=== PATIENT | male | born 1945 | race Caucasian/White ===

== ENCOUNTER 2023-02-02 15:00 | Outpatient (OUT) | payer MEDICARE, SELFPAY | END 2023-02-05 19:02 | disposition home or self-care (01) | PROVIDERS: PCP Internal Medicine; Visit Provider Surgery | DX: Z01.818 Encounter for other preprocedural examination (principal); Z86.010 Personal history of colon polyps; Z79.01 Long term (current) use of anticoagulants ==

== ENCOUNTER 2023-02-10 08:54 | Day surgery (SDC) | payer MEDICARE, SELFPAY ==
--- NOTE | 2023-02-10 | OP_ITS ---
OPERATION DATE: ??02/10/2023 PREOPERATIVE DIAGNOSIS:? Surveillance colonoscopy with personal history of colon polyps. POSTOPERATIVE DIAGNOSIS:? A 2 mm sigmoid polyp. PROCEDURE:? Colonoscopy to cecum with cold snare polypectomy x1 for sigmoid polyp. SURGEON:? Silas Herrera M.D. ANESTHESIA:? Monitored anesthesia care. ESTIMATED BLOOD LOSS:? 1 mL. INDICATIONS AND CONSENT:? Patient is a 77-year-old male with personal history of colon polyps, presents for surveillance colonoscopy.? Indications, risks, benefits, alternatives of proceeding with colonoscopy were explained extensively to the patient, including the risks of bleeding, colon perforation or anesthetic complications.? All of his questions were answered.? Informed consent was obtained. PROCEDURE:? Patient brought to the operating room, placed in the left lateral decubitus position.? Monitored anesthesia care was provided.? Rectal exam was performed which showed no masses or blood.? The scope was inserted into the anal canal.? Under direct visualization was advanced.? It was advanced to the cecum where cecal markings were clearly identified.? There was noted to be a good prep.? Upon withdrawal of the scope, mucosal surfaces were carefully examined.? There were no mass lesions or inflammatory changes.? There was mild sigmoid diverticulosis.? In the distal sigmoid, there was noted to be a 2 mm sigmoid polyp that was removed with cold snare with good hemostasis.? The scope was retroflexed in the anal canal.? There was no significant hemorrhoidal disease.? Scope was then withdrawn.? Patient tolerated procedure well, was sent to recovery room in good condition. Follow up colonoscopy for surveillance should be in five years.? CC:? Patient?s family physician KASSY
[2023-02-10 09:15] VITALS: BP 108/60; PULSE 74; RESP 24; TEMP 36; O2SAT 92; BMI 26.1
[2023-02-10] MEDS: LACTATED RINGER'S SOLUTION 1,000 ML 50 ML IV (09:23)
[2023-02-10 10:53] VITALS: BP 110/56; PULSE 72; RESP 20; TEMP 36.3; O2SAT 95
[2023-02-10 11:04] VITALS: BP 98/73; PULSE 66; RESP 20; O2SAT 93
== END 2023-02-10 11:05 | disposition home or self-care (01) ==
PROVIDERS: PCP Internal Medicine; Visit Provider Surgery
PROC: (CPT 45385; principal; 2023-02-10 11:15)
DX: K57.30 Diverticulosis of large intestine without perforation or abscess without bleeding (principal); K63.5 Polyp of colon; Z86.010 Personal history of colon polyps; I35.0 Nonrheumatic aortic (valve) stenosis; I25.10 Atherosclerotic heart disease of native coronary artery without angina pectoris; I48.91 Unspecified atrial fibrillation; N40.0 Benign prostatic hyperplasia without lower urinary tract symptoms; F32.A Depression, unspecified; I10 Essential (primary) hypertension; Z87.891 Personal history of nicotine dependence; E78.00 Pure hypercholesterolemia, unspecified; E78.5 Hyperlipidemia, unspecified; G47.33 Obstructive sleep apnea (adult) (pediatric); J43.8 Other emphysema; I49.5 Sick sinus syndrome; Z79.01 Long term (current) use of anticoagulants; Z95.0 Presence of cardiac pacemaker; Z79.82 Long term (current) use of aspirin; Z79.899 Other long term (current) drug therapy; Z99.81 Dependence on supplemental oxygen; N52.1 Erectile dysfunction due to diseases classified elsewhere; I77.1 Stricture of artery
CPT/HCPCS: 45385; 88305; J2704

== ENCOUNTER 2023-02-17 10:13 | Outpatient (OUT) | payer MEDICARE, SELFPAY ==
--- NOTE | 2023-02-10 | OP_ITS ---
OPERATION DATE: ??02/10/2023 PREOPERATIVE DIAGNOSIS:? Personal history of colon polyps. POSTOPERATIVE DIAGNOSIS:? 2 mm sigmoid polyp, also sigmoid diverticulosis. PROCEDURE:? Colonoscopy to cecum with cold snare polypectomy x1. SURGEON:? Silas Herrera M.D. ANESTHESIA:? Monitored anesthesia care. ESTIMATED BLOOD LOSS:? Less than 1 mL. INDICATIONS AND CONSENT:? Patient is a 77-year-old male with multiple medical problems, with a personal history of colon polyps.? Indications, risks, benefits, alternatives of proceeding with colonoscopy were explained extensively to the patient, including the risks of bleeding, colon perforation or anesthetic complications.? All of his questions were answered.? Informed consent was obtained.? PROCEDURE:? Patient brought to the operating room, placed in the left lateral decubitus position.? Monitored anesthesia care was provided.? Rectal exam was performed which showed no masses or blood.? The scope was inserted into the anal canal.? Under direct visualization was advanced.? It was advanced to the cecum where cecal markings were clearly identified.? Upon withdrawal of the scope, mucosal surfaces were carefully examined.? There were no mass lesions or inflammatory changes.? There was moderate sigmoid and descending colon diverticulosis without inflammatory changes or scarring.?? In the distal sigmoid, there was noted to be a 2 mm sessile polyp that was removed with cold snare with good hemostasis.? The scope was retroflexed in the anal canal.? There was no significant hemorrhoidal disease.? The scope was then withdrawn.? Patient tolerated procedure well, was sent to recovery room in good condition. f/u colonoscopy should be in 5 years, but may change based on pathology results. CC:? Camille Ahuja
--- NOTE | 2023-02-17 10:33 | CT_ITS ---
[address] [address] Patient Name: BERNARD HERRERA MRN: [id number] date: 1945 Sex: M Assigned Patient Location: CT Current Patient Location: CT Accession/Order Number: [id number] Exam Date: 02/17/2023 10:25 Report Date: 02/17/2023 12:13 At the request of: STALIN ONOFRE Procedure: CT lung screening low-dose EXAMINATION: CT lung screening low-dose HISTORY: History Of Tobacco Abuse Z87.891 COMPARISON: CT chest 08/13/2022, 02/02/2022, 07/18/2019, 09/27/2018 TECHNIQUE: Axial, Coronal, and Sagittal images were created without the administration of IV contrast material. Dose reduction techniques were achieved by using automated exposure control and/or adjustment of mA and/or kV according to patient size and/or use of iterative reconstruction technique. FINDINGS: LUNGS: Chronic 2.1 x 1.0 cm area of soft tissue/scarring within lingula. No suspicious nodules. Marked emphysematous changes. PLEURA: No mass, effusion, or pneumothorax. VASCULATURE: No abnormality. JOEY: No mass or pathologic adenopathy. MEDIASTINUM: No mass or pathologic adenopathy. CARDIAC: Marked atherosclerotic coronary artery disease. AORTA: No aneurysm or dissection. CHEST WALL: No mass or axillary adenopathy BONES: No bone lesion or fracture. LIMITED ABDOMEN: No suspicious findings. Limited images of the upper abdomen. OTHER: Negative. CT/CT lung screening low-dose IMPRESSION: 1. Lung-RADS 2- Benign Appearance or Behavior. Nodules with a very low likelihood of becoming a clinically active cancer due to size or lack of growth. Follow-up CT Chest in 1 year. 2. Marked emphysematous changes. 3. Marked atherosclerotic coronary artery disease. Electronically authenticated by: OSIRIS JIMENEZ Date: 02/17/2023 12:13
== END 2023-02-17 10:14 | disposition home or self-care (01) ==
LOC: CT 10:13
PROVIDERS: PCP Internal Medicine; Visit Provider Internal Medicine
DX: Z87.891 Personal history of nicotine dependence (principal)
CPT/HCPCS: 71271

== ENCOUNTER 2023-08-26 09:59 | Outpatient (OUT) | payer MEDICARE, SELFPAY ==
--- NOTE | 2023-08-26 10:15 | CT_ITS ---
[address] [address] Patient Name: BERNARD HERRERA MRN: [id number] date: 1945 Sex: M Assigned Patient Location: CT Current Patient Location: CT Accession/Order Number: [id number] Exam Date: 08/26/2023 10:08 Report Date: 08/26/2023 11:33 At the request of: STALIN ONOFRE Procedure: CT lung screening low-dose EXAM TYPE: CT lung screening low-dose INDICATION: Personal history of nicotine dependence COMPARISON: L3 CT scan of the chest 02/17/2023, 02/02/2022 TECHNIQUE: Noncontrast, Low dose, helical axial images of the chest were obtained, and thin section, axial MIP, and coronal and sagittal reformats were also submitted from the acquisition scanner under radiologist supervision. Each series was submitted in a lung algorithm. Dose reduction techniques were achieved by using automated exposure control and/or adjustment of mA and/or kV according to patient size and/or use of iterative reconstruction technique. FINDINGS: Please note that this examination was tailored for evaluation of pulmonary nodules, and therefore soft tissue detail is suboptimal. Heart size within normal limits. No pericardial effusion. Left subclavian CIED. Heavy calcification of the mitral annulus, aortic valve and coronary arteries. Calcified atherosclerotic change within the aorta. No aortic aneurysm. No central endobronchial nodule. Debris within the distal trachea. Moderate diffuse emphysematous change with grossly unchanged slightly nodular atelectasis/scar within the lingula. No pleural effusion or pneumothorax. No new suspicious pulmonary nodule. Small sliding hiatal hernia. No acute fracture. CT/CT lung screening low-dose IMPRESSION: 1. Lung RADS category 2: Benign. LD CT scan of the chest when he recommended. Electronically authenticated by: DONALD ALONZO Date: 08/26/2023 11:33
== END 2023-08-26 10:00 | disposition home or self-care (01) ==
LOC: CT 10:00
PROVIDERS: PCP Internal Medicine; Visit Provider Internal Medicine
DX: Z87.891 Personal history of nicotine dependence (principal)
CPT/HCPCS: 71271

== ENCOUNTER 2023-12-06 12:17 | Outpatient (OUT) | payer MEDICARE, SELFPAY ==
[2023-12-06 12:46] LABS: Basophils Percent Auto 0.3 % (0.2-2.0); Eosinophils Absolute Auto 0.2 10^3/uL (0.0-0.7); Eosinophils Percent Auto 2.3 % (0.9-7.0); Hematocrit 38.8 % (42.0-54.0); Hemoglobin 12.8 g/dL (14.0-18.0); Immature Granulocytes Abs Auto 0.06 10^3/uL (0.00-0.03); Immature Granulocytes Pct Auto 0.7 % (0.0-0.5); Lymphocytes Absolute Auto 1.8 10^3/uL (1.2-3.8); Mean Corpuscular Hemoglobin 31.6 pg (25.9-34.0); Mean Corpuscular Volume 95.8 fL (80.0-94.0); Mean Platelet Volume 11.1 fL (9.5-13.5); Monocytes Absolute Auto 0.7 10^3/uL (0.3-0.8); Monocytes Percent Auto 7.2 % (1.7-12.0); Neutrophils Absolute Auto 6.5 10^3/uL (1.4-6.5); Neutrophils Percent Auto 70.5 % (43.0-75.0); Platelet Count 193 10^3/uL (150-450); Red Blood Count 4.05 10^6/uL (4.70-6.10); Red Cell Distribution Width 14.8 % (11.0-15.0); White Blood Count 9.2 10^3/uL (4.0-11.0)
[2023-12-06 13:28] LABS: Prostate Specific Antigen Scrn 2.87 ng/mL (<=4.00)
[2023-12-06 14:03] LABS: Alanine Aminotransferase 21 U/L (16-63); Albumin Globulin Ratio 1.1; Albumin Level 3.8 g/dL (3.4-5.0); Alkaline Phosphatase 65 U/L (46-116); Aspartate Amino Transferase 15 U/L (15-37); BUN Creatinine Ratio 19.1; Bilirubin Total 0.6 mg/dL (0.2-1.0); Calcium 9.3 mg/dL (8.5-10.1); Carbon Dioxide 27.6 mmol/L (21.0-32.0); Chloride 103 mmol/L (98-107); Chol HDL Ratio 2.2; Cholesterol 101 mg/dL (<=200); Estimated GFR (African America >60 (>=60); Estimated GFR (Non-African Ame >60 (>=60); Globulin 3.4 g/dL; Glucose 113 mg/dL (74-106); HDL Cholesterol 45 mg/dL (40-60); Potassium 3.6 mmol/L (3.5-5.1); Sodium 138 mmol/L (136-145); Total Protein 7.2 g/dL (6.4-8.2); Triglycerides 40 mg/dL (<=150)
== END 2023-12-06 12:18 | disposition home or self-care (01) ==
LOC: LAB 12:18
PROVIDERS: PCP Internal Medicine; Visit Provider Internal Medicine
DX: I48.91 Unspecified atrial fibrillation (principal); I10 Essential (primary) hypertension; I25.10 Atherosclerotic heart disease of native coronary artery without angina pectoris; Z12.5 Encounter for screening for malignant neoplasm of prostate
CPT/HCPCS: 36415; 80053; 80061; 85025; G0103

== ENCOUNTER 2024-03-06 09:59 | Outpatient (OUT) | payer MEDICARE, SELFPAY ==
--- OUTSIDE RECORDS SUMMARY | 2024-03-06 10:19 | XMS_ITS | CCD ---
Author Organization [facility] Care Team Providers Care Inventory Analyst Name Role Phone MD Caesar Glover Primary Care Provider MD Angel Betancourt Attending Provider MD Caesar Glover Attending Provider [phone] Caesar Glover Unavailable Unavailable Unavailable MD Caesar Glover Primary Care Provider MD Caesar Glover Attending Provider [phone] MD Angel Betancourt Attending Provider MD Caesar Glover Primary Care Provider MD Caesar Glover Primary Care Provider MD Angel Betancourt Attending Provider CHUCK BOWLES, Dr. LINDER Attending Bernard Glover, Dr. Caesar Jesus Primary Care Abrilv dheeraj BETANCOURT II, Dr. LINDER Attending Bernard BETANCOURT II, Dr. LINDER Referring Bernard Glover, Dr. Caesar Jesus Primary Care Unav MD Caesar Morris Primary Care Provider MD Angel Betancourt Attending Provider DR CAESAR GLOVER Primary Care Unavailable CHUCK, DR LINDER Admitting Unavailable CHUCK, DR LINDER Attending Unavailable CHUCK, DR LINDER Consulting Unavailable MISC, DR PUTNAM Admitting Unavailable DR CAESAR GLOVER Primary Care Unavailable MISC, DR PUTNAM Attending Unavailable PATRICC, DR PUTNAM Consulting Unavailable STALIN ONOFRE Attending Unavailable BELEN, DR CAESAR Perea Consulting Unavailable BELEN, DR CAESAR Perea Primary Care Unavailable SAMSA, STALIN Admitting Unavailable SAMSA STALIN Consulting Unavailable SAMSA, STALIN Admitting Unavailable SAMSA, STALIN Attending Unavailable BELEN, DR CAESAR Perea Primary Care Unavailable SAMSA, STALIN Attending Unavailable ZIEBER, DR OSIRIS Clinton Consulting Unavailable GLOVER, DR CAESAR Perea Primary Care Unavailable SAMSA, STALIN Admitting Unavailable SAMSA, STALIN Consulting Unavailable MCGUINCristian, DR LINDER Admitting Unavailable MCGUINN, DR LINEDR Attending Unavailable MCGUINN, DR LINDER Consulting Unavailable BELEN, DR ACESAR Perea Primary Care Unavailable MD Caesar Glover Primary Care Provider [phone] MD Angel Betancourt Attending Provider Ferny White Unavailable CAESAR GLOVER Primary Care Physician Caesar Glover Unavailable Silas CATALAN Attending Unavailable HOSSEIN, Silas Clinton Attending Unavailable HOSSEIN, Silas Clinton Attending Unavailable MD Caesar Glover Primary Care Provider MD Angel Betancourt Attending Provider Angel Betancourt Attending Unavail able Caesar Glover Primary Care Unavailable Angel Betancourt Admitting Unavail able McGuinnAngel Attending Unavail able Caesar Glover Primary Care Unavailable Chuck, Angel Jade Admitting Unavail able McGuinnAngel Attending Unavail able Caesar Glover Primary Care Unavailable McGuinnAngel Admitting Unavail able McGuinAngel foster Attending Unavail able Angel Betancourt Admitting Unavail able Caesar Glover Primary Care Unavailable Belen, Dr. Caesar Jesus Primary Care Unav ailable Belen, Dr. Caesar Jesus Primary Care Unav ailFerny Mixon Referring Unavailable Ferny Figueroa Attending Unavailable Belen, Dr. Caesar Jesus Primary Care Unav Ferny Randle Attending Unavailable McGuinn II, Dr. Angel Jade Attending Unavailable Belen, Dr. Caesar Jesus Primary Care Unacesar ailable McGuinn II, Dr. Angel Jade Referring Unavailable McGuinn II, Dr. Angel Jade Attending Unavailable Glover, Dr. Caesar Jesus Primary Care Unav ailable McGuinn II, Dr. Angel Jade Referring Unavailable McGuinn II, Dr. Angel Jade Referring Unavailable McGuinn II, Dr. Angel Jade Attending Unavailable Belen, Dr. Caesar Jesus Primary Care Romel Glover, Dr. Caesar Jesus Primary Care Romel Glover, Dr. Caesar Jesus Primary Care Romel Glover, Dr. Caesar Jesus Primary Care Romel Glover MD, Caesar Jesus Primary Care Provider Unavailable ANGEL BETANCOURT Attending Unavailable BELEN, CAESAR JESUS Primary Care Unavaila ble Allergies Allergy Classification Reported Allergen(s) Allergy Type Date of Onset Reaction(s) Facility (20 sources) Cefaclor; Translations: [Ceclor CAPS] Drug Allergy Hives, Itching [facility] 250 DO Work Phone: (14 sources) Cefaclor; Translations: [Cefaclor] Drug Allergy 10-30-19 22 Eruption of skin (disorder), Hives, Itching [facility] (8 sources) Cefaclor; Translations: [Ceclor] Drug Allergy 07-19-19 13 Unknown [facility] (6 sources) Ceclor *CEPHALOSPORINS* Propensity to adverse reactions Unknown [place] Other (6 sources) Allergies Reconciled Propensity to adverse reactions Unknown [place] Other (6 sources) patient allergy list reviewed by nurse or physicia Propensity to adverse reactions 04-08-20 18 Comment:Done [place] Other (1 source) Cephalosporins (Antibiotic) Allergy to substance 12-06-19 24 Unknown Reaction [facility] Medications Current Medications Medication Drug Class(es) Dates Sig (Normalized) Sig (Original) Aclidinium Calvin (20 sources) Start: 10-29-2021 Aclidinium Calvin (Tudorza Pressair) 400 mcg/actuation aerosol powdr breath activated Active 1 INH INHALATION As Directed October 29, 2021 9:32am Start: 10-29-2021 End: 10-29-2021 Aclidinium Calvin (Tudorza Pressair) 400 mcg/actuation aerosol powdr breath activated Discontinued INHALATION October 29, 2021 9:32am October 29, 2021 9:40am Start: 10-29-2021 End: 12-03-2023 Aclidinium Calvin (Tudorza Pressair) 400 mcg/actuation aerosol powdr breath activated Discontinued 1 INH INHALATION As Directed October 29, 2021 12:00am December 03, 2023 8:14am Start: 10-29-2021 Aclidinium Bro mide (Tudorza Pressair) 400 mcg/actuation aerosol powdr breath activated Active 1 INH INHALATION As Directed October 28, 2021 11:00pm Start: 10-29-2021 End: 10-29-2021 Aclidinium Calvin (Tudorza Pressair) 400 mcg/actuation aerosol powdr breath activated Discontinued INHALATION October 28, 2021 11:00pm October 29, 2021 8:40am Start: 10-29-2021 Aclidinium Bro mide (Tudorza Pressair) 400 mcg/actuation aerosol powdr breath activated Active 1 INH INHALATION As Directed October 29, 2021 12:00am Start: 10-29-2021 End: 10-29-2021 Aclidinium Calvin (Tudorza Pressair) 400 mcg/actuation aerosol powdr breath activated Discontinued INHALATION October 29, 2021 12:00am October 29, 2021 9:40am Start: 02-19-2021 Tudorza Pressa ir 400 MCG/ACT Inhalation Aerosol Powder Breath Activated as directed Quantity: 0 Refills: 0 Ordered: 02-Oct-2021 DO Start : 19-Feb-2021 Active Albuterol (20 sources) beta2-Adrenergic Agonist Start: 01-08-2023 take 2 puff(s) by inhalation every four hours Albuterol (Eqv-ProAir HFA) 2 puff(s), Inhalation, q4hr Shortness of breath or wheezing, Refill(s) 0 Start Date: 01/08/23 Status: Ordered Start: 10-29-2021 End: 12-06-2023 take 1 puff(s) by inhalation every six hours Albuterol Sulfate (Proair Hfa) 90 mcg/actuation Hfa Aerosol Inhaler Discontinued 2 PUFF INHALATION Q6H October 29, 2021 12:00am December 06, 2023 11:57am Start: 09-29-2021 Albuterol Sulf ate HFA 108 (90 Base) MCG/ACT Inhalation Aerosol Solution Quantity: 25 Refills: 0 Ordered: 30-Jan-2022 DO Start : 29-Sep-2021 Complete Start: 10-31-2020 take 2 puff(s) by in halation every four hours as needed Albuterol Sulfate HFA 108 (90 Base) MCG/ACT 2 puffs as needed Inhalation every 4 hrs Oct, Active Start: 10-31-2020 take 2 puff(s) by in halation every four hours as needed Albuterol Sulfate HFA 108 (90 Base) MCG/ACT 2 puffs as needed Inhalation every 4 hrs Oct, Active 24 hr alfuzosin hydrochloride 10 mg extended release oral tablet (8 sources) alpha-Adrenergic Niecy Start: 12-24-2022 take 1 tablet by mouth once daily alfuzosin 10 mg ER Tab 10 mg = 1 tab(s), Oral, Daily, Refills(s) 0 Start Date: 01/13/23 Status: Ordered amLODIPine 5 mg oral tablet (20 sources) Dihydropyridine Calcium Channel Niecy Start: 04-09-2021 take 5 mg by mouth once daily Amlodipine Active 5 MG PO Daily October 29, 2021 12:00am Start: 07-07-2016 End: 06-14-2023 take 1 tablet by mouth once daily amLODIPine (Norvasc) 10 mg tablet Take 1 tablet (10 mg) by mouth once daily. 0 04/06/2022 06/14/2023 Discontinued (Side effects) apixaban 5 mg oral tablet (16 sources) Factor Xa Inhibitor Start: 12-03-2023 take 5 mg by mouth twice daily Apixaban Active 5 MG PO Twice daily December 03, 2023 12:00am Start: 09-16-2022 take 1 tablet by kim th twice daily Eliquis 5 mg tablet Take 1 tablet (5 mg) by mouth 2 times a day. 0 09/16/2022 Active aspirin 81 mg delayed release oral tablet (20 sources) Platelet Aggregation Inhibitor, Nonsteroidal Anti-inflammatory Drug Start: 09-18-2022 take 1 tablet by mouth two times weekly Aspirin 81 MG Oral Tablet Delayed Release 1 tab twice weekly Quantity: 24 Refills: 3 Ordered: 18-Sep-2022 Angel Betancourt MD Start : 18-Sep-2022 Active Start: 10-29-2021 End: 05-17-2024 Aspirin (Ching Low Dose Aspi rin) 81 mg Tablet,Delayed Release (Dr/Ec) Discontinued 81 MG PO Daily October 29, 2021 12:00am December 03, 2023 8:14am take 1 tablet by kim th every week aspirin 81 mg EC tablet Take 1 tablet (81 mg) by mouth 1 (one) time per week. 0 Active atorvastatin 20 mg oral tablet (20 sources) HMG-CoA Reductase Inhibitor Start: 03-03-2022 take 1 tablet by mouth once daily at bedtime atorvastatin (Lipitor) 20 mg tablet Take 1 tablet (20 mg) by mouth once daily at bedtime. 0 03/03/2022 Active dexamethasone 6 mg oral tablet (7 sources) Corticosteroid Start: 10-31-2020 take 1 tablet by mouth every twenty-four hours Dexamethasone 6 MG 1 tablet Orally Once a day for 5 days Oct, Active docosahexaenoic acid 120 mg / eicosapentaenoic acid 180 mg oral capsule (20 sources) take 1 capsule by mouth every other day fish oil concentrate (Starlight-3) 120-180 mg capsule Take 1 capsule (1 g) by mouth every other day. 0 Active take 1 capsule by mouth every ot her day Fish Oil 1000 MG Oral Capsule TAKE 1 CAPSULE EVERY OTHER DAY Quantity: 0 Refills: 0 Ordered: 24-Oct-2021 DO Active Fluticasone Propion-Salmeterol (14 sources) Corticosteroid, beta2-Adrenergic Agonist Start: 10-29-2021 take 1 puff(s) by inhalation twice daily Fluticasone Propion-Salmeterol (Advair Hfa) 230-21 mcg/actuation HFA aerosol inhaler Active 2 PUFF INHALATION Twice daily October 29, 2021 9:32am Start: 10-29-2021 End: 12-06-2023 take 1 puff(s) by inhalation twice daily Fluticasone Propion-Salmeterol (Advair Hfa) 230-21 mcg/actuation HFA aerosol inhaler Discontinued 2 PUFF INHALATION Twice daily October 29, 2021 12:00am December 06, 2023 11:56am Start: 10-29-2021 take 1 puff(s) by in halation twice daily Fluticasone Propion-Salmeterol (Advair Hfa) 230-21 mcg/actuation HFA aerosol inhaler Active 2 PUFF INHALATION Twice daily October 28, 2021 11:00pm Start: 10-29-2021 take 1 puff(s) by in halation twice daily Fluticasone Propion-Salmeterol (Advair Hfa) 230-21 mcg/actuation HFA aerosol inhaler Active 2 PUFF INHALATION Twice daily October 29, 2021 12:00am Start: 11-28-2020 take 2 puff(s) by in halation every twelve hours Advair HFA 230-21 MCG/ACT Inhalation Aerosol INHALE 2 PUFFS AT 12 HOUR INTERVALS (MORNING AND EVENING). Quantity: 0 Refills: 0 Ordered: 14-Aug-2021 DO Start : 28-Nov-2020 Active 30 actuat fluticasone furoate 0.1 mg/actuat / umeclidinium 0.0625 mg/actuat / vilanterol 0.025 mg/actuat dry powder inhaler (9 sources) Anticholinergic, Corticosteroid, beta2-Adrenergic Agonist Start: 12-01-2022 take 1 puff(s) by inhalation once daily Trelegy Ellipta 100-62.5-25 MCG/ACT 1 puff Inhalation Once a day November, Active Start: 06-21-2022 take 1 puff(s) by in halation once daily Trelegy Ellipta 100-62.5-25 mcg blister with device Inhale 1 puff once daily. 0 06/21/2022 Active Naqwzppaqyz-Xsnycepab-Taasvc er (1 source) Start: 12-06-2023 Fjxvhsdumou-Rzaeedlts-Ewdtqw er (Trelegy Ellipta) 200-62.5-25 mcg blister with device Active 1 INH INHALATION Daily December 06, 2023 12:00am hydroCHLOROthiazide 25 mg or al tablet (20 sources) Thiazi de Dicourtt ic Start: 06-14-2023 take 1 tablet by mouth once daily hydroCHLOROthiazide (HYDRODiuril) 25 mg tablet Indications: Essential hypertension Take 1 tablet (25 mg) by mouth once daily. 90 tablet 3 06/14/2023 Active Start: 07-07-2016 End: 06-14-2023 take 25 mg by mouth once daily Hydrochlorothiazide Active 25 MG PO Daily October 29, 2021 12:00am lisinopril 30 mg oral tablet (20 sources) Angiotensin Converting Enzyme Inhibitor Start: 07-07-2016 take 30 mg by mouth once daily Lisinopril Active 30 MG PO Daily October 29, 2021 12:00am metoprolol tartrate 50 mg oral tablet (17 sources) beta-Adrenergic Niecy Start: 12-03-2023 take 50 mg by mouth once daily Metoprolol Tartrate Active 50 MG PO Daily December 03, 2023 12:00am Start: 04-09-2021 Metoprolol Tar trate 50 MG Oral Tablet Quantity: 180 Refills: 0 Ordered: 11-Apr-2021 DO Start : 09-Apr-2021 Complete Metoprolol Tartr ate 50 MG (Prior Auth#:[id number]) Oral Active multivitamin (Daily Multi-Vitamin) tablet (1 source) take 1 tablet by mouth once daily multivitamin (Daily Multi-Vitamin) tablet Take 1 tablet by mouth once daily. 0 Active pravastatin sodium 40 mg oral tablet (13 sources) HMG-CoA Reductase Inhibitor Start: 12-03-19 take 40 mg by mouth once daily Pravastatin Active 40 MG PO Daily December 03, 2023 12:00am Start: 04-27-2021 take 1 tablet by kim th once daily Pravastatin Sodium 40 MG Oral Tablet TAKE 1 TABLET DAILY. Quantity: 90 Refills: 3 Ordered: 24-Oct-2021 Angel Betancourt MD Start : 27-Apr-2021 Active sertraline 50 mg oral tablet (20 sources) Serotonin Reuptake Inhibitor Start: 07-07-2016 take 50 mg by mouth once daily Sertraline Active 50 MG PO Daily October 29, 2021 12:00am spironolactone 25 mg oral tablet (12 sources) Aldosterone Antagonist Start: 07-08-2022 take 1 tablet by mouth once daily spironolactone (Aldactone) 25 mg tablet Take 1 tablet (25 mg) by mouth once daily. 0 09/18/2022 Active tadalafil 20 mg oral tablet (10 sources) Phosphodiesterase 5 Inhibitor Start: 12-06-2023 take 1 dose by mouth every twenty-four hours Tadalafil Active 20 MG PO Daily 01 15December 06, 2023 12:00am administer approximately 30min before sexual activity; do not use more than 1 dose per 24hrs Start: 12-03-2023 End: 12-06-2023 take 5 mg by mouth once daily Tadalafil Discontinued 5 MG PO Daily December 03, 2023 12:00am December 06, 2023 11:47am Start: 12-01-2022 take 1 tablet by kim th every twenty-four hours Tadalafil 5 MG 1 tablet as needed Orally Once a day November, Active Trelegy Ellipta 100 mcg-62.5 mcg-25 mcg inhalation powder (1 source) Start: 01-08-2023 take 1 puff(s) by inhalation once daily Trelegy Ellipta 100 mcg-62.5 mcg-25 mcg inhalation powder = 1 puff(s), Inhalation, Daily, Refills(s) 0 Start Date: 01/08/23 Status: Ordered Completed/Discontinued Medications Medication Drug Class(es) Dates Sig (Normalized) Sig (Original) albuterol 0.833 mg/ml / ipratropium bromide 0.167 mg/ml inhalation solution (12 sources) Anticholinergic, beta2-Adrenergic Agonist Start: 01-08-2022 take 1 dose by inhalation four times daily Ipratropium-Albut jennifer 0.5-2.5 (3) MG/3ML Inhalation Solution INHALE 1 VIAL VIA NEBULIZER 4 TIMES A DAY Quantity: 360 Refills: 0 Ordered: 04-Feb-2022 DO Start : 08-Jan-2022 Complete clindamycin 300 mg oral capsule (20 sources) Lincosamide Antibacterial Start: 11-06-2021 Clindamycin HCl - 300 MG Oral Capsule Quantity: 12 Refills: 0 Ordered: 06-Nov-2021 DO Start : 06-Nov-2021 Complete Start: 11-06-2021 End: 12-03-2023 take 600 mg by mouth three times daily Clindamycin Hcl Discontinued 600 MG PO Three times daily 12 November 06, 2021 12:00am December 03, 2023 8:14am Multi Vitamin Daily Oral Tablet (20 sources) take 1 tablet by kim th once daily Multi Vitamin Daily Oral Tablet TAKE 1 TABLET DAILY. Quantity: 0 Refills: 0 Ordered: 24-Oct-2021 DO Active Multi Vitamin Daily TABS (3 sources) Multi Vitamin Da radha TABS TAKE 1 TABLET DAILY. Quantity: 0 Refills: 0 Ordered: 24-Oct-2021 DO Active Trelegy Ellipta AEPB (17 sources) Trelegy Ellipta AEPB As directed. Quantity: 0 Refills: 0 Ordered: 06-Apr-2022 DO Active Problems Active Problems Problem Classification Problem Date Documented Da te Episodic/Chronic Acute bronchitis (2 sources) Acute bronchitis; Translations: [Acute bronchitis, unspecified] Episodic Asthma (6 sources) Uncomplicated mild persistent asthma; Translations: [Mild persistent asthma, uncomplicated] Chronic Cardiac dysrhythmias (20 sources) Sick sinus syndrome; Translations: [Sinoatrial node dysfunction] Onset: 06-09-2023 01-08-2023 Chronic Chronic obstructive pulmonary disease and bronchiectasis (20 sources) Pulmonary emphysema; Translations: [Other emphysema] Onset: 04-08-2018 Chronic Conduction disorders (20 sources) H/O: cardiac pacemaker in situ; Translations: [Cardiac pacemaker in situ] Onset: 04-06-2018 06-14-2023 Chronic Coronary atherosclerosis and other heart disease (20 sources) Angina pectoris; Translations: [Other and unspecified angina pectoris] Onset: 04-06-2018 Chronic Diabetes mellitus with complications (6 sources) Hyperglycemia due to type 2 diabetes mellitus; Translations: [Type 2 diabetes mellitus with hyperglycemia] Chronic Diabetes mellitus without complication (2 sources) Type 2 diabetes mellitus without complication; Translations: [Diabetes mellitus without mention of complication, type II or unspecified type, not stated as uncontrolled] Onset: 04-06-2018 Chronic Disorders of lipid metabolism (20 sources) Hyperlipidemia; Translations: [Other and unspecified hyperlipidemia] Onset: 07-06-2022 01-08-2023 Chronic Diverticulosis and diverticulitis (6 sources) Diverticular disease of colon; Translations: [Diverticulosis of intestine, part unspecified, without perforation or abscess without bleeding] Onset: 04-06-2018 Chronic Essential hypertension (20 sources) Essential hypertension; Translations: [Unspecified essential hypertension] Onset: 07-06-2022 Chronic Genitourinary symptoms and ill-defined conditions (7 sources) Polyuria; Translations: [Other polyuria] Onset: 11-08-2018 Episodic Heart valve disorders (20 sources) Aortic valve stenosis; Translations: [Aortic valve disorders] Onset: 08-12-2022 01-08-2023 Chronic Hyperplasia of prostate (14 sources) Nocturia due to benign prostatic hypertrophy; Translations: [Benign prostatic hyperplasia with lower urinary tract symptoms] Onset: 11-08-2018 01-08-2023 Chronic Immunizations and screening for infectious disease (12 sources) Patient encounter status; Translations: [Other specified vaccination] Episodic Malaise and fatigue (2 sources) Chronic fatigue syndrome; Translations: [Chronic fatigue, unspecified] Onset: 04-06-2018 Chronic Miscellaneous mental health disorders (2 sources) Psychosexual dysfunction associated with inhibited sexual excitement; Translations: [Psychosexual dysfunction with inhibited sexual excitement] Onset: 04-06-2018 Chronic Mood disorders (1 source) Depressive disorder 01-08-2023 Chronic Mycoses (2 sources) Candidiasis of mouth; Translations: [Candidal stomatitis] Episodic Nonspecific chest pain (8 sources) Chest pain; Translations: [Chest pain, unspecified] Onset: 06-09-2023 06-09-2023 Episodic Other aftercare (2 sources) Long-term current use of inhaled steroid; 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] Episodic Other and unspecified benign neoplasm (2 sources) History of polyp of colon; Translations: [Personal history of colonic polyps] Onset: 01-13-2023 Episodic Other circulatory disease (20 sources) Carotid bruit; Translations: [Other symptoms involving cardiovascular system] Onset: 06-09-2023 01-08-2023 Episodic Other circulatory disease (1 source) Other specified symptoms and signs involving the circulatory and respiratory systems; Translations: [Oth symptoms and signs involving the circ and resp systems] Onset: 05-07-2022 Episodic Other injuries and conditions due to external causes (2 sources) History of fall; Translations: [History of falling] Episodic Other lower respiratory disease (20 sources) Difficulty breathing; Translations: [Other respiratory abnormalities] Onset: 06-09-2023 06-09-2023 Episodic Other lower respiratory disease (10 sources) Dyspnea on exertion; Translations: [Shortness of breath] 01-08-2023 Episodic Other lower respiratory disease (4 sources) Shortness of breath; Translations: [SHORTNESS OF BREATH] Onset: 08-10-2022 Episodic Other lower respiratory disease (9 sources) Nodule of lung; Translations: [Solitary pulmonary nodule] 01-08-2023 Episodic Other lower respiratory disease (6 sources) Solitary nodule of lung; Translations: [Solitary pulmonary nodule] Episodic Other lower respiratory disease (2 sources) Solitary pulmonary nodule Episodic Other male genital disorders (9 sources) Erectile dysfunction co-occurrent and due to arterial insufficiency; Translations: [Erectile dysfunction due to arterial insufficiency] 01-08-2023 Chronic Other male genital disorders (1 source) Erectile dysfunction due to arterial insufficiency Chronic Other nutritional; endocrine; and metabolic disorders (20 sources) Overweight in adulthood with body mass index of 25 or more but less than 30; Translations: [Overweight] 01-13-2023 Episodic Other nutritional; endocrine; and metabolic disorders (4 sources) Overweight; Translations: [Overweight] Onset: 06-14-2023 01-13-2023 Episodic Other nutritional; endocrine; and metabolic disorders (2 sources) Body mass index 25-29 - overweight; Translations: [Overweight] Onset: 06-14-2023 06-14-2023 Episodic Other nutritional; endocrine; and metabolic disorders (1 source) Overweight; Translations: [Overweight] Onset: 06-14-2023 Episodic Other screening for suspected conditions (not mental disorders or infectious disease) (2 sources) Screening for malignant neoplasm of respiratory tract; Translations: [Encounter for screening for malignant neoplasm of respiratory organs] Episodic Residual codes; unclassified (14 sources) Obstructive sleep apnea syndrome; Translations: [Obstructive sleep apnea (adult) (pediatric)] Onset: 04-06-2018 01-08-2023 Chronic Residual codes; unclassified (6 sources) Sleep apnea; Translations: [Sleep apnea, unspecified] Onset: 04-06-2018 Chronic Residual codes; unclassified (3 sources) Obstructive sleep apnea (adult) (pediatric); Translations: [Obstructive sleep apnea (adult)(pediatric)] Chronic Residual codes; unclassified (2 sources) Procedure not done; Translations: [Procedure and treatment not carried out because of patient's decision for unspecified reasons] Episodic Respiratory failure; insufficiency; arrest (adult) (2 sources) Chronic respiratory failure; Translations: [Chronic respiratory failure with hypoxia] Chronic Respiratory failure; insufficiency; arrest (adult) (2 sources) Acute hypoxemic respiratory failure; Translations: [Acute respiratory failure with hypoxia] Episodic Screening and history of mental health and substance abuse codes (20 sources) Ex-smoker; Translations: [Personal history of tobacco use] Onset: 11-08-2018 01-08-2023 Episodic Comment on above: Quit 2019 <1 ppd; Outside Source Comme nt: Comment on above: Quit 2019 <1 ppd; Substance-related disorders (10 sources) Nicotine dependence, cigarettes, with unspecified nicotine-induced disorders; Translations: [Mental disorder due to drug] Onset: 02-02-2022 Chronic Unclassified (6 sources) History of disease caused by Severe acute respiratory syndrome coronavirus 2 (situation); Translations: [Personal history of COVID-19] Unclassified (1 source) Encounter for checking and testing of cardiac pacemaker pulse generator [battery]; Translations: [Encounter for checking and testing of cardiac pacemaker pulse generator [battery]] Onset: 12-04-2022 Unclassified (1 source) Nonrheumatic mitral (valve) annulus calcification; Translations: [Nonrheumatic mitral (valve) annulus calcification] Onset: 08-13-2022 Past or Other Problems Problem Classification Problem Date Documented Da te Episodic/Chronic Cardiac dysrhythmias (2 sources) Bradycardia; Translations: [Bradycardia, unspecified] Onset: 04-06-2018 Episodic Coronary atherosclerosis and other heart disease (1 source) Presence of coronary angioplasty implant and graft; Translations: [Presence of coronary angioplasty implant and graft] Onset: 08-13-2022 Episodic Other lower respiratory disease (1 source) Other nonspecific abnormal finding of lung field; Translations: [Other nonspecific abnormal finding of lung field] Onset: 08-13-2022 Episodic Residual codes; unclassified (2 sources) Family history of diabetes mellitus; Translations: [Family history of diabetes mellitus] Onset: 04-06-2018 Episodic Unclassified (2 sources) Emphysema; Translations: [Other emphysema] Onset: 04-06-2018 Unclassified (1 source) Permanent atrial fibrillation Unclassified (1 source) Onset: 06-14-2023 06-14-2023 Results Test Name Value Interpretation Reference Range Facility Ambulatory Visit Summaryon 0 03-03-2023 Ambulatory Visit Summary HERRERAALAN :1945 Visit Date:03/03/2023 Ambulatory Visit Instructions Your Care Team Attending Physician - HOSSEIN BREAUX, Silas Clinton Primary Care Physician - BELEN BREAUX, CAESAR This Is Your Medications List albuterol (Albuterol (Eqv-ProAir HFA)) alfuzosin (alfuzosin 10 mg ER Tab) amlodipine apixaban (Eliquis 5 mg oral tablet) aspirin (aspirin 81 mg Oral EC Tab) atorvastatin (atorvastatin 20 mg Tab) fluticasone/umeclidinium/v ilanterol (Trelegy Ellipta 100 mcg-62.5 mcg-25 mcg inhalation powder) hydrochlorothiazide lisinopril sertraline spironolactone (spironolactone 25 mg Tab) Procedures Performed Colonoscopy (02/10/2023), Angioplasty, Colonoscopy, Colonoscopy, Implantation of cardiac pacemaker, Placement of stent in cardiac conduit. Medications What How Much When Instructions Unchanged albuterol (Albuterol (Eqv-ProAir HFA)) 2 Puffs Inhalation Every 4 hours as needed for Shortness of breath or wheezing Unchanged alfuzosin (alfuzosin 10 mg ER Tab) 1 Tablets By Mouth Every day Unchanged amlodipine 10 Milligram By Mouth Every day Unchanged apixaban (Eliquis 5 mg oral tablet) 1 Tablets By Mouth 2 times a day Unchanged aspirin (aspirin 81 mg Oral EC Tab) 1 Tablets By Mouth Every day Unchanged atorvastatin (atorvastatin 20 mg Tab) 1 Tablets By Mouth Every day Unchanged fluticasone/ umeclidinium/ vilanterol (Trelegy Ellipta 100 mcg-62.5 mcg-25 mcg inhalation powder) 1 Puffs Inhalation Every day Unchanged hydrochlorothiazide 25 Milligram By Mouth Every day Unchanged lisinopril 30 Milligram By Mouth Every day Unchanged sertraline 50 Milligram By Mouth Every day Unchanged spironolactone (spironolactone 25 mg Tab) 1 Tablets By Mouth Every day Allergies Ceclor (Rash) Problems Ongoing - Any problem that you are currently receiving treatment for. Aortic valve stenosis ASHD (arteriosclerotic heart disease) Atrial fibrillation BMI 26.0-26.9,adult BPH (benign prostatic hyperplasia) Carotid bruit Chronic obstructive pulmonary disease Depression Dyspnea on exertion Erectile dysfunction co-occurrent and due to arterial insufficiency Essential hypertension Ex-smoker Hypercholesteremia Hyperlipidemia Mitral valve annular calcification Nodule of lung Obstructive sleep apnea syndrome Overweight Personal history of colonic polyps Pulmonary emphysema Sick sinus syndrome [facility] General Surgery Office/Clini c Noteon 03-03-2023 General Surgery Office/Clinic Note Chief Complaint post operative follow up HPI Staff 21 day post operative follow up post colonoscopy with sigmoid polypectomy. History of Present Illness s/p colonoscopy with removal of 2 mm sigmoid colon polyp, pathology consistent with hyperplastic polyp; doing well, denies abd pain or blood in stools. Review of Systems ROS - Provider Constitutional: no fever, no sweats, no weight loss. Eyes: no glasses, no blurred vision, no visual loss. ENMT: no dentures, no hoarseness, no swallowing difficulties, no hearing loss, no ear infection(s), no nose bleeds. Cardiovascular: normal blood pressure, no chest pain, regular heartbeat, no heart murmur. Respiratory: no shortness of breath, no cough, no asthma, no wheezing. Gastrointestinal: no nausea, no vomiting, no diarrhea, no constipation, no blood in stool, no change in bowel habits, no abdominal pain, no hepatitis. Genitourinary: no kidney stones, no urine infection, no dysuria. Musculoskeletal: no pain, no weakness. Skin: no changing moles, no rash, no skin lumps. Neurologic: no seizures, no epilepsy, no headache. Psychiatric: no emotional or psychiatric problem. Heme/Lymph: no bleeding problems, no anemia, no blood clots, no transfusions. Allergy/Immunologic: no swollen lymph nodes/glands, no IV drug abuse. Other: Additional ROS info: Except as noted in the above Review of Systems and in the History of Present Illness, all other systems have been reviewed and are negative or noncontributory. Assessment/Plan 1. Hyperplastic colon polyp (K63.5: Polyp of colon) doing well; patient would not be do for screening colonoscopy for 10 years, can undergo if in good health; call with problems/questions. Follow-up No qualifying data available Problem List/Past Medical History Ongoing Aortic valve stenosis ASHD (arteriosclerotic heart disease) Atrial fibrillation BMI 26.0-26.9,adult BPH (benign prostatic hyperplasia) Carotid bruit Chronic obstructive pulmonary disease Depression Dyspnea on exertion Erectile dysfunction co-occurrent and due to arterial insufficiency Essential hypertension Ex-smoker Hypercholesteremia Hyperlipidemia Hyperplastic colon polyp Mitral valve annular calcification Nodule of lung Obstructive sleep apnea syndrome Overweight Personal history of colonic polyps Pulmonary emphysema Sick sinus syndrome Historical No qualifying data Procedure/Surgical History Colonoscopy (02/10/2023), Angioplasty, Colonoscopy, Colonoscopy, Implantation of cardiac pacemaker, Placement of stent in cardiac conduit. Medications Albuterol (Eqv-ProAir HFA), 2 puff(s), Inhalation, q4hr, PRN alfuzosin 10 mg ER Tab, 10 mg= 1 tab(s), Oral, Daily amlodipine, 10 mg, Oral, Daily aspirin 81 mg Oral EC Tab, 81 mg= 1 tab(s), Oral, Daily atorvastatin 20 mg Tab, 20 mg= 1 tab(s), Oral, Daily Eliquis 5 mg oral tablet, 5 mg= 1 tab(s), Oral, BID hydrochlorothiazide, 25 mg, Oral, Daily lisinopril, 30 mg, Oral, Daily sertraline, 50 mg, Oral, Daily spironolactone 25 mg Tab, 25 mg= 1 tab(s), Oral, Daily Trelegy Ellipta 100 mcg-62.5 mcg-25 mcg inhalation powder, 1 puff(s), Inhalation, Daily Allergies Ceclor (Rash) Social History Alcohol - Denies Alcohol Use, 01/13/2023 Substance Abuse - Denies Substance Abuse, 01/13/2023 Tobacco Former smoker, quit more than 30 days ago Tobacco Use:. Never Smokeless Tobacco Use:. Cigarettes, 1 per day. Started age 20.0 Years. Stopped age 74 Years., 01/13/2023 Family History COPD: Sister. Heart disease: Mother. Hypertension: Mother. Leukemia: Brother. Primary malignant neoplasm of colon: Father. Stroke: Mother. Immunizations Vaccine Date Status Comments SARS-CoV-2 (COVID-19) [id number].[id number] 05/18/2022 Recorded 2023-01-08: TPV70 SARS-CoV-2 (COVID-19) mRNA BNT-162b2 vax 05/21/2021 Recorded 2023-01-08: TPV70 SARS-CoV-2 (COVID-19) mRNA BNT-162b2 vax 11/13/2020 Recorded SARS-CoV-2 (COVID-19) mRNA BNT-162b2 vax 10/23/2020 Recorded Normal [facility] Comment on above: Result Comment: Elec tronically Signed By: HOSSEIN BREAUX, Silas Wong\Date and Time Signed: 03/03/23 15:26 EDT Reminderson 03-03-2023 Reminders - From: Meghan Gonzáles LPN To: Cristian - Clinical; Sent: 03/03/2023 15:23:27 EDT Show up: 01/11/2033 07:00:00 EDT Subject: colonoscopy recall Due Date/Time: 02/10/2033 07:00:00 EDT Reminder/Recall Patient due for screening colonoscopy 02/10/2033. [facility] Outside Colonoscopyon 2022 Outside Colonoscopy [id number]#1.00CD:127 [facility] Pathology Noteon 02-16-2023 Pathology Note [id number]#1.00CD:127 [facility] Pre-Certification Formon Pre-Certification Form [id number]#1.00CD:127 [facility] Consultation Noteon 02-01-20 Consultation Note [id number]#1.00CD:127 [facility] Formson 01-23-2023 Forms [id number]:127 [facility] Consent for Procedure/Surger yon 01-14-2023 Consent for Procedure/Surgery [id number]#1.00CD:127 [facility] Facesheeton 01-14-2023 Facesheet [id number]#1.00CD:127 [facility] Ambulatory Visit Summaryon 0 01-13-2023 Ambulatory Visit Summary ALAN HERRERA :1945 Visit Date:01/13/2023 Ambulatory Visit Instructions Your Diagnosis Personal history of colonic polyps Your Care Team Attending Physician - HOSSEIN BREAUX, Silas Clinton Primary Care Physician - BELEN BREAUX, CAESAR This Is Your Medications List Contact prescribing physician if questions or concerns albuterol (Albuterol (Eqv-ProAir HFA)) alfuzosin (alfuzosin 10 mg ER Tab) amlodipine apixaban (Eliquis 5 mg oral tablet) aspirin (aspirin 81 mg Oral EC Tab) atorvastatin (atorvastatin 20 mg Tab) fluticasone/umeclidinium/v ilanterol (Trelegy Ellipta 100 mcg-62.5 mcg-25 mcg inhalation powder) hydrochlorothiazide lisinopril sertraline spironolactone (spironolactone 25 mg Tab) Procedures Performed Angioplasty, Colonoscopy, Colonoscopy, Implantation of cardiac pacemaker, Placement of stent in cardiac conduit. Discharge Vitals Heart Rate (Peripheral) 76 Respiratory Rate 16 Blood Pressure 110/62 Height 180.34 cm Height 71 in Weight 86.9 kg Weight 191.18 lb BMI 26.72 Medications What How Much When Instructions Unchanged albuterol (Albuterol (Eqv-ProAir HFA)) 2 Puffs Inhalation Every 4 hours as needed for Shortness of breath or wheezing Contact prescribing physician if questions or concerns Unchanged alfuzosin (alfuzosin 10 mg ER Tab) 1 Tablets By Mouth Every day Contact prescribing physician if questions or concerns Unchanged amlodipine 10 Milligram By Mouth Every day Contact prescribing physician if questions or concerns Unchanged apixaban (Eliquis 5 mg oral tablet) 1 Tablets By Mouth 2 times a day Contact prescribing physician if questions or concerns Unchanged aspirin (aspirin 81 mg Oral EC Tab) 1 Tablets By Mouth Every day Contact prescribing physician if questions or concerns Unchanged atorvastatin (atorvastatin 20 mg Tab) 1 Tablets By Mouth Every day Contact prescribing physician if questions or concerns Unchanged fluticasone/ umeclidinium/ vilanterol (Trelegy Ellipta 100 mcg-62.5 mcg-25 mcg inhalation powder) 1 Puffs Inhalation Every day Contact prescribing physician if questions or concerns Unchanged hydrochlorothiazide 25 Milligram By Mouth Every day Contact prescribing physician if questions or concerns Unchanged lisinopril 30 Milligram By Mouth Every day Contact prescribing physician if questions or concerns Unchanged sertraline 50 Milligram By Mouth Every day Contact prescribing physician if questions or concerns Unchanged spironolactone (spironolactone 25 mg Tab) 1 Tablets By Mouth Every day Contact prescribing physician if questions or concerns Allergies Ceclor (Rash) Problems Ongoing - Any problem that you are currently receiving treatment for. Aortic valve stenosis ASHD (arteriosclerotic heart disease) Atrial fibrillation BMI 26.0-26.9,adult BPH (benign prostatic hyperplasia) Carotid bruit Chronic obstructive pulmonary disease Depression Dyspnea on exertion Erectile dysfunction co-occurrent and due to arterial insufficiency Essential hypertension Ex-smoker Hypercholesteremia Hyperlipidemia Mitral valve annular calcification Nodule of lung Obstructive sleep apnea syndrome Overweight Personal history of colonic polyps Pulmonary emphysema Sick sinus syndrome Normal [facility] Physician Referralon 023 Physician Referral [id number]#1.00CD:127 Normal [facility] Office Visit (Cardiology)on 09-18-2022 Follow-up visit Diagnoses/Problems Assessed Aortic stenosis (424.1) (I35.0) Atrial fibrillation (427.31) (I48.91) CAD (coronary artery disease) (414.00) (I25.10) CHB (complete heart block) (426.0) (I44.2) COPD (chronic obstructive pulmonary disease) with emphysema (492.8) (J43.9) Essential hypertension (401.9) (I10) Hyperlipidemia (272.4) (E78.5) S/P placement of cardiac pacemaker (V45.01) (Z95.0) SSS (sick sinus syndrome) (427.81) (I49.5) Overweight with body mass index (BMI) of 27 to 27.9 in adult (278.02,V85.23) (E66.3,Z68.27) Former smoker (V15.82) (Z87.891) Quit 2019 <1 ppd Orders Atrial fibrillation Renew: Eliquis 5 MG Oral Tablet; Take 1 tablet twice daily IO EKG Electrocardiogram- 12 Lead; Status:Complete; Done: 18Sep2022 CAD (coronary artery disease) Start: Aspirin 81 MG Oral Tablet Delayed Release; 1 tab twice weekly CAD (coronary artery disease), Essential hypertension Stop: Aspirin EC 81 MG Oral Tablet Delayed Release Renew: Lisinopril 30 MG Oral Tablet; TAKE 1 TABLET DAILY Essential hypertension Renew: amLODIPine Besylate 10 MG Oral Tablet; TAKE 1 TABLET DAILY Renew: Spironolactone 25 MG Oral Tablet; Take 1 tablet daily Hyperlipidemia Renew: Atorvastatin Calcium 20 MG Oral Tablet; TAKE 1 TABLET AT BEDTIME Overweight with body mass index (BMI) of 27 to 27.9 in adult Healthy Weight Tips; Status:Complete; Done: 18Sep2022 Some eating tips that can help you lose weight.; Status:Complete; Done: 18Sep2022 SocHx: Former smoker Tobacco Use Screening; Status:Complete; Done: 18Sep2022 Patient Instructions Please bring all medicines, vitamins, and herbal supplements with you when you come to the office. Prescriptions will not be filled unless you are compliant with your follow up appointments or have a follow up appointment scheduled as per instruction of your physician. Refills should be requested at the time of your visit. Follow up in 8-9 months Pacemaker/Defibrillator follow up per routine History of Present Illness Patient is added on at my suggestion to discuss a recent pacemaker check. That pacemaker check demonstrated satisfactory device performance but prolonged episodes of atrial fibrillation. The patient was unaware and asymptomatic. We recommended initiation of Eliquis therapy and reduction of aspirin. In regards to his coronary disease he denies angina or anginal equivalent symptomatology. His hypertension and lipids appear to be adequately addressed and he has none of the symptoms of coronary disease that preceded his original diagnosis and subsequent angioplasty and stenting. The patient's aortic valve disease was recently evaluated at the suggestion of another healthcare provider and that echo report from the outside facility is reviewed with the patient and demonstrates normal function and moderate stenosis. Advised him and his he may require aortic valve intervention within several years. For the time being, though, he appears to be stable and asymptomatic in regards to coronary disease heart failure and arrhythmia. Stroke risk will be mitigated with anticoagulant therapy and we will reconvene in several months. As before the merits of weight loss and diet were advocated. Surgical History Problems History of Complete colonoscopy History of Pacemaker insertion History of Percutaneous transluminal coronary angioplasty Current Meds Medication NameInstruction amLODIPine Besylate 10 MG Oral TabletTAKE 1 TABLET DAILY. Aspirin EC 81 MG Oral Tablet Delayed ReleaseTAKE 1 TABLET DAILY. Atorvastatin Calcium 20 MG Oral TabletTAKE 1 TABLET AT BEDTIME Eliquis 5 MG Oral TabletTake 1 tablet twice daily Fish Oil 1000 MG Oral CapsuleTAKE 1 CAPSULE EVERY OTHER DAY Lisinopril 30 MG Oral TabletTAKE 1 TABLET DAILY. Multi Vitamin Daily Oral TabletTAKE 1 TABLET DAILY. Sertraline HCl - 50 MG Oral TabletTAKE 1 TABLET DAILY DIRECTED. Spironolactone 25 MG Oral TabletTake 1 tablet daily Trelegy Ellipta AEPBAs directed. Patient did not bring medication list or bottles. Updated verbally with patient Allergies Medication Ceclor CAPS Hives; Itching; Recorded By: Nessa Echeverria; 10/23/2021 4:58:30 PM Social History Problems Caffeine use (V49.89) (Z78.9) 2 cups coffee in morning Former smoker (V15.82) (Z87.891) Quit 2019 <1 ppd No alcohol use No illicit drug use Review of Systems Constitutional: not feeling tired. Eyes: no eyesight problems. ENT: no hearing loss and no nosebleeds. Cardiovascular: no intermittent leg claudication and as noted in HPI. Respiratory: no chronic cough and no shortness of breath. Gastrointestinal: no change in bowel habits and no blood in stools. Genitourinary: no urinary frequency and no hematuria. Skin: no skin rashes. Neurological: no seizures and no frequent falls. Psychiatric: no depression and not suicidal. All other systems have been reviewed and are negative for complaint. Vitals Vital Signs Recorded: 18Sep2022 02:52PM Hea (more content not included)... [facility] Tobacco Screening.on 023 Adult depression screening assessment No [facility] [employer] [place] [address] DO Work Phone: Fall risk assessment a) No falls within the last year [facility] [employer] [place] [address] DO Work Phone: Tobacco use status CP b) No [facility] [employer] [place] [address] DO Work Phone: ARTERIAL BLOOD GAS,CO-OXon 0 08-13-2022 BASE EXCESS-BLOOD -0.9 mmol/L Normal -2.0 - 3.0 [facility] Comment on above: Performed By: #### A BGC2 #### [facility] [address] [place] [address] BICARB, CALCULATED 22.2 mmol/L Normal 22.0 - 26.0 [facility] Comment on above: Performed By: #### A BGC2 #### [facility] [address] [place] [address] CO HGB 2.0 % Abnormal [facility] Comment on above: Result Comment: REF VALUES NONSMOKERS 0.5-1.5% SMOKERS 0.5-10.0% Performed By: #### A BGC2 #### [facility] [address] [place] [address] DEOXY HGB 3.2 % Normal 0.0 - 5.0 [facility] Comment on above: Performed By: #### A BGC2 #### [facility] [address] [place] [address] Hemoglobin (Bld) [Mass/Vol] 15.0 g/dL Normal 13.5 - 17.5 [facility] Comment on above: Performed By: #### A BGC2 #### [facility] [address] [place] [address] MET HGB 0.9 % Normal 0.0 - 1.5 [facility] Comment on above: Performed By: #### A BGC2 #### [facility] [address] [place] [address] OXY HGB 93.9 % Low 94.0 - 98.0 [facility] Comment on above: Performed By: #### A BGC2 #### [facility] [address] [place] [address] Oxygen (Bld) [Partial pressure] 76 mm[Hg] Low 85 - 95 [facility] Comment on above: Performed By: #### A BGC2 #### [facility] [address] [place] [address] PATIENT TEMPERATURE 37.0 degrees C Normal [facility] Comment on above: Result Comment: NOTE : PATIENT RESULTS ARE NOT CORRECTED FOR TEMPERATURE. Performed By: #### A BGC2 #### [facility] [address] [place] [address] PCO2 32 mmHg Low 38 - 42 [facility] Comment on above: Performed By: #### A BGC2 #### [facility] [address] [place] [address] pH (Bld) 7.45 [pH] High 7.38 - 7.42 [facility] Comment on above: Performed By: #### A BGC2 #### [facility] [address] [place] [address] SO2 97 % Normal 94 - 100 [facility] Comment on above: Performed By: #### A BGC2 #### [facility] [address] [place] [address] CHEST without FOR NAIDA BRONC PLANNINGon 08-13-2022 CT CHEST without FOR NAIDA BRONC PLANNING Patient Name: ALAN HERRERA STUDY: TH CT CHEST WITHOUT FOR NAIDA BRONC PLANNING; 08/13/2022 3:38 pm INDICATION: BVLR J43.9: COPD (chronic obstructive pulmonary disease) with emphysema. COMPARISON: No comparison images were available for review. ACCESSION NUMBER(S): [id number] ORDERING CLINICIAN: FERNY FIGUEROA TECHNIQUE: Using helical multidetector technique, volumetric data acquisition of the chest was obtained without intravenous administration of contrast material under the high resolution chest CT protocol. Examination includes contiguous slices through the chest in supine positioning during inspiration, noncontiguous axial slices in supine positioning during expiration and prone positioning during inspiration. FINDINGS: LUNGS AND AIRWAYS: The trachea and central airways are patent. No endobronchial lesion is seen. There is mild diffuse bronchial wall thickening, which is a non-specific finding, but may be due to chronic bronchitis, given the history of smoking. Severe centrilobular and paraseptal emphysematous changes, most prominent in the superior segment left lower lobe. The bilateral lungs are clear without evidence of focal consolidation, pleural effusion, or pneumothorax. Atelectasis versus scarring is seen in lingula. Nonspecific 3 mm right upper lobe nodule on image 123 and 2 mm left upper lobe nodule on image 170. Perifissural nodule in the left lower lobe on image 187 measuring 2-3 mm which may represent intrapulmonary lymph node. Expiratory imaging demonstrates no evidence of air-trapping. Prone imaging reveals improvement of bibasilar atelectasis and no evidence of pulmonary fibrosis. MEDIASTINUM AND JOEY, LOWER NECK AND AXILLA: The visualized thyroid gland is within normal limits. No evidence of thoracic lymphadenopathy by CT criteria. Esophagus appears within normal limits as seen. HEART AND VESSELS: The thoracic aorta normal in course and caliber.There is moderate calcified atherosclerosis present. Main pulmonary artery and its branches are normal in caliber. Severe three-vessel coronary artery calcifications and stents are noted. Please note,the study is not optimized for evaluation of coronary arteries. The cardiac chambers are not enlarged.There are prominent aortic valve and mitral annular calcifications seen. Correlate with cardiovascular risk factors and patient's symptoms. There is no pericardial effusion seen. UPPER ABDOMEN: The visualized subdiaphragmatic structures demonstrate no remarkable findings. CHEST WALL AND OSSEOUS STRUCTURES: Chest wall is within normal limits. No acute osseous pathology.There are no suspicious osseous lesions.Mild multilevel degenerative changes within visualized spine. IMPRESSION: CT for bronchoscopic navigational purposes. 1. Severe emphysematous changes, worst in the superior segment left lower lobe. 2. Severe coronary artery calcifications and coronary stents are noted. 3. Prominent mitral annular and aortic valve calcifications, please correlate with cardiovascular status. 4. Nonspecific pulmonary nodules as described above measuring up to 3 mm. If patient qualifies for annual screening with low-dose CT chest for lung cancer based on risk factors, recommend continued annual follow-up. I personally reviewed the images/study and I agree with the findings as stated by president of the [place] Elaine Barkley MD. This study was interpreted at [facility], [place], [place]. Electronically signed by: NELDA PORRAS MD Normal [facility] ECHOCARDIO M/2D COMPLETEon 0 08-10-2022 ECHOCARDIO M/2D COMPLETE Patient: ALAN HERRERA Exam Date: 08/10/2022 : 1945 Gender:M Ordering : FERNY FIGUEROA M.D. Admission #: [id number] Family : DR CAESAR GLOVER M.D. Order #: [id number] CLICK HERE TO VIEW EXAM ECHOCARDIOGRAM REPORT PROCEDURE: CARDIO PULMONARY ECHOCARDIO M/2D COMP INDICATIONS: Shortness of breath on exertion, COPD, pacemaker, PTCA, hypertension COMPARISON: None. DESCRIPTION: COMPLETE ECHOCARDIOGRAM Real-time transthoracic echocardiography with 2D, M-mode, spectral and color flow Doppler performed. QUALITY: Technical quality was good. 71 200# BP 158/74 LEFT VENTRICLE: Normal chamber size. Moderate concentric left ventricular hypertrophy. LV EF: Global left ventricular systolic function is normal; visually estimated ejection fraction is 60 to 65%. Cannot comment on regional wall motion abnormalities. DIASTOLIC: Grade I, mild diastolic dysfunction. ATRIAL SEPTUM: Visually appears intact. LEFT ATRIUM: Normal chamber size. RIGHT ATRIUM: Normal chamber size. RIGHT VENTRICLE: Mild dilatation. Normal systolic function. Pacer wire present. TRICUSPID VALVE: Normal mobility and thickness. No stenosis with trivial regurgitation. Doppler studies reveal moderately (45-60) elevated right sided pressures. RVSP 57 mmHg MITRAL VALVE: Normal mobility and thickness. Moderate mitral annular calcification. Mild mitral regurgitation. AORTIC VALVE: Normal trileaflet appearance. Severely calcified aortic valve. Doppler velocity suggests moderate aortic valve stenosis. DVI 0.3, OSWALDO 1.2 cm2. No aortic regurgitation. AORTIC ROOT: Normal diameter and appearance. PULMONIC VALVE: Normal thickness and mobility. No stenosis. Trivial regurgitation. PERICARDIUM: Anterior free space; trivial effusion versus fat pad. IVC: Collapses with inspirations. IVC is normal in size. CONCLUSION: Global left ventricular systolic function is normal; visually estimated ejection fraction is 60 to 65%. Cannot comment on regional wall motion abnormalities. Grade 1 diastolic dysfunction. Moderate left ventricular hypertrophy. The right ventricle is mildly dilated with normal systolic function. Moderately elevated right-sided pressures; RVSP is 57 mmHg. Mild mitral regurgitation. Moderate aortic valve stenosis. Anterior free space; trivial effusion versus fat pad. Adult Echocardiography Procedure Report Left Ventricle LVEDD (3.7 - 5.6 cm): 4.67 cm LVESD (2.2 - 4.0 cm): 3.12 cm LVIVS thickness (0.6 - 1.2 cm): 1.40 cm LVPW thickness (0.5 - 1.0 cm): 1.29 cm e': 0.04 m/s E - e': 18.48 LVOT Max Gradient: 1.81 mm[Hg] Peak Velocity (LVOT): 0.67 m/s Mean Velocity (LVOT): 0.50 m/s LVOT Diameter 2.24 cm Left Ventricular Ejection Fraction: 61.80 %, 61.80 % Left Atrium LA Volume Index (2D A2C): 78.80 ml, 78.80 ml Left Atrium Systolic Dimension: 4.33 cm Mitral Valve MV E to A Ratio: 0.72 Mitral Valve A-Wave Peak Velocity: 1.07 m/s Mitral Valve E-Wave Peak Velocity: 0.77 m/s Right Ventricle Aorta AO Root Diam: 3.33 cm Aortic Valve AoV Area (Peak Feliciano): 1.16 cm2, 1.32 cm2 AoV Area (VTI): 1.17 cm2, 1.33 cm2 Peak Velocity(Antegrade Flow): 2.02 m/s, 2.55 m/s Peak Gradient(Antegrade Flow): 16.26 mm[Hg], 26.07 mm[Hg] Mean Velocity(Antegrade Flow): 1.40 m/s, 1.72 m/s Mean Gradient(Antegrade Flow): 9.16 mm[Hg], 14.25 mm[Hg] Velocity Time Integral: 45.91 cm, 58.26 cm Tricuspid Valve Peak Velocity (Regurgitant Flow): 3.68 m/s Peak Velocity: 0.42 m/s Pulmonic Valve Peak Velocity: 0.89 m/s, 1.15 m/s Peak Gradient: 3.20 mm[Hg], 5.31 mm[Hg] Right Atrium Right Atrium Systolic Pressure: 46.69 ml, 46.69 ml Dictated by: Lilia Lopez M.D. on 08/10/2022 at 13:43 Approved by: Lilia Lopez M.D. on 08/10/2022 at 13:49 Normal [facility] PROF CHEM 8 (BAS METB)on Anion gap [Moles/Vol] 13.2 mmol/L Normal [facility] Comment on above: Performed By: #### B MP #### [facility] [address] [place] [address] Dr. Keya Kuhn Calcium [Mass/Vol] 9.1 mg/dL Normal 8.5-10.1 [facility] Comment on above: Performed By: #### B MP #### [facility] [address] [place] [address] Dr. Keya Kuhn Chloride [Moles/Vol] 108 mmol/L Critically high 98-107 [facility] Comment on above: Performed By: #### B MP #### [facility] [address] [address] [address] Keya Kuhn CO2 [Moles/Vol] 26.6 mmol/L Normal 21.0-32.0 [facility] Comment on above: Performed By: #### B MP #### [facility] [address] [place] [address] [address] Keya Kuhn Creatinine [Mass/Vol] 0.87 mg/dL Normal 0.70-1.30 [facility] Comment on above: Performed By: #### B MP #### [facility] [address] [address] [address] Keya Kuhn EGFR-AF CAMBODIAN >60 Normal >=60 [facility] Comment on above: Performed By: #### B MP #### [facility] [address] [address] [address] Keya Kuhn EGFR-NON AF CAMBODIAN >60 Normal >=60 [facility] Comment on above: Performed By: #### B MP #### [facility] [address] [address] [address] Keya Kuhn Glucose [Mass/Vol] 112 mg/dL Critically high 74-106 [facility] Comment on above: Performed By: #### B MP #### [facility] [address] [address] [address] Keya Kuhn Potassium [Moles/Vol] 3.8 mmol/L Normal 3.5-5.1 [facility] Comment on above: Performed By: #### B MP #### [facility] [address] [address] [address] Keya Kuhn Sodium [Moles/Vol] 144 mmol/L Normal 136-145 [facility] Comment on above: Performed By: #### B MP #### [facility] [address] [address] [address] Keya Kuhn Urea nitrogen [Mass/Vol] 17.0 mg/dL Normal 7.0-18.0 [facility] Comment on above: Performed By: #### B MP #### [facility] [address] [address] [address] Keya Kuhn Urea nitrogen/Creatinine [Mass ratio] 19.5 mg/mg Normal [facility] Comment on above: Performed By: #### B MP #### [facility] [address] [address] [address] Keya Kuhn LIPID PROFILEon 07-02-2022 CHOL-HDL RATIO NORM SEE BELOW Normal [facility] Comment on above: Result Comment: 3.3 - 4.4 LOW RISK 4.4 - 7.1 AVERAGE RISK 7.1 - 11.0 MODERATE RISK >11.0 HIGH RISK Performed By: #### L IPID, AST, BMP, ALT #### [facility] [address] [address] [address] Keya Kuhn Cholesterol [Mass/Vol] 112 mg/dL Normal <=200 [facility] Comment on above: Performed By: #### L IPID, AST, BMP, ALT #### [facility] [address] [address] [address] Keya Kuhn Cholesterol in HDL [Mass/Vol] 43 mg/dL Normal 40-60 [facility] Comment on above: Performed By: #### L IPID, AST, BMP, ALT #### [facility] [address] [address] [address] Keya Kuhn Cholesterol in LDL [Mass/Vol] 56.0 mg/dL Normal [facility] Comment on above: Performed By: #### L IPID, AST, BMP, ALT #### [facility] [address] [address] [address] Keya Kuhn Cholesterol.total/Ch olesterol in HDL [Mass ratio] 2.6 {ratio} Normal [facility] Comment on above: Performed By: #### L IPID, AST, BMP, ALT #### [facility] [address] [address] [address] Keya Kuhn HDL NORMAL > or = 60 mg/dl - LO W CARDIOVASCULAR RISK <40 mg/dl - HIGH CARDIOVASCULAR RISK Normal [facility] Comment on above: Performed By: #### L IPID, AST, BMP, ALT #### [facility] [address] [address] [address] Keya Kuhn LDL CALC NORMAL SEE BELOW Normal [facility] Comment on above: Result Comment: <100 mg/dl OPTIMAL 100 - 129 mg/dl NEAR OR ABOVE OPTIMAL 130 - 159 mg/dl BORDERLINE HIGH 160 - 189 mg/dl HIGH >190 mg/dl VERY HIGH Performed By: #### L IPID, AST, BMP, ALT #### [facility] [address] [address] [address] Keya Kuhn Triglyceride [Mass/Vol] 65 mg/dL Normal <=150 [facility] Comment on above: Performed By: #### L IPID, AST, BMP, ALT #### [facility] [address] [address] [address] Keya Kuhn VLDL CALC 13.0 mg/dL Normal [facility] Comment on above: Performed By: #### L IPID, AST, BMP, ALT #### [facility] [address] [address] [address] Keya Kuhn PROF CHEM 8 (BAS METB)on Anion gap [Moles/Vol] 11.5 mmol/L Normal [facility] Comment on above: Performed By: #### L IPID, AST, BMP, ALT #### [facility] [address] [place] [address] Dr. Keya Kuhn Calcium [Mass/Vol] 9.0 mg/dL Normal 8.5-10.1 [facility] Comment on above: Performed By: #### L IPID, AST, BMP, ALT #### [facility] [address] [address] [address] Keya Kuhn Chloride [Moles/Vol] 104 mmol/L Normal 98-107 [facility] Comment on above: Performed By: #### L IPID, AST, BMP, ALT #### [facility] [address] [place] [address] Dr. Keya Kuhn CO2 [Moles/Vol] 29.6 mmol/L Normal 21.0-32.0 [facility] Comment on above: Performed By: #### L IPID, AST, BMP, ALT #### [facility] [address] [place] [address] Dr. Keya Kuhn Creatinine [Mass/Vol] 0.82 mg/dL Normal 0.70-1.30 [facility] Comment on above: Performed By: #### L IPID, AST, BMP, ALT #### [facility] [address] [place] [address] Dr. Keya Kuhn EGFR-AF CAMBODIAN >60 Normal >=60 [facility] Comment on above: Performed By: #### L IPID, AST, BMP, ALT #### [facility] [address] [address] [address] Keya Kuhn EGFR-NON AF CAMBODIAN >60 Normal >=60 [facility] Comment on above: Performed By: #### L IPID, AST, BMP, ALT #### [facility] [address] [address] [address] Keya Kuhn Glucose [Mass/Vol] 118 mg/dL Critically high 74-106 [facility] Comment on above: Performed By: #### L IPID, AST, BMP, ALT #### [facility] [address] [address] [address] Keya Kuhn Potassium [Moles/Vol] 3.1 mmol/L Critically low 3.5-5.1 [facility] Comment on above: Performed By: #### L IPID, AST, BMP, ALT #### [facility] [address] [address] [address] Keya Kuhn Sodium [Moles/Vol] 142 mmol/L Normal 136-145 [facility] Comment on above: Performed By: #### L IPID, AST, BMP, ALT #### [facility] [address] [address] [address] Keya Kuhn Urea nitrogen [Mass/Vol] 14.0 mg/dL Normal 7.0-18.0 [facility] Comment on above: Performed By: #### L IPID, AST, BMP, ALT #### [facility] [address] [address] [address] Keya Kuhn Urea nitrogen/Creatinine [Mass ratio] 17.1 mg/mg Normal [facility] Comment on above: Performed By: #### L IPID, AST, BMP, ALT #### [facility] [address] [address] [address] Keya Jensen 07-02-2022 AST [Catalytic activity/Vol] 22 U/L Normal 15-37 [facility] Comment on above: Performed By: #### L IPID, AST, BMP, ALT #### [facility] [address] [place] [address] Dr. Keya Call 07-02-2022 ALT [Catalytic activity/Vol] 21 U/L Normal 16-63 [facility] Comment on above: Performed By: #### L IPID, AST, BMP, ALT #### [facility] [address] [place], [place] [address] Dr. Keya Kuhn Office Visit (Cardiology)on 06-18-2022 Follow-up visit Diagnoses/Problems Assessed CAD (coronary artery disease) (414.00) (I25.10) CHB (complete heart block) (426.0) (I44.2) Second degree AV block, Mobitz type II (426.12) (I44.1) SSS (sick sinus syndrome) (427.81) (I49.5) S/P placement of cardiac pacemaker (V45.01) (Z95.0) Aortic stenosis (424.1) (I35.0) Essential hypertension (401.9) (I10) Hyperlipidemia (272.4) (E78.5) Overweight with body mass index (BMI) of 27 to 27.9 in adult (278.02,V85.23) (E66.3,Z68.27) Bruit of right carotid artery (785.9) (R09.89) Orders CAD (coronary artery disease), Essential hypertension, Hyperlipidemia ALT - Alanine Aminotransferase, Serum; Status:Active - Retrospective Authorization; Requested for:[id number]; AST; Status:Active - Retrospective Authorization; Requested for:18Jun2022; Basic Metabolic Panel; Status:Active - Retrospective Authorization; Requested for:18Jun2022; Lipid Panel; Status:Active - Retrospective Authorization; Requested for:18Jun2022; Hyperlipidemia Renew: Atorvastatin Calcium 20 MG Oral Tablet; TAKE 1 TABLET AT BEDTIME Overweight with body mass index (BMI) of 27 to 27.9 in adult Healthy Weight Tips; Status:Complete - Retrospective Authorization; Done: 18Jun2022 Some eating tips that can help you lose weight.; Status:Complete - Retrospective Authorization; Done: 18Jun2022 SocHx: Former smoker Tobacco Use Screening; Status:Complete; Done: 18Jun2022 Patient Instructions Please bring all medicines, vitamins, and herbal supplements with you when you come to the office. Prescriptions will not be filled unless you are compliant with your follow up appointments or have a follow up appointment scheduled as per instruction of your physician. Refills should be requested at the time of your visit. device checks Follow up in 6 months The provider reviewed the following test(s) and result(s) with the patient: laboratory tests, Myocardial perfusion study and carotid US Chief Complaint results. History of Present Illness Returns in follow-up of problems as noted. He is doing well. I cannot elicit any angina CHF or arrhythmia symptomatology. Recent pacemaker checks demonstrate satisfactory device performance and the device is obviously mitigated the previously observed sick sinus syndrome and complete heart block. He has no symptoms of coronary disease based upon our review and consequently we believe he is stable in this regard. Previous carotid ultrasonography demonstrates stable disease and because of this no intervention or angiographic evaluation appears necessary at this time. His aortic valve disease is also stable and his murmur is soft suggesting only mild to moderate stenosis. Surgical History Problems History of Complete colonoscopy History of Pacemaker insertion History of Percutaneous transluminal coronary angioplasty Current Meds Medication NameInstruction amLODIPine Besylate 10 MG Oral TabletTAKE 1 TABLET DAILY. Aspirin EC 81 MG Oral Tablet Delayed ReleaseTAKE 1 TABLET DAILY. Atorvastatin Calcium 20 MG Oral TabletTAKE 1 TABLET AT BEDTIME Fish Oil 1000 MG Oral CapsuleTAKE 1 CAPSULE EVERY OTHER DAY hydroCHLOROthiazide 25 MG Oral TabletTAKE 1 TABLET DAILY. Lisinopril 30 MG Oral TabletTAKE 1 TABLET DAILY. Multi Vitamin Daily Oral TabletTAKE 1 TABLET DAILY. Sertraline HCl - 50 MG Oral TabletTAKE 1 TABLET DAILY DIRECTED. Trelegy Ellipta AEPBAs directed. Allergies Medication Ceclor CAPS Hives; Itching; Recorded By: Nessa Echeverria; 10/23/2021 4:58:30 PM Social History Problems Caffeine use (V49.89) (Z78.9) 2 cups coffee in morning Former smoker (V15.82) (Z87.891) Quit 2019 <1 ppd No alcohol use No illicit drug use Review of Systems Constitutional: not feeling tired. Eyes: no eyesight problems. ENT: no hearing loss and no nosebleeds. Cardiovascular: no intermittent leg claudication and as noted in HPI. Respiratory: no chronic cough and no shortness of breath. Gastrointestinal: no change in bowel habits and no blood in stools. Genitourinary: no urinary frequency and no hematuria. Skin: no skin rashes. Neurological: no seizures and no frequent falls. Psychiatric: no depression and not suicidal. All other systems have been reviewed and are negative for complaint. Vitals Vital Signs Recorded: 18Jun2022 12:59PM Heart Rate68, L Radial Ilgwjnht891, LUE, Sitting Xxgtgfitf28, LUE, Sitting Height5 ft 11 in Orpdee892 lb BMI Kidumokmnp65.2 kg/m2 BSA Calculated2.09 Tobacco Useb) No Falls Screening (Age 18+)a) No falls within the last year Physical Exam Constitutional: alert and in no acute distress. Eyes: no erythema, swelling or discharge from the eye . Neck: neck is supple, symmetric, trachea midline, no masses and no thyromegaly . Pulmonary: no increased work of breathing or signs of respiratory distress and lungs clear to auscultation. Cardiovascular: carotid pulses 2+ bilaterally with no bruit , JVP was normal, no thrills , regular r (more content not included)... Normal [facility] Tobacco Screening.on 022 Fall risk assessment a) No falls within the last year -[facility] [employer] [address] DO Work Phone: Tobacco use status [facility] b) No -[facility] [employer] [place] [address] DO Work Phone: VASC LAB Carotid Artery Dupl ex Ultrasounon 05-07-2022 VAS LAB Carotid Artery Duplex Ultrasoun [address], [place] [address] Vascular Lab Report Carotid Artery Duplex Ultrasound Patient Name: ALAN Lange Physician: [id number] Danilo Paniagua MD, HERRERA [facility] Study Date: 05/07/2022 Referring ANGEL BEATNCOURT Physician: MRN/PID: [id number] PCP: Caesar Glover Accession/Order#: [id number] CC Report to: Date of : 1945 Technologist: Dee Corey RDCS, Josué Gender: M Technologist 2: Admission Status: Outpatient Location Performed: [facility] Diagnosis/ICD: R09.89-Other specified symptoms and signs involving the circulatory and respiratory systems Indication: HTN, Hyperlipidemia, Former Smoker, CAD, Complete Heart Block, Sick Sinus Syndrome, Pacemaker, Aortic Stenosis, COPD-on O2 at 2l Procedure/CPT: 19568 Cerebrovascular Carotid Duplex scan complete-10441 CONCLUSIONS: Right Carotid: Findings are consistent with less than 50% stenosis of the right proximal ICA. Laminar flow seen by color Doppler. Right external carotid artery appears patent with no evidence of stenosis. No evidence of hemodynamically significant stenosis of the right common carotid artery. The right vertebral artery is patent with antegrade flow. Left Carotid: Findings are consistent with less than 50% stenosis of the left proximal ICA. Laminar flow seen by color Doppler. Left external carotid artery appears patent with no evidence of stenosis. No evidence of hemodynamically significant stenosis of the left common carotid artery. The left vertebral artery is patent with antegrade flow. Imaging AND Doppler Findings: Right Plaque Morph: The distal right common carotid artery demonstrates heterogenous, irregular and calcified plaque. Right Left PSV EDV PSV EDV 65 cm/s 13 cm/s CCA P 56 cm/s 17 cm/s 57 cm/s 16 cm/s CCA M 52 cm/s 15 cm/s 41 cm/s 11 cm/s CCA D 32 cm/s 12 cm/s 35 cm/s 13 cm/s ICA P 29 cm/s 11 cm/s 58 cm/s 16 cm/s ICA M 40 cm/s 13 cm/s 60 cm/s 25 cm/s ICA D 52 cm/s 20 cm/s 111 cm/s ECA 88 cm/s 24 cm/s Vertebral 31 cm/s Right Left ICA/CCA Ratio 0.8 0.9 [id number] Danilo Paniagua MD, FACC Final Normal [facility] VASC LAB Carotid Artery Dupl ex Ultrasoundon 05-07-2022 US.doppler Carotid arteries Please click on the link to view the study images [facility] Work Phone: US.doppler Carotid arteries -[facility] 600 DO Work Phone: Office Visit (Cardiology)on 04-06-2022 Follow-up visit Diagnoses/Problems Assessed CAD (coronary artery disease) (414.00) (I25.10) CHB (complete heart block) (426.0) (I44.2) S/P placement of cardiac pacemaker (V45.01) (Z95.0) SSS (sick sinus syndrome) (427.81) (I49.5) Aortic stenosis (424.1) (I35.0) Bruit of right carotid artery (785.9) (R09.89) Essential hypertension (401.9) (I10) Hyperlipidemia (272.4) (E78.5) Second degree AV block, Mobitz type II (426.12) (I44.1) Overweight with body mass index (BMI) of 28 to 28.9 in adult (278.02,V85.24) (E66.3,Z68.28) Orders Bruit of right carotid artery [facility] LAB Carotid Artery Duplex Ultrasound; Status:Hold For - Scheduling,Retrospective By Protocol Authorization; Requested for:[id number]; Laterality : Bilateral Essential hypertension Renew: amLODIPine Besylate 10 MG Oral Tablet; TAKE 1 TABLET DAILY Overweight with body mass index (BMI) of 28 to 28.9 in adult Healthy Weight Tips; Status:Complete - Retrospective Authorization; Done: [id number] Some eating tips that can help you lose weight.; Status:Complete - Retrospective Authorization; Done: [id number] Patient Instructions Please bring all medicines, vitamins, and herbal supplements with you when you come to the office. Prescriptions will not be filled unless you are compliant with your follow up appointments or have a follow up appointment scheduled as per instruction of your physician. Refills should be requested at the time of your visit. Follow up after testing Chief Complaint ALAN HERRERA is being seen for Results. History of Present Illness Patient returns in follow-up of problems as noted. In the interim he underwent stress testing because of his concerns regarding progressive coronary disease. His stress test proved to be normal and he was provided education and reassurance. He is, though, noted to be hypertensive. He stopped taking his amlodipine for no good reason. Because of this I recommend he resume it and come back for the blood pressure check in the near future. The paramount importance of good risk factor management and control was emphasized and he begrudgingly agrees to resume the medicine On exam today I noticed a carotid bruit on the right side. Because of this I recommended carotid ultrasound. We reviewed with him his lab results as well as recent pacemaker checks demonstrating underlying complete heart block but satisfactory device performance and no breakthrough arrhythmias. Because of all the above we suggest continued therapy as is but the reinitiation of amlodipine. He will follow-up after carotid ultrasonography is performed we will provide guidance regarding carotid disease management. Surgical History Problems History of Complete colonoscopy History of Pacemaker insertion History of Percutaneous transluminal coronary angioplasty Current Meds Medication NameInstruction Aspirin EC 81 MG Oral Tablet Delayed ReleaseTAKE 1 TABLET DAILY. Atorvastatin Calcium 20 MG Oral TabletTAKE 1 TABLET AT BEDTIME Fish Oil 1000 MG Oral CapsuleTAKE 1 CAPSULE EVERY OTHER DAY hydroCHLOROthiazide 25 MG Oral TabletTAKE 1 TABLET DAILY. Lisinopril 30 MG Oral TabletTAKE 1 TABLET DAILY. Multi Vitamin Daily Oral TabletTAKE 1 TABLET DAILY. Sertraline HCl - 50 MG Oral TabletTAKE 1 TABLET DAILY DIRECTED. Trelegy Ellipta AEPBAs directed. Allergies Medication Ceclor CAPS Hives; Itching; Recorded By: Nessa Echeverria; 10/23/2021 4:58:30 PM Social History Problems Daily caffeine consumption, 2-3 servings a day Former smoker (V15.82) (Z87.891) No alcohol use No illicit drug use Review of Systems Constitutional: not feeling tired. Eyes: no eyesight problems. ENT: no hearing loss and no nosebleeds. Cardiovascular: no intermittent leg claudication and as noted in HPI. Respiratory: no chronic cough and no shortness of breath. Gastrointestinal: no change in bowel habits and no blood in stools. Genitourinary: no urinary frequency and no hematuria. Skin: no skin rashes. Neurological: no seizures and no frequent falls. Psychiatric: no depression and not suicidal. All other systems have been reviewed and are negative for complaint. Vitals Vital Signs Recorded: [id number] 08:55AM Heart Rate80, L Radial Tdzfstdb227, LUE, Sitting Pnowclfma69, LUE, Sitting Height5 ft 11 in Qwrqid993 lb BMI Rrgicggcfl11.03 kg/m2 BSA Calculated2.11 Tobacco Useb) No Falls Screening (Age 18+)a) No falls within the last year Physical Exam Constitutional: alert and in no acute distress. Eyes: no erythema, swelling or discharge from the eye . Neck: neck is supple, symmetric, trachea midline, no masses and no thyromegaly . Pulmonary: no increased work of breathing or signs of respiratory distress and lungs clear to auscultation. Cardiovascular: carotid pulses 2+ bilaterally with no bruit , JVP was normal, no thrills , regular rhythm, normal S1 and S2, no murmurs , pedal pulses 2+ bilaterally and no edema . Abdomen: abdomen non-tender, no mass (more content not included)... [facility] Tobacco Screening.on 022 Fall risk assessment a) No falls within the last year [facility] [facility] [address] DO Work Phone: Tobacco use status CPHS b) No -[facility] [address] DO Work Phone: [facility] CARDIAC STRESS/REST INJE CTIONon 03-04-2022 [facility] CARDIAC STRESS/REST INJECTION Patient Name: ALAN HERRERA STUDY: MYOCARDIAL PERFUSION STRESS TEST WITH LEXISCAN Performing facility: [facility], [address] [place] [address], [address] [address] [facility] Provider: Mignon Betancourt MD, FACC PCP: Dr. Sukhjinder Glover Supervising provider: Danilo Paniagua MD, FACC INDICATION: Angina CAD; HISTORY: Gender: M; Age: 76 y/o ; Height: 180.34 cm; Weight: 91.4252233 kg. CAD; High Cholesterol; HTN; PPM Chest Pain; SOB; Quit smoking unknown years ago. Cardiac catheterization on 2014. PTCA on 2014. COMPARISON: Previous nuclear testing completed [id number] at [facility]. ACCESSION NUMBER(S): [id number]; [id number]; [id number] ORDERING CLINICIAN: ANGEL BETANCOURT TECHNIQUE: ONE DAY protocol. Stress injection: Date:03-04-22, 34.4 mCi of Myoview IV 20 seconds after rapid injection of Lexiscan. Rest injection: Date: 03-04-22, 10.8 mCi of Myoview IV at rest. The patient had a rapid injection of 0.4 mg of Lexiscan IV over 10 seconds. Imaging was performed by gated tomographic technique. Reason for Lexiscan: SOB STRESS TEST DATA: Resting heart rate was 69 BPM. Resting blood pressure was 126/78 mmHg. Peak blood pressure was 128/80 mmHg. Peak heart rate was 98 BPM. TEST TERMINATED DUE TO: Protocol completed FINDINGS: STRESS TEST RESULTS: Resting electrocardiogram revealed normal sinus rhythm with left bundle branch block. In the presence of left bundle branch block ischemic EKG changes cannot be interpreted, no significant dysrhythmias were induced by Lexiscan administration. The patient did not have chest pains/symptoms during procedure. There was a normal recovery phase. IMAGING RESULTS: Image quality was good. Rest and stress tomographic images were reviewed and revealed normal perfusion without evidence of ischemia, myocardial infarction, or left ventricular dilatation with stress. Overall left ventricular systolic function appeared to be normal without regional wall motion abnormalities. Ejection fraction was 52%. TID is 1.11 and is normal. There 1 evidence of diaphragmatic attenuation artifact. IMPRESSION: Normal Lexiscan Myoview cardiac perfusion stress test. No evidence of ischemia or myocardial infarction by perfusion imaging. Normal left ventricular systolic function, ejection fraction 52%. When compared to a study from 2012 left bundle branch block is noted on current study, the studies are comparable from the perfusion standpoint. Electronically signed by: DANILO PANIAGUA MD Normal [facility] No Panel Informationon 03-04 Normal -[facility] [address] [place] Work Phone: Office Visit (Cardiology)on 03-03-2022 Follow-up visit Diagnoses/Problems Assessed SSS (sick sinus syndrome) (427.81) (I49.5) Hyperlipidemia (272.4) (E78.5) Essential hypertension (401.9) (I10) CHB (complete heart block) (426.0) (I44.2) CAD (coronary artery disease) (414.00) (I25.10) Aortic stenosis (424.1) (I35.0) S/P placement of cardiac pacemaker (V45.01) (Z95.0) Second degree AV block, Mobitz type II (426.12) (I44.1) Difficulty breathing (786.09) (R06.89) Chest pain (786.50) (R07.9) Overweight with body mass index (BMI) of 28 to 28.9 in adult (278.02,V85.24) (E66.3,Z68.28) Former smoker (V15.82) (Z87.891) Orders Angina pectoris, CAD (coronary artery disease) NM Cardiac Stress/Rest Nuclear Med Order; Status:Hold For - Scheduling; Requested for:[id number]; Radiologist to Determine Optimal Study : Y What are the patient's signs and symptoms? : SOB, angina Hyperlipidemia Stop: Pravastatin Sodium 40 MG Oral Tablet Start: Atorvastatin Calcium 20 MG Oral Tablet; TAKE 1 TABLET AT BEDTIME Overweight with body mass index (BMI) of 28 to 28.9 in adult Healthy Weight Tips; Status:Complete; Done: [id number] Some eating tips that can help you lose weight.; Status:Complete; Done: [id number] SocHx: Former smoker Tobacco Use Screening; Status:Complete; Done: [id number] Patient Instructions Please bring all medicines, vitamins, and herbal supplements with you when you come to the office. Prescriptions will not be filled unless you are compliant with your follow up appointments or have a follow up appointment scheduled as per instruction of your physician. Refills should be requested at the time of your visit. Follow up after testing completed History of Present Illness Patient returns following recent pacemaker generator change. He did well and healed up fine. Post implant device check was satisfactory. Control of risk factors including his lipids and hypertension are reviewed and they are well controlled. He does have aortic valve disease but the stenosis is not bad enough that any intervention is necessary. He does, though, complained of some chest pain. He is worried about progression of disease. He reminds me that he had a tight LAD but also moderate disease in the right coronary and circumflex and it was me years ago and because of this and his symptomatology he is concerned. Ultimately we agreed to perform stress test with isotope imaging. He is not able to walk on a treadmill and in fact he has a left bundle branch block caused by his pacemaker and this makes treadmill testing of no utility. Because of this pharmacologic stress testing with isotope imaging will be undertaken if abnormalities are identified we will recommend angiographic evaluation. In the meantime we did advocate the merits of diet exercise and weight loss. Surgical History Problems History of Complete colonoscopy History of Pacemaker insertion History of Percutaneous transluminal coronary angioplasty Current Meds Medication NameInstruction amLODIPine Besylate 10 MG Oral TabletTAKE 1 TABLET DAILY. Aspirin EC 81 MG Oral Tablet Delayed ReleaseTAKE 1 TABLET DAILY. Fish Oil 1000 MG Oral CapsuleTAKE 1 CAPSULE EVERY OTHER DAY hydroCHLOROthiazide 25 MG Oral TabletTAKE 1 TABLET DAILY. Lisinopril 30 MG Oral TabletTAKE 1 TABLET DAILY. Multi Vitamin Daily Oral TabletTAKE 1 TABLET DAILY. Pravastatin Sodium 40 MG Oral TabletTAKE 1 TABLET DAILY. Sertraline HCl - 50 MG Oral TabletTAKE 1 TABLET DAILY DIRECTED. Allergies Medication Ceclor CAPS Hives; Itching; Recorded By: Nessa Echeverria; 10/23/2021 4:58:30 PM Social History Problems Daily caffeine consumption, 2-3 servings a day Former smoker (V15.82) (Z87.891) No alcohol use No illicit drug use Review of Systems Constitutional: not feeling tired. Cardiovascular: no intermittent leg claudication and as noted in HPI. Respiratory: no cough and no shortness of breath. Gastrointestinal: no change in bowel habits and no blood in stools. Integumentary: no skin rashes. Neurological: no seizures and no frequent falls. All other systems have been reviewed and are negative for complaint. Vitals Vital Signs Recorded: [id number] 09:34AM Heart Rate60, L Radial Fvejxcyb684, LUE, Sitting Hlgauvgcz92, LUE, Sitting Height5 ft 11 in Ytwety486 lb BMI Uerznzqiny43.17 kg/m2 BSA Calculated2.12 Tobacco Useb) No PHQ-2 #1. Over the last 2 weeks have you felt down, depressed or hopeless? (If yes, answer PHQ-9 below)No PHQ-2 #2. Over the last 2 weeks have you felt little interest or pleasure in doing things? (If yes, answer PHQ-9 below)No Falls Screening (Age 18+)a) No falls within the last year Physical Exam Constitutional: alert and in no acute distress. Eyes: no erythema, swelling or discharge from the eye . Neck: neck is supple, symmetric, trachea midline, no masses and no thyromegaly . Pulmonary: no increased work of breathing or signs of respiratory distress and lungs clear to auscultation. Cardiovascular: carotid pulse (more content not included)... [facility] Tobacco Screening.on 022 Adult depression screening assessment No [facility] 250 DO Work Phone: Fall risk assessment a) No falls within the last year [facility] [place] 250 DO Work Phone: Tobacco use status CPHS b) No [facility] [place] [address] DO Work Phone: CT LUNG CANCER SCREENINGon 0 02-03-2022 CT LUNG CANCER SCREENING EXAMINATION: CT LUNG CANCER SCREENING HISTORY: Nicotine dependence COMPARISON: CT lung cancer screening 02/07/2021, 01/15/2020, 07/18/2019 TECHNIQUE: Axial, Coronal, and Sagittal images were created without the administration of IV contrast material. Dose reduction techniques were achieved by using automated exposure control and/or adjustment of mA and/or kV according to patient size and/or use of iterative reconstruction technique. FINDINGS: LUNGS: Stable 2.1 x 1.0 cm nodule versus scarring within the lingula extending between the diaphragm and lateral chest wall. Moderate-marked emphysematous changes bilaterally. PLEURA: No mass, effusion, or pneumothorax. VASCULATURE: No abnormality. JOEY: No mass or pathologic adenopathy. MEDIASTINUM: No mass or pathologic adenopathy. CARDIAC: Marked atherosclerotic coronary artery disease. Cardiac pacer. AORTA: No aneurysm or dissection. CHEST WALL: No mass or axillary adenopathy BONES: No bone lesion or fracture. LIMITED ABDOMEN: No suspicious findings. Limited images of the upper abdomen. OTHER: Negative. IMPRESSION: 1. LUNG SCREENING: Lung-RADS Category 2- Benign Appearance or Behavior. Nodules with a very low likelihood of becoming a clinically active cancer due to size or lack of growth. 2. Continue annual screening with LDCT in 12 months. 2. Moderate-marked emphysematous changes. Electronically authenticated by: OSIRIS JIMENEZ Date: 2022-02-03 13:27 Normal [facility] HEMOGLOBINon 12-23-2021 Hemoglobin (Bld) [Mass/Vol] 14.7 g/dL Normal 14.0-18.0 [facility] Comment on above: Performed By: #### H GB #### [facility] [address] [place], [place] [id number] Dr. Keya Kuhn PULMONARY FUNCTION TESTon PULMONARY FUNCTION TEST The [place], [place] NAME: EHRRERAALAN DATE OF : MEDICAL REC#: [id number] HRIS COORDINATOR: 1602 [facility], TRANSADMIT DATE: 12/23/2021 08:58:00 DRAFTER GEOPHYSICAL DATE: 12/24/2021 03:00 DICTATING PHYSICIAN: STALIN ONOFRE DICTATION DATE: 12/23/2021 16:00 PULMONARY FUNCTION TEST SIX MINUTE WALK STUDY DATE OF STUDY: 12/23/2021 INDICATIONS: Central lobular emphysema. Six minute walk study was initiated according to the standard protocol. On room air, blood pressure was 125/70, heart rate 75 and saturation was 95%. Patient ambulated a total of six minutes for a distance of 243.8 meters. At 4 minutes, patient desaturated to 87% on room air with heart of 113. There was a brief stop while oxygen was applied. Patient required 2 liters O2 to achieve a saturation of 93% with heart rate of 100 at 6 minutes into walk. Recovery saturation was 95% on 2 liters per minute with heart rate 78 and blood pressure of 140/80. IMPRESSIONS: Ambulatory desaturations on room air to 87%, requiring 2 liters O2 per minute to recover greater than 89%. Mild/moderate decrease in walk distance at 69% predicted. RECOMMENDATIONS: 2 liters per minute of O2 during ambulation/activity. Clinical correlation required. Electronically Authenticated and Edited by: Stalin Onofre DO on 12/24/2021 11:07 AM EDT IFC Signed and Approved by: STALIN ONOFRE . 12/24/2021 11:07:00 Normal [facility] Activated partial thrombopla stin time (aPTT) in platelet poor plasma by coagulation aOrdered By: Angel Betancourt on 11-06-2021 aPTT Coag (PPP) [Time] 34.6 s 25.1-36.5 [facility] Laboratory - CoagulationOrde red By: Angel Betancourt on 11-06-2021 PT Coag (PPP) [Time] 12.8 s 9.0-12.9 [facility] No Panel Informationon 11-06 1.1\S\1.1 Normal -[facility] [address] DO Work Phone: Comment on above: INR Therapeutic Rang e A) Pre- and Peroperative OAT started two weeks before surgery. NOT HIP SURGERY: 1.5 - 2.5 HIP SURGERY: 2 - 3 B) Primary and secondary prevention of venous THROMBOSIS: 2 - 3 C) Active venous thrombosis, pulmonary embolism and prevention of recurrent venous thrombosis: 2 - 3 D) Prevention of arterial thromboembolism including patients with mechanical heart valves: 3 - 4.5 12.8\S\12.8 Normal 9.0-12.9 [facility] [place] 250 DO Work Phone: 34.6\S\34.6 Normal 25.1-36.5 [facility] [place] 250 DO Work Phone: Comment on above: PERFORMED BY:[facility] [place], [place] [phone] MEDICAL DIRECTORROSCOE LEMUS M.D. Platelet poor plasma interna tional normalized ratio (INR) by coagulation assay (relatOrdered By: Angel Betancourt on 11-06-2021 INR Coag (PPP) [Relative time] 1.1 {INR} [facility] Comment on above: INR Therapeutic Rang e A) Pre- and Peroperative OAT started two weeks before surgery. NOT HIP SURGERY: 1.5 - 2.5 HIP SURGERY: 2 - 3B) Primary and secondary prevention of venous THROMBOSIS: 2 - 3C) Active venous thrombosis, pulmonary embolismand prevention of recurrent venous thrombosis: 2 - 3D) Prevention of arterial thromboembolismincluding patients with mechanical heart valves: 3 - 4.5 INR Therapeutic Rang e A) Pre- and Peroperative OAT started two weeks before surgery. NOT HIP SURGERY: 1.5 - 2.5 HIP SURGERY: 2 - 3 B) Primary and secondary prevention of venous THROMBOSIS: 2 - 3 C) Active venous thrombosis, pulmonary embolism and prevention of recurrent venous thrombosis: 2 - 3 D) Prevention of arterial thromboembolism including patients with mechanical heart valves: 3 - 4.5 Radiologyon 11-06-2021 Portable XR Chest Views Normal [facility] 250 DO Work Phone: [phone] XR Chest 2 Views Normal [facility] 250 DO Work Phone: COVID-19 Positive/NegativeOr dered By: Angel Betancourt on 11-04-2021 SARS-CoV-2 (COVID-19) N gene OG+probe Ql (Resp) Negative Negative [facility] Comment on above: Testing for SARS-CoV -2 by RT-PCRThis test was developed and its performance characteristics determined by [employer] ([employer]) and validated at the [facility]. This test has not been FDA cleared or approved. This test has been authorized by FDA under an Emergency Use Authorization (EUA). This test has been validated in accordance with the FDA's Guidance Document (Policy for Diagnostics Testing in Laboratories Certified to Perform High Complexity Testing under CLIA prior to Emergency Use Authorization for Coronavirus Disease-2019 during the Public Health Emergency) issued on October 19, 2019. This test is only authorized for the duration of time the declaration that circumstances exist justifying the authorization of the emergency use of in vitro diagnostic tests for detection of SARS-CoV-2 virus and/or diagnosis of COVID-19 infection under section 564(b)(1) of the Act, 21 U.S.C. 360bbb-3(b)(1), unless the authorization is terminated or revoked sooner. Testing for SARS-CoV -2 by RT-PCR This test was developed and its performance characteristics determined by [employer] ([employer]) and validated at the [facility]. This test has not been FDA cleared or approved. This test has been authorized by FDA under an Emergency Use Authorization (EUA). This test has been validated in accordance with the FDA's Guidance Document (Policy for Diagnostics Testing in Laboratories Certified to Perform High Complexity Testing under CLIA prior to Emergency Use Authorization for Coronavirus Disease-2019 during the Public Health Emergency) issued on October 19, 2019. This test is only authorized for the duration of time the declaration that circumstances exist justifying the authorization of the emergency use of in vitro diagnostic tests for detection of SARS-CoV-2 virus and/or diagnosis of COVID-19 infection under section 564(b)(1) of the Act, 21 U.S.C. 360bbb-3(b)(1), unless the authorization is terminated or revoked sooner. Basophils Auto (Bld) [#/Vol] Ordered By: Angel Betancourt on 10-29-2021 Basophils (Bld) [#/Vol] 0.0 10*3/uL 0.0-0.2 [facility] Basophils/100 WBC Auto (Bld) Ordered By: Angel Betancourt on 10-29-2021 Basophils/100 WBC (Bld) 0.6 % [facility] Blood hemoglobin measurement (mass/volume)Ordered By: Angel Betancourt on 10-29-2021 Hemoglobin (Bld) [Mass/Vol] 14.9 g/dL 13.0-17.0 [facility] Blood leukocytes automated c ount (number/volume)Ordered By: Angel Betancourt on 10-29-2021 WBC (Bld) [#/Vol] 7.6 10*3/uL 4.5-11.0 [facility] Creatinine and Glomerular fi ltration rate.predicted panel (S/P/Bld)Ordered By: Angel Betancourt on 10-29-2021 Creatinine [Mass/Vol] 0.83 mg/dL 0.64-1.27 [facility] Eosinophils Auto (Bld) [#/Vo l]Ordered By: Angel Betancourt on 10-29-2021 Eosinophils (Bld) [#/Vol] 0.2 10*3/uL 0.0-0.45 [facility] Eosinophils/100 WBC Auto (Bl d)Ordered By: Angel Betancourt on 10-29-2021 Eosinophils/100 WBC (Bld) 2.9 % [facility] Erythrocyte distribution wid th Auto (RBC) [Ratio]Ordered By: Angel Betancourt on 10-29-2021 Erythrocyte distribution width (RBC) [Ratio] 14.8 % 12.0-14.8 [facility] Estimated glomerular filtrat ion rate (GFR) non- AmericanOrdered By: Angel Betancourt on 10-29-2021 GFR/1.73 sq M.predicted among non-blacks MDRD (S/P/Bld) [Vol rate/Area] > 60 mL/Min [facility] Hematocrit Auto (Bld) [Volum e fraction]Ordered By: Angel Betancourt on 10-29-2021 Hematocrit (Bld) [Volume fraction] 45.8 % 38.8-50.0 [facility] Laboratory - Hematology and Cell countsOrdered By: Angel Betancourt on 10-29-2021 Nucleated RBC/100 WBC (Bld) [Ratio] 0.1 % 0-0.5 [facility] Lymphocytes Auto (Bld) [#/Vo l]Ordered By: Angel Betancourt on 10-29-2021 Lymphocytes (Bld) [#/Vol] 1.7 10*3/uL 1.00-4.8 [facility] Lymphocytes/100 WBC Auto (Bl d)Ordered By: Angel Betancourt on 10-29-2021 Lymphocytes/100 WBC (Bld) 21.8 % [facility] MCH Auto (RBC) [Entitic mass ]Ordered By: Angel Betancourt on 10-29-2021 MCH (RBC) [Entitic mass] 30.1 pg 27.5-35.2 [facility] MCHC Auto (RBC) [Mass/Vol]Or dered By: Angel Betancourt on 10-29-2021 MCHC (RBC) [Mass/Vol] 32.6 g/dL 32.5-35.6 [facility] MCV Auto (RBC) [Entitic vol] Ordered By: Angel Betancourt on 10-29-2021 MCV (RBC) [Entitic vol] 92.3 fL 83.5-101 [facility] Monocytes Auto (Bld) [#/Vol] Ordered By: Angel Betancourt on 10-29-2021 Monocytes (Bld) [#/Vol] 0.6 10*3/uL 0.0-0.8 [facility] Monocytes/100 WBC Auto (Bld) Ordered By: Angel Betancourt on 10-29-2021 Monocytes/100 WBC (Bld) 7.6 % [facility] Neutrophils Auto (Bld) [#/Vo l]Ordered By: Angel Betancourt on 10-29-2021 Neutrophils (Bld) [#/Vol] 5.1 10*3/uL 1.8-7.7 [facility] Neutrophils/100 WBC Auto (Bl d)Ordered By: Angel Betancourt on 10-29-2021 Neutrophils/100 WBC (Bld) 67.1 % [facility] No Panel InformationOrdered By: Angel Betancourt on 10-29-2021 Estimated GFR () > 60 mL/Min [facility] Comment on above: GFR estimated refere nce range: According to KDOQI guidelines, <60 ml/min/1.73m2 is sufficient to diagnose a patient with chronic kidney disease. Pharmacy Creatinine Clearance (Chem N/A [facility] No Panel Informationon 10-29 9.6\S\9.6 Normal 8.2-10.2 [facility] [employer] [address] 600 DO Work Phone: Comment on above: PERFORMED BY:[place] [id number] [place] [phone] MEDICAL DIRECTORROSCOE LEMUS M.D. 23.9\S\23.9 Normal 22.0-30.0 [facility] k 600 DO Work Phone: [phone] 105\S\105 Normal 95-114 [facility] DO Work Phone: [phone] 3.5\S\3.5 Normal 3.5-5.1 [facility] A[facility] k 600 DO Work Phone: 139\S\139 Normal 136-146 [facility] Ameena vasquez 600 DO Work Phone: > 60 Normal [facility] DO Work Phone: Comment on above: GFR estimated refere nce range: According to KDOQI guidelines, <60 ml/min/1.73m2 is sufficient to diagnose a patient with chronic kidney disease. 0.83\S\0.83 Normal 0.64-1.27 [facility] A[facility]ena k 600 DO Work Phone: 14\S\14 Normal 9-23 [facility] DO Work Phone: 117\S\117 above high threshold 70-100 [facility] 600 DO Work Phone: Comment on above: Random Glucose Refer ence Range is dependent on time and content of last meal. Glucose of more than 200 mg/dL in a nonstressed, ambulatory subject supports the diagnosis of Diabetes Mellitus. ADA recommended reference range 67.1\S\67.1 Normal . [facility] DO Work Phone: 9.0\S\9.0 Normal 6.6-10.1 [facility] vas[facility] 600 DO Work Phone: 196\S\196 Normal 150-450 -[facility] 600 DO Work Phone: 14.8\S\14.8 Normal 12.0-14.8 -[facility] 600 DO Work Phone: 32.6\S\32.6 Normal 32.5-35.6 [facility] [facility] 600 DO Work Phone: 30.1\S\30.1 Normal 27.5-35.2 -[facility] 600 DO Work Phone: 5.1\S\5.1 Normal 1.8-7.7 [facility] [facility] 600 DO Work Phone: 0.1\S\0.1 Normal 0-0.5 [facility] [facility] 600 DO Work Phone: 0.6\S\0.6 Normal 0.0-0.8 [facility] [facility] 600 DO Work Phone: 2.9\S\2.9 Normal . [facility] [facility] 600 DO Work Phone: 7.6\S\7.6 Normal 4.1-10.5 [facility] 600 DO Work Phone: 21.8\S\21.8 Normal . [facility] 600 DO Work Phone: 0.0\S\0.0 Normal 0.0-0.2 -[facility] 600 DO Work Phone: Comment on above: PERFORMED BY:[place] [address] [address] [place], [place] [phone] MEDICAL DIRECTORROSCOE LEMUS M.D. 0.2\S\0.2 Normal 0.0-0.45 -[facility] [facility] 600 DO Work Phone: 1.7\S\1.7 Normal 1.00-4.8 -[facility] 600 DO Work Phone: 92.3\S\92.3 Normal 83.5-101 [facility] k 600 DO Work Phone: 45.8\S\45.8 Normal 38.8-50.0 [facility] k 600 DO Work Phone: 14.9\S\14.9 Normal 13.0-17.0 -[facility] k 600 DO Work Phone: 4.96\S\4.96 Normal 3.90-5.60 [facility] k 600 DO Work Phone: Platelet mean volume Auto (B ld) [Entitic vol]Ordered By: Angel Betancourt on 10-29-2021 Platelet mean volume (Bld) [Entitic vol] 9.0 fL 6.6-10.1 [facility] Platelets Auto (Bld) [#/Vol] Ordered By: Angel Betancourt on 10-29-2021 Platelets (Bld) [#/Vol] 196 10*3/uL 150-450 [facility] RBC Auto (Bld) [#/Vol]Ordere d By: Angel Betancourt on 10-29-2021 RBC (Bld) [#/Vol] 4.96 10*6/uL 3.90-5.60 [facility] Serum or plasma calcium ozzie urement (mass/volume)Ordered By: Angel Betancourt on 10-29-2021 Calcium [Mass/Vol] 9.6 mg/dL 8.2-10.2 [facility] Serum or plasma chloride tatyana surement (moles/volume)Ordered By: Angel Betancourt on 10-29-2021 Chloride [Moles/Vol] 105 mmol/L 95-114 [facility] Serum or plasma glucose ozzie urement (mass/volume)Ordered By: Angel Betancourt on 10-29-2021 Glucose [Mass/Vol] 117 mg/dL 70-100 [facility] Comment on above: ADA recommended refe rence rangeRandom Glucose Reference Range is dependent on time and content of last meal. Glucose of more than 200 mg/dL in a nonstressed, ambulatory subject supports the diagnosis of Diabetes Mellitus. ADA recommended refe rence range Random Glucose Reference Range is dependent on time and content of last meal. Glucose of more than 200 mg/dL in a nonstressed, ambulatory subject supports the diagnosis of Diabetes Mellitus. Serum or plasma potassium me asurement (moles/volume)Ordered By: Angel Betancourt on 10-29-2021 Potassium [Moles/Vol] 3.5 mmol/L 3.5-5.1 [facility] Serum or plasma sodium measu rement (moles/volume)Ordered By: Angel Betancourt on 10-29-2021 Sodium [Moles/Vol] 139 mmol/L 136-146 [facility] Serum or plasma total carbon dioxide measurement (moles/volume)Ordered By: Angel Betancourt on 10-29-2021 CO2 [Moles/Vol] 23.9 mmol/L 22.0-30.0 [facility] Serum or plasma urea nitroge n measurement (mass/volume)Ordered By: Angel Betancourt on 10-29-2021 Urea nitrogen [Mass/Vol] 14 mg/dL 9-23 [facility] Office Visit (Cardiology)on 10-24-2021 Follow-up visit Diagnoses/Problems Assessed Angina pectoris (413.9) (I20.9) CAD (coronary artery disease) (414.00) (I25.10) SSS (sick sinus syndrome) (427.81) (I49.5) S/P placement of cardiac pacemaker (V45.01) (Z95.0) Second degree AV block, Mobitz type II (426.12) (I44.1) Difficulty breathing (786.09) (R06.89) Essential hypertension (401.9) (I10) Hyperlipidemia (272.4) (E78.5) Overweight with body mass index (BMI) of 27 to 27.9 in adult (278.02,V85.23) (E66.3,Z68.27) Former smoker (V15.82) (Z87.891) Orders CAD (coronary artery disease), Essential hypertension Renew: Aspirin EC 81 MG Oral Tablet Delayed Release; TAKE 1 TABLET DAILY Renew: Lisinopril 30 MG Oral Tablet; TAKE 1 TABLET DAILY CAD (coronary artery disease), SSS (sick sinus syndrome) IO EKG Electrocardiogram- 12 Lead; Status:Complete; Done: 24Oct2021 Hyperlipidemia Renew: Pravastatin Sodium 40 MG Oral Tablet; TAKE 1 TABLET DAILY Overweight with body mass index (BMI) of 27 to 27.9 in adult Healthy Weight Tips; Status:Complete; Done: 24Oct2021 S/P placement of cardiac pacemaker Basic Metabolic Panel; Status:Active; Requested for:24Oct2021; Complete Blood Count; Status:Active; Requested for:24Oct2021; CORONAVIRUS 2019 RNA BY PCR, SCREEN ASYMPTOMATIC AMBULATORY; Status:Hold For - Specimen/Data Collection; Requested for:24Oct2021; RESIDENT IN CONGREGATE CARE SETTING? : No ICU? : No HOSPITALIZED (OR PLANNED TO BE ADMITTED)? : No SYMPTOMATIC DEFINED BY CDC? : No EMPLOYED IN HEALTHCARE? : No FIRST COVID NASAL SWAB TEST? : Unknown Urinalysis; Status:Active; Requested for:24Oct2021; Xray Chest 2 View PA + Lateral; Status:Hold For - Scheduling; Requested for:24Oct2021; Radiologist to Determine Optimal Study : Y What are the patient's signs and symptoms? : Pacemaker generator change S/P placement of cardiac pacemaker, SSS (sick sinus syndrome) Pacemaker Clinic Referral and Follow-up Evaluation and Treatment Evaluate AND Treat Status: Hold For - Scheduling Requested for: [id number] Pacemaker Generator Change; Status:Active; Requested for:24Oct2021; SocHx: Former smoker Tobacco Use Screening; Status:Complete; Done: 24Oct2021 Patient Instructions By signing my name below, I, Marivel Monae LPN, Scribe, attest that this documentation has been prepared under the direction and in the presence of Dr. Angel Betancourt MD. All medical record entries made by the Radhaibe were at my direction and personally dictated by me. I have reviewed the chart and agree that the record accurately reflects my personal performance of the history, physical exam, discussion and plan. Please bring all medicines, vitamins, and herbal supplements with you when you come to the office. Prescriptions will not be filled unless you are compliant with your follow up appointments or have a follow up appointment scheduled as per instruction of your physician. Refills should be requested at the time of your visit. Follow up in 3 months Chief Complaint ALAN HERRERA is being seen for a cardiovascular evaluation of gen change 2016. History of Present Illness Patient returns after a long absence in follow-up of high-grade heart block. Years ago he underwent pacemaker implantation by me for symptomatic heart block and he is done well ever since please not been seen for 6 years. His device reached the elective replacement indicator because of this we have scheduled a generator change. Pacemaker leads otherwise appear to be working well on recent device check was reviewed with him and his and otherwise demonstrates no arrhythmias of concern We also discussed in great detail his coronary disease and the symptoms are preceded his original diagnosis and subsequent PTCA. After long detailed review of those symptoms he denies any such experience and because of this we presume his coronary disease to be stable but were concerned because in the past he had little or no warning and or did not recognize the symptoms when they were occurring. Ultimately the diagnosis was actually made when I performed a stress test for him some of his strange and/or atypical symptoms. Because of this I proposed to him that probably in several months we might consider a stress test. We reviewed the treatment of his hypertension and hyperlipidemia and control appears to be good. The merits of diet and weight loss were reviewed with him but he was congratulated on his continued smoking cessation accomplishments. Because of all the above we will proceed as originally intended and reconvene in several months. Current Meds Medication NameInstruction Advair HFA 230-21 MCG/ACT Inhalation AerosolINHALE 2 PUFFS AT 12 HOUR INTERVALS (MORNING AND EVENING). amLODIPine Besylate 5 MG Oral TabletTAKE 1 TABLET DAILY DIRECTED. Aspirin EC 81 MG Oral Tablet Delayed ReleaseTAKE 1 TABLET DAILY. Fish Oil 1000 MG Oral CapsuleTAKE 1 CAPSULE EVERY OTHER DAY hydroCHLOROthiazide 25 MG Oral TabletTAKE 1 TABLET DAILY. Lisinopril 30 MG O (more content not included)... [facility] Tobacco Screening.on 022 Adult depression screening assessment No [facility] 250 DO Work Phone: Fall risk assessment a) No falls within the last year [facility] 250 DO Work Phone: Tobacco use status CP b) No [facility] [place] [facility] DO Work Phone: Vital Signs Date Time Vital Sign Value Performing Clinician Facility 12-06-2023 11:35-0400 Body height 180.34 cm [facility] 12-06-2023 11:35-0400 Body mass index (BMI) [Ratio] 26.6 kg/m2 [facility] 12-06-2023 11:35-0400 Body weight 86.74 kg [facility] 12-06-2023 11:35-0400 Diastolic blood pressure 65 mm[Hg] [facility] 12-06-2023 11:35-0400 Heart rate 72 /min [facility] 12-06-2023 11:35-0400 Respiratory rate 16 /min [facility] 12-06-2023 11:35-0400 Systolic blood pressure 98 mm[Hg] [facility] 06-14-2023 08:26-0500 Body height 180.3 cm Angel Betancourt MD Work Phone: [facility] 06-14-2023 08:26-0500 Body mass index (BMI) [Ratio] 27.89 kg/m2 Angel Betancourt MD Work Phone: [facility] 06-14-2023 08:26-0500 Body weight 90.72 kg Angel Betancourt MD Work Phone: [facility] 06-14-2023 08:26-0500 Diastolic blood pressure 64 mm[Hg] Angel Betancourt MD Work Phone: [facility] 06-14-2023 08:26-0500 Heart rate 86 /min Angel Betancourt MD Work Phone: [facility] 06-14-2023 08:26-0500 Systolic blood pressure 98 mm[Hg] Angel Betancourt MD Work Phone: [facility] 04-05-2023 11:30-0400 Body height 180.34 cm Ferny Ball Other [facility] [employer] Other 04-05-2023 11:30-0400 Body mass index (BMI) [Ratio] 26.66 kg/m2 Ferny Ball Other [facility] [employer] Other 04-05-2023 11:30-0400 Body weight 86.73 kg Ferny Ball Other [facility] [employer] Other 04-05-2023 11:30-0400 Diastolic blood pressure 59 mm[Hg] Ferny Ball Other [facility] [employer] Other 04-05-2023 11:30-0400 Respiratory rate 12 /min Ferny Ball Other [facility] [employer] Other 04-05-2023 11:30-0400 Systolic blood pressure 92 mm[Hg] Ferny Ball Other [facility] [employer] Other 01-13-2023 13:14-0400 Blood Pressure Location [facility] 01-13-2023 13:14-0400 Diastolic blood pressure 62 mm[Hg] [facility] 01-13-2023 13:14-0400 Heart rate 76 /min [facility] N[facility] 01-13-2023 13:14-0400 Respiratory rate 16 /min Silas N[facility] 01-13-2023 13:14-0400 Systolic blood pressure 110 mm[Hg] [facility] 09-18-2022 14:52-0500 Body height 180.34 cm Caesar Glover Work Phone: [facility] DO Work Phone: 09-18-2022 14:52-0500 Body mass index (BMI) [Ratio] 27.48 kg/m2 Caesar Glover Work Phone: [facility] 250 DO Work Phone: 09-18-2022 14:52-0500 Body surface area Derived from formula 2.1 m2 Caesar Glover Work Phone: [facility] DO Work Phone: 09-18-2022 14:52-0500 Body weight 89.36 kg Caesar Glover Work Phone: [facility] 250 DO Work Phone: 09-18-2022 14:52-0500 Diastolic blood pressure 78 mm[Hg] Caesar Glover Work Phone: [facility] DO Work Phone: 09-18-2022 14:52-0500 Heart rate 66 /min Caesar Glover Work Phone: [facility] 250 DO Work Phone: 09-18-2022 14:52-0500 Systolic blood pressure 122 mm[Hg] Caesar Glover Work Phone: [facility] 250 DO Work Phone: 08-10-2022 11:41-0500 65 1 Caesar Glover Work Phone: [facility] Work Phone: Comment on above: [id number] 07-02-2022 14:41-0500 56 1 Caesar Glover Work Phone: [facility] 250 DO Work Phone: Comment on above: [id number] 06-18-2022 12:59-0500 Body height 180.34 cm Caesar Glover Work Phone: [facility] 250 DO Work Phone: 06-18-2022 12:59-0500 Body mass index (BMI) [Ratio] 27.2 kg/m2 Caesar Glover Work Phone: [facility] 250 DO Work Phone: 06-18-2022 12:59-0500 Body surface area Derived from formula 2.09 m2 Caesar Glover Work Phone: [facility] 250 DO Work Phone: 06-18-2022 12:59-0500 Body weight 88.45 kg Caesar Glover Work Phone: [facility] 250 DO Work Phone: 06-18-2022 12:59-0500 Diastolic blood pressure 76 mm[Hg] Caesar Glover Work Phone: [facility] DO Work Phone: 06-18-2022 12:59-0500 Heart rate 68 /min Caesar Glover Work Phone: [facility] DO Work Phone: 06-18-2022 12:59-0500 Systolic blood pressure 134 mm[Hg] Caesar Glover Work Phone: [facility] 250 DO Work Phone: 04-06-2022 08:55-0400 Body height 180.34 cm Caesar Glover Work Phone: [facility] 250 DO Work Phone: 04-06-2022 08:55-0400 Body mass index (BMI) [Ratio] 28.03 kg/m2 Caesar Glover Work Phone: [facility] 250 DO Work Phone: 04-06-2022 08:55-0400 Body surface area Derived from formula 2.11 m2 Caesar Glover Work Phone: [facility] 250 DO Work Phone: 04-06-2022 08:55-0400 Body weight 91.17 kg Caesar Glover Work Phone: [facility] 250 DO Work Phone: 04-06-2022 08:55-0400 Diastolic blood pressure 92 mm[Hg] Caesar Glover Work Phone: [facility] 250 DO Work Phone: 04-06-2022 08:55-0400 Heart rate 80 /min Caesar Glover Work Phone: [facility] 250 DO Work Phone: 04-06-2022 08:55-0400 Systolic blood pressure 170 mm[Hg] Caesar Glover Work Phone: [facility] 250 DO Work Phone: 03-04-2022 12:00-0400 52 1 Caesar Glover Work Phone: [facility] [place] Work Phone: Comment on above: [id number] 03-03-2022 09:34-0400 Body height 180.34 cm Caesar Glover Work Phone: [facility] 250 DO Work Phone: 03-03-2022 09:34-0400 Body mass index (BMI) [Ratio] 28.17 kg/m2 Caesar Glover Work Phone: [facility] DO Work Phone: 03-03-2022 09:34-0400 Body surface area Derived from formula 2.12 m2 Caesar Glover Work Phone: [facility] 250 DO Work Phone: 03-03-2022 09:34-0400 Body weight 91.63 kg Caesar Glover Work Phone: [facility] DO Work Phone: 03-03-2022 09:34-0400 Diastolic blood pressure 88 mm[Hg] Caesar Glover Work Phone: [facility] 250 DO Work Phone: 03-03-2022 09:34-0400 Heart rate 60 /min Caesar Glover Work Phone: [facility] 250 DO Work Phone: 03-03-2022 09:34-0400 Systolic blood pressure 136 mm[Hg] Caesar Glover Work Phone: [facility] 250 DO Work Phone: 11-13-2021 16:16-0400 Body height 180.34 cm Caesar Glover Work Phone: [facility] 250 DO Work Phone: 11-13-2021 16:16-0400 Body mass index (BMI) [Ratio] 27.48 kg/m2 Caesar Glover Work Phone: [facility] DO Work Phone: 11-13-2021 16:16-0400 Body surface area Derived from formula 2.1 m2 Caesar Glover Work Phone: [facility] 250 DO Work Phone: 11-13-2021 16:16-0400 Body temperature 98.1 [degF] Caesar Glover Work Phone: [facility] DO Work Phone: 11-13-2021 16:16-0400 Body weight 89.36 kg Caesar Glover Work Phone: [facility] 250 DO Work Phone: 11-13-2021 16:16-0400 Diastolic blood pressure 72 mm[Hg] Caesar Glover Work Phone: [facility] 250 DO Work Phone: 11-13-2021 16:16-0400 Heart rate 72 /min Caesar Glover Work Phone: [facility] 250 DO Work Phone: 11-13-2021 16:16-0400 Systolic blood pressure 136 mm[Hg] Caesar Glover Work Phone: [facility] DO Work Phone: 11-06-2021 11:23-0400 Diastolic blood pressure 51 mm[Hg] MD Caesar Glover Work Phone: [facility] 11-06-2021 11:23-0400 Heart rate 60 /min MD Caesar Glover Work Phone: [facility] 11-06-2021 11:23-0400 Respiratory rate 20 /min MD Caesar Glover Work Phone: [facility] 11-06-2021 11:23-0400 SaO2% (BldA) [Mass fraction] 93 % MD Caesar Glover Work Phone: [facility] 11-06-2021 11:23-0400 Systolic blood pressure 104 mm[Hg] MD Caesar Glover Work Phone: [facility] 11-06-2021 09:38-0400 Inhaled oxygen flow rate 8 L/min MD Caesar Glover Work Phone: [facility] 11-06-2021 08:26-0400 Body height 176.53 cm MD Caesar Glover Work Phone: [facility] 11-06-2021 08:26-0400 Body mass index (BMI) [Ratio] 28.5 kg/m2 MD Caesar Glover Work Phone: [facility] 11-06-2021 08:26-0400 Body weight 89 kg MD Caesar Glover Work Phone: [facility] 11-06-2021 07:29-0400 Body temperature 98.1 [degF] MD Caesar Glover Work Phone: [facility] 10-24-2021 13:51-0400 Diastolic blood pressure 82 mm[Hg] Caesar Glover Work Phone: [facility] 250 DO Work Phone: 10-24-2021 13:51-0400 Systolic blood pressure 156 mm[Hg] Caesar Glover Work Phone: [facility] DO Work Phone: 10-24-2021 13:47-0400 Body height 180.34 cm Caesar Glover Work Phone: [facility] 250 DO Work Phone: 10-24-2021 13:47-0400 Body mass index (BMI) [Ratio] 27.75 kg/m2 Caesar Glover Work Phone: [facility] 250 DO Work Phone: 10-24-2021 13:47-0400 Body surface area Derived from formula 2.1 m2 Caesar Glover Work Phone: [facility] 250 DO Work Phone: 10-24-2021 13:47-0400 Body weight 90.27 kg Caesar Glover Work Phone: [facility] 250 DO Work Phone: 10-24-2021 13:47-0400 Diastolic blood pressure 88 mm[Hg] Caesar Glover Work Phone: [facility] 250 DO Work Phone: 10-24-2021 13:47-0400 Heart rate 68 /min Caesar Glover Work Phone: [facility] DO Work Phone: 10-24-2021 13:47-0400 Systolic blood pressure 162 mm[Hg] Caesar Glover Work Phone: -[facility] [facility] DO Work Phone: Encounters Encounter Date Encounter Type Care Provider Facility Start: 12-06-2023 End: 12-06-2023 ambulatory [facility] Work Phone: Start: 12-06-2023 End: 12-06-2023 Patient encounter procedure [facility] Physician [facility] Work Phone: Start: 06-14-2023 End: 06-14-2023 ambulatory ANGEL [facility] Ambulatory Start: 06-14-2023 End: 06-14-2023 Office outpatient visit 25 minutes Angel Betancourt MD Work Phone: [facility] Comment on above: 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); CHB (complete heart block) (CMS/HCC); S/P placement of cardiac pacemaker; Mixed hyperlipidemia; Essential hypertension; Nonrheumatic aortic valve stenosis; Paroxysmal atrial fibrillation (CMS/HCC); Overweight (BMI 25.0-29.9) Start: 04-05-2023 End: 04-05-2023 ambulatory Ferny White Other [place] Other Start: 04-05-2023 Office outpatient vi sit 25 minutes Ferny White [facility] Start: 03-23-2023 End: 03-23-2023 ambulatory Caesar Glover Other [place] Other Start: 03-23-2023 Telephone encounter Caesar Glover [facility] Start: 03-08-2023 End: 03-08-2023 [facility] Start: 03-08-2023 End: 03-08-2023 ambulatory MD Caesar Glover Work Phone: [facility] Work Phone: Start: 03-08-2023 End: 03-08-2023 Patient encounter procedure MD Caesar Glover Work Phone: [facility] Start: 03-03-2023 End: 03-04-2023 ambulatory Silas R NILL Facility:[facility] Start: 03-01-2023 End: 03-01-2023 ambulatory Caesar Glover Other [place] Other Start: 03-01-2023 Telephone encounter Caesar DE JESUS [facility] Start: 02-17-2023 End: 02-17-2023 ambulatory Ferny White Other [place] Other Start: 02-17-2023 Telephone encounter Ferny [facility] Start: 02-11-2023 End: 02-11-2023 ambulatory Ferny White Other [place] [employer] Other Start: 02-11-2023 Telephone encounter Ferny [facility] Start: 02-10-2023 End: 02-11-2023 ambulatory Silas R NILL Facility:[id number] Start: 01-22-2023 Image Encounter Caesar Glover Work Phone: [facility] 250 DO Work Phone: Start: 01-13-2023 End: 01-14-2023 ambulatory Silas R NILL Facility:[facility] [place] Start: 01-13-2023 End: 01-13-2023 Patient encounter procedure Silas R NILL [facility] Start: 01-07-2023 ambulatory Silas NILL Facility:[facility] Start: 12-28-2022 ambulatory Silas NILL Facility:[facility] Start: 12-24-2022 End: 12-24-2022 ambulatory Ferny White Other [place] [employer] Other Start: 12-24-2022 Telephone encounter Ferny [facility] Start: 12-04-2022 End: 12-04-2022 ambulatory Anegl Betancourt Facility:[facility] Start: 12-04-[address] Caesar Glover Facility:[id number] Start: 10-26-2022 Rx Renewal Caesar Glover Work Phone: [facility] 250 DO Work Phone: Start: 09-18-2022 FUV, Provider: Angel Betancourt, Status: Pen, Time: 2:50 PM Caesar Glover Work Phone: [facility] 600 DO Work Phone: Start: 09-18-2022 Office outpatient vi sit 25 minutes Caesar Glover Work Phone: [facility] DO Work Phone: Start: 09-18-[address] Angel Betancourt II Facility: Start: 09-16-2022 Telephone encounter Caesar owens Work Phone: [facility] 600 DO Work Phone: Start: 09-03-2022 End: 09-03-2022 ambulatory Angel Betancourt Facility:[facility] Start: 09-03-2022 End: 09-03-2022 ambulatory MD Caesar Glover Work Phone: [facility] Work Phone: Start: 09-03-2022 End: 09-03-2022 Patient encounter procedure MD Caesar Glover Work Phone: [facility] Start: 09-03-[address] Caesar Glover Facility:[id number] Start: 08-14-2022 ambulatory STALIN ONOFRE Facility:H 1 Start: 08-13-[address] Caesar Glover Facility:[facility] Start: 08-13-[address] Caesar Glover Facility:[facility] Start: 08-10-2022 End: 08-11-[address] DOCTOR DOUGHERTY Facility:[facility]1 Start: 07-30-2022 AUDIT Caesar Glover Work Phone: [facility] Work Phone: Start: 07-30-2022 End: 07-31-[address] CAESAR GLOVER Facility:[facility]1 Start: 07-08-2022 Patient encounter procedure Caesar Glover Work Phone: [facility] 250 DO Work Phone: Start: 07-02-2022 End: 07-03-[address] ANGEL BETANCOURT Facility:[facility]1 Start: 06-18-2022 Office outpatient vi sit 25 minutes Caesar Glover Work Phone: [facility] 250 DO Work Phone: Start: 06-18-[address] Angel Betancourt II Facility:[id number] Start: 06-03-[address] Caesar Glover Facility:[id number] Start: 06-03-2022 End: 06-03-2022 ambulatory Angel Betancourt Facility:[facility] Start: 06-03-2022 End: 06-03-2022 ambulatory MD Caesar Glover Work Phone: [facility] Work Phone: Start: 06-03-2022 End: 06-03-2022 Patient encounter procedure MD Caesar Glover Work Phone: [facility] Start: 05-14-2022 Chart Update Caesar Glover Work Phone: [facility] 600 DO Work Phone: Start: 05-14-2022 Adult health examination Basil eric White Other [facility] [employer] Other Start: 05-07-[address] ANGEL MORENO II Facility:[id number] Start: 04-06-2022 Office outpatient vi sit 25 minutes Caesar Glover Work Phone: [facility] DO Work Phone: Start: 04-06-[address] Angel Betancourt II Facility: Start: 03-04-2022 Patient encounter procedure Caesar Glover Work Phone: [facility] [place] Work Phone: Start: 03-04-2022 STRESS NUC, Provider [facility],[id number], Status: Pen, Time: 12:00 PM Caesar Glover Work Phone: [facility] 250 DO Work Phone: Start: 03-04-[address] ANGEL MARIE LADI II Facility:[id number] Start: 03-03-2022 Office outpatient vi sit 25 minutes Caesar Glover Work Phone: [facility] DO Work Phone: Start: 02-26-2022 End: 02-26-2022 Patient encounter procedure MD Caesar Glover Work Phone: [facility] Start: 02-02-2022 End: 02-03-2022 ambulatory [facility] Facility: Start: 12-23-2021 End: 12-24-2021 ambulatory [facility] Facility: Start: 12-22-2021 End: 12-22-2021 Patient encounter procedure MD Caesar Glover Work Phone: [facility] Start: 11-13-2021 Postop follow up vis it related to original px Caesar Glover Work Phone: [facility] DO Work Phone: Start: 11-06-2021 SURGNONUH, Provider: Angel Betancourt, Status: Pen, Time: 9:00 AM Caesar Glover Work Phone: [facility] DO Work Phone: Start: 11-06-2021 End: 11-06-2021 Admission to same day surgery center MD Caesar Glover Work Phone: [facility] [place] Start: 11-05-2021 Chart Update Caesar Glover Work Phone: [facility] DO Work Phone: Start: 11-04-2021 End: 11-04-2021 Patient encounter procedure MD Caesar Glover Work Phone: [facility] Start: 10-30-2021 Chart Update Caesar Glover Work Phone: [facility] 600 DO Work Phone: Start: 10-29-2021 End: 10-29-2021 Patient encounter procedure MD Caesar Glover Work Phone: [facility]-Pre-Surgical Testing Start: 10-24-2021 Office outpatient ne w 60 minutes Caesar Glover Work Phone: [facility] 250 DO Work Phone: Start: 09-19-2021 End: 09-19-2021 Patient encounter procedure MD Caesar Glover Work Phone: [facility]-Pacemaker Check Start: 06-23-2021 End: 06-23-2021 Patient encounter procedure MD Caesar Glover Work Phone: [facility]-Pacemaker Check Procedures Date Procedure Procedure Detail Performing Clinician Start: 02-10-2023 Colonoscopy Angel Moreno MD Work Phone: Start: 11-06-2021 Implantation of card iac pacemaker MD Caesar Glover Work Phone: Start: 11-06-2021 End: 11-06-2021 Plain chest X-ray MD Caesar Glover Work Phone: Start: 11-08-2018 Screening for malign ant neoplasm of prostate Ferny Christopher Other Angioplasty of blood vessel Silas CATALAN Colonoscopy Silas CATALAN Depression screening Carlos White Other Implantation of card iac pacemaker Silas DANIELL Insertion of pacemak er pulse generator Caesar Perea Belen Work Phone: Percutaneous translu mahnaz coronary angioplasty Caesar Perea Belen Work Phone: Placement of stent i n cardiac conduit Silas CATALAN Screening for malign ant neoplasm of prostate Fenry White Other Total colonoscopy Caesar Brit owens Work Phone: Plan of Treatment Date Care Activity Detail Author Start: 02-10-2033 Screening for malignant neoplasm of colon [facility] Start: 03-07-2024 End: 03-07-2024 Patient encounter procedure 03/07/2024 9:40 AM EDT Office Visit [facility] [address] [place] [address] Angel Betancourt MD [address] [facility] [address] [place] [address] [facility] Start: 06-25-2023 COVID-19 Vaccine (5 - Pfizer series) COVID-19 Vaccine (5 - Pfizer series) [facility] Start: 05-28-2023 FUV, Provider: Angel Betancourt, Status: Pen, Time: 2:50 PM FUV, Provider: Angel Betancourt, Status: Pen, Time: 2:50 PM [facility] Work Phone: Start: 01-08-2023 FUV, Provider: Angel Betancourt, Status: Pen, Time: 2:30 PM FUV, Provider: Angel Betancourt, Status: Pen, Time: 2:30 PM [facility] Work Phone: Start: 08-14-2022 ECHO, Provider: [facility] ,[id number], Status: Pen, Time: 10:45 AM ECHO, Provider: BERTRAND Z[facility] ULTRASOUND ,[id number], Status: Pen, Time: 10:45 AM [facility] Work Phone: Start: 08-13-2022 PST, [facility],PULM, Status: Pen, Time: 2:30 PM PST, Provider: [facility] [address],PULM, Status: Pen, Time: 2:30 PM [facility] Work Phone: Start: 08-13-2022 PFT, Provider: [facility] 6TH FLR PFT RM 2,PULM, Status: Pen, Time: 1:30 PM PFT, Provider: [facility] 6TH FLR PFT RM 2,PULM, Status: Pen, Time: 1:30 PM [facility] Work Phone: Start: 08-13-2022 ABG, Provider: [facility] 6TH FLR PFT RM 2,PULM, Status: Pen, Time: 1:15 PM ABG, Provider: [facility] 6TH FLR PFT RM 2,PULM, Status: Pen, Time: 1:15 PM [facility] Work Phone: Start: 06-18-2022 FUV, Provider: Angel Betancourt, Status: Pen, Time: 1:00 PM FUV, Provider: Angel Betancourt, Status: Pen, Time: 1:00 PM [facility] Work Phone: Start: 05-07-2022 CAROTID, Provider: BERTRAND ZURITAI ULTRASOUND ,[id number], Status: Pen, Time: 10:45 AM CAROTID, Provider: BERTRAND [facility] ULTRASOUND ,[id number], Status: Pen, Time: 10:45 AM [facility] 250 DO Work Phone: Start: 04-06-2022 FUV, Provider: Angel Betancourt, Status: Pen, Time: 8:50 AM FUV, Provider: Angel Betancourt, Status: Pen, Time: 8:50 AM [facility] 250 DO Work Phone: Start: 03-03-2022 FUV, Provider: Angel Betancourt, Status: Pen, Time: 9:20 AM FUV, Provider: Angel Betancourt, Status: Pen, Time: 9:20 AM -[facility] 250 DO Work Phone: Start: 11-13-2021 WOUNDCINDY, Provider: ELLIE TINEO DESIGN DRAFTER CHIEF 1,[id number], Status: Pen, Time: 9:30 AM WOUNDCINDY, Provider: ELLIE TINEO DESIGN DRAFTER CHIEF 1,[id number], Status: Pen, Time: 9:30 AM -[facility] 250 DO Work Phone: Start: 11-07-2021 Plain chest X-ray XR chest 2V* [facility] Start: 11-06-2021 SURGNON, Provider: Angel Betancourt, Status: Pen, Time: 9:00 AM SURGNONUH, Provider: Angel Betancourt, Status: Pen, Time: 9:00 AM -[facility] 250 DO Work Phone: Start: 2012 Abdominal aortic aneurysm screening Abdominal Aortic Aneurysm (AAA) Screening [facility] Start: 1997 Zoster Vaccines (1 of 2) Zoster Vaccines (1 of 2) [facility] Start: 1969 DTaP/Tdap/Td Vaccines (1 - Tdap) DTaP/Tdap/Td Vaccines (1 - Tdap) [facility] Start: 1965 Hepatitis C screening Hepatitis C Screening [facility] Start: 1947 Lipid panel Lipid Panel [facility] Start: 1945 Medicare Annual Wellness Visit Medicare Annual Wellness Visit (AWV) [facility] Start: 1945 Screening for malignant neoplasm of colon [facility] Comprehensive metabo lic 2000 panel - Serum or Plasma [facility] Immunizations Immunization Date Immunization Notes Care Provider Fa cility 04-30-2023 influenza virus vaccine, unspecified formulation Angel Betancourt MD Work Phone: [facility] Work Phone: 05-18-2022 Pfizer COVID-19 Vac Bivalent 30 MCG/0.3ML Intramuscular Suspension Caesar E Belen Work Phone: [facility] Comment on above: Result Comment: 2022: [id number] 05-18-2022 Pfizer Purple Cap SARS-CoV-2 Angel Betancourt MD Work Phone: [facility] Work Phone: 04-21-2022 influenza virus vaccine, split virus (incl. purified surface antigen) Ferny White Other [facility] [employer] Other 04-21-2022 influenza virus vaccine, unspecified formulation [facility] 04-18-2022 influenza virus vaccine, unspecified formulation [facility] 04-18-2022 influenza, high dose seasonal, preservative-free Caesar E Glover Work Phone: [facility] [employer] DO Work Phone: Comment on above: Series: 05-21-2021 Pfizer-BioNTech COVID-19 Vacc 30 MCG/0.3ML Intramuscular Suspension Caesar E Glover Work Phone: [facility] Comment on above: Result Comment: 2022: [id number] 05-05-2021 influenza virus vaccine, split virus (incl. purified surface antigen) Ferny White Other [employer] Other 05-05-2021 influenza virus vaccine, unspecified formulation [facility] 05-05-2021 Seasonal trivalent influenza vaccine, adjuvanted, preservative free Caesar E [facility]over [facility] Work Phone: 11-13-2020 Pfizer-BioNTech COVID-19 Vacc 30 MCG/0.3ML Intramuscular Suspension Caesar E Glover Work Phone: [facility] 10-23-2020 Pfizer-BioNTech COVID-19 Vacc 30 MCG/0.3ML Intramuscular Suspension Caesar Glover Work Phone: [facility] 04-01-2020 influenza virus vaccine, split virus (incl. purified surface antigen) Ferny White Other [facility] [employer] Other 04-01-2020 influenza virus vaccine, unspecified formulation [facility] 04-01-2020 influenza, injectabl e, quadrivalent, contains preservative Caesar Glover Work Phone: [facility] [employer] DO Work Phone: 05-05-2019 influenza virus vaccine, split virus (incl. purified surface antigen) Ferny White Other [facility] [employer] Other 05-05-2019 influenza virus vaccine, unspecified formulation [facility] 05-05-2019 influenza, injectabl e, quadrivalent, contains preservative Caesar Glover Work Phone: [facility] [employer] DO Work Phone: 05-02-2018 influenza virus vaccine, split virus (incl. purified surface antigen) Ferny White Other [facility] [employer] Other 05-02-2018 influenza virus vaccine, unspecified formulation [facility] 05-02-2018 Seasonal trivalent influenza vaccine, adjuvanted, preservative free Caesar Glover Work Phone: [facility] [employer] DO Work Phone: 08-03-2017 diphtheria, tetanus toxoids and acellular pertussis vaccine, unspecified formulation Ferny White Other [facility] 08-03-2017 pneumococcal conjuga te vaccine, 13 valent Caesar Glover Work Phone: [facility] 05-20-2017 influenza virus vaccine, split virus (incl. purified surface antigen) Ferny White Other [facility] [employer] Other 05-20-2017 influenza virus vaccine, unspecified formulation [facility] 05-20-2017 Seasonal trivalent influenza vaccine, adjuvanted, preservative free Caesar Perea Glover Work Phone: [facility] 250 DO Work Phone: 05-19-2016 influenza virus vaccine, unspecified formulation Caesar E Glover Work Phone: [facility] 250 DO Work Phone: 05-19-2015 influenza virus vaccine, unspecified formulation Caesar E Glover Work Phone: [facility] 250 DO Work Phone: 08-13-2014 pneumococcal polysaccharide vaccine, 23 valent Ferny Ball Other [facility] 04-23-2014 influenza virus vaccine, unspecified formulation Caesar E Glover Work Phone: [facility] 250 DO Work Phone: 04-18-2014 pneumococcal polysaccharide vaccine, 23 valent Caesar E Glover Work Phone: [facility] 250 DO Work Phone: 05-22-2013 influenza virus vaccine, unspecified formulation Caesar E Glover Work Phone: [facility] 250 DO Work Phone: influenza virus vaccine, unspecified formulation Caesar E Glover Work Phone: [facility] 250 DO Work Phone: Comment on above: Apr 20122010 Payers Date Payer Category Payer Medicare [facility] E MEDICARE [employer] MEDICARE [id number] 2023-Present [address] [place] [address] [id number] 2022 Private Health Insurance [id number] 2016 Medicare [id number] 1959 Medicare [id number] 1959 Private Health Insurance [id number] 1959 Self-pay [id number] 1947 Unknown [id number] 2.16.840.1.815343.3.579.2. 1068 1947 Unknown [id number] 2.16.840.1.231307.3.579.2. 1068 1947 Unknown [id number] 2.16.840.1.216369.3.579.2. 593 1947 Unknown [id number] 2.16.840.1.033132.3.579.2. 593 1947 Unknown [id number] 2.16.840.1.911615.3.579.2. 593 1947 Unknown [id number] 2.16.840.1.280373.3.579.2. 593 1947 Unknown [id number] 2.16.840.1.568030.3.579.2. 593 1947 Unknown [id number] 2.16.840.1.341575.3.579.2. 727 1947 Unknown [id number] 2.16.840.1.534420.3.579.2. 727 1947 Unknown [id number] 2.16.840.1.120503.3.579.2. 727 1947 Unknown [id number] 2.16.840.1.507833.3.579.2. 727 1947 Unknown [id number] 2.16.840.1.727813.3.579.2. 727 1947 Unknown [id number] 2.16.840.1.172903.3.579.2. 356 1947 Unknown [id number] 2.16.840.1.051664.3.579.2. 356 1947 Unknown [id number] 2.16.840.1.162853.3.579.2. 356 1947 Unknown [id number] 2.16.840.1.423302.3.579.2. 356 1947 Unknown [id number] 2.16.840.1.514439.3.579.2. 356 1947 Unknown [id number] 2.16.840.1.765087.3.579.2. 356 1947 Unknown [id number] 2.16.840.1.472159.3.579.2. 356 1947 Unknown [id number] 2.16.840.1.097798.3.579.2. 356 1947 Unknown [id number] 2.16.840.1.570907.3.579.2. 356 1947 Unknown [id number] 2.16.840.1.293064.3.579.2. 1244 Unknown [id number] Unknown Unknown [id number] 2.16.840.1.786678.3.579.2. 593 Unknown [id number] 2.16.840.1.523579.3.579.2. 531 Unknown [id number] 2.16.840.1.502170.3.579.2. 531 Unknown [id number] 2.16.840.1.846070.3.579.2. 531 Unknown [id number] 2.16.840.1.722619.3.579.2. 531 Social History Date Type Detail Facility Tobacco smoking stat us [facility] Unknown if ever smoked [facility] Work Phone: Start: 1945 Sex Assigned At Male F [facility] Start: 06-14-2023 Daily caffeine consumption, 2-3 servings a day Daily caffeine consumption, 2-3 servings a day -[facility] 250 DO Work Phone: Comment on above: Quit 2019 <1 ppd; 2 cups coffee in mor christal; Start: 10-29-2021 End: 11-06-2021 Tobacco smoking status NHIS Ex-smoker (finding) [facility] Start: 06-14-2023 Sex Assigned At F [facility] Tobacco smoking status Never [facility] History of tobacco use Current smoker [facility] Work Phone: History of tobacco use Cigarette Smoker [facility] Work Phone: Start: 06-14-2023 Alcohol intake Lifetime non-d susi (finding) [facility] Work Phone: Start: 1945 Sex Assigned At Not on file [facility] Work Phone: Start: 06-04-2023 End: 06-14-2023 Exposure to SARS-CoV-2 (event) Not sure [facility] Medical Equipment Procedure Code Equipment Code Equipment Origin al Text Equipment Identifier Dates Insertion, pacemaker Dual-chamber implantable pacemaker, rate-responsive [id number] [facility] Start: 11-06-2021 Goals Date Patient Goal Desired Activity /State Functional Status Date Assessment Result Facility 01-13-2023 Functional Status N/A [facility] Clinical Notes 11-04-2021 to 06-14-2023 Angel Betancourt MD - 06/14/2023 8:30 AM ESTPatient Instructions Note Date & Type Note Facility 06-14-2023 History of Presen t illness Narrative Subjective Alan Herrera is a 77 y.o. male Chief Complaint Follow-up HPI Patient returns in follow-up of problems as noted. He is done well. He denies angina CHF or arrhythmia symptomatology. Recent pacemaker check in November is reviewed and demonstrates atrial fibrillation lasting up to more than a day and because of this we advocate continued Eliquis therapy and he concurs We note low blood pressure. Occasionally he is orthostatic and because of this I recommend we stop amlodipine. His other medications should be continued and we advocated no other changes. Treatment of other risk factors appears adequate and appropriate because of all the above we suggest no adjustments or changes. Review of Systems All other systems reviewed and are negative. Visit Vitals BP 98/64 (BP Location: Left arm, Patient Position: Sitting) Pulse 86 Ht 1.803 m (5' 11 ) Wt 90.7 kg (200 lb) BMI 27.89 kg/m Smoking Status Former BSA 2.13 m Objective Physical Exam Constitutional: Appearance: Normal appearance. He is normal weight. HENT: Nose: Nose normal. Neck: Vascular: No carotid bruit. Cardiovascular: Rate and Rhythm: Normal rate. Pulses: Normal pulses. Heart sounds: Normal heart sounds. Pulmonary: Effort: Pulmonary effort is normal. Abdominal: General: Bowel sounds are normal. Palpations: Abdomen is soft. Genitourinary: Rectum: Normal. Musculoskeletal: General: Normal range of motion. Cervical back: Normal range of motion. Right lower leg: No edema. Left lower leg: No edema. Skin: General: Skin is warm and dry. Neurological: General: No focal deficit present. Mental Status: He is alert. Psychiatric: Mood and Affect: Mood normal. Behavior: Behavior normal. Thought Content: Thought content normal. Judgment: Judgment normal. Current Medications Current Outpatient Medications: amLODIPine (Norvasc) 10 mg tablet, Take 1 tablet (10 mg) by mouth once daily., Disp: , Rfl: aspirin 81 mg EC tablet, Take 1 tablet (81 mg) by mouth 1 (one) time per week., Disp: , Rfl: atorvastatin (Lipitor) 20 mg tablet, Take 1 tablet (20 mg) by mouth once daily at bedtime., Disp: , Rfl: Eliquis 5 mg tablet, Take 1 tablet (5 mg) by mouth 2 times a day., Disp: , Rfl: fish oil concentrate (Starlight-3) 120-180 mg capsule, Take 1 capsule (1 g) by mouth every other day., Disp: , Rfl: hydroCHLOROthiazide (HYDRODiuril) 25 mg tablet, Take 1 tablet (25 mg) by mouth once daily., Disp: , Rfl: lisinopril 30 mg tablet, Take 1 tablet (30 mg) by mouth once daily., Disp: , Rfl: multivitamin (Daily Multi-Vitamin) tablet, Take 1 tablet by mouth once daily., Disp: , Rfl: sertraline (Zoloft) 50 mg tablet, Take 1 tablet (50 mg) by mouth once daily., Disp: , Rfl: spironolactone (Aldactone) 25 mg tablet, Take 1 tablet (25 mg) by mouth once daily., Disp: , Rfl: Trelegy Ellipta 100-62.5-25 mcg blister with device, Inhale 1 puff once daily., Disp: , Rfl: Assessment/Plan 1. Coronary artery disease involving nondalton coronary artery of nondalton heart without angina pectoris Asymptomatic without anginal symptomatology. Detailed questioning reveals no symptoms. 2. CHB (complete heart block) (CMS/HCC) Adequately addressed with pacemaker implant 3. S/P placement of cardiac pacemaker Device checks are reviewed and satisfactory. Device is functioning well, and it does document paroxysms of atrial fibrillation 4. Mixed hyperlipidemia Well-controlled on current therapy 5. Essential hypertension Well-controlled on current therapy. We advocated cessation of amlodipine because of low blood pressure. He states that when he saw primary care it was low then as well. 6. Nonrheumatic aortic valve stenosis Mild aortic valve disease on echocardiogram performed earlier this year. Will wait till next encounter to order 1 7. Paroxysmal atrial fibrillation (CMS/HCC) Paroxysmal atrial fibrillation is asymptomatic. Because of this we will not implement antiarrhythmic therapy. Antithrombotic therapy does appear to be appropriate. 8. Overweight (BMI 25.0-29.9) The merits of a modest diet and weight maintenance were advocated. documented in this encounter [facility] Work Phone: 06-14-2023 Instructions Audelia Ramey LPN - 06/14/2023 8:30 AM EST Please bring all medicines, vitamins, and herbal supplements with you when you come to the office. Prescriptions will not be filled unless you are compliant with your follow up appointments or have a follow up appointment scheduled as per instruction of your physician. Refills should be requested at the time of your visit. Pacemaker/Defibrillator follow up per routine documented in this encounter [facility] Work Phone: 04-05-2023 Evaluation note Encounter Date Diagnosis Assessment Notes Mar, ASHD (arteriosclerotic heart disease) (ICD-10 - I25.10) This patient is stable without activity related CP, dyspnea or lightheadedness. They are instructed to continue exercise and AHA diet plan. Continue secondary prevention measures. Mar, Mucopurulent chronic bronchitis (ICD-10 - J41.1) Some CASTILLO but encouraged to continue w/ activity and light exercise. f/u Pulmonary and continue yearly LDCT lungs. Mar, Permanent atrial fibrillation (ICD-10 - I48.21) This patient is in NSR or rate controlled. This patient is anticoagulated to prevent thromboembolic events. They are maintaining regular scheduled appts with their core dropper. No bleeding complications Mar, ADEN (obstructive sleep apnea) (ICD-10 - G47.33) This patient is aware of the benefits associated with ADEN: With continued use, the patient reduces the risk for ME, CVA, HTN, cardiac dysrhythmias and sudden cardiac deaths.The patient is also aware of the association between ADEN and morning headaches, daytime somnolence, fatigue and obesity, which also has been improved with continued use.The patient is compliant with treatment, wearing the equipment every night for greater than 4 hours.The patient is instructed to continue use of the CPAP for ADEN treatment. Mar, Primary hypertension (ICD-10 - I10) This patient is instructed to consume a healthy, low-fat, low-salt diet. They are also encouraged to continue exercise to achieve/maintain a normal BMI. Mar, Hypercholesterolemia (ICD-10 - E78.00) Instructed on diet and exercise with continued statin therapy.Discusse d the beneficial effects of lowering cholesterol in reducing the risk for cerebrovascular and cardiovascular disease. Mar, Erectile dysfunction due to arterial insufficiency (ICD-10 - N52.01) Somewhat improved w/ Cialis. Counseled to avoid use of NTG Mar, Poor urinary stream (ICD-10 - R39.12) Somewhat improved w/ Cialis Mar, Benign prostatic hyperplasia with lower urinary tract symptoms (ICD-10 - N40.1) Symptoms tolerable. [facility] Other 09-05-2023 Evaluation note* Encounter Date Diagnosis Assessment Notes Treatment Notes Treatment Clinical Notes Mar, Primary hypertension (ICD-10 - I10) [facility] Other 08-02-2023 Evaluation note* Encounter Date Diagnosis Assessment Notes Treatment Notes Treatment Clinical Notes Feb, Mucopurulent chronic bronchitis (ICD-10 - J41.1) Feb, Pulmonary nodule (ICD-10 - R91.1) CT: lingula 2.1cm (following w/ Samsa) LDCT: no suspicious nodules - 02/2023 [facility] Other 08-02-2023 Evaluation note* Encounter Date Diagnosis Assessment Notes Treatment Notes Treatment Clinical Notes Feb, Solitary pulmonary nodule (ICD-10 - R91.1) LDCT 02/02/2022 showed no change in lingula nodule @ 2.1cm. Resuming LDCT, due 01/2023. Feb, Mucopurulent chronic bronchitis (ICD-10 - J41.1) Feb, ADEN (obstructive sleep apnea) (ICD-10 - G47.33) [place] Other 06-28-2023 NoteChief Complaint consultation for colonoscopy HPI Staff 77 year old male presents on consultation from Dr. White for surveillance colonoscopy. Denies abdominal or rectal pain. Denies rectal bleeding or change in bowel habits. No nausea or vomiting. Approximately 10-20 pound weight loss over the past one year which he contributes to decrease in appetite. Patient taking Eliquis for a.fib. Last colonoscopy completed 06/2016 with diverticular disease and internal hemorrhoids. History of tubular adenoma 2012. Father with history of colon cancer, diagnosedage 70's. History of Present Illness 77 yo male with h/o CAD, atrial fibrillation, on Eliquis, sick sinus syndrome, with pacemaker, htn,hyperlipidemia, COPD, aortic stenosis, ADEN, referred for surveillance colonoscopy; last [id number] with diverticular disease; h/o colonoscopy in 2012 with removal of 3 tubular adenomas; denies change in bms or blood in stools, no abd complaints; no abd operations; on Eliquis, no asa or NSAID use, no SBE prophylaxis; fmhx of colon cancer in patient's father, dx in his 70's, no fmhx of Ibd; former smoker, quit 3 years ago. Review of Systems PHQ Score Initial Depression Screen Score: 0 ROS - Provider Constitutional: no fever, no sweats, no weight loss. Eyes: no glasses, no blurred vision, no visual loss. ENMT: no dentures, no hoarseness, no swallowing difficulties, no hearing loss, no ear infection(s),no nose bleeds. Cardiovascular: normal blood pressure, no chest pain, regular heartbeat, no heart murmur. Respiratory: no shortness of breath, no cough, no asthma, no wheezing. Gastrointestinal: no nausea, no vomiting, no diarrhea, no constipation, no blood in stool, no change in bowel habits, no abdominal pain, no hepatitis. Genitourinary: no kidney stones, no urine infection, no dysuria. Musculoskeletal: no pain, no weakness. Skin: no changing moles, no rash, no skin lumps. Neurologic: no seizures, no epilepsy, no headache. Psychiatric: no emotional or psychiatric problem. Heme/Lymph: no bleeding problems, no anemia, no blood clots, no transfusions. Allergy/Immunologic: no swollen lymph nodes/glands, no IV drug abuse. Other: Additional ROS info: Except as noted in the above Review of Systems and in the History of Present Illness, all other systems have been reviewed and are negative or noncontributory. Physical Exam Vitals & Measurements HR: 76(Peripheral) RR: 16 BP: 110/62 HT: 71 in HT: 180.34 cm WT: 86.9 kg WT: 191.18 lb BMI: 26.72 HEENT: normal conjunctiva, sclera clear, no scleral icterus, EOM intact, PERRLA, oral mucosa moist without lesions. Neck: trachea midline, no mass, symmetric, no thyromegaly or nodules, no adenopathy Respiratory: lungs CTA, respirations non labored. Cardiovascular: regular rate and rhythm, mild murmur, no pedal edema or varicosities. Gastrointestinal: soft, non distended, no tenderness, no masses, no palpable hernias, diastasis recti no, no hepatosplenomegaly; normal bs Lymphatic: no cervical adenopathy, no supraclavicular adenopathy. Musculoskeletal: normal gait, digits and nails without infection, nodes, cyanosis, clubbing. Skin: no rashes, no lesions, no ulcers, no subcutaneous nodules, induration. Psychiatric/Neuro: oriented to time, place, person, judgement normal, affect appropriate for age, insight intact, no focal deficits. Tests: , review of old records completed, Discussed surgical options, risks, and possible complications with patient. Assessment/Plan 1. Personal history of colonic polyps (Z86.010: Personal history of colonic polyps) plan surveillance colonoscopy under anesthesia; informed consent obtained. hold Eliquis 2 days prior to OR; cardiac clearance. Follow-up No qualifying data available Problem List/Past Medical History Ongoing Aortic valve stenosis ASHD (arteriosclerotic heart disease) Atrial fibrillation BMI 26.0-26.9,adult BPH (benign prostatic hyperplasia) Carotid bruit Chronic obstructive pulmonary disease Depression Dyspnea on exertion Erectile dysfunction co-occurrent and due to arterial insufficiency Essential hypertension Ex-smoker Hypercholesteremia Hyperlipidemia Mitral valve annular calcification Nodule of lung Obstructive sleep apnea syndrome Overweight Personal history of colonic polyps Pulmonary emphysema Sick sinus syndrome Historical No qualifying data Procedure/Surgical History Angioplasty, Colonoscopy, Colonoscopy, Implantation of cardiac pacemaker, Placement of stent in cardiac conduit. Medications Albuterol (Eqv-ProAir HFA), 2 puff(s), Inhalation, q4hr, PRN alfuzosin 10 mg ER Tab, 10 mg= 1 tab(s), Oral, Daily amlodipine, 10 mg, Oral, Daily aspirin 81 mg Oral EC Tab, 81 mg= 1 tab(s), Oral, Daily atorvastatin 20 mg Tab, 20 mg= 1 tab(s), Oral, Daily Eliquis 5 mg oral tablet, 5 mg= 1 tab(s), Oral, BID hydrochlorothiazide, 25 mg, Oral, Daily lisinopril, 30 mg, Oral, Daily sertraline, 50 mg, Oral, (more content not included)...[facility]:Result Comment: Electronically Signed By: Silas CATALAN MD\Date and Time Signed: 01/13/23 13:45 [id number] NoteFR COVID- 19 [facility]Range:Negative Comments:Testing for SARS-CoV-2 by RT-PCR This test was developed and its performance characteristics determined by [employer]) and validated at the [facility]. This test has not been FDA cleared or approved. This test has been authorized by FDA under an Emergency Use Authorization (EUA). This test has been validated in accordance with the FDA's Guidance Document (Policy for Diagnostics Testing in Laboratories Certified to Perform High Complexity Testing under CLIA prior to Emergency Use Authorization for Coronavirus Disease-2019 during the Public Health Emergency) issued on October 19, 2019. This test is only authorized for the duration of time the declaration that circumstances exist justifying the authorization of the emergency use of in vitro diagnostic tests for detection of SARS-CoV-2 virus and/or diagnosis of COVID-19 infection under section 564(b)(1) of the Act, 21 U.S.C. 360bbb-3(b)(1), unless the authorization is terminated or revoked sooner.PERFORMED BY:[place] [id number] [place], [place] [id number] MEDICAL DIRECTORROSCOE LEMUS M.D. -[place] [address] DO Work Phone: Comment on above:Testing for SARS-CoV-2 by RT-PCR This test was developed and its performance characteristics determined by [employer]) and validated at the [facility]. This test has not been FDA cleared or approved. This test has been authorized by FDA under an Emergency Use Authorization (EUA). This test has been validated in accordance with the FDA's Guidance Document (Policy for Diagnostics Testing in Laboratories Certified to Perform High Complexity Testing under CLIA prior to Emergency Use Authorization for Coronavirus Disease-2019 during the Public Health Emergency) issued on October 19, 2019. This test is only authorized for the duration of time the declarationthat circumstances exist justifying the authorization of the emergency use of in vitro diagnostic tests for detection of SARS-CoV-2 virus and/or diagnosis of COVID-19 infection under section 564(b)(1) of the Act, 21 U.S.C. 360bbb-3(b)(1), unless the authorization is terminated or revoked sooner.PERFORMED BY:[place] [address] [address] [place] [place] [id number] MEDICAL DIRECTORROSCOE LEMUS M.D. 11-04-2021 NoteFR COVID-19 [facility] (Normal[facility]Range:Negative Comments:Testing for SARS-CoV-2 by RT-PCR This test was developed and its performance characteristics determined by [employer]) and validated at the [facility]. This test has not been FDA cleared or approved. This test has been authorized by FDA under an Emergency Use Authorization (EUA). This test has been validated in accordance with the FDA's Guidance Document (Policy for Diagnostics Testing in Laboratories Certified to Perform High Complexity Testing under CLIA prior to Emergency Use Authorization for Coronavirus Disease-2019 during the Public Health Emergency) issued on October 19, 2019. This test is only authorized for the duration of time the declaration that circumstances exist justifying the authorization of the emergency use of in vitro diagnostic tests for detection of SARS-CoV-2 virus and/or diagnosis of COVID-19 infection under section 564(b)(1) of the Act, 21 U.S.C. 360bbb-3(b)(1), unless the authorization is terminated or revoked sooner.PERFORMED BY:[place] [address] [address] [place] [id number] MEDICAL KRISTA LEMUS M.D. [facility] [place] DO Work Phone: Comment on above:Testing for SARS-CoV-2 by RT-PCR This test was developed and its performance characteristics determined by [employer]) and validated at the [facility]. This test has not been FDA cleared or approved. This test has been authorized by FDA under an Emergency Use Authorization (EUA). This test has been validated in accordance with the FDA's Guidance Document (Policy for Diagnostics Testing in Laboratories Certified to Perform High Complexity Testing under CLIA prior to Emergency Use Authorization for Coronavirus Disease-2019 during the Public Health Emergency) issued on October 19, 2019. This test is only authorized for the duration of time the declarationthat circumstances exist justifying the authorization of the emergency use of in vitro diagnostic tests for detection of SARS-CoV-2 virus and/or diagnosis of COVID-19 infection under section 564(b)(1) of the Act, 21 U.S.C. 360bbb-3(b)(1), unless the authorization is terminated or revoked sooner.PERFORMED BY:[facility] [place], [place] [phone] MEDICAL DIRECTORROSCOE LEMUS M.D. Chief complaint Narrative - ReportedALAN HERRERA is being seen for a cardiovascular evaluation of gen change 2016.-[facility] [address] DO Work Phone: Evaluation + Plan note No data available for this section General Surgery Jenna Evaluation noteNo assessment information available [facility] Work Phone: Evaluation noteNo InformationNort Dragon Port[place] Other Evaluation note* Diagnosis Coronary artery disease involving nondalton coronary artery of nondalton heart without angina pectoris- Primary CHB (complete heart block) (CMS/HCC) Atrioventricular block, complete S/P placement of cardiac pacemaker Mixed hyperlipidemia Essential hypertension Unspecified essential hypertension Nonrheumatic aortic valve stenosis Paroxysmal atrial fibrillation (CMS/HCC) Atrial fibrillation Overweight (BMI 25.0-29.9) Overweight documented in this encounter [facility] Work Phone: Evaluation note* Diagnosis Onset Date Resolution Status ASHD (arteriosclerotic heart disease) acute Atrial fibrillation acute Benign prostatic hyperplasia with lower urinary tract symptoms acute Chronic bronchitis acute HTN (hypertension) acute Hypercholesterolemia acute ADEN (obstructive sleep apnea) acute Medicare annual wellness visit, subsequent noneactive [facility] Work Phone: History general Narrative - Reported* Type Description Date Medical History Hypercholesteremia Medical History HTN (hypertension) Medical History Depression Medical History COPD (chronic obstructive pulmon nicholas disease) Surgical History cardiac pacemeker Hospitalization History see surgical hx [place] Other History general Narrative - Reported* Type Description Date Medical History Hypercholesteremia Medical History HTN (hypertension) Medical History Depression Medical History COPD (chronic obstructive pulmon nicholas disease) Surgical History cardiac pacemeker Surgical History Colonoscopy w/ polypectomy, rep eat 5 years 01/2023 Hospitalization History see surgical hx [place] Other History of Present illness Narrative* Patient returns after a long absence in follow-up of high-grade heart block. Years ago he underwentpacemaker implantation by me for symptomatic heart block and he is done well ever since please not been seen for 6 years. His device reached the elective replacement indicator because of this we havescheduled a generator change. Pacemaker leads otherwise appear to be working well on recent device c dee was reviewed with him and his and otherwise demonstrates no arrhythmias of concern * We also discussed in great detail his coronary disease and the symptoms are preceded his original diagnosis and subsequent PTCA. After long detailed review of those symptoms he denies any such experience and because of this we presume his coronary disease to be stable but were concerned because in the past he had little or no warning and or did not recognize the symptoms when they were occurring.Ultimately the diagnosis was actually made when I performed a stress test for him some of his strange and/or atypical symptoms. Because of this I proposed to him that probably in several months we might consider a stress test. * We reviewed the treatment of his hypertension and hyperlipidemia and control appears to be good. The merits of diet and weight loss were reviewed with him but he was congratulated on his continued smoking cessation accomplishments. Because of all the above we will proceed as originally intended ede in several months. -[facility] 250 DO Work Phone: History of Present illness NarrativePatient returns following recent pacemaker generator change. He did well and healed up fine. Post implant device check was satisfactory. Control of risk factors including his lipids and hypertension are reviewed and they are well controlled. He does have aortic valve disease but the stenosis is notbad enough that any intervention is necessary. He does, though, complained of some chest pain. He is worried about progression of disease. He reminds me that he had a tight LAD but also moderate disease in the right coronary and circumflex and it was me years ago and because of this and his symptomatology he is concerned. Ultimately we agreed to perform stress test with isotope imaging. He is notable to walk on a treadmill and in fact he has a left bundle branch block caused by his pacemaker and this makes treadmill testing of no utility. Because of this pharmacologic stress testing with isotope imaging will be undertaken if abnormalities are identified we will recommend angiographic evaluation. In the meantime we did advocate the merits of diet exercise and weight loss.-[facility] 250 DO Work Phone: History of Present illness Narrative* Patient returns in follow-up of problems as noted. In the interim he underwent stress testing because of his concerns regarding progressive coronary disease. His stress test proved to be normal and he was provided education and reassurance. He is, though, noted to be hypertensive. He stopped takinghis amlodipine for no good reason. Because of this I recommend he resume it and come back for the blood pressure check in the near future. The paramount importance of good risk factor management and control was emphasized and he begrudgingly agrees to resume the medicine * On exam today I noticed a carotid bruit on the right side. Because of this I recommended carotid ultrasound. We reviewed with him his lab results as well as recent pacemaker checks demonstrating underlying complete heart block but satisfactory device performance and no breakthrough arrhythmias. Because of all the above we suggest continued therapy as is but the reinitiation of amlodipine. He willfollow-up after carotid ultrasonography is performed we will provide guidance regarding carotid disease management. [facility] 250 DO Work Phone: History of Present illness Narrative* Patient returns in follow-up of problems as noted. In the interim he underwent stress testing because of his concerns regarding progressive coronary disease. His stress test proved to be normal and he was provided education and reassurance. He is, though, noted to be hypertensive. He stopped takinghis amlodipine for no good reason. Because of this I recommend he resume it and come back for the blood pressure check in the near future. The paramount importance of good risk factor management and control was emphasized and he begrudgingly agrees to resume the medicine * On exam today I noticed a carotid bruit on the right side. Because of this I recommended carotid ultrasound. We reviewed with him his lab results as well as recent pacemaker checks demonstrating underlying complete heart block but satisfactory device performance and no breakthrough arrhythmias. Because of all the above we suggest continued therapy as is but the reinitiation of amlodipine. He willfollow-up after carotid ultrasonography is performed we will provide guidance regarding carotid disease management. [facility] Work Phone: History of Present illness Narrative* Patient returns in follow-up of problems as noted. In the interim he underwent stress testing because of his concerns regarding progressive coronary disease. His stress test proved to be normal and he was provided education and reassurance. He is, though, noted to be hypertensive. He stopped takinghis amlodipine for no good reason. Because of this I recommend he resume it and come back for the blood pressure check in the near future. The paramount importance of good risk factor management and control was emphasized and he begrudgingly agrees to resume the medicine * On exam today I noticed a carotid bruit on the right side. Because of this I recommended carotid ultrasound. We reviewed with him his lab results as well as recent pacemaker checks demonstrating underlying complete heart block but satisfactory device performance and no breakthrough arrhythmias. Because of all the above we suggest continued therapy as is but the reinitiation of amlodipine. He willfollow-up after carotid ultrasonography is performed we will provide guidance regarding carotid disease management. [facility] Work Phone: History of Present illness NarrativeReturns in follow- up of problems as noted. He is doing well. I cannot elicit any angina CHF or arrhythmia symptomatology. Recent pacemaker checks demonstrate satisfactory device performance and the device is obviously mitigated the previously observed sick sinus syndrome and complete heart block. He has no symptoms of coronary disease based upon our review and consequently we believe he is stablein this regard. Previous carotid ultrasonography demonstrates stable disease and because of this nointervention or angiographic evaluation appears necessary at this time. His aortic valve disease isalso stable and his murmur is soft suggesting only mild to moderate stenosis.-[facility] 250 DO Work Phone: History of Present illness Narrative* Patient is added on at my suggestion to discuss a recent pacemaker check. That pacemaker check demonstrated satisfactory device performance but prolonged episodes of atrial fibrillation. The patient was unaware and asymptomatic. We recommended initiation of Eliquis therapy and reduction of aspirin. * In regards to his coronary disease he denies angina or anginal equivalent symptomatology. His hypertension and lipids appear to be adequately addressed and he has none of the symptoms of coronary disease that preceded his original diagnosis and subsequent angioplasty and stenting. The patient's aortic valve disease was recently evaluated at the suggestion of another healthcare provider and that echo report from the outside facility is reviewed with the patient and demonstrates normal function and moderate stenosis. Advised him and his he may require aortic valve intervention within several years. * For the time being, though, he appears to be stable and asymptomatic in regards to coronary diseaseheart failure and arrhythmia. Stroke risk will be mitigated with anticoagulant therapy and we will reconvene in several months. As before the merits of weight loss and diet were advocated. 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 Chief Complaint 2nd degree heart blo ck. SSS Chief Complaint 2nd degree heart blo ck. SSS SSS Chief Complaint 2nd degree heart blo ck. SSS SSS SSS Chief Complaint SSS SSS SSS 2nd degree heart block Chief Complaint 2nd degree heart blo ck Chief Complaint Wellness Reason for Visit ASHD (arteriosclerot ic heart disease) Atrial fibrillation Benign prostatic hyperplasia with lower urinary tract symptoms Chronic bronchitis HTN (hypertension) Hypercholesterolemia ADEN (obstructive sleep apnea) Medicare annual wellness visit, subsequent Advance Directives Advance Directive Response Recorded Date/ Time Advance Directives No March 03, 2018 11:15am Advance Directive Response Recorded Date/ Time Advance Directives No March 03, 2018 12:15pm Family History Unknown Family Member Name Dates Details Family history of congestive heart failure: Mother(V17.49, Z82.49) Status:Active Family history of hypertensi on: Mother(V17.49, Z82.49) Status:Active Stroke syndrome: Mother Status:Active Relationship Condition Age at Onset Recorded Date/T eric brother History of coronary artery bypass surgery Unknown Coronary artery disease Unknown brother Leukemia Unknown father Malignant neoplasm of colon Unknown Not Specified Diabetes mellitus Unknown Congestive heart failure Unknown Unknown Family Member Name Dates Details Family history of congestive heart failure: Mother(V17.49, Z82.49) Status:Active Family history of hypertensi on: Mother(V17.49, Z82.49) Status:Active Stroke syndrome: Mother Status:Active Unknown Family Member Name Dates Details Family history of congestive heart failure: Mother(V17.49, Z82.49) Status:Active Family history of hypertensi on: Mother(V17.49, Z82.49) Status:Active Stroke syndrome: Mother Status:Active Unknown Family Member Name Dates Details Family history of congestive heart failure: Mother(V17.49, Z82.49) Status:Active Family history of hypertensi on: Mother(V17.49, Z82.49) Status:Active Stroke syndrome: Mother Status:Active Unknown Family Member Name Dates Details Family history of congestive heart failure: Mother(V17.49, Z82.49) Status:Active Family history of hypertensi on: Mother(V17.49, Z82.49) Status:Active Stroke syndrome: Mother Status:Active Unknown Family Member Name Dates Details Family history of congestive heart failure: Mother(V17.49, Z82.49) Status:Active Family history of hypertensi on: Mother(V17.49, Z82.49) Status:Active Stroke syndrome: Mother Status:Active Unknown Family Member Name Dates Details Family history of congestive heart failure: Mother(V17.49, Z82.49) Status:Active Family history of hypertensi on: Mother(V17.49, Z82.49) Status:Active Stroke syndrome: Mother Status:Active Unknown Family Member Name Dates Details Stroke syndrome: Mother Status:Active Family history of hypertensi on: Mother(V17.49, Z82.49) Status:Active Family history of congestive heart failure: Mother(V17.49, Z82.49) Status:Active Unknown Family Member Name Dates Details Family history of congestive heart failure: Mother(V17.49, Z82.49) Status:Active Family history of hypertensi on: Mother(V17.49, Z82.49) Status:Active Stroke syndrome: Mother Status:Active Unknown Family Member Name Dates Details Family history of congestive heart failure: Mother(V17.49, Z82.49) Status:Active Family history of hypertensi on: Mother(V17.49, Z82.49) Status:Active Stroke syndrome: Mother Status:Active Unknown Family Member Name Dates Details Family history of congestive heart failure: Mother(V17.49, Z82.49) Status:Active Family history of hypertensi on: Mother(V17.49, Z82.49) Status:Active Stroke syndrome: Mother Status:Active Unknown Family Member Name Dates Details Family history of congestive heart failure: Mother(V17.49, Z82.49) Status:Active Family history of hypertensi on: Mother(V17.49, Z82.49) Status:Active Stroke syndrome: Mother Status:Active Unknown Family Member Name Dates Details Family history of congestive heart failure: Mother(V17.49, Z82.49) Status:Active Family history of hypertensi on: Mother(V17.49, Z82.49) Status:Active Stroke syndrome: Mother Status:Active Unknown Family Member Name Dates Details Stroke syndrome: Mother Status:Active Family history of hypertensi on: Mother(V17.49, Z82.49) Status:Active Family history of congestive heart failure: Mother(V17.49, Z82.49) Status:Active Unknown Family Member Name Dates Details Family history of congestive heart failure: Mother(V17.49, Z82.49) Status:Active Family history of hypertensi on: Mother(V17.49, Z82.49) Status:Active Stroke syndrome: Mother Status:Active Unknown Family Member Name Dates Details Family history of congestive heart failure: Mother(V17.49, Z82.49) Status:Active Family history of hypertensi on: Mother(V17.49, Z82.49) Status:Active Stroke syndrome: Mother Status:Active Unknown Family Member Name Dates Details Stroke syndrome: Mother Status:Active Family history of hypertensi on: Mother(V17.49, Z82.49) Status:Active Family history of congestive heart failure: Mother(V17.49, Z82.49) Status:Active Unknown Family Member Name Dates Details Family history of congestive heart failure: Mother(V17.49, Z82.49) Status:Active Family history of hypertensi on: Mother(V17.49, Z82.49) Status:Active Stroke syndrome: Mother Status:Active Unknown Family Member Name Dates Details Family history of congestive heart failure: Mother(V17.49, Z82.49) Status:Active Family history of hypertensi on: Mother(V17.49, Z82.49) Status:Active Stroke syndrome: Mother Status:Active Unknown Family Member Name Dates Details Family history of congestive heart failure: Mother(V17.49, Z82.49) Status:Active Family history of hypertensi on: Mother(V17.49, Z82.49) Status:Active Stroke syndrome: Mother Status:Active Relationship Condition Age at Onset Recorded Date/T eric brother History of coronary artery bypass surgery Unknown Coronary artery disease Unknown brother Leukemia Unknown father Malignant neoplasm of colon Unknown Not Specified Diabetes mellitus Unknown Congestive heart failure Unknown father Unknown Not Specified Unknown Chief Complaint Patient here S/P gen change done by Dr. Angel Betancourt MD at [facility] [place] on 11/06/2021. Dr. Angel Albarran, DO in suite. Pt denies any cardiac compliants. Med list updated verbally. Pt was given ATBS andfinished them. Insertion site has no signs of drainage or infection. There are no sterri strips intact. Insertion site reviewed by Tenzin Martínez RN prior to discharge. To Dr. Angel Betancourt MD for review.ALAN HERRERA is being seen for Results.ALAN HERRERA is being seen for Results.ALAN HERRERA is being seen for Results.ALAN HERRERA is being seen for Results.results.results. Summary Purpose Additional Source Comments Care Teams (unrecognized sec tion and content) Team Status: Active Member Role Status Dates Caesar Glover MD Primary Care Provider Active Team Status: Inactive Member Role Status Dates Caesar Glover MD Primary Care Provider Active Angel Betancourt MD Attending Provider Active Team Status: Inactive Member Role Status Dates Caesar Glover MD Primary Care Provider, Attending Kali segovia Active Inventory Analyst Relationship Specialty Start Date End Date Caesar Glover MD PCP - General 10/24/21 Team Status: Active Member Role Status Dates Ferny White DO Primary Care Provider Active Team Status: Inactive Member Role Status Dates Ferny White DO Primary Care Provide r, Attending Provider Active Start: December 06, 2023 End: December 06, 2023 Goals (unrecognized section and content) Goals may be documented in a n alternate sectionGoals may be documented in an alternate sectionGoals may be documented in an alternate sectionGoals may be documented in an alternate sectionGoals may be documented in an alternate sectionGoals may be documented in an alternate sectionGoals may be documented in an alternate sectionNo Information No data available for this sectionNo InformationNo InformationNo InformationNo InformationNo InformationGoals may be documented in an alternate sectionNo InformationNo InformationGoals may be documented in an alternate section (unrecognized sect ion and content) No Status Records FoundNo Status Records FoundNo Status Records FoundNo Status Records FoundNo Status Records FoundNo Status Records FoundNo Status Records Found INFORMATION SOURCE (unrecogn ized section and content) DATE CREATED AUTHOR 05/11/2022 [facility] DATE CREATED AUTHOR AUTHOR'S ORGANIZ ATION 08/15/2022 [facility] DATE CREATED AUTHOR AUTHOR'S ORGANIZ ATION 09/20/2022 [facility] DATE CREATED AUTHOR AUTHOR'S ORGANIZ ATION 03/08/2023 [facility] DATE CREATED AUTHOR AUTHOR'S ORGANIZ ATION 03/17/2023 [facility] DATE CREATED AUTHOR AUTHOR'S ORGANIZ ATION 03/18/2023 [facility] DATE CREATED AUTHOR AUTHOR'S ORGANIZ ATION 06/14/2023 [facility] REASON FOR VISIT (unrecogniz ed section and content) Reason Comments Follow-up 9 month FOR RECORDS PERTAINING TO PATIENTS WHO ARE OR HAVE BEEN ENROLLED IN A CHEMICAL DEPENDENCY/SUBSTANCEABUSE PROGRAM, SOME INFORMATION MAY BE OMITTED. This clinical summary was aggregated from multiple sources. Caution should be exercised in using it in the provision of clinical care. This summary normalizes information from multiple sources, and as a consequence, information in this document may materially change the coding, format and clinical context of patient data. In addition, data may be omitted in some cases. CLINICAL DECISIONS SHOULD BE BASED ON THE PRIMARY CLINICAL RECORDS. [employer] [facility]. provides no warranty or guarantee of the accuracy or completeness of information in this document.
[2024-03-06 10:41] LABS: Basophils Percent Auto 0.3 % (0.2-2.0); Eosinophils Absolute Auto 0.2 10^3/uL (0.0-0.7); Eosinophils Percent Auto 2.5 % (0.9-7.0); Hematocrit 41.2 % (42.0-54.0); Hemoglobin 13.2 g/dL (14.0-18.0); Immature Granulocytes Abs Auto 0.04 10^3/uL (0.00-0.03); Immature Granulocytes Pct Auto 0.5 % (0.0-0.5); Lymphocytes Absolute Auto 1.6 10^3/uL (1.2-3.8); Lymphocytes Percent Auto 18.7 % (20.5-60.0); Mean Corpuscular Hemoglobin 31.4 pg (25.9-34.0); Mean Corpuscular Volume 97.9 fL (80.0-94.0); Monocytes Absolute Auto 0.6 10^3/uL (0.3-0.8); Monocytes Percent Auto 6.9 % (1.7-12.0); Neutrophils Absolute Auto 6.2 10^3/uL (1.4-6.5); Neutrophils Percent Auto 71.1 % (43.0-75.0); Platelet Count 171 10^3/uL (150-450); Red Blood Count 4.21 10^6/uL (4.70-6.10); Red Cell Distribution Width 15.4 % (11.0-15.0); White Blood Count 8.7 10^3/uL (4.0-11.0)
[2024-03-06 12:26] LABS: Percent Iron Saturation 36.6 %
== END 2024-03-06 10:00 | disposition home or self-care (01) ==
LOC: LAB 10:04
PROVIDERS: PCP Internal Medicine; Visit Provider Internal Medicine
DX: D64.9 Anemia, unspecified (principal)
CPT/HCPCS: 36415; 82607; 82728; 82746; 83540; 83550; 85025

== ENCOUNTER 2024-04-17 12:31 | Outpatient (OUT) | payer MEDICARE, SELFPAY ==
--- OUTSIDE RECORDS SUMMARY | 2024-04-17 12:36 | XMS_ITS | CCD ---
Author Organization [facility] CliniSyct Care Team Providers Care Desk Operator Name Role Phone MD Caesar Glover Primary Care Provider MD Angel Betancourt Attending Provider MD Caesar Glover Attending Provider Caesar Glover Unavailable Unavailable Unavailable MD Caesar Glover Primary Care Provider MD Caesar Glover Attending Provider MD Angel Betancourt Attending Provider MD Caesar Glover Primary Care Provider MD Caesar Glover Primary Care Provider MD Angel Betancourt Attending Provider ASIA BOWLES, Dr. LINDER Attending Bernard Glover, Dr. Caesar Jesus Primary Care Abrilv dheeraj BETANCOURT II, Dr. LINDER Attending Bernard BETANCOURT II, Dr. LINDER Referring Bernard Glover, Dr. Caesar Jesus Primary Care Unav MD Caesar Morris Primary Care Provider MD Angel Betancourt Attending Provider DR CAESAR GLOVER Primary Care Unavailable ASIA, DR LINDER Admitting Unavailable ASIA, DR LINDER Attending Unavailable ASIA, DR LINDER Consulting Unavailable MISC, DR PUTNAM Admitting Unavailable DR CAESAR GLOVER Primary Care Unavailable MISC, DR PUTNAM Attending Unavailable PATRICC, DR PUTNAM Consulting Unavailable STALIN ONOFRE Attending Unavailable BELEN, DR CAESAR Perea Consulting Unavailable BELEN, DR CAESAR Perea Primary Care Unavailable SAMSA, STALIN Admitting Unavailable SAMSA STALIN Consulting Unavailable SAMSA, STALIN Admitting Unavailable SAMSA, STALIN Attending Unavailable GLOVER, DR CAESAR Perea Primary Care Unavailable SAMSA, STALIN Attending Unavailable ZIEBER, DR OSIRIS Clinton Consulting Unavailable GLOVER, DR CAESAR Perea Primary Care Unavailable SAMSA, STALIN Admitting Unavailable SAMSA, STALIN Consulting Unavailable MCGUINN, DR LINDER Admitting Unavailable MCGUINN, DR LINDER Attending Unavailable MCGUINN, DR LINDER Consulting Unavailable BELEN, DR CAESAR Perea Primary Care Unavailable MD Caesar Glover Primary Care Provider MD Angel Betancourt Attending Provider Ferny White Unavailable CAESAR GLOVER Primary Care Physician Caeasr Glover Unavailable Silas CATALAN Attending Unavailable HOSSEIN, Silas Clinton Attending Unavailable Silas CATALAN Attending Unavailable MD Caesar Glover Primary Care Provider MD Angel Betancourt Attending Provider Belen, Dr. Caesar Jesus Primary Care Unacesar ailjarrett Glover, Dr. Caesar Jesus Primary Care UnaFerny Calzada Referring Unavailable Henry, Ferny Attending Unavailable Belen, Dr. Caesar Jesus Primary Care Ferny Szymanski Attending Unavailable McGuinn II, Dr. Angel Jade Attending Unavailable Glover, Dr. Caesar Jesus Primary Care Unav ailable McGuinn II, Dr. Angel Jade Referring Unavailable McGuinn II, Dr. Angel Jade Attending Unavailable Glover, Dr. Caesar Jesus Primary Care Unav ailable McGuinn II, Dr. Angel Jade Referring Unavailable McGuinn II, Dr. Angel Jade Referring Unavailable McGuinn II, Dr. Angel Jade Attending Unavailable eBlen, Dr. Caesar Jesus Primary Care Romel Glover, Dr. Caesar Jesus Primary Care Romel Glover, Dr. Caesar Jesus Primary Care Romel Glover, Dr. Caesar Jesus Primary Care Romel Glover MD, Caesar Jesus Primary Care Provider Unavailable INDYUINANGEL Jaime Attending Unavailable BELEN, CAESAR JESUS Primary Care Unavaila ble MD Angel Betancourt Attending Provider DO Ferny White Primary Care Provider Ferny White Primary Care Unavailable Angel Betancourt Attending Unavail able Angel Betancourt Admitting Unavail able Allergies Allergy Classification Reported Allergen(s) Allergy Type Date of Onset Reaction(s) Facility (20 sources) Cefaclor; Translations: [Ceclor CAPS] Drug Allergy Hives, Itching [facility] 250 DO Work Phone: (15 sources) Cefaclor; Translations: [Cefaclor] Drug Allergy 10-30-19 22 Eruption of skin (disorder), Hives, Itching [facility] (8 sources) Cefaclor; Translations: [Ceclor] Drug Allergy 07-19-19 13 Unknown [facility] Repository (6 sources) Ceclor *CEPHALOSPORINS* Propensity to adverse reactions Unknown [employer] [facility] [employer] Other (6 sources) Allergies Reconciled Propensity to adverse reactions Unknown [employer] Other (6 sources) patient allergy list reviewed by nurse or physicia Propensity to adverse reactions 04-08-20 18 Comment:Done [employer] Other (3 sources) Cephalosporins (Antibiotic); Translations: [Cephalosporins] Allergy to substance 12-06-19 24 Unknown Reaction [facility] Medications Current Medications Medication Drug Class(es) Dates Sig (Normalized) Sig (Original) Aclidinium [place] (20 sources) Start: 10-29-2021 Aclidinium [place] (Tudorza Pressair) 400 mcg/actuation aerosol powdr breath activated Active 1 INH INHALATION As Directed October 29, 2021 9:32am Start: 10-29-2021 End: 10-29-2021 Aclidinium [place] (Tudorza Pressair) 400 mcg/actuation aerosol powdr breath activated Discontinued INHALATION October 29, 2021 9:32am October 29, 2021 9:40am Start: 10-29-2021 End: 12-03-2023 Aclidinium [place] (Tudorza Pressair) 400 mcg/actuation aerosol powdr breath activated Discontinued 1 INH INHALATION As Directed October 29, 2021 12:00am December 03, 2023 8:14am Start: 10-29-2021 Aclidinium Bro mide (Tudorza Pressair) 400 mcg/actuation aerosol powdr breath activated Active 1 INH INHALATION As Directed October 28, 2021 11:00pm Start: 10-29-2021 End: 10-29-2021 Aclidinium [place] (Tudorza Pressair) 400 mcg/actuation aerosol powdr breath activated Discontinued INHALATION October 28, 2021 11:00pm October 29, 2021 8:40am Start: 10-29-2021 Aclidinium Bro mide (Tudorza Pressair) 400 mcg/actuation aerosol powdr breath activated Active 1 INH INHALATION As Directed October 29, 2021 12:00am Start: 10-29-2021 End: 10-29-2021 Aclidinium [place] (Tudorza Pressair) 400 mcg/actuation aerosol powdr breath [...] hydrochloride 10 mg extended release oral tablet (10 sources) alpha-Adrenergic Niecy Start: 02-23-2024 End: 02-23-2024 take 10 mg by mouth once daily at mealtime Alfuzosin Active 10 MG PO Daily February 23, 2024 2:29pm administer after the same meal each day Start: 12-24-2022 take 1 tablet by kim th once daily alfuzosin 10 mg ER Tab [...] (Side effects) apixaban 5 mg oral tablet (17 sources) Factor Xa Inhibitor Start: 12-03-2023 take [...] Start : 18-Sep-2022 Active Start: 10-29-2021 End: 12-03-2023 Aspirin (Ching Low Dose Aspi rin) 81 [...] mouth every other day fish oil concentrate (Amber-3) 120-180 mg capsule Take 1 capsule (1 g) by mouth every other day. 0 Active take 1 capsule by mouth every ot her day Fish Oil 1000 MG Oral Capsule TAKE 1 CAPSULE EVERY OTHER DAY Quantity: 0 Refills: 0 Ordered: 24-Oct-2021 DO Active Fluticasone Propion-Salmeterol (15 sources) Corticosteroid, beta2-Adrenergic Agonist Start: 10-29-2021 take [...] 1 puff once daily. 0 06/21/2022 Active Oqoenfcsoll-Usvbcqtjs-Gxyndj er (2 sources) Start: 12-06-2023 Rmxfaobnyes-Kihywqyxp-Prtzzg er (Trelegy Ellipta) 200-62.5-25 mcg blister with device Active 1 INH INHALATION Daily December 06, 2023 12:00am folic acid 1 mg oral tablet (1 source) Start: 03-06-2024 take 1 mg by mouth once daily Folic Acid Active 1 MG PO Daily March 06, 2024 12:00am hydroCHLOROthiazide 25 mg or al tablet (20 sources) Thiazi de Diuret ic Start: 06-14-2023 take 1 tablet by [...] 12:00am metoprolol tartrate 50 mg oral tablet (18 sources) beta-Adrenergic Niecy Start: 12-03-2023 take 50 mg by mouth once daily Metoprolol Tartrate Active 50 MG PO Daily December 03, 2023 12:00am Start: 04-09-2021 Metoprolol Tar trate 50 MG Oral Tablet Quantity: 180 Refills: 0 Ordered: 11-Apr-2021 DO Start : 09-Apr-2021 Complete Metoprolol Tartr ate 50 MG (Prior Auth#:[id number]) Oral Active multivitamin (Daily Multi-Vitamin) tablet (1 source) take 1 tablet by mouth once daily multivitamin (Daily Multi-Vitamin) tablet Take 1 tablet by mouth once daily. 0 Active pravastatin sodium 40 mg oral tablet (14 sources) HMG-CoA Reductase Inhibitor Start: 12-03-19 take [...] tablet (20 sources) Serotonin Reuptake Inhibitor Start: 02-21-2024 take 1 tablet by mouth once daily Sertraline Active 0 .ROUTE .COMPLEX 90 February 21, 2024 11:34am TAKE 1 TABLET BY MOUTH DAILY Start: 07-07-2016 End: 02-21-2024 take 50 mg by mouth once daily Sertraline Discontinued 50 MG PO Daily October 29, 2021 12:00am February 21, 2024 11:34am spironolactone 25 mg oral tablet (12 sources) Aldosterone Antagonist Start: 07-08-2022 take 1 tablet by mouth once daily spironolactone (Aldactone) 25 mg tablet Take 1 tablet (25 mg) by mouth once daily. 0 09/18/2022 Active tadalafil 20 mg oral tablet (12 sources) Phosphodiesterase 5 Inhibitor Start: 12-06-2023 take [...] and unspecified angina pectoris] Onset: 04-06-2018 Chronic Deficiency and other anemia (1 source) Anemia; Translations: [Anemia, unspecified] 12-06-2023 Episodic Diabetes mellitus with complications (6 sources) Hyperglycemia [...] Onset: 08-12-2022 01-08-2023 Chronic Hyperplasia of prostate (15 sources) Nocturia due to benign prostatic hypertrophy; Translations: [Benign prostatic hyperplasia with lower urinary tract symptoms] Onset: 11-08-2018 01-08-2023 Chronic Immunizations and screening for infectious disease (13 sources) Patient encounter status; Translations: [Other specified vaccination] 12-06-2023 Episodic Malaise and fatigue (2 sources) Chronic [...] Long-term current use of inhaled steroid; Translations: [intermission coordinator (current) use of inhaled steroids] Episodic Other [...] of respiratory organs] Episodic Residual codes; unclassified (15 sources) Obstructive sleep apnea syndrome; Translations: [Obstructive [...] [Personal history of COVID-19] Unclassified (1 source) Nonrheumatic mitral (valve) annulus [...] Test Name Value Interpretation Reference Range Facility Basophils Auto (Bld) [#/Vol] on 03-06-2024 Basophils (Bld) [#/Vol] 0.0 10 3/uL 0.0-0.1 [facility] Basophils/100 WBC Auto (Bld) on 03-06-2024 Basophils/100 WBC (Bld) 0.3 % 0.2-2.0 [facility] Eosinophils/100 WBC Auto (Bl d)on 03-06-2024 Eosinophils/100 WBC (Bld) 2.5 % 0.9-7.0 [facility] Erythrocyte distribution wid th Auto (RBC) [Ratio]on 03-06-2024 Erythrocyte distribution width (RBC) [Ratio] 15.4 % High 11.0-15.0 [facility] Hematocrit Auto (Bld) [Volum e fraction]on 03-06-2024 Hematocrit (Bld) [Volume fraction] 41.2 % Low 42.0-54.0 [facility] Hemoglobin [Mass/volume] in Bloodon 03-06-2024 Hemoglobin (Bld) [Mass/Vol] 13.2 g/dL Low 14.0-18.0 [facility] Iron binding capacity [Mass/ volume] in Serum or Plasmaon 03-06-2024 Iron binding capacity [Mass/Vol] 309.0 ug/dL 250.0-450.0 [facility] Iron saturation [Mass Fracti on] in Serum or Plasmaon 03-06-2024 Iron saturation [Mass fraction] 36.6 % [facility] Laboratory - Chemistry and C hemistry - challengeon 03-06-2024 Cobalamin (Vitamin B12) [Mass/Vol] 871.0 pg/mL 193.0-986.0 [facility] Ferritin [Mass/Vol] 406.0 ng/mL High 26.0-388.0 [facility] Iron [Mass/Vol] 113.0 ug/dL 65.0-175.0 [facility] Laboratory - Hematology and Cell countson 03-06-2024 Immature granulocytes/100 WBC (Bld) 0.5 % 0.0-0.5 [facility] Leukocytes [#/volume] correc clarita for nucleated erythrocytes in Blood by Automated counon 03-06-2024 WBC corrected for nucl RBC Auto (Bld) [#/Vol] 8.7 10 3/uL 4.0-11.0 [facility] Lymphocytes Auto (Bld) [#/Vo l]on 03-06-2024 Lymphocytes (Bld) [#/Vol] 1.6 10 3/uL 1.2-3.8 [facility] Lymphocytes/100 WBC Auto (Bl d)on 03-06-2024 Lymphocytes/100 WBC (Bld) 18.7 % Low 20.5-60.0 [facility] MCH Auto (RBC) [Entitic mass ]on 03-06-2024 MCH (RBC) [Entitic mass] 31.4 pg 25.9-34.0 [facility] MCHC Auto (RBC) [Mass/Vol]on 03-06-2024 MCHC (RBC) [Mass/Vol] 32.0 g/dL 29.9-35.2 [facility] MCV Auto (RBC) [Entitic vol] on 03-06-2024 MCV (RBC) [Entitic vol] 97.9 fL High 80.0-94.0 [facility] Monocytes Auto (Bld) [#/Vol] on 03-06-2024 Monocytes (Bld) [#/Vol] 0.6 10 3/uL 0.3-0.8 [facility] Monocytes/100 WBC Auto (Bld) on 03-06-2024 Monocytes/100 WBC (Bld) 6.9 % 1.7-12.0 [facility] Neutrophils Auto (Bld) [#/Vo l]on 03-06-2024 Neutrophils (Bld) [#/Vol] 6.2 10 3/uL 1.4-6.5 [facility] Neutrophils/100 WBC Auto (Bl d)on 03-06-2024 Neutrophils/100 WBC (Bld) 71.1 % 43.0-75.0 [facility] No Panel Informationon 03-06 Eosinophils # (Auto) 0.2 10 3/uL 0.0-0.7 [facility] Folate 7.50 ng/mL Low 8.60-58.90 [facility] Immature Granulocyte # (Auto) 0.04 10 3/uL High 0.00-0.03 [facility] Platelet mean volume Auto (B ld) [Entitic vol]on 03-06-2024 Platelet mean volume (Bld) [Entitic vol] 11.0 fL 9.5-13.5 [facility] Platelets Auto (Bld) [#/Vol] on 03-06-2024 Platelets (Bld) [#/Vol] 171 10 3/uL 150-450 [facility] RBC Auto (Bld) [#/Vol]on RBC (Bld) [#/Vol] 4.21 10 6/uL Low 4.70-6.10 [facility] Ambulatory Visit Summaryon 0 03-03-2023 Ambulatory Visit Summary ALAN HERRERA :1945 Visit Date:03/03/2023 Ambulatory Visit Instructions Your Care Team Attending Physician - HOSSEIN BREAUX, iSlas Clinton Primary Care Physician - BELEN BREAUX, [...] polyps Pulmonary emphysema Sick sinus syndrome Normal [facility] General Surgery Office/Clini c Noteon 03-03-2023 [...] Immunizations Vaccine Date Status Comments SARS-CoV-2 (COVID-19) mRNAMUL.ORD![id number] 05/18/2022 Recorded 2023-01-08: TPV70 SARS-CoV-2 (COVID-19) mRNA BNT-162b2 vax 05/21/2021 Recorded 2023-01-08: TPV70 SARS-CoV-2 (COVID-19) mRNA BNT-162b2 vax 11/13/2020 Recorded SARS-CoV-2 (COVID-19) mRNA BNT-162b2 vax 10/23/2020 Recorded Normal [facility] Comment on above: Result Comment: Elec tronically Signed By: HOSSEIN BREAUX, Silas Wong\Date and Time Signed: 03/03/23 15:26 EDT Reminderson 03-03-2023 Reminders - From: Meghan Gonzáles LPN To: GSN - Clinical; Sent: 03/03/2023 15:23:27 EDT Show up: 01/11/2033 07:00:00 EDT Subject: colonoscopy recall Due Date/Time: 02/10/2033 07:00:00 EDT Reminder/Recall Patient due for screening colonoscopy 02/10/2033. Normal [facility] Outside Colonoscopyon 2022 Outside Colonoscopy [id number]#1.00CD:127 Normal [facility] Pathology Noteon 02-16-2023 Pathology Note [id number]#1.00CD:127 Normal [facility] Pre-Certification Formon Pre-Certification Form [id number]#1.00CD:127 [facility] Consultation Noteon 02-01-20 Consultation Note [id number]#1.00CD:127 Normal [facility] Formson 01-23-2023 Forms [id number]#1.00CD:127 [facility] Consent for Procedure/Surger yon 01-14-2023 Consent for Procedure/Surgery [id number]#1.00CD:127 [facility] Facesheeton 01-14-2023 Facesheet [id number]#1.00CD:127 [facility] Ambulatory Visit Summaryon 0 [...] polyps Pulmonary emphysema Sick sinus syndrome Normal [facility] Physician Referralon 023 Physician Referral [id number]#1.00CD:127 Normal [facility] Office Visit (Cardiology)on 09-18-2022 Follow-up visit Diagnoses/Problems [...] 02:52PM Hea (more content not included)... Normal [employer] Tobacco Screening.on 023 Adult depression screening assessment No -[facility] 250 DO Work Phone: Fall risk assessment a) No falls within the last year -[facility] 250 DO Work Phone: [phone] Tobacco use status CPHS b) No -[facility] 250 DO Work Phone: [phone] ARTERIAL BLOOD GAS,CO-OXon 0 08-13-2022 BASE EXCESS-BLOOD -0.9 mmol/L Normal -2.0 - 3.0 [facility] Comment on above: Performed By: #### A BGC2 #### [facility] [address] [place] [address] BICARB, CALCULATED 22.2 mmol/L Normal 22.0 - 26.0 [facility] Comment on above: Performed By: #### A BGC2 #### [facility] [address] [place] [address] CO HGB 2.0 % Abnormal [facility] Comment on above: Result Comment: REF VALUES NONSMOKERS 0.5-1.5% SMOKERS 0.5-10.0% Performed By: #### A BGC2 #### [facility] [address] [place] [address] DEOXY HGB 3.2 % Normal 0.0 - 5.0 [facility] Comment on above: Performed By: #### A BGC2 #### [facility] [address] [place] [address] Hemoglobin (Bld) [Mass/Vol] 15.0 g/dL Normal 13.5 - 17.5 [facility] Comment on above: Performed By: #### A BGC2 #### [facility] [address] [place] [address] MET HGB 0.9 % Normal 0.0 - 1.5 [facility] Comment on above: Performed By: #### A BGC2 #### [facility] [address] [place] [address] OXY HGB 93.9 % Low 94.0 - 98.0 [facility] Comment on above: Performed By: #### A BGC2 #### [facility] [address] [place] [address] Oxygen (Bld) [Partial pressure] 76 mm[Hg] Low 85 - 95 [facility] Comment on above: Performed By: #### A BGC2 #### [facility] [address] [place] [address] PATIENT TEMPERATURE 37.0 degrees C Normal [facility] Comment on above: Result Comment: NOTE : PATIENT RESULTS ARE NOT CORRECTED FOR TEMPERATURE. Performed By: #### A BGC2 #### [facility] [address] [place] [address] PCO2 32 mmHg Low 38 - 42 [facility] Comment on above: Performed By: #### A BGC2 #### [facility] [address] [place] [address] pH (Bld) 7.45 [pH] High 7.38 - 7.42 [facility] Comment on above: Performed By: #### A BGC2 #### [facility] [address] [place] [address] SO2 97 % Normal 94 - 100 [facility] Comment on above: Performed By: #### A BGC2 #### [facility] [address] 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 COMPARISON: No comparison images were available for review. ACCESSION NUMBER(S): [id number] ORDERING CLINICIAN: FERNY GARCIA TECHNIQUE: Using helical multidetector technique, volumetric data [...] agree with the findings as stated by residential treatment staff Elaine Barkley MD. This study was interpreted at [facility], [place], [place]. Electronically signed by: NELDA PORRAS MD Normal [facility] ECHOCARDIO M/2D COMPLETEon 0 08-10-2022 ECHOCARDIO M/2D COMPLETE Patient: ALAN HERRERA Exam Date: 08/10/2022 : 1945 Gender:M Ordering : FERNY GARCIA M.D. Admission #: [id number] Family : DR CAESAR GLOVER M.D. Order #: [id number] CLICK HERE TO VIEW EXAM ECHOCARDIOGRAM REPORT [...] Lopez M.D. on 08/10/2022 at 13:49 Normal [facility] PROF CHEM 8 (BAS METB)on Anion gap [Moles/Vol] 13.2 mmol/L Normal [facility] Comment on above: Performed By: #### B MP #### [facility] [address] [address] [address] Keya Kuhn Calcium [Mass/Vol] 9.1 mg/dL Normal 8.5-10.1 [facility] Comment on above: Performed By: #### B MP #### [facility] [address] [address] [address] Keya Kuhn Chloride [Moles/Vol] 108 mmol/L Critically high 98-107 [facility] Comment on above: Performed By: #### B MP #### [facility] [address] [address] [address] Keya Kuhn CO2 [Moles/Vol] 26.6 mmol/L Normal 21.0-32.0 [facility] Comment on above: Performed By: #### B MP #### [facility] [address] [place] [address] Dr. Keya Kuhn Creatinine [Mass/Vol] 0.87 mg/dL Normal 0.70-1.30 [facility] Comment on above: Performed By: #### B MP #### [facility] [address] [address] [address] Keya Kuhn EGFR-AF [facility] LUCIAN >60 Normal >=60 [facility] Comment on above: Performed By: #### B MP #### [facility] [address] [place] [address] Dr. Keya Kuhn EGFR-NON AF [facility] LUCIAN >60 Normal >=60 [facility] Comment on above: Performed By: #### B MP #### [facility] [address] [address] [address] Keya Kuhn Glucose [Mass/Vol] 112 mg/dL Critically high 74-106 [facility] Comment on above: Performed By: #### B MP #### [facility] [address] [address] [address] Keya Kuhn Potassium [Moles/Vol] 3.8 mmol/L Normal 3.5-5.1 [facility] Comment on above: Performed By: #### B MP #### [facility] [address] [place] [address] Dr. Keya Kuhn Sodium [Moles/Vol] 144 mmol/L Normal 136-145 [facility] Comment on above: Performed By: #### B MP #### [facility] [address] [address] [address] Keya Kuhn Urea nitrogen [Mass/Vol] 17.0 mg/dL Normal 7.0-18.0 [facility] Comment on above: Performed By: #### B MP #### [facility] [address] [address] [address] Keya Kuhn Urea nitrogen/Creatinine [Mass ratio] 19.5 mg/mg Normal [facility] Comment on above: Performed By: #### B MP #### [facility] [address] [address] [address] Keya Kuhn LIPID PROFILEon 07-02-2022 CHOL-HDL RATIO NORM SEE BELOW Normal [facility] Comment on above: Result Comment: 3.3 - 4.4 LOW RISK 4.4 - 7.1 AVERAGE RISK 7.1 - 11.0 MODERATE RISK >11.0 HIGH RISK Performed By: #### L IPID, AST, BMP, ALT #### [facility] [address] [address] [address] Keya Kuhn Cholesterol [Mass/Vol] 112 mg/dL Normal <=200 [facility] Comment on above: Performed By: #### L IPID, AST, BMP, ALT #### [facility] [address] [address] [address] Keya Kuhn Cholesterol in HDL [Mass/Vol] 43 mg/dL Normal 40-60 [facility] Comment on above: Performed By: #### L IPID, AST, BMP, ALT #### [facility] [address] [place], [place] [address] Dr. Keya Kuhn Cholesterol in LDL [Mass/Vol] 56.0 mg/dL Normal [facility] Comment on above: Performed By: #### L IPID, AST, BMP, ALT #### [facility] [address] [address] [address] Keya Kuhn Cholesterol.total/Ch olesterol in HDL [Mass ratio] 2.6 {ratio} Normal [facility] Comment on above: Performed By: #### L IPID, AST, BMP, ALT #### [facility] [address] [address] [address] Keya Kuhn HDL NORMAL > or = 60 mg/dl - LO W CARDIOVASCULAR RISK <40 mg/dl - HIGH CARDIOVASCULAR RISK Normal [facility] Comment on above: Performed By: #### L IPID, AST, BMP, ALT #### [facility] [address] [address] [address] Keya Kuhn LDL CALC NORMAL SEE BELOW Normal [facility] Comment on above: Result Comment: <100 mg/dl OPTIMAL 100 - 129 mg/dl NEAR OR ABOVE OPTIMAL 130 - 159 mg/dl BORDERLINE HIGH 160 - 189 mg/dl HIGH >190 mg/dl VERY HIGH Performed By: #### L IPID, AST, BMP, ALT #### [facility] [address] [address] [address] Keya Kuhn Triglyceride [Mass/Vol] 65 mg/dL Normal <=150 [facility] Comment on above: Performed By: #### L IPID, AST, BMP, ALT #### [facility] [address] [address] [address] Keya Kuhn VLDL CALC 13.0 mg/dL Normal [facility] Comment on above: Performed By: #### L IPID, AST, BMP, ALT #### [facility] [address] [address] [address] Keya Kuhn PROF CHEM 8 (BAS METB)on Anion gap [Moles/Vol] 11.5 mmol/L Normal [facility] Comment on above: Performed By: #### L IPID, AST, BMP, ALT #### [facility] [address] [address] [address] Keya Kuhn Calcium [Mass/Vol] 9.0 mg/dL Normal 8.5-10.1 [facility] Comment on above: Performed By: #### L IPID, AST, BMP, ALT #### [facility] [address] [address] [address] Keya Kuhn Chloride [Moles/Vol] 104 mmol/L Normal 98-107 [facility] Comment on above: Performed By: #### L IPID, AST, BMP, ALT #### [facility] [address] [address] [address] Keya Kuhn CO2 [Moles/Vol] 29.6 mmol/L Normal 21.0-32.0 [facility] Comment on above: Performed By: #### L IPID, AST, BMP, ALT #### [facility] [address] [address] [address] Keya Kuhn Creatinine [Mass/Vol] 0.82 mg/dL Normal 0.70-1.30 [facility] Comment on above: Performed By: #### L IPID, AST, BMP, ALT #### [facility] [address] [address] [address] Keya Kuhn EGFR-AF [facility] >60 Normal >=60 [facility] Comment on above: Performed By: #### L IPID, AST, BMP, ALT #### [facility] [address] [address] [address] Keya Kuhn EGFR-NON AF [facility] >60 Normal >=60 [facility] Comment on above: Performed By: #### L IPID, AST, BMP, ALT #### [facility] [address] [address] [address] Keya Kuhn Glucose [Mass/Vol] 118 mg/dL Critically high 74-106 [facility] Comment on above: Performed By: #### L IPID, AST, BMP, ALT #### [facility] [address] [address] [address] Keya Kuhn Potassium [Moles/Vol] 3.1 mmol/L Critically low 3.5-5.1 [facility] Comment on above: Performed By: #### L IPID, AST, BMP, ALT #### [facility] [address] [address] [address] Keya Kuhn Sodium [Moles/Vol] 142 mmol/L Normal 136-145 [facility] Comment on above: Performed By: #### L IPID, AST, BMP, ALT #### [facility] [address] [place], [place] [address] Dr. Keya Kuhn Urea nitrogen [Mass/Vol] 14.0 mg/dL Normal 7.0-18.0 [facility] Comment on above: Performed By: #### L IPID, AST, BMP, ALT #### [facility] [address] [place] [address] [address] Keya Kuhn Urea nitrogen/Creatinine [Mass ratio] 17.1 mg/mg Normal [facility] Comment on above: Performed By: #### L IPID, AST, BMP, ALT #### [facility] [address] [place] [address] Dr. Keya Jensen 07-02-2022 AST [Catalytic activity/Vol] 22 U/L Normal 15-37 [facility] Comment on above: Performed By: #### L IPID, AST, BMP, ALT #### [facility] [address] [place] [address] Dr. [facility] 07-02-2022 ALT [Catalytic activity/Vol] 21 U/L Normal 16-63 [facility] Comment on above: Performed By: #### L IPID, AST, BMP, ALT #### [facility] [address] [place] [address] Dr. Keya Kuhn Office Visit (Cardiology)on 06-18-2022 [...] Aminotransferase, Serum; Status:Active - Retrospective Authorization; Requested for:18Jun2022; AST; Status:Active - Retrospective Authorization; Requested for:18Jun2022; [...] Recorded: 18Jun2022 12:59PM Heart Rate68, L Radial Ukaianop877, LUE, Sitting Meychgpfm22, LUE, Sitting Height5 ft 11 in Nhqeee723 lb BMI Wsnbrxusuu40.2 kg/m2 BSA Calculated2.09 Tobacco Useb) No Falls [...] regular r (more content not included)... Normal path intelligence Tobacco Screening.on 022 Fall risk assessment a) No falls within the last year [facility] [employer] [place] 250 DO Work Phone: Tobacco use status [facility] b) No [facility] [employer] [place] 250 DO Work Phone: VASC LAB Carotid Artery Dupl ex Ultrasounon 05-07-2022 VAS LAB Carotid Artery Duplex Ultrasoun [address], [address], [place] [address] Vascular Lab Report Carotid Artery Duplex Ultrasound Patient Name: ALAN Calderon Anisa Physician: [id number] Danilo Paniagua MD, [facility] Study Date: 05/07/2022 Referring ANGEL BETANCOURT Physician: MRN/PID: [id number] PCP: Caesar Glover Accession/Order#: [id number] CC Report to: Date of : 1945 Technologist: Dee Corey RDCS, T Gender: M Technologist 2: Admission Status: Outpatient Location Performed: [facility] Diagnosis/ICD: R09.89-Other specified symptoms and signs involving the circulatory and respiratory systems Indication: HTN, Hyperlipidemia, Former Smoker, CAD, Complete Heart Block, Sick Sinus Syndrome, Pacemaker, Aortic Stenosis, COPD-on O2 at 2l Procedure/CPT: 11088 Cerebrovascular Carotid Duplex scan complete-20109 CONCLUSIONS: Right Carotid: Findings are consistent with [...] cm/s Right Left ICA/CCA Ratio 0.8 0.9 14748 Danilo Paniagua MD, [facility] Final Normal [facility] VASC LAB Carotid Artery Dupl ex Ultrasoundon 05-07-2022 US.doppler Carotid arteries Please click on the link to view the study images [facility] Work Phone: US.doppler Carotid arteries -[facility] [address] DO Work Phone: Office Visit (Cardiology)on [...] For - Scheduling,Retrospective By Protocol Authorization; Requested for:06Apr2022; Laterality : Bilateral Essential hypertension Renew: amLODIPine Besylate 10 MG Oral Tablet; TAKE 1 TABLET DAILY Overweight with body mass index (BMI) of 28 to 28.9 in adult Healthy Weight Tips; Status:Complete - Retrospective Authorization; Done: [id number] Some eating tips that can help you lose weight.; Status:Complete - Retrospective Authorization; Done: 66Shc0110 Patient Instructions Please bring all medicines, vitamins, [...] 2-3 servings a day Former smoker (V15.82) (Z87.505) No alcohol use No illicit drug use [...] negative for complaint. Vitals Vital Signs Recorded: 06Apr2022 08:55AM Heart Rate80, L Radial Xaicmizt938, LUE, Sitting Opiqotnzx38, LUE, Sitting Height5 ft 11 in Cynbag275 lb BMI Nlpwztxbrl69.03 kg/m2 BSA Calculated2.11 Tobacco Useb) No Falls [...] no mass (more content not included)... Normal path intelligence Tobacco Screening.on 022 Fall risk assessment a) No falls within the last year [facility] [place] 250 DO Work Phone: Tobacco use status [facility] b) No [facility] [place] 250 DO Work Phone: [facility] CARDIAC STRESS/REST INJE CTIONon 03-04-2022 [facility] CARDIAC STRESS/REST INJECTION Patient Name: ALAN HERRERA STUDY: MYOCARDIAL PERFUSION STRESS TEST WITH LEXISCAN Performing facility: [facility], [address] [place] [address], [address], [place] [address] [facility] Provider: Mignon Betancourt MD, FACC PCP: Dr. Sukhjinder Glover Supervising provider: Danilo Paniagua MD, FACC INDICATION: Angina CAD; HISTORY: Gender: M; Age: 76 y/o ; Height: 180.34 cm; Weight: 91.9268451 kg. CAD; High Cholesterol; HTN; PPM Chest Pain; SOB; Quit smoking unknown years ago. Cardiac catheterization on 2014. PTCA on 2014. COMPARISON: Previous nuclear testing completed [id number] at [facility]. ACCESSION NUMBER(S): [id number]; [id number]; [id number] ORDERING CLINICIAN: ANGEL BETANCOURT TECHNIQUE: ONE DAY [...] Electronically signed by: DANILO PANIAGUA MD Normal [facility] No Panel Informationon 03-04 Normal -[facility] [address] [place] Work Phone: Office Visit (Cardiology)on 03-03-2022 Follow-up [...] Med Order; Status:Hold For - Scheduling; Requested for:[id number]; Radiologist to Determine Optimal Study : Y What are the patient's signs and symptoms? : SOB, angina Hyperlipidemia Stop: Pravastatin Sodium 40 MG Oral Tablet Start: Atorvastatin Calcium 20 MG Oral Tablet; TAKE 1 TABLET AT BEDTIME Overweight with body mass index (BMI) of 28 to 28.9 in adult Healthy Weight Tips; Status:Complete; Done: 06Qxo3289 Some eating tips that can help you lose weight.; Status:Complete; Done: [id number] SocHx: Former smoker Tobacco Use Screening; Status:Complete; Done: 06Ytc5627 Patient Instructions Please bring all medicines, vitamins, [...] negative for complaint. Vitals Vital Signs Recorded: [id number] 09:34AM Heart Rate60, L Radial Afjrumuz217, LUE, Sitting Fxhufjwys00, LUE, Sitting Height5 ft 11 in Nzolsu983 lb BMI Navsulxxsv70.17 kg/m2 BSA Calculated2.12 Tobacco Useb) No PHQ-2 [...] carotid pulse (more content not included)... Normal path intelligence Tobacco Screening.on 022 Adult depression screening assessment No [facility] [employer] [place] [address] DO Work Phone: Fall risk assessment a) No falls within the last year [facility] [employer] [place] 250 DO Work Phone: Tobacco use status [facility] b) No [facility] [employer] [place] 250 DO Work Phone: CT LUNG [...] OSIRIS JIMENEZ Date: 2022-02-03 13:27 Normal [facility] HEMOGLOBINon 12-23-2021 Hemoglobin (Bld) [Mass/Vol] 14.7 g/dL Normal 14.0-18.0 [facility] Comment on above: Performed By: #### H GB #### [facility] [address] [place], [place] [address] Dr. 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 12/24/2021 11:07:00 Normal [facility] Activated partial thrombopla stin time (aPTT) in platelet poor plasma by coagulation aOrdered By: Angel Betancorut on 11-06-2021 aPTT Coag (PPP) [Time] 34.6 s 25.1-36.5 [facility] - CoagulationOrde red By: Angel Betancourt on 11-06-2021 PT Coag (PPP) [Time] 12.8 s 9.0-12.9 [facility] No Panel Informationon 11-06 1.1\S\1.1 Normal [facility] 250 DO Work Phone: Comment on above: [...] 250 DO Work Phone: 34.6\S\34.6 Normal 25.1-36.5 [facility] 250 DO Work Phone: Comment on above: PERFORMED BY:[place] [address] [address] [facility] [phone] MEDICAL DIRECTORROSCOE LEMUS M.D. Platelet poor plasma interna tional normalized ratio (INR) by coagulation assay (relatOrdered By: Angel Betancourt on 11-06-2021 INR Coag (PPP) [Relative time] 1.1 {INR} [facility] Comment on above: INR Therapeutic Rang e [...] Radiologyon 11-06-2021 Portable XR Chest Views Normal [facility] [place] [address] DO Work Phone: XR Chest 2 Views Normal [facility] [place] [address] DO Work Phone: COVID-19 Positive/NegativeOr dered By: Angel Betancourt on 11-04-2021 SARS-CoV-2 (COVID-19) N gene OG+probe Ql (Resp) Negative Negative [facility] Comment on above: Testing for SARS-CoV -2 by RT-PCRThis test was developed and its performance characteristics determined by [employer] and validated at the [facility]. This test has not been FDA cleared [...] developed and its performance characteristics determined by [employer]) and validated at the [facility]. This test has not been FDA cleared [...] 10-29-2021 Basophils (Bld) [#/Vol] 0.0 10*3/uL 0.0-0.2 [facility] Basophils/100 WBC Auto (Bld) Ordered By: Angel Betancourt on 10-29-2021 Basophils/100 WBC (Bld) 0.6 % [facility] Blood hemoglobin measurement (mass/volume)Ordered By: Angel Betancourt on 10-29-2021 Hemoglobin (Bld) [Mass/Vol] 14.9 g/dL 13.0-17.0 [facility] Blood leukocytes automated c ount (number/volume)Ordered By: Angel Betancourt on 10-29-2021 WBC (Bld) [#/Vol] 7.6 10*3/uL 4.5-11.0 [facility] Creatinine and Glomerular fi ltration rate.predicted panel (S/P/Bld)Ordered By: Angel Betancourt on 10-29-2021 Creatinine [Mass/Vol] 0.83 mg/dL 0.64-1.27 [facility] Eosinophils Auto (Bld) [#/Vo l]Ordered By: Angel Betancourt on 10-29-2021 Eosinophils (Bld) [#/Vol] 0.2 10*3/uL 0.0-0.45 [facility] Eosinophils/100 WBC Auto (Bl d)Ordered By: Angel Betancourt on 10-29-2021 Eosinophils/100 WBC (Bld) 2.9 % [facility] Erythrocyte distribution wid th Auto (RBC) [Ratio]Ordered By: Angel Betancourt on 10-29-2021 Erythrocyte distribution width (RBC) [Ratio] 14.8 % 12.0-14.8 [facility] Estimated glomerular filtrat ion rate (GFR) non- AmericanOrdered By: Angel Betancourt on 10-29-2021 GFR/1.73 sq M.predicted among non-blacks MDRD (S/P/Bld) [Vol rate/Area] > 60 mL/Min [facility] Hematocrit Auto (Bld) [Volum e fraction]Ordered By: Angel Betancourt on 10-29-2021 Hematocrit (Bld) [Volume fraction] 45.8 % 38.8-50.0 [facility] - Hematology and Cell countsOrdered By: Angel Betancourt on 10-29-2021 Nucleated RBC/100 WBC (Bld) [Ratio] 0.1 % 0-0.5 [facility] Lymphocytes Auto (Bld) [#/Vo l]Ordered By: Angel Betancourt on 10-29-2021 Lymphocytes (Bld) [#/Vol] 1.7 10*3/uL 1.00-4.8 [facility] Lymphocytes/100 WBC Auto (Bl d)Ordered By: Angel Betancourt on 10-29-2021 Lymphocytes/100 WBC (Bld) 21.8 % [facility] MCH Auto (RBC) [Entitic mass ]Ordered By: Angel Betancourt on 10-29-2021 MCH (RBC) [Entitic mass] 30.1 pg 27.5-35.2 [facility] MCHC Auto (RBC) [Mass/Vol]Or dered By: Angel Betancourt on 10-29-2021 MCHC (RBC) [Mass/Vol] 32.6 g/dL 32.5-35.6 [facility] MCV Auto (RBC) [Entitic vol] Ordered By: Angel Betancourt on 10-29-2021 MCV (RBC) [Entitic vol] 92.3 fL 83.5-101 [facility] Monocytes Auto (Bld) [#/Vol] Ordered By: Anegl Betancourt on 10-29-2021 Monocytes (Bld) [#/Vol] 0.6 10*3/uL 0.0-0.8 [facility] Monocytes/100 WBC Auto (Bld) Ordered By: Angel Betancourt on 10-29-2021 Monocytes/100 WBC (Bld) 7.6 % [facility] Neutrophils Auto (Bld) [#/Vo l]Ordered By: Angel Betancourt on 10-29-2021 Neutrophils (Bld) [#/Vol] 5.1 10*3/uL 1.8-7.7 [facility] Neutrophils/100 WBC Auto (Bl d)Ordered By: Angel Betancourt on 10-29-2021 Neutrophils/100 WBC (Bld) 67.1 % [facility] No Panel InformationOrdered By: Angel Betancourt on 10-29-2021 Estimated GFR () > 60 mL/Min [facility] Comment on above: GFR estimated refere nce range: According to KDOQI guidelines, <60 ml/min/1.73m2 is sufficient to diagnose a patient with chronic kidney disease. Pharmacy Creatinine Clearance (Chem N/A [facility] No Panel Informationon 10-29 9.6\S\9.6 Normal 8.2-10.2 [facility] [address] DO Work Phone: Comment on above: PERFORMED BY:[address] [address] [address] [place], [place] [phone] MEDICAL DIRECTORROSCOE LEMUS M.D. 23.9\S\23.9 Normal 22.0-30.0 [facility] 600 DO Work Phone: 105\S\105 Normal 95-114 [facility] 600 DO Work Phone: 3.5\S\3.5 Normal 3.5-5.1 [facility] 600 DO Work Phone: 139\S\139 Normal 136-146 [facility] 600 DO Work Phone: > 60 Normal [facility] k 600 DO Work Phone: Comment on above: GFR estimated refere nce range: According to KDOQI guidelines, <60 ml/min/1.73m2 is sufficient to diagnose a patient with chronic kidney disease. 0.83\S\0.83 Normal 0.64-1.27 [facility] [address] DO Work Phone: 14\S\14 Normal 9-23 [facility] 600 DO Work Phone: 117\S\117 above high threshold 70-100 [facility] 600 DO Work Phone: Comment on above: Random Glucose Refer ence Range is dependent on time and content of last meal. Glucose of more than 200 mg/dL in a nonstressed, ambulatory subject supports the diagnosis of Diabetes Mellitus. ADA recommended reference range 67.1\S\67.1 Normal . [facility] 600 DO Work Phone: 9.0\S\9.0 Normal 6.6-10.1 [facility] [address] DO Work Phone: 196\S\196 Normal 150-450 [facility] [address] DO Work Phone: 14.8\S\14.8 Normal 12.0-14.8 [facility] [address] DO Work Phone: 32.6\S\32.6 Normal 32.5-35.6 [facility] [address] DO Work Phone: 30.1\S\30.1 Normal 27.5-35.2 [facility] [address] DO Work Phone: 5.1\S\5.1 Normal 1.8-7.7 [facility] [address] DO Work Phone: 0.1\S\0.1 Normal 0-0.5 [facility] [address] DO Work Phone: 0.6\S\0.6 Normal 0.0-0.8 [facility] 600 DO Work Phone: 2.9\S\2.9 Normal . [facility] 600 DO Work Phone: 7.6\S\7.6 Normal 4.1-10.5 [facility] 600 DO Work Phone: 21.8\S\21.8 Normal . [facility] [facility] 600 DO Work Phone: 0.0\S\0.0 Normal 0.0-0.2 [facility] 600 DO Work Phone: Comment on above: PERFORMED BY:[facility] [place], [place] [phone] MEDICAL DIRECTORROSCOE LEMUS M.D. 0.2\S\0.2 Normal 0.0-0.45 [facility] 600 DO Work Phone: 1.7\S\1.7 Normal 1.00-4.8 [facility] 600 DO Work Phone: 92.3\S\92.3 Normal 83.5-101 [facility] 600 DO Work Phone: 45.8\S\45.8 Normal 38.8-50.0 [facility] 600 DO Work Phone: 14.9\S\14.9 Normal 13.0-17.0 [facility] 600 DO Work Phone: 4.96\S\4.96 Normal 3.90-5.60 [facility] 600 DO Work Phone: Platelet mean volume Auto (B ld) [Entitic vol]Ordered By: Angel Betancourt on 10-29-2021 Platelet mean volume (Bld) [Entitic vol] 9.0 fL 6.6-10.1 [facility] Platelets Auto (Bld) [#/Vol] Ordered By: Angel Betancourt on 10-29-2021 Platelets (Bld) [#/Vol] 196 10*3/uL 150-450 [facility] RBC Auto (Bld) [#/Vol]Ordere d By: Angel Betancourt on 10-29-2021 RBC (Bld) [#/Vol] 4.96 10*6/uL 3.90-5.60 [facility] Serum or plasma calcium ozzie urement (mass/volume)Ordered By: Angel Betancourt on 10-29-2021 Calcium [Mass/Vol] 9.6 mg/dL 8.2-10.2 [facility] Serum or plasma chloride tatyana surement (moles/volume)Ordered By: Angel Betancourt on 10-29-2021 Chloride [Moles/Vol] 105 mmol/L 95-114 [facility] Serum or plasma glucose ozzie urement (mass/volume)Ordered By: Angel Betancourt on 10-29-2021 Glucose [Mass/Vol] 117 mg/dL 70-100 [facility] Comment on above: ADA recommended refe rence [...] on 10-29-2021 Potassium [Moles/Vol] 3.5 mmol/L 3.5-5.1 [facility] Serum or plasma sodium measu rement (moles/volume)Ordered By: Angel Betancourt on 10-29-2021 Sodium [Moles/Vol] 139 mmol/L 136-146 [facility] Serum or plasma total carbon dioxide measurement (moles/volume)Ordered By: Angel Betancourt on 10-29-2021 CO2 [Moles/Vol] 23.9 mmol/L 22.0-30.0 [facility] Serum or plasma urea nitroge n measurement (mass/volume)Ordered By: Angel Betancourt on 10-29-2021 Urea nitrogen [Mass/Vol] 14 mg/dL 04-10 [facility] Office Visit (Cardiology)on 10-24-2021 Follow-up visit Diagnoses/Problems [...] Status: Hold For - Scheduling Requested for: [id number] Pacemaker Generator Change; Status:Active; Requested for:24Oct2021; SocHx: Former smoker Tobacco Use Screening; Status:Complete; Done: 24Oct2021 Patient Instructions By signing my name below, I, Marivel Monae LPN ,Lucita, attest that this documentation has been prepared [...] MG O (more content not included)... Normal path intelligence Tobacco Screening.on Adult depression screening assessment No [facility] [employer] 250 DO Work Phone: Fall risk assessment a) No falls within the last year [facility] [employer] 250 DO Work Phone: Tobacco use status [facility] b) No [facility] [employer] 250 DO Work Phone: Vital Signs Date Time Vital Sign Value Performing Clinician Facility 12-06-2023 11:35-0400 Body height 180.34 cm [facility] 12-06-2023 11:35-0400 Body mass index (BMI) [Ratio] 26.6 kg/m2 [facility] 12-06-2023 11:35-0400 Body weight 86.74 kg [facility] 12-06-2023 11:35-0400 Diastolic blood pressure 65 mm[Hg] [facility] 12-06-2023 11:35-0400 Heart rate 72 /min [facility] 12-06-2023 11:35-0400 Respiratory rate 16 /min [facility] 12-06-2023 11:35-0400 Systolic blood pressure 98 mm[Hg] [facility] 06-14-2023 08:26-0500 Body height 180.3 cm Angel Betancourt MD Work Phone: [facility] 06-14-2023 08:26-0500 Body mass index (BMI) [Ratio] 27.89 kg/m2 Angel Betancourt MD Work Phone: [facility] 06-14-2023 08:26-0500 Body weight 90.72 kg Angel Betancourt MD Work Phone: [facility] 06-14-2023 08:26-0500 Diastolic blood pressure 64 mm[Hg] Angel Betancourt MD Work Phone: [facility] 06-14-2023 08:26-0500 Heart rate 86 /min Angel Betancourt MD Work Phone: [facility] 06-14-2023 08:26-0500 Systolic blood pressure 98 mm[Hg] Angel Betancourt MD Work Phone: [facility] 04-05-2023 11:30-0400 Body height 180.34 cm Ferny Ball Other [employer] Other 04-05-2023 11:30-0400 Body mass index (BMI) [Ratio] 26.66 kg/m2 Ferny Ball Other [employer] Other 04-05-2023 11:30-0400 Body weight 86.73 kg Ferny Ball Other [employer] Other 04-05-2023 11:30-0400 Diastolic blood pressure 59 mm[Hg] Ferny Ball Other [employer] Other 04-05-2023 11:30-0400 Respiratory rate 12 /min Ferny Ball Other [employer] Other 04-05-2023 11:30-0400 Systolic blood pressure 92 mm[Hg] Ferny Ball Other [employer] Other 01-13-2023 13:14-0400 Blood Pressure Location Silas CATALAN [facility] 01-13-2023 13:14-0400 Diastolic blood pressure 62 mm[Hg] Silas CATALAN [facility] 01-13-2023 13:14-0400 Heart rate 76 /min Silas DANEILL [facility] 01-13-2023 13:14-0400 Respiratory rate 16 /min Silas CATALAN [facility] 01-13-2023 13:14-0400 Systolic blood pressure 110 mm[Hg] Silas CATALAN [facility] 09-18-2022 14:52-0500 Body height 180.34 cm Caesar Glover Work Phone: [facility] 250 DO Work Phone: 09-18-2022 14:52-0500 Body mass index (BMI) [Ratio] 27.48 kg/m2 Caesar Glover Work Phone: [facility] 250 DO Work Phone: 09-18-2022 14:52-0500 Body surface area Derived from formula 2.1 m2 Caesar Glover Work Phone: [facility] 250 DO Work Phone: 09-18-2022 14:52-0500 Body weight 89.36 kg Caesar Glover Work Phone: [facility] 250 DO Work Phone: 09-18-2022 14:52-0500 Diastolic blood pressure 78 mm[Hg] Caesar Glover Work Phone: [facility] 250 DO Work Phone: 09-18-2022 14:52-0500 Heart rate 66 /min Caesar Glover Work Phone: [facility] 250 DO Work Phone: 09-18-2022 14:52-0500 Systolic blood pressure 122 mm[Hg] Caesar Glover Work Phone: [facility] 250 DO Work Phone: 08-10-2022 11:41-0500 65 1 Caesar Glover Work Phone: [facility] Work Phone: Comment on above: [id number] 07-02-2022 14:41-0500 56 1 Caesar Glover Work Phone: [facility] 250 DO Work Phone: Comment on above: [facility] 06-18-2022 12:59-0500 Body height 180.34 cm Caesar Glover Work Phone: [facility] 250 DO Work Phone: 06-18-2022 12:59-0500 Body mass index (BMI) [Ratio] 27.2 kg/m2 Caesar Glover Work Phone: [facility] 250 DO Work Phone: 06-18-2022 12:59-0500 Body surface area Derived from formula 2.09 m2 Caesar Glover Work Phone: [facility] 250 DO Work Phone: 06-18-2022 12:59-0500 Body weight 88.45 kg Caesar Glover Work Phone: [facility] 250 DO Work Phone: 06-18-2022 12:59-0500 Diastolic blood pressure 76 mm[Hg] Caesar Glover Work Phone: [facility] 250 DO Work Phone: 06-18-2022 12:59-0500 Heart rate 68 /min Caesar Glover Work Phone: [facility] 250 DO Work Phone: 06-18-2022 12:59-0500 Systolic blood pressure 134 mm[Hg] Caesar Glover Work Phone: [facility] 250 DO Work Phone: 04-06-2022 08:55-0400 Body height 180.34 cm Caesar Glover Work Phone: [facility] 250 DO Work Phone: 04-06-2022 08:55-0400 Body mass index (BMI) [Ratio] 28.03 kg/m2 Caesar Glover Work Phone: [facility] 250 DO Work Phone: 04-06-2022 08:55-0400 Body surface area Derived from formula 2.11 m2 Caesar Glover Work Phone: [facility] 250 DO Work Phone: 04-06-2022 08:55-0400 Body weight 91.17 kg Caesar Glover Work Phone: [facility] 250 DO Work Phone: 04-06-2022 08:55-0400 Diastolic blood pressure 92 mm[Hg] Caesar Glover Work Phone: [facility] 250 DO Work Phone: 04-06-2022 08:55-0400 Heart rate 80 /min Caesar Glover Work Phone: [facility] 250 DO Work Phone: 04-06-2022 08:55-0400 Systolic blood pressure 170 mm[Hg] Caesar Glover Work Phone: [facility] 250 DO Work Phone: 03-04-2022 12:00-0400 52 1 Caesar Glover Work Phone: [facility] [address] [place] Work Phone: Comment on above: [id number] 03-03-2022 09:34-0400 Body height 180.34 cm Caesar Glover Work Phone: [facility] 250 DO Work Phone: 03-03-2022 09:34-0400 Body mass index (BMI) [Ratio] 28.17 kg/m2 Caesar Glover Work Phone: [facility] 250 DO Work Phone: 03-03-2022 09:34-0400 Body surface area Derived from formula 2.12 m2 Caesar Glover Work Phone: [facility] 250 DO Work Phone: 03-03-2022 09:34-0400 Body weight 91.63 kg Caesar Glover Work Phone: [facility] 250 DO Work Phone: 03-03-2022 09:34-0400 Diastolic blood pressure 88 mm[Hg] Caesar Glover Work Phone: [facility] 250 DO Work Phone: 03-03-2022 09:34-0400 Heart rate 60 /min Caesar Glover Work Phone: [facility] 250 DO Work Phone: 03-03-2022 09:34-0400 Systolic blood pressure 136 mm[Hg] Caesar Glover Work Phone: [facility] 250 DO Work Phone: 11-13-2021 16:16-0400 Body height 180.34 cm Caesar Glover Work Phone: [facility] 250 DO Work Phone: 11-13-2021 16:16-0400 Body mass index (BMI) [Ratio] 27.48 kg/m2 Caesar Glover Work Phone: [facility] 250 DO Work Phone: 11-13-2021 16:16-0400 Body surface area Derived from formula 2.1 m2 Caesar Glover Work Phone: [facility] 250 DO Work Phone: 11-13-2021 16:16-0400 Body temperature 98.1 [degF] Caesar Glover Work Phone: [facility] 250 DO Work Phone: 11-13-2021 16:16-0400 Body weight 89.36 kg Caesar Glover Work Phone: [facility] 250 DO Work Phone: 11-13-2021 16:16-0400 Diastolic blood pressure 72 mm[Hg] Caesar Glover Work Phone: [facility] 250 DO Work Phone: 11-13-2021 16:16-0400 Heart rate 72 /min Caesar Glover Work Phone: [facility] 250 DO Work Phone: 11-13-2021 16:16-0400 Systolic blood pressure 136 mm[Hg] Caesar Glover Work Phone: [facility] 250 DO Work Phone: 11-06-2021 11:23-0400 Diastolic blood pressure 51 mm[Hg] MD Caesar Glover Work Phone: [facility] 11-06-2021 11:23-0400 Heart rate 60 /min MD Caesar Glover Work Phone: [facility] 11-06-2021 11:23-0400 Respiratory rate 20 /min MD Caesar Glover Work Phone: [facility] 11-06-2021 11:23-0400 SaO2% (BldA) [Mass fraction] 93 % MD Caesar Glover Work Phone: [facility] 11-06-2021 11:23-0400 Systolic blood pressure 104 mm[Hg] MD Caesar Glover Work Phone: [facility] 11-06-2021 09:38-0400 Inhaled oxygen flow rate 8 L/min MD Caesar Glover Work Phone: [facility] 11-06-2021 08:26-0400 Body height 176.53 cm MD Caesar Glover Work Phone: [facility] 11-06-2021 08:26-0400 Body mass index (BMI) [Ratio] 28.5 kg/m2 MD Caesar Glover Work Phone: [facility] 11-06-2021 08:26-0400 Body weight 89 kg MD Caesar Glover Work Phone: [facility] 11-06-2021 07:29-0400 Body temperature 98.1 [degF] MD Caesar Glover Work Phone: [facility] 10-24-2021 13:51-0400 Diastolic blood pressure 82 mm[Hg] Caesar Glover Work Phone: [facility] 250 DO Work Phone: 10-24-2021 13:51-0400 Systolic blood pressure 156 mm[Hg] Caesar Glover Work Phone: [facility] 250 DO Work Phone: 10-24-2021 13:47-0400 Body height 180.34 cm Caesar Glover Work Phone: [facility] 250 DO Work Phone: 10-24-2021 13:47-0400 Body mass index (BMI) [Ratio] 27.75 kg/m2 Caesar Glover Work Phone: [facility] 250 DO Work Phone: 10-24-2021 13:47-0400 Body surface area Derived from formula 2.1 m2 Caesar Glover Work Phone: [facility] 250 DO Work Phone: 10-24-2021 13:47-0400 Body weight 90.27 kg Caesar Glover Work Phone: [facility] 250 DO Work Phone: 10-24-2021 13:47-0400 Diastolic blood pressure 88 mm[Hg] Caesar Glover Work Phone: [facility] 250 DO Work Phone: 10-24-2021 13:47-0400 Heart rate 68 /min Caesar Glover Work Phone: [facility] 250 DO Work Phone: 10-24-2021 13:47-0400 Systolic blood pressure 162 mm[Hg] Caesar Glover Work Phone: [facility] 250 DO Work Phone: Encounters Encounter Date Encounter Type Care Provider Facility Start: 03-08-2024 End: 03-08-2024 Patient encounter procedure DO Ferny Ball Work Phone: [facility] Start: 03-08-2024 End: 03-08-2024 ambulatory DO Ferny Ball Work Phone: [facility] Work Phone: Start: 03-06-2024 Non-patient / Non-visit DO Jose garcia Ball Work Phone: [facility] Physician [facility] Work Phone: Start: 12-06-2023 End: 12-06-2023 ambulatory [facility] Work Phone: Start: 12-06-2023 End: 12-06-2023 Patient encounter procedure [facility] Work Phone: Start: 06-14-2023 End: 06-14-2023 [address]EL [address]RT [facility] Start: 06-14-2023 End: 06-14-2023 Office outpatient visit 25 minutes Angel Betancourt MD Work Phone: [facility] Comment on above: Coronary artery dise ase involving hop[place] coronary artery of [place] heart without angina pectoris (Primary Dx); CHB (complete heart block) (CMS/HCC); S/P placement of cardiac pacemaker; Mixed hyperlipidemia; Essential hypertension; Nonrheumatic aortic valve stenosis; Paroxysmal atrial fibrillation (CMS/HCC); Overweight (BMI 25.0-29.9) Start: 04-05-2023 End: 04-05-2023 ambulatory Ferny Christopher Other [employer] Other Start: 04-05-2023 Office outpatient vi sit 25 minutes Ferny White [facility] Start: 03-23-2023 End: 03-23-2023 ambulatory Caesar Glover Other [employer] Other Start: 03-23-2023 Telephone encounter Caesar Glover [facility] Start: 03-08-[address] Caesar Glover Facility:[id number] Start: 03-08-2023 End: 03-08-2023 ambulatory MD Caesar Glover Work Phone: [facility] Work Phone: Start: 03-08-2023 End: 03-08-2023 Patient encounter procedure MD Caesar Glover Work Phone: [facility] Start: 03-03-2023 End: 03-04-2023 [facility]ulatory [facility] Start: 03-01-2023 End: 03-01-2023 ambulatory Caesar Glover Other [employer] Other Start: 03-01-2023 Telephone encounter Caesar Glover [facility] Start: 02-17-2023 End: 02-17-2023 ambulatory Ferny White Other [employer] [facility] [employer] Other Start: 02-17-2023 Telephone encounter Ferny Bal [facility] Start: 02-11-2023 End: 02-11-2023 ambulatory Ferny White Other [employer] Other Start: 02-11-2023 Telephone encounter Ferny Bal [facility] Start: 02-10-2023 End: 02-11-2023 ambulatory Silas R NILL Facility:[id number] Start: 01-22-2023 Image Encounter Caesar Glover Work Phone: [facility] 250 DO Work Phone: Start: 01-13-2023 End: 01-14-2023 ambulatory Silas R NILL Facility:[facility] Start: 01-13-2023 End: 01-13-2023 Patient encounter procedure Silas R NILL [facility] N[facility] [place] Start: 01-07-2023 ambulatory Silas NILL Facility:[facility] Start: 12-28-2022 ambulatory Silas NILL Facility:[facility] [place] Start: 12-24-2022 End: 12-24-2022 ambulatory Ferny White Other [employer] Other Start: 12-24-2022 Telephone encounter Ferny White [facility] Start: 12-04-[address] Caesar Glover Facility:[id number] Start: 10-26-2022 Rx Renewal Caesar Glover Work Phone: [facility] 250 DO Work Phone: Start: 09-18-2022 FUV, Provider: Angel Betancourt, Status: Pen, Time: 2:50 PM Caesar Glover Work Phone: [facility] 600 DO Work Phone: Start: 09-18-2022 Office outpatient vi sit 25 minutes Caesar Glover Work Phone: [facility] 250 DO Work Phone: Start: 09-18-[address] Angel Betancourt Facility: Start: 09-16-2022 Telephone encounter Caesar owens Work Phone: [facility] 600 DO Work Phone: Start: 09-03-2022 End: 09-03-2022 ambulatory MD Caesar Glover Work Phone: [facility] Work Phone: Start: 09-03-2022 End: 09-03-2022 Patient encounter procedure MD Caesar Glover Work Phone: [facility] Start: 09-03-[address] Caesar Glover Facility:[id number] Start: 08-14-2022 ambulatory [facility] Facility:H 1 Start: 08-13-[address] Caesar Glover Facility:[facility] Start: 08-13-[address] Caesar Glover Facility:[facility] Start: 08-10-2022 End: 08-11-[address] DOCTOR DOUGHERTY Facility: Start: 07-30-2022 AUDIT Caesar Glover Work Phone: [facility] Work Phone: Start: 07-30-2022 End: 07-31-[address] CAESAR GLOVER Facility: Start: 07-08-2022 Patient encounter procedure Caesar Glover Work Phone: [facility] 250 DO Work Phone: Start: 07-02-2022 End: 07-03-[address] ANGEL BETANCOURT Facility: Start: 06-18-2022 Office outpatient vi sit 25 minutes Caesar Glover Work Phone: [facility] 250 DO Work Phone: Start: 06-18-[address] Angel Betancourt II Facility: Start: 06-03-[address] Caesar Glover Facility:[id number] Start: 06-03-2022 End: 06-03-2022 ambulatory MD Caesar Glover Work Phone: [facility] Work Phone: Start: 06-03-2022 End: 06-03-2022 Patient encounter procedure MD Caesar Glover Work Phone: [facility] Start: 05-14-2022 Chart Update Caesar Glover Work Phone: [facility] 600 DO Work Phone: Start: 05-14-2022 Adult health examination Basil [employer] Other [facility] [employer] Other Start: 05-07-[address] ANGEL MORENO II Facility:[id number] Start: 04-06-2022 Office outpatient vi sit 25 minutes Caesar Glover Work Phone: [facility] 250 DO Work Phone: Start: 04-06-[address] Angel Betancourt II Facility: Start: 03-04-2022 Patient encounter procedure Caesar Glover Work Phone: [facility] 250[address] [place] Work Phone: Start: 03-04-2022 STRESS NUC, [facility] : [facility],[id number], Status: Pen, Time: 12:00 PM Caesar Glover Work Phone: [facility] 250 DO Work Phone: Start: 03-04-[address] ANGEL MORENO II Facility:[id number] Start: 03-03-2022 Office outpatient vi sit 25 minutes Caesar Glover Work Phone: [facility] 250 DO Work Phone: Start: 02-26-2022 End: 02-26-2022 Patient encounter procedure MD Caesar Glover Work Phone: [facility] Start: 02-02-2022 End: 02-03-2022 ambulatory [facility] Facility:H1 Start: 12-23-2021 End: 12-24-2021 ambulatory [facility] Facility: Start: 12-22-2021 End: 12-22-2021 Patient encounter procedure MD Caesar Glover Work Phone: [facility] Start: 11-13-2021 Postop follow up vis it related to original px Caesar Glover Work Phone: [facility] 250 DO Work Phone: Start: 11-06-2021 SURGNON, Provider: Angel Betancourt, Status: Pen, Time: 9:00 AM Caesar Glover Work Phone: [facility] 250 DO Work Phone: Start: 11-06-2021 End: 11-06-2021 Admission to same day surgery center MD Caesar Glover Work Phone: [facility] [place] Start: 11-05-2021 Chart Update Caesar Glover Work Phone: [facility] 250 DO Work Phone: Start: 11-04-2021 End: 11-04-2021 Patient encounter procedure MD Caesar Glover Work Phone: [facility]-Pre[facility]Surgical [facility] Start: 10-30-2021 Chart Update Caesar Glover Work Phone: [facility] 600 DO Work Phone: Start: 10-29-2021 End: 10-29-2021 Patient encounter procedure MD Caesar Glover Work Phone: [facility] Start: 10-24-2021 Office outpatient ne w 60 minutes Caesar Glover Work Phone: -[facility] 250 DO Work Phone: Start: 09-19-2021 End: 09-19-2021 Patient encounter procedure MD Caesar Glover Work Phone: [facility] Start: 06-23-2021 End: 06-23-2021 Patient encounter procedure MD Caesar Glover Work Phone: [facility] Procedures Date Procedure Procedure Detail Performing Clinician Start: 02-10-2023 Colonoscopy Angel Moreno MD Work Phone: Start: 11-06-2021 Implantation of card iac pacemaker MD Caesar Glover Work Phone: Start: 11-06-2021 End: 11-06-2021 Plain chest X-ray MD Caesar Glover Work Phone: Start: 11-08-2018 Screening for malign ant neoplasm of prostate Ferny Ball Other Angioplasty of blood vessel Silas CATALAN Colonoscopy Silas CATALAN Depression screening Benjami n Christopher Other Implantation of card iac pacemaker Silas CATALAN Insertion of pacemak er pulse generator Caesar Glover Work Phone: Percutaneous translu mahnaz coronary angioplasty Caesar Glover Work Phone: Placement of stent i n cardiac conduit Silas CATALAN Screening for malign ant neoplasm of prostate Ferny Ball Other Total colonoscopy Caesar owens Work Phone: Plan of Treatment Date Care Activity Detail Author Start: 02-10-2033 Screening for malignant neoplasm of colon [facility] Start: 03-07-2024 End: 03-07-2024 Patient encounter procedure 03/07/2024 9:40 AM EDT Office Visit [place] [id number] [facility] [address] [place] [address] Angel Betancourt MD [address] [facility], [address] [place] [address] [facility] Start: 06-25-2023 COVID-19 Vaccine (5 - Pfizer series) COVID-19 Vaccine (5 - Pfizer series) [facility] Start: 05-28-2023 FUV, Provider: Angel Betancourt, Status: Pen, Time: 2:50 PM FUV, Provider: Angel Betancourt, Status: Pen, Time: 2:50 [facility] Work Phone: Start: 01-08-2023 FUV, Provider: Angel Betancourt, Status: Pen, Time: 2:30 PM FUV, Provider: Angel Betancourt, Status: Pen, Time: 2:30 [facility] Work [facility]: Start: 08-14-2022 ECHO, Provider: [facility] ULTRASOUND 01,[id number], Status: Pen, Time: 10:45 AM ECHO, Provider: [facility] ULTRASOUND 01,[id number], Status: Pen, Time: 10:[address] [facility] Work Phone: Start: 08-13-2022 PST, Provider: KATIE BENTLEY 6TH FLR PFT WALKWAY,PULM, Status: Pen, Time: 2:30 PM PST, Provider: KATIE BENTLEY 6TH FLR PFT WALKWAY,PULM, Status: Pen, Time: 2:30 PM [facility] Work Phone: Start: 08-13-2022 PFT, Provider: KATIE BENTLEY 6TH FLR PFT RM 2,PULM, Status: Pen, Time: 1:30 PM PFT, Provider: KATIE BENTLEY 6TH FLR PFT RM 2,PULM, Status: Pen, Time: 1:30 PM [facility] Work Phone: Start: 08-13-2022 ABG, Provider: KATIE BENTLEY 6TH FLR PFT RM 2,PULM, Status: Pen, Time: 1:15 PM ABG, Provider: KATIE BENTLEY 6TH FLR PFT RM 2,PULM, Status: Pen, Time: 1:15 PM [facility] Work Phone: Start: 06-18-2022 FUV, Provider: Angel Betancourt, Status: Pen, Time: 1:00 PM FUV, Provider: Angel Betancourt, Status: Pen, Time: 1:[address] [facility] Work Phone: Start: 05-07-2022 CAROTID, Provider: BERTRAND [facility] ULTRASOUND 01,[id number], Status: Pen, Time: 10:45 AM CAROTID, Provider: BERTRAND [facility] ULTRASOUND 01,[id number], Status: Pen, Time: 10:45 AM -[facility] 250 DO Work Phone: Start: 04-06-2022 FUV, Provider: Angel Betancourt, Status: Pen, Time: 8:50 AM FUV, Provider: Angel Betancourt, Status: Pen, Time: 8:50 AM -[facility] 250 DO Work Phone: Start: 03-03-2022 FUV, Provider: Angel Betancourt, Status: Pen, Time: 9:20 AM FUV, Provider: Angel Betancourt, Status: Pen, Time: 9:20 AM -[facility] 250 DO Work Phone: Start: 11-13-2021 WOUND[place]LEY, Provider: ELLIE TINEO DYE MACHINE TENDER 1,[id number], Status: Pen, Time: 9:30 AM [place], Provider: ELLIE TINEO DYE MACHINE TENDER 1,[id number], Status: Pen, Time: 9:30 AM -[facility] 250 DO Work Phone: Start: 11-07-2021 Plain chest X-ray XR chest 2V* [facility] Start: 11-06-2021 [facility], Provider: Angel Betancourt, Status: Pen, Time: 9:00 AM [facility], Provider: Angel Betancourt, Status: Pen, Time: 9:00 AM [facility] 250 DO Work Phone: Start: 2012 Abdominal aortic aneurysm screening Abdominal Aortic Aneurysm (AAA) Screening [facility] Start: 1997 Zoster Vaccines (1 of 2) Zoster Vaccines (1 of 2) [facility] Start: 1969 DTaP/Tdap/Td Vaccines (1 - Tdap) DTaP/Tdap/Td Vaccines (1 - Tdap) [facility] Start: 1965 Hepatitis C screening Hepatitis C Screening [facility] Start: 1947 Lipid panel Lipid Panel [facility] Start: 1947 Medicare Annual Wellness Visit Medicare Annual Wellness Visit (AWV) [facility] Start: 1947 Screening for malignant neoplasm of colon [facility] Comprehensive metabo lic 2000 panel - Serum or Plasma [facility] Immunizations Immunization Date Immunization Notes Care Provider Fa cility 04-30-2023 influenza virus vaccine, unspecified formulation Angel Betancourt MD Work Phone: [facility] Work Phone: 05-18-2022 Pfizer COVID-19 Vac Bivalent 30 MCG/0.3ML Intramuscular Suspension Caesar Glover Work Phone: [facility] [place] Comment on above: Result Comment: 2022: [id number] 05-18-2022 Pfizer Purple Cap SARS-CoV-2 Angel Betancourt MD Work Phone: [facility] Work Phone: 04-21-2022 influenza virus vaccine, split virus (incl. purified surface antigen) Ferny White Other [facility] [employer] Other 04-21-2022 influenza virus vaccine, unspecified formulation [facility] 04-18-2022 influenza virus vaccine, unspecified formulation [facility] 04-18-2022 influenza, high dose seasonal, preservative-free Caesar E Glover Work Phone: [place] [address] DO Work Phone: Comment on above: Series: 05-21-2021 Pfizer-BioNTech COVID-19 Vacc 30 MCG/0.3ML Intramuscular Suspension Caesar E Glover Work Phone: [facility] Comment on above: Result Comment: 2022: [id number] 05-05-2021 influenza virus vaccine, split virus (incl. purified surface antigen) Ferny White Other [employer] [facility] [employer] Other 05-05-2021 influenza virus vaccine, unspecified formulation [facility] 05-05-2021 Seasonal trivalent influenza vaccine, adjuvanted, preservative free Caesar E Glover Work Phone: [place] [address] DO Work Phone: 11-13-2020 Pfizer-BioNTech COVID-19 Vacc 30 MCG/0.3ML Intramuscular Suspension Caesar E Glover Work Phone: [facility] 10-23-2020 Pfizer-BioNTech COVID-19 Vacc 30 MCG/0.3ML Intramuscular Suspension Caesar E Glover Work Phone: [facility] 04-01-2020 influenza virus vaccine, split virus (incl. purified surface antigen) Ferny White Other [employer] Other 04-01-2020 influenza virus vaccine, unspecified formulation [facility] 04-01-2020 influenza, injectabl e, quadrivalent, contains preservative Caesar E Glover Work Phone: [facility] 250 DO Work Phone: 05-05-2019 influenza virus vaccine, split virus (incl. purified surface antigen) Ferny White Other [employer] Other 05-05-2019 influenza virus vaccine, unspecified formulation [facility] 05-05-2019 influenza, injectabl e, quadrivalent, contains preservative Caesar E Glover Work Phone: [facility] 250 DO Work Phone: 05-02-2018 influenza virus vaccine, split virus (incl. purified surface antigen) Ferny White Other [facility] [employer] Other 05-02-2018 influenza virus vaccine, unspecified formulation [facility] 05-02-2018 Seasonal trivalent influenza vaccine, adjuvanted, preservative free Caesar E Glover Work Phone: [place] [address] DO Work Phone: 08-03-2017 diphtheria, tetanus toxoids and acellular pertussis vaccine, unspecified formulation Ferny White Other [facility] 08-03-2017 pneumococcal conjuga te vaccine, 13 valent Caesar E Glover Work Phone: [facility] 05-20-2017 influenza virus vaccine, split virus (incl. purified surface antigen) Ferny White Other [facility] [employer] Other 05-20-2017 influenza virus vaccine, unspecified formulation [facility] 05-20-2017 Seasonal trivalent influenza vaccine, adjuvanted, preservative free Caesar E Glover Work Phone: [facility] 250 DO Work Phone: 05-19-2016 influenza virus vaccine, unspecified formulation Caesar E Glover Work Phone: [facility] 250 DO Work Phone: 05-19-2015 influenza virus vaccine, unspecified formulation Caesar E Glover Work Phone: [facility] 250 DO Work Phone: 08-13-2014 pneumococcal polysaccharide vaccine, 23 valent Ferny White Other [facility] 04-23-2014 influenza virus vaccine, unspecified formulation Caesar Glover Work Phone: [facility] 250 DO Work Phone: 04-18-2014 pneumococcal polysaccharide vaccine, 23 valent Caesar Glover Work Phone: [facility] DO Work Phone: 05-22-2013 influenza virus vaccine, unspecified formulation [facility] Work Phone: influenza virus vaccine, unspecified formulation Caesar Glover Work Phone: [facility] 250 DO Work Phone: Comment on above: Apr 20122010 Payers Date Payer Category Payer Medicare [employer] MEDICARE [id number] 2023-Present [address] [place] [address] [id number] 2023 Private Health Insurance [id number] 2016 Medicare [id number] 1959 Medicare [id number] 1959 Private Health Insurance [id number] 1959 Self-pay [id number] 1947 Unknown [id number] [id number]. 8 1947 Unknown [id number] 2.16.840.1.607432.3.579.2. 1067 1947 Unknown [id number] 2.16.840.1.261659.3.579.2. 593 1947 Unknown [id number] 2.16.840.1.162945.3.579.2. 593 1947 Unknown [id number] 2.16.840.1.297334.3.579.2. 593 1947 Unknown [id number] 2.16.840.1.831240.3.579.2. 593 1947 Unknown [id number] 2.16.840.1.433635.3.579.2. 593 1947 Unknown [id number] 2.16.840.1.035266.3.579.2. 727 1947 Unknown [id number] 2.16.840.1.621260.3.579.2. 727 1947 Unknown [id number] 2..840.1.595170.3.579.2. 727 1947 Unknown [id number] 2.16.840.1.381883.3.579.2. 727 1947 Unknown [id number] 2.16.840.1.011587.3.579.2. 727 1947 Unknown [id number] 2.16.840.1.830721.3.579.2. 356 1947 Unknown [id number] 2.16.840.1.850626.3.579.2. 356 1947 Unknown [id number] 2.16.840.1.693984.3.579.2. 356 1947 Unknown [id number] 2.16.840.1.694067.3.579.2. 356 1947 Unknown [id number] 356 1945 Unknown [id number]. 356 1945 Unknown [id number]. 356 1945 Unknown [id number] 2.16.840.1.744204.3.579.2. 356 1945 Unknown [id number] 2.16.840.1.172392.3.579.2. 356 1945 Unknown [id number]. 1244 Unknown [id number] Unknown Unknown [id number]. 593 Unknown [id number]. 531 Social History Date Type Detail Facility Tobacco smoking stat [facility] Unknown if ever smoked [facility] Work Phone: Start: 1945 Sex Assigned At Male [facility] Start: 06-14-2023 Daily caffeine consumption, 2-3 servings a day Daily caffeine consumption, 2-3 servings a day -[facility] [address] DO Work Phone: Comment on above: Quit 2019 <1 ppd; 2 cups coffee in mor christal; Start: 10-29-2021 End: 11-06-2021 Tobacco smoking status WIIS Ex-smoker (finding) [facility] Start: 06-14-2023 Sex Assigned At F [facility] Tobacco smoking status Never Gener al Surgery Jenna History of tobacco use Current smoker [facility] Work Phone: History of tobacco use Cigarette Smoker [facility] Work Phone: Start: 06-14-2023 Alcohol intake Lifetime non-d susi (finding) [facility] Work Phone: Start: 1945 Sex Assigned At Not on file [facility] Work Phone: Start: 06-04-2023 End: 06-14-2023 Exposure to SARS-CoV-2 (event) Not sure [facility] Medical Equipment Procedure Code Equipment Code Equipment Origin al Text Equipment Identifier Dates Insertion, pacemaker Dual-chamber implantable pacemaker, rate-responsive ([id number] FDA Start: 11-06-2021 Goals Date Patient Goal Desired [...] day., Disp: , Rfl: fish oil concentrate (Amber-3) 120-180 mg capsule, Take 1 capsule (1 [...] Rfl: Assessment/Plan 1. 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 documented in this encounter [facility] Work Phone: 06-14-2023 Instructions Audelia Ramey [...] up per routine documented in this encounter [facility] Work Phone: 04-05-2023 Evaluation note Encounter [...] are maintaining regular scheduled appts with their guide setter. No bleeding complications Mar, ADEN (obstructive sleep apnea) (ICD-10 - G47.33) This patient is aware of the benefits associated with ADEN: With continued use, the patient reduces the risk for [place], CVA, HTN, cardiac dysrhythmias and sudden cardiac [...] tract symptoms (ICD-10 - N40.1) Symptoms tolerable. [employer] Other 09-05-2023 Evaluation note* Encounter Date Diagnosis Assessment Notes Treatment Notes Treatment Clinical Notes Mar, Primary hypertension (ICD-10 - I10) [employer] Other 08-02-2023 Evaluation note* Encounter Date Diagnosis Assessment Notes Treatment Notes Treatment Clinical Notes Feb, Mucopurulent chronic bronchitis (ICD-10 - J41.1) Feb, Pulmonary nodule (ICD-10 - R91.1) CT: lingula 2.1cm (following w/ Sam) LDCT: no suspicious nodules - 02/2023 [employer] Other 08-02-2023 Evaluation note* Encounter Date Diagnosis Assessment Notes Treatment Notes Treatment Clinical Notes Feb, Solitary pulmonary nodule (ICD-10 - R91.1) LDCT 02/02/2022 showed no change in lingula nodule @ 2.1cm. Resuming LDCT, due 01/2023. Feb, Mucopurulent chronic bronchitis (ICD-10 - J41.1) Feb, ADEN (obstructive sleep apnea) (ICD-10 - G47.33) [employer] Other 06-28-2023 NoteChief Complaint consultation for colonoscopy [...] stenosis, ADEN, referred for surveillance colonoscopy; last [id number] with diverticular disease; h/o colonoscopy in 2012 [...] sertraline, 50 mg, Oral, (more content not included)...[facility]Result Comment: Electronically Signed By: HOSSEIN BREAUX, Silas Wong\Date and Time Signed: 01/13/23 13:45 [id number] NoteFR COVID- [facility]Range:Negative Comments:Testing for SARS-CoV-2 by RT-PCR This test was developed and its performance characteristics determined by [employer], [employer]) and validated at the [facility]. This test has not been FDA cleared [...] the authorization is terminated or revoked sooner.PERFORMED BY:[facility] THOMAS CARR [id number] MEDICAL DIRECTORROSCOE LEMUS M.D. [facility] Gray DO Work Phone: Comment on above:Testing for SARS-CoV-2 by RT-PCR This test was developed and its performance characteristics determined by [employer] ([place]) and validated at the [facility]. This test has not been FDA cleared [...] the authorization is terminated or revoked sooner.PERFORMED BY:[place] [address] [place] [id number] MEDICAL DIRECTORROSCOE LEMUS M.D. 11-04-2021 NoteFR COVID-19 [facility]Range:Negative Comments:Testing for SARS-CoV-2 by RT-PCR This test was developed and its performance characteristics determined by [employer] ([place]) and validated at the [facility]. This test has not been FDA cleared [...] the authorization is terminated or revoked sooner.PERFORMED BY:[place] [address] [place] [id number] MEDICAL DIRECTORROSCOE LEMUS M.D. [facility] 250 DO Work Phone: Comment on above:Testing for SARS-CoV-2 by RT-PCR This test was developed and its performance characteristics determined by [employer] ([employer]) and validated at the [facility]. This test has not been FDA cleared [...] the authorization is terminated or revoked sooner.PERFORMED BY:[place] [address] [place], [place] [phone] MEDICAL DIRECTORROSCOE LEMUS M.D. 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- Primary CHB (complete heart block) (CMS/HCC) Atrioventricular block, complete S/P placement of cardiac pacemaker Mixed hyperlipidemia Essential hypertension Unspecified essential hypertension Nonrheumatic aortic valve stenosis Paroxysmal atrial fibrillation (CMS/HCC) Atrial fibrillation Overweight (BMI 25.0-29.9) Overweight documented in this encounter [facility] Work Phone: Evaluation note* Diagnosis Onset Date Resolution Status ASHD (arteriosclerotic heart disease) acute Atrial fibrillation acute Benign prostatic hyperplasia with lower urinary tract symptoms acute Chronic bronchitis acute HTN (hypertension) acute Hypercholesterolemia acute ADEN (obstructive sleep apnea) acute Medicare annual wellness visit, subsequent noneactive [facility] Work Phone: History general Narrative - Reported* Type Description Date Medical History Hypercholesteremia Medical History HTN (hypertension) Medical History Depression Medical History COPD (chronic obstructive pulmon nicholas disease) Surgical History cardiac pacemeker Hospitalization History see surgical [employer] Other [facility] general Narrative - Reported* Type Description Date Medical History Hypercholesteremia Medical History HTN (hypertension) Medical History Depression Medical History COPD (chronic obstructive pulmon nicholas disease) Surgical History cardiac pacemeker Surgical History Colonoscopy w/ polypectomy, rep eat 5 years 01/2023 Hospitalization History see surgical [employer] Other History of Present illness Narrative* Patient [...] as originally intended ede in several months. [facility] Work Phone: History of Present [...] the merits of diet exercise and weight loss.[facility] Bertrand 250 DO Work Phone: History of Present [...] will provide guidance regarding carotid disease management. [facility] 250 DO Work Phone: History of [...] will provide guidance regarding carotid disease management. [facility] Work Phone: History of Present illness [...] will provide guidance regarding carotid disease management. [facility] Work Phone: History of Present illness [...] is soft suggesting only mild to moderate stenosis.-[facility] [employer] Work Phone: History of Present illness Narrative* [...] of weight loss and diet were advocated. 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 CHB (complete heart block) (CMS/HCC) Essential hypertension Procedures Follow Up In Cardiology Angel Betancourt MD [address] [facility] [address] [place] [address] Angel Betancourt MD [address] [facility] [address] [place] [address] Referral ID Status Reason Start Date Expiration Date V isits Requested Visits Authorized [id number] Authorized 06/14/2023 06/13/2024 1 1 [facility] Work Phone: Chief Complaint and Reason for [...] Medicare annual wellness visit, subsequent Advance Directives No Advanced Directives Records Found Advance Directive Response Recorded Date/ Time Advance Directives No March 03, 2018 11:15am Advance Directive Response Recorded Date/ Time Advance Directives No March 03, 2018 12:15pm Family History No Family History Records FoundUnknown Family Member Name Dates Details Family history [...] failure Unknown father Unknown Not Specified Unknown Relationship Condition Age at Onset Recorded Date/T eric brother History of coronary artery bypass surgery Unknown Coronary artery disease Unknown brother Leukemia Unknown father Malignant neoplasm of colon Unknown mother Diabetes mellitus Unknown Congestive heart failure Unknown father Unknown mother Unknown Chief Complaint Patient here S/P gen change done by [facility]. Angel Betancourt MD at [facility] on 11/06/2021. Dr. Angel Albarran DO in suite. Pt denies any cardiac [...] Status: Active Member Role Status Dates Ferny Whiet DO Primary Care Provider Active Team Status: Active Member Role Status Dates Ferny White DO Primary Care Provide r, Attending Provider Active Start: March 06, 2024 Team Status: Inactive Member Role Status Dates Angel Betancourt MD Attending Provider Active Start: March 08, 2024 End: March 08, 2024 Ferny White DO Primary Care Provider Active Start: March 08, 2024 End: March 08, 2024 Team Status: Active Member Role Status Dates Caesar Glover MD Primary Care Provider Active Team Status: Inactive Member Role Status Dates Caesar Glover MD Primary Care Provider Active Angel Betancourt MD Attending Provider Active Team Status: Inactive Member Role Status Dates Caesar Glover MD Primary Care Provider, Attending Kali segovia Active Desk Operator Relationship Specialty Start Date End Date Caesar Glover MD PCP - General 10/24/21 Team Status: Inactive Member Role Status Dates Ferny White , Primary Care Provide r, Attending Provider Active [...] InformationGoals may be documented in an alternate sectionGoals may be documented in an alternate section (unrecognized sect ion and content) No Status Records FoundNo Status Records FoundNo Status Records FoundNo Status Records FoundNo Status Records FoundNo Status Records FoundNo Status Records Found INFORMATION SOURCE (unrecogn ized section and content) DATE CREATED AUTHOR 05/11/2022 [facility] DATE CREATED AUTHOR AUTHOR'S ORGANIZ ATION 08/15/2022 [facility] DATE CREATED AUTHOR AUTHOR'S ORGANIZ ATION 09/20/2022 [employer] DATE CREATED AUTHOR AUTHOR'S ORGANIZ ATION 03/08/2023 [facility] DATE CREATED AUTHOR AUTHOR'S ORGANIZ ATION 03/18/2023 [facility] DATE CREATED AUTHOR AUTHOR'S ORGANIZ ATION 06/14/2023 [facility] DATE CREATED AUTHOR AUTHOR'S ORGANIZ ATION 04/06/2024 [facility] REASON FOR VISIT (unrecogniz ed section and [...] BE BASED ON THE PRIMARY CLINICAL RECORDS. [employer] [facility]. provides no warranty or guarantee of the accuracy or completeness of information in this document.
--- NOTE | 2024-04-17 14:34 | RT_ITS ---
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 Findings were considered accurate and reproducible, with exception of DLCO which did not meet ATS standards. Both pre- and post-bronchodilator values utilized for spirometry. Spirometry (based on pre-bronchodilator values): -FEV1/FVC: Reduced @ 30% -FEV1: Very severely reduced @ 29% (0.86L) -FVC: Reduced @ 71% -There is a partial bronchodilator response in FEV1 which meets >12% change but not >200mL increase. Lung volumes by plethysmography (based on pre-bronchodilator values): -RV: Increased @ 216% -TLC: Increased @ 126% Diffusion capacity: -DLCO: Very severe reduction @ 25% when corrected for Hb 13.2g/dL Flow-volume loop: -Very severe obstructive pattern Comparison from 12/23/2021: -FEV1 = 34% (1.04L) -TLC = 130% -DLCO = 20% Impressions: -Very severe obstruction on spirometry which does not meet a positive bronchodilator response. An elevated RV and TLC suggest air trapping and hyperinflation respectively. Very severe diffusion impairment. When compared to prior testing, there is a mild decline in spirometry. Though he did not meet ATS criteria for DLCO, it is consistent with prior testing. 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 Clinical correlation required. Electronically Signed On 04-19-2024 6:49:09 EDT by Chepe Giron
[2024-04-17] MEDS: ALBUTEROL SULFATE 2.5 MG/3 ML VIAL NEB IH (14:37)
== END 2024-04-17 12:32 | disposition home or self-care (01) ==
LOC: CARD 12:32
PROVIDERS: PCP Internal Medicine; Visit Provider Internal Medicine
DX: J43.2 Centrilobular emphysema (principal)
CPT/HCPCS: 94060; 94726; 94729

== ENCOUNTER 2024-06-06 10:41 | Outpatient (OUT) | payer MEDICARE, SELFPAY ==
--- OUTSIDE RECORDS SUMMARY | 2024-06-06 11:06 | XMS_ITS | CCD ---
Author Organization [facility] CliniSyak Care Team Providers Care Financial Risk Manager Name Role Phone MD Caesar Glover Primary [...] Consulting Unavailable SAMSA, STALIN Admitting Unavailable SAMSA, SATLIN Attending Unavailable GLOVER, DR CAESAR Perea Primary Care Unavailable SAMSA, STALIN Attending Unavailable ZIEBER, DR OSIRIS Clinton Consulting Unavailable GLOVER, DR CAESAR Perea Primary Care Unavailable SAMSA, STALIN Admitting Unavailable SAMSA, STALIN Consulting Unavailable MCGUINN, DR LINDER Admitting Unavailable MCGUINN, DR LINDER Attending Unavailable MCGUINN, DR LINDER Consulting Unavailable BELEN, DR CAESAR Perea Primary Care Unavailable MD Caesar Glover Primary Care Provider [phone] MD Angel Betancourt Attending Provider Ferny White Unavailable CAESAR GLOVER Primary Care Physician [phone] Caesar Glover Unavailable Silas CATALAN Attending Unavailable HOSSEIN, Silas Clinton Attending Unavailable Silas CATALAN Attending Unavailable MD Caesar Glover Primary Care Provider [phone] MD Angel Betancourt Attending Provider Belen, Dr. [...] Provider DO Ferny White Primary Care Provider [phone] Ferny White Primary Care Unavailable Angel Betancourt Attending Unavail able Angel Betancourt Admitting Unavail able Allergies Allergy Classification Reported Allergen(s) Allergy Type Date of Onset Reaction(s) Facility (20 sources) Cefaclor; Translations: [Ceclor CAPS] Drug Allergy Hives, Itching [facility] 250 DO Work Phone: (15 sources) Cefaclor; Translations: [Cefaclor] Drug Allergy 10-30-19 22 Eruption of skin (disorder), Hives, Itching [facility] (8 sources) Cefaclor; Translations: [Ceclor] Drug Allergy 07-19-[address] [facility] Repository (6 sources) Ceclor *CEPHALOSPORINS* Propensity to adverse reactions Unknown [facility] Other (6 sources) Allergies Reconciled Propensity to adverse reactions Unknown [employer] Other (6 sources) patient allergy list reviewed by nurse or physicia Propensity to adverse reactions 04-08-20 18 Comment:Done [employer] Other (3 sources) Cephalosporins (Antibiotic); Translations: [Cephalosporins] Allergy to substance 12-06-19 24 Unknown Reaction [facility] Medications Current Medications Medication Drug Class(es) Dates Sig (Normalized) Sig (Original) Aclidinium Colbert (20 sources) Start: 10-29-2021 Aclidinium Colbert (Tudorza Pressair) 400 mcg/actuation aerosol powdr breath activated Active 1 INH INHALATION As Directed October 29, 2021 9:32am Start: 10-29-2021 End: 10-29-2021 Aclidinium Colbert (Tudorza Pressair) 400 mcg/actuation aerosol powdr breath activated Discontinued INHALATION October 29, 2021 9:32am October 29, 2021 9:40am Start: 10-29-2021 End: 12-03-2023 Aclidinium Colbert (Tudorza Pressair) 400 mcg/actuation aerosol powdr breath activated Discontinued 1 INH INHALATION As Directed October 29, 2021 12:00am December 03, 2023 8:14am Start: 10-29-2021 Aclidinium Bro mide (Tudorza Pressair) 400 mcg/actuation aerosol powdr breath activated Active 1 INH INHALATION As Directed October 28, 2021 11:00pm Start: 10-29-2021 End: 10-29-2021 Aclidinium Colbert (Tudorza Pressair) 400 mcg/actuation aerosol powdr breath activated Discontinued INHALATION October 28, 2021 11:00pm October 29, 2021 8:40am Start: 10-29-2021 Aclidinium Bro mide (Tudorza Pressair) 400 mcg/actuation aerosol powdr breath activated Active 1 INH INHALATION As Directed October 29, 2021 12:00am Start: 10-29-2021 End: 10-29-2021 Aclidinium Colbert (Tudorza Pressair) 400 mcg/actuation aerosol powdr breath [...] mouth every other day fish oil concentrate ([place]-3) 120-180 mg capsule Take 1 capsule (1 [...] 1 puff once daily. 0 06/21/2022 Active Umqxybvagys-Waqxnmbsx-Wxtqjs er (2 sources) Start: 12-06-2023 Apzmspelugx-Eosnrtqjh-Gpibga er (Trelegy Ellipta) 200-62.5-25 mcg blister with [...] Complete Metoprolol Tartr ate 50 MG (Prior Auth#:[id number]) Oral Active multivitamin (Daily Multi-Vitamin) tablet (1 [...] Long-term current use of inhaled steroid; Translations: [roasterman (current) use of inhaled steroids] Episodic Other [...] Basophils (Bld) [#/Vol] 0.0 10 3/uL 0.0-0.1 [facility] Basophils/100 WBC Auto (Bld) on 03-06-2024 Basophils/100 WBC (Bld) 0.3 % 0.2-2.0 [facility] Eosinophils/100 WBC Auto (Bl d)on 03-06-2024 Eosinophils/100 WBC (Bld) 2.5 % 0.9-7.0 [facility] Erythrocyte distribution wid th Auto (RBC) [Ratio]on 03-06-2024 Erythrocyte distribution width (RBC) [Ratio] 15.4 % High 11.0-15.0 [facility] Hematocrit Auto (Bld) [Volum e fraction]on 03-06-2024 Hematocrit (Bld) [Volume fraction] 41.2 % Low 42.0-54.0 [facility] Hemoglobin [Mass/volume] in Bloodon 03-06-2024 Hemoglobin (Bld) [Mass/Vol] 13.2 g/dL Low 14.0-18.0 [facility] Iron binding capacity [Mass/ volume] in Serum or Plasmaon 03-06-2024 Iron binding capacity [Mass/Vol] 309.0 ug/dL 250.0-450.0 [facility] Iron saturation [Mass Fracti on] in Serum or Plasmaon 03-06-2024 Iron saturation [Mass fraction] 36.6 % [facility] Laboratory - Chemistry and C hemistry - challengeon 03-06-2024 Cobalamin (Vitamin B12) [Mass/Vol] 871.0 pg/mL 193.0-986.0 [facility] Ferritin [Mass/Vol] 406.0 ng/mL High 26.0-388.0 [facility] Iron [Mass/Vol] 113.0 ug/dL 65.0-175.0 [facility] Laboratory - Hematology and Cell countson 03-06-2024 Immature granulocytes/100 WBC (Bld) 0.5 % 0.0-0.5 [facility] Leukocytes [#/volume] correc clarita for nucleated erythrocytes in Blood by Automated counon 03-06-2024 WBC corrected for nucl RBC Auto (Bld) [#/Vol] 8.7 10 3/uL 4.0-11.0 [facility] Lymphocytes Auto (Bld) [#/Vo l]on 03-06-2024 Lymphocytes (Bld) [#/Vol] 1.6 10 3/uL 1.2-3.8 [facility] Lymphocytes/100 WBC Auto (Bl d)on 03-06-2024 Lymphocytes/100 WBC (Bld) 18.7 % Low 20.5-60.0 [facility] MCH Auto (RBC) [Entitic mass ]on 03-06-2024 MCH (RBC) [Entitic mass] 31.4 pg 25.9-34.0 [facility] MCHC Auto (RBC) [Mass/Vol]on 03-06-2024 MCHC (RBC) [Mass/Vol] 32.0 g/dL 29.9-35.2 [facility] MCV Auto (RBC) [Entitic vol] on 03-06-2024 MCV (RBC) [Entitic vol] 97.9 fL High 80.0-94.0 [facility] Monocytes Auto (Bld) [#/Vol] on 03-06-2024 Monocytes (Bld) [#/Vol] 0.6 10 3/uL 0.3-0.8 [facility] Monocytes/100 WBC Auto (Bld) on 03-06-2024 Monocytes/100 WBC (Bld) 6.9 % 1.7-12.0 [facility] Neutrophils Auto (Bld) [#/Vo l]on 03-06-2024 Neutrophils (Bld) [#/Vol] 6.2 10 3/uL 1.4-6.5 [facility] Neutrophils/100 WBC Auto (Bl d)on 03-06-2024 Neutrophils/100 WBC (Bld) 71.1 % 43.0-75.0 [facility] No Panel Informationon 03-06 Eosinophils # (Auto) 0.2 10 3/uL 0.0-0.7 [facility] Folate 7.50 ng/mL Low 8.60-58.90 [facility] Immature Granulocyte # (Auto) 0.04 10 3/uL High 0.00-0.03 [facility] Platelet mean volume Auto (B ld) [Entitic vol]on 03-06-2024 Platelet mean volume (Bld) [Entitic vol] 11.0 fL 9.5-13.5 [facility] Platelets Auto (Bld) [#/Vol] on 03-06-2024 Platelets (Bld) [#/Vol] 171 10 3/uL 150-450 [facility] RBC Auto (Bld) [#/Vol]on RBC (Bld) [#/Vol] 4.21 10 6/uL Low 4.70-6.10 [facility] Ambulatory Visit Summaryon 0 03-03-2023 Ambulatory [...] polyps Pulmonary emphysema Sick sinus syndrome Normal [facility] General Surgery Office/Clini c Noteon 03-03-2023 General [...] Immunizations Vaccine Date Status Comments SARS-CoV-2 (COVID-19) mRNAMUL.ORD![id number] 05/18/2022 Recorded 2023-01-08: TPV70 SARS-CoV-2 (COVID-19) mRNA BNT-162b2 vax 05/21/2021 Recorded 2023-01-08: TPV70 SARS-CoV-2 (COVID-19) mRNA BNT-162b2 vax 11/13/2020 Recorded SARS-CoV-2 (COVID-19) mRNA BNT-162b2 vax 10/23/2020 Recorded Normal [facility] Comment on above: Result Comment: Elec tronically Signed By: HOSSEIN BREAUX, Silas Wong\Date and Time Signed: 03/03/23 15:26 EDT Reminderson 03-03-2023 Reminders - From: Meghan Gonzáles LPN To: GSN - Clinical; Sent: 03/03/2023 15:23:27 EDT Show up: 01/11/2033 07:00:00 EDT Subject: colonoscopy recall Due Date/Time: 02/10/2033 07:00:00 EDT Reminder/Recall Patient due for screening colonoscopy 02/10/2033. Normal [facility] Outside Colonoscopyon 2022 Outside Colonoscopy [id number]#1.00CD:127 Normal [facility] Pathology Noteon 02-16-2023 Pathology Note [id number]#1.00CD:127 Normal [facility] Pre-Certification Formon Pre-Certification Form [id number]#1.00CD:127 [facility] Consultation Noteon 02-01-20 Consultation Note [id number]#1.00CD:127 Normal [facility] Formson 01-23-2023 Forms [id number]#1.00CD:127 [facility] Consent for Procedure/Surger yon 01-14-2023 Consent for Procedure/Surgery [id number]#1.00CD:127 [facility] Facesheeton 01-14-2023 Facesheet [id number]#1.00CD:127 [facility] Ambulatory Visit Summaryon 0 01-13-2023 Ambulatory Visit [...] polyps Pulmonary emphysema Sick sinus syndrome Normal [facility] Physician Referralon 023 Physician Referral [id number]#1.00CD:127 Normal [facility] Office Visit (Cardiology)on 09-18-2022 Follow-up visit Diagnoses/Problems [...] Screening.on 023 Adult depression screening assessment No -[facility] 250 DO Work Phone: Fall risk assessment a) No falls within the last year -[facility] [address] DO Work Phone: [phone] Tobacco use status [facility] b) No -[facility] [address] DO Work Phone: [phone] ARTERIAL BLOOD GAS,CO-OXon 0 08-13-2022 BASE EXCESS-BLOOD -0.9 mmol/L Normal -2.0 - 3.0 [facility] Comment on above: Performed By: #### A BGC2 #### [facility] [address] [place] [address] BICARB, CALCULATED 22.2 mmol/L Normal 22.0 - 26.0 [facility] Comment on above: Performed By: #### A BGC2 #### [facility] [address] [place] [address] CO HGB 2.0 % Abnormal [facility] Comment on above: Result Comment: REF VALUES NONSMOKERS 0.5-1.5% SMOKERS 0.5-10.0% Performed By: #### A BGC2 #### [facility] [address] [place] [address] DEOXY HGB 3.2 % Normal 0.0 - 5.0 [facility] Comment on above: Performed By: #### A BGC2 #### [facility] [address] [place] [address] Hemoglobin (Bld) [Mass/Vol] 15.0 g/dL Normal 13.5 - 17.5 [facility] Comment on above: Performed By: #### A BGC2 #### [facility] [address] [place] [address] MET HGB 0.9 % Normal 0.0 - 1.5 [facility] Comment on above: Performed By: #### A BGC2 #### [facility] [address] [place] [address] OXY HGB 93.9 % Low 94.0 - 98.0 [facility] Comment on above: Performed By: #### A BGC2 #### [facility] [address] [place] [address] Oxygen (Bld) [Partial pressure] 76 mm[Hg] Low 85 - 95 [facility] Comment on above: Performed By: #### A BGC2 #### [facility] [address] [place] [address] PATIENT TEMPERATURE 37.0 degrees C Normal [facility] Comment on above: Result Comment: NOTE : PATIENT RESULTS ARE NOT CORRECTED FOR TEMPERATURE. Performed By: #### A BGC2 #### [facility] [address] [place] [address] PCO2 32 mmHg Low 38 - 42 [facility] Comment on above: Performed By: #### A BGC2 #### [facility] [address] [place] [address] pH (Bld) 7.45 [pH] High 7.38 - 7.42 [facility] Comment on above: Performed By: #### A BGC2 #### [facility] [address] [place] [address] SO2 97 % Normal 94 - 100 [facility] Comment on above: Performed By: #### A BGC2 #### [facility] [address] 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 COMPARISON: No comparison images were available for review. ACCESSION NUMBER(S): [id number] ORDERING CLINICIAN: FERNY GARCIA TECHNIQUE: Using helical [...] agree with the findings as stated by limited radiology technician Elaine Barkley MD. This study was interpreted at [facility], [place], [place]. Electronically signed by: NELDA PORRAS MD Normal [facility] ECHOCARDIO M/2D COMPLETEon 0 08-10-2022 ECHOCARDIO M/2D COMPLETE Patient: ALAN HERRERA Exam Date: 08/10/2022 : 1945 Gender:M Ordering : FERNY GARCIA M.D. Admission #: [id number] Family : DR CAESAR GLOVER M.D. Order #: [id number] CLICK HERE TO VIEW EXAM ECHOCARDIOGRAM REPORT [...] M.D. on 08/10/2022 at 13:[address] [facility] PROF CHEM 8 (BAS METB)on Anion gap [Moles/Vol] 13.2 mmol/L Normal [facility] Comment on above: Performed By: #### B MP #### [facility] [address] [place] [address] [address] Keya Kuhn Calcium [Mass/Vol] 9.1 mg/dL Normal 8.5-10.1 [facility] Comment on above: Performed By: #### B MP #### [facility] [address] [place] [address] [address] Keya Kuhn Chloride [Moles/Vol] 108 mmol/L Critically high 98-107 [facility] Comment on above: Performed By: #### B MP #### [facility] [address] [place] [address] [address] Keya Kuhn CO2 [Moles/Vol] 26.6 mmol/L Normal 21.0-32.0 [facility] Comment on above: Performed By: #### B MP #### [facility] [address] [place] [address] Dr. Keya Kuhn Creatinine [Mass/Vol] 0.87 mg/dL Normal 0.70-1.30 [facility] Comment on above: Performed By: #### B MP #### [facility] [address] [place] [address] [address] Keya Kuhn EGFR-AF [facility] LUCIAN >60 Normal >=60 [facility] Comment on above: Performed By: #### B MP #### [facility] [address] [place] [address] Dr. Keya Kuhn EGFR-NON AF [facility] LUCIAN >60 Normal >=60 [facility] Comment on above: Performed By: #### B MP #### [facility] [address] [place] [address] [address] Keya Kuhn Glucose [Mass/Vol] 112 mg/dL Critically high 74-106 [facility] Comment on above: Performed By: #### B MP #### [facility] [address] [address] [address] Keya Kuhn Potassium [Moles/Vol] 3.8 mmol/L Normal 3.5-5.1 [facility] Comment on above: Performed By: #### B MP #### [facility] [address] [place] [address] Dr. Keya Kuhn Sodium [Moles/Vol] 144 mmol/L Normal 136-145 [facility] Comment on above: Performed By: #### B MP #### [facility] [address] [place] [address] [address] Keya Kuhn Urea nitrogen [Mass/Vol] 17.0 mg/dL Normal 7.0-18.0 [facility] Comment on above: Performed By: #### B MP #### [facility] [address] [place] [address] [address] Keya Kuhn Urea nitrogen/Creatinine [Mass ratio] 19.5 mg/mg Normal [facility] Comment on above: Performed By: #### B MP #### [facility] [address] [place] [address] [address] Keya Kuhn LIPID PROFILEon 07-02-2022 CHOL-HDL RATIO NORM SEE BELOW Normal [facility] Comment on above: Result Comment: 3.3 - 4.4 LOW RISK 4.4 - 7.1 AVERAGE RISK 7.1 - 11.0 MODERATE RISK >11.0 HIGH RISK Performed By: #### L IPID, AST, BMP, ALT #### [facility] [address] [address] [address] Keya Kuhn Cholesterol [Mass/Vol] 112 mg/dL Normal <=200 [facility] Comment on above: Performed By: #### L IPID, AST, BMP, ALT #### [facility] [address] [place] [address] [address] Keya Kuhn Cholesterol in HDL [Mass/Vol] 43 mg/dL Normal 40-60 [facility] Comment on above: Performed By: #### L IPID, AST, BMP, ALT #### [facility] [address] [place], [place] [address] Dr. Keya Kuhn Cholesterol in LDL [Mass/Vol] 56.0 mg/dL Normal [facility] Comment on above: Performed By: #### L IPID, AST, BMP, ALT #### [facility] [address] [place] [address] [address] Keya Kuhn Cholesterol.total/Ch olesterol in HDL [Mass ratio] 2.6 {ratio} Normal [facility] Comment on above: Performed By: #### L IPID, AST, BMP, ALT #### [facility] [address] [place] [address] [address] Keya Kuhn HDL NORMAL > or = 60 mg/dl - LO W CARDIOVASCULAR RISK <40 mg/dl - HIGH CARDIOVASCULAR RISK Normal [facility] Comment on above: Performed By: #### L IPID, AST, BMP, ALT #### [facility] [address] [place] [address] [address] Keya Kuhn LDL CALC NORMAL SEE BELOW Normal [facility] Comment on above: Result Comment: <100 mg/dl OPTIMAL 100 - 129 mg/dl NEAR OR ABOVE OPTIMAL 130 - 159 mg/dl BORDERLINE HIGH 160 - 189 mg/dl HIGH >190 mg/dl VERY HIGH Performed By: #### L IPID, AST, BMP, ALT #### [facility] [address] [place] [address] [address] Keya Kuhn Triglyceride [Mass/Vol] 65 mg/dL Normal <=150 [facility] Comment on above: Performed By: #### L IPID, AST, BMP, ALT #### [facility] [address] [place] [address] [address] Keya Kuhn VLDL CALC 13.0 mg/dL Normal [facility] Comment on above: Performed By: #### L IPID, AST, BMP, ALT #### [facility] [address] [place] [address] [address] Keya Kuhn PROF CHEM 8 (BAS METB)on Anion gap [Moles/Vol] 11.5 mmol/L Normal [facility] Comment on above: Performed By: #### L IPID, AST, BMP, ALT #### [facility] [address] [place] [address] [address] Keya Kuhn Calcium [Mass/Vol] 9.0 mg/dL Normal 8.5-10.1 [facility] Comment on above: Performed By: #### L IPID, AST, BMP, ALT #### [facility] [address] [place] [address] [address] Keya Kuhn Chloride [Moles/Vol] 104 mmol/L Normal 98-107 [facility] Comment on above: Performed By: #### L IPID, AST, BMP, ALT #### [facility] [address] [address] [address] Keya Kuhn CO2 [Moles/Vol] 29.6 mmol/L Normal 21.0-32.0 [facility] Comment on above: Performed By: #### L IPID, AST, BMP, ALT #### [facility] [address] [place] [address] [address] Keya Kuhn Creatinine [Mass/Vol] 0.82 mg/dL Normal 0.70-1.30 [facility] Comment on above: Performed By: #### L IPID, AST, BMP, ALT #### [facility] [address] [place] [address] [address] Keya Kuhn EGFR-AF [facility] LUCIAN >60 Normal >=60 [facility] Comment on above: Performed By: #### L IPID, AST, BMP, ALT #### [facility] [address] [place] [address] [address] Keya Kuhn EGFR-NON AF [facility] LUCIAN >60 Normal >=60 [facility] Comment on above: Performed By: #### L IPID, AST, BMP, ALT #### [facility] [address] [place] [address] [address] Keya Kuhn Glucose [Mass/Vol] 118 mg/dL Critically high 74-106 [facility] Comment on above: Performed By: #### L IPID, AST, BMP, ALT #### [facility] [address] [place] [address] [address] Keya Kuhn Potassium [Moles/Vol] 3.1 mmol/L Critically low 3.5-5.1 [facility] Comment on above: Performed By: #### L IPID, AST, BMP, ALT #### [facility] [address] [address] [address] Keya Kuhn Sodium [Moles/Vol] 142 mmol/L Normal 136-145 [facility] Comment on above: Performed By: #### L IPID, AST, BMP, ALT #### [facility] [address] [place], [place] [address] Dr. Keya Kuhn Urea nitrogen [Mass/Vol] 14.0 mg/dL Normal 7.0-18.0 [facility] Comment on above: Performed By: #### L IPID, AST, BMP, ALT #### [facility] [address] [place] [address] [address] [address] Keya Kuhn Urea nitrogen/Creatinine [Mass ratio] 17.1 mg/mg Normal [facility] Comment on above: Performed By: #### L IPID, AST, BMP, ALT #### [facility] [address] [place] [address] Dr. Keya Jensen 07-02-2022 AST [Catalytic activity/Vol] 22 U/L Normal 15-37 [facility] Comment on above: Performed By: #### L IPID, AST, BMP, ALT #### [facility] [address] [place] [address] Dr. [facility]20[facility] ALT [Catalytic activity/Vol] 21 U/L Normal 16-63 [facility] Comment on above: Performed By: #### L IPID, AST, BMP, ALT #### [facility] [address] [place] [address] Dr. Keya Kuhn Office Visit (Cardiology)on 06-18-2022 [...] Recorded: 18Jun2022 12:59PM Heart Rate68, L Radial Ckslfqvo444, LUE, Sitting Ydtzhsnlr57, LUE, Sitting Height5 ft 11 in Kmfczh971 lb BMI Vabiutspbp65.2 kg/m2 BSA Calculated2.09 Tobacco Useb) No Falls [...] regular r (more content not included)... Normal [facility] Tobacco Screening.on 022 Fall risk assessment a) [facility] falls [facility] the last [facility] [employer] [place] [address] [place] Work Phone: Tobacco use status [facility] b) No [facility] [employer] [place] [address] DO Work Phone: VASC LAB Carotid Artery Dupl ex Ultrasounon 05-07-2022 VAS LAB Carotid Artery Duplex Ultrasoun [address], [address], [place] [address] Vascular Lab Report Carotid Artery Duplex Ultrasound Patient Name: ALAN Calderon Anisa Physician: [id number] Danilo Paniagua MD, SHARON [facility] Study Date: 05/07/2022 Referring ANGEL BETANCOURT Physician: MRN/PID: [id number] PCP: Caesar Glover Accession/Order#: [id number] CC Report to: Date of : 1945 Technologist: Dee Corey RDCS, T Gender: M Technologist 2: Admission Status: Outpatient Location Performed: [facility] Diagnosis/ICD: R09.89-Other specified symptoms and signs involving the circulatory and respiratory systems Indication: HTN, Hyperlipidemia, Former Smoker, CAD, Complete Heart Block, Sick Sinus Syndrome, Pacemaker, Aortic Stenosis, COPD-on O2 at 2l Procedure/CPT: 77445 Cerebrovascular Carotid Duplex scan complete-09910 CONCLUSIONS: Right Carotid: Findings are consistent with [...] cm/s Right Left ICA/CCA Ratio 0.8 0.9 [id number] Danilo Paniagua MD, [facility] Electronically signed [place] [id number] Danilo Paniagua MD, [facility] on 05/08/2022 at 4:20:09 PM Final Normal [facility] VASC LAB Carotid Artery Dupl ex Ultrasoundon 05-07-2022 US.doppler Carotid arteries Please click on the link to view the study images [facility] Work Phone: US.doppler Carotid arteries [facility] [address] DO Work Phone: Office Visit (Cardiology)on [...] Weight Tips; Status:Complete - Retrospective Authorization; Done: [id number] Some eating tips that can help you lose weight.; Status:Complete - Retrospective Authorization; Done: [id number] Patient Instructions Please bring all medicines, vitamins, [...] 2-3 servings a day Former smoker (V15.82) (Z87.974) No alcohol use No illicit drug use [...] Recorded: 06Apr2022 08:55AM Heart Rate80, L Radial Mwdzojsn609, LUE, Sitting Ihyyxwbar60, LUE, Sitting Height5 ft 11 in Wvgpnz861 lb BMI Dkwqopvnew01.03 kg/m2 BSA Calculated2.11 Tobacco Useb) No Falls [...] no mass (more content not included)... Normal [facility] Tobacco Screening.on 022 Fall risk assessment a) No falls within the last year [facility] [employer] [place] 250 DO Work Phone: Tobacco use status [facility] b) No [facility] [employer] [place] 250 DO Work Phone: [facility] CARDIAC STRESS/REST INJE CTIONon 03-04-2022 [facility] CARDIAC STRESS/REST INJECTION Patient Name: ALAN HERRERA STUDY: MYOCARDIAL PERFUSION STRESS TEST WITH LEXISCAN Performing facility: [facility], [address] [place] [address], [address], [place] [address] [facility] Provider: Mignon Betancourt MD, FACC PCP: Dr. Sukhjinder Glover Supervising provider: Danilo Paniagua MD, FACC INDICATION: Angina CAD; HISTORY: Gender: M; Age: 76 y/o ; Height: 180.34 cm; Weight: 91.7870995 kg. CAD; High Cholesterol; HTN; PPM Chest Pain; SOB; Quit smoking unknown years ago. Cardiac catheterization on 2014. PTCA on 2014. COMPARISON: Previous nuclear testing completed [id number] at [facility]. ACCESSION NUMBER(S): [id number]; [id number]; [id number] ORDERING CLINICIAN: ANGEL BETANCOURT TECHNIQUE: ONE DAY [...] Electronically signed by: DANILO PANIAGUA MD Normal [facility] No Panel Informationon 03-04 Normal -[facility] [address] [place] Work Phone: Office [...] Med Order; Status:Hold For - Scheduling; Requested for:[id number]; Radiologist to Determine Optimal Study : Y What are the patient's signs and symptoms? : SOB, angina Hyperlipidemia Stop: Pravastatin Sodium 40 MG Oral Tablet Start: Atorvastatin Calcium 20 MG Oral Tablet; TAKE 1 TABLET AT BEDTIME Overweight with body mass index (BMI) of 28 to 28.9 in adult Healthy Weight Tips; Status:Complete; Done: [id number] Some eating tips that can help you lose weight.; Status:Complete; Done: [id number] SocHx: Former smoker Tobacco Use Screening; Status:Complete; Done: [id number] Patient Instructions Please bring all medicines, vitamins, [...] negative for complaint. Vitals Vital Signs Recorded: [id number] 09:34AM Heart Rate60, L Radial Jeqrseqj241, LUE, Sitting Rngjyafui24, LUE, Sitting Height5 ft 11 in Cshozk017 lb BMI Qqfrkdtrhk22.17 kg/m2 BSA Calculated2.12 Tobacco Useb) No PHQ-2 [...] carotid pulse (more content not included)... Normal [facility] Tobacco Screening.on 022 Adult depression screening assessment No [facility] [employer] [place] 250 DO Work Phone: Fall risk assessment a) No falls within the last year [facility] [employer] [place] 250 DO Work Phone: Tobacco use status [facility] b) No [facility] [employer] [place] 250 DO Work Phone: CT LUNG [...] OSIRIS JIMENEZ Date: 2022-02-03 13:[address] [facility] HEMOGLOBINon 12-23-2021 Hemoglobin (Bld) [Mass/Vol] 14.7 g/dL Normal 14.0-18.0 [facility] Comment on above: Performed By: #### H GB #### [facility] [address], [place] [address] Dr. Keya Kuhn PULMONARY FUNCTION TESTon PULMONARY FUNCTION TEST The [place], [place] NAME: ALAN HERRERA DATE OF : MEDICAL REC#: [id number] ETIOLOGIST: 160[address] [facility], TRANSADMIT DATE: 12/23/2021 08:58:00 ARCHITECTURE ANALYST DATE: 12/24/2021 03:00 DICTATING PHYSICIAN: STALIN ONOFRE [...] STALIN ONOFRE . 12/24/2021 11:07:[address] [facility] Activated partial thrombopla stin time (aPTT) in platelet poor plasma by coagulation aOrdered By: Angel Betancourt on 11-06-2021 aPTT Coag (PPP) [Time] 34.6 s 25.1-36.5 [facility] Laboratory - CoagulationOrde red By: Angel Betancourt on 11-06-2021 PT Coag (PPP) [Time] 12.8 s 9.0-12.9 [facility] No Panel Informationon 11-06 1.1\S\1.1 Normal [facility] 250 DO Work Phone: Comment [...] valves: 3 - 4.5 12.8\S\12.8 Normal 9.0-12.9 [facility] [place] 250 DO Work Phone: 34.6\S\34.6 Normal 25.1-36.5 [facility] 250 DO Work Phone: Comment on above: PERFORMED BY:[place] [address] [address] [place], [place] [phone] MEDICAL DIRECTORROSCOE LEMUS M.D. Platelet poor plasma interna tional normalized ratio (INR) by coagulation assay (relatOrdered By: Angel Betancourt on 11-06-2021 INR Coag (PPP) [Relative time] 1.1 {INR} [facility] Comment on above: INR Therapeutic Rang e [...] Radiologyon 11-06-2021 Portable XR Chest Views Normal [facility] [address] DO Work Phone: XR Chest 2 Views Normal [facility] 250 DO Work Phone: COVID-19 Positive/NegativeOr dered By: Angel Betancourt on 11-04-2021 SARS-CoV-2 (COVID-19) N gene OG+probe Ql (Resp) Negative Negative [facility] Comment on above: Testing for SARS-CoV -2 by RT-PCRThis test was developed and its performance characteristics determined by [employer] ([employer]) and validated at the [facility]. This test has not been FDA cleared [...] developed and its performance characteristics determined by [employer] ([employer]) and validated at the [facility]. This test has not been FDA cleared [...] 10-29-2021 Basophils (Bld) [#/Vol] 0.0 10*3/uL 0.0-0.2 [facility] Basophils/100 WBC Auto (Bld) Ordered By: Angel Betancourt on 10-29-2021 Basophils/100 WBC (Bld) 0.6 % [facility] Blood hemoglobin measurement (mass/volume)Ordered By: Angel Betancourt on 10-29-2021 Hemoglobin (Bld) [Mass/Vol] 14.9 g/dL 13.0-17.0 [facility] Blood leukocytes automated c ount (number/volume)Ordered By: Angel Betancourt on 10-29-2021 WBC (Bld) [#/Vol] 7.6 10*3/uL 4.5-11.0 [facility] Creatinine and Glomerular fi ltration rate.predicted panel (S/P/Bld)Ordered By: Angel Betancourt on 10-29-2021 Creatinine [Mass/Vol] 0.83 mg/dL 0.64-1.27 [facility] Eosinophils Auto (Bld) [#/Vo l]Ordered By: Angel Betancourt on 10-29-2021 Eosinophils (Bld) [#/Vol] 0.2 10*3/uL 0.0-0.45 [facility] Eosinophils/100 WBC Auto (Bl d)Ordered By: Angel Betancourt on 10-29-2021 Eosinophils/100 WBC (Bld) 2.9 % [facility] Erythrocyte distribution wid th Auto (RBC) [Ratio]Ordered By: Angel Betancourt on 10-29-2021 Erythrocyte distribution width (RBC) [Ratio] 14.8 % 12.0-14.8 [facility] Estimated glomerular filtrat ion rate (GFR) non- AmericanOrdered By: Angel Betancourt on 10-29-2021 GFR/1.73 sq M.predicted among non-blacks MDRD (S/P/Bld) [Vol rate/Area] > 60 mL/Min [facility] Hematocrit Auto (Bld) [Volum e fraction]Ordered By: Angel Betancourt on 10-29-2021 Hematocrit (Bld) [Volume fraction] 45.8 % 38.8-50.0 [facility] Laboratory - Hematology and Cell countsOrdered By: Angel Betancourt on 10-29-2021 Nucleated RBC/100 WBC (Bld) [Ratio] 0.1 % 0-0.5 [facility] Lymphocytes Auto (Bld) [#/Vo l]Ordered By: Angel Betancourt on 10-29-2021 Lymphocytes (Bld) [#/Vol] 1.7 10*3/uL 1.00-4.8 [facility] Lymphocytes/100 WBC Auto (Bl d)Ordered By: Angel Betancourt on 10-29-2021 Lymphocytes/100 WBC (Bld) 21.8 % [facility] MCH Auto (RBC) [Entitic mass ]Ordered By: Angel Betancourt on 10-29-2021 MCH (RBC) [Entitic mass] 30.1 pg 27.5-35.2 [facility] MCHC Auto (RBC) [Mass/Vol]Or dered By: Angel Betancourt on 10-29-2021 MCHC (RBC) [Mass/Vol] 32.6 g/dL 32.5-35.6 [facility] MCV Auto (RBC) [Entitic vol] Ordered By: Angel Betancourt on 10-29-2021 MCV (RBC) [Entitic vol] 92.3 fL 83.5-101 [facility] Monocytes Auto (Bld) [#/Vol] Ordered By: Angel Betancourt on 10-29-2021 Monocytes (Bld) [#/Vol] 0.6 10*3/uL 0.0-0.8 [facility] Monocytes/100 WBC Auto (Bld) Ordered By: Angel Betancourt on 10-29-2021 Monocytes/100 WBC (Bld) 7.6 % [facility] Neutrophils Auto (Bld) [#/Vo l]Ordered By: Angel Betancourt on 10-29-2021 Neutrophils (Bld) [#/Vol] 5.1 10*3/uL 1.8-7.7 [facility] Neutrophils/100 WBC Auto (Bl d)Ordered By: Angel Betancourt on 10-29-2021 Neutrophils/100 WBC (Bld) 67.1 % [facility] No Panel InformationOrdered By: Angel Betancourt on 10-29-2021 Estimated GFR () > 60 mL/Min [facility] Comment on above: GFR estimated refere nce range: According to KDOQI guidelines, <60 ml/min/1.73m2 is sufficient to diagnose a patient with chronic kidney disease. Pharmacy Creatinine Clearance (Chem N/A [facility] No Panel Informationon 10-29 9.6\S\9.6 Normal 8.2-10.2 [facility] [place] [facility] [place] Work Phone: Comment on above: PERFORMED BY:[place] [address] [place], [place] [phone] MEDICAL DIRECTORROSCOE LEMUS M.D. 23.9\S\23.9 Normal 22.0-30.0 [employer] [place] 600 DO Work Phone: 105\S\105 Normal 95-114 [employer] [place] 600 DO Work Phone: 3.5\S\3.5 Normal 3.5-5.1 [employer] [place] 600 DO Work Phone: 139\S\139 Normal 136-146 [employer] [place] [address] DO Work Phone: > 60 Normal [employer] [place] 600 DO Work Phone: Comment on above: GFR estimated refere nce range: According to KDOQI guidelines, <60 ml/min/1.73m2 is sufficient to diagnose a patient with chronic kidney disease. 0.83\S\0.83 Normal 0.64-1.27 [facility] [place] [address] [place] Work Phone: 14\S\14 Normal 9-23 [facility] [place] [address] DO Work Phone: 117\S\117 above high threshold 70-100 -[facility] [place] [address] DO Work Phone: Comment on above: Random Glucose Refer ence Range is dependent on time and content of last meal. Glucose of more than 200 mg/dL in a nonstressed, ambulatory subject supports the diagnosis of Diabetes Mellitus. ADA recommended reference range 67.1\S\67.1 Normal . [facility] [place] [address] DO Work Phone: 9.0\S\9.0 Normal 6.6-10.1 [facility] [place] [address] DO Work Phone: 196\S\196 Normal 150-450 [facility] [place] [address] DO Work Phone: 14.8\S\14.8 Normal 12.0-14.8 [facility] [place] [address] DO Work Phone: 32.6\S\32.6 Normal 32.5-35.6 [facility] [place] [facility] DO Work Phone: 30.1\S\30.1 Normal 27.5-35.2 [facility] DO Work Phone: 5.1\S\5.1 Normal 1.8-7.7 [facility] DO Work Phone: 0.1\S\0.1 Normal 0-0.5 [facility] DO Work Phone: 0.6\S\0.6 Normal 0.0-0.8 [facility] [place] [address] DO Work Phone: 2.9\S\2.9 Normal . [facility] [facility] [address] DO Work Phone: 7.6\S\7.6 Normal 4.1-10.5 [facility] [place] [address] DO Work Phone: 21.8\S\21.8 Normal . [facility] [place] 600 DO Work Phone: 0.0\S\0.0 Normal 0.0-0.2 [facility] [place] [address] DO Work Phone: Comment on above: PERFORMED BY:[facility] [place], [place] [phone] MEDICAL DIRECTORROSCOE LEMUS M.D. 0.2\S\0.2 Normal 0.0-0.45 [facility] [facility] 600 DO Work Phone: 1.7\S\1.7 Normal 1.00-4.8 [facility] [facility] 600 DO Work Phone: 92.3\S\92.3 Normal 83.5-101 [facility] [facility] 600 DO Work Phone: 45.8\S\45.8 Normal 38.8-50.0 [facility] [facility] 600 DO Work Phone: 14.9\S\14.9 Normal 13.0-17.0 [facility] [facility] 600 DO Work Phone: 4.96\S\4.96 Normal 3.90-5.60 [facility] [facility] 600 DO Work Phone: Platelet mean volume Auto (B ld) [Entitic vol]Ordered By: Angel Betancourt on 10-29-2021 Platelet mean volume (Bld) [Entitic vol] 9.0 fL 6.6-10.1 [facility] Platelets Auto (Bld) [#/Vol] Ordered By: Angel Betancourt on 10-29-2021 Platelets (Bld) [#/Vol] 196 10*3/uL 150-450 [facility] RBC Auto (Bld) [#/Vol]Ordere d By: Angel Betancourt on 10-29-2021 RBC (Bld) [#/Vol] 4.96 10*6/uL 3.90-5.60 [facility] Serum or plasma calcium ozzie urement (mass/volume)Ordered By: Angel Betancourt on 10-29-2021 Calcium [Mass/Vol] 9.6 mg/dL 8.2-10.2 [facility] Serum or plasma chloride tatyana surement (moles/volume)Ordered By: Angel Betancourt on 10-29-2021 Chloride [Moles/Vol] 105 mmol/L 95-114 [facility] Serum or plasma glucose ozzie urement (mass/volume)Ordered By: Angel Betancourt on 10-29-2021 Glucose [Mass/Vol] 117 mg/dL 70-100 [facility] Comment on above: ADA recommended refe [...] on 10-29-2021 Potassium [Moles/Vol] 3.5 mmol/L 3.5-5.1 [facility] Serum or plasma sodium measu rement (moles/volume)Ordered By: Angel Betancourt on 10-29-2021 Sodium [Moles/Vol] 139 mmol/L 136-146 [facility] Serum or plasma total carbon dioxide measurement (moles/volume)Ordered By: Angel Betancourt on 10-29-2021 CO2 [Moles/Vol] 23.9 mmol/L 22.0-30.0 [facility] Serum or plasma urea nitroge n measurement (mass/volume)Ordered By: Angel Betancourt on 10-29-2021 Urea nitrogen [Mass/Vol] 14 mg/dL 04-10 [facility] Office Visit (Cardiology)on 10-24-2021 Follow-up visit Diagnoses/Problems [...] Status: Hold For - Scheduling Requested for: [id number] Pacemaker Generator Change; Status:Active; Requested for:24Oct2021; SocHx: [...] MG O (more content not included)... Normal [facility] Tobacco Screening.on Adult depression screening assessment No [facility] [employer] 250 DO Work Phone: Fall risk assessment a) No falls within the last year [facility] [employer] 250 DO Work Phone: Tobacco use status CPHS b) No [facility] [employer] 250 DO Work Phone: Vital Signs Date Time Vital Sign Value Performing Clinician Facility 12-06-2023 11:35-0400 Body height 180.34 cm [facility] 12-06-2023 11:35-0400 Body mass index (BMI) [Ratio] 26.6 kg/m2 [facility] 12-06-2023 11:35-0400 Body weight 86.74 kg [facility] 12-06-2023 11:35-0400 Diastolic blood pressure 65 mm[Hg] [facility] 12-06-2023 11:35-0400 Heart rate 72 /min [facility] 12-06-2023 11:35-0400 Respiratory rate 16 /min [facility] 12-06-2023 11:35-0400 Systolic blood pressure 98 mm[Hg] [facility] 06-14-2023 08:26-0500 Body height 180.3 cm Angel Betancourt MD Work Phone: [facility] 06-14-2023 08:26-0500 Body mass index (BMI) [Ratio] 27.89 kg/m2 Angel Betancourt MD Work Phone: [facility] 06-14-2023 08:26-0500 Body weight 90.72 kg Angel Betancourt MD Work Phone: [facility] 06-14-2023 08:26-0500 Diastolic blood pressure 64 mm[Hg] Angel Betancourt MD Work Phone: [facility] 06-14-2023 08:26-0500 Heart rate 86 /min Angel Betancourt MD Work Phone: [facility] 06-14-2023 08:26-0500 Systolic blood pressure 98 mm[Hg] Angel Betancourt MD Work Phone: [facility] 04-05-2023 11:30-0400 Body height 180.34 cm Ferny Ball Other [employer] Other 04-05-2023 11:30-0400 Body mass index (BMI) [Ratio] 26.66 kg/m2 Ferny Ball Other [employer] Other 04-05-2023 11:30-0400 Body weight 86.73 kg Ferny Ball Other [employer] Other 04-05-2023 11:30-0400 Diastolic blood pressure 59 mm[Hg] Ferny Ball Other [employer] Other 04-05-2023 11:30-0400 Respiratory rate 12 /min Ferny Ball Other [employer] Other 04-05-2023 11:30-0400 Systolic blood pressure 92 mm[Hg] Ferny Ball Other [employer] Other 01-13-2023 13:14-0400 Blood Pressure Location Silas CATALAN [facility] 01-13-2023 13:14-0400 Diastolic blood pressure 62 mm[Hg] Silas CATALAN [facility] [place] 01-13-2023 13:14-0400 Heart rate 76 /min Silas DANIELL [facility] [place] 01-13-2023 13:14-0400 Respiratory rate 16 /min Silas CATALAN [facility] [place] 01-13-2023 13:14-0400 Systolic blood pressure 110 mm[Hg] Silas CATALAN [facility] [place] 09-18-2022 14:52-0500 Body height 180.34 cm Caesar Glover Work Phone: [facility] 250 DO Work Phone: 09-18-2022 14:52-0500 Body mass index (BMI) [Ratio] 27.48 kg/m2 Caesar Glover Work Phone: [facility] 250 DO Work Phone: 09-18-2022 14:52-0500 Body surface area Derived from formula 2.1 m2 Caesar Glover Work Phone: [facility] 250 DO Work Phone: 09-18-2022 14:52-0500 Body weight 89.36 kg Caesar Glover Work Phone: [facility] 250 DO Work Phone: 09-18-2022 14:52-0500 Diastolic blood pressure 78 mm[Hg] Caesar Glover Work Phone: [facility] 250 DO Work Phone: 09-18-2022 14:52-0500 Heart rate 66 /min Caesar Glover Work Phone: [facility] 250 DO Work Phone: 09-18-2022 14:52-0500 Systolic blood pressure 122 mm[Hg] Caesar Glover Work Phone: [facility] 250 DO Work Phone: 08-10-2022 11:41-0500 65 1 Caesar Glover Work Phone: [facility] Work Phone: Comment on above: [id number] 07-02-2022 14:41-0500 56 1 Caesar Glover Work Phone: [facility] 250 DO Work Phone: Comment on above: FSL 06-18-2022 12:59-0500 Body height 180.34 cm Caesar Glover Work Phone: [facility] 250 DO Work Phone: 06-18-2022 12:59-0500 Body mass index (BMI) [Ratio] 27.2 kg/m2 Caesar Glover Work Phone: [facility] 250 DO Work Phone: 06-18-2022 12:59-0500 Body surface area Derived from formula 2.09 m2 Caesar Glover Work Phone: [facility] 250 DO Work Phone: 06-18-2022 12:59-0500 Body weight 88.45 kg Caesar Glover Work Phone: [facility] 250 DO Work Phone: 06-18-2022 12:59-0500 Diastolic blood pressure 76 mm[Hg] Caesar Glover Work Phone: [facility] 250 DO Work Phone: 06-18-2022 12:59-0500 Heart rate 68 /min Caesar Glover Work Phone: [facility] 250 DO Work Phone: 06-18-2022 12:59-0500 Systolic blood pressure 134 mm[Hg] Caesar Glover Work Phone: [facility] 250 DO Work Phone: 04-06-2022 08:55-0400 Body height 180.34 cm Caesar Glover Work Phone: [facility] 250 DO Work Phone: 04-06-2022 08:55-0400 Body mass index (BMI) [Ratio] 28.03 kg/m2 Caesar Glover Work Phone: [facility] 250 DO Work Phone: 04-06-2022 08:55-0400 Body surface area Derived from formula 2.11 m2 Caesar Glover Work Phone: [facility] 250 DO Work Phone: 04-06-2022 08:55-0400 Body weight 91.17 kg Caesar Glover Work Phone: [facility] 250 DO Work Phone: 04-06-2022 08:55-0400 Diastolic blood pressure 92 mm[Hg] Caesar Glover Work Phone: [facility] 250 DO Work Phone: 04-06-2022 08:55-0400 Heart rate 80 /min Caesar Glover Work Phone: [facility] 250 DO Work Phone: 04-06-2022 08:55-0400 Systolic blood pressure 170 mm[Hg] Caesar Glover Work Phone: [facility] 250 DO Work Phone: 03-04-2022 12:00-0400 52 1 Caesar Glover Work Phone: [facility] [address] [place] Work Phone: Comment on above: [id number] 03-03-2022 09:34-0400 Body height 180.34 cm Caesar Glover Work Phone: [facility] 250 DO Work Phone: 03-03-2022 09:34-0400 Body mass index (BMI) [Ratio] 28.17 kg/m2 Caesar Glover Work Phone: [facility] 250 DO Work Phone: 03-03-2022 09:34-0400 Body surface area Derived from formula 2.12 m2 Caesar Glover Work Phone: [facility] 250 DO Work Phone: 03-03-2022 09:34-0400 Body weight 91.63 kg Caesar Glover Work Phone: [facility] 250 DO Work Phone: 03-03-2022 09:34-0400 Diastolic blood pressure 88 mm[Hg] Caesar Glover Work Phone: [facility] 250 DO Work Phone: 03-03-2022 09:34-0400 Heart rate 60 /min Caesar Glover Work Phone: [facility] 250 DO Work Phone: 03-03-2022 09:34-0400 Systolic blood pressure 136 mm[Hg] Caesar Glover Work Phone: [facility] 250 DO Work Phone: 11-13-2021 16:16-0400 Body height 180.34 cm Caesar Glover Work Phone: [facility] 250 DO Work Phone: 11-13-2021 16:16-0400 Body mass index (BMI) [Ratio] 27.48 kg/m2 Caesar Glover Work Phone: [facility] 250 DO Work Phone: 11-13-2021 16:16-0400 Body surface area Derived from formula 2.1 m2 Caesar Glover Work Phone: [facility] 250 DO Work Phone: 11-13-2021 16:16-0400 Body temperature 98.1 [degF] Caesar Glover Work Phone: [facility] 250 DO Work Phone: 11-13-2021 16:16-0400 Body weight 89.36 kg Caesar Glover Work Phone: [facility] 250 DO Work Phone: 11-13-2021 16:16-0400 Diastolic blood pressure 72 mm[Hg] Caesar Glover Work Phone: [facility] 250 DO Work Phone: 11-13-2021 16:16-0400 Heart rate 72 /min Caesar Glover Work Phone: [facility] 250 DO Work Phone: 11-13-2021 16:16-0400 Systolic blood pressure 136 mm[Hg] Caesar Glover Work Phone: [facility] 250 DO Work Phone: 11-06-2021 11:23-0400 Diastolic blood pressure 51 mm[Hg] MD Caesar Glover Work Phone: [facility] 11-06-2021 11:23-0400 Heart rate 60 /min MD Caesar Glover Work Phone: [facility] 11-06-2021 11:23-0400 Respiratory rate 20 /min MD Caesar Glover Work Phone: [facility] 11-06-2021 11:23-0400 SaO2% (BldA) [Mass fraction] 93 % MD Caesar Glover Work Phone: [facility] 11-06-2021 11:23-0400 Systolic blood pressure 104 mm[Hg] MD Caesar Glover Work Phone: [facility] 11-06-2021 09:38-0400 Inhaled oxygen flow rate 8 L/min MD Caesar Glover Work Phone: [facility] 11-06-2021 08:26-0400 Body height 176.53 cm MD Caesar Glover Work Phone: [facility] 11-06-2021 08:26-0400 Body mass index (BMI) [Ratio] 28.5 kg/m2 MD Caesar Glover Work Phone: [facility] 11-06-2021 08:26-0400 Body weight 89 kg MD Caesar Glover Work Phone: [facility] 11-06-2021 07:29-0400 Body temperature 98.1 [degF] MD Caesar Glover Work Phone: [facility] 10-24-2021 13:51-0400 Diastolic blood pressure 82 mm[Hg] Caesar Glover Work Phone: [facility] 250 DO Work Phone: 10-24-2021 13:51-0400 Systolic blood pressure 156 mm[Hg] Caesar Glover Work Phone: [facility] [facility] 250 DO Work Phone: 10-24-2021 13:47-0400 Body height 180.34 cm Caesar Glover Work Phone: [facility] 250 DO Work Phone: 10-24-2021 13:47-0400 Body mass index (BMI) [Ratio] 27.75 kg/m2 Caesar Glover Work Phone: [facility] 250 DO Work Phone: 10-24-2021 13:47-0400 Body surface area Derived from formula 2.1 m2 Caesar Glover Work Phone: [facility] 250 DO Work Phone: 10-24-2021 13:47-0400 Body weight 90.27 kg Caesar Glover Work Phone: [facility] 250 DO Work Phone: 10-24-2021 13:47-0400 Diastolic blood pressure 88 mm[Hg] Caesar Glover Work Phone: [facility] 250 DO Work Phone: 10-24-2021 13:47-0400 Heart rate 68 /min Caesar Glover Work Phone: [facility] 250 DO Work Phone: 10-24-2021 13:47-0400 Systolic blood pressure 162 mm[Hg] Caesar Glover Work Phone: [facility] 250 DO Work Phone: Encounters Encounter Date Encounter Type Care Provider Facility Start: 03-08-2024 End: 03-08-2024 Patient encounter procedure DO Ferny Ball Work Phone: [facility] Start: 03-08-2024 End: 03-08-2024 ambulatory DO Ferny Ball Work Phone: [facility] Work Phone: Start: 03-06-2024 Non-patient / Non-visit DO Jose garcia Ball Work Phone: [facility] Physician [facility] Work Phone: Start: 12-06-2023 End: 12-06-2023 ambulatory [facility] Work Phone: Start: 12-06-2023 End: 12-06-2023 Patient encounter procedure [facility] Work Phone: Start: 06-14-2023 End: 06-14-2023 ambulatory ANGEL BETANCOURT [facility] Ambulatory Start: 06-14-2023 End: 06-14-2023 Office outpatient visit 25 minutes Angel Betancourt MD Work Phone: [facility] Comment on above: 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 Caesar Glover Facility:[id number] Start: 03-08-2023 End: 03-08-2023 ambulatory MD Caesar Glover Work Phone: [facility] Work Phone: Start: 03-08-2023 End: 03-08-2023 Patient encounter procedure MD Caesar Glover Work Phone: [facility] Start: 03-03-2023 End: 03-04-2023 ambulatory [facility] CATALAN [facility] Start: 03-01-2023 End: 03-01-2023 ambulatory Caesar Glover Other [employer] Other Start: 03-01-2023 Telephone encounter Caesar Glover [facility] Start: 02-17-2023 End: 02-17-2023 ambulatory Ferny White Other [facility] Other Start: 02-17-2023 Telephone encounter Ferny Bal [facility] Start: 02-11-2023 End: 02-11-2023 ambulatory Ferny White Other [employer] Other Start: 02-11-2023 Telephone encounter Ferny Bal [facility] Start: 02-10-2023 End: 02-11-2023 ambulatory Silas R NILL Facility:CD:[id number] Start: 01-22-2023 Image Encounter Caesar Glover Work Phone: [facility] 250 DO Work Phone: Start: 01-13-2023 End: 01-14-2023 ambulatory Silas R NILL Facility:[facility] Start: 01-13-2023 End: 01-13-2023 Patient encounter procedure Silas R NILL [facility] [place] Start: 01-07-2023 ambulatory Silas NILL Facility:[facility] Start: 12-28-2022 ambulatory Silas NILL Facility:[facility] Start: 12-24-2022 End: 12-24-2022 ambulatory Ferny White Other [place] [employer] Other Start: 12-24-2022 Telephone encounter Ferny White [facility] Start: 12-04-[address] Caesar Glover Facility:[id number] Start: 10-26-2022 Rx Renewal Caesar Glover Work Phone: [facility] 250 DO Work Phone: Start: 09-18-2022 FUV, Provider: Angel Betancourt, Status: Pen, Time: 2:50 PM Caesar Glover Work Phone: [facility] 600 DO Work Phone: Start: 09-18-2022 Office outpatient vi sit 25 minutes Caesar Glover Work Phone: [facility] 250 DO Work Phone: Start: 09-18-[address] Angel Betancourt Facility: Start: 09-16-2022 Telephone encounter Caesar owens Work Phone: [facility] 600 DO Work Phone: Start: 09-03-2022 End: 09-03-2022 ambulatory MD Caesar Glover Work Phone: [facility] Work Phone: Start: 09-03-2022 End: 09-03-2022 Patient encounter procedure MD Caesar Glover Work Phone: [facility] Start: 09-03-[address] Caesar Glover Facility:[id number] Start: 08-14-2022 ambulatory [facility] Facility:H 1 Start: 08-13-[address] Caesar Glover Facility:[facility] Start: 08-13-[address] Caesar Glover Facility:[facility] Start: 08-10-2022 End: 08-11-[address] DOCTOR DOUGHERTY Facility: Start: 07-30-2022 AUDIT Caesar Glover Work Phone: [facility] Work Phone: Start: 07-30-2022 End: 07-31-[address] CAESAR GLOVER Facility: Start: 07-08-2022 Patient encounter procedure Caesar Glover Work Phone: [facility] 250 DO Work Phone: Start: 07-02-2022 End: 07-03-[address] ANGEL BETANCOURT Facility: Start: 06-18-2022 Office outpatient vi sit 25 minutes Caesar Glover Work Phone: [facility] 250 DO Work Phone: Start: 06-18-[address] Angel Betancourt II Facility: Start: 06-03-[address] Caesar Glover Facility:[id number] Start: 06-03-2022 End: 06-03-2022 ambulatory MD Caesar Glover Work Phone: [facility] Work Phone: Start: 06-03-2022 End: 06-03-2022 Patient encounter procedure MD Caesar Glover Work Phone: [facility] Start: 05-14-2022 Chart Update Caesar Glover Work Phone: [facility] 600 DO Work Phone: Start: 05-14-2022 Adult health examination Basil Kiddies Smilz Other [facility] Other Start: 05-07-[address] ANGEL MORENO II Facility:[id number] Start: 04-06-2022 Office outpatient vi sit 25 minutes Caesar Glover Work Phone: [facility] 250 DO Work Phone: Start: 04-06-[address] Angel Betancourt II Facility: Start: 03-04-2022 Patient encounter procedure Caesar Glover Work Phone: [facility] 250A [place] Work Phone: Start: 03-04-2022 STRESS NUC, Provider : [facility],[id number], Status: Pen, Time: 12:00 PM Caesar Glover Work Phone: [facility] 250 DO Work Phone: Start: 03-04-[address] ANGEL MORENO II Facility:[id number] Start: 03-03-2022 Office outpatient vi sit 25 minutes Caesar Glover Work Phone: [facility] 250 DO Work Phone: Start: 02-26-2022 End: 02-26-2022 Patient encounter procedure MD Caesar Glover Work Phone: [facility] Start: 02-02-2022 End: 02-03-2022 ambulatory [facility] Facility:H1 Start: 12-23-2021 End: 12-24-2021 ambulatory [facility] Facility: Start: 12-22-2021 End: 12-22-2021 Patient encounter procedure MD Caesar Glover Work Phone: [facility] Start: 11-13-2021 Postop follow up vis it related to original px Caesar Glover Work Phone: [facility] 250 DO Work Phone: Start: 11-06-2021 SURGNON, Provider: Angel Betancourt, Status: Pen, Time: 9:00 AM Caesar Glover Work Phone: [facility] 250 DO Work Phone: Start: 11-06-2021 End: 11-06-2021 Admission to same day surgery center MD Caesar Glover Work Phone: [facility] [place] Start: 11-05-2021 Chart Update Caesar Glover Work Phone: [facility] 250 DO Work Phone: Start: 11-04-2021 End: 11-04-2021 Patient encounter procedure MD Caesar Glover Work Phone: [facility] Start: 10-30-2021 Chart Update Caesar Glover Work Phone: [facility] 600 DO Work Phone: Start: 10-29-2021 End: 10-29-2021 Patient encounter procedure MD Caesar Glover Work Phone: [facility] Start: 10-24-2021 Office outpatient ne w 60 minutes Caesar Glover Work Phone: -[facility] 250 DO Work Phone: Start: 09-19-2021 End: 09-19-2021 Patient encounter procedure MD Caesar Glover Work Phone: [facility] Start: 06-23-2021 End: 06-23-2021 Patient encounter procedure MD Caesar Glover Work Phone: [facility] Procedures Date Procedure Procedure Detail Performing [...] 02-10-2033 Screening for malignant neoplasm of colon [facility] Start: 03-07-2024 End: 03-07-2024 Patient encounter procedure 03/07/2024 9:40 AM EDT Office Visit [place] [address] [facility] [address] [place] [address] Angel Betancourt MD [address] [facility], [address] [place] [address] [facility] Start: 06-25-2023 COVID-19 Vaccine (5 - Pfizer series) COVID-19 Vaccine (5 - Pfizer series) [facility] Start: 05-28-2023 FUV, Provider: Anegl Betancourt, Status: Pen, Time: 2:50 PM FUV, Provider: Angel Betancourt, Status: Pen, Time: 2:50 [facility] Work [facility]: Start: 01-08-2023 FUV, Provider: Angel Betancourt, Status: Pen, Time: 2:30 PM FUV, Provider: Angel Betancourt, Status: Pen, Time: 2:30 PM [facility] Work Phone: Start: 08-14-2022 ECHO, Provider: BERTRAND [facility] 01,[id number], Status: Pen, Time: 10:45 AM ECHO, Provider: BERTRAND [facility] 01,[id number], Status: Pen, Time: 10:45 AM [facility] Work Phone: Start: 08-13-2022 PST, Provider: [...] Angel Betancourt, Status: Pen, Time: 1:00 PM [facility] Work Phone: Start: 05-07-2022 CAROTID, Provider: BERTRAND [facility] 01,[id number], Status: Pen, Time: 10:45 AM CAROTID, Provider: BERTRAND [facility] 01,[id number], Status: Pen, Time: 10:45 AM -[facility] 250 DO Work Phone: Start: 04-06-2022 FUV, Provider: Angel Betancourt, Status: Pen, Time: 8:50 AM FUV, Provider: Angel Betancourt, Status: Pen, Time: 8:50 AM -[facility] 250 DO Work Phone: Start: 03-03-2022 FUV, Provider: Angel Betancourt, Status: Pen, Time: 9:20 AM FUV, Provider: Angel Betancourt, Status: Pen, Time: 9:20 AM -[facility] 250 DO Work Phone: Start: 11-13-2021 [place], Provider: ELLIE TINEO MEDIA PROFESSIONAL 1,[id number], Status: Pen, Time: 9:30 AM [place], Provider: ELLIE TINEO MEDIA PROFESSIONAL 1,[id number], Status: Pen, Time: 9:30 AM -[facility] 250 DO Work Phone: Start: 11-07-2021 Plain chest X-ray XR chest 2V* [facility] Start: 11-06-2021 [facility], Provider: Angel Betancourt, Status: Pen, Time: 9:00 AM [facility], Provider: Angel Betancourt, Status: Pen, Time: 9:00 AM [facility] 250 DO Work Phone: Start: 2012 Abdominal aortic aneurysm screening Abdominal Aortic Aneurysm (AAA) Screening [facility] Start: 1997 Zoster Vaccines (1 of 2) Zoster Vaccines (1 of 2) [facility] Start: 1969 DTaP/Tdap/Td Vaccines (1 - Tdap) DTaP/Tdap/Td Vaccines (1 - Tdap) [facility] Start: 1965 Hepatitis C screening Hepatitis C Screening [facility] Start: 1945 Lipid panel Lipid Panel [facility] Start: 1945 Medicare Annual Wellness Visit Medicare Annual Wellness Visit (AWV) [facility] Start: 1945 Screening for malignant neoplasm of colon [facility] Comprehensive metabo lic 2000 panel - Serum or Plasma [facility] Immunizations Immunization Date Immunization Notes Care Provider Fa cility 04-30-2023 influenza virus vaccine, unspecified formulation Angel Betancourt MD Work Phone: [facility] Work Phone: 05-18-2022 Pfizer COVID-19 Vac Bivalent 30 MCG/0.3ML Intramuscular Suspension Caesar Glover Work Phone: [facility] [place] Comment on above: Result Comment: 2022: [id number] 05-18-2022 Pfizer Purple Cap SARS-CoV-2 Angel Betancourt MD Work Phone: [facility] Work Phone: 04-21-2022 influenza virus vaccine, split virus (incl. purified surface antigen) Ferny White Other [facility] Other 04-21-2022 influenza virus vaccine, unspecified formulation [facility] 04-18-2022 influenza virus vaccine, unspecified formulation [facility] 04-18-2022 influenza, high dose seasonal, preservative-free Caesar E Glover Work Phone: [place] [address] DO Work Phone: Comment on above: Series: 05-21-2021 Pfizer-BioNTech COVID-19 Vacc 30 MCG/0.3ML Intramuscular Suspension Caesar E Glover Work Phone: [facility] Comment on above: Result Comment: 2022: [id number] 05-05-2021 influenza virus vaccine, split virus (incl. purified surface antigen) Ferny White Other [facility] Other 05-05-2021 influenza virus vaccine, unspecified formulation [facility] 05-05-2021 Seasonal trivalent influenza vaccine, adjuvanted, preservative free Caesar E Glover Work Phone: [place] [address] DO Work Phone: 11-13-2020 Pfizer-BioNTech COVID-19 Vacc 30 MCG/0.3ML Intramuscular Suspension Caesar E Glover Work Phone: [facility] 10-23-2020 Pfizer-BioNTech COVID-19 Vacc 30 MCG/0.3ML Intramuscular Suspension Caesar E Glover Work Phone: [facility] 04-01-2020 influenza virus vaccine, split virus (incl. purified surface antigen) Ferny White Other [employer] Other 04-01-2020 influenza virus vaccine, unspecified formulation [facility] 04-01-2020 influenza, injectabl e, quadrivalent, contains preservative Caesar E Glover Work Phone: [facility] 250 DO Work Phone: 05-05-2019 influenza virus vaccine, split virus (incl. purified surface antigen) Ferny White Other [employer] Other 05-05-2019 influenza virus vaccine, unspecified formulation [facility] 05-05-2019 influenza, injectabl e, quadrivalent, contains preservative Caesar E Glover Work Phone: [facility] 250 DO Work Phone: 05-02-2018 influenza virus vaccine, split virus (incl. purified surface antigen) Ferny White Other [facility] Other 05-02-2018 influenza virus vaccine, unspecified formulation [facility] 05-02-2018 Seasonal trivalent influenza vaccine, adjuvanted, preservative free Caesar E Glover Work Phone: [place] [address] DO Work Phone: 08-03-2017 diphtheria, tetanus toxoids and acellular pertussis vaccine, unspecified formulation Ferny White Other [facility] 08-03-2017 pneumococcal conjuga te vaccine, 13 valent Caesar E Glover Work Phone: [facility] 05-20-2017 influenza virus vaccine, split virus (incl. purified surface antigen) Ferny White Other [facility] Other 05-20-2017 influenza virus vaccine, unspecified formulation [facility] 05-20-2017 Seasonal trivalent influenza vaccine, adjuvanted, preservative free Caesar E Glover Work Phone: [facility] 250 DO Work Phone: 05-19-2016 influenza virus vaccine, unspecified formulation Caesar E Glover Work Phone: [facility] 250 DO Work Phone: 05-19-2015 influenza virus vaccine, unspecified formulation Caesar E Glover Work Phone: [facility] 250 DO Work Phone: 08-13-2014 pneumococcal polysaccharide vaccine, 23 valent Ferny White Other [facility] 04-23-2014 influenza virus vaccine, unspecified formulation Caesar [facility] Work Phone: 04-18-2014 pneumococcal polysaccharide vaccine, 23 valent Caesar Glover [facility] DO Work Phone: 05-22-2013 influenza virus vaccine, unspecified formulation Caesar Glover Work Phone: [facility] Work Phone: influenza virus vaccine, unspecified formulation Caesar Glover Work Phone: [facility] 250 DO Work Phone: Comment on above: Apr 20122010 Payers Date Payer Category Payer Medicare [employer]ARE [employer] MEDICARE [id number] 2023-Present [address] [place] [address] [id number] 2023 Private Health Insurance [id number] 2016 Medicare [id number] 1959 Medicare [id number] 1959 Private Health Insurance [id number] Self-pay [id number] 1947 Unknown [id number] 2.16.840.1.597285.3.579.2. 8 1947 Unknown [id number] 2.16.840.1.357307.3.579.2. 1067 1947 Unknown [id number] 2.16.840.1.335224.3.579.2. 593 1947 Unknown [id number] 2.16.840.1.009968.3.579.2. 593 1947 Unknown [id number] 2.16.840.1.481693.3.579.2. 593 1947 Unknown [id number] 2.16.840.1.389952.3.579.2. 593 1947 Unknown [id number] 2.16.840.1.453218.3.579.2. 593 1947 Unknown [id number] 2.16.840.1.164743.3.579.2. 727 1947 Unknown [id number] 2.16.840.1.113804.3.579.2. 727 1947 Unknown [id number] 2..840.1.423153.3.579.2. 727 1947 Unknown [id number] 2.16.840.1.818582.3.579.2. 727 1947 Unknown [id number] 2.16.840.1.315185.3.579.2. 727 1947 Unknown [id number] 2.16.840.1.581324.3.579.2. 356 1947 Unknown [id number] 2.16.840.1.209981.3.579.2. 356 1947 Unknown [id number] 2.16.840.1.946078.3.579.2. 356 1947 Unknown [id number] 2.16.840.1.402286.3.579.2. 356 1947 Unknown [id number] 2.16.840.1.451193.3.579.2. 356 1947 Unknown [id number] 2.16.840.1.992458.3.579.2. 356 1947 Unknown [id number] 2.16.840.1.526167.3.579.2. 356 1947 Unknown [id number] 2.16.840.1.783470.3.579.2. 356 1947 Unknown [id number] 2.16.840.1.038541.3.579.2. 356 1947 Unknown [id number] 2.16.840.1.464927.3.579.2. 1244 Unknown [id number] Unknown Unknown [id number] 2.16.840.1.959428.3.579.2. 593 Unknown [id number] 2.16.840.1.552429.3.579.2. 531 Social History Date Type Detail Facility Tobacco smoking stat [facility] Unknown if ever smoked [facility] Work Phone: Start: 1945 Sex Assigned At Male F [facility] Start: 06-14-2023 Daily caffeine consumption, 2-3 servings a day Daily caffeine consumption, 2-3 servings a day -[facility] 250 DO Work Phone: Comment on above: Quit 2019 <1 ppd; 2 cups coffee in mor christal; Start: 10-29-2021 End: 11-06-2021 Tobacco smoking status AZIS Ex-smoker (finding) [facility] Start: 06-14-2023 Sex Assigned At F [facility] Tobacco smoking status Never [facility] [place] History of tobacco use Current smoker [facility] Work Phone: History of tobacco use Cigarette Smoker U [facility] Work Phone: Start: 06-14-2023 Alcohol intake Lifetime non-d susi (finding) [facility] Work Phone: Start: 1945 Sex Assigned At Not on file U [facility] Work Phone: Start: 06-04-2023 End: 06-14-2023 Exposure to SARS-CoV-2 (event) Not sure [facility] Medical Equipment Procedure Code Equipment Code Equipment Origin al Text Equipment Identifier Dates Insertion, pacemaker Dual-chamber implantable pacemaker, rate-responsive ([id number] FDA Start: 11-06-2021 Goals Date Patient [...] day., Disp: , Rfl: fish oil concentrate ([place]-3) 120-180 mg capsule, Take 1 capsule (1 [...] Rfl: Assessment/Plan 1. 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 documented in this encounter [facility] Work Phone: 06-14-2023 Instructions Audelia Ramey [...] up per routine documented in this encounter [facility] Work Phone: 04-05-2023 Evaluation note Encounter [...] are maintaining regular scheduled appts with their historic sites registrar. No bleeding complications Mar, ADEN (obstructive sleep apnea) (ICD-10 - G47.33) This patient is aware of the benefits associated with ADEN: With continued use, the patient reduces the risk for IN, CVA, HTN, cardiac dysrhythmias and sudden cardiac [...] tract symptoms (ICD-10 - N40.1) Symptoms tolerable. [employer] Other 09-05-2023 Evaluation note* Encounter Date Diagnosis Assessment Notes Treatment Notes Treatment Clinical Notes Mar, Primary hypertension (ICD-10 - I10) [employer] Other 08-02-2023 Evaluation note* Encounter Date Diagnosis Assessment Notes Treatment Notes Treatment Clinical Notes Feb, Mucopurulent chronic bronchitis (ICD-10 - J41.1) Feb, Pulmonary nodule (ICD-10 - R91.1) CT: lingula 2.1cm (following w/ Sam) LDCT: no suspicious nodules - 02/2023 [employer] Other 08-02-2023 Evaluation note* Encounter Date Diagnosis Assessment Notes Treatment Notes Treatment Clinical Notes Feb, Solitary pulmonary nodule (ICD-10 - R91.1) LDCT 02/02/2022 showed no change in lingula nodule @ 2.1cm. Resuming LDCT, due 01/2023. Feb, Mucopurulent chronic bronchitis (ICD-10 - J41.1) Feb, ADEN (obstructive sleep apnea) (ICD-10 - G47.33) [employer] Other 06-28-2023 NoteChief Complaint consultation for colonoscopy [...] stenosis, ADEN, referred for surveillance colonoscopy; last [id number] with diverticular disease; h/o colonoscopy in 2012 [...] sertraline, 50 mg, Oral, (more content not included)...[facility]:Result Comment: Electronically Signed By: HOSSEIN BREAUX, Silas Wong\Date and Time Signed: 01/13/23 13:45 [id number] NoteFR COVID- 19 [facility] (Normal)Range:Negative Comments:Testing for SARS-CoV-2 by RT-PCR This test was developed and its performance characteristics determined by [employer]) and validated at the [facility]. This test has not been FDA cleared [...] the authorization is terminated or revoked sooner.PERFORMED BY:[facility] THOMAS CARR [id number] MEDICAL DIRECTORROSCOE LEMUS M.D. [facility] Gray DO Work Phone: Comment on above:Testing for SARS-CoV-2 by RT-PCR This test was developed and its performance characteristics determined by [employer] ([employer]) and validated at the [facility]. This test has not been FDA cleared [...] the authorization is terminated or revoked sooner.PERFORMED BY:[place] [address] [address] [place] [id number] MEDICAL DIRECTORROSCOE LEMUS M.D. 11-04-2021 NoteFR COVID-19 [facility] (Normal)Range:Negative Comments:Testing for SARS-CoV-2 by RT-PCR This test was developed and its performance characteristics determined by [employer] ([place]) and validated at the [facility]. This test has not been FDA cleared [...] the authorization is terminated or revoked sooner.PERFORMED BY:[place] [address] [address] [place] [id number] MEDICAL DIRECTORROSCOE LEMUS M.D. [facility] 250 DO Work Phone: Comment on above:Testing for SARS-CoV-2 by RT-PCR This test was developed and its performance characteristics determined by [employer] and validated at the [facility]. This test has not been FDA cleared [...] the authorization is terminated or revoked sooner.PERFORMED BY:[place] [address] [address] [place], [place] [phone] MEDICAL DIRECTORROSCOE LEMUS M.D. 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- Primary CHB (complete heart block) (CMS/HCC) Atrioventricular block, complete S/P placement of cardiac pacemaker Mixed hyperlipidemia Essential hypertension Unspecified essential hypertension Nonrheumatic aortic valve stenosis Paroxysmal atrial fibrillation (CMS/HCC) Atrial fibrillation Overweight (BMI 25.0-29.9) Overweight documented in this encounter [facility] Work Phone: Evaluation note* Diagnosis Onset Date Resolution Status ASHD (arteriosclerotic heart disease) acute Atrial fibrillation acute Benign prostatic hyperplasia with lower urinary tract symptoms acute Chronic bronchitis acute HTN (hypertension) acute Hypercholesterolemia acute ADEN (obstructive sleep apnea) acute Medicare annual wellness visit, subsequent noneactive [facility] Work Phone: History general Narrative - Reported* Type Description Date Medical History Hypercholesteremia Medical History HTN (hypertension) Medical History Depression Medical History COPD (chronic obstructive pulmon nicholas disease) Surgical History cardiac pacemeker Hospitalization History see surgical [employer] Other [facility] general Narrative - Reported* Type Description Date Medical History Hypercholesteremia Medical History HTN (hypertension) Medical History Depression Medical History COPD (chronic obstructive pulmon nicholas disease) Surgical History cardiac pacemeker Surgical History Colonoscopy w/ polypectomy, rep eat 5 years 01/2023 Hospitalization History see surgical [employer] Other History of Present illness Narrative* Patient [...] as originally intended ede in several months. [facility] Work Phone: History of Present [...] the merits of diet exercise and weight loss.[facility] [employer] 250 DO Work Phone: History of [...] will provide guidance regarding carotid disease management. [facility] 250 DO Work Phone: History [...] will provide guidance regarding carotid disease management. [facility] Work Phone: History of Present illness [...] will provide guidance regarding carotid disease management. [facility] Work Phone: History of Present illness [...] mild to moderate stenosis.-[facility] [employer] Work Phone: History of Present illness Narrative* [...] of weight loss and diet were advocated. 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 CHB (complete heart block) (CMS/HCC) Essential hypertension Procedures Follow Up In Cardiology Angel Betancourt MD [address] [facility] [address] [place] [address] Angel Betancourt MD [address] [facility] [address] [place] [address] Referral ID Status Reason Start Date Expiration Date V isits Requested Visits Authorized [id number] Authorized 06/14/2023 06/13/2024 1 1 [facility] Work Phone: Chief Complaint and Reason [...] Relationship Condition Age at Onset Recorded Date/T reic brother History of coronary artery bypass surgery Unknown Coronary artery disease Unknown brother Leukemia Unknown father Malignant neoplasm of colon Unknown mother Diabetes mellitus Unknown Congestive heart failure Unknown father Unknown mother Unknown Chief Complaint Patient here S/P gen change done by Dr. Angel Betancourt MD at [facility] on 11/06/2021. Dr. Angel Albarran DO in [...] Primary Care Provider, Attending Kali segovia Active Financial Risk Manager Relationship Specialty Start Date End Date Caesar Glover MD PCP - General 10/24/21 Team Status: Inactive Member Role Status Dates Fenry White , Primary Care Provide r, Attending [...] section and content) DATE CREATED AUTHOR 05/11/2022 [facility] DATE CREATED AUTHOR AUTHOR'S ORGANIZ ATION 08/15/2022 [facility] DATE CREATED AUTHOR AUTHOR'S ORGANIZ ATION 09/20/2022 [employer] DATE CREATED AUTHOR AUTHOR'S ORGANIZ ATION 03/08/2023 [facility] DATE CREATED AUTHOR AUTHOR'S ORGANIZ ATION 03/18/2023 [facility] DATE CREATED AUTHOR AUTHOR'S ORGANIZ ATION 06/14/2023 [facility] DATE CREATED AUTHOR AUTHOR'S ORGANIZ ATION 04/06/2024 [facility] REASON FOR VISIT (unrecogniz [...] BE BASED ON THE PRIMARY CLINICAL RECORDS. [employer] [facility]. provides no warranty or guarantee of the accuracy or completeness of information in this document.
[2024-06-06 11:21] LABS: Basophils Percent Auto 0.3 % (0.2-2.0); Eosinophils Absolute Auto 0.2 10^3/uL (0.0-0.7); Eosinophils Percent Auto 1.9 % (0.9-7.0); Hematocrit 43.4 % (42.0-54.0); Hemoglobin 13.9 g/dL (14.0-18.0); Immature Granulocytes Abs Auto 0.05 10^3/uL (0.00-0.03); Immature Granulocytes Pct Auto 0.6 % (0.0-0.5); Lymphocytes Absolute Auto 1.5 10^3/uL (1.2-3.8); Lymphocytes Percent Auto 16.7 % (20.5-60.0); Mean Corpuscular Hemoglobin 30.5 pg (25.9-34.0); Mean Corpuscular Volume 95.4 fL (80.0-94.0); Monocytes Absolute Auto 0.6 10^3/uL (0.3-0.8); Monocytes Percent Auto 7.1 % (1.7-12.0); Neutrophils Absolute Auto 6.6 10^3/uL (1.4-6.5); Neutrophils Percent Auto 73.4 % (43.0-75.0); Platelet Count 217 10^3/uL (150-450); Red Blood Count 4.55 10^6/uL (4.70-6.10); Red Cell Distribution Width 15.2 % (11.0-15.0)
== END 2024-06-06 10:42 | disposition home or self-care (01) ==
LOC: LAB 10:42
PROVIDERS: PCP Internal Medicine; Visit Provider Internal Medicine
DX: D64.9 Anemia, unspecified (principal)
CPT/HCPCS: 36415; 85025

== ENCOUNTER 2024-07-17 06:59 | Outpatient (RCR) | payer MEDICARE, SELFPAY ==
--- NOTE | 2024-04-21 12:13 | PC.NURSE ---
Cardiac Rehab Orientation The following information was reviewed with the patient during Orientation: [x ] 1. Program rights and responsibilities [x ] 2. Attendance Policy [ x] 3. Patients insurance coverage and copayment [x ] 4. Patients current medication list, and purpose for medications [ x] 5. Patients Qualifying diagnosis and procedure history [ x] 6. Patient health history Patients completed the following forms during Orientation: [x ] 1. Knowledge Test [ x] 2. PHQ 9 [x ] 3. SF 36 [x ] 4. Rate your plate [x ] 5. COPD Assessment [x ] 6. Tobacco Use and Dependence Questionnaire Additional Comments:
--- NOTE | 2024-04-21 12:14 | CR1_ITS ---
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
--- NOTE | 2024-04-24 07:41 | CR1_ITS ---
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
--- NOTE | 2024-05-18 12:53 | CR1_ITS ---
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
--- NOTE | 2024-06-14 07:47 | CR1_ITS ---
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
--- NOTE | 2024-07-18 07:42 | CR1_ITS ---
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
== END 2024-07-18 12:05 | disposition home or self-care (01) ==
LOC: CR 06:59
PROVIDERS: PCP Internal Medicine; Visit Provider Internal Medicine
DX: J43.2 Centrilobular emphysema (principal)
CPT/HCPCS: 93798; 94625

== ENCOUNTER 2024-07-31 07:20 | Outpatient (RCR) | payer MEDICARE, SELFPAY | END 2024-07-31 13:55 | disposition home or self-care (01) | LOC: CR 07:20 | PROVIDERS: PCP Internal Medicine; Visit Provider Internal Medicine | DX: J43.2 Centrilobular emphysema (principal) | CPT/HCPCS: 94625 ==

== ENCOUNTER 2024-09-01 10:11 | Outpatient (OUT) | payer MEDICARE, SELFPAY ==
--- NOTE | 2024-09-01 10:15 | CT_ITS ---
[address] [address] Patient Name: BERNARD HERRERA MRN: [id number] date: 1945 Sex: M Assigned Patient Location: CT Current Patient Location: Accession/Order Number: [id number] Exam Date: 09/01/2024 10:18 Report Date: 09/02/2024 09:03 At the request of: STALIN ONOFRE Procedure: CT lung screening low-dose EXAMINATION: CT lung screening low-dose HISTORY: Nicotine Dependence COMPARISON: 08/26/2023 TECHNIQUE: Axial, Coronal, and Sagittal images were created without the administration of IV contrast material.Dose reduction techniques were achieved by using automated exposure control and/or adjustment of mA and/or kV according to patient size and/or use of iterative reconstruction technique. FINDINGS: LUNGS: New 7 mm right lower lobe nodule axial image #142. New mildly spiculated soft tissue density noncalcified 8.3 mm nodule right lower lobe axial image #99. Stable lingular density, scarring is favored. Severe diffuse centrilobular emphysema most significant in the superior segment of the left lower lobe PLEURA: No mass, effusion, or pneumothorax. VASCULATURE: No abnormality. JOEY: No mass or pathologic adenopathy. MEDIASTINUM: No mass or pathologic adenopathy. CARDIAC: No enlargement or pericardial effusion CORONARY ARTERIES: Patient has had previous coronary artery stenting.. AORTA: No aortic aneurysm or dissection. Heavy calcific atherosclerosis CHEST WALL: No mass or axillary adenopathy left pacemaker BONES: No bone lesion or fracture. LIMITED ABDOMEN: No suspicious findings. Limited images of the upper abdomen. OTHER: Negative. CT/CT lung screening low-dose IMPRESSION: New right lower lobe nodules measuring up to 8.3 mm. Lung RADS 4A. Lung-RADs 4A FINDINGS: Solid nodule(s): Greater than/equal to 8 mm to <15 mm at baseline; OR growing <8 mm OR new 6 to <8 mm part solid nodule(s) greater than/equal to 6 mm with solid component greater than/equal to 6 mm to <8 mm OR with a new or growing <4 mm solid component; endobronchial nodule. MANAGEMENT: [address] Chest without contrast; PET/CT may be used when there is a greater than/equal to 8 mm solid component. Electronically authenticated by: YISEL CASTILLO Date: 09/02/2024 09:03
--- OUTSIDE RECORDS SUMMARY | 2024-09-01 10:16 | XMS_ITS | CCD ---
Author Organization [facility] Care Team Providers Care Sales Property Manager Name Role Phone MD Caesar Glover Primary Care Provider MD Angel Betancourt Attending Provider MD Caesar Glover Attending Provider [phone] Caesar Glover Unavailable Unavailable Unavailable MD Caesar [...] Unavailable MD Caesar Glover Primary Care Provider [phone] MD Angel Betancourt Attending Provider Ferny White Unavailable CAESAR GLOVER Primary Care Physician [phone] Caesar Glover Unavailable Silas CATALAN Attending Unavailable [...] Care Unav ailable McGuinn II, Dr. Angel Jdae Referring Unavailable McGuinn II, Dr. Angel Jade [...] CAESAR JESUS Primary Care Unavaila ble MD Angle Betancourt Attending Provider DO Ferny White Primary Care Provider Ferny White Primary Care Unavailable Angel Betancourt Attending Unavail able Angel Betancourt Admitting Unavail Caesar Barber MD Primary Care Provider Allergies Allergy Classification Reported Allergen(s) Allergy Type Date of Onset Reaction(s) Facility (20 sources) Cefaclor; Translations: [Ceclor CAPS] Drug Allergy Hives, Itching [facility] 250 DO Work Phone: (17 sources) Cefaclor; Translations: [Cefaclor] Drug Allergy 10-30-19 22 Eruption of skin (disorder), Hives, Itching [facility] (8 sources) Cefaclor; Translations: [Ceclor] Drug Allergy 07-19-19 13 Unknown [facility] (6 sources) Ceclor *CEPHALOSPORINS* Propensity to adverse reactions Unknown [employer] [facility] [employer] Other (6 sources) Allergies Reconciled Propensity to adverse reactions Unknown [employer] Other (6 sources) patient allergy list reviewed by nurse or physicia Propensity to adverse reactions 04-08-20 18 Comment:Done [employer] Other (4 sources) Cephalosporins (Antibiotic); Translations: [Cephalosporins] Allergy to substance 12-06-19 24 Unknown Reaction [facility] Medications Current Medications Medication Drug Class(es) Dates Sig (Normalized) Sig (Original) Aclidinium Delavan (20 sources) Start: 10-29-2021 Aclidinium Delavan (Tudorza Pressair) 400 mcg/actuation aerosol powdr breath activated Active 1 INH INHALATION As Directed October 29, 2021 9:32am Start: 10-29-2021 End: 10-29-2021 Aclidinium Delavan (Tudorza Pressair) 400 mcg/actuation aerosol powdr breath activated Discontinued INHALATION October 29, 2021 9:32am October 29, 2021 9:40am Start: 10-29-2021 End: 12-03-2023 Aclidinium Delavan (Tudorza Pressair) 400 mcg/actuation aerosol powdr breath activated Discontinued 1 INH INHALATION As Directed October 28, 2021 11:00pm December 03, 2023 7:14am Start: 10-29-2021 End: 12-03-2023 Aclidinium Delavan (Tudorza Pressair) 400 mcg/actuation aerosol powdr breath activated Discontinued 1 INH INHALATION As Directed October 29, 2021 12:00am December 03, 2023 8:14am Start: 10-29-2021 Aclidinium Bro mide (Tudorza Pressair) 400 mcg/actuation aerosol powdr breath activated Active 1 INH INHALATION As Directed October 28, 2021 11:00pm Start: 10-29-2021 End: 10-29-2021 Aclidinium Delavan (Tudorza Pressair) 400 mcg/actuation aerosol powdr breath activated Discontinued INHALATION October 28, 2021 11:00pm October 29, 2021 8:40am Start: 10-29-2021 Aclidinium Bro mide (Tudorza Pressair) 400 mcg/actuation aerosol powdr breath activated Active 1 INH INHALATION As Directed October 29, 2021 12:00am Start: 10-29-2021 End: 10-29-2021 Aclidinium [place] (Tudorza Pressair) 400 mcg/actuation aerosol powdr breath [...] 1 puff(s) by inhalation every six hours as needed for wheezing Albuterol Sulfate (Proair Hfa) 90 mcg/actuation Hfa Aerosol Inhaler Discontinued 2 PUFF INHALATION Q6H as needed for SOB/wheezing October 28, 2021 11:00pm December 06, 2023 10:57am Start: 09-29-2021 Albuterol Sulf ate HFA 108 [...] hydrochloride 10 mg extended release oral tablet (12 sources) alpha-Adrenergic Niecy Start: 02-23-2024 End: 02-23-2024 take 1 tablet by mouth once daily at mealtime Alfuzosin 10 mg tablet extended release 24 hr Active 10 MG PO Daily February 23, 2024 1:29pm administer after the same meal each day Start: 12-24-2022 take 1 tablet by kim th once daily alfuzosin 10 mg ER Tab 10 mg = 1 tab(s), Oral, Daily, Refills(s) 0 Start Date: 01/13/23 Status: Ordered amLODIPine 10 mg oral tablet (20 sources) Dihydropyridine Calcium Channel Niecy Start: 07-13-2023 End: 03-16-2024 take 1 tablet by mouth once daily amLODIPine (Norvasc) 10 mg tablet Indications: Essential hypertension TAKE 1 TABLET BY MOUTH DAILY 90 tablet 3 07/13/2023 03/16/2024 Discontinued (Therapy completed) Start: 04-09-2021 take 1 tablet by kim th once daily Amlodipine 5 mg tablet Active 5 MG PO Daily October 28, 2021 11:00pm Start: 07-07-2016 End: 06-14-2023 take 1 tablet by mouth once daily amLODIPine (Norvasc) 10 mg tablet Take 1 tablet (10 mg) by mouth once daily. 0 04/06/2022 06/14/2023 Discontinued (Side effects) apixaban 5 mg oral tablet (19 sources) Factor Xa Inhibitor Start: 08-19-2023 take 1 tablet by mouth twice daily Apixaban 5 mg tablet Active 5 MG PO Twice daily December 02, 2023 11:00pm Start: 09-16-2022 take 1 tablet by kim [...] (Dr/Ec) Discontinued 81 MG PO Daily October 28, 2021 11:00pm December 03, 2023 7:14am take 1 tablet by kim th every week aspirin 81 mg EC tablet Take 1 tablet (81 mg) by mouth 1 (one) time per week. 0 Active atorvastatin 20 mg oral tablet (20 sources) HMG-CoA Reductase Inhibitor Start: 10-19-2023 End: 03-16-2024 take 1 tablet by mouth at bedtime atorvastatin (Lipitor) 20 mg tablet Indications: Mixed hyperlipidemia TAKE 1 TABLET BY MOUTH AT BEDTIME 90 tablet 3 10/19/2023 03/16/2024 Discontinued (Alternate therapy) Start: 03-03-2022 take 1 tablet by kim th once daily at bedtime atorvastatin (Lipitor) 20 [...] mouth every other day fish oil concentrate ([place]-3) 120-180 mg capsule Take 1 capsule (1 g) by mouth every other day. Active take 1 capsule by mouth every ot her day Fish Oil 1000 MG Oral Capsule TAKE 1 CAPSULE EVERY OTHER DAY Quantity: 0 Refills: 0 Ordered: 24-Oct-2021 DO Active Fluticasone Propion-Salmeterol (17 sources) Corticosteroid, beta2-Adrenergic Agonist Start: 10-29-2021 take 1 puff(s) by inhalation twice daily Fluticasone Propion-Salmeterol (Advair Hfa) 230-21 mcg/actuation HFA aerosol inhaler Active 2 PUFF INHALATION Twice daily October 29, 2021 9:32am Start: 10-29-2021 End: 12-06-2023 take 1 puff(s) by inhalation twice daily Fluticasone Propion-Salmeterol (Advair Hfa) 230-21 mcg/actuation HFA aerosol inhaler Discontinued 2 PUFF INHALATION Twice daily October 28, 2021 11:00pm December 06, 2023 10:56am Start: 10-29-2021 End: 12-06-2023 take 1 puff(s) [...] Ordered: 14-Aug-2021 DO Start : 28-Nov-2020 Active take 2 puff(s) by mo ut twice daily fluticasone propion-salmeteroL (Advair HFA) 45-21 mcg/actuation inhaler Inhale 2 puffs 2 times a day. Rinse mouth with water after use to reduce aftertaste and incidence of candidiasis. Do not swallow. Active 30 actuat fluticasone furoate 0.1 mg/actuat / umeclidinium 0.0625 mg/actuat / vilanterol 0.025 mg/actuat dry powder inhaler (10 sources) Anticholinergic, Corticosteroid, beta2-Adrenergic Agonist Start: 12-01-2022 take 1 puff(s) by inhalation once daily Trelegy Ellipta 100-62.5-25 MCG/ACT 1 puff Inhalation Once a day November, Active Start: 06-21-2022 take 1 puff(s) by in halation once daily Trelegy Ellipta 100-62.5-25 mcg blister with device Inhale 1 puff once daily. 06/21/2022 Active Aywzsrgnjnd-Ycofmftwd-Loksus er (3 sources) Start: 12-06-2023 Szadbftyyat-Shiescrxq-Czsncy er (Trelegy Ellipta) 200-62.5-25 mcg blister with device Active 1 INH INHALATION Daily December 05, 2023 11:00pm Start: 12-06-2023 Fluticasone-Um eclidin-Vilanter (Trelegy Ellipta) 200-62.5-25 mcg blister with device Active 1 INH INHALATION Daily December 06, 2023 12:00am folic acid 1 mg oral tablet (2 sources) Start: 03-06-2024 take 1 tablet by mouth once daily Folic Acid 1 mg tablet Active 1 MG PO Daily March 05, 2024 11:00pm hydroCHLOROthiazide 25 mg oral tablet (20 sources) Thiazide Diuretic Start: 06-14-2023 take 1 tablet by mouth once daily hydroCHLOROthiazide (HYDRODiuril) 25 mg tablet Indications: Essential hypertension Take 1 tablet (25 mg) by mouth once daily. 90 tablet 3 06/14/2023 Active Start: 07-07-2016 End: 06-14-2023 take 1 tablet by mouth once daily Hydrochlorothiazide 25 mg tablet Active 25 MG PO Daily October 28, 2021 11:00pm lisinopril 10 mg oral tablet (20 sources) Angiotensin Converting Enzyme Inhibitor Start: 03-16-2024 End: 03-16-2025 take 1 tablet by mouth once daily lisinopril 10 mg tablet Indications: Essential hypertension Take 1 tablet (10 mg) by mouth once daily. 90 tablet 3 03/16/2024 03/16/2025 Active Start: 07-07-2016 End: 06-08-2024 take 1 tablet by mouth once daily lisinopril 30 mg tablet Indications: Essential hypertension Take 1 tablet (30 mg) by mouth once daily. 90 tablet 3 08/30/2023 03/16/2024 Discontinued (Reorder) metoprolol tartrate 50 mg oral tablet (19 sources) beta-Adrenergic Niecy Start: 12-03-2023 take 1 tablet by mouth once daily Metoprolol Tartrate 50 mg tablet Active 50 MG PO Daily December 02, 2023 11:00pm Start: 04-09-2021 Metoprolol Tar trate 50 MG Oral Tablet Quantity: 180 Refills: 0 Ordered: 11-Apr-2021 DO Start : 09-Apr-2021 Complete Metoprolol Tartr ate 50 MG (Prior Auth#:[id number]) Oral Active multivitamin (Daily Multi-Vitamin) tablet (2 sources) take 1 tablet by kim th once daily multivitamin (Daily Multi-Vitamin) tablet Take 1 tablet by mouth once daily. Active take 1 tablet by mouth once hussein y multivitamin (Daily Multi-Vitamin) tablet Take 1 tablet by mouth once daily. 0 Active oxygen (O2) gas therapy (1 source) take 1 dose by inhalation once daily as needed oxygen (O2) gas therapy Inhale 1 each once daily as needed. Active pravastatin sodium 40 mg oral tablet (16 sources) HMG-CoA Reductase Inhibitor Start: take 1 tablet by mouth once daily Pravastatin 40 mg tablet Active 40 MG PO Daily December 02, 2023 11:00pm Start: 04-27-2021 take 1 tablet by kim th once daily Pravastatin Sodium 40 MG Oral Tablet TAKE 1 TABLET DAILY. Quantity: 90 Refills: 3 Ordered: 24-Oct-2021 Angel Betancourt MD Start : 27-Apr-2021 Active spironolactone 25 mg oral tablet (13 sources) Aldosterone Antagonist Start: 07-13-2023 End: 03-16-2024 take 1 tablet by mouth once daily spironolactone (Aldactone) 25 mg tablet Indications: Essential hypertension TAKE 1 TABLET BY MOUTH DAILY 90 tablet 3 07/13/2023 03/16/2024 Discontinued (Discontinued by another clinician) Start: 07-08-2022 take 1 tablet by kim th once daily spironolactone (Aldactone) 25 mg tablet Take 1 tablet (25 mg) by mouth once daily. 0 09/18/2022 Active tadalafil 20 mg oral tablet (14 sources) Phosphodiesterase 5 Inhibitor Start: 12-06-2023 take 1 tablet by mouth every twenty-four hours Tadalafil 20 mg tablet Active 20 MG PO Daily as needed for sexual activity 01 15December 05, 2023 11:00pm administer approximately 30min before sexual activity; do not use more than 1 dose per 24hrs Start: 12-03-2023 End: 12-06-2023 take 1 tablet by mouth once daily Tadalafil 5 mg tablet Discontinued 5 MG PO Daily December 02, 2023 11:00pm December 06, 2023 10:47am Start: 12-01-2022 take 1 tablet by kim th every twenty-four hours Tadalafil 5 MG 1 tablet as needed Orally Once a day November, Active Trelegy Ellipta 100 mcg-62.5 mcg-25 mcg inhalation powder (1 source) Start: 01-08-2023 take 1 puff(s) by inhalation once daily Trelegy Ellipta 100 mcg-62.5 mcg-25 mcg inhalation powder = 1 puff(s), Inhalation, Daily, Refills(s) 0 Start Date: 01/08/23 Status: Ordered ubidecarenone 200 mg oral capsule (1 source) Start: 03-16-2024 End: 03-16-2025 take 1 capsule by mouth once daily coenzyme Q-10 200 mg capsule Indications: Coronary artery disease involving [place] coronary artery of [place] heart without angina pectoris , Mixed hyperlipidemia Take 1 capsule (200 mg) by mouth once daily. 90 capsule 3 03/16/2024 03/16/2025 Active Completed/Discontinued Medications Medication Drug Class(es) Dates Sig [...] 06-Nov-2021 Complete Start: 11-06-2021 End: 12-03-2023 take 2 capsules by mouth three times daily Clindamycin Hcl 300 mg capsule Discontinued 600 MG PO Three times daily 06 19November 05, 2021 11:00pm December 03, 2023 7:14am Start: 11-06-2021 End: 12-03-2023 take 600 mg by mouth three times daily Clindamycin Hcl Discontinued 600 MG PO Three times daily 06 19November 06, 2021 12:00am December 03, 2023 8:14am Multi Vitamin Daily Oral Tablet (20 sources) take 1 tablet by mouth once daily Multi Vitamin Daily Oral Tablet TAKE 1 TABLET DAILY. Quantity: 0 Refills: 0 Ordered: 24-Oct-2021 DO Active Multi Vitamin Daily TABS (3 sources) Multi Vitamin Da radha TABS TAKE 1 TABLET DAILY. Quantity: 0 Refills: 0 Ordered: 24-Oct-2021 DO Active sertraline 100 mg oral tablet (20 sources) Serotonin Reuptake Inhibitor Start: 06-08-2024 End: 06-08-2024 take 1 tablet by mouth once daily Sertraline 100 mg tablet Discontinued 100 MG PO Daily June 08, 2024 12:02pm June 08, 2024 12:06pm 100 mg orally daily; Start: 02-21-2024 End: 06-08-2024 take 1 tablet by mouth once daily Sertraline 50 mg tablet Discontinued 0 .ROUTE .COMPLEX February 21, 2024 10:34am June 08, 2024 12:05pm TAKE 1 TABLET BY MOUTH DAILY Start: 07-07-2016 End: 02-21-2024 take 1 tablet by mouth once daily sertraline (Zoloft) 50 mg tablet Take 1 tablet (50 mg) by mouth once daily. 11/20/2020 Active Trelegy Ellipta AEPB (17 sources) Trelegy [...] Onset: 04-06-2018 Chronic Deficiency and other anemia (2 sources) Anemia; Translations: [Anemia, unspecified] 12-06-2023 Episodic Diabetes [...] Onset: 08-12-2022 01-08-2023 Chronic Hyperplasia of prostate (17 sources) Nocturia due to benign prostatic hypertrophy; Translations: [Benign prostatic hyperplasia with lower urinary tract symptoms] Onset: 11-08-2018 01-08-2023 Chronic Immunizations and screening for infectious disease (14 sources) Patient encounter status; Translations: [Other specified [...] Candidiasis of mouth; Translations: [Candidal stomatitis] Episodic Other aftercare (2 sources) Long-term current use of inhaled steroid; Translations: [intermediate (current) use of inhaled steroids] Episodic Other and unspecified benign neoplasm (2 sources) History of polyp of colon; Translations: [Personal history of colonic polyps] Onset: 01-13-2023 Episodic Other circulatory disease (1 source) Other specified symptoms and signs involving the circulatory and respiratory systems; Translations: [Oth symptoms and signs involving the circ and resp systems] Onset: 05-07-2022 Episodic Other injuries and conditions due to external causes (2 sources) History of fall; Translations: [History of falling] Episodic Other lower respiratory disease (10 sources) [...] of respiratory organs] Episodic Residual codes; unclassified (16 sources) Obstructive sleep apnea syndrome; Translations: [Obstructive sleep apnea (adult) (pediatric)] Onset: 04-06-2018 01-08-2023 Chronic Residual codes; unclassified (6 sources) Sleep apnea; Translations: [Sleep apnea, unspecified] Onset: 04-06-2018 Chronic Residual codes; unclassified (4 sources) Obstructive sleep apnea (adult) (pediatric); Translations: [...] Translations: [Acute respiratory failure with hypoxia] Episodic Substance-related disorders (10 sources) Nicotine dependence, cigarettes, [...] angioplasty implant and graft] Onset: 08-13-2022 Episodic Nonspecific chest pain (9 sources) Chest pain; Translations: [Chest pain, unspecified] Onset: 06-09-2023 06-09-2023 Episodic Other aftercare (2 sources) Long-term current use of anticoagulant; 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] Onset: 03-16-2024 03-16-2024 Episodic Other circulatory disease (20 sources) Carotid bruit; Translations: [Other symptoms involving cardiovascular system] Onset: 06-09-2023 01-08-2023 Episodic Other lower respiratory disease (20 sources) Difficulty breathing; Translations: [Other respiratory abnormalities] Onset: 06-09-2023 06-09-2023 Episodic Other lower respiratory disease (1 source) Other nonspecific abnormal finding of lung field; Translations: [Other nonspecific abnormal finding of lung field] Onset: 08-13-2022 Episodic Other nutritional; endocrine; and metabolic disorders (4 sources) Body mass index 25-29 - overweight; Translations: [Overweight] Onset: 06-14-2023 06-14-2023 Episodic Residual codes; unclassified (2 sources) Family history of diabetes mellitus; Translations: [Family history of diabetes mellitus] Onset: 04-06-2018 Episodic Screening and history of mental health and substance abuse codes (20 sources) Ex-smoker; Translations: [Personal history of tobacco use] Onset: 11-08-2018 01-08-2023 Episodic Comment on above: Quit 2019 <1 ppd; Outside Source Comme nt: Comment on above: Quit 2019 <1 ppd; Unclassified (2 sources) Emphysema; Translations: [Other emphysema] Onset: 04-06-2018 Unclassified (1 source) Permanent atrial fibrillation Unclassified (2 sources) Onset: 06-14-2023 06-14-2023 Results Test Name Value Interpretation Reference Range Facility Basophils Auto (Bld) [#/Vol] on 06-06-2024 Basophils (Bld) [#/Vol] Automated basophil count 0.0-0.1 [facility] Basophils/100 WBC Auto (Bld) on 06-06-2024 Basophils/100 WBC (Bld) Automated basophil % 0.2-2.0 [facility] Eosinophils/100 WBC Auto (Bl d)on 06-06-2024 Eosinophils/100 WBC (Bld) Automated eosinophil % 0.9-7.0 [facility] Erythrocyte distribution wid th Auto (RBC) [Ratio]on 06-06-2024 Erythrocyte distribution width (RBC) [Ratio] Erythrocyte distribution width [Ratio] by Automated count High 11.0-15.0 [facility] Hematocrit Auto (Bld) [Volum e fraction]on 06-06-2024 Hematocrit (Bld) [Volume fraction] Hematocrit [Volume Fraction] of Blood by Automated count 42.0-54.0 [facility] Hemoglobin [Mass/volume] in Bloodon 06-06-2024 Hemoglobin (Bld) [Mass/Vol] Hemoglobin [Mass/volume] in Blood Low 14.0-18.0 [facility] Laboratory - Hematology and Cell countson 06-06-2024 Immature granulocytes/100 WBC (Bld) 0.6 % High 0.0-0.5 [facility] Leukocytes [#/volume] correc clarita for nucleated erythrocytes in Blood by Automated counon 06-06-2024 WBC corrected for nucl RBC Auto (Bld) [#/Vol] Leukocytes [#/volume] corrected for nucleated erythrocytes in Blood by Automated coun 4.0-11.0 [facility] Lymphocytes Auto (Bld) [#/Vo l]on 06-06-2024 Lymphocytes (Bld) [#/Vol] Lymphocytes [#/volume] in Blood by Automated count 1.2-3.8 [facility] Lymphocytes/100 WBC Auto (Bl d)on 06-06-2024 Lymphocytes/100 WBC (Bld) Lymphocytes/100 leukocytes in Blood by Automated count Low 20.5-60.0 [facility] MCH Auto (RBC) [Entitic mass ]on 06-06-2024 MCH (RBC) [Entitic mass] MCH [Entitic mass] by Automated count 25.9-34.0 [facility] MCHC Auto (RBC) [Mass/Vol]on 06-06-2024 MCHC (RBC) [Mass/Vol] MCHC [Mass/volume] by Automated count 29.9-35.2 [facility] MCV Auto (RBC) [Entitic vol] on 06-06-2024 MCV (RBC) [Entitic vol] MCV [Entitic volume] by Automated count High 80.0-94.0 [facility] Monocytes Auto (Bld) [#/Vol] on 06-06-2024 Monocytes (Bld) [#/Vol] Automated blood monocyte count 0.3-0.8 [facility] Monocytes/100 WBC Auto (Bld) on 06-06-2024 Monocytes/100 WBC (Bld) Automated monocyte % 1.7-12.0 [facility] Neutrophils Auto (Bld) [#/Vo l]on 06-06-2024 Neutrophils (Bld) [#/Vol] Neutrophils [#/volume] in Blood by Automated count High 1.4-6.5 [facility] Neutrophils/100 WBC Auto (Bl d)on 06-06-2024 Neutrophils/100 WBC (Bld) Automated neutrophil % 43.0-75.0 [facility] No Panel Informationon 06-06 Eosinophils # (Auto) 0.2 10 3/uL 0.0-0.[address] [facility] Immature Granulocyte # (Auto) 0.05 10 3/uL High 0.00-0.03 [facility] Platelet mean volume Auto (B ld) [Entitic vol]on 06-06-2024 Platelet mean volume (Bld) [Entitic vol] Platelet mean volume [Entitic volume] in Blood by Automated count 9.5-13.5 [facility] Platelets Auto (Bld) [#/Vol] on 06-06-2024 Platelets (Bld) [#/Vol] Platelets [#/volume] in Blood by Automated count 150-450 [facility] RBC Auto (Bld) [#/Vol]on RBC (Bld) [#/Vol] Erythrocytes [#/volu me] in Blood by Automated count Low 4.70-6.10 [facility] Basophils Auto (Bld) [#/Vol] on 03-06-2024 Basophils (Bld) [#/Vol] 0.0 10 3/uL 0.0-0.1 [facility] Basophils/100 WBC Auto (Bld) on 03-06-2024 Basophils/100 WBC (Bld) 0.3 % 0.2-2.0 [facility] Eosinophils/100 WBC Auto (Bl d)on 03-06-2024 Eosinophils/100 WBC (Bld) 2.5 % 0.9-7.0 [facility] Erythrocyte distribution wid th Auto (RBC) [Ratio]on 03-06-2024 Erythrocyte distribution width (RBC) [Ratio] 15.4 % High 11.0-15.0 [facility] Hematocrit Auto (Bld) [Volum e fraction]on 03-06-2024 Hematocrit (Bld) [Volume fraction] 41.2 % Low 42.0-54.0 [facility] Hemoglobin [Mass/volume] in Bloodon 03-06-2024 Hemoglobin (Bld) [Mass/Vol] 13.2 g/dL Low 14.0-18.0 [facility] Iron binding capacity [Mass/ volume] in Serum or Plasmaon 03-06-2024 Iron binding capacity [Mass/Vol] 309.0 ug/dL 250.0-450.0 [facility] Iron saturation [Mass Fracti on] in Serum or Plasmaon 03-06-2024 Iron saturation [Mass fraction] 36.6 % [facility] Laboratory - Chemistry and C hemistry - challengeon 03-06-2024 Cobalamin (Vitamin B12) [Mass/Vol] 871.0 pg/mL 193.0-986.0 [facility] Ferritin [Mass/Vol] 406.0 ng/mL High 26.0-388.0 [facility] Iron [Mass/Vol] 113.0 ug/dL 65.0-175.0 [facility] Laboratory - Hematology and Cell countson 03-06-2024 Immature granulocytes/100 WBC (Bld) 0.5 % 0.0-0.5 [facility] Leukocytes [#/volume] correc clarita for nucleated erythrocytes in Blood by Automated counon 03-06-2024 WBC corrected for nucl RBC Auto (Bld) [#/Vol] 8.7 10 3/uL 4.0-11.0 [facility] Lymphocytes Auto (Bld) [#/Vo l]on 03-06-2024 Lymphocytes (Bld) [#/Vol] 1.6 10 3/uL 1.2-3.8 [facility] Lymphocytes/100 WBC Auto (Bl d)on 03-06-2024 Lymphocytes/100 WBC (Bld) 18.7 % Low 20.5-60.0 [facility] MCH Auto (RBC) [Entitic mass ]on 03-06-2024 MCH (RBC) [Entitic mass] 31.4 pg 25.9-34.0 [facility] MCHC Auto (RBC) [Mass/Vol]on 03-06-2024 MCHC (RBC) [Mass/Vol] 32.0 g/dL 29.9-35.2 [facility] MCV Auto (RBC) [Entitic vol] on 03-06-2024 MCV (RBC) [Entitic vol] 97.9 fL High 80.0-94.0 [facility] Monocytes Auto (Bld) [#/Vol] on 03-06-2024 Monocytes (Bld) [#/Vol] 0.6 10 3/uL 0.3-0.8 [facility] Monocytes/100 WBC Auto (Bld) on 03-06-2024 Monocytes/100 WBC (Bld) 6.9 % 1.7-12.0 [facility] Neutrophils Auto (Bld) [#/Vo l]on 03-06-2024 Neutrophils (Bld) [#/Vol] 6.2 10 3/uL 1.4-6.5 [facility] Neutrophils/100 WBC Auto (Bl d)on 03-06-2024 Neutrophils/100 WBC (Bld) 71.1 % 43.0-75.0 [facility] No Panel Informationon 03-06 Eosinophils # (Auto) 0.2 10 3/uL 0.0-0.[address] [facility] Folate 7.50 ng/mL Low 8.60-58.90 [facility] Immature Granulocyte # (Auto) 0.04 10 3/uL High 0.00-0.03 [facility] Platelet mean volume Auto (B ld) [Entitic vol]on 03-06-2024 Platelet mean volume (Bld) [Entitic vol] 11.0 fL 9.5-13.5 [facility] Platelets Auto (Bld) [#/Vol] on 03-06-2024 Platelets (Bld) [#/Vol] 171 10 3/uL 150-450 [facility] RBC Auto (Bld) [#/Vol]on RBC (Bld) [#/Vol] 4.21 10 6/uL Low 4.70-6.10 [facility] Ambulatory Visit Summaryon 0 03-03-2023 [...] polyps Pulmonary emphysema Sick sinus syndrome Normal [facility] General Surgery Office/Clini c Noteon 03-03-2023 [...] Immunizations Vaccine Date Status Comments SARS-CoV-2 (COVID-19) mRNAMUL.ORD![id number] 05/18/2022 Recorded 2023-01-08: TPV70 SARS-CoV-2 (COVID-19) mRNA BNT-162b2 vax 05/21/2021 Recorded 2023-01-08: TPV70 SARS-CoV-2 (COVID-19) mRNA BNT-162b2 vax 11/13/2020 Recorded SARS-CoV-2 (COVID-19) mRNA BNT-162b2 vax 10/23/2020 Recorded Normal [facility] Comment on above: Result Comment: Elec tronically Signed By: HOSSEIN BREAUX, Silas Wong\Date and Time Signed: 03/03/23 15:26 EDT Reminderson 03-03-2023 Reminders - From: Meghan Gonzáles LPN To: N - Clinical; Sent: 03/03/2023 15:23:27 EDT Show up: 01/11/2033 07:00:00 EDT Subject: colonoscopy recall Due Date/Time: 02/10/2033 07:00:00 EDT Reminder/Recall Patient due for screening colonoscopy 02/10/2033. [facility] Outside Colonoscopyon 2022 Outside Colonoscopy [id number]#1.00CD:127 [facility] Pathology Noteon 02-16-2023 Pathology Note [id number]#1.00CD:127 [facility] Pre-Certification Formon Pre-Certification Form [id number]#1.00CD:127 [facility] Consultation Noteon 02-01-20 Consultation Note [id number]#1.00CD:127 [facility] Formson 01-23-2023 Forms [id number]#1.00CD:127 [facility] Consent for Procedure/Surger yon 01-14-2023 Consent for Procedure/Surgery [id number]#1.00CD:127 Normal [facility] Facesheeton 01-14-2023 Facesheet [id number]#1.00CD:127 Normal [facility] Ambulatory Visit Summaryon 0 01-13-2023 Ambulatory Visit Summary ALAN HERRERA :1945 MRN:[id number] Visit Date:01/13/2023 Ambulatory Visit Instructions Your Diagnosis [...] polyps Pulmonary emphysema Sick sinus syndrome Normal [facility] Physician Referralon 023 Physician Referral [id number]#1.00CD:127 Normal [facility] Office Visit (Cardiology)on 09-18-2022 Follow-up [...] 02:52PM Hea (more content not included)... Normal [employer] Tobacco Screening.on 023 Adult depression screening assessment No [facility] [place] [facility] [place] Work Phone: Fall risk assessment a) No falls within the last year [facility] [place] DO Work Phone: Tobacco use status CPHS b) No [facility] [place] [facility] DO Work Phone: ARTERIAL BLOOD GAS,CO-OXon 0 08-13-2022 BASE EXCESS-BLOOD -0.9 mmol/L Normal -2.0 - 3.0 [facility] Comment on above: Performed By: #### A BGC2 #### [facility] [address] [place] [address] BICARB, CALCULATED 22.2 mmol/L Normal 22.0 - 26.0 [facility] Comment on above: Performed By: #### A BGC2 #### [facility] [address] [place] [address] CO HGB 2.0 % Abnormal [facility] Comment on above: Result Comment: REF VALUES NONSMOKERS 0.5-1.5% SMOKERS 0.5-10.0% Performed By: #### A BGC2 #### [facility] [address] [place] [address] DEOXY HGB 3.2 % Normal 0.0 - 5.0 [facility] Comment on above: Performed By: #### A BGC2 #### [facility] [address] [place] [address] Hemoglobin (Bld) [Mass/Vol] 15.0 g/dL Normal 13.5 - 17.5 [facility] Comment on above: Performed By: #### A BGC2 #### [facility] [address] [place] [address] MET HGB 0.9 % Normal 0.0 - 1.5 [facility] Comment on above: Performed By: #### A BGC2 #### [facility] [address] [place] [address] OXY HGB 93.9 % Low 94.0 - 98.0 [facility] Comment on above: Performed By: #### A BGC2 #### [facility] [address] [place] [address] Oxygen (Bld) [Partial pressure] 76 mm[Hg] Low 85 - 95 [facility] Comment on above: Performed By: #### A BGC2 #### [facility] [address] [place] [address] PATIENT TEMPERATURE 37.0 degrees C Normal [facility] Comment on above: Result Comment: NOTE : PATIENT RESULTS ARE NOT CORRECTED FOR TEMPERATURE. Performed By: #### A BGC2 #### [facility] [address] [place] [address] PCO2 32 mmHg Low 38 - 42 [facility] Comment on above: Performed By: #### A BGC2 #### [facility] [address] [place] [address] pH (Bld) 7.45 [pH] High 7.38 - 7.42 [facility] Comment on above: Performed By: #### A BGC2 #### [facility] [address] [place] [address] SO2 97 % Normal 94 - 100 [facility] Comment on above: Performed By: #### A BGC2 #### [facility] [address] 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 COMPARISON: No comparison images were available for review. ACCESSION NUMBER(S): [id number] ORDERING CLINICIAN: FERNY GARCIA TECHNIQUE: Using helical [...] with the findings as stated by residential manager Elaine Barkley MD. This study was interpreted at [facility], [place], [place]. Electronically signed by: NELDA PORRAS MD Normal [facility] ECHOCARDIO M/2D COMPLETEon 0 08-10-2022 ECHOCARDIO M/2D COMPLETE Patient: ALAN HERRERA Exam Date: 08/10/2022 : 1945 Gender:M Ordering : FERNY GARCIA M.D. Admission #: [id number] Family : DR CAESAR GLOVER M.D. Order #: [id number] CLICK HERE TO VIEW EXAM ECHOCARDIOGRAM REPORT [...] M.D. on 08/10/2022 at 13:49 Normal [facility] PROF CHEM 8 (BAS METB)on Anion gap [Moles/Vol] 13.2 mmol/L Normal [facility] Comment on above: Performed By: #### B MP #### [facility] [address] [place] [address] Dr. Keya Kuhn Calcium [Mass/Vol] 9.1 mg/dL Normal 8.5-10.1 [facility] Comment on above: Performed By: #### B MP #### [facility] [address] [place] [address] [address] Keya Kuhn Chloride [Moles/Vol] 108 mmol/L Critically high 98-107 [facility] Comment on above: Performed By: #### B MP #### [facility] [address] [address] [address] Keya Kuhn CO2 [Moles/Vol] 26.6 mmol/L Normal 21.0-32.0 [facility] Comment on above: Performed By: #### B MP #### [facility] [address] [address] [address] Keya Kuhn Creatinine [Mass/Vol] 0.87 mg/dL Normal 0.70-1.30 [facility] Comment on above: Performed By: #### B MP #### [facility] [address] [address] [address] Keya Kuhn EGFR-AF PUERTO RICAN >60 Normal >=60 [facility] Comment on above: Performed By: #### B MP #### [facility] [address] [address] [address] Keya Kuhn EGFR-NON AF PUERTO RICAN >60 Normal >=60 [facility] Comment on above: Performed By: #### B MP #### [facility] [address] [address] [address] Keya Kuhn Glucose [Mass/Vol] 112 mg/dL Critically high 74-106 [facility] Comment on above: Performed By: #### B MP #### [facility] [address] [address] [address] Keya Kuhn Potassium [Moles/Vol] 3.8 mmol/L Normal 3.5-5.1 [facility] Comment on above: Performed By: #### B MP #### [facility] [address] [address] [address] Keya Kuhn Sodium [Moles/Vol] 144 mmol/L Normal 136-145 [facility] Comment on above: Performed By: #### B MP #### [facility] [address] [address] [address] Keya Kuhn Urea nitrogen [Mass/Vol] 17.0 mg/dL Normal 7.0-18.0 [facility] Comment on above: Performed By: #### B MP #### [facility] [address] [address] [address] Keya Kuhn Urea nitrogen/Creatinine [Mass ratio] 19.5 mg/mg Normal [facility] Comment on above: Performed By: #### B MP #### [facility] [address] [address] [address] Keya Kuhn LIPID PROFILEon 07-02-2022 CHOL-HDL RATIO NORM SEE BELOW Normal [facility] Comment on above: Result Comment: 3.3 - 4.4 LOW RISK 4.4 - 7.1 AVERAGE RISK 7.1 - 11.0 MODERATE RISK >11.0 HIGH RISK Performed By: #### L IPID, AST, BMP, ALT #### [facility] [address] [address] [address] Keya Kuhn Cholesterol [Mass/Vol] 112 mg/dL Normal <=200 [facility] Comment on above: Performed By: #### L IPID, AST, BMP, ALT #### [facility] [address] [address] [address] Keya Kuhn Cholesterol in HDL [Mass/Vol] 43 mg/dL Normal 40-60 [facility] Comment on above: Performed By: #### L IPID, AST, BMP, ALT #### [facility] [address] [address] [address] Keya Kuhn Cholesterol in LDL [Mass/Vol] 56.0 mg/dL Normal [facility] Comment on above: Performed By: #### L IPID, AST, BMP, ALT #### [facility] [address] [address] [address] Keya Kuhn Cholesterol.total/Ch olesterol in HDL [Mass ratio] 2.6 {ratio} Normal [facility] Comment on above: Performed By: #### L IPID, AST, BMP, ALT #### [facility] [address] [address] [address] Keya Kuhn HDL NORMAL > or = 60 mg/dl - LO W CARDIOVASCULAR RISK <40 mg/dl - HIGH CARDIOVASCULAR RISK Normal [facility] Comment on above: Performed By: #### L IPID, AST, BMP, ALT #### [facility] [address] [address] [address] Keya Kuhn LDL CALC NORMAL SEE BELOW Normal [facility] Comment on above: Result Comment: <100 mg/dl OPTIMAL 100 - 129 mg/dl NEAR OR ABOVE OPTIMAL 130 - 159 mg/dl BORDERLINE HIGH 160 - 189 mg/dl HIGH >190 mg/dl VERY HIGH Performed By: #### L IPID, AST, BMP, ALT #### [facility] [address] [address] [address] Keya Kuhn Triglyceride [Mass/Vol] 65 mg/dL Normal <=150 [facility] Comment on above: Performed By: #### L IPID, AST, BMP, ALT #### [facility] [address] [address] [address] Keya Kuhn VLDL CALC 13.0 mg/dL Normal [facility] Comment on above: Performed By: #### L IPID, AST, BMP, ALT #### [facility] [address] [address] [address] Keya Kuhn PROF CHEM 8 (BAS METB)on Anion gap [Moles/Vol] 11.5 mmol/L Normal [facility] Comment on above: Performed By: #### L IPID, AST, BMP, ALT #### [facility] [address] [address] [address] Keya Kuhn Calcium [Mass/Vol] 9.0 mg/dL Normal 8.5-10.1 [facility] Comment on above: Performed By: #### L IPID, AST, BMP, ALT #### [facility] [address] [place] [address] Dr. Keya Kuhn Chloride [Moles/Vol] 104 mmol/L Normal 98-107 [facility] Comment on above: Performed By: #### L IPID, AST, BMP, ALT #### [facility] [address] [address] [address] Keya Kuhn CO2 [Moles/Vol] 29.6 mmol/L Normal 21.0-32.0 [facility] Comment on above: Performed By: #### L IPID, AST, BMP, ALT #### [facility] [address] [address] [address] Keya Kuhn Creatinine [Mass/Vol] 0.82 mg/dL Normal 0.70-1.30 [facility] Comment on above: Performed By: #### L IPID, AST, BMP, ALT #### [facility] [address] [address] [address] Keya Kuhn EGFR-AF PUERTO RICAN >60 Normal >=60 [facility] Comment on above: Performed By: #### L IPID, AST, BMP, ALT #### [facility] [address] [address] [address] Keya Kuhn EGFR-NON AF PUERTO RICAN >60 Normal >=60 [facility] Comment on above: Performed By: #### L IPID, AST, BMP, ALT #### [facility] [address] [address] [address] Keya Kuhn Glucose [Mass/Vol] 118 mg/dL Critically high 74-106 [facility] Comment on above: Performed By: #### L IPID, AST, BMP, ALT #### [facility] [address] [address] [address] Keya Kuhn Potassium [Moles/Vol] 3.1 mmol/L Critically low 3.5-5.1 [facility] Comment on above: Performed By: #### L IPID, AST, BMP, ALT #### [facility] [address] [address] [address] Keya Kuhn Sodium [Moles/Vol] 142 mmol/L Normal 136-145 [facility] Comment on above: Performed By: #### L IPID, AST, BMP, ALT #### [facility] [address] [address] [address] Keya Kuhn Urea nitrogen [Mass/Vol] 14.0 mg/dL Normal 7.0-18.0 [facility] Comment on above: Performed By: #### L IPID, AST, BMP, ALT #### [facility] [address] [place] [address] [address] Keya Kuhn Urea nitrogen/Creatinine [Mass ratio] 17.1 mg/mg Normal [facility] Comment on above: Performed By: #### L IPID, AST, BMP, ALT #### [facility] [address] [place] [address] [address] Keya Kuhn SGIndependencen 07-02-2022 AST [Catalytic activity/Vol] 22 U/L Normal 15-37 [facility] Comment on above: Performed By: #### L IPID, AST, BMP, ALT #### [facility] [address] [place] [address] [address] Keya Kuhn [facility] 07-02-2022 ALT [Catalytic activity/Vol] 21 U/L Normal 16-63 [facility] Comment on above: Performed By: #### L IPID, AST, BMP, ALT #### [facility] [address] [place] [address] Keya Kuhn Office Visit (Cardiology)on 06-18-2022 [...] Recorded: 18Jun2022 12:59PM Heart Rate68, L Radial Qqpdsxaw050, LUE, Sitting Vjpxyoiyg47, LUE, Sitting Height5 ft 11 in Bkcqsp071 lb BMI Rmtkqjuvuy73.2 kg/m2 BSA Calculated2.09 Tobacco Useb) No Falls [...] regular r (more content not included)... Normal [employer] Tobacco Screening.on 022 Fall risk assessment a) No falls [facility] the [facility] Work Phone: Tobacco use status CP b) No [facility] [place] [address] DO Work Phone: VAS LAB Carotid Artery Dupl ex Ultrasounon 05-07-2022 VAS LAB Carotid Artery Duplex Ultrasoun [address], [address], [place] [address] Vascular Lab Report Carotid Artery Duplex Ultrasound Patient Name: ALAN Calderon Anisa Physician: [id number] Danilo Paniagua MD, [facility] Study Date: 05/07/2022 Referring ANGEL BETANCOURT Physician: MRN/PID: [id number] PCP: Caesar Glover Accession/Order#: [id number] Report to: Date of : 1945 Technologist: Dee Corey RDCS, RVT Gender: M Technologist 2: Admission Status: Outpatient Location Performed: [facility] Diagnosis/ICD: R09.89-Other specified symptoms and signs involving the circulatory and respiratory systems Indication: HTN, Hyperlipidemia, Former Smoker, CAD, Complete Heart Block, Sick Sinus Syndrome, Pacemaker, Aortic Stenosis, COPD-on O2 at 2l Procedure/CPT: 16687 Cerebrovascular Carotid Duplex scan complete-[id number] CONCLUSIONS: Right Carotid: Findings are consistent with [...] cm/s Right Left ICA/CCA Ratio 0.8 0.9 [id number] Danilo Paniagua MD, FACC Final Normal [facility] VASC LAB Carotid Artery Dupl ex Ultrasoundon 05-07-2022 US.doppler Carotid arteries Please click on the link to view the study images [facility] Work Phone: US.doppler Carotid arteries [facility] [place] [address] DO Work Phone: Office Visit (Cardiology)on [...] For - Scheduling,Retrospective By Protocol Authorization; Requested for:[id number]; Laterality : Bilateral Essential hypertension Renew: amLODIPine Besylate 10 MG Oral Tablet; TAKE 1 TABLET DAILY Overweight with body mass index (BMI) of 28 to 28.9 in adult Healthy Weight Tips; Status:Complete - Retrospective Authorization; Done: [id number] Some eating tips that can help you lose weight.; Status:Complete - Retrospective Authorization; Done: [id number] Patient Instructions Please bring all medicines, vitamins, [...] Recorded: 06Apr2022 08:55AM Heart Rate80, L Radial Bqtzlfvw128, LUE, Sitting Ldmcduelj11, LUE, Sitting Height5 ft 11 in Bnnped342 lb BMI Rownybprtl09.03 kg/m2 BSA Calculated2.11 Tobacco Useb) No Falls [...] no mass (more content not included)... Normal [employer] Tobacco Screening.on 022 Fall risk assessment a) No falls within the last year [facility] [place] [address] DO Work Phone: Tobacco use status CP b) No [facility] [place] 250 DO Work Phone: [facility] CARDIAC STRESS/REST INJE CTIONon 03-04-2022 [facility] CARDIAC STRESS/REST INJECTION Patient Name: ALAN HERRERA STUDY: MYOCARDIAL PERFUSION STRESS TEST WITH LEXISCAN Performing facility: [facility], [address] [place] [address], [address], [address] Provider: Mignon Betacnourt MD, FACC PCP: Dr. Sukhjinder Glover Supervising provider: Danilo Paniagua MD, FACC INDICATION: Angina CAD; HISTORY: Gender: M; Age: 76 y/o ; Height: 180.34 cm; Weight: 91.2919264 kg. CAD; High Cholesterol; HTN; PPM Chest Pain; SOB; Quit smoking unknown years ago. Cardiac catheterization on 2014. PTCA on 2014. COMPARISON: Previous nuclear testing completed [id number] at [facility]. ACCESSION NUMBER(S): [id number]; [id number]; [id number] ORDERING CLINICIAN: ANGEL BETANCOURT TECHNIQUE: ONE DAY [...] Electronically signed by: DANILO PANIAGUA MD Normal [facility] No Panel Informationon 03-04 Normal [facility] [place] [address] [place] Work Phone: Office Visit [...] Med Order; Status:Hold For - Scheduling; Requested for:[id number]; Radiologist to Determine Optimal Study : Y What are the patient's signs and symptoms? : SOB, angina Hyperlipidemia Stop: Pravastatin Sodium 40 MG Oral Tablet Start: Atorvastatin Calcium 20 MG Oral Tablet; TAKE 1 TABLET AT BEDTIME Overweight with body mass index (BMI) of 28 to 28.9 in adult Healthy Weight Tips; Status:Complete; Done: [id number] Some eating tips that can help you lose weight.; Status:Complete; Done: [id number] SocHx: Former smoker Tobacco Use Screening; Status:Complete; Done: [id number] Patient Instructions Please bring all medicines, vitamins, [...] negative for complaint. Vitals Vital Signs Recorded: [id number] 09:34AM Heart Rate60, L Radial Yogeuohm866, LUE, Sitting Tcrndrvtx88, LUE, Sitting Height5 ft 11 in Oizcib013 lb BMI Xrxsdwjrlm41.17 kg/m2 BSA Calculated2.12 Tobacco Useb) No PHQ-2 [...] carotid pulse (more content not included)... Normal [employer] Tobacco Screening.on 022 Adult depression screening assessment No [facility] [place] [address] DO Work Phone: Fall risk assessment a) No falls within the last year [facility] [place] [address] DO Work Phone: Tobacco use status CPHS b) No [facility] [place] 250 DO Work Phone: CT LUNG [...] OSIRIS JIMENEZ Date: 2022-02-03 13:27 Normal [facility] HEMOGLOBINon 12-23-2021 Hemoglobin (Bld) [Mass/Vol] 14.7 g/dL Normal 14.0-18.0 [facility] Comment on above: Performed By: #### H GB #### [facility] [address] [place], [place] [address] Dr. Keya Kuhn PULMONARY FUNCTION TESTon PULMONARY FUNCTION TEST [facility] [place], [place] NAME: ALAN HERRERA DATE OF : MEDICAL REC#: [id number] SURVEILLANCE CAMERA TECHNICIAN: [id number] [facility], TRANS[facility] DATE: 12/23/2021 08:58:00 [employer] DATE: 12/24/2021 03:00 DICTATING PHYSICIAN: STALIN ONOFRE [...] STALIN ONOFRE . 12/24/2021 11:07:00 Normal [facility] Activated partial thrombopla stin time (aPTT) in platelet poor plasma by coagulation aOrdered By: Angel Betancourt on 04-21-2022 aPTT Coag (PPP) [Time] 34.6 s 25.1-36.5 [facility] Laboratory - CoagulationOrde red By: Angel Betancourt on 11-06-2021 PT Coag (PPP) [Time] 12.8 s 9.0-12.9 [facility] No Panel Informationon 11-06 1.1\S\1.1 Normal [facility] 250 DO Work Phone: Comment [...] valves: 3 - 4.5 12.8\S\12.8 Normal 9.0-12.9 [facility] [place] 250 DO Work Phone: 34.6\S\34.6 Normal 25.1-36.5 [facility] [place] 250 DO Work Phone: Comment on above: PERFORMED BY:[facility] [place], [place] [phone] MEDICAL DIRECTORROSCOE LEMUS M.D. Platelet poor plasma interna tional normalized ratio (INR) by coagulation assay (relatOrdered By: Angel Betancourt on 11-06-2021 INR Coag (PPP) [Relative time] 1.1 {INR} [facility] Comment on above: INR Therapeutic Rang [...] Radiologyon 11-06-2021 Portable XR Chest Views Normal [facility] [place] [address] DO Work Phone: XR Chest 2 Views Normal -[facility] [place] [address] DO Work Phone: COVID-19 Positive/NegativeOr dered By: Angel Betancourt on 11-04-2021 SARS-CoV-2 (COVID-19) N gene OG+probe Ql (Resp) Negative Negative [facility] Comment on above: Testing for SARS-CoV -2 by RT-PCRThis test was developed and its performance characteristics determined by [employer] ([employer]) and validated at the [facility]. This test has not been FDA [...] developed and its performance characteristics determined by [employer] ([employer]) and validated at the [facility]. This test has not been FDA [...] 10-29-2021 Basophils (Bld) [#/Vol] 0.0 10*3/uL 0.0-0.2 [facility] Basophils/100 WBC Auto (Bld) Ordered By: Angel Betancourt on 10-29-2021 Basophils/100 WBC (Bld) 0.6 % [facility] Blood hemoglobin measurement (mass/volume)Ordered By: Angel Betancourt on 10-29-2021 Hemoglobin (Bld) [Mass/Vol] 14.9 g/dL 13.0-17.0 [facility] Blood leukocytes automated c ount (number/volume)Ordered By: Angel Betancourt on 10-29-2021 WBC (Bld) [#/Vol] 7.6 10*3/uL 4.5-11.0 [facility] Creatinine and Glomerular fi ltration rate.predicted panel (S/P/Bld)Ordered By: Angel Betancourt on 10-29-2021 Creatinine [Mass/Vol] 0.83 mg/dL 0.64-1.27 [facility] Eosinophils Auto (Bld) [#/Vo l]Ordered By: Angel Betancourt on 10-29-2021 Eosinophils (Bld) [#/Vol] 0.2 10*3/uL 0.0-0.45 [facility] Eosinophils/100 WBC Auto (Bl d)Ordered By: Angel Betancourt on 10-29-2021 Eosinophils/100 WBC (Bld) 2.9 % [facility] Erythrocyte distribution wid th Auto (RBC) [Ratio]Ordered By: Angel Betancourt on 10-29-2021 Erythrocyte distribution width (RBC) [Ratio] 14.8 % 12.0-14.8 [facility] Estimated glomerular filtrat ion rate (GFR) non- AmericanOrdered By: Angel Betancourt on 10-29-2021 GFR/1.73 sq M.predicted among non-blacks MDRD (S/P/Bld) [Vol rate/Area] > 60 mL/Min [facility] Hematocrit Auto (Bld) [Volum e fraction]Ordered By: Angel Betancourt on 10-29-2021 Hematocrit (Bld) [Volume fraction] 45.8 % 38.8-50.0 [facility] Laboratory - Hematology and Cell countsOrdered By: Angel Betancourt on 10-29-2021 Nucleated RBC/100 WBC (Bld) [Ratio] 0.1 % 0-0.5 [facility] Lymphocytes Auto (Bld) [#/Vo l]Ordered By: Angel Betancourt on 10-29-2021 Lymphocytes (Bld) [#/Vol] 1.7 10*3/uL 1.00-4.8 [facility] Lymphocytes/100 WBC Auto (Bl d)Ordered By: Angel Betancourt on 10-29-2021 Lymphocytes/100 WBC (Bld) 21.8 % [facility] MCH Auto (RBC) [Entitic mass ]Ordered By: Angel Betancourt on 10-29-2021 MCH (RBC) [Entitic mass] 30.1 pg 27.5-35.2 [facility] MCHC Auto (RBC) [Mass/Vol]Or dered By: Angel Betancourt on 10-29-2021 MCHC (RBC) [Mass/Vol] 32.6 g/dL 32.5-35.6 [facility] MCV Auto (RBC) [Entitic vol] Ordered By: Angel Betancourt on 10-29-2021 MCV (RBC) [Entitic vol] 92.3 fL 83.5-101 [facility] Monocytes Auto (Bld) [#/Vol] Ordered By: Angel Betancourt on 10-29-2021 Monocytes (Bld) [#/Vol] 0.6 10*3/uL 0.0-0.8 [facility] Monocytes/100 WBC Auto (Bld) Ordered By: Angel Betancourt on 10-29-2021 Monocytes/100 WBC (Bld) 7.6 % [facility] Neutrophils Auto (Bld) [#/Vo l]Ordered By: Angel Betancourt on 10-29-2021 Neutrophils (Bld) [#/Vol] 5.1 10*3/uL 1.8-7.7 [facility] Neutrophils/100 WBC Auto (Bl d)Ordered By: Angel Betancourt on 10-29-2021 Neutrophils/100 WBC (Bld) 67.1 % [facility] No Panel InformationOrdered By: Angel Betancourt on 10-29-2021 Estimated GFR () > 60 mL/Min [facility] Comment on above: GFR estimated refere nce range: According to KDOQI guidelines, <60 ml/min/1.73m2 is sufficient to diagnose a patient with chronic kidney disease. Pharmacy Creatinine Clearance (Chem N/A [facility] No Panel Informationon 10-29 9.6\S\9.6 Normal 8.2-10.2 [facility] 600 DO Work Phone: Comment on above: PERFORMED BY:[facility] EVELINA JA[place], [place] [id number] MEDICAL DIRECTORROSCOE LEMUS M.D. 23.9\S\23.9 Normal 22.0-30.0 [facility] k 600 DO Work Phone: [phone] 105\S\105 Normal 95-114 [facility] k 600 DO Work Phone: 3.5\S\3.5 Normal 3.5-5.1 [facility] k 600 DO Work Phone: 139\S\139 Normal 136-146 [facility] k 600 DO Work Phone: [phone] > [phone] [facility] k 600 DO Work Phone: [phone] Comment on above: GFR estimated refere nce range: According to KDOQI guidelines, <60 ml/min/1.73m2 is sufficient to diagnose a patient with chronic kidney disease. 0.83\S\0.83 Normal 0.64-1.27 [facility] [employer] k 600 DO Work Phone: 14\S\14 Normal 9-23 [facility] [employer] k 600 DO Work Phone: 117\S\117 above high threshold 70-100 [facility] HospitalAd[facility]Saint [facility] Hospitalw[facility]ley k 600 DO Work Phone: Comment on above: Random Glucose Refer ence Range is dependent on time and content of last meal. Glucose of more than 200 mg/dL in a nonstressed, ambulatory subject supports the diagnosis of Diabetes Mellitus. ADA recommended reference range 67.1\S\67.1 Normal . [facility] [employer] k 600 DO Work Phone: 9.0\S\9.0 Normal 6.6-10.1 [facility] HospitalHealthCentralMesfin k 600 DO Work Phone: 196\S\196 Normal 150-450 [facility] DO Work Phone: 14.8\S\14.8 Normal 12.0-14.8 [facility] [employer] k 600 DO Work Phone: 32.6\S\32.6 Normal 32.5-35.6 [facility] [employer] (P)[facility] k 600 DO Work Phone: 30.1\S\30.1 Normal 27.5-35.2 [facility] DO Work Phone: 5.1\S\5.1 Normal 1.8-7.7 [facility] DO Work Phone: 0.1\S\0.1 Normal 0-0.5 [facility] [employer] (P)[facility] k 600 DO Work Phone: 0.6\S\0.6 Normal 0.0-0.8 [facility] HospitalHealthCentralSaint John[facility] Hospitalwesley k 600 DO Work Phone: 2.9\S\2.9 Normal . [facility] [employer] k 600 DO Work Phone: 7.6\S\7.6 Normal 4.1-10.5 [facility] k 600 DO Work Phone: 21.8\S\21.8 Normal . [facility] k 600 DO Work Phone: 0.0\S\0.0 Normal 0.0-0.2 [facility] 600 DO Work Phone: Comment on above: PERFORMED BY:[facility] EVELINA JAUREGU[place]ERTR[place], [place] [phone] MEDICAL DIRECTORROSCOE LEMUS M.D. 0.2\S\0.2 Normal 0.0-0.45 [facility] k 600 DO Work Phone: 1.7\S\1.7 Normal 1.00-4.8 [facility] DO Work Phone: 92.3\S\92.3 Normal 83.5-101 [facility] 600 DO Work Phone: 45.8\S\45.8 Normal 38.8-50.0 [facility] DO Work Phone: 14.9\S\14.9 Normal 13.0-17.0 [facility] DO Work Phone: 4.96\S\4.96 Normal 3.90-5.60 [facility] DO Work Phone: Platelet mean volume Auto (B ld) [Entitic vol]Ordered By: Angel Betancourt on 10-29-2021 Platelet mean volume (Bld) [Entitic vol] 9.0 fL 6.6-10.1 [facility] Platelets Auto (Bld) [#/Vol] Ordered By: Angel Betancourt on 10-29-2021 Platelets (Bld) [#/Vol] 196 10*3/uL 150-450 [facility] RBC Auto (Bld) [#/Vol]Ordere d By: Angel Betancourt on 10-29-2021 RBC (Bld) [#/Vol] 4.96 10*6/uL 3.90-5.60 [facility] Serum or plasma calcium ozzie urement (mass/volume)Ordered By: Angel Betancourt on 10-29-2021 Calcium [Mass/Vol] 9.6 mg/dL 8.2-10.2 [facility] Serum or plasma chloride tatyana surement (moles/volume)Ordered By: Angel Betancourt on 10-29-2021 Chloride [Moles/Vol] 105 mmol/L 95-114 [facility] Serum or plasma glucose ozzie urement (mass/volume)Ordered By: Angel Betancourt on 10-29-2021 Glucose [Mass/Vol] 117 mg/dL 70-100 [facility] Comment on above: ADA recommended refe [...] on 10-29-2021 Potassium [Moles/Vol] 3.5 mmol/L 3.5-5.1 [facility] Serum or plasma sodium measu rement (moles/volume)Ordered By: Angel Betancourt on 10-29-2021 Sodium [Moles/Vol] 139 mmol/L 136-146 [facility] Serum or plasma total carbon dioxide measurement (moles/volume)Ordered By: Angel Betancourt on 10-29-2021 CO2 [Moles/Vol] 23.9 mmol/L 22.0-30.0 [facility] Serum or plasma urea nitroge n measurement (mass/volume)Ordered By: Angel Betancourt on 10-29-2021 Urea nitrogen [Mass/Vol] 14 mg/dL 9-23 [facility] Office Visit (Cardiology)on 10-24-2021 Follow-up visit [...] SWAB TEST? : Unknown Urinalysis; Status:Active; Requested for:[id number]; Xray Chest 2 View PA + Lateral; Status:Hold For - Scheduling; Requested for:24Oct2021; Radiologist to Determine Optimal Study : Y What are the patient's signs and symptoms? : Pacemaker generator change S/P placement of cardiac pacemaker, SSS (sick sinus syndrome) Pacemaker Clinic Referral and Follow-up Evaluation and Treatment Evaluate AND Treat Status: Hold For - Scheduling Requested for: [id number] Pacemaker Generator Change; Status:Active; Requested for:24Oct2021; SocHx: Former smoker Tobacco Use Screening; Status:Complete; Done: 24Oct2021 Patient Instructions By signing my name below, I, Marivel Monae LPN, Scribe, attest that this documentation has been prepared under the direction and in the presence of Dr. Angel Betancourt MD. All medical record entries made by the Lucita were at my direction and personally dictated [...] for a cardiovascular evaluation of gen change 2015. History of Present Illness Patient returns after [...] MG O (more content not included)... Normal [employer] Tobacco Screening.on 022 Adult depression screening assessment No [facility] [employer] 250 DO Work Phone: Fall risk assessment a) No falls within the last year [facility] [employer] 250 DO Work Phone: Tobacco use status CPHS b) No [facility] 250 DO Work Phone: Vital Signs Date Time Vital Sign Value Performing Clinician Facility 06-08-2024 11:28-0500 Body height 180.34 cm [facility] 06-08-2024 11:28-0500 Body mass index (BMI) [Ratio] 25.7 kg/m2 [facility] 06-08-2024 11:28-0500 Body weight 83.91 kg [facility] 06-08-2024 11:28-0500 Diastolic blood pressure 72 mm[Hg] [facility] 06-08-2024 11:28-0500 Heart rate 72 /min [facility] 06-08-2024 11:28-0500 Respiratory rate 20 /min [facility] 06-08-2024 11:28-0500 Systolic blood pressure 142 mm[Hg] [facility] 03-16-2024 10:31-0400 Body height 180.3 cm Danilo Paniagua MD Work Phone: [facility] 03-16-2024 10:31-0400 Body mass index (BMI) [Ratio] 25.8 kg/m2 Danilo Paniagua MD Work Phone: [facility] 03-16-2024 10:31-0400 Body weight 83.92 kg Danilo Paniagua MD Work Phone: [facility] 03-16-2024 10:31-0400 Diastolic blood pressure 62 mm[Hg] Danilo Paniagua MD Work Phone: [facility] 03-16-2024 10:31-0400 Heart rate 68 /min Danilo Paniagua MD Work Phone: [facility] 03-16-2024 10:31-0400 Systolic blood pressure 98 mm[Hg] Danilo Paniagua MD Work Phone: [facility] 12-06-2023 11:35-0400 Body height 180.34 cm [facility] 12-06-2023 11:35-0400 Body mass index (BMI) [Ratio] 26.6 kg/m2 [facility] 12-06-2023 11:35-0400 Body weight 86.74 kg [facility] 12-06-2023 11:35-0400 Diastolic blood pressure 65 mm[Hg] [facility] 12-06-2023 11:35-0400 Heart rate 72 /min [facility] 12-06-2023 11:35-0400 Respiratory rate 16 /min [facility] 12-06-2023 11:35-0400 Systolic blood pressure 98 mm[Hg] [facility] 06-14-2023 08:26-0500 Body height 180.3 cm Angel Betancourt MD Work Phone: [facility] 06-14-2023 08:26-0500 Body mass index (BMI) [Ratio] 27.89 kg/m2 Angel Betancourt MD Work Phone: [facility] 06-14-2023 08:26-0500 Body weight 90.72 kg Angel Betancourt MD Work Phone: [facility] 06-14-2023 08:26-0500 Diastolic blood pressure 64 mm[Hg] Angel Betancourt MD Work Phone: [facility] 06-14-2023 08:26-0500 Heart rate 86 /min Angel Betancourt MD Work Phone: [facility] 06-14-2023 08:26-0500 Systolic blood pressure 98 mm[Hg] Angel Betancourt MD Work Phone: [facility] 04-05-2023 11:30-0400 Body height 180.34 cm Ferny Ball Other [employer] Other 04-05-2023 11:30-0400 Body mass index (BMI) [Ratio] 26.66 kg/m2 Ferny Ball Other [employer] Other 04-05-2023 11:30-0400 Body weight 86.73 kg Ferny Ball Other [employer] Other 04-05-2023 11:30-0400 Diastolic blood pressure 59 mm[Hg] Ferny Ball Other [employer] Other 04-05-2023 11:30-0400 Respiratory rate 12 /min Ferny Ball Other [employer] Other 04-05-2023 11:30-0400 Systolic blood pressure 92 mm[Hg] Ferny Ball Other [employer] Other 01-13-2023 13:14-0400 Blood Pressure Location Silas CATAL[facility] [place] 01-13-2023 13:14-0400 Diastolic blood pressure 62 mm[Hg] Silas CATALAN [facility] [place] 01-13-2023 13:14-0400 Heart rate 76 /min Silas CATALAN [facility] [place] 01-13-2023 13:14-0400 Respiratory rate 16 /min Silas CATALAN [facility] [place] 01-13-2023 13:14-0400 Systolic blood pressure 110 mm[Hg] Silas CATALAN [facility] [place] 09-18-2022 14:52-0500 Body height 180.34 cm Caesar Glover Work Phone: [facility] 250 DO Work Phone: 09-18-2022 14:52-0500 Body mass index (BMI) [Ratio] 27.48 kg/m2 Caesar Glover Work Phone: [facility] 250 DO Work Phone: 09-18-2022 14:52-0500 Body surface area Derived from formula 2.1 m2 Caesar Glover Work Phone: [facility] 250 DO Work Phone: 09-18-2022 14:52-0500 Body weight 89.36 kg Caesar Glover Work Phone: [facility] 250 DO Work Phone: 09-18-2022 14:52-0500 Diastolic blood pressure 78 mm[Hg] Caesar Glover Work Phone: [facility] 250 DO Work Phone: 09-18-2022 14:52-0500 Heart rate 66 /min Caesar Glover Work Phone: [facility] 250 DO Work Phone: 09-18-2022 14:52-0500 Systolic blood pressure 122 mm[Hg] Caesar Glover Work Phone: [facility] 250 DO Work Phone: 08-10-2022 11:41-0500 65 1 Caesar Glover Work Phone: [facility] Work Phone: Comment on above: [id number] 07-02-2022 14:41-0500 56 1 Caesar Glover Work Phone: [facility] 250 DO Work Phone: Comment on above: [id number] 06-18-2022 12:59-0500 Body height 180.34 cm Caesar Glover Work Phone: [facility] 250 DO Work Phone: 06-18-2022 12:59-0500 Body mass index (BMI) [Ratio] 27.2 kg/m2 Caesar Glover Work Phone: [facility] 250 DO Work Phone: 06-18-2022 12:59-0500 Body surface area Derived from formula 2.09 m2 Caesar Glover Work Phone: [facility] 250 DO Work Phone: 06-18-2022 12:59-0500 Body weight 88.45 kg Caesar Glover Work Phone: [facility] 250 DO Work Phone: 06-18-2022 12:59-0500 Diastolic blood pressure 76 mm[Hg] Caesar Glover Work Phone: [facility] 250 DO Work Phone: 06-18-2022 12:59-0500 Heart rate 68 /min Caesar Glover Work Phone: [facility] 250 DO Work Phone: 06-18-2022 12:59-0500 Systolic blood pressure 134 mm[Hg] Caesar Glover Work Phone: [facility] 250 DO Work Phone: 04-06-2022 08:55-0400 Body height 180.34 cm Caesar Glover Work Phone: [facility] 250 DO Work Phone: 04-06-2022 08:55-0400 Body mass index (BMI) [Ratio] 28.03 kg/m2 Caesar Glover Work Phone: [facility] 250 DO Work Phone: 04-06-2022 08:55-0400 Body surface area Derived from formula 2.11 m2 Caesar Glover Work Phone: [facility] 250 DO Work Phone: 04-06-2022 08:55-0400 Body weight 91.17 kg Caesar Glover Work Phone: [facility] 250 DO Work Phone: 04-06-2022 08:55-0400 Diastolic blood pressure 92 mm[Hg] Caesar Glover Work Phone: [facility] 250 DO Work Phone: 04-06-2022 08:55-0400 Heart rate 80 /min Caesar Glover Work Phone: [facility] 250 DO Work Phone: 04-06-2022 08:55-0400 Systolic blood pressure 170 mm[Hg] Caesar Glover Work Phone: [facility] 250 DO Work Phone: 03-04-2022 12:00-0400 52 1 Caesar Glover Work Phone: [facility] 250A [place] Work Phone: Comment on above: [id number] 03-03-2022 09:34-0400 Body height 180.34 cm Caesar Glover Work Phone: [facility] 250 DO Work Phone: 03-03-2022 09:34-0400 Body mass index (BMI) [Ratio] 28.17 kg/m2 Caesar Glover Work Phone: [facility] 250 DO Work Phone: 03-03-2022 09:34-0400 Body surface area Derived from formula 2.12 m2 Caesar Glover Work Phone: [facility] 250 DO Work Phone: 03-03-2022 09:34-0400 Body weight 91.63 kg Caesar Glover Work Phone: [facility] 250 DO Work Phone: 03-03-2022 09:34-0400 Diastolic blood pressure 88 mm[Hg] Caesar Glover Work Phone: [facility] 250 DO Work Phone: 03-03-2022 09:34-0400 Heart rate 60 /min Caesar Glover Work Phone: [facility] 250 DO Work Phone: 03-03-2022 09:34-0400 Systolic blood pressure 136 mm[Hg] Caesar Glover Work Phone: [facility] 250 DO Work Phone: 11-13-2021 16:16-0400 Body height 180.34 cm Caesar Glover Work Phone: [facility] 250 DO Work Phone: 11-13-2021 16:16-0400 Body mass index (BMI) [Ratio] 27.48 kg/m2 Caesar Glover Work Phone: [facility] 250 DO Work Phone: 11-13-2021 16:16-0400 Body surface area Derived from formula 2.1 m2 Caesar Glover Work Phone: [facility] 250 DO Work Phone: 11-13-2021 16:16-0400 Body temperature 98.1 [degF] Caesar Glover Work Phone: [facility] 250 DO Work Phone: 11-13-2021 16:16-0400 Body weight 89.36 kg Caesar Glover Work Phone: [facility] 250 DO Work Phone: 11-13-2021 16:16-0400 Diastolic blood pressure 72 mm[Hg] Caesar Glover Work Phone: [facility] 250 DO Work Phone: 11-13-2021 16:16-0400 Heart rate 72 /min Caesar Glover Work Phone: [facility] 250 DO Work Phone: 11-13-2021 16:16-0400 Systolic blood pressure 136 mm[Hg] Caesar Glover Work Phone: [facility] 250 DO Work Phone: 11-06-2021 11:23-0400 Diastolic blood pressure 51 mm[Hg] MD Caesar Glover Work Phone: [facility] 11-06-2021 11:23-0400 Heart rate 60 /min MD Caesar Glover Work Phone: [facility] 11-06-2021 11:23-0400 Respiratory rate 20 /min MD Caesar Glover Work Phone: [facility] 11-06-2021 11:23-0400 SaO2% (BldA) [Mass fraction] 93 % MD Caesar Glover Work Phone: [facility] 11-06-2021 11:23-0400 Systolic blood pressure 104 mm[Hg] MD Caesar Glover Work Phone: [facility] 11-06-2021 09:38-0400 Inhaled oxygen flow rate 8 L/min MD Caesar Glover Work Phone: [facility] 11-06-2021 08:26-0400 Body height 176.53 cm MD Caesar Glover Work Phone: [facility] 11-06-2021 08:26-0400 Body mass index (BMI) [Ratio] 28.5 kg/m2 MD Caesar Glover Work Phone: [facility] 11-06-2021 08:26-0400 Body weight 89 kg MD Caesar Glover Work Phone: [facility] 11-06-2021 07:29-0400 Body temperature 98.1 [degF] MD Caesar Glover Work Phone: [facility] 10-24-2021 13:51-0400 Diastolic blood pressure 82 mm[Hg] Caesar Glover Work Phone: [facility] 250 DO Work Phone: 10-24-2021 13:51-0400 Systolic blood pressure 156 mm[Hg] Caesar Glover Work Phone: [facility] 250 DO Work Phone: 10-24-2021 13:47-0400 Body height 180.34 cm Caesar Glover Work Phone: [facility] 250 DO Work Phone: 10-24-2021 13:47-0400 Body mass index (BMI) [Ratio] 27.75 kg/m2 Caesar Glover Work Phone: [facility] 250 DO Work Phone: 10-24-2021 13:47-0400 Body surface area Derived from formula 2.1 m2 Caesar Glover Work Phone: [facility] 250 DO Work Phone: 10-24-2021 13:47-0400 Body weight 90.27 kg Caesar Glover Work Phone: [facility] 250 DO Work Phone: 10-24-2021 13:47-0400 Diastolic blood pressure 88 mm[Hg] Caesar Brit Glover Work Phone: [facility] 250 DO Work Phone: 10-24-2021 13:47-0400 Heart rate 68 /min Caesar Glover Work Phone: [facility] 250 DO Work Phone: 10-24-2021 13:47-0400 Systolic blood pressure 162 mm[Hg] Caesar Glover Work Phone: [facility] 250 DO Work Phone: Encounters Encounter Date Encounter Type Care Provider Facility Start: 06-08-2024 End: 06-08-2024 [facility] Work Phone: Start: 06-08-2024 End: 06-08-2024 Patient encounter procedure [facility] Physician [facility] Work Phone: Start: 06-06-2024 Non-patient / Non-visit [facility] Physician [facility] Work Phone: Start: 05-31-2024 Non-patient / Non-visit [facility] Physician [facility] Work Phone: Start: 03-16-2024 End: 03-16-2024 Office outpatient visit 25 minutes Danilo Paniagua MD Work Phone: [facility] Comment on above: Chronic a-fib (Multi ); Coronary artery disease involving [place] coronary artery of [place] heart without angina pectoris; CHB (complete heart block) (Multi); SSS (sick sinus syndrome) (Multi); S/P placement of cardiac pacemaker; Aortic valve stenosis, etiology of cardiac valve disease unspecified; Mixed hyperlipidemia; Essential hypertension; intermediate current use of anticoagulant therapy; Overweight (BMI 25.0-29.9); Former smoker Start: 03-08-2024 End: 03-08-2024 Patient encounter procedure DO Ferny White Work Phone: [facility] Start: 03-08-2024 End: 03-08-2024 ambulatory DO Ferny White Work Phone: [facility] Work Phone: Start: 03-06-2024 Non-patient / Non-visit DO Jose White Work Phone: [facility] Work Phone: Start: 12-06-2023 End: 12-06-2023 ambulatory [facility] Work Phone: Start: 12-06-2023 End: 12-06-2023 Patient encounter procedure [facility] Physician [facility] Work Phone: Start: 06-14-2023 End: 06-14-2023 ambulatory [facility]GEL Bass [facility] Start: 06-14-2023 End: 06-14-2023 Office outpatient visit 25 minutes Angel Betancourt MD Work Phone: [facility] Comment on above: Coronary artery dise ase involving [place] coronary artery of [place] heart without angina pectoris (Primary Dx); CHB (complete heart block) (CMS/HCC); S/P placement of cardiac pacemaker; Mixed hyperlipidemia; Essential hypertension; Nonrheumatic aortic valve stenosis; Paroxysmal atrial fibrillation (CMS/HCC); Overweight (BMI 25.0-29.9) Start: 04-05-2023 End: 04-05-2023 ambulatory Ferny White Other [facility] [employer] Other Start: 04-05-2023 Office outpatient vi sit 25 minutes Ferny White [facility] Start: 03-23-2023 End: 03-23-2023 ambulatory Caesar Glover Other [employer] Other Start: 03-23-2023 Telephone encounter Caesar Glover [facility] Start: 03-08-[address] Caesar Glover Facility:[id number] Start: 03-08-2023 End: 03-08-2023 ambulatory MD Caesar Glover Work Phone: [facility] Work Phone: Start: 03-08-2023 End: 03-08-2023 Patient encounter procedure MD Caesar Glover Work Phone: [facility] Start: 03-03-2023 End: 03-04-2023 ambulatory Silas R NILL Facility:[facility] [place] Start: 03-01-2023 End: 03-01-2023 ambulatory Caesar Glover Other [employer] Other Start: 03-01-2023 Telephone encounter Caesar Glover [facility] Start: 02-17-2023 End: 02-17-2023 ambulatory Ferny White Other [employer] Other Start: 02-17-2023 Telephone encounter Ferny White [facility] Start: 02-11-2023 End: 02-11-2023 ambulatory Ferny White Other [employer] Other Start: 02-11-2023 Telephone encounter Ferny White [facility] Start: 02-10-2023 End: 02-11-2023 ambulatory Slias R NILL Facility:[id number] Start: 01-22-2023 Image Encounter Caesar Glover Work Phone: [facility] 250 DO Work Phone: Start: 01-13-2023 End: 01-14-2023 ambulatory Silas R NILL Facility:[facility] [place] Start: 01-13-2023 End: 01-13-2023 Patient encounter procedure Silas R NILL [facility] N[facility] [place] Start: 01-07-2023 ambulatory Silas NILL Facility:[facility] Start: 12-28-2022 ambulatory Silas NILL Facility:[facility] Start: 12-24-2022 End: 12-24-2022 ambulatory Ferny White Other [facility] [employer] Other Start: 12-24-2022 Telephone encounter Ferny White [facility] Start: 12-04-[address] Caesar Glover Facility:[id number] Start: 10-26-2022 Rx Renewal Caesar Glover Work Phone: [facility] 250 DO Work Phone: Start: 09-18-2022 FUV, Provider: Angel Betancourt, Status: Pen, Time: 2:50 PM Caesar Glover Work Phone: [facility] 600 DO Work Phone: Start: 09-18-2022 Office outpatient vi sit 25 minutes Caesar Glover Work Phone: [facility] 250 DO Work Phone: Start: 09-18-[address] Angel Betancourt II Facility: Start: 09-16-2022 Telephone encounter Caesar owens Work Phone: [facility] 600 DO Work Phone: Start: 09-03-2022 End: 09-03-2022 ambulatory MD Caesar Glover Work Phone: [facility] Work Phone: Start: 09-03-2022 End: 09-03-2022 Patient encounter procedure MD Caesar Glover Work Phone: [facility] Start: 09-03-[address] Caesar Glover Facility:[id number] Start: 08-14-2022 ambulatory STALIN ONOFRE Facility: 1 Start: 08-13-[address] Caesar Glover Facility:[facility] Start: 08-13-[address] Caesar Glover Facility:[facility] Start: 08-10-2022 End: 08-11-[address] DOCTOR DOUGHERTY Facility: Start: 07-30-2022 AUDIT Caesar Glover Work Phone: [facility] Work Phone: Start: 07-30-2022 End: 07-31-[address] CAESAR GLOVER Facility:H1 Start: 07-08-2022 Patient encounter procedure Caesar Glover Work Phone: [facility] 250 DO Work Phone: Start: 07-02-2022 End: 07-03-[address] ANGEL BETANCOURT Facility:H1 Start: 06-18-2022 Office outpatient vi sit 25 minutes Caesar Glover Work Phone: [facility] 250 DO Work Phone: Start: 06-18-[address] Angel Betancourt II Facility: Start: 06-03-[address] Caesar Glover Facility:[id number] Start: 06-03-2022 End: 06-03-2022 ambulatory MD Caesar Glover Work Phone: [facility] Work Phone: Start: 06-03-2022 End: 06-03-2022 Patient encounter procedure MD Caesar Glover Work Phone: [facility] Start: 05-14-2022 Chart Update Caesar Glover Work Phone: [facility] DO Work Phone: Start: 05-14-2022 Adult health examination Basil min Ball Other [facility] [employer] Other Start: 05-07-[address] ANGEL MORENO II Facility:[id number] Start: 04-06-2022 Office outpatient vi sit 25 minutes Caesar Glover Work Phone: [facility] DO Work Phone: Start: 04-06-[address] Angel Betancourt II Facility: Start: 03-04-2022 Patient encounter procedure Caesar Glover Work Phone: [facility] [place] Work Phone: Start: 03-04-2022 STRESS NUC, Provider : BERTRAND ZURITARoxy NUCLEAR 01,[id number], Status: Pen, Time: 12:00 PM Caesar Glover Work Phone: [facility] DO Work Phone: Start: 03-04-[address] ANGEL MORENO II Facility:[id number] Start: 03-03-2022 Office outpatient vi sit 25 minutes Caesar Glover Work Phone: [facility] DO Work Phone: Start: 02-26-2022 End: 02-26-2022 Patient encounter procedure MD Caesar Glover Work Phone: [facility] Start: 02-02-2022 End: 02-03-2022 [facility] Start: 12-23-2021 End: 12-24-2021 ambulatory [facility] Facility:H1 Start: 12-22-2021 End: 12-22-2021 Patient encounter procedure MD Caesar Glover Work Phone: [facility] Start: 11-13-2021 Postop follow up vis it related to original px Caesar Glover Work Phone: [facility] DO Work Phone: Start: 11-06-2021 SURGNONUH, Provider: Angel Betancourt, Status: Pen, Time: 9:00 AM Caesar Glover Work Phone: [facility] DO Work Phone: Start: 11-06-2021 End: 11-06-2021 Admission to same day surgery center MD Caesar Glover Work Phone: [facility] [place] Start: 11-05-2021 Chart Update Caesar Glover Work Phone: [facility] DO Work Phone: Start: 11-04-2021 End: 11-04-2021 Patient encounter procedure MD Caesar Glover Work Phone: [facility] Start: 10-30-2021 Chart Update Caesar Glover Work Phone: [facility] DO Work Phone: Start: 10-29-2021 End: 10-29-2021 Patient encounter procedure MD Caesar Glover Work Phone: [facility] Start: 10-24-2021 Office outpatient ne w 60 minutes Caesar Glover Work Phone: [facility] DO Work Phone: Start: 09-19-2021 End: 09-19-2021 Patient encounter procedure MD Caesar Glover Work Phone: [facility] Start: 06-23-2021 End: 06-23-2021 Patient encounter procedure MD Caesar Glover Work Phone: [facility] Procedures Date Procedure Procedure Detail Performing Clinician Start: 02-10-2023 Colonoscopy Angel Moreno MD Work Phone: Start: 11-06-2021 Implantation of card iac pacemaker MD Caesar Glover Work Phone: Start: 11-06-2021 End: 11-06-2021 Plain chest X-ray MD Caesar Glover Work Phone: Start: 11-08-2018 Screening for malign ant neoplasm of prostate Ferny White Other Angioplasty of blood vessel Silas CATALAN Colonoscopy Silas CATALAN Depression screening Carlos White Other Implantation of card iac pacemaker Silas CATALAN Insertion of pacemak er pulse generator Caesar Perea Glover Work Phone: Percutaneous translu mahnaz coronary angioplasty Caesar Perea Belen Work Phone: Placement of stent i n cardiac conduit Silas CATALAN Screening for malign ant neoplasm of prostate Ferny White Other Total colonoscopy Caesar owens Work Phone: Plan of Treatment Date Care Activity Detail Author Start: 07-01-2033 DTaP/Tdap/Td Vaccine s (3 - Td or Tdap) DTaP/Tdap/Td Vaccines (3 - Td or Tdap) [facility] Start: 02-10-2033 Screening for malign ant neoplasm of colon [facility] Start: 10-18-2024 End: 10-18-2024 Patient encounter procedure 10/18/2024 10:30 AM EDT Office Visit [facility] [address] [place] [address] Danilo Paniagua MD [address] [place] [address] [facility] Start: 09-28-2024 End: 09-28-2024 Patient encounter procedure 09/28/2024 10:45 AM EDT Appointment [facility] [address] [facility] [address] [place] [address] [facility] Start: 09-15-2024 End: 03-16-2026 Heart Transthoracic Transthoracic Echo Complete Echocardiography Routine Aortic valve stenosis, etiology of cardiac valve disease unspecified Expected: 09/15/2024 (Approximate), Expires: 03/16/[address] [facility] Service Area Work Phone: Comment on above: Expected: 09/15/2024 (Approximate), Expires: 03/16/2026 Start: 03-19-2024 Influenza vaccination Influenza Vacc ine (#1) [facility] Start: 03-07-2024 End: 03-07-2024 Patient encounter procedure 03/07/2024 9:40 AM EDT Office Visit [facility] [address] [place] [address] Angel Betancourt MD [address] [place] [address] [facility] Start: 08-31-2023 COVID-19 Vaccine () COVID-19 Vaccine ( season) [facility] Start: 06-25-2023 COVID-19 Vaccine (5 - Pfizer series) COVID-19 Vaccine (5 - Pfizer series) [facility] Start: 05-28-2023 FUV, Provider: Angel Betancourt, Status: Pen, Time: 2:50 PM FUV, Provider: Angel Beatncourt, Status: Pen, Time: 2:50 PM [facility] DO Work Phone: Start: 01-08-2023 FUV, Provider: Angel Betancourt, Status: Pen, Time: 2:30 PM FUV, Provider: Angel Betancourt, Status: Pen, Time: 2:30 PM -[facility] DO Work Phone: Start: 08-14-2022 ECHO, Provider: BERTRAND HHVI ULTRASOUND 01,[id number], Status: Pen, Time: 10:45 AM ECHO, Provider: BERTRAND HHVI ULTRASOUND 01,[id number], Status: Pen, Time: 10:45 AM [facility] Work Phone: Start: 08-13-2022 PST, Provider: KATIE BENTLEY 6TH FLR PFT WALKWAY,PULM, Status: Pen, Time: 2:30 PM PST, Provider: KATIE BENTLEY 6TH FLR PFT WALKWAY,PULM, Status: Pen, Time: 2:30 PM MG-Pulm [facility] Work Phone: Start: 08-13-2022 PFT, Provider: KATIE [...] Angel Betancourt, Status: Pen, Time: 1:00 PM [facility] Work Phone: Start: 05-07-2022 CAROTID, Provider: BERTRAND HHVI ULTRASOUND 01,[id number], Status: Pen, Time: 10:45 AM CAROTID, Provider: BERTRAND HHVI ULTRASOUND 01,[id number], Status: Pen, Time: 10:45 AM -[facility] DO Work Phone: Start: 04-06-2022 FUV, Provider: Angel Betancourt, Status: Pen, Time: 8:50 AM FUV, Provider: Angel Betancourt, Status: Pen, Time: 8:50 AM [facility] DO Work Phone: Start: 03-03-2022 FUV, Provider: Angel Betancourt, Status: Pen, Time: 9:20 AM FUV, Provider: Angel Betancourt, Status: Pen, Time: 9:20 AM -[facility] DO Work Phone: Start: 11-13-2021 KAROLYN, Provider : ELLIE TINEO CENTRIFUGAL EXTRACTOR OPERATOR 1,[id number], Status: Pen, Time: 9:30 AM KAROLYN, Provider: ELLIE TINEO CENTRIFUGAL EXTRACTOR OPERATOR 1,[id number], Status: Pen, Time: 9:30 AM [facility] DO Work Phone: Start: 11-07-2021 Plain chest X-ray XR chest 2V* [facility] Start: [facility]: Angel Betancourt, Status: Pen, Time: 9:00 AM [facility], Provider: Angel Betancourt, Status: Pen, Time: 9:00 AM [facility] Work Phone: Start: 2012 Abdominal aortic aneurysm screening Abdominal Aortic Aneurysm (AAA) Screening [facility] Start: 1997 Zoster Vaccines (1 o f 2) Zoster Vaccines (1 of 2) [facility] Start: 1969 DTaP/Tdap/Td Vaccine s (1 - Tdap) DTaP/Tdap/Td Vaccines (1 - Tdap) [facility] Start: 1965 Diabetes mellitus screening Diabetes Screening [facility] Start: 1965 Hepatitis C screening Hepatitis C Sc reening [facility] Start: 1947 Lipid panel Lipid Panel [facility] Start: 1945 Medicare Annual Wellness Visit Medicare Annual Wellness Visit (AWV) [facility] Start: 1945 Screening for malign ant neoplasm of colon [facility] Comprehensive metabo lic 2000 panel - Serum or Plasma [facility] Immunizations Immunization Date Immunization Notes Care Provider Fa nate 04-30-2023 influenza virus vaccine, unspecified formulation Angel Betancourt MD Work Phone: [facility] Work Phone: 05-18-2022 Pfizer COVID-19 Vac Bivalent 30 MCG/0.3ML Intramuscular Suspension Caesar Glover Work Phone: [facility] [place] Comment on above: Result Comment: 2022: [id number] 05-18-2022 Pfizer Purple Cap SARS-CoV-2 Angel Betancourt MD Work Phone: [facility] Work Phone: 04-21-2022 influenza virus vaccine, split virus (incl. purified surface antigen) Ferny White Other [facility] [employer] Other 04-21-2022 influenza virus vaccine, unspecified formulation [facility] 04-18-2022 influenza virus vaccine, unspecified formulation [facility] 04-18-2022 influenza, high dose seasonal, preservative-free Caesar E Glover Work Phone: [place] [address] DO Work Phone: Comment on above: Series: 05-21-2021 Pfizer-BioNTech COVID-19 Vacc 30 MCG/0.3ML Intramuscular Suspension Caesar E Glover Work Phone: [facility] Comment on above: Result Comment: 2022: [id number] 05-05-2021 influenza virus vaccine, split virus (incl. purified surface antigen) Ferny White Other [facility] [employer] Other 05-05-2021 influenza virus vaccine, unspecified formulation [facility] 05-05-2021 Seasonal trivalent influenza vaccine, adjuvanted, preservative free Caesar E Glover Work Phone: [place] [address] DO Work Phone: 11-13-2020 Pfizer-BioNTech COVID-19 Vacc 30 MCG/0.3ML Intramuscular Suspension Caesar E Glover Work Phone: [facility] 10-23-2020 Pfizer-BioNTech COVID-19 Vacc 30 MCG/0.3ML Intramuscular Suspension Caesar E Glover Work Phone: [facility] 04-01-2020 influenza virus vaccine, split virus (incl. purified surface antigen) Ferny White Other [facility] [employer] Other 04-01-2020 influenza virus vaccine, unspecified formulation [facility] 04-01-2020 influenza, injectabl e, quadrivalent, contains preservative Caesar E Glover Work Phone: [facility] [place] DO Work Phone: 05-05-2019 influenza virus vaccine, split virus (incl. purified surface antigen) Ferny White Other [facility] [employer] Other 05-05-2019 influenza virus vaccine, unspecified formulation [facility] 05-05-2019 influenza, injectabl e, quadrivalent, contains preservative Caesar Glover Work Phone: [facility] [place] DO Work Phone: 05-02-2018 influenza virus vaccine, split virus (incl. purified surface antigen) Ferny White Other [facility] [employer] Other 05-02-2018 influenza virus vaccine, unspecified formulation [facility] 05-02-2018 Seasonal trivalent influenza vaccine, adjuvanted, preservative free Caesar Glover Work Phone: [facility] [place] DO Work Phone: 08-03-2017 diphtheria, tetanus toxoids and acellular pertussis vaccine, unspecified formulation Ferny White Other [facility] 08-03-2017 pneumococcal conjuga te vaccine, 13 valent Caesar Glover Work Phone: [facility] 05-20-2017 influenza virus vaccine, split virus (incl. purified surface antigen) Ferny White Other [facility] [employer] Other 05-20-2017 influenza virus vaccine, unspecified formulation [facility] 05-20-2017 Seasonal trivalent influenza vaccine, adjuvanted, preservative free Caesar E Glover Work Phone: [facility] [place] DO Work Phone: 05-19-2016 influenza virus vaccine, unspecified formulation Caesar E Glover Work Phone: [facility] [place] DO Work Phone: 05-19-2015 influenza virus vaccine, unspecified formulation Caesar Glover Work Phone: [facility] DO Work Phone: 08-13-2014 pneumococcal polysaccharide vaccine, 23 valent Ferny White Other [facility] 04-23-2014 influenza virus vaccine, unspecified formulation Caesar Glover Work Phone: [facility] DO Work Phone: 04-18-2014 pneumococcal polysaccharide vaccine, 23 valent Caesar Glover Work Phone: [facility] DO Work Phone: 05-22-2013 influenza virus vaccine, unspecified formulation Caesar Glover Work Phone: [facility] DO Work Phone: influenza virus vaccine, unspecified formulation Caesar Glover Work Phone: [facility] [address] DO Work Phone: Comment on above: Apr 20122010 Payers Date Payer Category Payer Medicare [facility] E MEDICARE [employer] MEDICARE [id number] 2023-Present [address] [place] [address] [id number] 2023 Private Health Insurance [id number] 2016 Medicare [id number] 1959 Medicare [id number] 1959 Private Health Insurance [id number] 1959 Self-pay [id number] 1947 Unknown [id number] 2.16.840.1.753096.3.579.2. 1068 1947 Unknown [id number] 2.16.840.1.760470.3.579.2. 1068 1947 Unknown [id number] 2.16.840.1.464066.3.579.2. 593 1947 Unknown [id number] 2.16.840.1.011167.3.579.2. 593 1947 Unknown [id number] 2.16.840.1.107678.3.579.2. 593 1947 Unknown [id number] 2.16.840.1.807090.3.579.2. 593 1947 Unknown [id number] 2.16.840.1.538117.3.579.2. 593 1947 Unknown [id number] 2.16.840.1.995640.3.579.2. 727 1947 Unknown [id number] 2.16.840.1.154916.3.579.2. 727 1947 Unknown [id number] 2.16.840.1.102619.3.579.2. 727 1947 Unknown [id number] 2.16.840.1.567228.3.579.2. 727 1947 Unknown [id number] 2.16.840.1.732603.3.579.2. 727 1947 Unknown [id number] 2.16.840.1.585863.3.579.2. 356 1947 Unknown [id number] 2.16.840.1.475808.3.579.2. 356 1947 Unknown [id number] 2.16.840.1.038649.3.579.2. 356 1947 Unknown [id number] 2.16.840.1.470452.3.579.2. 356 1947 Unknown [id number] 2.16.840.1.592111.3.579.2. 356 1947 Unknown [id number] 2.16.840.1.907287.3.579.2. 356 1947 Unknown [id number] 2.16.840.1.252252.3.579.2. 356 1947 Unknown [id number] 2.16.840.1.060341.3.579.2. 356 1947 Unknown [id number] 2.16.840.1.425023.3.579.2. 356 1947 Unknown [id number] 2.16.840.1.454336.3.579.2. 1244 Unknown [id number] Unknown Unknown [id number] 2.16.840.1.163658.3.579.2. 593 Unknown [id number] 2.16.840.1.944916.3.579.2. 531 Social History Date Type Detail Facility Tobacco smoking stat [facility] Unknown if ever smoked [facility] Work Phone: Start: 1945 Sex Assigned At Male F [facility] Start: 06-14-2023 Daily caffeine consumption, 2-3 servings a day Daily caffeine consumption, 2-3 servings a day -[facility] [address] DO Work Phone: Comment on above: Quit 2019 <1 ppd; 2 cups coffee in mor christal; Start: 10-29-2021 End: 06-09-2023 Tobacco smoking status NHIS Ex-smoker (finding) [facility] Start: 06-14-2023 Sex Assigned At F [facility] Tobacco smoking status Never [facility] Jenna History of tobacco use Current smoker [facility] Work Phone: History of tobacco use Cigarette Smoker [facility] Work Phone: Start: 06-14-2023 End: 03-16-2024 Alcohol intake Lifetime non-drinker (finding) [facility] Work Phone: Start: 1945 Sex Assigned At Not on file [facility] Work Phone: Start: 06-04-2023 End: 03-16-2024 Exposure to SARS-CoV-2 (event) Not sure [facility] Start: 06-08-2024 Sex Male (finding) [facility] Medical Equipment Procedure Code Equipment Code Equipment Origin al Text Equipment Identifier Dates Insertion, pacemaker Dual-chamber implantable pacemaker, rate-responsive [id number] FDA Start: 11-06-2021 Goals Date Patient Goal Desired Activity /State Functional Status Date Assessment Result Facility 01-13-2023 Functional Status N/A [facility] Clinical Notes 11-04-2021 to 03-16-2024 Danilo Paniagua MD - 03/16/2024 10:30 AM EDTPatient InstructionsAttaNeil Betancourt MD - 06/14/2023 8:30 AM ESTPatient Instructions Note Date & Type Note Facility 03-16-2024 History of Present illness Narrative Subjective Alan Herrera is a 78 y.o. male Chief Complaint Follow-up HPI 78-year-old white male who I am seeing for the first time, he followed previously with Dr. Betancourt. His records were reviewed and discussed with him and his . He has sick sinus syndrome and has a pacemaker in place with a battery change at least once. He has permanent atrial fibrillation and has been on Eliquis. Has no previous cardioversions. Years ago he had coronary angioplasty with no recurrent disease and no investigation for ischemic heart disease since. He has COPD and presently on home oxygen. His last echocardiogram July 2022 at [facility] revealed evidence of mild aortic stenosis and normal ejection fraction. He has hypertension medical therapy and was found to be hypotensive in the office today and surprisingly tolerated that fairly well. He is on home oxygen 24 hours a day. He does not follow with pulmonary medicine. No previous strokes or vascular disease. No bleeding problems. He reports no orthopnea PND or lower extremity edema and no symptoms of palpitations. Recent pacemaker analysis reviewed with him and demonstrated atrial fibrillation since November 2023. Assessment/recommendations: 1-sick sinus syndrome with a pacemaker in place being followed closely 2-permanent atrial fibrillation on Eliquis with controlled rate. No antiarrhythmics. Asymptomatic. Will continue to monitor 3-CAD with previous stenting of coronary arteries for many years ago I do not have the records. No indication of recurrent angina pectoris and risk factor for CAD have been controlled. Presently no need for stress test 4-mild aortic stenosis based on echocardiogram July 2022 at [facility]. EF is normal. Follow-up echocardiogram is scheduled for next visit 5-essential hypertension, blood pressure is on the low side today and because of that lisinopril dose will be reduced down from 30 mg daily to 10 mg daily. He will continue hydrochlorothiazide 6-high risk medication with Eliquis without any bleeding complications 7-COPD from previous tobacco abuse on home oxygen 8-hyperlipidemia on pravastatin. Previously was on atorvastatin with significant leg cramps which did not improve on pravastatin. CQ ten 200 mg daily was recommended Review of Systems All other systems reviewed and are negative. Vitals: 03/16/24 1031 BP: 98/62 BP Location: Right arm Patient Position: Sitting Pulse: 68 Weight: 83.9 kg (185 lb) Height: 1.803 m (5' 11 ) Objective Physical Exam Constitutional: Appearance: Normal appearance. HENT: Nose: Nose normal. Neck: Vascular: No carotid bruit. Cardiovascular: Rate and Rhythm: Normal rate. Pulses: Normal pulses. Heart sounds: Normal heart sounds. Pulmonary: Effort: Pulmonary effort is normal. Abdominal: General: Bowel sounds are normal. Palpations: Abdomen is soft. Musculoskeletal: General: Normal range of motion. Cervical back: Normal range of motion. Right lower leg: No edema. Left lower leg: No edema. Skin: General: Skin is warm and dry. Neurological: General: No focal deficit present. Mental Status: He is alert. Psychiatric: Mood and Affect: Mood normal. Behavior: Behavior normal. Thought Content: Thought content normal. Judgment: Judgment normal. Allergies Cefaclor Current Medications Current Outpatient Medications: aspirin 81 mg EC tablet, Take 1 tablet (81 mg) by mouth 2 times a week., Disp: , Rfl: Eliquis 5 mg tablet, TAKE 1 TABLET BY MOUTH TWICE DAILY, Disp: 180 tablet, Rfl: 3 fish oil concentrate ([place]-3) 120-180 mg capsule, Take 1 capsule (1 g) by mouth every other day., Disp: , Rfl: fluticasone propion-salmeteroL (Advair HFA) 45-21 mcg/actuation inhaler, Inhale 2 puffs 2 times a day. Rinse mouth with water after use to reduce aftertaste and incidence of candidiasis. Do not swallow., Disp: , Rfl: hydroCHLOROthiazide (HYDRODiuril) 25 mg tablet, Take 1 tablet (25 mg) by mouth once daily., Disp: 90 tablet, Rfl: 3 lisinopril 30 mg tablet, Take 1 tablet (30 mg) by mouth once daily., Disp: 90 tablet, Rfl: 3 multivitamin (Daily Multi-Vitamin) tablet, Take 1 tablet by mouth once daily., Disp: , Rfl: oxygen (O2) gas therapy, Inhale 1 each once daily as needed., Disp: , Rfl: pravastatin (Pravachol) 40 mg tablet, Take 1 tablet (40 mg) by mouth once daily at bedtime., Disp: , Rfl: sertraline (Zoloft) 50 mg tablet, Take 1 tablet (50 mg) by mouth once daily., Disp: , Rfl: Trelegy Ellipta 100-62.5-25 mcg blister with device, Inhale 1 puff once daily., Disp: , Rfl: Assessment/Plan 1. Chronic a-fib (Multi) 2. Coronary artery disease involving [place] coronary artery of [place] heart without angina pectoris Follow Up In Cardiology 3. CHB (complete heart block) (Multi) Follow Up In Cardiology 4. SSS (sick sinus syndrome) (Multi) 5. S/P placement of cardiac pacemaker 6. Aortic valve stenosis, etiology of cardiac valve disease unspecified 7. Mixed hyperlipidemia 8. Essential hypertension Follow Up In Cardiology 9. intermediate current use of anticoagulant therapy 10. Overweight (BMI 25.0-29.9) 11. Former smoker Scribe Attestation By signing my name below, Audelia Ramsey LPN , Scribe attest that this documentation has been prepared under the direction and in the presence of Danilo Paniagua MD. Provider Attestation - Scribe documentation All medical record entries made by the Scribe were at my direction and personally dictated by me. I have reviewed the chart and agree that the record accurately reflects my personal performance of the history, physical exam, discussion and plan. documented in this encounter [facility] Work Phone: 03-16-2024 Instructions Audelia Ramey LPN - 03/16/2024 10:30 AM EDT Please bring all medicines, vitamins, and herbal supplements with you when you come to the office. Prescriptions will not be filled unless you are compliant with your follow up appointments or have a follow up appointment scheduled as per instruction of your physician. Refills should be requested at the time of your visit. BMI was above normal measurement. Current weight: 83.9 kg (185 lb) Weight change since last visit (-) denotes wt loss -15 lbs Weight loss needed to achieve BMI 25: 6.1 Lbs Weight loss needed to achieve BMI 30: -29.6 Lbs Provided instructions on dietary changes Provided instructions on exercise. Pacemaker/Defibrillator follow up per routine The following attachments cannot be sent through Care Everywhere.Heart Healthy Diet (Macedonian)documented in this encounter [facility] Work Phone: 06-14-2023 History of Present illness Narrative Subjective Alan Herrera is a [...] day., Disp: , Rfl: fish oil concentrate ([place]-3) 120-180 mg capsule, Take 1 capsule (1 [...] by mouth once daily., Disp: , Rfl: Trelesidney Ellipta 100-62.5-25 mcg blister with device, Inhale 1 puff once daily., Disp: , Rfl: Assessment/Plan 1. Coronary artery disease involving [place] coronary artery of [place] heart without angina pectoris Asymptomatic without anginal [...] maintenance were advocated. 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 No bleeding complications Mar, ADEN (obstructive sleep apnea) (ICD-10 - G47.33) This patient is aware of the benefits associated with ADEN: With continued use, the patient reduces the risk for IL, CVA, HTN, cardiac dysrhythmias and sudden cardiac [...] tract symptoms (ICD-10 - N40.1) Symptoms tolerable. [facility] Other 09-05-2023 Evaluation note* Encounter Date Diagnosis Assessment Notes Treatment Notes Treatment Clinical Notes Mar, Primary hypertension (ICD-10 - I10) [facility] Other 08-02-2023 Evaluation note* Encounter Date Diagnosis Assessment Notes Treatment Notes Treatment Clinical Notes Feb, Mucopurulent chronic bronchitis (ICD-10 - J41.1) Feb, Pulmonary nodule (ICD-10 - R91.1) CT: lingula 2.1cm (following w/ Samsa) LDCT: no suspicious nodules - 02/2023 [facility] Other 08-02-2023 Evaluation note* Encounter Date Diagnosis Assessment Notes Treatment Notes Treatment Clinical Notes Feb, Solitary pulmonary nodule (ICD-10 - R91.1) LDCT 02/02/2022 showed no change in lingula nodule @ 2.1cm. Resuming LDCT, due 01/2023. Feb, Mucopurulent chronic bronchitis (ICD-10 - J41.1) Feb, ADEN (obstructive sleep apnea) (ICD-10 - G47.33) [facility] Other 06-28-2023 NoteChief Complaint consultation for colonoscopy [...] stenosis, ADEN, referred for surveillance colonoscopy; last [id number] with diverticular disease; h/o colonoscopy in 2012 [...] sertraline, 50 mg, Oral, (more content not included)...[facility]Result Comment: Electronically Signed By: HOSSEIN BREAUX, Silas Wong\Date and Time Signed: 01/13/23 13:45 [id number] [facility] COVID- 19 [facility]Range:Negative Comments:Testing for SARS-CoV-2 by RT-PCR This test was developed and its performance characteristics determined by [employer]) and validated at the [facility]. This test has not been FDA [...] the authorization is terminated or revoked sooner.PERFORMED BY:[place] [address] [address] [place], [place] [phone] MEDICAL DIRECTORROSCOE LEMUS M.D. [address] Work Phone: Comment on above:Testing for SARS-CoV-2 by RT-PCR This test was developed and its performance characteristics determined by [employer] ([employer]) and validated at the [facility]. This test has not been FDA [...] the authorization is terminated or revoked sooner.PERFORMED BY:[place] [address] [place], [place] [phone] MEDICAL KRISTA LEMUS M.D. 11-04-2021 NoteFR COVID-19 [facility] (Normal[facility]Range:Negative Comments:Testing for SARS-CoV-2 by RT-PCR This test was developed and its performance characteristics determined by [employer] ([place]) and validated at the [facility]. This test has not been FDA [...] the authorization is terminated or revoked sooner.PERFORMED BY:[facility] [place], [place] [phone] MEDICAL DIRECTORROSCOE LEMUS M.D. [place] [address] DO Work Phone: Comment on above:Testing for SARS-CoV-2 by RT-PCR This test was developed and its performance characteristics determined by [employer] ([place]) and validated at the [facility]. This test has not been FDA [...] the authorization is terminated or revoked sooner.PERFORMED BY:[facility] [place], [place] [phone] MEDICAL DIRECTORROSCOE LEMUS M.D. Chief complaint Narrative - ReportedALAN HERRERA is being seen for a cardiovascular evaluation of gen change 2016.-[facility] [address] DO Work Phone: Evaluation + Plan note No data available for this section General Surgery [place] Evaluation noteNo assessment information available [facility] Work Phone: Evaluation noteNo InformationNort Br[employer] Other Evaluation note* Diagnosis Coronary artery disease involving [place] coronary artery of [place] heart without angina pectoris- Primary CHB (complete heart block) (CMS/HCC) Atrioventricular block, complete S/P placement of cardiac pacemaker Mixed hyperlipidemia Essential hypertension Unspecified essential hypertension Nonrheumatic aortic valve stenosis Paroxysmal atrial fibrillation (CMS/HCC) Atrial fibrillation Overweight (BMI 25.0-29.9) Overweight documented in this encounter [facility] Work Phone: Evaluation note* Diagnosis Onset Date Resolution Status ASHD (arteriosclerotic heart disease) acute Atrial fibrillation acute Benign prostatic hyperplasia with lower urinary tract symptoms acute Chronic bronchitis acute HTN (hypertension) acute Hypercholesterolemia acute ADEN (obstructive sleep apnea) acute Medicare annual wellness visit, subsequent noneactive [facility] Work Phone: Evaluation note* Diagnosis Onset Date Resolution Status Admit Date ASHD (arteriosclerotic heart disease) acute June 08, 2 024 11:25am Atrial fibrillation acute Novem davidson 2023 11:25am Benign prostatic hyperplasia with lower urinary tract symptoms acute Nov emb2023 11:25am Chronic bronchitis acute Novemb er 2023 11:25am HTN (hypertension) acute Novemb er 2023 11:25am Hypercholesterolemia acute Nove mber 2023 11:25am ADEN (obstructive sleep apnea) acute June 08, 2024 11:25am [facility] Work Phone: Evaluation note* Diagnosis Chronic a-fib (Multi) Atrial fibrillation Coronary artery disease involving [place] coronary artery of [place] heart without angina pectoris CHB (complete heart block) (Multi) Atrioventricular block, complete SSS (sick sinus syndrome) (Multi) Sinoatrial node dysfunction S/P placement of cardiac pacemaker Aortic valve stenosis, etiology of cardiac valve disease unspecified Mixed hyperlipidemia Essential hypertension 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 Overweight (BMI 25.0-29.9) Overweight Former smoker Personal history of tobacco use, presenting hazards to health documented in this encounter [facility] Work Phone: Hiskwnj general Narrative - Reported* Type Description Date Medical History Hypercholesteremia Medical History HTN (hypertension) Medical History Depression Medical History COPD (chronic obstructive pulmon nicholas disease) Surgical History cardiac pacemeker Hospitalization History see surgical hx [facility] Other History general Narrative - Reported* Type Description Date Medical History Hypercholesteremia Medical History HTN (hypertension) Medical History Depression Medical History COPD (chronic obstructive pulmon nicholas disease) Surgical History cardiac pacemeker Surgical History Colonoscopy w/ polypectomy, rep eat 5 years 01/2023 Hospitalization History see surgical hx [facility] Other History of Present illness Narrative* Patient [...] as originally intended ede in several months. [facility] 250 DO Work Phone: History of Present [...] the merits of diet exercise and weight loss.[facility] 250 DO Work Phone: History of Present [...] will provide guidance regarding carotid disease management. -[facility] [address] DO Work Phone: History of Present [...] will provide guidance regarding carotid disease management. [facility] Work Phone: History of Present illness Narrative* [...] will provide guidance regarding carotid disease management. [facility] Work Phone: History of Present illness NarrativeReturns [...] is soft suggesting only mild to moderate stenosis.-[place] [address] DO Work Phone: History of Present illness [...] of weight loss and diet were advocated. [place] [address] DO Work Phone: Hospital Discharge instructions No data available for this section General Surgery [place] Progress note No data available for this section General Surgery [place] Reason for referral (narrative)* Consultation (Routine) - Authorized Specialty Diagnoses / Procedures Referred By Bon t Referred To Contact Cardiology Diagnoses Coronary artery disease involving [place] coronary artery of [place] heart without angina pectoris CHB (complete heart block) (CMS/HCC) Essential hypertension Procedures Follow Up In Cardiology Angel Betancourt MD [address] [facility] [address], [address] [address] Angel Betancourt MD [address] [facility] [address], [address] [address] Referral ID Status Reason Start Date Expiration Date V isits Requested Visits Authorized [id number] Authorized 06/14/2023 06/13/2024 [address] [facility] Work Phone: Chief Complaint and Reason [...] sleep apnea) Medicare annual wellness visit, subsequent Chief Complaint Admit Date CC Adult Risk Stratification May [id number] 2:03pm 6 month f/u June 08, 2024 11:25am Reason for Visit Admit Date ASHD (arteriosclerotic heart disease) No vem2023 11:25am Atrial fibrillation June 08, 2024 11:25am Benign prostatic hyperplasia with lower urinary tract symptoms June 08, 2024 11:25am Chronic bronchitis June 08, 2024 11:25am HTN (hypertension) June 08, 2024 11:25am Hypercholesterolemia June 08, 2024 11:25am ADEN (obstructive sleep apnea) May 202023 11:25am Advance Directives Advance Directive Response Recorded Date/ [...] done by Dr. Angel Betancourt MD at [facility] on 11/06/2021. Dr. Angel Albarran, DO in suite. Pt denies any cardiac compliants. Med list updated verbally. Pt was given ATBS andfinished them. Insertion site has no signs of drainage or infection. There are no sterri strips intact. Insertion site reviewed by Tenzin Martínez RN prior to discharge. To Dr. Angel Betancourt MD for review.ALANМАРИНА HERRERA is being seen for Results.ALAN HERRERA is being seen for Results.ALAN HERRERA is being seen for Results.ALAN HERRERA is being seen for Results.results.results. Summary Purpose Reason for Referral Specialty Diagnoses / Procedures Referred By Contac t Referred To Contact Cardiology Diagnoses Aortic valve stenosis, etiology of cardiac valve disease unspecified Procedures Transthoracic Echo Complete MS ECHO TTHRC R-T 2D W/WOM-MODE COMPL SPEC&COLR D Danilo Paniagua MD [address] [facility] [address], [address] [address] Referral ID Status Reason Start Date Expiration Date Visits Requested Visits Authorized [id number] Pending Review Perform Procedure 03/16/2024 03/16/2025 1 1 Specialty Diagnoses / Procedures Referred By Contac t Referred To Contact Cardiology Diagnoses Coronary artery disease involving [place] coronary artery of [place] heart without angina pectoris CHB (complete heart block) (Multi) Procedures Follow Up In Cardiology Danilo Paniagua MD [address] [place] [address] [address], [address] [address] Danilo Paniagua MD [address] [place] [address] [address], [address] [address] Referral ID Status Reason Start Date Expiration Date V isits Requested Visits Authorized [id number] Authorized 03/16/2024 03/16/2025 1 1 Additional Source Comments Care Teams (unrecognized sec [...] Primary Care Provider, Attending Kali segovia 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 Start Date End Date Caesar Glover MD PCP - General 10/24/21 Team Status: Inactive Member Role Status Dates Ferny White DO Primary Care Provide r, Attending Provider Active Start: December 06, 2023 End: December 06, 2023 Team Status: Active Member Role Status Dates Ferny White DO Primary Care Provide r, Attending Provider Active Start: May 31, 2024 Team Status: Active Member Role Status Shelly White DO Primary Care Provide r, Attending Provider Active Start: June 06, 2024 Team Status: Inactive Member Role Status Dates Ferny White DO Primary Care Provide r, Attending Provider Active Start: June 08, 2024 End: June 08, 2024 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 Start Date End Date Caesar Glover MD [address] [place] [address] [address] [place] [address] PCP - General 10/24/21 Goals (unrecognized section and content) Goals may [...] section and content) DATE CREATED AUTHOR 05/11/2022 [facility] DATE CREATED AUTHOR AUTHOR'S ORGANIZ ATION 08/15/2022 [facility] DATE CREATED AUTHOR AUTHOR'S ORGANIZ ATION 09/20/2022 [facility] DATE CREATED AUTHOR AUTHOR'S ORGANIZ ATION 03/08/2023 [facility] DATE CREATED AUTHOR AUTHOR'S ORGANIZ ATION 03/18/2023 [facility] DATE CREATED AUTHOR AUTHOR'S ORGANIZ ATION 06/14/2023 [facility] DATE CREATED AUTHOR AUTHOR'S ORGANIZ ATION 04/06/2024 [facility] REASON FOR VISIT (unrecogniz ed section and content) Reason Comments Follow-up 9 month Reason Comments Follow-up 9 month Specialty Diagnoses / Procedures Referred By Contrufus t Referred To Contact Cardiology Diagnoses Coronary artery disease involving [place] coronary artery of [place] heart without angina pectoris CHB (complete heart block) (Multi) Essential hypertension Procedures Follow Up In Cardiology Angel Betancourt MD Retired From Practice Angel Betancourt MD Retired From Practice Referral ID Status Reason Start Date Expiration Date V isits Requested Visits Authorized [id number] Authorized 06/14/2023 06/13/2024 1 1 FOR RECORDS PERTAINING TO PATIENTS WHO ARE [...] BE BASED ON THE PRIMARY CLINICAL RECORDS. [facility] [facility]. provides no warranty or guarantee of the accuracy or completeness of information in this document.
== END 2024-09-01 10:12 | disposition home or self-care (01) ==
LOC: CT 10:11
PROVIDERS: PCP Internal Medicine; Visit Provider Internal Medicine
DX: Z87.891 Personal history of nicotine dependence (principal); Z12.2 Encounter for screening for malignant neoplasm of respiratory organs; R91.8 Other nonspecific abnormal finding of lung field
CPT/HCPCS: 71271

== ENCOUNTER 2024-09-06 10:05 | Outpatient (OUT) | payer MEDICARE, SELFPAY ==
[2024-09-06 10:38] LABS: ABG PCO2 39.5 mmHg (35.0-45.0); PO2 ABG 67.4 mmHg (80.0-100.0); pH ABG 7.445 (7.350-7.450)
[2024-09-06 10:39] LABS: Allen Test POSITIVE (POSITIVE); Base Excess ABG 3.1 mmol/L (-2.0-2.0); HCO3 ABG 27.2 mmol/L (22.0-26.0); O2 Mode ROOM AIR; Oxygen Saturation ABG 93.6 %; Puncture Site RB
== END 2024-09-06 10:06 | disposition home or self-care (01) ==
LOC: CARD 10:06
PROVIDERS: PCP Internal Medicine; Visit Provider Internal Medicine
DX: J43.2 Centrilobular emphysema (principal)
CPT/HCPCS: 36600; 82805

== ENCOUNTER 2024-10-19 10:57 | Outpatient (OUT) | payer MEDICARE, SELFPAY ==
[2024-10-19 11:20] LABS: Basophils Percent Auto 0.3 % (0.2-2.0); Eosinophils Absolute Auto 0.3 10^3/uL (0.0-0.7); Eosinophils Percent Auto 3.3 % (0.9-7.0); Hematocrit 43.6 % (42.0-54.0); Hemoglobin 14.3 g/dL (14.0-18.0); Immature Granulocytes Abs Auto 0.03 10^3/uL (0.00-0.03); Immature Granulocytes Pct Auto 0.4 % (0.0-0.5); Lymphocytes Absolute Auto 1.6 10^3/uL (1.2-3.8); Lymphocytes Percent Auto 20.6 % (20.5-60.0); Mean Corpuscular HGB Conc 32.8 g/dL (29.9-35.2); Mean Corpuscular Hemoglobin 31.2 pg (25.9-34.0); Mean Corpuscular Volume 95.2 fL (80.0-94.0); Mean Platelet Volume 11.6 fL (9.5-13.5); Monocytes Absolute Auto 0.6 10^3/uL (0.3-0.8); Monocytes Percent Auto 7.4 % (1.7-12.0); Neutrophils Absolute Auto 5.2 10^3/uL (1.4-6.5); Platelet Count 173 10^3/uL (150-450); Red Blood Count 4.58 10^6/uL (4.70-6.10); Red Cell Distribution Width 15.9 % (11.0-15.0); White Blood Count 7.6 10^3/uL (4.0-11.0)
[2024-10-19 11:33] LABS: Albumin Level 3.8 g/dL (3.4-5.0); Anion Gap 12.7; BUN Creatinine Ratio 19.3; Carbon Dioxide 28.9 mmol/L (21.0-32.0); Chloride 107 mmol/L (98-107); Estimated GFR (African America >60 (>=60 mL/min/1.73m^2); Estimated GFR (Non-African Ame >60 (>=60 mL/min/1.73m^2); Glucose 107 mg/dL (74-106); Phosphorus 3.4 mg/dL (2.6-4.7); Potassium 3.6 mmol/L (3.5-5.1); Sodium 145 mmol/L (136-145)
== END 2024-10-19 10:58 | disposition home or self-care (01) ==
LOC: LAB 11:00
PROVIDERS: PCP Internal Medicine
DX: I35.0 Nonrheumatic aortic (valve) stenosis (principal)
CPT/HCPCS: 36415; 80069; 85025

== ENCOUNTER 2024-11-14 09:46 | Outpatient (OUT) | payer MEDICARE, SELFPAY ==
[2024-11-14 10:05] LABS: Basophils Percent Auto 0.4 % (0.2-2.0); Eosinophils Absolute Auto 0.2 10^3/uL (0.0-0.7); Eosinophils Percent Auto 2.6 % (0.9-7.0); Hematocrit 43.6 % (42.0-54.0); Hemoglobin 14.5 g/dL (14.0-18.0); Immature Granulocytes Abs Auto 0.04 10^3/uL (0.00-0.03); Immature Granulocytes Pct Auto 0.5 % (0.0-0.5); Lymphocytes Absolute Auto 1.5 10^3/uL (1.2-3.8); Lymphocytes Percent Auto 19.1 % (20.5-60.0); Mean Corpuscular HGB Conc 33.3 g/dL (29.9-35.2); Mean Corpuscular Hemoglobin 31.6 pg (25.9-34.0); Mean Platelet Volume 11.2 fL (9.5-13.5); Monocytes Absolute Auto 0.4 10^3/uL (0.3-0.8); Monocytes Percent Auto 4.9 % (1.7-12.0); Neutrophils Absolute Auto 5.8 10^3/uL (1.4-6.5); Neutrophils Percent Auto 72.5 % (43.0-75.0); Platelet Count 174 10^3/uL (150-450); Red Blood Count 4.59 10^6/uL (4.70-6.10); Red Cell Distribution Width 15.5 % (11.0-15.0)
[2024-11-14 10:17] LABS: Anion Gap 12.2; BUN Creatinine Ratio 15.5; Carbon Dioxide 29.1 mmol/L (21.0-32.0); Chloride 104 mmol/L (98-107); Estimated GFR (African America >60 (>=60 mL/min/1.73m^2); Estimated GFR (Non-African Ame >60 (>=60 mL/min/1.73m^2); Glucose 165 mg/dL (74-106); Potassium 3.3 mmol/L (3.5-5.1); Sodium 142 mmol/L (136-145)
[2024-11-14 10:23] LABS: INR 1.15
== END 2024-11-14 09:47 | disposition home or self-care (01) ==
LOC: LAB 09:50
PROVIDERS: PCP Internal Medicine
DX: I35.0 Nonrheumatic aortic (valve) stenosis (principal)
CPT/HCPCS: 36415; 80048; 85025; 85610

== ENCOUNTER 2024-11-29 10:26 | Outpatient (OUT) | payer MEDICARE, SELFPAY ==
--- NOTE | 2024-11-29 | CT_ITS ---
The [address] [address] Patient Name: BERNARD HERRERA MRN: [id number] date: 1945 Sex: M Assigned Patient Location: CT Current Patient Location: CT Accession/Order Number: [id number] Exam Date: 11/29/2024 10:58 Report Date: 11/29/2024 11:06 At the request of: STALIN ONOFRE DO Procedure: CT chest wo con CT chest wo con 11/29/2024 10:35 AM SIGN AND SYMPTOMS: Follow-up pulmonary nodules TECHNIQUE: Multidetector CT axial slices of the chest were obtained without IV contrast. Multiplanar reformats were performed and viewed on a separate workstation and reviewed to further define anatomy and possible pathology. CT was performed with one or more of the following dose reduction techniques: Automated exposure control, adjustment of the mA and/or kV according to patient size, or use of iterative reconstruction technique. COMPARISON: 09/01/2024. FINDINGS: Lower neck: Thyroid gland within normal limits, no supraclavicle adenopathy. Vessels: Atherosclerotic changes are noted in the thoracic aorta, origins of great vessels, and the coronary arteries. 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 Mediastinum and Nani: Within normal limits. Heart: Normal size. No pericardial effusion. Airways: Within normal limits Lungs: Emphysematous changes are present in the lung parenchyma. There is a 6 mm noncalcified nodule in the right posterior costophrenic sulcus on axial image 93 which is unchanged. There is a 7 mm noncalcified nodule in the right lower lobe posteriorly on axial image 60 which is unchanged. There is similar pleural-based scarring in the lingula. Pleura: Within normal limits. Chest Wall: Within normal limits. Upper Abdomen: Within normal limits. Bones: Degenerative changes are noted in the thoracic spine. CT/CT chest wo con IMPRESSION: No acute cardiopulmonary pathology. Emphysematous changes are present in the lung parenchyma. There is a 6 mm noncalcified nodule in the right posterior costophrenic sulcus on axial image 93 which is unchanged. There is a 7 mm noncalcified nodule in the right lower lobe posteriorly on axial image 60 which is unchanged. Impression dictated by: Axel Giang M.D. 11/29/2024 11:06 AM Dictation Location: [place] [address] Electronically authenticated by: [id number] Y Date: 11/29/2024 11:06
--- OUTSIDE RECORDS SUMMARY | 2024-11-29 10:49 | XMS_ITS | CCD ---
Author Organization [facility]Sy[facility] Care Team Providers Care Accident Report Clerk Name Role Phone MD Caesar Glover Primary Care Provider MD Angel Woods Attending Provider MD Caesar Glover Attending Provider Caesar Glover Unavailable Unavailable Unavailable MD Caesar Glover Primary Care Provider MD Caesar Glover Attending Provider MD Angel Woods Attending Provider MD Caesar Glover Primary Care Provider MD Caesar Glover Primary Care Provider MD Angel Woods Attending Provider ASIA BOWLES, Dr. LINDER Attending Bernard Glover, Dr. Caesar Jesus Primary Care Romel WOODS II, Dr. LINDER Attending Bernard WOODS II, Dr. LINDER Referring Bernard Glover, Dr. Caesar Jesus Primary Care MD Caesar Hargrove Primary Care Provider MD Angel Woods Attending Provider DR CAESAR GLOVER Primary Care Unavailable ASIA, DR LINDER Admitting Unavailable ASIA, DR LINDER Attending Unavailable ASIA, DR LINDER Consulting Unavailable MISC, DR PUTNAM Admitting Unavailable DR CAESAR GLOVER Primary Care Unavailable MISC, DR PUTNAM Attending Unavailable MISC, DR PUTNAM Consulting Unavailable STALIN ONOFRE Attending Unavailable BELEN, DR CAESAR Perea Consulting Unavailable BELEN, DR CAESAR Perea Primary Care Unavailable STALIN ONOFRE Admitting Unavailable SAMSA, STALIN Consulting Unavailable SAMSA, STALIN Admitting Unavailable SAMSA, STALIN Attending Unavailable BELEN, DR CAESAR Perea Primary Care Unavailable SAMSA, STALIN Attending Unavailable TONY, DR OSIRIS Clinton Consulting Unavailable EBLEN, DR CAESAR Perea Primary Care Unavailable SAMSA, STALIN Admitting Unavailable SAMSA, STALIN Consulting Unavailable ASIA, DR LINDER Admitting Unavailable ASIA, DR LINDER Attending Unavailable ASIA, DR LINDER Consulting Unavailable BELEN, DR CAESAR Perea Primary Care Unavailable MD Caesar Glover Primary Care Provider MD Angel Woods Attending Provider Ferny White Unavailable CAESAR GLOVER Primary Care Physician Caesar Glover Unavailable MD Caesar Glover Primary Care Provider MD Angel Woods Attending Provider Caesar Glover MD Primary Care Provider Unavailable MD Angel Woods Attending Provider DO Ferny White Primary Care Provider Caesar Glover MD Primary Care Provider Ferny White DO Primary Care Provider Juan Manuel Haynes MD Attending Provider Ferny White DO Primary Care Provider Juan Manuel Haynes MD Attending Provider Danilo Gardner MD Attending Provider Angel Woods Admitting Unavail able Angel Woods Attending Unavail able Ferny White Primary Care Unavailable Ferny White Primary Care Unavailable Juan Manuel Haynse Admitting Unavailable Juan Manuel Haynes Attending Unavailable Danilo Gardner Attending Unavailable Ferny White Primary Care Unavailable Danilo Gardner Admitting Unavailable Ferny White Primary Care Unavailable Danilo Gardner Admitting Unavailable Danilo Gardner Attending Unavailable DANILO GARDNER M Referring Unavailable CAESAR GLOVER Primary Care Unavailable AMANDA WARD Referring Unavailable CAESAR GLOVER Primary Care Unavailable Lupis Richey LPN Unavailable [phone] Danilo Gardner MD Unavailable DANILO GARDNER Attending Unavailable ANGEL WOODS Referring Unavailable CAESAR GLOVER Primary Care Unavailable DANILO GARDNER Attending Unavailable DANILO GARDNER Referring Unavailable CAESAR GLOVER Primary Care Unavailable DANILO GARDNER Attending Unavailable CAESAR GLOVER Primary Care Unavailable MD BETO HUNTER Attending MD BETO Pruitt Admitting Unavapenelope labmarvin HUNTER BETO F Attending Unavailab CAESAR Ho Primary Care Unavailable DANILO GARDNER Referring Unavailable CAESAR GLOVER Primary Care Unavailable ANTONIO MEDRANO Attending Unavailable ATTIZZLOS, BETO F Admitting Unavailab le ATTIZZLOS, BETO F Attending Unavailab CAESAR Ho Primary Care Unavailable ATTBETO PONCE Admitting Unavailab le ATTKRIS, BETO F Attending Unavailab CAESAR Ho Primary Care Unavailable DANILO GARDNER Referring Unavailable Allergies Allergy Classification Reported Allergen(s) Allergy Type Date of Onset Reaction(s) Facility (20 sources) Cefaclor; Translations: [Ceclor CAPS] Drug Allergy Hives, Itching [facility] 250 DO Work Phone: (20 sources) Cefaclor; Translations: [Cefaclor] Drug Allergy 10-30-19 22 Eruption of skin (disorder), Hives, Itching [facility] (8 sources) Cefaclor; Translations: [Ceclor] Drug Allergy 07-19-19 13 Unknown [facility] (6 sources) Ceclor *CEPHALOSPORINS* Propensity to adverse reactions Unknown EntraTympanic Other (6 sources) Allergies Reconciled Propensity to adverse reactions Unknown EntraTympanic Other (6 sources) patient allergy list reviewed by nurse or physicia Propensity to adverse reactions 04-08-20 18 Comment:Done EntraTympanic Other (6 sources) Cephalosporins (Antibiotic); Translations: [Cephalosporins] Allergy to substance 12-06-19 Unknown Reaction, [facility] Medications Current Medications Medication Drug Class(es) Dates Sig (Normalized) Sig (Original) Acetaminophen (1 source) Start: 11-17-2024 take 1 tablet by mouth every six hours as needed acetaminophen (Tylenol) tablet 650 mg Aclidinium Robson (20 sources) Start: 10-29-2021 Aclidinium Robson (Tudorza Pressair) 400 mcg/actuation aerosol powdr breath activated Active 1 INH INHALATION As Directed October 29, 2021 9:32am Start: 10-29-2021 End: 10-29-2021 Aclidinium Robson (Tudorza Pressair) 400 mcg/actuation aerosol powdr breath activated Discontinued INHALATION October 29, 2021 9:32am October 29, 2021 9:40am Start: 10-29-2021 End: 12-03-2023 Aclidinium Robson (Tudorza Pressair) 400 mcg/actuation aerosol powdr breath activated Discontinued 1 INH INHALATION As Directed October 28, 2021 11:00pm December 03, 2023 7:14am Start: 10-29-2021 End: 12-03-2023 Aclidinium Robson (Tudorza Pressair) 400 mcg/actuation aerosol powdr breath activated Discontinued 1 INH INHALATION As Directed October 29, 2021 12:00am December 03, 2023 8:14am Start: 10-29-2021 Aclidinium Bro mide (Tudorza Pressair) 400 mcg/actuation aerosol powdr breath activated Active 1 INH INHALATION As Directed October 28, 2021 11:00pm Start: 10-29-2021 End: 10-29-2021 Aclidinium Robson (Tudorza Pressair) 400 mcg/actuation aerosol powdr breath activated Discontinued INHALATION October 28, 2021 11:00pm October 29, 2021 8:40am Start: 10-29-2021 Aclidinium Bro mide (Tudorza Pressair) 400 mcg/actuation aerosol powdr breath activated Active 1 INH INHALATION As Directed October 29, 2021 12:00am Start: 10-29-2021 End: 10-29-2021 Aclidinium Robson (Tudorza Pressair) 400 mcg/actuation aerosol powdr breath [...] INHALATION Q6H as needed for SOB/wheezing October 29, 2021 12:00am December 06, 2023 [...] needed Inhalation every 4 hrs Oct, Active take 2 puff(s) by in halation every six hours for wheezing albuterol 90 mcg/actuation aerosol powdr breath activated inhaler Inhale 2 puffs every 6 hours if needed for wheezing. Active albuterol 0.833 mg/ml / ipratropium bromide 0.167 mg/ml inhalation solution (16 sources) Anticholinergic, beta2-Adrenergic Agonist Start: 01-08-2022 3 mL, nebulization, 4 times daily PRN, wheezing, shortness of breath, Starting on Wed11/17/24 at 0843 24 hr alfuzosin hydrochloride 10 mg extended release oral tablet (20 sources) alpha-Adrenergic Niecy Start: 11-17-2024 take 10 mg by mouth once daily 10 mg, oral, Nightly, First dose on Wed11/17/24 at 2100, Do not crush, chew, or split. Start: 10-24-2024 take 1 tablet by kim th every twenty-four hours at mealtime Alfuzosin 10 mg tablet extended release 24 hr Active 10 MG PO Bedtime October 24, 2024 12:00am administer after the same meal each day Start: 12-24-2022 End: 10-24-2024 take 1 tablet by mouth once daily at mealtime Alfuzosin 10 mg tablet extended release 24 hr Discontinued 10 MG PO Daily February 23, 2024 2:29pm October 24, 2024 11:11am administer after the same meal each day amLODIPine 5 mg oral tablet (20 sources) Dihydropyridine Calcium Channel Niecy Start: 11-17-2024 take 2.5 mg by mouth once daily 2.5 mg, oral, Daily, First dose on Wed11/17/24 at 1845 Start: 07-13-2023 End: 03-16-2024 take 1 tablet by mouth once daily amLODIPine (Norvasc) 10 mg tablet Indications: Essential hypertension TAKE 1 TABLET BY MOUTH DAILY 90 tablet 3 07/13/2023 03/16/2024 Discontinued (Therapy completed) Start: 04-09-2021 End: 06-08-2024 take 1 tablet by mouth once daily Amlodipine 5 mg tablet Discontinued 5 MG PO Daily October 29, 2021 12:00am June 08, 2024 1:39pm Start: 07-07-2016 End: 06-14-2023 take 1 tablet by mouth once daily amLODIPine (Norvasc) 10 mg tablet Take 1 tablet (10 mg) by mouth once daily. 0 04/06/2022 06/14/2023 Discontinued (Side effects) apixaban 5 mg oral tablet (20 sources) Factor Xa Inhibitor Start: 08-19-2023 take 1 tablet by mouth twice daily Eliquis 5 mg tablet Indications: Paroxysmal atrial fibrillation (Multi) TAKE 1 TABLET BY MOUTH TWICE DAILY 180 tablet 3 09/18/2024 Active Start: 09-16-2022 take 1 tablet by kim th twice daily Eliquis 5 mg tablet Take 1 tablet (5 mg) by mouth 2 times a day. 0 09/16/2022 Active aspirin 81 mg delayed release oral tablet (20 sources) Platelet Aggregation Inhibitor, Nonsteroidal Anti-inflammatory Drug Start: 11-18-2024 End: 11-19-2025 take 1 tablet by mouth once daily aspirin 81 mg EC tablet Indications: Aortic stenosis , S/P TAVR (transcatheter aortic valve replacement) Take 1 tablet (81 mg) by mouth once daily. 90 tablet 3 11/19/2024 11/19/2025 Active Start: 11-17-2024 End: 11-17-2024 take 324 mg by mouth once 324 mg, oral, Once, On Wed at 0845, For 1 dose, Preprocedure Start: 09-18-2022 End: 11-19-2024 Aspirin (Adult Low Dose Aspi rin) 81 mg tablet,delayed release (DR/EC) Active 81 MG PO Twice a Week October 24, 2024 12:00am Start: 10-29-2021 End: 12-03-2023 Aspirin (Ching Low Dose Aspi rin) 81 mg Tablet,Delayed Release (Dr/Ec) Discontinued 81 MG PO Daily October 29, 2021 12:00am December 03, 2023 8:14am take 1 tablet by kim every week aspirin 81 mg EC tablet Take 1 tablet (81 mg) by mouth 1 (one) time per week. 0 Active atorvastatin 20 mg oral tablet (20 sources) HMG-CoA Reductase Inhibitor Start: 11-17-2024 take 20 mg by mouth once daily 20 mg, oral, Nightly, First dose on Wed11/17/24 at 2100 Start: 06-08-2024 End: 10-24-2024 take 1 tablet by mouth once daily Atorvastatin 20 mg tablet Discontinued 20 MG PO Daily June 08, 2024 1:00am October 24, 2024 11:06am Start: 03-03-2022 End: 03-16-2024 take 1 tablet by mouth at bedtime atorvastatin (Lipitor) 20 mg tablet Indications: Mixed hyperlipidemia TAKE 1 TABLET BY MOUTH AT BEDTIME 90 tablet 3 10/19/2023 03/16/2024 Discontinued (Alternate therapy) dexamethasone 6 mg oral tablet (7 sources) Corticosteroid Start: 10-31-2020 take 1 tablet by mouth every twenty-four hours Dexamethasone 6 MG 1 tablet Orally Once a day for 5 days Oct, Active docosahexaenoic acid 120 mg / eicosapentaenoic acid 180 mg oral capsule (20 sources) take 1 capsule by mouth every other day fish oil concentrate ([place]-3) 120-180 mg capsule Take 1 capsule (1 g) by mouth every other day. Active take 1 capsule by mouth every ot her day Fish Oil 1000 MG Oral Capsule TAKE 1 CAPSULE EVERY OTHER DAY Quantity: 0 Refills: 0 Ordered: 24-Oct-2021 DO Active docusate sodium 100 mg oral capsule (1 source) Start: 11-17-2024 take 100 mg by mouth twice daily for constipation 100 mg, oral, 2 times daily, First dose on Wed11/17/24 at 1315, Phase II/On Unit, Bowel Regimen - for prevention of constipation Hold for loose stools EPINEPHrine 0.01 mg/ml / lidocaine hydrochloride 20 mg/ml injectable solution (1 source) Antiarrhythmic, alpha-Adrenergic Agonist, beta-Adrenergic Agonist, Catecholamine, Amide Local Anesthetic Start: 11-17-2024 5 mL, subcutaneous, Once as needed, groin bleed, Starting on Wed11/17/24 at 1256, For 1 dose, Phase II/On Unit, Inject at site of bleed Fish Oils (1 source) Start: 10-24-2024 take 1 capsule by mouth every other day Fish OiL Active 1 CAP PO .every other day October 24, 2024 12:00am Fluticasone Propion-Salmeterol (20 sources) Corticosteroid, beta2-Adrenergic Agonist Start: 10-24-2024 Fluticasone Propion-Salmetero l (Advair Hfa) 45-21 mcg/actuation HFA aerosol inhaler Active 2 INH INHALATION Twice daily as needed for shortness of breath or wheezing October 24, 2024 12:00am Start: 10-29-2021 take 1 puff(s) by in [...] Ordered: 14-Aug-2021 DO Start : 28-Nov-2020 Active End: 11-16-2024 take 2 puff(s) by mouth twice daily fluticasone propion-salmeteroL (Advair HFA) 45-21 mcg/actuation inhaler Inhale 2 puffs 2 times a day. Rinse mouth with water after use to reduce aftertaste and incidence of candidiasis. Do not swallow. 11/16/2024 Discontinued (Entered in Error) 30 actuat fluticasone furoate 0.1 mg/actuat / umeclidinium 0.0625 mg/actuat / vilanterol 0.025 mg/actuat dry powder inhaler (17 sources) Anticholinergic, Corticosteroid, beta2-Adrenergic Agonist Start: 12-01-2022 take 1 puff(s) by inhalation once daily Trelegy Ellipta 100-62.5-25 MCG/ACT 1 puff Inhalation Once a day November, Active Start: 06-21-2022 take 1 puff(s) by in halation once daily Trelegy Ellipta 100-62.5-25 mcg blister with device Inhale 1 puff once daily. 06/21/2022 Active Rtjlkkrjrnh-Kvvowquhd-Ksgpqn er (5 sources) Start: 12-06-2023 Efdaoptwpco-Fnmrrqucl-Cnebvj er (Trelegy Ellipta) 200-62.5-25 mcg blister with device Active 1 INH INHALATION Daily December 05, 2023 11:00pm Start: 12-06-2023 Fluticasone-Um eclidin-Vilanter (Trelegy Ellipta) 200-62.5-25 mcg blister with device Active 1 INH INHALATION Daily December 06, 2023 12:00am folic acid 0.4 mg oral tablet (7 sources) Start: 11-18-2024 take 0.8 mg by mouth once daily 0.8 mg, oral, Daily, First dose on 11/18/24 at 0900 Start: 03-06-2024 take 1 tablet by mouth once da radha Folic Acid 1 mg tablet Active 1 MG PO Daily March 06, 2024 12:00am take 1 tablet by mouth once hussein y folic acid (Folvite) 800 mcg tablet Take 1 tablet (0.8 mg) by mouth once daily. Active 1 ml heparin sodium, porcine 5000 unt/ml injection (1 source) Unfractionated Heparin, Anti-coagulant Start: 11-19-2024 inject 5000 [IU] by subcutaneous injection every eight hours 5,000 Units, subcutaneous, Every 8 hours, First dose on 11/19/24 at 0000, Phase II/On Unit hydroCHLOROthiazide 25 mg oral tablet (20 sources) Thiazide Diuretic Start: 04-07-2024 End: 11-23-2024 take 1 tablet by mouth once daily hydroCHLOROthiazide (HYDRODiuril) 25 mg tablet Indications: Essential hypertension TAKE 1 TABLET BY MOUTH ONCE DAILY 90 tablet 3 04/07/2024 11/23/2024 Discontinued (Therapy completed) Start: 07-07-2016 End: 06-14-2023 take 1 tablet by mouth once daily hydroCHLOROthiazide (HYDRODiuril) 25 mg tablet Indications: Essential hypertension TAKE 1 TABLET BY MOUTH ONCE DAILY 90 tablet 3 04/07/2024 Active multivitamin (Daily Multi-Vitamin) tablet (9 sources) take 1 tablet by kim th once daily multivitamin (Daily Multi-Vitamin) tablet Take 1 tablet by mouth once daily. Active take 1 tablet by mouth once hussein y multivitamin (Daily Multi-Vitamin) tablet Take 1 tablet by mouth once daily. 0 Active Multivitamin (Daily Multi-Vitamin) tablet (1 source) Start: 10-24-2024 take 1 tablet by mouth once daily Multivitamin (Daily Multi-Vitamin) tablet Active 1 TAB PO Daily October 24, 2024 12:00am ondansetron ODT (Zofran-ODT) disintegrating tablet 4 mg (1 source) Start: 11-17-2024 take 1 tablet by mouth every eight hours as needed ondansetron ODT (Zofran-ODT) disintegrating tablet 4 mg oxygen (O2) gas therapy (8 sources) take 1 dose by inhalation once daily as needed oxygen (O2) gas therapy Inhale 1 each once daily as needed. Active oxygen (O2) therapy (1 source) Start: 11-17-2024 inhalation, Continuous PRN - O2/gases, other, Starting on Wed11/17/24 at 1256, Phase II/On Unit, Wean oxygen therapy as tolerated., Device: Nasal Cannula, Rate in liters per minute: 2 LPM, Keep O2 Sat Above: 92% pantoprazole (1 source) Proton Pump Inhibitor Start: 11-18-2024 pantoprazole (ProtoNix) EC tablet 40 mg pravastatin sodium 40 mg oral tablet (20 sources) HMG-CoA Reductase Inhibitor Start: 10-24-2024 take 1 tablet by mouth once daily in the morning Pravastatin 40 mg tablet Active 40 MG PO Every morning October 24, 2024 12:00am Start: 04-27-2021 End: 11-16-2024 take 1 tablet by mouth once daily Pravastatin 40 mg tablet Discontinued 40 MG PO Daily December 03, 2023 12:00am June 08, 2024 1:40pm sertraline 100 mg oral tablet (20 sources) Serotonin Reuptake Inhibitor Start: 08-03-2024 take 1 tablet by mouth once daily Sertraline 100 mg tablet Active 0 .ROUTE .COMPLEX 90 August 03, 2024 8:05am TAKE 1 TABLET BY MOUTH DAILY Start: 06-08-2024 End: 08-03-2024 take 2 tablets by mouth once daily Sertraline 50 mg tablet Discontinued 100 MG PO Daily June 08, 2024 1:00am August 03, 2024 8:05am Start: 02-21-2024 End: 06-08-2024 take 1 tablet by mouth once daily Sertraline 50 mg tablet Discontinued 0 .ROUTE .COMPLEX 90 February 21, 2024 11:34am June 08, 2024 1:05pm TAKE 1 TABLET BY MOUTH DAILY Start: 11-20-2020 End: 06-08-2024 take 100 mg by mouth once daily 100 mg, oral, Daily, F irst dose on 11/18/24 at 0900 Start: 07-07-2016 End: 02-21-2024 take 1 tablet by mouth once daily sertraline (Zoloft) 50 mg tablet Take 1 tablet (50 mg) by mouth once daily. 11/20/2020 Active spironolactone 25 mg oral tablet (13 sources) Aldosterone Antagonist Start: 07-13-2023 End: 03-16-2024 take 1 tablet by mouth once daily spironolactone (Aldactone) 25 mg tablet Indications: Essential hypertension TAKE 1 TABLET BY MOUTH DAILY 90 tablet 3 07/13/2023 03/16/2024 Discontinued (Discontinued by another clinician) Start: 07-08-2022 take 1 tablet by kim once daily spironolactone (Aldactone) 25 mg tablet Take 1 tablet (25 mg) by mouth once daily. 0 09/18/2022 Active tadalafil 20 mg oral tablet (18 sources) Phosphodiesterase 5 Inhibitor Start: 12-06-2023 take 1 tablet by mouth every twenty-four hours Tadalafil 20 mg tablet Active 20 MG PO Daily as needed for sexual activity 01 15December 06, 2023 12:00am administer approximately 30min before sexual activity; do not use more than 1 dose per 24hrs Start: 12-03-2023 End: 12-06-2023 take 1 tablet by mouth once daily Tadalafil 5 mg tablet Discontinued 5 MG PO Daily December 03, 2023 12:00am December 06, 2023 11:47am Start: 12-01-2022 take 1 tablet by kim every twenty-four hours Tadalafil 5 MG 1 tablet as needed Orally Once a day November, Active temazepam 7.5 mg oral capsule (5 sources) Benzodiazepine Start: 06-08-2024 End: 10-24-2024 take 1 capsule by mouth once daily at bedtime as needed Temazepam 7.5 mg capsule Active 7.5 MG PO Daily at bedtime as needed for insomnia October 24, 2024 12:00am tiotropium (Spiriva Respimat) 2.5 mcg/actuation inhaler 2 puff (1 source) Start: 11-18-2024 tiotropium (Spiriva Respimat) 2.5 mcg/actuation inhaler 2 puff traMADol hydrochloride 50 mg oral tablet (1 source) Opioid Agonist Start: 11-17-2024 take 1 tablet by mouth every six hours as needed 50 mg, oral, Every 6 hours PRN, pain moderate (4-6), first line, Starting on Wed11/17/24 at 1256, Phase II/On Unit, If ordered PRN for pain, nurse is permitted to administer this medication for higher pain scores based on patient preference? Yes Trelegy Ellipta 100 mcg-62.5 mcg-25 mcg inhalation powder (1 source) Start: 01-08-2023 take 1 puff(s) by inhalation once daily Trelegy Ellipta 100 mcg-62.5 mcg-25 mcg inhalation powder = 1 puff(s), Inhalation, Daily, Refills(s) 0 Start Date: 01/08/23 Status: Ordered ubidecarenone 200 mg oral capsule (8 sources) Start: 03-16-2024 End: 03-16-2025 take 1 capsule by mouth once daily coenzyme Q-10 200 mg capsule Indications: 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 , Mixed hyperlipidemia Take 1 capsule (200 mg) by mouth once daily. 90 capsule 3 03/16/2024 03/16/2025 Active ubiquinol 100 mg oral capsule (2 sources) Start: 06-08-2024 Coq10 (Ubiquinol) (Qunol Deejay Coq10) 100 mg capsule Active 200 MG PO Daily June 08, 2024 1:00am Start: 06-08-2024 take 1 capsule by mo [facility] twice daily Coq10 (Ubiquinol) (Qunol Deejay Coq10) 100 mg capsule Active 100 MG PO Twice daily June 08, 2024 12:00am Completed/Discontinued Medications Medication Drug Class(es) Dates Sig (Normalized) Sig (Original) clindamycin 300 mg oral capsule (20 sources) Lincosamide Antibacterial Start: 11-06-2021 Clindamycin HCl - 300 MG Oral Capsule Quantity: 12 Refills: 0 Ordered: 06-Nov-2021 DO Start : 06-Nov-2021 Complete Start: 11-06-2021 End: 12-03-2023 take 2 capsules by mouth three times daily Clindamycin Hcl 300 mg capsule Discontinued 600 MG PO Three times daily 06 19November 06, 2021 12:00am December 03, 2023 8:14am Start: 11-06-2021 End: 12-03-2023 take 600 mg by mouth three times daily Clindamycin Hcl Discontinued 600 MG PO Three times daily 06 19November 06, 2021 12:00am December 03, 2023 8:14am 2 ml furosemide 10 mg/ml injection (2 sources) Loop Diuretic Start: 11-17-2024 End: 11-17-2024 take 20 mg intravenously once 20 mg, intravenous, Once, On Wed11/17/24 at 1845, For 1 dose, For doses less than or = 160 mg, give IV push at maximum rate of 40 mg/min For doses greater than 160 mg, dilute in 50 mL and administer at 4 mg/min Start: 11-17-2024 End: 11-17-2024 40 mg, intravenous, Once, On Wed11/17/24 at 1315, For 1 dose, Phase II/On Unit, To be given when pt arrives to the nursing floor iohexol (OMNIPaque) 350 mg iodine/mL solution 100 mL (1 source) Start: 11-09-2024 End: 11-09-2024 100 mL, intravenous, Once in imaging, Starting on Vanna 11/09/24 at 0955, For 1 dose lisinopril 10 mg oral tablet (20 sources) Angiotensin Converting Enzyme Inhibitor Start: 03-16-2024 End: 03-16-2025 take 1 tablet by mouth once daily lisinopril 10 mg tablet Indications: Essential hypertension Take 1 tablet (10 mg) by mouth once daily. 90 tablet 3 03/16/2024 10/18/2024 Discontinued (Duplicate order) Start: 07-07-2016 End: 06-08-2024 take 1 tablet by mouth once daily Lisinopril 30 mg tablet Discontinued 30 MG PO Daily October 29, 2021 12:00am June 08, 2024 1:05pm metoprolol tartrate 50 mg oral tablet (20 sources) beta-Adrenergic Niecy Start: 12-03-2023 End: 06-08-2024 take 1 tablet by mouth once daily Metoprolol Tartrate 50 mg tablet Discontinued 50 MG PO Daily December 03, 2023 12:00am June 08, 2024 1:40pm Start: 04-09-2021 Metoprolol Tar trate 50 MG Oral Tablet Quantity: 180 Refills: 0 Ordered: 11-Apr-2021 DO Start : 09-Apr-2021 Complete Metoprolol Tartr ate 50 MG (Prior Auth#:[id number]) Oral Active Multi Vitamin Daily Oral Tablet (20 sources) take 1 tablet by mouth once daily Multi Vitamin Daily Oral Tablet TAKE 1 TABLET DAILY. Quantity: 0 Refills: 0 Ordered: 24-Oct-2021 DO Active Multi Vitamin Daily TABS (3 sources) Multi Vitamin Da radha TABS TAKE 1 TABLET DAILY. Quantity: 0 Refills: 0 Ordered: 24-Oct-2021 DO Active perflutren lipid microspheres (Definity) injection 0.5-10 mL of dilution (2 sources) Start: 11-17-2024 End: 11-18-2024 0.5-10 mL of dilution, intravenous, Once in imaging, Starting on Wed11/17/24 at 1256, For 1 dose, CV Medications, Contrast - for use by imaging provider only. Prior to administration, Definity product must be activated. First, bring vial to room temperature. Then, shake vial for 45 seconds. Do not use if the 45 second activation cycle has not been completed. Following activation, the product will appear as a milky white suspension and may be used immediately. If not used within 5 minutes of activation, re-suspend by inverting and shaking the vial for 10 seconds. Discard unused product. Administration: Dilute 1.3 mL of activated DEFINITY with 8.7 mL of normal saline in a 10 mL syringe. Inject 0.5 mL of diluted DEFINITY when notified the images/film are unclear to enhance view of Left Ventricular borders. Repeat 0.5 mL of DEFINITY until clear images are obtained, not to exceed 10 mLs. Once images are obtained or limit of medication is reached, flush line with 10 mL of Normal Saline. Start: 11-17-2024 Trelegy Ellipta AEPB (17 sources) Trelegy Ellipta AEPB As directed. Quantity: 0 Refills: 0 Ordered: 06-Apr-2022 DO Active Problems Active Problems Problem Classification Problem Date Documented Da te Episodic/Chronic Acute bronchitis (2 sources) Acute bronchitis; Translations: [Acute bronchitis, unspecified] Episodic Anxiety disorders (2 sources) Generalized anxiety disorder; Translations: [Generalized anxiety disorder] 06-08-2024 Chronic Asthma (6 sources) Uncomplicated mild persistent asthma; Translations: [Mild persistent asthma, uncomplicated] Chronic Cardiac dysrhythmias (20 sources) Sick sinus syndrome; Translations: [Sinoatrial node dysfunction] Onset: 06-09-2023 01-08-2023 Chronic Chronic obstructive pulmonary disease and bronchiectasis (20 sources) Pulmonary emphysema; Translations: [Other emphysema] Onset: 04-08-2018 Chronic Conduction disorders (20 sources) H/O: cardiac pacemaker in situ; Translations: [Cardiac pacemaker in situ] Onset: 04-06-2018 06-14-2023 Chronic Congestive heart failure; nonhypertensive (2 sources) Acute on chronic combined systolic (congestive) and diastolic (congestive) heart failure; Translations: [Acute on chronic combined systolic (congestive) and diastolic (congestive) heart failure] Onset: 11-17-2024 Chronic Coronary atherosclerosis and other heart disease (20 sources) Angina pectoris; Translations: [Other and unspecified angina pectoris] Onset: 04-06-2018 Chronic Deficiency and other anemia (4 sources) Anemia; Translations: [Anemia, unspecified] 12-06-2023 Episodic [...] 07-06-2022 Chronic Genitourinary symptoms and ill-defined conditions (9 sources) Polyuria; Translations: [Other polyuria] Onset: 11-08-2018 Episodic Heart valve disorders (20 sources) Aortic valve stenosis; Translations: [Aortic valve disorders] Onset: 08-12-2022 Resolved: 11-18-2024 01-08-2023 Chronic Hyperplasia of prostate (19 sources) Nocturia due to benign prostatic hypertrophy; Translations: [Benign prostatic hyperplasia with lower urinary tract symptoms] Onset: 11-08-2018 01-08-2023 Chronic Immunizations and screening for infectious disease (16 sources) Patient encounter status; Translations: [Other specified [...] Long-term current use of inhaled steroid; Translations: [retirement (current) use of inhaled steroids] Episodic Other aftercare (10 sources) Long-term current use of anticoagulant; Translations: [retirement (current) use of anticoagulants] Onset: 03-16-2024 03-16-2024 Episodic Other and unspecified benign neoplasm (2 [...] Onset: 08-10-2022 Episodic Other lower respiratory disease (11 sources) Nodule of lung; Translations: [Solitary pulmonary nodule] 01-08-2023 Episodic Comment on above: LDCT: RLL 8.3mm nodu le TR08/2024 Other lower respiratory disease (6 sources) Solitary [...] more but less than 30; Translations: [Overweight] Onset: 06-14-2023 01-13-2023 Episodic Other nutritional; endocrine; and metabolic disorders (2 sources) Body mass index (BMI) 25.0-25.9, adult; Translations: [Body mass index (BMI) 25.0-25.9, adult] Onset: 10-18-2024 Episodic Other screening for suspected conditions (not mental disorders or infectious disease) (2 sources) Screening for malignant neoplasm of respiratory tract; Translations: [Encounter for screening for malignant neoplasm of respiratory organs] Episodic Pulmonary heart disease (1 source) Pulmonary hypertension; Translations: [Pulmonary hypertension, unspecified] 10-18-2024 Chronic Residual codes; unclassified (18 sources) Obstructive sleep apnea syndrome; Translations: [Obstructive [...] of patient's decision for unspecified reasons] Episodic Residual codes; unclassified (2 sources) Insomnia; Translations: [Insomnia, unspecified] 06-08-2024 Episodic Respiratory failure; insufficiency; arrest (adult) (3 sources) Chronic respiratory failure; Translations: [Chronic respiratory failure with hypoxia] 10-18-2024 Chronic Respiratory failure; insufficiency; arrest (adult) (2 sources) Acute hypoxemic respiratory failure; Translations: [Acute respiratory failure with hypoxia] Episodic Substance-related disorders (10 sources) Nicotine dependence, cigarettes, with unspecified nicotine-induced disorders; Translations: [Mental disorder due to drug] Onset: 02-02-2022 Chronic Unclassified (6 sources) History of disease caused by Severe acute respiratory syndrome coronavirus 2 (situation); Translations: [Personal history of COVID-19] Unclassified (2 sources) Severe aortic stenosis 10-18-2024 Unclassified (2 sources) Chronic atrial fibrillation, unspecified; Translations: [Chronic atrial fibrillation, unspecified (Multi)] Onset: 03-16-2024 Past or Other Problems Problem Classification Problem Date Documented Date Episodic/Chronic Cardiac dysrhythmias (2 sources) Bradycardia; Translations: [Bradycardia, unspecified] Onset: 04-06-2018 Episodic Nonspecific chest pain (16 sources) Chest pain; Translations: [Chest pain, unspecified] Onset: 06-09-2023 06-09-2023 Episodic Other aftercare (2 sources) [employer] (current) use of anticoagulants; 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] Onset: 03-16-2024 Episodic Other circulatory disease (20 sources) Carotid bruit; Translations: [Other symptoms involving cardiovascular system] Onset: 06-09-2023 01-08-2023 Episodic Other lower respiratory disease (20 sources) Difficulty breathing; Translations: [Other respiratory abnormalities] Onset: 06-09-2023 06-09-2023 Episodic Other nutritional; endocrine; and metabolic disorders (4 sources) Overweight; Translations: [Overweight] Onset: 03-16-2024 01-13-2023 Episodic Other nutritional; endocrine; and metabolic disorders (5 sources) Body mass index 25-29 - overweight; Translations: [Overweight] Onset: 06-14-2023 06-14-2023 Episodic Other nutritional; endocrine; and metabolic disorders (1 source) Overweight; Translations: [Overweight] Onset: 06-14-2023 Episodic Residual codes; unclassified (2 sources) [...] Unclassified (1 source) Permanent atrial fibrillation Unclassified (9 sources) Onset: 06-14-2023 Resolved: 11-23-2024 06-14-2023 Results Test Name Value Interpretation Reference Range Facility [facility] 11-24-2024 Anion gap [Moles/Vol] 9 mmol/L Normal 6-16 [facility] Comment on above: Performed By: #### 2 [id number] #### [facility] [address] [place] [address] Calcium [Mass/Vol] 9.3 mg/dL Normal 8.9-11.1 [facility] Comment on above: Performed By: #### 2 [id number] #### [facility] [address] [place] [address] Chloride [Moles/Vol] 105 mmol/L Normal 101-111 [facility] Comment on above: Performed By: #### 2 [id number] #### [facility] [address] [place] [address] CO2 [Moles/Vol] 29 mmol/L Normal 21-31 [facility] Comment on above: Performed By: #### 2 [id number] #### [facility] [address] [place] [address] Creatinine [Mass/Vol] 0.8 mg/dL Normal 0.5-1.3 [facility] Comment on above: Performed By: #### 2 [id number] #### [facility] [address] [place] [address] Glucose [Mass/Vol] 100 mg/dL Normal 55-199 [facility] Comment on above: Performed By: #### 2 [id number] #### [facility] [address] [place] [address] Potassium [Moles/Vol] 3.4 mmol/L Low 3.5-5.3 [facility] Comment on above: Performed By: #### 2 261730 #### [facility] [address] [place] [address] Sodium [Moles/Vol] 140 mmol/L Normal 135-145 [facility] Comment on above: Performed By: #### 2 729052 #### [facility] [address] [place] [address] Urea nitrogen [Mass/Vol] 16 mg/dL Normal 5-21 [facility] Comment on above: Performed By: #### 2 991105 #### [facility] [address] [place] [address] Urea nitrogen/Creatinine [Mass ratio] 20 No Units Normal 10-20 [facility] Comment on above: Performed By: #### 2 [id number] #### [facility] [address] [place] [address] CBC w/ Auto Diffon 5 Basophils/100 WBC (Bld) 0.4 % Normal 0.0-2.0 [facility] Comment on above: Performed By: #### 2 900596 #### [facility] [address] [place] [address] Basophils/Leukocytes Auto (Bld) [Pure # fraction] 0.0 E9/L Normal 0.0-0.2 [facility] Comment on above: Performed By: #### 2 057293 #### [facility] [address] [place] [address] Eosinophils (Bld) [#/Vol] 0.2 E9/L Normal 0.0-0.5 [facility] Comment on above: Performed By: #### 2 639708 #### [facility] [address] [place] [address] Eosinophils/100 WBC (Bld) 2.7 % Normal 0.0-8.0 [facility] Comment on above: Performed By: #### 2 [id number] #### [facility] [address] [place] [address] Erythrocyte distribution width (RBC) [Ratio] 16.8 % High 10.9-14.2 [facility] Comment on above: Performed By: #### 2 026638 #### [facility] [address] [place] [address] Hematocrit (Bld) [Volume fraction] 36.6 % Low 37.7-49.0 [facility] Comment on above: Performed By: #### 2 [id number] #### [facility] [address] [place] [address] Hemoglobin (Bld) [Mass/Vol] 12.9 g/dL Low 13.5-17.5 [facility] Comment on above: Performed By: #### 2 545719 #### [facility] [address] [place] [address] Lymphocytes (Bld) [#/Vol] 1.0 E9/L Normal 1.0-4.0 [facility] Comment on above: Performed By: #### 2 488866 #### [facility] [address] [place] [address] Lymphocytes/100 WBC (Bld) 13.7 % Low 14.0-50.0 [facility] Comment on above: Performed By: #### 2 855436 #### [facility] [address] [place] [address] MCH (RBC) [Entitic mass] 32.2 pg Normal 27.0-34.0 [facility] Comment on above: Performed By: #### 2 067624 #### [facility] [address] [place] [address] MCHC (RBC) [Mass/Vol] 35.1 g/dL Normal 31.4-36.0 [facility] Comment on above: Performed By: #### 2 386676 #### [facility] [address] [place] [address] MCV (RBC) [Entitic vol] 91.7 fL Normal 80.0-100.0 [facility] Comment on above: Performed By: #### 2 977128 #### [facility] [address] [place] [address] Monocytes (Bld) [#/Vol] 0.5 E9/L Normal 0.2-1.0 [facility] Comment on above: Performed By: #### 2 759877 #### [facility] [address] [place] [address] Neutrophils (Bld) [#/Vol] 5.8 E9/L Normal 2.0-7.5 [facility] Comment on above: Performed By: #### 2 776683 #### [facility] [address] [place] [address] Neutrophils/100 WBC (Bld) 76.8 % High 36.0-75.0 [facility] Comment on above: Performed By: #### 2 169892 #### [facility] [address] [place] [address] Platelet 161.0 E9/L Normal 150.0-500. 0 [facility] Comment on above: Performed By: #### 2 420235 #### [facility] [address] [place] [address] Platelet mean volume (Bld) [Entitic vol] 9.5 fL Normal 6.4-10.8 [facility] Comment on above: Performed By: #### 2 692368 #### [facility] [address] [place] [address] RBC (Bld) [#/Vol] 4.0 E12/L Low 4.3-5.9 [facility] Comment on above: Performed By: #### 2 562594 #### [facility] [address] [place] [address] WBC corrected for nucl RBC Auto (Bld) [#/Vol] 7.5 E9/L Normal 4.0-11.0 [facility] Comment on above: Performed By: #### 2 [id number] #### [facility] [address] [place] [address] eGFRon 11-24-2024 eGFR 91 mL/min/1.73 m2 Normal >=59 [facility] Comment on above: Performed By: #### 1 [id number] #### [facility] [address] [place] [address] Bacteria identifiedon 2024 Bacteria identified Cx Nom (U) Test: Urine Culture Specimen Source: Indwelling (Reinoso) Catheter Specimen Type: Urine Specimen Date: 11/19/20241712 Result Date: 11/21/2024809 Result Status: Final result Abnormal: No Resulting Lab: [facility] [address] [place] [address] CULTURE No growth Normal [facility] Comment on above: Performed By: #### 3 184-9 #### LUCRECIA Weiss ([id number]) [facility] ([facility]) [address] [place] [address] Basic metabolic 2000 panelon 11-19-2024 Anion gap [Moles/Vol] 14 mmol/L 10 - 2 0 mmol/L [facility] Calcium [Mass/Vol] 8.5 mg/dL Low 8.6 - 10. 6 mg/dL [facility] Chloride [Moles/Vol] 109 mmol/L High 98 - 10 7 mmol/L [facility] CO2 [Moles/Vol] 25 mmol/L 21 - 32 mmol/L [facility] Creatinine [Mass/Vol] 0.86 mg/dL 0.50 - 1.30 mg/dL [facility] GFR/1.73 sq M.predicted among non-blacks MDRD (S/P/Bld) [Vol rate/Area] 89 mL/min/{1.73_m2} - PINF [facility] Comment on above: Calculations of zack mated GFR are performed using the 2020 CKD-EPI Study Refit equation without the race variable for the IDMS-Traceable creatinine methods. https://jasn.asnjournals.org/content//ASN.12663 84071 Glucose [Mass/Vol] 94 mg/dL 74 - 99 mg/dL [facility] Interpretation and review of laboratory results Abnormal [facility] Potassium [Moles/Vol] 3.5 mmol/L 3.5 - 5.3 mmol/L [facility] Sodium [Moles/Vol] 144 mmol/L 136 - 145 mmol/L [facility] Urea nitrogen [Mass/Vol] 21 mg/dL 6 - 23 mg/dL [facility] Anion gap [Moles/Vol] 14 mmol/L Normal 10-20 [facility] Comment on above: Performed By: #### 3 184-9 #### LUCRECIA MORTON L ([id number]) [facility] ([facility]) [address] [place] [address] Calcium [Mass/Vol] 8.5 mg/dL Low 8.6-10.6 [facility] Comment on above: Performed By: #### 3 184-9 #### LUCRECIA MORTON L ([id number]) [facility] ([facility]) [address] [place] [address] Chloride [Moles/Vol] 109 mmol/L High 98-107 [facility] Comment on above: Performed By: #### 3 184-9 #### LUCRECIA ROQUEMODEEDEEER L ([id number]) [facility] ([facility]) [address] [place] [address] CO2 [Moles/Vol] 25 mmol/L Normal 21-32 [facility] Comment on above: Performed By: #### 3 184-9 #### LUCRECIA MORTON L ([id number]) [facility] ([facility]) [address] [place] [address] Creatinine [Mass/Vol] 0.86 mg/dL Normal 0.50-1.30 [facility] Comment on above: Performed By: #### 3 184-9 #### LUCRECIA MORTON L ([id number]) [facility] ([facility]) [id number] [place] [address] Glomerular filtration rate/1.73 sq M.predicted 89 mL/min/1.73m*2 Normal >60 [facility] Comment on above: Result Comment: Calc ulations of estimated GFR are performed using the 2020 CKD-EPI Study Refit equation without the race variable for the IDMS-Traceable creatinine methods. https://jasn.asnjournals.org/content/early//ASN.36004 91329 Performed By: #### 3 184-9 #### LUCRECIA MORTON L ([id number]) [facility] ([facility]) [address] [place] [address] Glucose [Mass/Vol] 94 mg/dL Normal 74-99 [facility] Comment on above: Performed By: #### 3 184-9 #### LUCRECIA MORTON L ([id number]) [facility] ([facility]) [address] [place] [address] Potassium [Moles/Vol] 3.5 mmol/L Normal 3.5-5.3 [facility] Comment on above: Performed By: #### 3 184-9 #### LUCRECIA ROQUEMOTZER L ([id number]) [facility] ([facility]) [address] [place] [address] Sodium [Moles/Vol] 144 mmol/L Normal 136-145 [facility] Comment on above: Performed By: #### 3 184-9 #### LUCRECIA ROQUEMOTZER L ([id number]) [facility] ([facility]) [address] [place] [address] Urea nitrogen [Mass/Vol] 21 mg/dL Normal 6-23 [facility] Comment on above: Performed By: #### 3 184-9 #### LUCRECIA ARAMBULATZER L ([id number]) [facility] ([facility]) [address] [place] [address] CBC W Auto Differential pane l (Bld)on 11-19-2024 Basophils (Bld) [#/Vol] 0.03 10*3/uL [facility] Basophils/100 WBC (Bld) 0.3 % 0.0 - 2.0 % [facility] Eosinophils (Bld) [#/Vol] 0.14 10*3/uL [facility] Eosinophils/100 WBC (Bld) 1.4 % 0.0 - 6.0 % [facility] Erythrocyte distribution width (RBC) [Ratio] 15.9 % High 11.5 - 14.5 % [facility] Hematocrit (Bld) [Volume fraction] 40.4 % Low 41.0 - 52.0 % [facility] Hemoglobin (Bld) [Mass/Vol] 12.4 g/dL Low 13.5 - 17.5 g/dL [facility] Immature granulocytes (Bld) [#/Vol] 0.04 10*3/uL [facility] Immature granulocytes/100 WBC (Bld) 0.4 % 0.0 - 0.9 % [facility] Comment on above: Immature Granulocyte Count (IG) includes promyelocytes, myelocytes and metamyelocytes but does not include bands. Percent differential counts (%) should be interpreted in the context of the absolute cell counts (cells/UL). Interpretation and review of laboratory results Abnormal [facility] Lymphocytes (Bld) [#/Vol] 1.26 10*3/uL [facility] Lymphocytes/100 WBC (Bld) 12.4 % 13.0 - 44.0 % [facility] MCH (RBC) [Entitic mass] 30.8 pg 26.0 - 34.0 pg [facility] MCHC (RBC) [Mass/Vol] 30.7 g/dL Low 32.0 - 36.0 g/dL [facility] MCV (RBC) [Entitic vol] 101 fL High 80 - 100 fL [facility] Monocytes (Bld) [#/Vol] 0.81 10*3/uL High [facility] Monocytes/100 WBC (Bld) 8 % 2.0 - 10.0 % [facility] Neutrophils (Bld) [#/Vol] 7.87 10*3/uL High [facility] Comment on above: Percent differential counts (%) should be interpreted in the context of the absolute cell counts (cells/uL). Neutrophils/100 WBC (Bld) 77.5 % 40.0 - 80.0 % [facility] Nucleated RBC/100 WBC (Bld) [Ratio] 0 % [facility] Platelets (Bld) [#/Vol] 111 10*3/uL Low [facility] RBC (Bld) [#/Vol] 4.02 10*6/uL Low [facility] WBC (Bld) [#/Vol] 10.2 10*3/uL [facility] Basophils (Bld) [#/Vol] 0.03 x10*3/uL Normal 0.00-0.10 [facility] Comment on above: Performed By: #### 3 4532-2 #### LUCRECIA Weiss ([id number]) [facility] ([facility]) [address] [place] [address] Basophils/100 WBC (Bld) 0.3 % Normal 0.0-2.0 [facility] Comment on above: Performed By: #### 3 4532-2 #### LUCRECIA Weiss ([id number]) [facility] ([facility]) [address] [place] [address] Eosinophils (Bld) [#/Vol] 0.14 x10*3/uL Normal 0.00-0.40 [facility] Comment on above: Performed By: #### 3 4532-2 #### LUCRECIA Weiss ([id number]) [facility] ([facility]) [address] [place] [address] Eosinophils/100 WBC (Bld) 1.4 % Normal 0.0-6.0 [facility] Comment on above: Performed By: #### 3 4532-2 #### LUCRECIA Weiss ([id number]) [facility] ([facility]) [address] [place] [address] Erythrocyte distribution width (RBC) [Ratio] 15.9 % High 11.5-14.5 [facility] Comment on above: Performed By: #### 3 4531-2 #### LUCRECIA Weiss ([id number]) [facility] ([facility]) [address] [place] [address] Hematocrit (Bld) [Volume fraction] 40.4 % Low 41.0-52.0 [facility] Comment on above: Performed By: #### 3 4531-2 #### LUCRECIA Weiss ([id number]) [facility] ([facility]) [address] [place] [address] Hemoglobin (Bld) [Mass/Vol] 12.4 g/dL Low 13.5-17.5 [facility] Comment on above: Performed By: #### 3 4531-2 #### LUCRECIA Weiss ([id number]) [facility] ([facility]) [address] [place] [address] Immature granulocytes (Bld) [#/Vol] 0.04 x10*3/uL Normal 0.00-0.50 [facility] Comment on above: Performed By: #### 3 4531-2 #### LUCRECIA Weiss ([id number]) [facility] ([facility]) [address] [place] [address] Immature granulocytes/100 WBC (Bld) 0.4 % Normal 0.0-0.9 [facility] Comment on above: Result Comment: Vero ture Granulocyte Count (IG) includes promyelocytes, myelocytes and metamyelocytes but does not include bands. Percent differential counts (%) should be interpreted in the context of the absolute cell counts (cells/UL). Performed By: #### 3 4531-2 #### LUCRECIA Weiss ([id number]) [facility] ([facility]) [address] [place] [address] Lymphocytes (Bld) [#/Vol] 1.26 x10*3/uL Normal 0.80-3.00 [facility] Comment on above: Performed By: #### 3 4531-2 #### LUCRECIA Weiss ([id number]) [facility] ([facility]) [address] [place] [address] Lymphocytes/100 WBC (Bld) 12.4 % Normal 13.0-44.0 [facility] Comment on above: Performed By: #### 3 453-2 #### LUCRECIA Weiss ([id number]) [facility] ([facility]) [address] [place] [address] MCH (RBC) [Entitic mass] 30.8 pg Normal 26.0-34.0 [facility] Comment on above: Performed By: #### 3 4531-2 #### LUCRECIA Weiss ([id number]) [facility] ([facility]) [address] [place] [address] MCHC (RBC) [Mass/Vol] 30.7 g/dL Low 32.0-36.0 [facility] Comment on above: Performed By: #### 3 4531-2 #### LUCRECIA Weiss ([id number]) [facility] ([facility]) [address] [place] [address] MCV (RBC) [Entitic vol] 101 fL High 80-100 [facility] Comment on above: Performed By: #### 3 4531-2 #### LUCRECIA Weiss ([id number]) [facility] ([facility]) [address] [place] [address] Monocytes (Bld) [#/Vol] 0.81 x10*3/uL High 0.05-0.80 [facility] Comment on above: Performed By: #### 3 453-2 #### LUCRECIA Weiss ([id number]) [facility] ([facility]) [address] [place] [address] Monocytes/100 WBC (Bld) 8.0 % Normal 2.0-10.0 [facility] Comment on above: Performed By: #### 3 453-2 #### LUCRECIA Weiss ([id number]) [facility] ([facility]) [address] [place] [address] Neutrophils (Bld) [#/Vol] 7.87 x10*3/uL High 1.60-5.50 [facility] Comment on above: Result Comment: Perc ent differential counts (%) should be interpreted in the context of the absolute cell counts (cells/uL). Performed By: #### 3 4532-2 #### LUCRECIA Weiss ([id number]) [facility] ([facility]) [address] [place] [address] Neutrophils/100 WBC (Bld) 77.5 % Normal 40.0-80.0 [facility] Comment on above: Performed By: #### 3 4531-2 #### LUCRECIA Wiess ([id number]) [facility] ([facility]) [address] [place] [address] Nucleated RBC/100 WBC (Bld) [Ratio] 0.0 /100 WBCs Normal 0.0-0.0 [facility] Comment on above: Performed By: #### 3 4531-2 #### LUCRECIA Weiss ([id number]) [facility] ([facility]) [address] [place] [address] Platelets (Bld) [#/Vol] 111 x10*3/uL Low 150-450 [facility] Comment on above: Performed By: #### 3 4531-2 #### LUCRECIA Weiss ([id number]) [facility] ([facility]) [address] [place] [address] RBC (Bld) [#/Vol] 4.02 x10*6/uL Low 4.50-5.90 [facility] Comment on above: Performed By: #### 3 4531-2 #### LUCRECIA Weiss ([id number]) [facility] ([facility]) [address] [place] [address] WBC (Bld) [#/Vol] 10.2 x10*3/uL Normal 4.4-11.3 [facility] Comment on above: Performed By: #### 3 4531-2 #### LUCRECIA Weiss ([id number]) [facility] ([facility]) [id number] [place] [address] Coagulation tissue factor in ducedon 11-19-2024 PT Coag (PPP) [Time] 13.5 s High 9.8-12.4 [facility] Comment on above: Performed By: #### 3 4532-2 #### LUCRECIA Weiss ([id number]) [facility] ([facility]) [address] [place], [place] [id number] ECG 12-LEADon 11-19-2024 ECG 12-LEAD Ventricular Rate 70 Atrial Rate 46 QRS Duration 158 Q-T Interval 460 QTC Calculation(Bazett) 496 R Ponderosa -83 T Ponderosa 93 QRS Count 11 Q Onset 203 T Offset 433 QTC Fredericia 484 Diagnosis Ventricular-paced rhythm Abnormal ECG When compared with ECG of 19-NOV-2024 06:03, No significant change was found Normal [facility] Magnesiumon 11-19-2024 Magnesium [Mass/Vol] 2.31 mg/dL 1.60 - 2.40 mg/dL [facility] Magnesium [Mass/Vol] 2.31 mg/dL Normal 1.60-2.40 [facility] Comment on above: Performed By: #### 3 184-9 #### LUCRECIA Weiss ([id number]) [facility] ([facility]) [address] [place] [address]10 Magnesium [Mass/Vol]on 11-19 Interpretation and review of laboratory results Normal [facility] No Panel Informationon 11-19 Interpretation and review of laboratory results Abnormal [facility] PT Coag (PPP) [Time]on 11-19 INR Coag (PPP) [Relative time] 1.2 {INR} High 0.9 - 1.1 [facility] Interpretation and review of laboratory results Abnormal [facility] INR Coag (PPP) [Relative time] 1.2 High 0.9-1.1 [facility] Comment on above: Performed By: #### 3 4532-2 #### LUCRECIA Weiss ([id number]) [facility] ([facility]) [id number] [place] [address]296 Protime-INRon 11-19-2024 PT Coag (PPP) [Time] 13.5 s High [facility] Urinalysis complete W Reflex Culture panel (U)on 11-19-2024 Appearance (U) Ex.Turbid Abnormal Clear [facility] Bilirubin (U) [Mass/Vol] Negative NEGATIVE mg/dL [facility] Color (U) Dark-Brown Abnormal Light-[place] ow, Yellow, Dark-Yello w [facility] Glucose Auto test strip (U) [Mass/Vol] Normal Normal mg/dL [facility] Ketones (U) [Mass/Vol] Negative NEGAT GEOVANY mg/dL [facility] Leukocyte esterase Auto test strip Ql (U) 75 Rigo/uL Abnormal NEGATIVE [facility] Nitrite Auto test strip Ql (U) Negative NEGATIVE [facility] pH (U) 6 [pH] 5.0, 5.5, 6.0, 6.5, 7.0, 7.5, 8.0 [facility] Protein (U) [Mass/Vol] 200 (2+) Abnormal NEGAT GEOVANY, 10 (TRACE), 20 (TRACE) mg/dL [facility] RBC (U) [#/Vol] OVER (3+) Abnormal NEGATIVE mg/dL [facility] Specific gravity (U) [Rel density] 1.028 1.005 - 1.035 [facility] Urobilinogen (U) [Mass/Vol] Normal Normal mg/dL [facility] OVER is reported whe n the result is greater than the clinically reportable range. [facility] Appearance (U) Ex.Turbid Normal Clear [facility] Comment on above: Order Comment: OVER is reported when the result is greater than the clinically reportable range. Performed By: #### 3 184-9 #### LUCRECIA Weiss ([id number]) [facility] ([facility]) [address] [place] [address] Bilirubin (U) [Mass/Vol] Negative Normal NEGATIVE [facility] Comment on above: Order Comment: OVER is reported when the result is greater than the clinically reportable range. Performed By: #### 3 184-9 #### LUCRECIA ARAMBULATZER L ([id number]) [facility] ([facility]) [address] [place] [address] Color (U) Dark-Brown Normal Light-[place] ow, Yellow, Dark-Yello w [facility] Comment on above: Order Comment: OVER is reported when the result is greater than the clinically reportable range. Performed By: #### 3 184-9 #### LUCRECIA SCHMOTZER L ([id number]) [facility] ([facility]) [address] [place] [address] 98477 Glucose Auto test strip (U) [Mass/Vol] Normal Normal Normal [facility] Comment on above: Order Comment: OVER is reported when the result is greater than the clinically reportable range. Performed By: #### 3 184-9 #### LUCRECIA SCHMOTZER L ([id number]) [facility] ([facility]) [address] [place] [address]808 Ketones (U) [Mass/Vol] Negative Normal NEGATIVE [facility] Comment on above: Order Comment: OVER is reported when the result is greater than the clinically reportable range. Performed By: #### 3 184-9 #### LUCRECIA ROQUEMOTZER L ([id number]) [facility] ([facility]) [address] [place] [address]1986 Leukocyte esterase Auto test strip Ql (U) 75 Rigo/uL Abnormal NEGATIVE [facility] Comment on above: Order Comment: OVER is reported when the result is greater than the clinically reportable range. Performed By: #### 3 184-9 #### LUCRECIA SCHMOTZER L ([id number]) [facility] ([facility]) [address] [place] [address]771 Nitrite Auto test strip Ql (U) Negative Normal NEGATIVE [facility] Comment on above: Order Comment: OVER is reported when the result is greater than the clinically reportable range. Performed By: #### 3 184-9 #### LUCRECIA SCHMOTZER L ([id number]) [facility] ([facility]) [address] [place] [address] 66528 pH (U) 6.0 [pH] Normal 5.0, 5.5, 6.0, 6.5, 7.0, 7.5, 8.0 [facility] Comment on above: Order Comment: OVER is reported when the result is greater than the clinically reportable range. Performed By: #### 3 184-9 #### LUCRECIA Weiss ([id number]) [facility] ([facility]) [address] [place] [address] 63267 Protein (U) [Mass/Vol] 200 (2+) Abnormal NEGAT GEOVANY, 10 (TRACE), 20 (TRACE) [facility] Comment on above: Order Comment: OVER is reported when the result is greater than the clinically reportable range. Performed By: #### 3 184-9 #### LUCRECIA Weiss ([id number]) [facility] ([facility]) [address] [place] [address] 77958 RBC (U) [#/Vol] OVER (3+) Abnormal NEGATIVE [facility] Comment on above: Order Comment: OVER is reported when the result is greater than the clinically reportable range. Performed By: #### 3 184-9 #### LUCRECIA Weiss ([id number]) [facility] ([facility]) [address] [place] [address] 71268 Specific gravity (U) [Rel density] 1.028 Normal 1.005-1.03 5 [facility] Comment on above: Order Comment: OVER is reported when the result is greater than the clinically reportable range. Performed By: #### 3 184-9 #### LUCRECIA Weiss ([id number]) [facility] ([facility]) [address] [place] [address] 15681 Urobilinogen (U) [Mass/Vol] Normal Normal Normal [facility] Comment on above: Order Comment: OVER is reported when the result is greater than the clinically reportable range. Performed By: #### 3 184-9 #### LUCRECIA Weiss ([id number]) [facility] ([facility]) [address] [place] [address] Urinalysis microscopic panel Auto Ql (U)on 11-19-2024 RBC Auto (Urine sed) [#/Area] >20 Abnormal NONE, 1-2, 3-5 /HPF [facility] WBC Auto (Urine sed) [#/Area] 21-50 Abnormal 1-5, NONE /HPF [facility] RBC Auto (Urine sed) [#/Area] >20 Abnormal NONE, 1-2, 3-5 [facility] Comment on above: Performed By: #### 3 184-9 #### LUCRECIA Weiss ([id number]) [facility] ([facility]) [id number] [place] [address] 75703 WBC Auto (Urine sed) [#/Area] 21-50 Abnormal 1-5, NONE [facility] Comment on above: Performed By: #### 3 184-9 #### LUCRECIA Weiss ([id number]) [facility] ([facility]) [address] [place], [place] [id number] XR CHEST 1 VIEWon 11-19-2024 XR CHEST 1 VIEW Interpreted By: Karlo Larios, STUDY: XR CHEST 1 VIEW; 11/19/2024 4:47 am INDICATION: Signs/Symptoms:s/p valve procedure. COMPARISON: Exam dated 11/18/2024 ACCESSION NUMBER(S): [id number] ORDERING CLINICIAN: AMANDA WARD FINDINGS: AP radiograph of the chest was provided. Left chest wall pacer device and leads are in similar position. Status post TAVR. CARDIOMEDIASTINAL SILHOUETTE: Cardiomediastinal silhouette is stable in size and configuration. LUNGS: Interval increase in left basilar opacity with blunting of the left costophrenic angle. Diffusely increased interstitial opacities are also noted. No pneumothorax. ABDOMEN: No remarkable upper abdominal findings. BONES: No acute osseous changes. IMPRESSION: 1. Interval increase in diffuse interstitial opacities which are suggestive of pulmonary edema. 2. New small left pleural effusion with increasing left basilar opacities. These may represent atelectasis though correlate with concern for interval aspiration. MACRO: None Signed by: Karlo Moreno 11/19/2024 10:52 AM Dictation workstation: [id number] [facility] XR Chest Single viewon 11-19 1. Interval increase in diffuse interstitial opacities which are suggestive of pulmonary edema. 2. New small left pleural effusion with increasing left basilar opacities. These may represent atelectasis though correlate with concern for interval aspiration. MACRO: None Signed by: Karlo Moreno 11/19/2024 10:52 AM Dictation workstation: [id number] [facility] Interpreted By: Karlo Larios, STUDY: XR CHEST 1 VIEW; 11/19/2024 4:47 am INDICATION: Signs/Symptoms:s/p valve procedure. COMPARISON: Exam dated 11/18/2024 ACCESSION NUMBER(S): [id number] ORDERING CLINICIAN: AMANDA WARD FINDINGS: AP radiograph of the chest was provided. Left chest wall pacer device and leads are in similar position. Status post TAVR. CARDIOMEDIASTINAL SILHOUETTE: Cardiomediastinal silhouette is stable in size and configuration. LUNGS: Interval increase in left basilar opacity with blunting of the left costophrenic angle. Diffusely increased interstitial opacities are also noted. No pneumothorax. ABDOMEN: No remarkable upper abdominal findings. BONES: No acute osseous changes. [facility] Karlo Moreno MD - 11/19/2024 Interpreted By: Karlo Moreno, STUDY: XR CHEST 1 VIEW; 11/19/2024 4:47 am INDICATION: Signs/Symptoms:s/p valve procedure. COMPARISON: Exam dated 11/18/2024 ACCESSION NUMBER(S): [id number] ORDERING CLINICIAN: AMANDA WARD FINDINGS: AP radiograph of the chest was provided. Left chest wall pacer device and leads are in similar position. Status post TAVR. CARDIOMEDIASTINAL SILHOUETTE: Cardiomediastinal silhouette is stable in size and configuration. LUNGS: Interval increase in left basilar opacity with blunting of the left costophrenic angle. Diffusely increased interstitial opacities are also noted. No pneumothorax. ABDOMEN: No remarkable upper abdominal findings. BONES: No acute osseous changes. IMPRESSION: 1. Interval increase in diffuse interstitial opacities which are suggestive of pulmonary edema. 2. New small left pleural effusion with increasing left basilar opacities. These may represent atelectasis though correlate with concern for interval aspiration. MACRO: None Signed by: Karlo Moreno 11/19/2024 10:52 AM Dictation workstation: [id number] [facility] Work Phone: [facility] Work Phone: Radiology Study observation (narrative) [facility] Work Phone: Basic metabolic 2000 panelon 11-18-2024 Anion gap [Moles/Vol] 15 mmol/L 10 - 2 0 mmol/L [facility] Calcium [Mass/Vol] 9.1 mg/dL 8.6 - 10. 6 mg/dL [facility] Chloride [Moles/Vol] 108 mmol/L High 98 - 10 7 mmol/L [facility] CO2 [Moles/Vol] 25 mmol/L 21 - 32 mmol/L [facility] Creatinine [Mass/Vol] 0.87 mg/dL 0.50 - 1.30 mg/dL [facility] GFR/1.73 sq M.predicted among non-blacks MDRD (S/P/Bld) [Vol rate/Area] 89 mL/min/{1.73_m2} - PINF [facility] Comment on above: Calculations of zack mated GFR are performed using the 2020 CKD-EPI Study Refit equation without the race variable for the IDMS-Traceable creatinine methods. https://jasn.asnjournals.org/content//ASN.60749 12393 Glucose [Mass/Vol] 123 mg/dL High 74 - 99 mg/dL [facility] Interpretation and review of laboratory results Abnormal [facility] Potassium [Moles/Vol] 3.6 mmol/L 3.5 - 5.3 mmol/L [facility] Sodium [Moles/Vol] 144 mmol/L 136 - 145 mmol/L [facility] Urea nitrogen [Mass/Vol] 18 mg/dL 6 - 23 mg/dL [facility] Anion gap [Moles/Vol] 15 mmol/L Normal 10-20 [facility] Comment on above: Performed By: #### 3 4532-2 #### LUCRECIA Weiss ([id number]) [facility] ([facility]) [address] [place] [address] Calcium [Mass/Vol] 9.1 mg/dL Normal 8.6-10.6 [facility] Comment on above: Performed By: #### 3 4532-2 #### LUCRECIA Weiss ([id number]) [facility] ([facility]) [address] [place] [address] Chloride [Moles/Vol] 108 mmol/L High 98-107 [facility] Comment on above: Performed By: #### 3 4532-2 #### LUCRECIA Weiss ([id number]) [facility] ([facility]) [address] [place] [address] CO2 [Moles/Vol] 25 mmol/L Normal 21-32 [facility] Comment on above: Performed By: #### 3 4532-2 #### LUCRECIA Weiss ([id number]) [facility] ([facility]) [address] [place] [address] Creatinine [Mass/Vol] 0.87 mg/dL Normal 0.50-1.30 [facility] Comment on above: Performed By: #### 3 4532-2 #### LUCRECIA Weiss ([id number]) [facility] ([facility]) [address] [place] [address] Glomerular filtration rate/1.73 sq M.predicted 89 mL/min/1.73m*2 Normal >60 [facility] Comment on above: Result Comment: Calc ulations of estimated GFR are performed using the 2020 CKD-EPI Study Refit equation without the race variable for the IDMS-Traceable creatinine methods. https://jasn.asnjournals.org/content/early//ASN.71917 38627 Performed By: #### 3 4532-2 #### LUCRECIA Weiss ([id number]) [facility] ([facility]) [address] [place] [address] Glucose [Mass/Vol] 123 mg/dL High 74-99 [facility] Comment on above: Performed By: #### 3 4532-2 #### LUCRECIA Weiss ([id number]) [facility] ([facility]) [address] [place] [address] Potassium [Moles/Vol] 3.6 mmol/L Normal 3.5-5.3 [facility] Comment on above: Performed By: #### 3 4532-2 #### LUCRECIA Weiss ([id number]) [facility] ([facility]) [address] [place] [address] Sodium [Moles/Vol] 144 mmol/L Normal 136-145 [facility] Comment on above: Performed By: #### 3 4532-2 #### LUCRECIA Weiss ([id number]) [facility] ([facility]) [address] [place] [address] Urea nitrogen [Mass/Vol] 18 mg/dL Normal 6-23 [facility] Comment on above: Performed By: #### 3 4532-2 #### LUCRECIA Weiss ([id number]) [facility] ([facility]) [address] [place] [address] CBC W Auto Differential pane l (Bld)on 11-18-2024 Basophils (Bld) [#/Vol] 0.02 10*3/uL [facility] Basophils/100 WBC (Bld) 0.2 % 0.0 - 2.0 % [facility] Eosinophils (Bld) [#/Vol] 0.01 10*3/uL [facility] Eosinophils/100 WBC (Bld) 0.1 % 0.0 - 6.0 % [facility] Erythrocyte distribution width (RBC) [Ratio] 15.9 % High 11.5 - 14.5 % [facility] Hematocrit (Bld) [Volume fraction] 36.4 % Low 41.0 - 52.0 % [facility] Hemoglobin (Bld) [Mass/Vol] 11.8 g/dL Low 13.5 - 17.5 g/dL [facility] Immature granulocytes (Bld) [#/Vol] 0.05 10*3/uL [facility] Immature granulocytes/100 WBC (Bld) 0.4 % 0.0 - 0.9 % [facility] Comment on above: Immature Granulocyte Count (IG) includes promyelocytes, myelocytes and metamyelocytes but does not include bands. Percent differential counts (%) should be interpreted in the context of the absolute cell counts (cells/UL). Interpretation and review of laboratory results Abnormal [facility] Lymphocytes (Bld) [#/Vol] 0.78 10*3/uL Low [facility] Lymphocytes/100 WBC (Bld) 6.9 % 13.0 - 44.0 % [facility] MCH (RBC) [Entitic mass] 30.7 pg 26.0 - 34.0 pg [facility] MCHC (RBC) [Mass/Vol] 32.4 g/dL 32.0 - 36.0 g/dL [facility] MCV (RBC) [Entitic vol] 95 fL 80 - 100 fL [facility] Monocytes (Bld) [#/Vol] 0.88 10*3/uL High [facility] Monocytes/100 WBC (Bld) 7.8 % 2.0 - 10.0 % [facility] Neutrophils (Bld) [#/Vol] 9.52 10*3/uL [facility] Comment on above: Percent differential counts (%) should be interpreted in the context of the absolute cell counts (cells/uL). Neutrophils/100 WBC (Bld) 84.6 % 40.0 - 80.0 % [facility] Nucleated RBC/100 WBC (Bld) [Ratio] 0 % [facility] Platelets (Bld) [#/Vol] 125 10*3/uL Low [facility] RBC (Bld) [#/Vol] 3.84 10*6/uL [facility] WBC (Bld) [#/Vol] 11.3 10*3/uL [facility] Basophils (Bld) [#/Vol] 0.02 x10*3/uL Normal 0.00-0.10 [facility] Comment on above: Performed By: #### 3 4531-2 #### LUCRECIA Weiss ([id number]) [facility] ([facility]) [address] [place] [address] Basophils/100 WBC (Bld) 0.2 % Normal 0.0-2.0 [facility] Comment on above: Performed By: #### 3 4531-2 #### LUCRECIA Weiss ([id number]) [facility] ([facility]) [address] [place] [address] Eosinophils (Bld) [#/Vol] 0.01 x10*3/uL Normal 0.00-0.40 [facility] Comment on above: Performed By: #### 3 4531-2 #### LUCRECIA Weiss ([id number]) [facility] ([facility]) [address] [place] [address] Eosinophils/100 WBC (Bld) 0.1 % Normal 0.0-6.0 [facility] Comment on above: Performed By: #### 3 4531-2 #### LUCRECIA Weiss ([id number]) [facility] ([facility]) [address] [place] [address] Erythrocyte distribution width (RBC) [Ratio] 15.9 % High 11.5-14.5 [facility] Comment on above: Performed By: #### 3 4531-2 #### LUCRECIA Weiss ([id number]) [facility] ([facility]) [address] [place] [address] Hematocrit (Bld) [Volume fraction] 36.4 % Low 41.0-52.0 [facility] Comment on above: Performed By: #### 3 4531-2 #### LUCRECIA Weiss ([id number]) [facility] ([facility]) [address] [place] [address] Hemoglobin (Bld) [Mass/Vol] 11.8 g/dL Low 13.5-17.5 [facility] Comment on above: Performed By: #### 3 4531-2 #### LUCRECIA Weiss ([id number]) [facility] ([facility]) [address] [place] [address] Immature granulocytes (Bld) [#/Vol] 0.05 x10*3/uL Normal 0.00-0.50 [facility] Comment on above: Performed By: #### 3 453-2 #### LUCRECIA Weiss ([id number]) [facility] ([facility]) [address] [place] [address] Immature granulocytes/100 WBC (Bld) 0.4 % Normal 0.0-0.9 [facility] Comment on above: Result Comment: Vero ture Granulocyte Count (IG) includes promyelocytes, myelocytes and metamyelocytes but does not include bands. Percent differential counts (%) should be interpreted in the context of the absolute cell counts (cells/UL). Performed By: #### 3 453-2 #### LUCRECIA Weiss ([id number]) [facility] ([facility]) [address] [place] [address] Lymphocytes (Bld) [#/Vol] 0.78 x10*3/uL Low 0.80-3.00 [facility] Comment on above: Performed By: #### 3 453-2 #### LUCRECIA Weiss ([id number]) [facility] ([facility]) [address] [place] [address] Lymphocytes/100 WBC (Bld) 6.9 % Normal 13.0-44.0 [facility] Comment on above: Performed By: #### 3 453-2 #### LUCRECIA Weiss ([id number]) [facility] ([facility]) [address] [place] [address] MCH (RBC) [Entitic mass] 30.7 pg Normal 26.0-34.0 [facility] Comment on above: Performed By: #### 3 453-2 #### LUCRECIA Weiss ([id number]) [facility] ([facility]) [address] [place] [address] MCHC (RBC) [Mass/Vol] 32.4 g/dL Normal 32.0-36.0 [facility] Comment on above: Performed By: #### 3 453-2 #### LUCRECIA Weiss ([id number]) [facility] ([facility]) [address] [place] [address] MCV (RBC) [Entitic vol] 95 fL Normal 80-100 [facility] Comment on above: Performed By: #### 3 4531-2 #### LUCRECIA Weiss ([id number]) [facility] ([facility]) [address] [place] [address] Monocytes (Bld) [#/Vol] 0.88 x10*3/uL High 0.05-0.80 [facility] Comment on above: Performed By: #### 3 4531-2 #### LUCRECIA Weiss ([id number]) [facility] ([facility]) [address] [place] [address] Monocytes/100 WBC (Bld) 7.8 % Normal 2.0-10.0 [facility] Comment on above: Performed By: #### 3 4531-2 #### LUCRECIA Weiss ([id number]) [facility] ([facility]) [address] [place] [address] Neutrophils (Bld) [#/Vol] 9.52 x10*3/uL High 1.60-5.50 [facility] Comment on above: Result Comment: Perc ent differential counts (%) should be interpreted in the context of the absolute cell counts (cells/uL). Performed By: #### 3 453-2 #### LUCRECIA Weiss ([id number]) [facility] ([facility]) [address] [place] [address] Neutrophils/100 WBC (Bld) 84.6 % Normal 40.0-80.0 [facility] Comment on above: Performed By: #### 3 453-2 #### LUCRECIA Weiss ([id number]) [facility] ([facility]) [address] [place] [address] Nucleated RBC/100 WBC (Bld) [Ratio] 0.0 /100 WBCs Normal 0.0-0.0 [facility] Comment on above: Performed By: #### 3 4532-2 #### LUCRECIA Weiss ([id number]) [facility] ([facility]) [address] [place] [address] Platelets (Bld) [#/Vol] 125 x10*3/uL Low 150-450 [facility] Comment on above: Performed By: #### 3 4531-2 #### LUCRECIA Weiss ([id number]) [facility] ([facility]) [address] [place] [address] RBC (Bld) [#/Vol] 3.84 x10*6/uL Low 4.50-5.90 [facility] Comment on above: Performed By: #### 3 4531-2 #### LUCRECIA Weiss ([id number]) [facility] ([facility]) [address] [place] [address] WBC (Bld) [#/Vol] 11.3 x10*3/uL Normal 4.4-11.3 [facility] Comment on above: Performed By: #### 3 4532-2 #### LUCRECIA Weiss ([id number]) [facility] ([facility]) [address] [place] [address] Coagulation tissue factor in ducedon 11-18-2024 PT Coag (PPP) [Time] 14.9 s High 9.8-12.4 [facility] Comment on above: Performed By: #### 3 4532-2 #### LURCECIA Weiss ([id number]) [facility] ([facility]) [address] [place] [address] ECG 12-LEADon 11-18-2024 ECG 12-LEAD Ventricular Rate 70 Atrial Rate 69 QRS Duration 192 Q-T Interval 500 QTC Calculation(Bazett) 540 R Ponderosa -81 T Ponderosa 88 QRS Count 12 Q Onset 186 T Offset 436 QTC Fredericia 526 Diagnosis Ventricular-paced rhythm Abnormal ECG When compared with ECG of 17-NOV-2024 12:48, Electronic ventricular pacemaker has replaced Wide QRS rhythm Confirmed by Jason Zapien ([id number]) on 11/20/2024 5:14:27 PM Normal [facility] Magnesiumon 11-18-2024 Magnesium [Mass/Vol] 2.04 mg/dL 1.60 - 2.40 mg/dL [facility] Magnesium [Mass/Vol] 2.04 mg/dL Normal 1.60-2.40 [facility] Comment on above: Performed By: #### 3 4532-2 #### LUCRECIA Weiss ([id number]) [facility] ([facility]) [address] [place] [address] 51253 Magnesium [Mass/Vol]on 11-18 Interpretation and review of laboratory results Normal [facility] No Panel Informationon 11-18 [facility] PT Coag (PPP) [Time]on 11-18 INR Coag (PPP) [Relative time] 1.3 {INR} High 0.9 - 1.1 [facility] Interpretation and review of laboratory results Abnormal [facility] INR Coag (PPP) [Relative time] 1.3 High 0.9-1.1 [facility] Comment on above: Performed By: #### 3 4532-2 #### LUCRECIA Weiss ([id number]) [facility] ([facility]) [address] [place] [address] 46579 Protime-INRon 11-18-2024 PT Coag (PPP) [Time] 14.9 s High [facility] TRANSTHORACIC ECHO (TTE) HUGGINS ITEDon 11-18-2024 TRANSTHORACIC ECHO (TTE) [facility], [address] [place] [address] and TRANSTHORACIC ECHOCARDIOGRAM REPORT Patient Name: ALAN ROTH Reading Physician: [id number] Alex Chisholm MD Study Date: 11/18/2024 Ordering Provider: [id number] AMANDA WARD MRN/PID: [id number] Fellow: Nurse: Date of /Age: 2 1945 Extract Puller: Shanthi Correa RCS years Gender assigned at M Additional Staff: : Height: 177.00 cm Admit Date: 11/14/2024 Weight: 83.46 kg Admission Status: Inpatient - Routine BSA / BMI: 2.01 m2 / 26.64 kg/m2 Blood Pressure: 136/69 mmHg Department Location: [facility] Non Invasive Study Type: TRANSTHORACIC ECHO (TTE) LIMITED Diagnosis/ICD: 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 Valve Disorders: Aortic Stenosis, Tricuspid Regurgitation and Pulmonic Insufficiency. Pertinent History: A-Fib, CAD, Hyperlipidemia, HTN and COPD. 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 Study Detail: The following Echo studies were performed: 2D, M-Mode, Doppler and color flow. Technically challenging study due to prominent lung artifact. Definity used as a contrast agent for endocardial border definition. Total contrast used for this procedure was 3.0 mL via IV push. Patient's heart rhythm is atrial fibrillation. PHYSICIAN INTERPRETATION: Left Ventricle: The left ventricular systolic function is normal, with a visually estimated ejection fraction of 55-60%. There is moderate concentric left ventricular hypertrophy. There are no regional left ventricular wall motion abnormalities. The left ventricular cavity size is normal. There is moderately increased septal and mildly increased posterior left ventricular wall thickness. Spectral Doppler shows an abnormal pattern of left ventricular diastolic filling due to atrial fibrillation/flutter. Left Atrium: The left atrium is mildly dilated. Right Ventricle: The right ventricle is normal in size. There is normal right ventricular global systolic function. Right Atrium: The right atrium is normal in size. There is a device visualized in the right atrium. Aortic Valve: There is a prosthetic aortic valve present. The aortic valve dimensionless index is 0.72. There is Metronic Evolut FX+ transcatheter aortic valve bioprosthesis with a 29 mm reported size. There is mild periprosthetic aortic valve regurgitation. There is mild aortic valve regurgitation. The peak instantaneous gradient of the aortic valve is 18 mmHg. The mean gradient of the aortic valve is 10 mmHg. Mitral Valve: The mitral valve is mildly thickened. There is evidence of mild mitral valve stenosis. The doppler estimated mean and peak diastolic pressure gradients are 5 mmHg and 13 mmHg respectively. There is moderate to severe mitral annular calcification. The peak instantaneous gradient of the mitral valve is 13 mmHg. There is trace mitral valve regurgitation. Mild mitral stenosis due to severe mitral annular calcification. Gradient 5 mm Hg at HR = 70 bpm. Tricuspid Valve: The tricuspid valve is structurally normal. There is mild to moderate tricuspid regurgitation. Pulmonic Valve: The pulmonic valve is not well visualized. There is physiologic pulmonic valve regurgitation. Pericardium: Trivial pericardial effusion. Aorta: The aortic root is normal. The Asc Ao is 3.70 cm. There is mild dilatation of the ascending aorta. Pulmonary Artery: The tricuspid regurgitant velocity is 3.33 m/s, and with an estimated right atrial pressure of 8 mmHg, the estimated pulmonary artery pressure is moderately elevated with the RVSP at 52.4 mmHg. Systemic Veins: The inferior vena cava appears mildly dilated, with IVC inspiratory collapse greater than 50%. In comparison to the previous echocardiogram(s): Compared with study dated 11/17/2024, no significant change. CONCLUSIONS: 1. The left ventricular systolic function is normal, with a visually estimated ejection fraction of 55-60%. 2. Spectral Doppler shows an abnormal pattern of left ventricular diastolic filling due to atrial fibrillation/flutter. 3. There is moderately increased septal thickness. 4. There is moderate concentric left ventricular hypertrophy. 5. There is normal right ventricular global systolic function. 6. The left atrium is mildly dilated. 7. There is mild mitral valve stenosis. 8. There is moderate to severe mitral annular calcification. 9. Mild to moderate tricuspid regurgitation visualized. 10. There is Metronic Evolut FX+ transcatheter aortic valve bioprosthesis with a 29 mm reported size. 11. Mild aortic valve regurgitation. 12. Moderately elevated pulmonary artery pressure. 13. The inferior vena cava appears mildly dilated (more content not included)... Normal [facility] US Heart Transthoracicon AV mn grad 10 mmHg [facility] Work Phone: AV pk grad 18 mmHg [facility] Work Phone: AV pk negar 2.11 m/s [facility] Work Phone: LA vol index A/L 37.4 ml/m2 [facility] Work Phone: LV A4C EF 52.9 [facility] Work Phone: [phone] LV EF 58 % [facility] Work Phone: [phone] LVIDd 5.3 cm [facility] Work Phone: RV free wall pk S' 10 cm/s [facility] Work Phone: [phone] RVSP 52.4 mmHg [facility] Work Phone: [phone] Tricuspid annular plane systolic excursion 2.3 cm [facility] Work Phone: [facility], [address] [place] [address] and TRANSTHORACIC ECHOCARDIOGRAM REPORT Patient Name: ALAN Lange Physician: [id number] Alex Chisholm MD Study Date: 11/18/2024 Ordering Provider: [id number] AMANDA WARD MRN/PID: [id number] Fellow: Nurse: Date of /Age: 2 1945 Extract Puller: Shanthi Correa RCS years Gender assigned at M Additional Staff: : Height: 177.00 cm Admit Date: 11/14/2024 Weight: 83.46 kg Admission Status: Inpatient - Routine BSA / BMI: 2.01 m2 / 26.64 kg/m2 Blood Pressure: 136/69 mmHg Department Location: [facility] Non Invasive Study Type: TRANSTHORACIC ECHO (TTE) LIMITED Diagnosis/ICD: 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 Valve Disorders: Aortic Stenosis, Tricuspid Regurgitation and Pulmonic Insufficiency. Pertinent History: A-Fib, CAD, Hyperlipidemia, HTN and COPD. 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 Study Detail: The following Echo studies were performed: 2D, M-Mode, Doppler and color flow. Technically challenging study due to prominent lung artifact. Definity used as a contrast agent for endocardial border definition. Total contrast used for this procedure was 3.0 mL via IV push. Patient's heart rhythm is atrial fibrillation. PHYSICIAN INTERPRETATION: Left Ventricle: The left ventricular systolic function is normal, with a visually estimated ejection fraction of 55-60%. There is moderate concentric left ventricular hypertrophy. There are no regional left ventricular wall motion abnormalities. The left ventricular cavity size is normal. There is moderately increased septal and mildly increased posterior left ventricular wall thickness. Spectral Doppler shows an abnormal pattern of left ventricular diastolic filling due to atrial fibrillation/flutter. Left Atrium: The left atrium is mildly dilated. Right Ventricle: The right ventricle is normal in size. There is normal right ventricular global systolic function. Right Atrium: The right atrium is normal in size. There is a device visualized in the right atrium. Aortic Valve: There is a prosthetic aortic valve present. The aortic valve dimensionless index is 0.72. There is Metronic Evolut FX+ transcatheter aortic valve bioprosthesis with a 29 mm reported size. There is mild periprosthetic aortic valve regurgitation. There is mild aortic valve regurgitation. The peak instantaneous gradient of the aortic valve is 18 mmHg. The mean gradient of the aortic valve is 10 mmHg. Mitral Valve: The mitral valve is mildly thickened. There is evidence of mild mitral valve stenosis. The doppler estimated mean and peak diastolic pressure gradients are 5 mmHg and 13 mmHg respectively. There is moderate to severe mitral annular calcification. The peak instantaneous gradient of the mitral valve is 13 mmHg. There is trace mitral valve regurgitation. Mild mitral stenosis due to severe mitral annular calcification. Gradient 5 mm Hg at HR = 70 bpm. Tricuspid Valve: The tricuspid valve is structurally normal. There is mild to moderate tricuspid regurgitation. Pulmonic Valve: The pulmonic valve is not well visualized. There is physiologic pulmonic valve regurgitation. Pericardium: Trivial pericardial effusion. Aorta: The aortic root is normal. The Asc Ao is 3.70 cm. There is mild dilatation of the ascending aorta. Pulmonary Artery: The tricuspid regurgitant velocity is 3.33 m/s, and with an estimated right atrial pressure of 8 mmHg, the estimated pulmonary artery pressure is moderately elevated with the RVSP at 52.4 mmHg. Systemic Veins: The inferior vena cava appears mildly dilated, with IVC inspiratory collapse greater than 50%. In comparison to the previous echocardiogram(s): Compared with study dated 11/17/2024, no significant change. CONCLUSIONS: 1. The left ventricular systolic function is normal, with a visually estimated ejection fraction of 55-60%. 2. Spectral Doppler shows an abnormal pattern of left ventricular diastolic filling due to atrial fibrillati (more content not included)... Alex Carlisle M D - 11/18/2024 [facility], [address] [place] [address] and TRANSTHORACIC ECHOCARDIOGRAM REPORT Patient Name: ALAN Kvng ROTH Reading Physician: [id number] Alex Chisholm MD Study Date: 11/18/2024 Ordering Provider: [id number] AMANDA WARD MRN/PID: [id number] Fellow: Nurse: Date of /Age: 2 1945 Extract Puller: Shanthi Correa RCS kathleen Gender assigned at M Additional Staff: : Height: 177.00 cm Admit Date: 11/14/2024 Weight: 83.46 kg Admission Status: Inpatient - Routine BSA / BMI: 2.01 m2 / 26.64 kg/m2 Blood Pressure: 136/69 mmHg Department Location: [facility] Non Invasive Study Type: TRANSTHORACIC ECHO (TTE) LIMITED Diagnosis/ICD: 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 Valve Disorders: Aortic Stenosis, Tricuspid Regurgitation and Pulmonic Insufficiency. Pertinent History: A-Fib, CAD, Hyperlipidemia, HTN and COPD. 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 Study Detail: The following Echo studies were performed: 2D, M-Mode, Doppler and color flow. Technically challenging study due to prominent lung artifact. Definity used as a contrast agent for endocardial border definition. Total contrast used for this procedure was 3.0 mL via IV push. Patient's heart rhythm is atrial fibrillation. PHYSICIAN INTERPRETATION: Left Ventricle: The left ventricular systolic function is normal, with a visually estimated ejection fraction of 55-60%. There is moderate concentric left ventricular hypertrophy. There are no regional left ventricular wall motion abnormalities. The left ventricular cavity size is normal. There is moderately increased septal and mildly increased posterior left ventricular wall thickness. Spectral Doppler shows an abnormal pattern of left ventricular diastolic filling due to atrial fibrillation/flutter. Left Atrium: The left atrium is mildly dilated. Right Ventricle: The right ventricle is normal in size. There is normal right ventricular global systolic function. Right Atrium: The right atrium is normal in size. There is a device visualized in the right atrium. Aortic Valve: There is a prosthetic aortic valve present. The aortic valve dimensionless index is 0.72. There is Metronic Evolut FX+ transcatheter aortic valve bioprosthesis with a 29 mm reported size. There is mild periprosthetic aortic valve regurgitation. There is mild aortic valve regurgitation. The peak instantaneous gradient of the aortic valve is 18 mmHg. The mean gradient of the aortic valve is 10 mmHg. Mitral Valve: The mitral valve is mildly thickened. There is evidence of mild mitral valve stenosis. The doppler estimated mean and peak diastolic pressure gradients are 5 mmHg and 13 mmHg respectively. There is moderate to severe mitral annular calcification. The peak instantaneous gradient of the mitral valve is 13 mmHg. There is trace mitral valve regurgitation. Mild mitral stenosis due to severe mitral annular calcification. Gradient 5 mm Hg at HR = 70 bpm. Tricuspid Valve: The tricuspid valve is structurally normal. There is mild to moderate tricuspid regurgitation. Pulmonic Valve: The pulmonic valve is not well visualized. There is physiologic pulmonic valve regurgitation. Pericardium: Trivial pericardial effusion. Aorta: The aortic root is normal. The Asc Ao is 3.70 cm. There is mild dilatation of the ascending aorta. Pulmonary Artery: The tricuspid regurgitant velocity is 3.33 m/s, and with an estimated right atrial pressure of 8 mmHg, the estimated pulmonary artery pressure is moderately elevated with the RVSP at 52.4 mmHg. Systemic Veins: The inferior vena cava appears mildly dilated, with IVC inspiratory collapse greater than 50%. In comparison to the previous echocardiogram(s): Compared with study dated 11/17/2024, no significant change. CONCLUSIONS: 1. The left ventricular systolic function is normal, with a visually estimated ejection fraction of 55-60%. 2. Spectral Doppler shows an abnormal pattern of left ventricular diastolic filling due to atrial fibrillation/flutter. 3. There is moderately increased septal thickness. 4. There is moderate concentric left ventricular hypertrophy. 5. There is normal right ventricular global systolic function. 6. The left atrium is mildly dilated. 7. There is mild mitral valve stenosis. 8. There is moderate to severe mitral annular calcification. 9. Mild to moderate tricuspid regurgitation visualized. 10. There is Metronic Evolut FX+ transcatheter aortic valve bioprosthesis with a 29 mm reported size. 11. Mild aortic valve regurgitati (more content not included)... [facility] Work Phone: [facility] Work Phone: XR CHEST 1 VIEWon 11-18-2024 XR CHEST 1 VIEW Interpreted By: Karlo Larios, STUDY: XR CHEST 1 VIEW; 11/18/2024 1:22 am INDICATION: Signs/Symptoms:s/p valve procedure. COMPARISON: Exam dated 11/25/2024 ACCESSION NUMBER(S): [id number] ORDERING CLINICIAN: AMANDA WARD FINDINGS: AP radiograph of the chest was provided. Status post TAVR. Left chest wall pacer device and leads are in similar position. CARDIOMEDIASTINAL SILHOUETTE: Cardiomediastinal silhouette is stable in size and configuration. LUNGS: Right upper lobe opacity is improved from the prior exam. New streaky left mid lung opacities likely represent atelectasis. Similar upper lung predominant emphysema. No large pleural effusion or evidence of pneumothorax. ABDOMEN: No remarkable upper abdominal findings. BONES: No acute osseous changes. IMPRESSION: 1. Status post TAVR with improvement in the right upper lung opacity. There is persistent right upper lung hazy opacity that may represent resolving atelectasis. MACRO: None Signed by: Karlo Moreno 11/18/2024 7:02 AM Dictation workstation: [id number] [facility] XR Chest Single viewon 11-18 1. Status post TAVR with improvement in the right upper lung opacity. There is persistent right upper lung hazy opacity that may represent resolving atelectasis. MACRO: None Signed by: Karlo Moreno 11/18/2024 7:02 AM Dictation workstation: [id number] MMODAL Interpreted By: Karlo Larios, STUDY: XR CHEST 1 VIEW; 11/18/2024 1:22 am INDICATION: Signs/Symptoms:s/p valve procedure. COMPARISON: Exam dated 11/25/2024 ACCESSION NUMBER(S): [id number] ORDERING CLINICIAN: AMANDA WARD FINDINGS: AP radiograph of the chest was provided. Status post TAVR. Left chest wall pacer device and leads are in similar position. CARDIOMEDIASTINAL SILHOUETTE: Cardiomediastinal silhouette is stable in size and configuration. LUNGS: Right upper lobe opacity is improved from the prior exam. New streaky left mid lung opacities likely represent atelectasis. Similar upper lung predominant emphysema. No large pleural effusion or evidence of pneumothorax. ABDOMEN: No remarkable upper abdominal findings. BONES: No acute osseous changes. MMODAL Karlo Moreno MD - 11/18/2024 Interpreted By: Karlo Moreno, STUDY: XR CHEST 1 VIEW; 11/18/2024 1:22 am INDICATION: Signs/Symptoms:s/p valve procedure. COMPARISON: Exam dated 11/25/2024 ACCESSION NUMBER(S): [id number] ORDERING CLINICIAN: AMANDA WARD FINDINGS: AP radiograph of the chest was provided. Status post TAVR. Left chest wall pacer device and leads are in similar position. CARDIOMEDIASTINAL SILHOUETTE: Cardiomediastinal silhouette is stable in size and configuration. LUNGS: Right upper lobe opacity is improved from the prior exam. New streaky left mid lung opacities likely represent atelectasis. Similar upper lung predominant emphysema. No large pleural effusion or evidence of pneumothorax. ABDOMEN: No remarkable upper abdominal findings. BONES: No acute osseous changes. IMPRESSION: 1. Status post TAVR with improvement in the right upper lung opacity. There is persistent right upper lung hazy opacity that may represent resolving atelectasis. MACRO: None Signed by: Karlo Moreno 11/18/2024 7:02 AM Dictation workstation: [id number] [facility] Work Phone: [facility] Work Phone: 1. Hazy right upper lobe airspace opacity could represent atelectasis from mucous plugging though developing pneumonia is not excluded. 2. Status post TAVR. MACRO: None Signed by: Karlo Moreno 11/18/2024 7:01 AM Dictation workstation: [id number] [facility]ODAL Interpreted By: Karlo Larios, STUDY: XR CHEST 1 VIEW; 11/17/2024 2:38 pm INDICATION: Signs/Symptoms:s/p valve procedure. COMPARISON: CT dated 11/09/2024 ACCESSION NUMBER(S): [id number] ORDERING CLINICIAN: AMANDA WARD FINDINGS: AP radiograph of the chest was provided. Status post TAVR. Left chest wall pacer device is noted with lead tips projecting over the right atrial appendage and right ventricle. CARDIOMEDIASTINAL SILHOUETTE: Cardiomediastinal silhouette is normal in size and configuration. LUNGS: The costophrenic angles are excluded from the field of view. Upper lung predominant emphysema is again seen. There appears to be a new hazy right upper lobe airspace opacity. No evidence of pneumothorax. ABDOMEN: No remarkable upper abdominal findings. BONES: No acute osseous changes. MMODAL Karlo Moreno MD - 11/18/2024 Interpreted By: Karlo Moreno, STUDY: XR CHEST 1 VIEW; 11/17/2024 2:38 pm INDICATION: Signs/Symptoms:s/p valve procedure. COMPARISON: CT dated 11/09/2024 ACCESSION NUMBER(S): [id number] ORDERING CLINICIAN: AMANDA WARD FINDINGS: AP radiograph of the chest was provided. Status post TAVR. Left chest wall pacer device is noted with lead tips projecting over the right atrial appendage and right ventricle. CARDIOMEDIASTINAL SILHOUETTE: Cardiomediastinal silhouette is normal in size and configuration. LUNGS: The costophrenic angles are excluded from the field of view. Upper lung predominant emphysema is again seen. There appears to be a new hazy right upper lobe airspace opacity. No evidence of pneumothorax. ABDOMEN: No remarkable upper abdominal findings. BONES: No acute osseous changes. IMPRESSION: 1. Hazy right upper lobe airspace opacity could represent atelectasis from mucous plugging though developing pneumonia is not excluded. 2. Status post TAVR. MACRO: None Signed by: Karlo Moreno 11/18/2024 7:01 AM Dictation workstation: [id number] [facility] Work Phone: Radiology Study observation (narrative) [facility] Work Phone: XR Chest Single viewOrdered By: Karlo Moreno on 11-18-2024 [facility] Work Phone: ACT Coag (Bld)on 11-17-2024 Interpretation and review of laboratory results Abnormal [facility] Interpretation and review of laboratory results Abnormal [facility] Interpretation and review of laboratory results Abnormal [facility] Interpretation and review of laboratory results Abnormal [facility] ACTIVATED CLOTTING TIME LOWo n 11-17-2024 ACT Coag (Bld) 260 s [facility] Comment on above: Target ACT range kirstie l vary based on the patient population, clinical status, and surgical intervention occurring. ACT Coag (Bld) [facility] Comment on above: ABOVE LIMIT FOR MACO CE Target ACT range will vary based on the patient population, clinical status, and surgical intervention occurring. ACT Coag (Bld) 256 s [facility] Comment on above: Target ACT range kirstie l vary based on the patient population, clinical status, and surgical intervention occurring. ACT Coag (Bld) [facility] Comment on above: ABOVE LIMIT FOR MACO CE Target ACT range will vary based on the patient population, clinical status, and surgical intervention occurring. Abo/Rh Group Teston 11-18-19 25 ABO group Nom (Bld) O Unive [facility] D Ag Ql (Bld) Negative [facility] Activated clotting timeon ACT Coag (Bld) [address] Comment on above: Result Comment: Targ et ACT range will vary based on the patient population, clinical status, and surgical intervention occurring. Performed By: #### 3 184-9 #### LUCRECIA Weiss ([id number]) [facility] ([facility]) [address] [place] [address] 36032 ACT Coag (Bld) s [address] Comment on above: Result Comment: ABOV E LIMIT FOR DEVICE Target ACT range will vary based on the patient population, clinical status, and surgical intervention occurring. Performed By: #### 3 184-9 #### LUCRECIA Weiss ([id number]) [facility] ([facility]) [address] [place] [address] [id number] ACT Coag (Bld) [address] Comment on above: Result Comment: Targ et ACT range will vary based on the patient population, clinical status, and surgical intervention occurring. Performed By: #### 3 184-9 #### LUCRECIA Weiss ([id number]) [facility] ([facility]) [address] [place] [address] [id number] ACT Coag (Bld) s [address] Comment on above: Result Comment: ABOV E LIMIT FOR DEVICE Target ACT range will vary based on the patient population, clinical status, and surgical intervention occurring. Performed By: #### 3 184-9 #### LUCRECIA Weiss ([id number]) [facility] ([facility]) [address] [place] [place] [address]01 Basic metabolic 2000 panelon 11-17-2024 Anion gap [Moles/Vol] 11 mmol/L 10 - 2 0 mmol/L [facility] Calcium [Mass/Vol] 8.3 mg/dL Low 8.6 - 10. 6 mg/dL [facility] Chloride [Moles/Vol] 112 mmol/L High 98 - 10 7 mmol/L [facility] CO2 [Moles/Vol] 25 mmol/L 21 - 32 mmol/L [facility] Creatinine [Mass/Vol] 0.87 mg/dL 0.50 - 1.30 mg/dL [facility] GFR/1.73 sq M.predicted among non-blacks MDRD (S/P/Bld) [Vol rate/Area] 89 mL/min/{1.73_m2} - PINF [facility] Comment on above: Calculations of zack mated GFR are performed using the 2020 CKD-EPI Study Refit equation without the race variable for the IDMS-Traceable creatinine methods. https://jasn.asnjournals.org/content/early//ASN.93912 80816 Glucose [Mass/Vol] 113 mg/dL High 74 - 99 mg/dL [facility] Interpretation and review of laboratory results Abnormal [facility] Potassium [Moles/Vol] 4 mmol/L 3.5 - 5.3 mmol/L [facility] Sodium [Moles/Vol] 144 mmol/L 136 - 145 mmol/L [facility] Urea nitrogen [Mass/Vol] 18 mg/dL 6 - 23 mg/dL [facility] Anion gap [Moles/Vol] 11 mmol/L Normal 10-20 [facility] Comment on above: Performed By: #### 2 4321-2 #### LUCRECIA Weiss ([id number]) [facility] ([facility]) [address] [place] [address] Calcium [Mass/Vol] 8.3 mg/dL Low 8.6-10.6 [facility] Comment on above: Performed By: #### 2 4321-2 #### LUCRECIA Weiss ([id number]) [facility] ([facility]) [address] [place] [address] Chloride [Moles/Vol] 112 mmol/L High 98-107 [facility] Comment on above: Performed By: #### 2 4321-2 #### LUCRECIA Weiss ([id number]) [facility] ([facility]) [address] [place] [address] CO2 [Moles/Vol] 25 mmol/L Normal 21-32 [facility] Comment on above: Performed By: #### 2 4321-2 #### LUCRECIA Weiss ([id number]) [facility] ([facility]) [address] [place] [address] 28233 Creatinine [Mass/Vol] 0.87 mg/dL Normal 0.50-1.30 [facility] Comment on above: Performed By: #### 2 4321-2 #### LUCRECIA Weiss ([id number]) [facility] ([facility]) [address] [place] [address] 27775 Glomerular filtration rate/1.73 sq M.predicted 89 mL/min/1.73m*2 Normal >60 [facility] Comment on above: Result Comment: Calc ulations of estimated GFR are performed using the 2020 CKD-EPI Study Refit equation without the race variable for the IDMS-Traceable creatinine methods. https://jasn.asnjournals.org/content//ASN.93578 31189 Performed By: #### 2 4321-2 #### LUCRECIA Weiss ([id number]) [facility] ([facility]) [address] [place] [address] 15807 Glucose [Mass/Vol] 113 mg/dL High 74-99 [facility] Comment on above: Performed By: #### 2 4321-2 #### LUCRECIA Weiss ([id number]) [facility] ([facility]) [address] [place] [address] 41893 Potassium [Moles/Vol] 4.0 mmol/L Normal 3.5-5.3 [facility] Comment on above: Performed By: #### 2 4321-2 #### LUCRECIA Weiss ([id number]) [facility] ([facility]) [address] [place] [address] 75723 Sodium [Moles/Vol] 144 mmol/L Normal 136-145 [facility] Comment on above: Performed By: #### 2 4321-2 #### LUCRECIA Wiess ([id number]) [facility] ([facility]) [address] [place] [address] 73398 Urea nitrogen [Mass/Vol] 18 mg/dL Normal 6-23 [facility] Comment on above: Performed By: #### 2 4321-2 #### LUCRECIA Weiss ([id number]) [facility] ([facility]) [address] [place] [address] 52092 Blood type and Indirect anti body screen panel (Bld)on 11-17-2024 ABO group Nom (Bld) O [facility] Blood group antibody screen Ql Negative [facility] D Ag Ql (Bld) Negative [facility] ABO group Nom (Bld) O Normal [facility] Comment on above: Performed By: #### 3 4532-2 #### LUCRECIA Weiss ([id number]) [facility] ([facility]) [address] [place] [address] 43746 Blood group antibody screen Ql Negative [facility] Comment on above: Performed By: #### 3 4532-2 #### LUCRECIA Weiss ([id number]) [facility] ([facility]) [address] [place] [address]1950 D Ag Ql (Bld) Negative [facility] Comment on above: Performed By: #### 3 4532-2 #### LUCRECIA Weiss ([id number]) [facility] ([facility]) [address] [place] [address] 11053 CARDIAC CATHETERIZATION PROC EDUREon 11-17-2024 CARDIAC CATHETERIZATION PROCEDURE [facility], Director Of Group Sales, [address] [place] [address] 15187 Cardiovascular Catheterization Report Patient Name: ALANМАРИНА COLVINE Performing Physician: Michael Hunter MD Study Date: 11/17/2024 Verifying Physician: Michael Hunter MD MRN/PID: [id number] [employer] Potato Disintegrator/Co-Scrub: Ordering Provider: Michael HUNTER Date of /Age: 2 1945 / 79 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 Transcatheter Aortic Valve Replacement (TAVR): The left femoral artery was accessed using the transfemoral method. A 6 Fr sheath was inserted followed by the deployment of 2 Proglides. A 14 F Sentrant Sheath was inserted and sutured. The right femoral artery was accessed percutaneously and a 4 Mongolian contralateral sheath was placed. A 7 Mongolian temporary pacemaker was inserted through the right femoral vein and advanced to the right ventricular apex. Adequate pacing thresholds were obtained. After crossing the stenotic aortic valve, balloon aortic valvuloplasty was performed with a 22 x 45 mm True Dilatation. Evolut FX+ 29 mm valve was deployed under rapid ventricular pacing at 140 BPM but significant constriction of the valve was seen at 80% deployment. The valve was retrieved and repeat predilatation with a 24 x 45 mm True Dilatation balloon was performed. Thereafter, a new Evolut FX+ 29 mm valve was successfully deployed under rapid ventricular pacing at 140 BPM. Transthoracic echo performed post valve deployment revealed no central aortic insufficiency and mild paravalvular aortic insufficiency. Thus, postdilatation was performed using a 24 x 45 mm True Dilatation balloon. Repeat TTE revealed trace/mild paravalvular AI and no central AI. No device related events. No bleeding events occurred during the procedure. No vascular access complications were revealed. Access site was closed using 2 ProGlide devices. Hemostasis was achieved in the right femoral artery using a ProGlide device. Temporary pacing wire was removed in lab. Hemo Personnel: + +- --------+ Name Duty + +- --------+ Beto Hunter MD, MD 1 + +- --------+ Hemodynamic Pressures: +----+ + ---------+ +--- +------+-------- -+ Site Date Time Phase Systolic Diastolic ED Mean mmHg Name mmHg mmHg mmHg +----+ + ---------+ +--- +------+-------- -+ AO 11/17/2024 11:02:40 Rest 0 -15 -14 AM +----+ + ---------+ +--- +------+-------- -+ LFA 11/17/2024 11:02:40 Rest 114 56 77 AM +----+ + ---------+ +--- +------+-------- -+ AO 11/17/2024 11:12:11 Rest 107 50 71 AM +----+ + ---------+ +--- +------+-------- -+ LV 11/17/2024 11:12:11 Rest 173 10 23 AM +----+ + ---------+ +--- +------+-------- -+ AO 11/17/2024 11:12:46 Rest 112 55 77 AM +----+ + ---------+ +--- +------+-------- -+ LV 11/17/2024 11:12:46 Rest 172 12 21 AM +----+ + ---------+ +--- +------+-------- -+ AO 11/17/2024 11:12:55 Rest 113 57 78 AM +----+ + ---------+ +--- +------+-------- -+ LV 11/17/2024 11:12:55 Rest 173 10 21 AM +----+ + ---------+ +--- +------+-------- -+ AO 11/17/2024 12:08:23 Rest 163 70 104 PM +----+ + ---------+ +--- +------+-------- -+ LV 11/17/2024 12:08:23 Rest 165 15 25 PM +----+ + ---------+ +--- +------+-------- -+ AO 11/17/2024 12:08:31 Rest 160 68 103 PM +----+ + ---------+ +--- +------+-------- -+ LV 11/17/2024 12:08:31 Rest 163 14 25 PM +----+ + ---------+ +--- +------+-------- -+ Complications: No vascular access complications were revealed. No bleeding events occurred during the procedure. No device related events. Cardiac Cath Post Procedure Notes: Post Procedure Diagnosis: S/p successful TAVR with Evolut FX+ 29 mm. Blood Loss: Estimated blood loss during the procedure was 10 mls. Specimens Removed: Number of specimen(s) removed: none. CONCLUSIONS: 1 (more content not included)... [facility] CBC W Auto Differential pane l (Bld)on 11-17-2024 Basophils (Bld) [#/Vol] 0.02 10*3/uL [facility] Basophils/100 WBC (Bld) 0.3 % 0.0 - 2.0 % [facility] Eosinophils (Bld) [#/Vol] 0.06 10*3/uL [facility] Eosinophils/100 WBC (Bld) 0.8 % 0.0 - 6.0 % [facility] Erythrocyte distribution width (RBC) [Ratio] 15.7 % High 11.5 - 14.5 % [facility] Hematocrit (Bld) [Volume fraction] 37.1 % Low 41.0 - 52.0 % [facility] Hemoglobin (Bld) [Mass/Vol] 11.8 g/dL Low 13.5 - 17.5 g/dL [facility] Immature granulocytes (Bld) [#/Vol] 0.05 10*3/uL [facility] Immature granulocytes/100 WBC (Bld) 0.7 % 0.0 - 0.9 % [facility] Comment on above: Immature Granulocyte Count (IG) includes promyelocytes, myelocytes and metamyelocytes but does not include bands. Percent differential counts (%) should be interpreted in the context of the absolute cell counts (cells/UL). Interpretation and review of laboratory results Abnormal [facility] Lymphocytes (Bld) [#/Vol] 0.65 10*3/uL Low [facility] Lymphocytes/100 WBC (Bld) 8.5 % 13.0 - 44.0 % [facility] MCH (RBC) [Entitic mass] 31.2 pg 26.0 - 34.0 pg [facility] MCHC (RBC) [Mass/Vol] 31.8 g/dL Low 32.0 - 36.0 g/dL [facility] MCV (RBC) [Entitic vol] 98 fL 80 - 100 fL [facility] Monocytes (Bld) [#/Vol] 0.52 10*3/uL [facility] Monocytes/100 WBC (Bld) 6.8 % 2.0 - 10.0 % [facility] Neutrophils (Bld) [#/Vol] 6.37 10*3/uL High [facility] Comment on above: Percent differential counts (%) should be interpreted in the context of the absolute cell counts (cells/uL). Neutrophils/100 WBC (Bld) 82.9 % 40.0 - 80.0 % [facility] Nucleated RBC/100 WBC (Bld) [Ratio] 0 % [facility] Platelets (Bld) [#/Vol] 132 10*3/uL Low [facility] RBC (Bld) [#/Vol] 3.78 10*6/uL [facility] WBC (Bld) [#/Vol] 7.7 10*3/uL [facility] Basophils (Bld) [#/Vol] 0.02 x10*3/uL Normal 0.00-0.10 [facility] Comment on above: Performed By: #### 5 7021-8 #### LUCRECIA Weiss ([id number]) [facility] ([facility]) [address] [place] [address] 56221 Basophils/100 WBC (Bld) 0.3 % Normal 0.0-2.0 [facility] Comment on above: Performed By: #### 5 7021-8 #### LUCRECIA Weiss ([id number]) [facility] ([facility]) [address] [place] [address] 73925 Eosinophils (Bld) [#/Vol] 0.06 x10*3/uL Normal 0.00-0.40 [facility] Comment on above: Performed By: #### 5 7021-8 #### LUCRECIA Weiss ([id number]) [facility] ([facility]) [address] [place] [address] 81658 Eosinophils/100 WBC (Bld) 0.8 % Normal 0.0-6.0 [facility] Comment on above: Performed By: #### 5 7021-8 #### LUCRECIA Weiss ([id number]) [facility] ([facility]) [address] [place] [address] 67967 Erythrocyte distribution width (RBC) [Ratio] 15.7 % High 11.5-14.5 [facility] Comment on above: Performed By: #### 5 7021-8 #### LUCRECIA Weiss ([id number]) [facility] ([facility]) [address] [place] [address] 73613 Hematocrit (Bld) [Volume fraction] 37.1 % Low 41.0-52.0 [facility] Comment on above: Performed By: #### 5 7021-8 #### LUCRECIA MORTON L ([id number]) [facility] ([facility]) [address] [place] [address] 26770 Hemoglobin (Bld) [Mass/Vol] 11.8 g/dL Low 13.5-17.5 [facility] Comment on above: Performed By: #### 5 7021-8 #### LUCRECIA Weiss ([id number]) [facility] ([facility]) [address] [place] [address] 83601 Immature granulocytes (Bld) [#/Vol] 0.05 x10*3/uL Normal 0.00-0.50 [facility] Comment on above: Performed By: #### 5 7021-8 #### LUCRECIA Weiss ([id number]) [facility] ([facility]) [address] [place] [address] 58157 Immature granulocytes/100 WBC (Bld) 0.7 % Normal 0.0-0.9 [facility] Comment on above: Result Comment: Vero ture Granulocyte Count (IG) includes promyelocytes, myelocytes and metamyelocytes but does not include bands. Percent differential counts (%) should be interpreted in the context of the absolute cell counts (cells/UL). Performed By: #### 5 7021-8 #### LUCRECIA Weiss ([id number]) [facility] ([facility]) [address] [place] [address] 24505 Lymphocytes (Bld) [#/Vol] 0.65 x10*3/uL Low 0.80-3.00 [facility] Comment on above: Performed By: #### 5 7021-8 #### LUCRECIA MORTON L ([id number]) [facility] ([facility]) [address] [place] [address] 01018 Lymphocytes/100 WBC (Bld) 8.5 % Normal 13.0-44.0 [facility] Comment on above: Performed By: #### 5 7021-8 #### LUCRECIA Weiss ([id number]) [facility] ([facility]) [address] [place] [address] 51133 MCH (RBC) [Entitic mass] 31.2 pg Normal 26.0-34.0 [facility] Comment on above: Performed By: #### 5 7021-8 #### LUCRECIA Weiss ([id number]) [facility] ([facility]) [address] [place] [address] 02126 MCHC (RBC) [Mass/Vol] 31.8 g/dL Low 32.0-36.0 [facility] Comment on above: Performed By: #### 5 7021-8 #### LUCRECIA Weiss ([id number]) [facility] ([facility]) [address] [place] [address] 10923 MCV (RBC) [Entitic vol] 98 fL Normal 80-100 [facility] Comment on above: Performed By: #### 5 7021-8 #### LUCRECIA Weiss ([id number]) [facility] ([facility]) [address] [place] [address] 92845 Monocytes (Bld) [#/Vol] 0.52 x10*3/uL Normal 0.05-0.80 [facility] Comment on above: Performed By: #### 5 7021-8 #### LUCRECIA Weiss ([id number]) [facility] ([facility]) [address] [place] [address] 97541 Monocytes/100 WBC (Bld) 6.8 % Normal 2.0-10.0 [facility] Comment on above: Performed By: #### 5 7021-8 #### LUCRECIA Weiss ([id number]) [facility] ([facility]) [address] [place] [address] 60902 Neutrophils (Bld) [#/Vol] 6.37 x10*3/uL High 1.60-5.50 [facility] Comment on above: Result Comment: Perc ent differential counts (%) should be interpreted in the context of the absolute cell counts (cells/uL). Performed By: #### 5 7021-8 #### LUCRECIA Weiss ([id number]) [facility] ([facility]) [address] [place] [address] 22118 Neutrophils/100 WBC (Bld) 82.9 % Normal 40.0-80.0 [facility] Comment on above: Performed By: #### 5 7021-8 #### LUCRECIA Weiss ([id number]) [facility] ([facility]) [address] [place] [address] 56951 Nucleated RBC/100 WBC (Bld) [Ratio] 0.0 /100 WBCs Normal 0.0-0.0 [facility] Comment on above: Performed By: #### 5 7021-8 #### LUCRECIA Weiss ([id number]) [facility] ([facility]) [address] [place] [address] 27629 Platelets (Bld) [#/Vol] 132 x10*3/uL Low 150-450 [facility] Comment on above: Performed By: #### 5 7021-8 #### LUCRECIA Weiss ([id number]) [facility] ([facility]) [address] [place] [address] 47259 RBC (Bld) [#/Vol] 3.78 x10*6/uL Low 4.50-5.90 [facility] Comment on above: Performed By: #### 5 7021-8 #### LUCRECIA Weiss ([id number]) [facility] ([facility]) [address] [place] [address] 20574 WBC (Bld) [#/Vol] 7.7 x10*3/uL Normal 4.4-11.3 [facility] Comment on above: Performed By: #### 5 7021-8 #### LUCRECIA Weiss ([id number]) [facility] ([facility]) [address] [place] [address] 57497 Coagulation tissue factor in ducedon 11-17-2024 PT Coag (PPP) [Time] 15.3 s High 9.8-12.4 [facility] Comment on above: Performed By: #### 5 902-2 #### LUCRECIA Weiss ([id number]) [facility] ([facility]) [address] [place] [address] ECG 12-LEADon 11-17-2024 ECG 12-LEAD Ventricular Rate 70 Atrial Rate 98 QRS Duration 166 Q-T Interval 480 QTC Calculation(Bazett) 518 R Ponderosa -84 T Ponderosa 96 QRS Count 12 Q Onset 198 T Offset 438 QTC Fredericia 505 Diagnosis Wide QRS rhythm Left axis deviation Right bundle branch block Inferior infarct , age undetermined Abnormal ECG When compared with ECG of 17-NOV-2024 12:47, No significant change was found Normal [facility] ECG 12-LEAD Ventricular Rate 70 Atrial Rate 70 P-R Interval 312 QRS Duration 170 Q-T Interval 468 QTC Calculation(Bazett) 505 P Ponderosa 91 R Ponderosa -83 T Ponderosa 92 QRS Count 11 Q Onset 196 T Offset 430 QTC Fredericia 492 Diagnosis Sinus rhythm with 1st degree AV block with frequent ventricular-paced complexes Left axis deviation Nonspecific intraventricular block Inferior infarct , age undetermined Cannot rule out Anterior infarct , age undetermined Abnormal ECG No previous ECGs available Confirmed by Jason Zapien ([id number]) on 11/20/2024 5:19:28 PM Normal [facility] Magnesiumon 11-17-2024 Magnesium [Mass/Vol] 2.03 mg/dL 1.60 - 2.40 mg/dL [facility] Magnesium [Mass/Vol] 2.03 mg/dL Normal 1.60-2.40 [facility] Comment on above: Performed By: #### 1 9123-9 #### LUCRECIA Weiss ([id number]) [facility] ([facility]) [address] [place], [place] [address] Magnesium [Mass/Vol]on 11-17 Interpretation and review of laboratory results Normal [facility] No Panel Informationon 11-17 [facility] PT Coag (PPP) [Time]on 11-17 INR Coag (PPP) [Relative time] 1.4 {INR} High 0.9 - 1.1 [facility] Interpretation and review of laboratory results Abnormal [facility] INR Coag (PPP) [Relative time] 1.4 High 0.9-1.1 [facility] Comment on above: Performed By: #### 5 902-2 #### LUCRECIA Weiss ([id number]) [facility] ([facility]) [address] [place] [address] Protime-INRon 11-17-2024 PT Coag (PPP) [Time] 15.3 s High [facility] TRANSTHORACIC ECHO (TTE) HUGGINS ITEDon 11-17-2024 TRANSTHORACIC ECHO (TTE) [facility], [address] [place] [address] and TRANSTHORACIC ECHOCARDIOGRAM REPORT Patient Name: ALAN ROTH Reading Physician: [id number] Alex Chisholm MD Study Date: 11/17/2024 Ordering Provider: [id number] AMANDA WARD MRN/PID: [id number] Fellow: [id number] Wesley Bruno MD Nurse: Date of /Age: 2 1945 Extract Puller: Mike wang [facility] Gender assigned at M Additional Staff: Dre Broussard : [facility] Height: 154.94 cm Admit Date: Weight: 83.46 kg Admission Status: Inpatient - Routine BSA / BMI: 1.82 m2 / 34.77 kg/m2 Blood Pressure: 124/70 mmHg Department Location: [facility] Director Of Group Sales Study Type: TRANSTHORACIC ECHO (TTE) LIMITED Diagnosis/ICD: Nonrheumatic aortic (valve) stenosis-I35.0 Indication: TAVR periprocedure CPT Code: Echo Limited-39885; Doppler Limited-31860; Color Doppler-48120 Patient History: Valve Disorders: Aortic Stenosis. Pertinent History: HLD, HTN, CAD s/p PCI, COPD on home O2, moderate PHTN, permanent Afib on Eliquis, SSS s/p PPM. Study Detail: The following Echo studies were performed: 2D. Technically challenging study due to body habitus. PHYSICIAN INTERPRETATION: Left Ventricle: The left ventricular systolic function is normal, with a visually estimated ejection fraction of 60-65%. There are no regional left ventricular wall motion abnormalities. The left ventricular cavity size is normal. There is normal septal and normal posterior left ventricular wall thickness. There is no evidence of left ventricular hypertrophy. Left ventricular diastolic filling cannot be determined due to severe mitral annular calcification (MAC). Left Atrium: The left atrial size is moderate to severely dilated. Right Ventricle: The right ventricle is mildly enlarged. There is normal right ventricular global systolic function. A device is visualized in the right ventricle. Right Atrium: The right atrium is mildly dilated. There is a device visualized in the right atrium. Aortic Valve: The aortic valve is probably trileaflet. There is severe aortic valve cusp calcification. There is severe aortic valve thickening. There is evidence of severe aortic valve stenosis. The aortic valve dimensionless index is 0.16. There is mild aortic valve regurgitation. The peak instantaneous gradient of the aortic valve is 88 mmHg. The mean gradient of the aortic valve is 55 mmHg. Mitral Valve: The mitral valve is mildly thickened. There is moderate to severe mitral annular calcification. There is mild mitral valve regurgitation. Tricuspid Valve: The tricuspid valve is structurally normal. There is moderate tricuspid regurgitation. Pulmonic Valve: The pulmonic valve is not well visualized. There is trace pulmonic valve regurgitation. Pericardium: Trivial to small pericardial effusion. Aorta: The aortic root was not well visualized. Pulmonary Artery: The tricuspid regurgitant velocity is 3.07 m/s, and with an estimated right atrial pressure of 15 mmHg, the estimated pulmonary artery pressure is moderately elevated with the RVSP at 52.7 mmHg. Systemic Veins: The inferior vena cava appears mildly dilated, with IVC inspiratory collapse less than 50%. In comparison to the previous echocardiogram(s): Compared with study dated 10/13/2024, the pre TAVR images showed no significant change from prior, as for post TAVR, there is reduced max velocity along with normalizing gradients across the prosthetic aortic valve. Post Transcatheter Aortic Valve Placement (TAVR): The peak instantaneous gradient of the aortic valve is 9.0 mmHg. The mean gradient of the aortic valve is 5.0 mmHg. There is a Medtronic FX transcatheter aortic valve replacement, with a 29 mm reported size. The left ventricular systolic function is normal. The left ventricular cavity size is normal. There is mild mitral valve regurgitation. There is mild luciana-prosthetic aortic valve regurgitation. CONCLUSIONS: 1. The left ventricular systolic function is normal, with a visually estimated ejection fraction of 60-65%. 2. There is no evidence of left ventricular hypertrophy. 3. There is normal right ventricular global systolic function. 4. Mildly enlarged right ventricle. 5. The left atrial size is moderate to severely dilated. 6. There is moderate to severe mitral annular calcification. 7. Moderate tricuspid regurgitation visualized. 8. Severe aortic valve stenosis. 9. There is a Medtronic FX transcatheter aortic valve replacement, with a 29 mm reported size. 10. There is severe aortic valve cusp calcification. 11. There is severe aortic valve thickening. 12. Mild aortic valve regurgitation. 13. Moderately elevated pulmonary artery pressure. 14. The inferior vena cava appears mildly dilated, with IVC inspiratory collapse less than 50%. RECOMMENDATIONS: Utilizing an FDA cleared automated machine learning algorithm ([employer] F (more content not included)... Normal [facility] Heart TransthoracicOrdere d By: Alex Chisholm on 11-17-2024 Aortic Valve Area by Continuity of Peak Velocity 0.51 cm2 [facility] Work Phone: Aortic Valve Area by Continuity of VTI 0.51 cm2 [facility] Work Phone: 800 AV mn grad 55 mmHg [facility] Work Phone: 800 AV pk grad 88 mmHg [facility] Work Phone: AV pk negar 4.7 m/s [facility] Work Phone: LV A4C EF 73.5 [facility] Work Phone: 800 LV EF 63 % [facility] Work Phone: 1 800 LVIDd 4.8 cm [facility] Work Phone: 800 LVOT diam 2 cm [facility] Work Phone: 1 800 RVSP 52.7 mmHg [facility] Work Phone: 1 [facility] Work Phone: [phone] US Heart Transthoracicon [facility], [address] [place] [address] and TRANSTHORACIC ECHOCARDIOGRAM REPORT Patient Name: ALAN ROTH Reading Physician: [id number] Alex Chisholm MD Study Date: 11/17/2024 Ordering Provider: [id number] AMANDA WARD MRN/PID: [id number] Fellow: [id number] Wesley Bruno MD Nurse: Date of /Age: 2 1945 Extract Puller: Mike wang RDCS Gender assigned at M Additional Staff: Dre Broussard : RDCS Height: 154.94 cm Admit Date: Weight: 83.46 kg Admission Status: Inpatient - Routine BSA / BMI: 1.82 m2 / 34.77 kg/m2 Blood Pressure: 124/70 mmHg Department Location: [facility] Director Of Group Sales Study Type: TRANSTHORACIC ECHO (TTE) LIMITED Diagnosis/ICD: Nonrheumatic aortic (valve) stenosis-I35.0 Indication: TAVR periprocedure CPT Code: Echo Limited-34796; Doppler Limited-01109; Color Doppler-16397 Patient History: Valve Disorders: Aortic Stenosis. Pertinent History: HLD, HTN, CAD s/p PCI, COPD on home O2, moderate PHTN, permanent Afib on Eliquis, SSS s/p PPM. Study Detail: The following Echo studies were performed: 2D. Technically challenging study due to body habitus. PHYSICIAN INTERPRETATION: Left Ventricle: The left ventricular systolic function is normal, with a visually estimated ejection fraction of 60-65%. There are no regional left ventricular wall motion abnormalities. The left ventricular cavity size is normal. There is normal septal and normal posterior left ventricular wall thickness. There is no evidence of left ventricular hypertrophy. Left ventricular diastolic filling cannot be determined due to severe mitral annular calcification (MAC). Left Atrium: The left atrial size is moderate to severely dilated. Right Ventricle: The right ventricle is mildly enlarged. There is normal right ventricular global systolic function. A device is visualized in the right ventricle. Right Atrium: The right atrium is mildly dilated. There is a device visualized in the right atrium. Aortic Valve: The aortic valve is probably trileaflet. There is severe aortic valve cusp calcification. There is severe aortic valve thickening. There is evidence of severe aortic valve stenosis. The aortic valve dimensionless index is 0.16. There is mild aortic valve regurgitation. The peak instantaneous gradient of the aortic valve is 88 mmHg. The mean gradient of the aortic valve is 55 mmHg. Mitral Valve: The mitral valve is mildly thickened. There is moderate to severe mitral annular calcification. There is mild mitral valve regurgitation. Tricuspid Valve: The tricuspid valve is structurally normal. There is moderate tricuspid regurgitation. Pulmonic Valve: The pulmonic valve is not well visualized. There is trace pulmonic valve regurgitation. Pericardium: Trivial to small pericardial effusion. Aorta: The aortic root was not well visualized. Pulmonary Artery: The tricuspid regurgitant velocity is 3.07 m/s, and with an estimated right atrial pressure of 15 mmHg, the estimated pulmonary artery pressure is moderately elevated with the RVSP at 52.7 mmHg. Systemic Veins: The inferior vena cava appears mildly dilated, with IVC inspiratory collapse less than 50%. In comparison to the previous echocardiogram(s): Compared with study dated 10/13/2024, the pre TAVR images showed no significant change from prior, as for post TAVR, there is reduced max velocity along with normalizing gradients across the prosthetic aortic valve. Post Transcatheter Aortic Valve Placement (TAVR): The peak instantaneous gradient of the aortic valve is 9.0 mmHg. The mean gradient of the aortic valve is 5.0 mmHg. There is a Medtronic FX transcatheter aortic valve replacement, with a 29 mm reported size. The left ventricular systolic function is normal. The left ventricular cavity size is normal. There is mild mitral valve regurgitation. There is mild luciana-prosthetic aortic valve regurgitation. CONCLUSIONS: 1. The left ventricular systolic function is normal, with a visually estimated ejection fraction of 60-65%. 2. There is no evidence of left ventricular hypertrophy. 3. There is normal right ventricular global systolic function. 4. Mildly en (more content not included)... Alex Carlisle M D - 11/17/2024 [facility], [address] [place] [address] and TRANSTHORACIC ECHOCARDIOGRAM REPORT Patient Name: ALAN ROTH Reading Physician: [id number] Alex Chisholm MD Study Date: 11/17/2024 Ordering Provider: [id number] AMANDA WARD MRN/PID: [id number] Fellow: [id number] Wesley Bruno MD Nurse: Date of /Age: 2 1945 / 79 Extract Puller: Mike Drivernelsy wang RDCS Gender assigned at Additional Staff: Dre Broussard : RDCS Height: 154.94 cm Admit Date: Weight: 83.46 kg Admission Status: Inpatient - Routine BSA / BMI: 1.82 m2 / 34.77 kg/m2 Blood Pressure: 124/70 mmHg Department Location: [facility] Director Of Group Sales Study Type: TRANSTHORACIC ECHO (TTE) LIMITED Diagnosis/ICD: Nonrheumatic aortic (valve) stenosis-I35.0 Indication: TAVR periprocedure CPT Code: Echo Limited-66941; Doppler Limited-97257; Color Doppler-08900 Patient History: Valve Disorders: Aortic Stenosis. Pertinent History: HLD, HTN, CAD s/p PCI, COPD on home O2, moderate PHTN, permanent Afib on Eliquis, SSS s/p PPM. Study Detail: The following Echo studies were performed: 2D. Technically challenging study due to body habitus. PHYSICIAN INTERPRETATION: Left Ventricle: The left ventricular systolic function is normal, with a visually estimated ejection fraction of 60-65%. There are no regional left ventricular wall motion abnormalities. The left ventricular cavity size is normal. There is normal septal and normal posterior left ventricular wall thickness. There is no evidence of left ventricular hypertrophy. Left ventricular diastolic filling cannot be determined due to severe mitral annular calcification (MAC). Left Atrium: The left atrial size is moderate to severely dilated. Right Ventricle: The right ventricle is mildly enlarged. There is normal right ventricular global systolic function. A device is visualized in the right ventricle. Right Atrium: The right atrium is mildly dilated. There is a device visualized in the right atrium. Aortic Valve: The aortic valve is probably trileaflet. There is severe aortic valve cusp calcification. There is severe aortic valve thickening. There is evidence of severe aortic valve stenosis. The aortic valve dimensionless index is 0.16. There is mild aortic valve regurgitation. The peak instantaneous gradient of the aortic valve is 88 mmHg. The mean gradient of the aortic valve is 55 mmHg. Mitral Valve: The mitral valve is mildly thickened. There is moderate to severe mitral annular calcification. There is mild mitral valve regurgitation. Tricuspid Valve: The tricuspid valve is structurally normal. There is moderate tricuspid regurgitation. Pulmonic Valve: The pulmonic valve is not well visualized. There is trace pulmonic valve regurgitation. Pericardium: Trivial to small pericardial effusion. Aorta: The aortic root was not well visualized. Pulmonary Artery: The tricuspid regurgitant velocity is 3.07 m/s, and with an estimated right atrial pressure of 15 mmHg, the estimated pulmonary artery pressure is moderately elevated with the RVSP at 52.7 mmHg. Systemic Veins: The inferior vena cava appears mildly dilated, with IVC inspiratory collapse less than 50%. In comparison to the previous echocardiogram(s): Compared with study dated 10/13/2024, the pre TAVR images showed no significant change from prior, as for post TAVR, there is reduced max velocity along with normalizing gradients across the prosthetic aortic valve. Post Transcatheter Aortic Valve Placement (TAVR): The peak instantaneous gradient of the aortic valve is 9.0 mmHg. The mean gradient of the aortic valve is 5.0 mmHg. There is a Medtronic FX transcatheter aortic valve replacement, with a 29 mm reported size. The left ventricular systolic function is normal. The left ventricular cavity size is normal. There is mild mitral valve regurgitation. There is mild luciana-prosthetic aortic valve regurgitation. CONCLUSIONS: 1. The left ventricular systolic function is normal, with a visually estimated ejection fraction of 60-65%. 2. There is no evidence of left ventricular hypertrophy. 3. There is normal right ventricular global systolic function. 4. Mildly enlarged right ventricle. 5. The left atrial size is moderate to severely dilated. 6. There is moderate to severe mitral annular calcification. 7. Moderate tricuspid regurgitation visualized. 8. Severe aortic valve stenosis. 9. There is a Medtronic FX transcatheter aortic valve replacement, with a 29 mm reported size. 10. There is severe aortic valve cusp calcification. 11. There is severe aortic valve thickening. 12. Mild aortic valve regurgitation. 13. Moderately elevated pulmonary artery pressure. 14. The inferior vena cava appears mildly dilated, with IVC inspiratory collapse less (more content not included)... [facility] Work Phone: VERAB/VERIFY ABORHon [phone] ABO group Nom (Bld) O [facility] Comment on above: Performed By: #### V ERAB #### LUCRECIA Weiss ([id number]) [facility] ([facility]) [address] [place] [address] D Ag Ql (Bld) Negative [facility] Comment on above: Performed By: #### V ERAB #### LUCRECIA Weiss ([id number]) [facility] ([facility]) [address] [place] [address] XR CHEST 1 VIEWon 11-17-2024 XR CHEST 1 VIEW Interpreted By: Karlo Larios, STUDY: XR CHEST 1 VIEW; 11/17/2024 2:38 pm INDICATION: Signs/Symptoms:s/p valve procedure. COMPARISON: CT dated 11/09/2024 ACCESSION NUMBER(S): [id number] ORDERING CLINICIAN: AMANDA WARD FINDINGS: AP radiograph of the chest was provided. Status post TAVR. Left chest wall pacer device is noted with lead tips projecting over the right atrial appendage and right ventricle. CARDIOMEDIASTINAL SILHOUETTE: Cardiomediastinal silhouette is normal in size and configuration. LUNGS: The costophrenic angles are excluded from the field of view. Upper lung predominant emphysema is again seen. There appears to be a new hazy right upper lobe airspace opacity. No evidence of pneumothorax. ABDOMEN: No remarkable upper abdominal findings. BONES: No acute osseous changes. IMPRESSION: 1. Hazy right upper lobe airspace opacity could represent atelectasis from mucous plugging though developing pneumonia is not excluded. 2. Status post TAVR. MACRO: None Signed by: Karlo Moreno 11/18/2024 7:01 AM Dictation workstation: [id number] [facility] XR Chest Single viewon 11-17 Radiology Study observation (narrative) [facility] Work Phone: CT TAVR FULL CONTRAST CHEST ABDOMEN PELVISon 11-09-2024 CT TAVR FULL CONTRAST CHEST ABDOMEN PELVIS Interpreted By: Axel Richardson, ADDENDUM: NON-CARDIOVASCULAR CHEST FINDINGS LUNGS / AIRSPACES / AIRWAYS: Airways: The trachea and central major airways are clear; no endobronchial filling defect. Lungs / airspaces: Severe bullous emphysema in the left lower lobe, moderate to severe everywhere else. No sign of active infection or neoplasm. A scar in the left upper lobe with rounded contours is unchanged going back over two years at least PLEURA: Effusion: Both sides negative Pneumothorax: Both sides negative Other: n/a NONVASCULAR MEDIASTINUM: Esophagus: Grossly normal by CT Mediastinal Mass: Negative Hiatal hernia: None LYMPH NODES: No thoracic adenopathy CHEST WALL: Soft tissues of the chest wall are unremarkable THORACIC SKELETON: No acute or contributory abnormality ------- NON-CARDIOVASCULAR ABDOMINAL/PELVIC FINDINGS Evaluation of solid organs is limited due to arterial phase contrast bolus timing LIVER: Normal. No enlargement or evidence of cirrhosis or fatty change. No mass or other suspect lesion. SPLEEN: Normal. No enlargement, mass or evidence of splenic vein thrombosis. PANCREAS: Normal. No CT evidence of acute or chronic pancreatitis. No duct dilation. No mass. GALLBLADDER: Normal CT appearance. No dilation, calcified, or gas-containing stones. Other types of gallstones could be occult on CT and detectable only by ultrasound. BILE DUCTS: Normal. No biliary duct dilation. ADRENAL GLANDS: Normal. No nodule or mass. KIDNEYS AND URETERS: Right kidney has one small simple cysts. Both kidneys have one or two subcentimeter too small to characterize but likely benign low-attenuation lesion. No mass suspect for neoplasm, stone (only vascular calcifications mimicking stones) or hydronephrosis on either side LYMPH NODES: No adenopathy, intraperitoneal, retroperitoneal, pelvic or otherwise APPENDIX: Normal. Not dilated, thick walled or in any other way inflamed in appearance. No inflammatory change about the appendix. COLON: Distal diverticulosis without acute inflammatory change; otherwise, normal. No sign of acute diverticulitis or other colitis. No annular constricting mass. SMALL BOWEL: Normal. No small bowel dilation or any other sign of small bowel obstruction. No sign of active inflammatory bowel disease. STOMACH / DUODENUM: Grossly normal by CT which has limited sensitivity and specificity for the stomach and duodenum. RETROPERITONEUM: Normal. No acute hemorrhage or inflammatory change. Lymph nodes in a separate dedicated section. OMENTUM, MESENTERY AND PERITONEAL SPACES: Free intraperitoneal air: Negative Free intraperitoneal fluid: Negative Abscess: Negative Other: n/a URINARY BLADDER: Borderline circumferential wall thickening but no surrounding acute inflammatory change, probably from chronic urinary bladder outlet impairment PELVIS: Transverse diameter of the prostate is approximately 5.2 cm ABDOMINAL WALL: Hernia: Negative Other: No acute or contributory abnormality. ABDOMINAL AND PELVIC SKELETON: No acute or contributory abnormality ------- NON-CARDIOVASCULAR IMPRESSION FOR CHEST, ABDOMEN AND PELVIS NO ACUTE UNEXPECTED FINDINGS IN THE CHEST, ABDOMEN OR PELVIS OUTSIDE THE CARDIOVASCULAR SYSTEM NOTE THIS ADDENDUM IS SOLELY FOR INTERPRETATION OF ANATOMY OUTSIDE THE CARDIOVASCULAR SYSTEM. INTERPRETATION OF AND REPORTING OF THE CARDIOVASCULAR STRUCTURES ARE THE SOLE RESPONSIBILITY OF THE PAMPHLET DISTRIBUTOR SUBMITTING THE ORIGINAL REPORT (NOT THIS ADDENDUM) Signed by: Axel Richardson 11/13/2024 10:59 AM -------- ORIGINAL REPORT -------- Dictation workstation: [id number] Interpreted By: Silas Jacobson, STUDY: CT TAVR FULL CONTRAST CHEST ABDOMEN PELVIS; 11/09/2024 9:55 am INDICATION: Signs/Symptoms:aortic stenosis, chest discomfort, dyspnea, -75-38 Echo: OSWALDO 0.7. COMPARISON: None. ACCESSION NUMBER(S): [id number] ORDERING CLINICIAN: AMANDA WARD TECHNIQUE: Multi-detector CT technology was employed Lakeisha CT 64-slice scanner. Helical multidetector acquisition of the chest with retrospective gating and minimal slice thickness was performed prior to and following the intravenous administration of contrast material. Subsequently, contrast enhanced CT examination of the abdomen and pelvis was obtained. A low-osmolar contrast agent was used 100ml of Omnipaque 350. Using prospective ECG gating, CT scan of the aortic valve was performed without intravenous contrast. Aortic valve calcium scoring was performed according to the method of Agatston. For optimization of anatomic evaluation, multiplanar reconstruction, maximum intensity projections, and advanced 3-D off-line postprocessing were performed on a dedicated stand-alone workstation under the direct supervision of the interpreting physician. CT Dose-Length Product (more content not included)... [facility] Cholesterol [Mass/volume] in Serum or PlasmaOrdered By: Danilo Gardner on 10-24-2024 Cholesterol [Mass/Vol] Cholesterol [Mass /volume] in Serum or Plasma Low 140-200 [facility] Comment on above: Chol less than 200 m g/dl low riskChol 201-239 mg/dl borderline riskChol 240 mg/dl and greater high risk Cholesterol in HDL [Mass/vol ume] in Serum or PlasmaOrdered By: Danilo Gardner on 10-24-2024 Cholesterol in HDL [Mass/Vol] Serum or plasma high density lipoprotein (HDL) cholesterol measurement 23- [facility] Comment on above: HDL CHOL ATP-III CLA SSIFICATION Cardiovascular RiskHDL > or equal to 60 mg/dL LOWHDL < 40 mg/dL HIGH Cholesterol in LDL Calc [Mas s/Vol]Ordered By: Danilo Gardner on 10-24-2024 Cholesterol in LDL [Mass/Vol] Cholesterol in LDL [Mass/volume] in Serum or Plasma by calculation 0-100 [facility] Comment on above: LDL ATP III CLASSIFI CATIONLDL less than 100 mg/dL OptimalLDL 100-129 mg/dL Near or above optimalLDL 130-159 mg/dL Borderline highLDL 160-189 mg/dL HighLDL greater than 189 mg/dL Very high Cholesterol in VLDL Calc [Ma ss/Vol]Ordered By: Danilo Gardner on 10-24-2024 Cholesterol in VLDL [Mass/Vol] Cholesterol in VLDL [Mass/volume] in Serum or Plasma by calculation [facility] Coagulation Profileon 2024 aPTT Coag (Bld) [Time] 41.0 s High 25.1-36.5 [facility] Comment on above: Result Comment: A he matocrit value greater than 55% may lead to inaccurate results in coagulation testing. Patients having hematocrit values >55% require a special collection tube for coagulation studies. Please contact the laboratory at [phone] for redraw instructions. PERFORMED BY: [place] [address] PATHOLOGIST TUBE FORMER OPERATOR TERRI MCMANUS M.D. Performed By: #### L IPID, PP #### [address] INR Coag (PPP) [Relative time] 1.4 {INR} Normal [facility] Comment on above: Result Comment: INR Therapeutic Range A) Pre- and Peroperative OAT started two weeks before surgery. NOT HIP SURGERY: 1.5 - 2.5 HIP SURGERY: 2 - 3 B) Primary and secondary prevention of venous THROMBOSIS: 2 - 3 C) Active venous thrombosis, pulmonary embolism and prevention of recurrent venous thrombosis: 2 - 3 D) Prevention of arterial thromboembolism including patients with mechanical heart valves: 3 - 4.5 Performed By: #### L IPID, PP #### [facility] [id number] [facility] PT Coag (PPP) [Time] 16.2 s High 9.0-12.9 [facility] Comment on above: Result Comment: A he matocrit value greater than 55% may lead to inaccurate results in coagulation testing. Patients having hematocrit values >55% require a special collection tube for coagulation studies. Please contact the laboratory at [phone] for redraw instructions. Performed By: #### L IPID, PP #### [address] [place] [id number] [facility] ECG 12 lead ECGon 10-24-2024 ECG 12 lead ECG [facility] [place] [address] Electrocardiograph Report Signed Patient: Alan Roth MR#: [id number] 91 : 1945 Acct:[id number] Age/Sex: 79 / M ADM Date: 10/24/24 Loc: Room: Type: [facility] Attending Dr: Danilo Gardner MD Ordering Provider: Danilo Gardner MD, [facility] Date of Service: 10/24/2403/12/1027 ECG/ECG 12 lead ECG: pre op Copies to: Test Reason : Blood Pressure : */* mmHG Vent. Rate : 70 BPM Atrial Rate : 81 BPM P-R Int : * ms QRS Dur : 164 ms QT Int : 464 ms P-R-T Axes : * -84 93 degrees QTcB Int : 501 ms Ventricular-paced rhythm Abnormal ECG When compared with ECG of 06-Nov-2021 08:12, Vent. rate has decreased by 4 bpm Confirmed by Danilo Sears ([id number]) on 10/25/2024 10:55:20 AM Referred By: Electronically Signed By: Danilo Sears Transcribed By: MUS Signed By Danilo Sears MD 10/25/24 1055 Normal [facility] INR in Platelet poor plasma by Coagulation assayOrdered By: Danilo Gardner on 10-24-2024 INR Coag (PPP) [Relative time] INR in Platelet poor plasma by Coagulation assay [facility] Comment on above: INR Therapeutic Rang [...] with mechanical heart valves: 3 - 4.5 Lipid Panelon 10-24-2024 Cholesterol [Mass/Vol] 125 mg/dL Low 140-200 [facility] Comment on above: Result Comment: Chol less than 200 mg/dl low risk Chol 201-239 mg/dl borderline risk Chol 240 mg/dl and greater high risk Performed By: #### L IPID, PP #### [facility] [address] Cholesterol in HDL [Mass/Vol] 44 mg/dL Normal 23-92 [facility] Comment on above: Result Comment: HDL CHOL ATP-III CLASSIFICATION Cardiovascular Risk HDL > or equal to 60 mg/dL LOW HDL < 40 mg/dL HIGH Performed By: #### L IPID, PP #### [facility] [address] Cholesterol.total/Chol esterol in HDL [Mass ratio] 2.8 {ratio} Normal <5.0 [facility] Comment on above: Result Comment: PERF ORMED BY: [place] [address] PATHOLOGIST TUBE FORMER OPERATOR TERRI MCMANUS M.D. Performed By: #### L IPID, PP #### [facility] [address] [place] [address] LDL Cholesterol,Calculated 73 mg/dL Normal 0-100 [facility] Comment on above: Result Comment: LDL ATP III CLASSIFICATION LDL less than 100 mg/dL Optimal LDL 100-129 mg/dL Near or above optimal LDL 130-159 mg/dL Borderline high LDL 160-189 mg/dL High LDL greater than 189 mg/dL Very high Performed By: #### L IPID, PP #### [facility] [address] Triglyceride w/Reflex 40 mg/dL Normal 0-149 [facility] Comment on above: Result Comment: TRIG ATP III CLASSIFICATION TRIG less than 150 mg/dL Normal TRIG 150-199 mg/dL Borderline high TRIG 200-500 mg/dL High TRIG greater than 500 mg/dL Very high Standard traceable to the Center for Disease Conrtrol and Prevention (CDC) test method. Performed By: #### L IPID, PP #### [facility] [address] VLDL CHOLESTEROL 8 mg/dL Normal [facility] Comment on above: Performed By: #### L IPID, PP #### [facility] [address] Prothrombin time (PT)Ordered By: Danilo Gardner on 10-24-2024 PT Coag (PPP) [Time] Prothrombin time (PT) High 9.0- 12.9 [facility] Comment on above: A hematocrit value g reater than 55% may lead to inaccurate results in coagulation testing. Patients having hematocrit values >55% require a special collection tube for coagulation studies. Please contact the laboratory at [phone] for redraw instructions. Serum or plasma total choles terol/high density lipoprotein (HDL) cholesterol mass ratOrdered By: Danilo Gardner on 10-24-2024 Cholesterol.total/Chol esterol in HDL [Mass ratio] Serum or plasma total cholesterol/high density lipoprotein (HDL) cholesterol mass rat <5.0 [facility] Triglyceride [Mass/volume] i n Serum or PlasmaOrdered By: Danilo Gardner on 10-24-2024 Triglyceride [Mass/Vol] Triglyceride [Mass/volume] in Serum or Plasma 0-149 [facility] Comment on above: TRIG ATP III CLASSIF ICATIONTRIG less than 150 mg/dL NormalTRIG 150-199 mg/dL Borderline highTRIG 200-500 mg/dL High TRIG greater than 500 mg/dL Very highStandard traceable to the Center for Disease Conrtrol and Prevention (CDC) test method. aPTT in Platelet poor plasma by Coagulation assayOrdered By: Danilo Gardner on 10-24-2024 aPTT Coag (PPP) [Time] Activated partial thromboplastin time (aPTT) in platelet poor plasma by coagulation a High 25.1-36.5 [facility] Comment on above: A hematocrit value g reater than 55% may lead to inaccurate results in coagulation testing. Patients having hematocrit values >55% require a special collection tube for coagulation studies. Please contact the laboratory at [phone] for redraw instructions. Basophils Auto (Bld) [#/Vol] on 10-19-2024 Basophils (Bld) [#/Vol] Automated basophil count 0.0-0.1 [facility] Basophils/100 WBC Auto (Bld) on 10-19-2024 Basophils/100 WBC (Bld) Automated basophil % 0.2-2.0 [facility] Eosinophils/100 WBC Auto (Bl d)on 10-19-2024 Eosinophils/100 WBC (Bld) Automated eosinophil % 0.9-7.0 [facility] Erythrocyte distribution wid th Auto (RBC) [Ratio]on 10-19-2024 Erythrocyte distribution width (RBC) [Ratio] Erythrocyte distribution width [Ratio] by Automated count High 11.0-15.0 [facility] Estimated glomerular filtrat ion rate (GFR) non- Americanon 10-19-2024 GFR/1.73 sq M.predicted among non-blacks MDRD (S/P/Bld) [Vol rate/Area] Estimated glomerular filtration rate (GFR) non- >=60 mL/min/1.7 3m 2 [facility] Hematocrit Auto (Bld) [Volum e fraction]on 10-19-2024 Hematocrit (Bld) [Volume fraction] Hematocrit [Volume Fraction] of Blood by Automated count 42.0-54.0 [facility] Hemoglobin [Mass/volume] in Bloodon 10-19-2024 Hemoglobin (Bld) [Mass/Vol] Hemoglobin [Mass/volume] in Blood 14.0-18.0 [facility] Laboratory - Chemistry and C hemistry - challengeon 10-19-2024 Albumin [Mass/Vol] 3.8 g/dL 3.4-5.0 [facility] Calcium [Mass/Vol] 9.0 mg/dL 8.5-10.1 [facility] Chloride [Moles/Vol] 107 mmol/L 98-107 [facility] CO2 [Moles/Vol] 28.9 mmol/L 21.0-32.0 [facility] Creatinine [Mass/Vol] 1.09 mg/dL 0.70-1.30 [facility] GFR/1.73 sq M.predicted MDRD (S/P/Bld) [Vol rate/Area] mL/min/{1.73_m2} >=60 mL/min/1.7 3m 2 [facility] Glucose [Mass/Vol] 107 mg/dL High 74-106 [facility] Potassium [Moles/Vol] 3.6 mmol/L 3.5-5.1 [facility] Sodium [Moles/Vol] 145 mmol/L 136-145 [facility] Urea nitrogen [Mass/Vol] 21.0 mg/dL High 7.0-18.0 [facility] Urea nitrogen/Creatinine [Mass ratio] 19.3 mg/mg [facility] Laboratory - Hematology and Cell countson 10-19-2024 Immature granulocytes/100 WBC (Bld) 0.4 % 0.0-0.5 [facility] Leukocytes [#/volume] correc clarita for nucleated erythrocytes in Blood by Automated counon 10-19-2024 WBC corrected for nucl RBC Auto (Bld) [#/Vol] Leukocytes [#/volume] corrected for nucleated erythrocytes in Blood by Automated coun 4.0-11.0 [facility] Lymphocytes Auto (Bld) [#/Vo l]on 10-19-2024 Lymphocytes (Bld) [#/Vol] Lymphocytes [#/volume] in Blood by Automated count 1.2-3.8 [facility] Lymphocytes/100 WBC Auto (Bl d)on 10-19-2024 Lymphocytes/100 WBC (Bld) Lymphocytes/100 leukocytes in Blood by Automated count 20.5-60.0 [facility] MCH Auto (RBC) [Entitic mass ]on 10-19-2024 MCH (RBC) [Entitic mass] MCH [Entitic mass] by Automated count 25.9-34.0 [facility] MCHC Auto (RBC) [Mass/Vol]on 10-19-2024 MCHC (RBC) [Mass/Vol] MCHC [Mass/volume] by Automated count 29.9-35.2 [facility] MCV Auto (RBC) [Entitic vol] on 10-19-2024 MCV (RBC) [Entitic vol] MCV [Entitic volume] by Automated count High 80.0-94.0 [facility] Monocytes Auto (Bld) [#/Vol] on 10-19-2024 Monocytes (Bld) [#/Vol] Automated blood monocyte count 0.3-0.8 [facility] Monocytes/100 WBC Auto (Bld) on 10-19-2024 Monocytes/100 WBC (Bld) Automated monocyte % 1.7-12.0 [facility] Neutrophils Auto (Bld) [#/Vo l]on 10-19-2024 Neutrophils (Bld) [#/Vol] Neutrophils [#/volume] in Blood by Automated count 1.4-6.5 [facility] Neutrophils/100 WBC Auto (Bl d)on 10-19-2024 Neutrophils/100 WBC (Bld) Automated neutrophil % 43.0-75.0 [facility] No Panel Informationon 10-19 Eosinophils # (Auto) 0.3 10 3/uL 0.0-0.7 [facility] Immature Granulocyte # (Auto) 0.03 10 3/uL 0.00-0.03 [facility] Phosphorus Level 3.4 mg/dL 2.6-4.7 [facility] Platelet mean volume Auto (B ld) [Entitic vol]on 10-19-2024 Platelet mean volume (Bld) [Entitic vol] Platelet mean volume [Entitic volume] in Blood by Automated count 9.5-13.5 [facility] Platelets Auto (Bld) [#/Vol] on 10-19-2024 Platelets (Bld) [#/Vol] Platelets [#/volume] in Blood by Automated count 150-450 [facility] RBC Auto (Bld) [#/Vol]on RBC (Bld) [#/Vol] Erythrocytes [#/volu me] in Blood by Automated count Low 4.70-6.10 [facility] Serum or plasma anion gap de terminationon 10-19-2024 Anion gap [Moles/Vol] Serum or plasma an ion gap determination [facility] TRANSTHORACIC ECHO (TTE) COM PLETEon 10-13-2024 TRANSTHORACIC ECHO (TTE) COMPLETE [address], [address], [place] [address] TRANSTHORACIC ECHOCARDIOGRAM REPORT Patient Name: ALAN Calderon ROTH Reading Physician: [id number] Danilo Gardner MD, [facility] Study Date: 10/13/2024 Ordering Provider: [id number] DANILO GARDNER MRN/PID: [id number] Fellow: Nurse: Date of /Age: 2 1945 Extract Puller: Simona wang RDCS, RT(R), RDMS, RVT Gender Assigned at Additional Staff: : Height: 180.34 cm Admit Date: Weight: 83.91 kg Admission Status: Outpatient BSA / BMI: 2.04 m2 / 25.80 Department Location: [facility] kg/m2 [place] Blood Pressure: 128 /78 mmHg Study Type: TRANSTHORACIC ECHO (TTE) COMPLETE Diagnosis/ICD: Nonrheumatic aortic (valve) stenosis-I35.0 Indication: CPT Codes: Echo Complete w Full [id number] Patient History: Smoker: Former. 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 Study Detail: The following Echo studies were performed: 2D, M-Mode, Doppler and color flow. PHYSICIAN INTERPRETATION: Left Ventricle: Left ventricular ejection fraction is normal, by visual estimate at 65%. There are no regional wall motion abnormalities. The left ventricular cavity size is normal. There is left ventricular concentric remodeling. Spectral Doppler shows a Grade II (pseudonormal pattern) of left ventricular diastolic filling with an elevated left atrial pressure. Moderate concentric left ventricular hypertrophy. Left Atrium: The left atrial size is normal. Right Ventricle: The right ventricle is mildly enlarged. There is normal right ventricular global systolic function. A pacemaker wire is seen in the right ventricle. Right Atrium: The right atrial size is normal. Aortic Valve: The aortic valve is trileaflet. There is moderate aortic valve cusp calcification. The aortic valve dimensionless index is 0.16. There is trace to mild aortic valve regurgitation. The peak instantaneous gradient of the aortic valve is 74 mmHg. The mean gradient of the aortic valve is 49 mmHg. Peak velocity across the aortic valve measured 430 cm/s corresponding to a peak pressure gradient of 74 mmHg and a mean pressure gradient 49 mmHg. the aortic valve area measured 0.7 cm??? consistent with severe aortic stenosis. Mitral Valve: The mitral valve is moderately thickened. There is moderate mitral annular calcification. The peak instantaneous gradient of the mitral valve is 9 mmHg. There is mild mitral valve regurgitation. Tricuspid Valve: The tricuspid valve is structurally normal. There is moderate tricuspid regurgitation. Estimated RVSP 51 mmHg consistent with moderate pulmonary hypertension. Pulmonic Valve: The pulmonic valve is not well visualized. There is no indication of pulmonic valve regurgitation. Pericardium: No pericardial effusion noted. Aorta: The aortic root is normal. Systemic Veins: The inferior vena cava appears normal in size. CONCLUSIONS: 1. Left ventricular ejection fraction is normal, by visual estimate at 65%. 2. Spectral Doppler shows a Grade II (pseudonormal pattern) of left ventricular diastolic filling with an elevated left atrial pressure. 3. Moderate concentric left ventricular hypertrophy. 4. There is normal right ventricular global systolic function. 5. A pacemaker wire is seen in the right ventricle. 6. Mildly enlarged right ventricle. 7. The mitral valve is moderately thickened. 8. There is moderate mitral annular calcification. 9. Estimated RVSP 51 mmHg consistent with moderate pulmonary hypertension. 10. Moderate tricuspid regurgitation. 11. Peak velocity across the aortic valve measured 430 cm/s corresponding to a peak pressure gradient of 74 mmHg and a mean pressure gradient 49 mmHg. the aortic valve area measured 0.7 cm??? consistent with severe aortic stenosis. 12. There is moderate aortic valve cusp calcification. QUANTITATIVE DATA SUMMARY: 2D MEASUREMENTS: Normal Ranges: Ao Root d: 3.10 cm (2.0-3.7cm) LAs: 3.72 cm (2.7-4.0cm) RVIDd: 3.51 cm (0.9-3.6cm) IVSd: 1.18 cm (0.6-1.1cm) LVPWd: 1.34 cm (0.6-1.1cm) LVIDd: 4.03 cm (3.9-5.9cm) LVIDs: 2.10 cm LV Mass Index: 88.5 g/m2 LVEDV Index: 19.17 ml/m2 LV % FS 48.0 % LEFT ATRIUM: Normal Ranges: LA Vol A4C: 85.3 ml (22+/-6mL/m2) LA Vol A2C: 87.0 ml LA Vol BP: 90.0 ml LA Vol Index A4C: 41.8ml/m2 LA Vol Index A2C: 42.6 ml/m2 LA Vol Index BP: 44.1 ml/m2 LA Vol A4C: 75.8 ml LA Vol A2C: 82.1 ml LA Vol Index BSA: 38.7 ml/m2 LV SYSTOLIC FUNCTION: Normal Ranges: EF-A4C View: 55 % (>=55%) EF-A2C View: 60 % EF-Biplane: 56 % EF-Visual: 65 % LV EF Reported: 65 % LV DIASTOLIC FUNCTION: Normal Ranges: MV Peak E: 1.29 m/s (0.7-1.2 m/s) MV Peak A: 0.41 m/s (0.42-0.7 m/s) E/A Ratio: 3.13 (1.0-2.2) MV e' 0.063 m/s (>8.0) MV lateral e' 0.08 m/s MV medial e' 0.05 (more content not included)... Normal [facility] US Heart Transthoracicon Aortic Valve Area by Continuity of Peak Velocity 0.71 cm2 [facility] Work Phone: [phone] Aortic Valve Area by Continuity of VTI 0.74 cm2 [facility] Work Phone: [phone] AV mn grad 49 mmHg [facility] Work Phone: [phone] AV pk grad 74 mmHg [facility] Work Phone: [phone] AV pk negar 4.31 m/s [facility] Work Phone: [phone] LA vol index A/L 44.1 ml/m2 [facility] Work Phone: LV A4C EF 55.5 [facility] Work Phone: LV Biplane EF 56 % [facility] Work Phone: LV EF 65 % [facility] Work Phone: LVIDd 4.03 cm [facility] Work Phone: LVOT diam 2.39 cm [facility] Work Phone: MV avg E/e' ratio 20.68 [facility] Work Phone: MV E/A ratio 3.13 [facility] Work Phone: RV free wall pk S' 13.93 cm/s [facility] Work Phone: RVSP 51.4 mmHg [facility] Work Phone: [address], [address] [place] [address] TRANSTHORACIC ECHOCARDIOGRAM REPORT Patient Name: ALAN Lange Physician: [id number] Gardner MD, [facility] Study Date: 10/13/2024 Ordering Provider: [id number] DANILO GARDNER MRN/PID: [id number] Fellow: Nurse: Date of /Age: 2 1945 Extract Puller: Simona Joe years RDCS, RT(R), RDMS, RVT Gender Assigned at Additional Staff: : Height: 180.34 cm Admit Date: Weight: 83.91 kg Admission Status: Outpatient BSA / BMI: 2.04 m2 / 25.80 Department Location: [facility] kg/[address] Blood Pressure: 128 /78 mmHg Study Type: TRANSTHORACIC ECHO (TTE) COMPLETE Diagnosis/ICD: Nonrheumatic aortic (valve) stenosis-I35.0 Indication: CPT Codes: Echo Complete w Full Doppler-[id number] Patient History: Smoker: Former. 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 Study Detail: The following Echo studies were performed: 2D, M-Mode, Doppler and color flow. PHYSICIAN INTERPRETATION: Left Ventricle: Left ventricular ejection fraction is normal, by visual estimate at 65%. There are no regional wall motion abnormalities. The left ventricular cavity size is normal. There is left ventricular concentric remodeling. Spectral Doppler shows a Grade II (pseudonormal pattern) of left ventricular diastolic filling with an elevated left atrial pressure. Moderate concentric left ventricular hypertrophy. Left Atrium: The left atrial size is normal. Right Ventricle: The right ventricle is mildly enlarged. There is normal right ventricular global systolic function. A pacemaker wire is seen in the right ventricle. Right Atrium: The right atrial size is normal. Aortic Valve: The aortic valve is trileaflet. There is moderate aortic valve cusp calcification. The aortic valve dimensionless index is 0.16. There is trace to mild aortic valve regurgitation. The peak instantaneous gradient of the aortic valve is 74 mmHg. The mean gradient of the aortic valve is 49 mmHg. Peak velocity across the aortic valve measured 430 cm/s corresponding to a peak pressure gradient of 74 mmHg and a mean pressure gradient 49 mmHg. the aortic valve area measured 0.7 cm consistent with severe aortic stenosis. Mitral Valve: The mitral valve is moderately thickened. There is moderate mitral annular calcification. The peak instantaneous gradient of the mitral valve is 9 mmHg. There is mild mitral valve regurgitation. Tricuspid Valve: The tricuspid valve is structurally normal. There is moderate tricuspid regurgitation. Estimated RVSP 51 mmHg consistent with moderate pulmonary hypertension. Pulmonic Valve: The pulmonic valve is not well visualized. There is no indication of pulmonic valve regurgitation. Pericardium: No pericardial effusion noted. Aorta: The aortic root is normal. Systemic Veins: The inferior vena cava appears normal in size. CONCLUSIONS: 1. Left ventricular ejection fraction is normal, by visual estimate at 65%. 2. Spectral Doppler shows a Grade II (pseudonormal pattern) of left ventricular diastolic filling with an elevated left atrial pressure. 3. Moderate concentric left ventricular hypertrophy. 4. There is normal right ventricular global systolic function. 5. A pacemaker wire is seen in the right ventricle. 6. Mildly enlarged right ventricle. 7. The mitral valve is moderately thickened. 8. There is moderate mitral annular calcification. 9. Estimated RVSP 51 mmHg consistent with moderate pulmonary hypertension. 10. Moderate tricuspid regurgitation. 11. Peak velocity across the aortic valve measured 430 cm/s corresponding to a peak pressure gradient of 74 mmHg and a mean pressure gradient 49 mmHg. the aortic valve area measured 0.7 cm consistent with severe aortic stenosis. 12. There is moderate aortic valve cusp calcification. QUANTITATIVE DATA SUMMARY: 2D MEASUREMENTS: Normal Ranges: Ao Root d: 3.10 cm (2.0-3.7cm) LAs: 3.72 cm (2.7-4.0cm) RVIDd: 3.51 cm (0.9-3.6cm) IVSd: 1.18 cm (0.6-1.1cm) LVPWd: 1.34 cm (0.6-1.1cm) LVIDd: 4.03 cm (3.9-5.9cm) LVIDs: 2.10 cm LV Mass Index: 88.5 g/m2 LVEDV Index: 19.17 (more content not included)... aDnilo Collins M D - 10/13/[address], Suite [facility], [place] [address] TRANSTHORACIC ECHOCARDIOGRAM REPORT Patient Name: ALAN Calderon SHARON Lange Physician: [id number] Danilo Gardner MD, [facility] Study Date: 10/13/2024 Ordering Provider: [id number] DANILO GARDNER MRN/PID: [id number] Fellow: Nurse: Date of /Age: 2 1945 Extract Puller: Simona Joe years RDCS, RT(R), RDMS, RVT Gender Assigned at Additional Staff: : Height: 180.34 cm Admit Date: Weight: 83.91 kg Admission Status: Outpatient BSA / BMI: 2.04 m2 / 25.80 Department Location: [facility] kg/m2 [place] Blood Pressure: 128 /78 mmHg Study Type: TRANSTHORACIC ECHO (TTE) COMPLETE Diagnosis/ICD: Nonrheumatic aortic (valve) stenosis-I35.0 Indication: CPT Codes: Echo Complete w Full Doppler-[id number] Patient History: Smoker: Former. 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 Study Detail: The following Echo studies were performed: 2D, M-Mode, Doppler and color flow. PHYSICIAN INTERPRETATION: Left Ventricle: Left ventricular ejection fraction is normal, by visual estimate at 65%. There are no regional wall motion abnormalities. The left ventricular cavity size is normal. There is left ventricular concentric remodeling. Spectral Doppler shows a Grade II (pseudonormal pattern) of left ventricular diastolic filling with an elevated left atrial pressure. Moderate concentric left ventricular hypertrophy. Left Atrium: The left atrial size is normal. Right Ventricle: The right ventricle is mildly enlarged. There is normal right ventricular global systolic function. A pacemaker wire is seen in the right ventricle. Right Atrium: The right atrial size is normal. Aortic Valve: The aortic valve is trileaflet. There is moderate aortic valve cusp calcification. The aortic valve dimensionless index is 0.16. There is trace to mild aortic valve regurgitation. The peak instantaneous gradient of the aortic valve is 74 mmHg. The mean gradient of the aortic valve is 49 mmHg. Peak velocity across the aortic valve measured 430 cm/s corresponding to a peak pressure gradient of 74 mmHg and a mean pressure gradient 49 mmHg. the aortic valve area measured 0.7 cm consistent with severe aortic stenosis. Mitral Valve: The mitral valve is moderately thickened. There is moderate mitral annular calcification. The peak instantaneous gradient of the mitral valve is 9 mmHg. There is mild mitral valve regurgitation. Tricuspid Valve: The tricuspid valve is structurally normal. There is moderate tricuspid regurgitation. Estimated RVSP 51 mmHg consistent with moderate pulmonary hypertension. Pulmonic Valve: The pulmonic valve is not well visualized. There is no indication of pulmonic valve regurgitation. Pericardium: No pericardial effusion noted. Aorta: The aortic root is normal. Systemic Veins: The inferior vena cava appears normal in size. CONCLUSIONS: 1. Left ventricular ejection fraction is normal, by visual estimate at 65%. 2. Spectral Doppler shows a Grade II (pseudonormal pattern) of left ventricular diastolic filling with an elevated left atrial pressure. 3. Moderate concentric left ventricular hypertrophy. 4. There is normal right ventricular global systolic function. 5. A pacemaker wire is seen in the right ventricle. 6. Mildly enlarged right ventricle. 7. The mitral valve is moderately thickened. 8. There is moderate mitral annular calcification. 9. Estimated RVSP 51 mmHg consistent with moderate pulmonary hypertension. 10. Moderate tricuspid regurgitation. 11. Peak velocity across the aortic valve measured 430 cm/s corresponding to a peak pressure gradient of 74 mmHg and a mean pressure gradient 49 mmHg. the aortic valve area measured 0.7 cm consistent with severe aortic stenosis. 12. There is moderate aortic valve cusp calcification. QUANTITATIVE DATA SUMMARY: 2D MEASUREMENTS: Normal Ranges: Ao Root d: 3.10 cm (2.0-3.7cm) LAs: 3.72 cm (2.7-4.0cm) RVIDd: 3.51 cm (0.9-3.6cm) IVSd: 1.18 cm (0.6-1.1cm) LVPWd: 1.34 cm (0.6-1.1cm) LVIDd: 4.03 cm (3.9-5.9cm) LVIDs: 2.10 cm LV Mass Index: 88.5 g/m2 LVEDV Index: 19.17 ml/m2 LV % FS 48.0 % LEFT ATRIUM: Normal Ranges: LA Vol A4C: 85.3 ml (22+/-6mL/m2) LA Vol A2C: 87.0 ml LA Vol BP: 90.0 ml LA Vol Index A4C: 41.8ml/m2 LA Vol Index A2C: 42.6 ml/m2 LA Vol Index BP: 44.1 ml/m2 LA Vol A4C: 75.8 ml LA Vol A2C: 82.1 ml LA Vol Index BSA: 38.7 ml/m2 LV SYSTOLIC FUNCTION: Normal Ranges: EF-A4C View: 55 % (>=55%) EF-A2C View: 60 % EF-Biplane: 56 % EF-Visual: 65 % LV EF Reported: 65 % LV DIASTOLIC FUNCTION: Normal Ranges: MV Peak E: 1.29 m/s (0.7-1.2 m/s) MV Peak A: 0.41 m/s (0.4 (more content not included)... [facility] Work Phone: [facility] Work Phone: Laboratory - Chemistry and C hemistry - challengeon 09-06-2024 HCO3 (Bld) [Moles/Vol] 27.2 mmol/L High 22.0-26.0 F [facility] No Panel Informationon 09-06 Miky Test Positive POSITIVE [facility] Arterial Blood Base Excess 3.1 mmol/L High <2.0-2.0 [facility] Arterial Blood Oxygen Saturation 93.6 % [facility] Arterial Blood Partial Pressure CO2 39.5 mm[Hg] 35.0-45.0 [facility] Arterial Blood Partial Pressure O2 67.4 mm[Hg] Low 80.0-100.0 [facility] Arterial Blood pH 7.445 7.350-7.45 0 [facility] Blood Gas Sample Site RB [facility] Oxygen Delivery Device ROOM AIR Fi [facility] Basophils Auto (Bld) [#/Vol] on 06-06-2024 Basophils (Bld) [#/Vol] Automated basophil count 0.0-0.1 [facility] Basophils/100 WBC Auto (Bld) on 06-06-2024 Basophils/100 WBC (Bld) Automated basophil % 0.2-2.0 [facility] Eosinophils/100 WBC Auto (Bl d)on 06-06-2024 Eosinophils/100 WBC (Bld) Automated eosinophil % 0.9-7.0 [facility] Erythrocyte distribution wid th Auto (RBC) [Ratio]on 06-06-2024 Erythrocyte distribution width (RBC) [Ratio] Erythrocyte distribution width [Ratio] by Automated count High 11.0-15.0 [facility] Hematocrit Auto (Bld) [Volum e fraction]on 06-06-2024 Hematocrit (Bld) [Volume fraction] Hematocrit [Volume Fraction] of Blood by Automated count 42.0-54.0 [facility] Hemoglobin [Mass/volume] in Bloodon 06-06-2024 Hemoglobin (Bld) [Mass/Vol] Hemoglobin [Mass/volume] in Blood Low 14.0-18.0 [facility] Laboratory - Hematology and Cell countson 06-06-2024 Immature granulocytes/100 WBC (Bld) 0.6 % High 0.0-0.5 [facility] Leukocytes [#/volume] correc clarita for nucleated erythrocytes in Blood by Automated counon 06-06-2024 WBC corrected for nucl RBC Auto (Bld) [#/Vol] Leukocytes [#/volume] corrected for nucleated erythrocytes in Blood by Automated coun 4.0-11.0 [facility] Lymphocytes Auto (Bld) [#/Vo l]on 06-06-2024 Lymphocytes (Bld) [#/Vol] Lymphocytes [#/volume] in Blood by Automated count 1.2-3.8 [facility] Lymphocytes/100 WBC Auto (Bl d)on 06-06-2024 Lymphocytes/100 WBC (Bld) Lymphocytes/100 leukocytes in Blood by Automated count Low 20.5-60.0 [facility] MCH Auto (RBC) [Entitic mass ]on 06-06-2024 MCH (RBC) [Entitic mass] MCH [Entitic mass] by Automated count 25.9-34.0 [facility] MCHC Auto (RBC) [Mass/Vol]on 06-06-2024 MCHC (RBC) [Mass/Vol] MCHC [Mass/volume] by Automated count 29.9-35.2 [facility] MCV Auto (RBC) [Entitic vol] on 06-06-2024 MCV (RBC) [Entitic vol] MCV [Entitic volume] by Automated count High 80.0-94.0 [facility] Monocytes Auto (Bld) [#/Vol] on 06-06-2024 Monocytes (Bld) [#/Vol] Automated blood monocyte count 0.3-0.8 [facility] Monocytes/100 WBC Auto (Bld) on 06-06-2024 Monocytes/100 WBC (Bld) Automated monocyte % 1.7-12.0 [facility] Neutrophils Auto (Bld) [#/Vo l]on 06-06-2024 Neutrophils (Bld) [#/Vol] Neutrophils [#/volume] in Blood by Automated count High 1.4-6.5 [facility] Neutrophils/100 WBC Auto (Bl d)on 06-06-2024 Neutrophils/100 WBC (Bld) Automated neutrophil % 43.0-75.0 [facility] No Panel Informationon 06-06 Eosinophils # (Auto) 0.2 10 3/uL 0.0-0.7 [facility] Immature Granulocyte # (Auto) 0.05 10 3/uL High 0.00-0.03 [facility] Platelet mean volume Auto (B ld) [Entitic vol]on 06-06-2024 Platelet mean volume (Bld) [Entitic vol] Platelet mean volume [Entitic volume] in Blood by Automated count 9.5-13.5 [facility] Platelets Auto (Bld) [#/Vol] on 06-06-2024 Platelets (Bld) [#/Vol] Platelets [#/volume] in Blood by Automated count 150-450 [facility] RBC Auto (Bld) [#/Vol]on RBC (Bld) [#/Vol] Erythrocytes [#/volu me] in Blood by Automated count Low 4.70-6.10 [facility] Basophils Auto (Bld) [#/Vol] on 03-06-2024 Basophils (Bld) [#/Vol] 0.0 10 3/uL 0.0-0.1 [facility] Basophils/100 WBC Auto (Bld) on 03-06-2024 Basophils/100 WBC (Bld) 0.3 % 0.2-2.0 [facility] Eosinophils/100 WBC Auto (Bl d)on 03-06-2024 Eosinophils/100 WBC (Bld) 2.5 % 0.9-7.0 [facility] Erythrocyte distribution wid th Auto (RBC) [Ratio]on 03-06-2024 Erythrocyte distribution width (RBC) [Ratio] 15.4 % High 11.0-15.0 [facility] Hematocrit Auto (Bld) [Volum e fraction]on 03-06-2024 Hematocrit (Bld) [Volume fraction] 41.2 % Low 42.0-54.0 [facility] Hemoglobin [Mass/volume] in Bloodon 03-06-2024 Hemoglobin (Bld) [Mass/Vol] 13.2 g/dL Low 14.0-18.0 [facility] Iron binding capacity [Mass/ volume] in Serum or Plasmaon 03-06-2024 Iron binding capacity [Mass/Vol] 309.0 ug/dL 250.0-450. 0 [facility] Iron saturation [Mass Fracti on] in Serum or Plasmaon 03-06-2024 Iron saturation [Mass fraction] 36.6 % [facility] Laboratory - Chemistry and C hemistry - challengeon 03-06-2024 Cobalamin (Vitamin B12) [Mass/Vol] 871.0 pg/mL 193.0-986. 0 [facility] Ferritin [Mass/Vol] 406.0 ng/mL High 26.0-388.0 [facility] Iron [Mass/Vol] 113.0 ug/dL 65.0-175.0 [facility] - Hematology and Cell countson 03-06-2024 Immature granulocytes/100 WBC (Bld) 0.5 % 0.0-0.5 [facility] Leukocytes [#/volume] correc clarita for nucleated erythrocytes in Blood by Automated counon 03-06-2024 WBC corrected for nucl RBC Auto (Bld) [#/Vol] 8.7 10 3/uL 4.0-11.0 [facility] Lymphocytes Auto (Bld) [#/Vo l]on 03-06-2024 Lymphocytes (Bld) [#/Vol] 1.6 10 3/uL 1.2-3.8 [facility] Lymphocytes/100 WBC Auto (Bl d)on 03-06-2024 Lymphocytes/100 WBC (Bld) 18.7 % Low 20.5-60.0 [facility] MCH Auto (RBC) [Entitic mass ]on 03-06-2024 MCH (RBC) [Entitic mass] 31.4 pg 25.9-34.0 [facility] MCHC Auto (RBC) [Mass/Vol]on 03-06-2024 MCHC (RBC) [Mass/Vol] 32.0 g/dL 29.9-35.2 [facility] MCV Auto (RBC) [Entitic vol] on 03-06-2024 MCV (RBC) [Entitic vol] 97.9 fL High 80.0-94.0 [facility] Monocytes Auto (Bld) [#/Vol] on 03-06-2024 Monocytes (Bld) [#/Vol] 0.6 10 3/uL 0.3-0.8 [facility] Monocytes/100 WBC Auto (Bld) on 03-06-2024 Monocytes/100 WBC (Bld) 6.9 % 1.7-12.0 [facility] Neutrophils Auto (Bld) [#/Vo l]on 03-06-2024 Neutrophils (Bld) [#/Vol] 6.2 10 3/uL 1.4-6.5 [facility] Neutrophils/100 WBC Auto (Bl d)on 03-06-2024 Neutrophils/100 WBC (Bld) 71.1 % 43.0-75.0 [facility] No Panel Informationon 03-06 Eosinophils # (Auto) 0.2 10 3/uL 0.0-0.7 [facility] Folate 7.50 ng/mL Low 8.60-58.90 [facility] Immature Granulocyte # (Auto) 0.04 10 3/uL High 0.00-0.03 [facility] Platelet mean volume Auto (B ld) [Entitic vol]on 03-06-2024 Platelet mean volume (Bld) [Entitic vol] 11.0 fL 9.5-13.5 [facility] Platelets Auto (Bld) [#/Vol] on 03-06-2024 Platelets (Bld) [#/Vol] 171 10 3/uL 150-450 [facility] RBC Auto (Bld) [#/Vol]on RBC (Bld) [#/Vol] 4.21 10 6/uL Low 4.70-6.10 [facility] Office Visit (Cardiology)on 09-18-2022 Follow-up visit [...] 02:52PM Hea (more content not included)... Normal [employer] Tobacco Screening.on 023 Adult depression screening assessment No [facility] [employer] 250 DO Work Phone: Fall risk assessment a) No falls within the last year [facility] [employer] 250 DO Work Phone: Tobacco use status [facility] b) No -[facility] Heart-[facility] renetta 250 DO Work Phone: ECHOCARDIO M/2D COMPLETEon 0 08-10-2022 ECHOCARDIO M/2D COMPLETE Patient: ALAN ROTH Exam Date: 08/10/2022 : 1945 Gender:M Ordering : FERNY GARCIA M.D. Admission #: [id number] Family : DR CAESAR GLOVER M.D. Order #: [id number] CLICK HERE TO VIEW EXAM ECHOCARDIOGRAM REPORT [...] 3.33 cm Aortic Valve AoV Area (Peak Negar): 1.16 cm2, 1.32 cm2 AoV Area (VTI): [...] Lopez M.D. on 08/10/2022 at 13:49 Normal [facility] PROF CHEM 8 (BAS METB)on Anion gap [Moles/Vol] 13.2 mmol/L Normal [facility] Comment on above: Performed By: #### B MP #### [facility] [address] [address] [address] Keya Kuhn Calcium [Mass/Vol] 9.1 mg/dL Normal 8.5-10.1 [facility] Comment on above: Performed By: #### B MP #### [facility] [address] [address] [address] Keya Kuhn Chloride [Moles/Vol] 108 mmol/L Critically high 98-107 [facility] Comment on above: Performed By: #### B MP #### [facility] [address] [place] [address] Dr. Keya Kuhn CO2 [Moles/Vol] 26.6 mmol/L Normal 21.0-32.0 [facility] Comment on above: Performed By: #### B MP #### [facility] [address] [address] [address] Keya Kuhn Creatinine [Mass/Vol] 0.87 mg/dL Normal 0.70-1.30 [facility] Comment on above: Performed By: #### B MP #### [facility] [address] [place] [address] Dr. Keya Kuhn EGFR-AF PARAGUAYAN >60 Normal >=60 [facility] Comment on above: Performed By: #### B MP #### [facility] [address] [address] [address] Keya Kuhn EGFR-NON AF PARAGUAYAN >60 Normal >=60 [facility] Comment on above: Performed By: #### B MP #### [facility] [address] [address] [address] Keya Kuhn Glucose [Mass/Vol] 112 mg/dL Critically high 74-106 [facility] Comment on above: Performed By: #### B MP #### [facility] [address] [address] [address] Keya Kuhn Potassium [Moles/Vol] 3.8 mmol/L Normal 3.5-5.1 [facility] Comment on above: Performed By: #### B MP #### [facility] [address] [address] [address] Keya Kuhn Sodium [Moles/Vol] 144 mmol/L Normal 136-145 [facility] Comment on above: Performed By: #### B MP #### [facility] [address] [address] [address] Keya Kuhn Urea nitrogen [Mass/Vol] 17.0 mg/dL Normal 7.0-18.0 [facility] Comment on above: Performed By: #### B MP #### [facility] [address] [address] [address] Keya Kuhn Urea nitrogen/Creatinine [Mass ratio] 19.5 mg/mg Normal [facility] Comment on above: Performed By: #### B MP #### [facility] [address] [address] [address] Keya Kuhn LIPID PROFILEon 07-02-2022 CHOL-HDL RATIO NORM SEE BELOW Normal [facility] Comment on above: Result Comment: 3.3 - 4.4 LOW RISK 4.4 - 7.1 AVERAGE RISK 7.1 - 11.0 MODERATE RISK >11.0 HIGH RISK Performed By: #### L IPID, AST, BMP, ALT #### [facility] [address] [place] [address] Dr. Keya Kuhn Cholesterol [Mass/Vol] 112 mg/dL Normal <=[address] [facility] Comment on above: Performed By: #### L IPID, AST, BMP, ALT #### [facility] [address] [address] [address] Keya Kunh Cholesterol in HDL [Mass/Vol] 43 mg/dL Normal 40-60 [facility] Comment on above: Performed By: #### L IPID, AST, BMP, ALT #### [facility] [address] [address] [address] Keya Kuhn Cholesterol in LDL [Mass/Vol] 56.0 mg/dL Normal [facility] Comment on above: Performed By: #### L IPID, AST, BMP, ALT #### [facility] [address] [address] [address] Keya Kuhn Cholesterol.total/Chol esterol in HDL [Mass ratio] 2.6 {ratio} Normal [facility] Comment on above: Performed By: #### L IPID, AST, BMP, ALT #### [facility] [address] [address] [address] Keya Kuhn HDL NORMAL > or = 60 mg/dl - LO W CARDIOVASCULAR RISK <40 mg/dl - HIGH CARDIOVASCULAR RISK Normal [facility] Comment on above: Performed By: #### L IPID, AST, BMP, ALT #### [facility] [address] [address] [address] Keya Kuhn LDL CALC NORMAL SEE BELOW Normal [facility] Comment on above: Result Comment: <100 mg/dl OPTIMAL 100 - 129 mg/dl NEAR OR ABOVE OPTIMAL 130 - 159 mg/dl BORDERLINE HIGH 160 - 189 mg/dl HIGH >190 mg/dl VERY HIGH Performed By: #### L IPID, AST, BMP, ALT #### [facility] [address] [place] [address] Dr. Keya Kuhn Triglyceride [Mass/Vol] 65 mg/dL Normal <=150 [facility] Comment on above: Performed By: #### L IPID, AST, BMP, ALT #### [facility] [address] [place] [address] Dr. Keya Kuhn VLDL CALC 13.0 mg/dL Normal [facility] Comment on above: Performed By: #### L IPID, AST, BMP, ALT #### [facility] [address] [address] [address] Keya Kuhn PROF CHEM 8 (BAS METB)on Anion gap [Moles/Vol] 11.5 mmol/L Normal [facility] Comment on above: Performed By: #### L IPID, AST, BMP, ALT #### [facility] [address] [place] [address] Dr. Keya Kuhn Calcium [Mass/Vol] 9.0 mg/dL Normal 8.5-10.1 [facility] Comment on above: Performed By: #### L IPID, AST, BMP, ALT #### [facility] [address] [place] [address] Dr. Keya Kuhn Chloride [Moles/Vol] 104 mmol/L Normal 98-107 [facility] Comment on above: Performed By: #### L IPID, AST, BMP, ALT #### [facility] [address] [place] [address] Dr. Keya Kuhn CO2 [Moles/Vol] 29.6 mmol/L Normal 21.0-32.0 [facility] Comment on above: Performed By: #### L IPID, AST, BMP, ALT #### [facility] [address] [place] [address] Dr. Keya Kuhn Creatinine [Mass/Vol] 0.82 mg/dL Normal 0.70-1.30 [facility] Comment on above: Performed By: #### L IPID, AST, BMP, ALT #### [facility] [address] [place] [address] Dr. Keya Kuhn EGFR-AF PARAGUAYAN >60 Normal >=60 [facility] Comment on above: Performed By: #### L IPID, AST, BMP, ALT #### [facility] [address] [place] [address] Dr. Keya Kuhn EGFR-NON AF PARAGUAYAN >60 Normal >=60 [facility] Comment on above: Performed By: #### L IPID, AST, BMP, ALT #### [facility] [address] [place] [address] Dr. Keya Kuhn Glucose [Mass/Vol] 118 mg/dL Critically high 74-106 [facility] Comment on above: Performed By: #### L IPID, AST, BMP, ALT #### [facility] [address] [place] [address] Dr. Keya Kuhn Potassium [Moles/Vol] 3.1 mmol/L Critically low 3.5-5.1 [facility] Comment on above: Performed By: #### L IPID, AST, BMP, ALT #### [facility] [address] [place], [place] [address] Dr. Keya Kuhn Sodium [Moles/Vol] 142 mmol/L Normal 136-145 [facility] Comment on above: Performed By: #### L IPID, AST, BMP, ALT #### [facility] [address] [place] [address] Dr. Keya Kuhn Urea nitrogen [Mass/Vol] 14.0 mg/dL Normal 7.0-18.0 [facility] Comment on above: Performed By: #### L IPID, AST, BMP, ALT #### [facility] [address] [place] [address] Dr. Keya Kuhn Urea nitrogen/Creatinine [Mass ratio] 17.1 mg/mg Normal [facility] Comment on above: Performed By: #### L IPID, AST, BMP, ALT #### [facility] [address] [place] [address] Dr. Keya Jensen 07-02-2022 AST [Catalytic activity/Vol] 22 U/L Normal 15-37 [facility] Comment on above: Performed By: #### L IPID, AST, BMP, ALT #### [facility] [address] [place] [address] [facility] ALT [Catalytic activity/Vol] 21 U/L Normal 16-63 [facility] Comment on above: Performed By: #### L IPID, AST, BMP, ALT #### [facility] [address] [place] [address] Dr. Keya Kuhn Office Visit (Cardiology)on 06-18-2022 [...] Recorded: 18Jun2022 12:59PM Heart Rate68, L Radial Zxvqkcni734, LUE, Sitting Ghvkscsxd49, LUE, Sitting Height5 ft 11 in Omvady765 lb BMI Nwgovgozit39.2 kg/m2 BSA Calculated2.09 Tobacco Useb) No Falls [...] regular r (more content not included)... Normal [employer] Tobacco Screening.on 022 Fall risk assessment a) No falls within the last year -[facility] Heart-Sand[facility] renetta 250 DO Work Phone: Tobacco use status [facility] b) No -[facility] Heart-[facility] [employer] renetta 250 DO Work Phone: VASC LAB Carotid Artery Dupl ex Ultrasounon 05-07-2022 VASC LAB Carotid Artery Duplex Ultrasoun [facility] [address], [address] [place] [address] Vascular Lab Report Carotid Artery Duplex Ultrasound Patient Name: ALAN Kvng Lange Physician: [id number] Danilo Gardner MD, [facility] Study Date: 05/07/2022 Referring ANGEL WOODS Physician: MRN/PID: [id number] PCP: Caesar Glover Accession/Order#: [id number] CC Report to: Date of : 1945 Technologist: Dee Corey RD, [facility] Gender: M Technologist 2: Admission Status: Outpatient Location Performed: [facility] Diagnosis/ICD: R09.89-Other specified symptoms and signs involving the circulatory and respiratory systems Indication: HTN, Hyperlipidemia, Former Smoker, CAD, Complete Heart Block, Sick Sinus Syndrome, Pacemaker, Aortic Stenosis, COPD-on O2 at 2l Procedure/CPT: 77473 Cerebrovascular Carotid Duplex scan complete-39113 CONCLUSIONS: Right Carotid: Findings are consistent with [...] cm/s Right Left ICA/CCA Ratio 0.8 0.9 19011 Danilo Gardner MD, FACC Final Normal [facility] VASC LAB Carotid Artery Dupl ex Ultrasoundon 05-07-2022 US.doppler Carotid arteries Please click on the link to view the study images [facility] Work Phone: US.doppler Carotid arteries -[facility] Heart-[facility] lk 600 DO Work Phone: Office Visit (Cardiology)on [...] For - Scheduling,Retrospective By Protocol Authorization; Requested for:[id number]; Laterality : Bilateral Essential hypertension Renew: amLODIPine Besylate 10 MG Oral Tablet; TAKE 1 TABLET DAILY Overweight with body mass index (BMI) of 28 to 28.9 in adult Healthy Weight Tips; Status:Complete - Retrospective Authorization; Done: [id number] Some eating tips that can help you lose weight.; Status:Complete - Retrospective Authorization; Done: [id number] Patient Instructions Please bring all medicines, vitamins, and herbal supplements with you when you come to the office. Prescriptions will not be filled unless you are compliant with your follow up appointments or have a follow up appointment scheduled as per instruction of your physician. Refills should be requested at the time of your visit. Follow up after testing Chief Complaint ALAN ROTH is being seen for Results. History of [...] negative for complaint. Vitals Vital Signs Recorded: [id number] 08:55AM Heart Rate80, L Radial Ieygcswx065, LUE, Sitting Idhekkpqo72, LUE, Sitting Height5 ft 11 in Szegyo968 lb BMI Dablgjzhqn93.03 kg/m2 BSA Calculated2.11 Tobacco Useb) No Falls [...] no mass (more content not included)... Normal [employer] Tobacco Screening.on 022 Fall risk assessment a) No falls within the last year [facility] Chartboost 250 DO Work Phone: Tobacco use status CP b) No [facility] BookBottlesy 250 DO Work Phone: [facility] CARDIAC STRESS/REST INJE CTIONon 03-04-2022 [facility] CARDIAC STRESS/REST INJECTION Patient Name: ALAN ROTH STUDY: MYOCARDIAL PERFUSION STRESS TEST WITH LEXISCAN Performing facility: [facility], [address] [place] [address], [address], [place] [address] [facility] Provider: Mignon Woods MD, [facility] PCP: Dr. Sukhjinder Glover Supervising provider: Danilo Gardner MD, [facility] INDICATION: Angina CAD; HISTORY: Gender: M; Age: 76 y/o ; Height: 180.34 cm; Weight: 91.3282916 kg. CAD; High Cholesterol; HTN; PPM Chest Pain; SOB; Quit smoking unknown years ago. Cardiac catheterization on 2014. PTCA on 2014. COMPARISON: Previous nuclear testing completed [id number] at [facility]. ACCESSION NUMBER(S): [id number]; [id number]; [id number] ORDERING CLINICIAN: ANGEL WOODS TECHNIQUE: ONE DAY protocol. Stress injection: Date:03-04-22, [...] the perfusion standpoint. Electronically signed by: DANILO GARDNER MD Normal [facility] No Panel Informationon 03-04 Normal -[facility] Heart-Sandu renetta [address] [place] Work Phone: Office Visit (Cardiology)on [...] Med Order; Status:Hold For - Scheduling; Requested for:[id number]; Radiologist to Determine Optimal Study : Y What are the patient's signs and symptoms? : SOB, angina Hyperlipidemia Stop: Pravastatin Sodium 40 MG Oral Tablet Start: Atorvastatin Calcium 20 MG Oral Tablet; TAKE 1 TABLET AT BEDTIME Overweight with body mass index (BMI) of 28 to 28.9 in adult Healthy Weight Tips; Status:Complete; Done: [id number] Some eating tips that can help you lose weight.; Status:Complete; Done: 73Suc3201 SocHx: Former smoker Tobacco Use Screening; Status:Complete; Done: 15Lzt3384 Patient Instructions Please bring all medicines, vitamins, [...] negative for complaint. Vitals Vital Signs Recorded: [id number] 09:34AM Heart Rate60, L Radial Sneolzch341, LUE, Sitting Allzaheji57, LUE, Sitting Height5 ft 11 in Eqrwnt733 lb BMI Hzjxtzvymg28.17 kg/m2 BSA Calculated2.12 Tobacco Useb) No PHQ-2 [...] carotid pulse (more content not included)... Normal [employer] Tobacco Screening.on 022 Adult depression screening assessment No [facility] [employer] 250 DO Work Phone: Fall risk assessment a) No falls within the last year [facility] Chartboost 250 DO Work Phone: Tobacco use status CP b) No [facility] [employer] 250 DO Work Phone: CT LUNG CANCER [...] OSIRIS JIMENEZ Date: 2022-02-03 13:27 Normal [facility] HEMOGLOBINon 12-23-2021 Hemoglobin (Bld) [Mass/Vol] 14.7 g/dL Normal 14.0-18.0 [facility] Comment on above: Performed By: #### H GB #### [facility] [address] [place] [address] Dr. Keya Kuhn PULMONARY FUNCTION TESTon PULMONARY FUNCTION TEST The [place], [place] NAME: ALAN ROTH Kvng DATE OF : MEDICAL REC#: [id number] ACCOUNTING SOFTWARE SPECIALIST: [id number] [facility], TRANSADMIT DATE: 12/23/2021 08:58:00 SURGICAL SERVICES TECH DATE: 12/24/2021 03:00 DICTATING PHYSICIAN: STALIN ONOFRE [...] AM EDT IFC Signed and Approved by: TSALIN ONOFRE . 12/24/2021 11:07:00 Normal [facility] Activated partial thrombopla stin time (aPTT) in platelet poor plasma by coagulation aOrdered By: Angel Woods on 11-06-2021 aPTT Coag (PPP) [Time] 34.6 s 25.1-36.5 [facility] - CoagulationOrde red By: Angel Woods on 11-06-2021 PT Coag (PPP) [Time] 12.8 s 9.0-12.9 [facility] No Panel Informationon 11-06 1.1\S\1.1 Normal [facility] renetta 250 DO Work Phone: Comment on above: [...] valves: 3 - 4.5 12.8\S\12.8 Normal 9.0-12.9 [facility] 250 DO Work Phone: 34.6\S\34.6 Normal 25.1-36.5 [facility] 250 DO Work Phone: Comment on above: PERFORMED BY:[facility] [place], [place] [id number] MEDICAL DIRECTORROSCOE LEMUS M.D. Platelet poor plasma interna tional normalized ratio (INR) by coagulation assay (relatOrdered By: Angel Woods on 11-06-2021 INR Coag (PPP) [Relative time] 1.1 {INR} [facility] Comment on above: INR Therapeutic Rang [...] Radiologyon 11-06-2021 Portable XR Chest Views Normal -[facility] renetta 250 DO Work Phone: XR Chest 2 Views Normal [facility] renetta 250 DO Work Phone: COVID-19 Positive/NegativeOr dered By: Angel Woods on 11-04-2021 SARS-CoV-2 (COVID-19) N gene OG+probe Ql (Resp) Negative Negative [facility] Comment on above: Testing for SARS-CoV -2 by RT-PCRThis test was developed and its performance characteristics determined by [employer] ([employer]) and validated at the [facility]. This test has not been FDA [...] and its performance characteristics determined by [employer] ([employer]) and validated at the [facility]. This test has not been FDA [...] Basophils Auto (Bld) [#/Vol] Ordered By: Angel Woods on 10-29-2021 Basophils (Bld) [#/Vol] 0.0 10*3/uL 0.0-0.2 [facility] Basophils/100 WBC Auto (Bld) Ordered By: Angel Woods on 10-29-2021 Basophils/100 WBC (Bld) 0.6 % [facility] Blood hemoglobin measurement (mass/volume)Ordered By: Angel Woods on 10-29-2021 Hemoglobin (Bld) [Mass/Vol] 14.9 g/dL 13.0-17.0 [facility] Blood leukocytes automated c ount (number/volume)Ordered By: Angel Woods on 10-29-2021 WBC (Bld) [#/Vol] 7.6 10*3/uL 4.5-11.0 [facility] [place] [facility] Creatinine and Glomerular fi ltration rate.predicted panel (S/P/Bld)Ordered By: Angel Woods on 10-29-2021 Creatinine [Mass/Vol] 0.83 mg/dL 0.64-1.27 [facility] Eosinophils Auto (Bld) [#/Vo l]Ordered By: Angel Woods on 10-29-2021 Eosinophils (Bld) [#/Vol] 0.2 10*3/uL 0.0-0.45 [facility] Eosinophils/100 WBC Auto (Bl d)Ordered By: Angel Woods on 10-29-2021 Eosinophils/100 WBC (Bld) 2.9 % [facility] Erythrocyte distribution wid th Auto (RBC) [Ratio]Ordered By: Angel Woods on 10-29-2021 Erythrocyte distribution width (RBC) [Ratio] 14.8 % 12.0-14.8 [facility] Estimated glomerular filtrat ion rate (GFR) non- AmericanOrdered By: Angel Woods on 10-29-2021 GFR/1.73 sq M.predicted among non-blacks MDRD (S/P/Bld) [Vol rate/Area] > 60 mL/Min [facility] Hematocrit Auto (Bld) [Volum e fraction]Ordered By: Angel Woods on 10-29-2021 Hematocrit (Bld) [Volume fraction] 45.8 % 38.8-50.0 [facility] Laboratory - Hematology and Cell countsOrdered By: Angel Woods on 10-29-2021 Nucleated RBC/100 WBC (Bld) [Ratio] 0.1 % 0-0.5 [facility] Lymphocytes Auto (Bld) [#/Vo l]Ordered By: Angel Woods on 10-29-2021 Lymphocytes (Bld) [#/Vol] 1.7 10*3/uL 1.00-4.8 [facility] Lymphocytes/100 WBC Auto (Bl d)Ordered By: Angel Woods on 10-29-2021 Lymphocytes/100 WBC (Bld) 21.8 % [facility] MCH Auto (RBC) [Entitic mass ]Ordered By: Angel Woods on 10-29-2021 MCH (RBC) [Entitic mass] 30.1 pg 27.5-35.2 [facility] MCHC Auto (RBC) [Mass/Vol]Or dered By: Angel Woods on 10-29-2021 MCHC (RBC) [Mass/Vol] 32.6 g/dL 32.5-35.6 [facility] MCV Auto (RBC) [Entitic vol] Ordered By: Angel Woods on 10-29-2021 MCV (RBC) [Entitic vol] 92.3 fL 83.5-101 [facility] Monocytes Auto (Bld) [#/Vol] Ordered By: Angel Woods on 10-29-2021 Monocytes (Bld) [#/Vol] 0.6 10*3/uL 0.0-0.8 [facility] Monocytes/100 WBC Auto (Bld) Ordered By: Angel Woods on 10-29-2021 Monocytes/100 WBC (Bld) 7.6 % [facility] Neutrophils Auto (Bld) [#/Vo l]Ordered By: Angel Woods on 10-29-2021 Neutrophils (Bld) [#/Vol] 5.1 10*3/uL 1.8-7.7 [facility] Neutrophils/100 WBC Auto (Bl d)Ordered By: Angel Woods on 10-29-2021 Neutrophils/100 WBC (Bld) 67.1 % [facility] No Panel InformationOrdered By: Angel Woods on 10-29-2021 Estimated GFR () > 60 mL/Min [facility] Comment on above: GFR estimated refere nce range: According to KDOQI guidelines, <60 ml/min/1.73m2 is sufficient to diagnose a patient with chronic kidney disease. Pharmacy Creatinine Clearance (Chem N/A [facility] No Panel Informationon 10-29 9.6\S\9.6 Normal 8.2-10.2 [facility] Work Phone: Comment on above: PERFORMED BY:[place] [address] [place], [place] [phone] MEDICAL DIRECTORROSCOE LEMSU M.D. 23.9\S\23.9 Normal 22.0-30.0 [facility]k 600 DO Work Phone: 105\S\105 Normal 95-114 [facility] 600 DO Work Phone: 3.5\S\3.5 Normal 3.5-5.1 [facility] 600 DO Work Phone: [phone] 139\S\139 Normal 136-146 [facility] Paulo hansen 600 DO Work Phone: > 60 Normal [facility] Paulo hansen 600 DO Work Phone: [phone] Comment on above: GFR estimated refere nce range: According to KDOQI guidelines, <60 ml/min/1.73m2 is sufficient to diagnose a patient with chronic kidney disease. 0.83\S\0.83 Normal 0.64-1.27 [facility] Paulo hansen 600 DO Work Phone: [phone] 14\S\14 Normal 9-23 [facility] Paulo hansen 600 DO Work Phone: 117\S\117 above high threshold 70-100 [facility] Paulo hansen 600 DO Work Phone: Comment on above: Random Glucose Refer ence Range is dependent on time and content of last meal. Glucose of more than 200 mg/dL in a nonstressed, ambulatory subject supports the diagnosis of Diabetes Mellitus. ADA recommended reference range 67.1\S\67.1 Normal . [facility] Paulo hansen 600 DO Work Phone: [phone] 9.0\S\9.0 Normal 6.6-10.1 [facility] Paulo hansen 600 DO Work Phone: 196\S\196 Normal 150-450 [facility] Paulo hansen 600 DO Work Phone: [phone] 14.8\S\14.8 Normal 12.0-14.8 [facility] Paulo hansen 600 DO Work Phone: [phone] 32.6\S\32.6 Normal 32.5-35.6 [facility] Paulo hansen 600 DO Work Phone: [phone] 30.1\S\30.1 Normal 27.5-35.2 [facility] Paulo hansen 600 DO Work Phone: [phone] 5.1\S\5.1 Normal 1.8-7.7 [facility] [facility] 600 DO Work Phone: 0.1\S\0.1 Normal 0-0.5 [facility] [facility] 600 DO Work Phone: 0.6\S\0.6 Normal 0.0-0.8 [facility] [facility] 600 DO Work Phone: 2.9\S\2.9 Normal . [facility] [facility] 600 DO Work Phone: 7.6\S\7.6 Normal 4.1-10.5 -[facility] [facility] 600 DO Work Phone: 21.8\S\21.8 Normal . [facility] [facility] 600 DO Work Phone: 0.0\S\0.0 Normal 0.0-0.2 [facility] 600 DO Work Phone: Comment on above: PERFORMED BY:[place] [address] [place] [place], [place] [phone] MEDICAL DIRECTORROSCOE LEMUS M.D. 0.2\S\0.2 Normal 0.0-0.45 [facility] 600 DO Work Phone: 1.7\S\1.7 Normal 1.00-4.8 [facility] [facility] 600 DO Work Phone: 92.3\S\92.3 Normal 83.5-101 [facility] [facility] 600 DO Work Phone: 45.8\S\45.8 Normal 38.8-50.0 [facility] [facility] 600 DO Work Phone: 14.9\S\14.9 Normal 13.0-17.0 [facility] [facility] 600 DO Work Phone: 4.96\S\4.96 Normal 3.90-5.60 [facility] 600 DO Work Phone: Platelet mean volume Auto (B ld) [Entitic vol]Ordered By: Angel Woods on 10-29-2021 Platelet mean volume (Bld) [Entitic vol] 9.0 fL 6.6-10.1 [facility] Platelets Auto (Bld) [#/Vol] Ordered By: Angel Woods on 10-29-2021 Platelets (Bld) [#/Vol] 196 10*3/uL 150-450 [facility] RBC Auto (Bld) [#/Vol]Ordere d By: Angle Woods on 10-29-2021 RBC (Bld) [#/Vol] 4.96 10*6/uL 3.90-5.60 [facility] Serum or plasma calcium ozzie urement (mass/volume)Ordered By: Angel Woods on 10-29-2021 Calcium [Mass/Vol] 9.6 mg/dL 8.2-10.2 [facility] Serum or plasma chloride tatyana surement (moles/volume)Ordered By: Angel Woods on 10-29-2021 Chloride [Moles/Vol] 105 mmol/L 95-114 [facility] Serum or plasma glucose ozzie urement (mass/volume)Ordered By: Angel Woods on 10-29-2021 Glucose [Mass/Vol] 117 mg/dL 70-100 [facility] Comment on above: ADA recommended refe [...] plasma potassium me asurement (moles/volume)Ordered By: Angel Woods on 10-29-2021 Potassium [Moles/Vol] 3.5 mmol/L 3.5-5.1 [facility] Serum or plasma sodium measu rement (moles/volume)Ordered By: Angel Woods on 10-29-2021 Sodium [Moles/Vol] 139 mmol/L 136-146 [facility] Serum or plasma total carbon dioxide measurement (moles/volume)Ordered By: Angel Woods on 10-29-2021 CO2 [Moles/Vol] 23.9 mmol/L 22.0-30.0 [facility] Serum or plasma urea nitroge n measurement (mass/volume)Ordered By: Angel Woods on 10-29-2021 Urea nitrogen [Mass/Vol] 14 mg/dL 9- [facility] Office Visit (Cardiology)on 10-24-2021 Follow-up visit [...] AMBULATORY; Status:Hold For - Specimen/Data Collection; Requested for:[id number]; RESIDENT IN CONGREGATE CARE SETTING? : No [...] Status: Hold For - Scheduling Requested for: 16Jan2022 Pacemaker Generator Change; Status:Active; Requested for:24Oct2021; SocHx: Former smoker Tobacco Use Screening; Status:Complete; Done: 24Oct2021 Patient Instructions By signing my name below, IMarivel LPN, Scribe, attest that this documentation has been prepared under the direction and in the presence of Dr. Angel Woods MD. All medical record entries made by [...] up in 3 months Chief Complaint ALAN ROTH is being seen for a cardiovascular evaluation [...] MG O (more content not included)... Normal [employer] Tobacco Screening.on 022 Adult depression screening assessment No [facility] 250 DO Work Phone: Fall risk assessment a) No falls within the last year [facility] 250 DO Work Phone: Tobacco use status CPHS b) No [facility] 250 DO Work Phone: Vital Signs Date Time Vital Sign Value Performing Clinician Facility 11-23-2024 10:01-0400 Diastolic blood pressure 52 mm[Hg] Danilo Gardner MD Work Phone: [facility] 11-23-2024 10:01-0400 Systolic blood pressure 92 mm[Hg] Danilo Gardner MD Work Phone: [facility] 11-23-2024 09:57-0400 Body height 180.3 cm Danilo Gardner MD Work Phone: [facility] 11-23-2024 09:57-0400 Body mass index (BMI) [Ratio] 25.52 kg/m2 Danilo Gardner MD Work Phone: [facility] 11-23-2024 09:57-0400 Body weight 83.01 kg Danilo Gardner MD Work Phone: [facility] 11-23-2024 09:57-0400 Heart rate 72 /min Danilo Gardner MD Work Phone: [facility] 11-19-2024 15:41-0400 Body temperature 97 [degF] Beto Hunter MD Work Phone: [facility] 11-19-2024 15:41-0400 Diastolic blood pressure 62 mm[Hg] Beto Hunter MD Work Phone: [facility] 11-19-2024 15:41-0400 Heart rate 70 /min Beto Hunter MD Work Phone: [facility] 11-19-2024 15:41-0400 Respiratory rate 14 /min Beto Hunter MD Work Phone: [facility] 11-19-2024 15:41-0400 SaO2% (BldA) [Mass fraction] 90 % Beto Hunter MD Work Phone: [facility] 11-19-2024 15:41-0400 Systolic blood pressure 149 mm[Hg] Beto Hunter MD Work Phone: [facility] 11-17-2024 13:08-0400 Body height 180.3 cm Beto Hunter MD Work Phone: [facility] 11-17-2024 13:08-0400 Body mass index (BMI) [Ratio] 25.69 kg/m2 Beto Hunter MD Work Phone: [facility] 11-17-2024 13:08-0400 Body weight 83.5 kg Beto Hunter MD Work Phone: [facility] 10-18-2024 15:32-0400 Diastolic blood pressure 70 mm[Hg] Danilo Gardner MD Work Phone: [facility] 10-18-2024 15:32-0400 Systolic blood pressure 122 mm[Hg] Danilo Gardner MD Work Phone: [facility] 10-18-2024 15:04-0400 Body height 180.3 cm Danilo Gardner MD Work Phone: [facility] 10-18-2024 15:04-0400 Body mass index (BMI) [Ratio] 25.66 kg/m2 Danilo Gardner MD Work Phone: [facility] 10-18-2024 15:04-0400 Body weight 83.46 kg Danilo Gardner MD Work Phone: [facility] 10-18-2024 15:04-0400 Heart rate 64 /min Danilo Gardner MD Work Phone: [facility] 06-08-2024 11:28-0500 Body height 180.34 cm [facility] 06-08-2024 11:28-0500 Body mass index (BMI) [Ratio] 25.7 kg/m2 [facility] 06-08-2024 11:28-0500 Body weight 83.91 kg [facility] 06-08-2024 11:28-0500 Diastolic blood pressure 72 mm[Hg] [facility] 06-08-2024 11:28-0500 Heart rate 72 /min [facility] 06-08-2024 11:28-0500 Respiratory rate 20 /min [facility] 06-08-2024 11:28-0500 Systolic blood pressure 142 mm[Hg] [facility] 03-16-2024 10:31-0400 Body height 180.3 cm Danilo Gardner MD Work Phone: [facility] 03-16-2024 10:31-0400 Body mass index (BMI) [Ratio] 25.8 kg/m2 Danilo Gardner MD Work Phone: [facility] 03-16-2024 10:31-0400 Body weight 83.92 kg Danilo Gardner MD Work Phone: [facility] 03-16-2024 10:31-0400 Diastolic blood pressure 62 mm[Hg] Danilo Gardner MD Work Phone: [facility] 03-16-2024 10:31-0400 Heart rate 68 /min Danilo Gardner MD Work Phone: [facility] 03-16-2024 10:31-0400 Systolic blood pressure 98 mm[Hg] Danilo Gardner MD Work Phone: [facility] 12-06-2023 11:35-0400 Body height 180.34 cm [facility] 12-06-2023 11:35-0400 Body mass index (BMI) [Ratio] 26.6 kg/m2 [facility] 12-06-2023 11:35-0400 Body weight 86.74 kg [facility] 12-06-2023 11:35-0400 Diastolic blood pressure 65 mm[Hg] [facility] 12-06-2023 11:35-0400 Heart rate 72 /min [facility] 12-06-2023 11:35-0400 Respiratory rate 16 /min [facility] 12-06-2023 11:35-0400 Systolic blood pressure 98 mm[Hg] [facility] 06-14-2023 08:26-0500 Body height 180.3 cm Angel Woods MD Work Phone: [facility] 06-14-2023 08:26-0500 Body mass index (BMI) [Ratio] 27.89 kg/m2 Angel Woods MD Work Phone: [facility] 06-14-2023 08:26-0500 Body weight 90.72 kg Angel Woods MD Work Phone: [facility] 06-14-2023 08:26-0500 Diastolic blood pressure 64 mm[Hg] Angel Woods MD Work Phone: [facility] 06-14-2023 08:26-0500 Heart rate 86 /min Angel Woods MD Work Phone: [facility] 06-14-2023 08:26-0500 Systolic blood pressure 98 mm[Hg] Angel Woods MD Work Phone: [facility] 04-05-2023 11:30-0400 Body height 180.34 cm Ferny Ball Other [employer] Other 04-05-2023 11:30-0400 Body mass index (BMI) [Ratio] 26.66 kg/m2 Ferny Ball Other [facility] Other 04-05-2023 11:30-0400 Body weight 86.73 kg Ferny Birdi Other [facility] Other 04-05-2023 11:30-0400 Diastolic blood pressure 59 mm[Hg] Ferny Birdi Other [facility] Other 04-05-2023 11:30-0400 Respiratory rate 12 /min Ferny Ball Other [facility] Other 04-05-2023 11:30-0400 Systolic blood pressure 92 mm[Hg] Ferny Ball Other [facility] Other 01-13-2023 13:14-0400 Blood Pressure Location Silsa CATAL[facility] 01-13-2023 13:14-0400 Diastolic blood pressure 62 mm[Hg] Silas [facility] 01-13-2023 13:14-0400 Heart rate 76 /min Silas [facility] 01-13-2023 13:14-0400 Respiratory rate 16 /min Silas CATALAN [facility] [place] 01-13-2023 13:14-0400 Systolic blood pressure 110 mm[Hg] Silas CATALAN [facility] [place] 09-18-2022 14:52-0500 Body height 180.34 cm Caesar Glover Work Phone: [facility] 250 DO Work Phone: 09-18-2022 14:52-0500 Body mass index (BMI) [Ratio] 27.48 kg/m2 Caesar Glover Work Phone: [facility] 250 DO Work Phone: 09-18-2022 14:52-0500 Body surface area Derived from formula 2.1 m2 Caesar Glover Work Phone: [facility] 250 DO Work Phone: 09-18-2022 14:52-0500 Body weight 89.36 kg Caesar Glover Work Phone: [facility] 250 DO Work Phone: 09-18-2022 14:52-0500 Diastolic blood pressure 78 mm[Hg] aCesar Glover Work Phone: [facility] 250 DO Work Phone: 09-18-2022 14:52-0500 Heart rate 66 /min Caesar Glover Work Phone: [facility] 250 DO Work Phone: 09-18-2022 14:52-0500 Systolic blood pressure 122 mm[Hg] Caesar Glover Work Phone: [facility] 250 DO Work Phone: 08-10-2022 11:41-0500 65 1 Caesar Glover Work Phone: [facility] Work Phone: Comment on above: [id number] 07-02-2022 14:41-0500 56 1 Caesar Glover Work Phone: [facility] 250 DO Work Phone: Comment on above: [id number] 06-18-2022 12:59-0500 Body height 180.34 cm Caesar Glover Work Phone: [facility] 250 DO Work Phone: 06-18-2022 12:59-0500 Body mass index (BMI) [Ratio] 27.2 kg/m2 Caesar Glover Work Phone: [facility] 250 DO Work Phone: 06-18-2022 12:59-0500 Body surface area Derived from formula 2.09 m2 Caesar Glover Work Phone: [facility] 250 DO Work Phone: 06-18-2022 12:59-0500 Body weight 88.45 kg Caesar Glover Work Phone: [facility] 250 DO Work Phone: 06-18-2022 12:59-0500 Diastolic blood pressure 76 mm[Hg] Caesar Glover Work Phone: [facility] 250 DO Work Phone: 06-18-2022 12:59-0500 Heart rate 68 /min Caesar Glover Work Phone: [facility] 250 DO Work Phone: 06-18-2022 12:59-0500 Systolic blood pressure 134 mm[Hg] Caesar Glover Work Phone: [facility] 250 DO Work Phone: 04-06-2022 08:55-0400 Body height 180.34 cm Caesar Glover Work Phone: [facility] 250 DO Work Phone: 04-06-2022 08:55-0400 Body mass index (BMI) [Ratio] 28.03 kg/m2 Caesar Glover Work Phone: [facility] 250 DO Work Phone: 04-06-2022 08:55-0400 Body surface area Derived from formula 2.11 m2 Caesar Glover Work Phone: [facility] 250 DO Work Phone: 04-06-2022 08:55-0400 Body weight 91.17 kg Caesar Glover Work Phone: [facility] 250 DO Work Phone: 04-06-2022 08:55-0400 Diastolic blood pressure 92 mm[Hg] Caesar Glover Work Phone: [facility] 250 DO Work Phone: 04-06-2022 08:55-0400 Heart rate 80 /min Caesar Glover Work Phone: [facility] 250 DO Work Phone: 04-06-2022 08:55-0400 Systolic blood pressure 170 mm[Hg] Caesar Glover Work Phone: [facility] 250 DO Work Phone: 03-04-2022 12:00-0400 52 1 Caesar Glover Work Phone: [facility] [address] [place] Work Phone: Comment on above: [id number] 03-03-2022 09:34-0400 Body height 180.34 cm Caesar Glover Work Phone: [facility] 250 DO Work Phone: 03-03-2022 09:34-0400 Body mass index (BMI) [Ratio] 28.17 kg/m2 Caesar Glover Work Phone: [facility] 250 DO Work Phone: 03-03-2022 09:34-0400 Body surface area Derived from formula 2.12 m2 Caesar lGover Work Phone: [facility] 250 DO Work Phone: 03-03-2022 09:34-0400 Body weight 91.63 kg Caesar Glover Work Phone: [facility] 250 DO Work Phone: 03-03-2022 09:34-0400 Diastolic blood pressure 88 mm[Hg] Caesar Glover Work Phone: [facility] 250 DO Work Phone: 03-03-2022 09:34-0400 Heart rate 60 /min Caesar Glover Work Phone: [facility] 250 DO Work Phone: 03-03-2022 09:34-0400 Systolic blood pressure 136 mm[Hg] aCesar Glover Work Phone: [facility] 250 DO Work Phone: 11-13-2021 16:16-0400 Body height 180.34 cm Caesar Glover Work Phone: [facility] 250 DO Work Phone: 11-13-2021 16:16-0400 Body mass index (BMI) [Ratio] 27.48 kg/m2 Caesar Glover Work Phone: [facility] 250 DO Work Phone: 11-13-2021 16:16-0400 Body surface area Derived from formula 2.1 m2 Caesar Glover Work Phone: [facility] 250 DO Work Phone: 11-13-2021 16:16-0400 Body temperature 98.1 [degF] Caesar Glover Work Phone: [facility] 250 DO Work Phone: 11-13-2021 16:16-0400 Body weight 89.36 kg Caesar Glover Work Phone: [facility] 250 DO Work Phone: 11-13-2021 16:16-0400 Diastolic blood pressure 72 mm[Hg] Caesar Glover Work Phone: [facility] 250 DO Work Phone: 11-13-2021 16:16-0400 Heart rate 72 /min Caesar Glover Work Phone: [facility] 250 DO Work Phone: 11-13-2021 16:16-0400 Systolic blood pressure 136 mm[Hg] Caesar Glover Work Phone: [facility] 250 DO Work Phone: 11-06-2021 11:23-0400 Diastolic blood pressure 51 mm[Hg] MD Caesar Glover Work Phone: [facility] 11-06-2021 11:23-0400 Heart rate 60 /min MD Caesar Glover Work Phone: [facility] 11-06-2021 11:23-0400 Respiratory rate 20 /min MD Caesar Glover Work Phone: [facility] 11-06-2021 11:23-0400 SaO2% (BldA) [Mass fraction] 93 % MD aCesar Glover Work Phone: [facility] 11-06-2021 11:23-0400 Systolic blood pressure 104 mm[Hg] MD Caesar Glover Work Phone: [facility] 11-06-2021 09:38-0400 Inhaled oxygen flow rate 8 L/min MD Caesar Glover Work Phone: [facility] 11-06-2021 08:26-0400 Body height 176.53 cm MD Caesar Glover Work Phone: [facility] 11-06-2021 08:26-0400 Body mass index (BMI) [Ratio] 28.5 kg/m2 MD Caesar Glover Work Phone: [facility] 11-06-2021 08:26-0400 Body weight 89 kg MD Caesar Glover Work Phone: [facility] 11-06-2021 07:29-0400 Body temperature 98.1 [degF] MD Caesar Glover Work Phone: [facility] 10-24-2021 13:51-0400 Diastolic blood pressure 82 mm[Hg] Caesar Glover Work Phone: [facility] 250 DO Work Phone: 10-24-2021 13:51-0400 Systolic blood pressure 156 mm[Hg] Caesar Glover Work Phone: [facility] 250 DO Work Phone: 10-24-2021 13:47-0400 Body height 180.34 cm Caesar Glover Work Phone: [facility] 250 DO Work Phone: 10-24-2021 13:47-0400 Body mass index (BMI) [Ratio] 27.75 kg/m2 Caesar Glover Work Phone: [facility] 250 DO Work Phone: 10-24-2021 13:47-0400 Body surface area Derived from formula 2.1 m2 Caesar Glover Work Phone: [facility] 250 DO Work Phone: 10-24-2021 13:47-0400 Body weight 90.27 kg Caesar E Belen Work Phone: [facility] 250 DO Work Phone: 10-24-2021 13:47-0400 Diastolic blood pressure 88 mm[Hg] Caesar Perea Belen Work Phone: [facility] 250 DO Work Phone: 10-24-2021 13:47-0400 Heart rate 68 /min Caesar Perea Belen Work Phone: [facility] 250 DO Work Phone: 10-24-2021 13:47-0400 Systolic blood pressure 162 mm[Hg] Caesar E Belen Work Phone: [facility] 250 DO Work Phone: Encounters Encounter Date Encounter Type Care Provider Facility Start: 11-23-2024 End: 11-23-2024 Transitional care manage srvc 7 day discharge Danilo Gardner MD Work Phone: [facility] Comment on above: S/P TAVR (transcathe ter aortic valve replacement) (Primary Dx); Nonrheumatic aortic valve stenosis; Coronary artery disease, unspecified vessel or lesion type, unspecified whether angina present, unspecified whether [place] or transplanted heart; Second degree AV block, Mobitz type II; SSS (sick sinus syndrome) (Multi); S/P placement of cardiac pacemaker; Chronic a-fib (Multi); [employer] current use of anticoagulant therapy; Essential hypertension; Mixed hyperlipidemia; BMI 25.0-25.9,adult; Former smoker; Urinary retention; Gross hematuria Start: 11-23-2024 End: 11-23-2024 ambulatory DANILO LOPEZAHIM [facility] Ambulatory Start: 11-21-2024 ambulatory MD BETO HUNTER Facility:[facility] Start: 11-17-2024 End: 11-19-2024 Evaluation and management of inpatient Beto Hunter MD Work Phone: [facility] 7 Comment on above: Aortic stenosis (Nirmala sri Dx); Nonrheumatic aortic valve stenosis; S/P TAVR (transcatheter aortic valve replacement) Start: 11-14-2024 Evaluation and management of inpatient BETO HUNTER [facility] Start: 11-09-2024 End: 11-09-2024 Subsequent hospital visit by physician Jocy Remy 1 [facility] Comment on above: Nonrheumatic aortic valve stenosis Start: 11-09-2024 End: 11-09-2024 ambulatory AMANDA R WARD [facility] Start: 10-26-2024 End: 10-26-2024 ambulatory Ferny White Facility:[facility] Start: 10-24-2024 End: 10-24-2024 Patient encounter procedure Ferny Ball DO Work Phone: [facility] Xzd-Zgg-Taixnrft Testing Work Phone: Start: 10-24-2024 End: 10-24-2024 ambulatory Ferny Ball DO Work Phone: [facility] Work Phone: Start: 10-24-2024 Encounter for preprocedural laboratory examination Danilo Coates [facility] Start: 10-23-2024 End: 10-23-2024 Office outpatient new 45 minutes Antonio Medrano MD PhD Work Phone: [facility] Comment on above: Severe aortic stenos is Nonrheumatic aortic valve stenosis (Primary Dx) Start: 10-23-2024 End: 10-23-2024 ambulatory DANILO GARDNER [facility] Start: 10-19-2024 Non-patient / Non-visit Benjaminbetito in Ball DO Work Phone: [facility] Work Phone: Start: 10-18-2024 End: 10-18-2024 Office outpatient visit 40 minutes Danilo Gardner MD Work Phone: [facility] Comment on above: Severe aortic stenos is (Primary Dx); 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; CHB (complete heart block); S/P placement of cardiac pacemaker; Paroxysmal atrial fibrillation (Multi); Essential hypertension; Mixed hyperlipidemia; Former smoker; BMI 25.0-25.9,adult; Other emphysema (Multi); Oxygen dependent; Pulmonary hypertension (Multi) Start: 10-18-2024 End: 10-18-2024 ambulatory [facility] Start: 10-13-2024 End: 10-13-2024 Subsequent hospital visit by physician Jocy Dash Echo/Vasc Room 2 [facility] Comment on above: Aortic valve stenosi s, etiology of cardiac valve disease unspecified Start: 10-13-2024 End: 10-13-2024 ambulatory [facility] Start: 09-14-2024 End: 09-14-2024 Patient encounter procedure Ferny White DO Work Phone: [facility]-Pacemaker Check Start: 09-14-2024 End: 09-14-2024 ambulatory Ferny Elaina DO Work Phone: [facility] Work Phone: Start: 09-14-2024 Non-patient / Non-visit Benjam in Ball DO Work Phone: [facility] Start: 09-06-2024 Non-patient / Non-visit Benjam in Ball DO Work Phone: [facility] Work Phone: Start: 06-08-2024 End: 06-08-2024 ambulatory [facility] Work Phone: Start: 06-08-2024 End: 06-08-2024 Patient encounter procedure [facility] Work Phone: Start: 06-06-2024 Non-patient / Non-visit [facility] [place] Work Phone: Start: 05-31-2024 Non-patient / Non-visit [facility] Work Phone: Start: 03-16-2024 End: 03-16-2024 Office outpatient visit 25 minutes Danilo Gardner MD Work Phone: [facility] Comment on above: Chronic a-fib (Multi ); 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; CHB (complete heart block) (Multi); SSS (sick sinus syndrome) (Multi); S/P placement of cardiac pacemaker; Aortic valve stenosis, etiology of cardiac valve disease unspecified; Mixed hyperlipidemia; Essential hypertension; retirement current use of anticoagulant therapy; Overweight (BMI 25.0-29.9); Former smoker Start: 03-16-2024 End: 03-16-2024 ambulatory DANILO [facility] Ambulatory Start: 03-08-2024 End: 03-08-2024 Patient encounter procedure DO Ferny White Work Phone: [facility]-Pacemaker Check Start: 03-08-2024 End: 03-08-2024 ambulatory DO Ferny White Work Phone: [facility] Work Phone: Start: 03-06-2024 Non-patient / Non-visit DO Jose White Work Phone: [facility] Work Phone: Start: 12-06-2023 End: 12-06-2023 ambulatory [facility] Work Phone: Start: 12-06-2023 End: 12-06-2023 Patient encounter procedure [facility] Work Phone: Start: 06-14-2023 End: 06-14-2023 Office outpatient visit 25 minutes Angel Woods MD Work Phone: [facility] Comment on above: Coronary artery dise ase involving quartz valley coronary artery of quartz valley heart without angina pectoris (Primary Dx); CHB (complete heart block) (CMS/HCC); S/P placement of cardiac pacemaker; Mixed hyperlipidemia; Essential hypertension; Nonrheumatic aortic valve stenosis; Paroxysmal atrial fibrillation (CMS/HCC); Overweight (BMI 25.0-29.9) Start: 04-05-2023 End: 04-05-2023 ambulatory Ferny White Other [employer] Other Start: 04-05-2023 Office outpatient vi sit 25 minutes Ferny White [facility] Start: 03-23-2023 End: 03-23-2023 ambulatory Caesar Glover Other [employer] Other Start: 03-23-2023 Telephone encounter Caesar Glover [facility] Start: 03-08-2023 End: 03-08-2023 ambulatory MD Caesar Glover Work Phone: [facility] Work Phone: Start: 03-08-2023 End: 03-08-2023 Patient encounter procedure MD Caesar Glover Work Phone: [facility]-Pacemaker Check Start: 03-01-2023 End: 03-01-2023 ambulatory Caesar Glover Other [employer] Other Start: 03-01-2023 Telephone encounter Caesar Glover [facility] Start: 02-17-2023 End: 02-17-2023 ambulatory Ferny White Other [employer] Other Start: 02-17-2023 Telephone encounter Ferny White [facility] Start: 02-11-2023 End: 02-11-2023 ambulatory Ferny White Other [employer] Other Start: 02-11-2023 Telephone encounter Ferny White [facility] Start: 01-22-2023 Image Encounter Caesar Glover Work Phone: [facility] 250 DO Work Phone: Start: 01-13-2023 End: 01-13-2023 Patient encounter procedure Silas CATALAN General Surgery Nill/Said Jenna Start: 12-24-2022 End: 12-24-2022 ambulatory Ferny White Other [facility] [employer] Other Start: 12-24-2022 Telephone encounter Feryn White [facility] Start: 10-26-2022 Rx Renewal Caesar Glover Work Phone: [facility] 250 DO Work Phone: Start: 09-18-2022 FUV, Provider: Angel Woods, Status: Pen, Time: 2:50 PM Caesar Glover Work Phone: [facility] 600 DO Work Phone: Start: 09-18-2022 Office outpatient vi sit 25 minutes Caesar Glover Work Phone: [facility] 250 DO Work Phone: Start: 09-16-2022 Telephone encounter Caesar owens Work Phone: [facility] 600 DO Work Phone: Start: 09-03-2022 End: 09-03-2022 ambulatory MD Caesar Glover Work Phone: [facility] Work Phone: Start: 09-03-2022 End: 09-03-2022 Patient encounter procedure MD Caesar Glover Work Phone: [facility]-Pacemaker Check Start: 08-14-2022 ambulatory STALIN ONOFRE Facility:H 1 Start: 08-10-2022 End: 08-11-[address] DOCTOR DOUGHERTY Facility:H1 Start: 07-30-2022 AUDIT Caesar Glover Work Phone: [facility] Work Phone: Start: 07-30-2022 End: 07-31-[address] CAESAR GLOVER Facility:H1 Start: 07-08-2022 Patient encounter procedure Caesar Glover Work Phone: [facility] 250 DO Work Phone: Start: 07-02-2022 End: 07-03-[address] ANGEL WOODS Facility:H1 Start: 06-18-2022 Office outpatient vi sit 25 minutes Caesar Glover Work Phone: [facility] 250 DO Work Phone: Start: 06-03-2022 End: 06-03-2022 ambulatory MD Caesar Glover Work Phone: [facility] Work Phone: Start: 06-03-2022 End: 06-03-2022 Patient encounter procedure MD Caesar Glover Work Phone: [facility]-Pacemaker Check Start: 05-14-2022 Chart Update Caesar Glover Work Phone: [facility] 600 DO Work Phone: Start: 05-14-2022 Adult health examination Basil min Ball Other [facility] [employer] Other Start: 05-07-[address] ANGEL MITCHELL II Facility:[id number] Start: 04-06-2022 Office outpatient vi sit 25 minutes Caesar Glover Work Phone: [facility] 250 DO Work Phone: Start: 03-04-2022 Patient encounter procedure Caesar Glover Work Phone: [facility] [address] [place] Work Phone: Start: 03-04-2022 STRESS NUC, Provider : [place] [facility],[id number], Status: Pen, Time: 12:00 PM Caesar Glover Work Phone: [facility] 250 DO Work Phone: Start: 03-04-[address] ANGEL MITCHELL II Facility:[id number] Start: 03-03-2022 Office outpatient vi sit 25 minutes Caesar Glover Work Phone: [facility] 250 DO Work Phone: Start: 02-26-2022 End: 02-26-2022 Patient encounter procedure MD Caesar Glover Work Phone: [facility]-Pacemaker Check Start: 02-02-2022 End: 02-03-2022 ambulatory [facility] Facility:H1 Start: 12-23-2021 End: 12-24-2021 ambulatory [facility] Facility: Start: 12-22-2021 End: 12-22-2021 Patient encounter procedure MD Caesar Glover Work Phone: [facility]-Pacemaker Check Start: 11-13-2021 Postop follow up vis it related to original px Caesar Glover Work Phone: [facility] 250 DO Work Phone: Start: 11-06-2021 [facility], Provider: Angel Woods, Status: Pen, Time: 9:00 AM Caesar Glover Work Phone: [facility] 250 DO Work Phone: Start: 11-06-2021 End: 11-06-2021 Admission to same day surgery center MD Caesar Glover Work Phone: [facility] [place] Start: 11-05-2021 Chart Update Caesar Glover Work Phone: [facility] 250 DO Work Phone: Start: 11-04-2021 End: 11-04-2021 Patient encounter procedure MD Caesar Glover Work Phone: [facility] Uft-Edt-Rjnfjrnq Testing Start: 10-30-2021 Chart Update Caesar Glover Work Phone: [facility] 600 DO Work Phone: Start: 10-29-2021 End: 10-29-2021 Patient encounter procedure MD Caesar Glover Work Phone: [facility] Lza-Uom[facility]Ohdorm[facility] Testing Start: 10-24-2021 Office outpatient ne w 60 minutes Caesar Glover Work Phone: [facility] 250 DO Work Phone: Start: 09-19-2021 End: 09-19-2021 Patient encounter procedure MD Caesar Glover Work Phone: [facility]-Pacemaker Check Start: 06-23-2021 End: 06-23-2021 Patient encounter procedure MD Caesar Glover Work Phone: [facility]-Pacemaker Check Procedures Date Procedure Procedure Detail Performing Clinician Start: 11-19-2024 Urinalysis microscop ic panel - Urine Qualitative by Automated Sachin Rubalcava MD Work Phone: Start: 11-19-2024 Urnls dip stick/tabl et reagent auto microscopy Sachin Rubalcava MD Work Phone: Start: 11-19-2024 Basic metabolic pane l calcium total Amanda R Ward [employer] MILLER[employer]BENCH SHEAR OPERATOR Work Phone: Start: 11-19-2024 Radiologic exam ches t single view Amanda R Ward [employer]BENCH SHEAR OPERATOR Work Phone: Start: 11-18-2024 2D TTE w or w/o fol w/con,fu Amanda R Ward [employer]BENCH SHEAR OPERATOR Work Phone: Start: 11-18-2024 Basic metabolic pane l calcium total Amanda R Ward SPICE MILLER-BENCH SHEAR OPERATOR Work Phone: Start: 11-18-2024 Radiologic exam ches t single view Amanda R Ward SPICE MILLER-BENCH SHEAR OPERATOR Work Phone: Start: 11-17-2024 Radiologic exam ches t single view Amanda R Ward SP[employer] MILLER-BENCH SHEAR OPERATOR Work Phone: Start: 11-17-2024 Basic metabolic pane l calcium total Amanda R Ward SP[employer] MILLER-BENCH SHEAR OPERATOR Work Phone: Start: 11-17-2024 Echo transthorc r-t 2d w/wo m-mode rec f-up/lmtd Amanda Oz Ward SP[employer] MILLER[employer]BENCH SHEAR OPERATOR Work Phone: Start: 11-17-2024 PULSE OXIMETRY, CONTINUOUS Amanda Oz Ward SP[employer] MILLER-BENCH SHEAR OPERATOR Work Phone: Start: 11-17-2024 End: 11-17-2024 Coagulation time activated Beto emmanuel MD Work Phone: Start: 11-17-2024 VERAB/VERIFY ABORH Justice t R Ward [employer] MILLER[employer]BENCH SHEAR OPERATOR Work Phone: Start: 11-17-2024 Blood typing serolog ic rh (d) Amanda R Ward SP[employer] MILLER[employer]BENCH SHEAR OPERATOR Work Phone: Start: 10-13-2024 Echo tthrc r-t 2d w/wom-mode compl spec&colr d Danilo Gardner MD Work Phone: Start: 02-10-2023 Colonoscopy Angel Mitchell MD Work Phone: Start: 11-06-2021 Implantation of card iac pacemaker MD Caesar Glover Work Phone: Start: 11-06-2021 End: 11-06-2021 Plain chest X-ray MD Caesar Glover Work Phone: Start: 11-08-2018 Screening for malign ant neoplasm of prostate Ferny Ball Other Angioplasty of blood vessel Silas CATALAN Colonoscopy Silas CATALAN Depression screening Benjami n Ball Other Implantation of card iac pacemaker Silas CATALAN Insertion of pacemak er pulse generator Caesar Glover Work Phone: Percutaneous translu mahnaz coronary angioplasty Caesar Glover Work Phone: Placement of stent i n cardiac conduit Silas CATALAN Screening for malign ant neoplasm of prostate Ferny Ball Other Total colonoscopy Caesar owens Work Phone: Plan of Treatment Date Care Activity Detail Author Start: 07-01-2033 DTaP/Tdap/Td Vaccines (2 - Td or Tdap) DTaP/Tdap/Td Vaccines (2 - Td or Tdap) [facility] Start: 07-01-2033 DTaP/Tdap/Td Vaccines (3 - Td or Tdap) DTaP/Tdap/Td Vaccines (3 - Td or Tdap) [facility] Start: 02-10-2033 Screening for malignant neoplasm of colon [facility] Start: 11-19-2025 Creatinine measurement Creatinine Level [facility] Start: 11-19-2025 Potassium measurement Potassium Level [facility] Start: 11-18-2025 Echocardiography Echocardiogram [facility] Start: 11-16-2025 End: 11-16-2025 Telemedicine consultation with patient 11/16/2025 9:30 AM EDT Telemedicine Clinical Support [facility] [address] [address] [facility] [address] [place] [id number] [facility] Start: 02-06-2025 End: 02-06-2025 Patient encounter procedure 02/06/2025 11:30 AM EDT Office Visit [facility] [address] [place] [address] Danilo Gardner [facility] [address] [facility] [place] [address] [facility] Start: 01-24-2025 End: 01-24-2025 Patient encounter procedure 01/24/2025 8:45 AM EDT Appointment [facility] [address] [facility] [address] [place] [address] [facility] Start: 12-21-2024 End: 12-21-2024 Telemedicine consultation with patient 12/21/2024 1:30 PM EDT Telemedicine Clinical Support [facility] [address] [place] [address] [facility] Start: 12-10-2024 End: 02-16-2025 US Heart Transthoracic Transthoracic echo (TTE) complete Echocardiography Routine S/P TAVR (transcatheter aortic valve replacement) Expected: 12/10/2024, Expires: 02/16/2025 [facility] Work Phone: Comment on above: Expected: 12/10/2024, Expires: Start: 11-24-2024 End: 12-17-2024 Basic metabolic 2000 panel - Serum or Plasma Basic Metabolic Panel Lab Routine Nonrheumatic aortic valve stenosis S/P TAVR (transcatheter aortic valve replacement) Expected: 11/24/2024 (Approximate), Expires: 12/17/2024 [facility] Work Phone: Comment on above: Expected: 11/24/2024 (Approximate), Expi res: 12/17/2024 Start: 11-24-2024 End: 12-17-2024 CBC panel - Blood by Automated count CBC Lab Routine Nonrheumatic aortic valve stenosis S/P TAVR (transcatheter aortic valve replacement) Expected: 11/24/2024 (Approximate), Expires: 12/17/2024 [facility] Service Area Work Phone: Comment on above: Expected: 11/24/2024 (Approximate), Expi res: 12/17/2024 Start: 11-24-2024 Orders Only 11/24/2024 Orders Only [facility] [address] [facility] [address] [place] [address] Amanda Ward, SP[employer] MILLER[employer]BENCH SHEAR OPERATOR [address] [place] [address] Nonrheumatic aortic valve stenosis; S/P TAVR (transcatheter aortic valve replacement) [facility] Comment on above: Nonrheumatic aortic valve stenosis; S/P TAVR (transcatheter aortic valve replacement) Start: 11-09-2024 End: 11-09-2024 Patient encounter procedure 11/09/2024 9:30 AM EDT Appointment [facility] [address] [place] [address] [facility] Start: 10-18-2024 End: 10-18-2024 Patient encounter procedure 10/18/2024 3:10 PM EDT Office Visit [facility] [address] [place] [address] Danilo Gardner MD [address] [place] [address] [facility] Start: 10-18-2024 End: 10-18-2024 Patient encounter procedure 10/18/2024 10:30 AM EDT Office Visit [facility] [address] [place] [address] Danilo Gardner MD [address] [facility] [place] [address] [facility] Start: 09-28-2024 End: 09-28-2024 Patient encounter procedure 09/28/2024 10:45 AM EDT Appointment [place] [address] [facility] [address] [place] [address] [facility] Start: 09-15-2024 End: 03-16-2026 Heart Transthoracic Transthoracic Echo Complete Echocardiography Routine Aortic valve stenosis, etiology of cardiac valve disease unspecified Expected: 09/15/2024 (Approximate), Expires: 03/16/2026 [facility] Service Area Work Phone: Comment on above: Expected: 09/15/2024 (Approximate), Expi res: 03/16/2026 Start: 03-19-2024 COVID-19 Vaccine ( season) COVID-19 Vaccine ( season) [facility] Start: 03-19-2024 Influenza vaccination Influenza Vaccine (#1) [facility] Start: 03-07-2024 End: 03-07-2024 Patient encounter procedure 03/07/2024 9:40 AM EDT Office Visit [facility] [address] [facility] [address] [place] [address] Angel Woods MD [address] [place] [address] [facility] Start: 08-31-2023 COVID-19 Vaccine () COVID-19 Vaccine ( season) [facility] Start: 06-25-2023 COVID-19 Vaccine (5 - Pfizer series) COVID-19 Vaccine (5 - Pfizer series) [facility] Start: 05-28-2023 FUV, Provider: Angel Woods, Status: Pen, Time: 2:50 PM FUV, Provider: Angel Woods, Status: Pen, Time: 2:50 PM [facility] Work Phone: Start: 01-08-2023 FUV, Provider: Angel Woods, Status: Pen, Time: 2:30 PM FUV, Provider: Angel Woods, Status: Pen, Time: 2:30 PM [facility] DO Work Phone: Start: 08-14-2022 ECHO, Provider: [place] [facility]TR[facility] 01,[id number], Status: Pen, Time: 10:45 AM ECHO, Provider: [place] [facility] 01,[id number], Status: Pen, Time: 10:45 AM [facility] Work Phone: Start: 08-13-2022 PST, Provider: KATIE BENTLEY 6TH FLR PFT WALKWAY,PULM, Status: Pen, Time: 2:30 PM PST, Provider: KATIE BENTLEY 6TH FLR PFT WALKWAY,PULM, Status: Pen, Time: 2:30 PM [facility] Work Phone: Start: 08-13-2022 PFT, Provider: KATIE BENTLEY 6TH FLR PFT RM 2,PULM, Status: Pen, Time: 1:30 PM PFT, Provider: [facility] 6TH FLR PFT RM 2,PULM, Status: Pen, Time: 1:30 PM [facility] Work Phone: Start: 08-13-2022 ABG, Provider: KATIE BENTLEY 6TH FLR PFT RM 2,PULM, Status: Pen, Time: 1:15 PM ABG, Provider: [facility] 6TH FLR PFT RM 2,PULM, Status: Pen, Time: 1:15 PM [facility] Work Phone: Start: 06-18-2022 FUV, Provider: Angel Woods, Status: Pen, Time: 1:00 PM FUV, Provider: Angel Woods, Status: Pen, Time: 1:00 PM [facility] Work Phone: Start: 05-07-2022 CAROTID, Provider: [place] [facility]TR[facility] 01,[id number], Status: Pen, Time: 10:45 AM CAROTID, Provider: [place] [facility] 01,[id number], Status: Pen, Time: 10:45 AM [facility] 250 DO Work Phone: Start: 04-06-2022 FUV, Provider: Angel Woods, Status: Pen, Time: 8:50 AM FUV, Provider: Angel Woods, Status: Pen, Time: 8:50 AM [facility] 250 DO Work Phone: Start: 03-03-2022 FUV, Provider: Angel Woods, Status: Pen, Time: 9:20 AM FUV, Provider: Angel Woods, Status: Pen, Time: 9:20 AM [facility] 250 DO Work Phone: Start: 11-13-2021 KAROLYN, Provider: ELLIE TINEO [employer]ED [employer]ODUCTS INSPECTOR TRIMMER 1,[id number], Status: Pen, Time: 9:30 AM KAROLYN, Provider: ELLIE TINEO [employer]ODU[employer] INSPECTOR TRIMMER 1,[id number], Status: Pen, Time: 9:30 AM [facility] 250 DO Work Phone: Start: 11-07-2021 Plain chest X-ray XR chest 2V* [facility] Start: 11-06-2021 [facility], Provider: Angel Woods, Status: Pen, Time: 9:00 AM [facility], Provider: Angel Woods, Status: Pen, Time: 9:00 AM [facility] 250 DO Work Phone: Start: 2012 Abdominal aortic aneurysm screening Abdominal Aortic Aneurysm (AAA) Screening [facility] Start: 1997 Zoster Vaccines (1 of 2) Zoster Vaccines (1 of 2) [facility] Start: 1969 DTaP/Tdap/Td Vaccines (1 - Tdap) DTaP/Tdap/Td Vaccines (1 - Tdap) [facility] Start: 1965 Diabetes mellitus screening Diabetes Screening [facility] Start: 1965 Hepatitis C screening Hepatitis C Screening [facility] Start: 1947 Lipid panel Lipid Panel [facility] Start: 1947 Medicare Annual Wellness Visit Medicare Annual Wellness Visit (AWV) [facility] Start: 1947 Screening for malignant neoplasm of colon [facility] End: 11-19-2024 Bacteria identified in Urine by Culture [facility] Work Phone: Comment on above: Once (Lab) for 1 Occurrences starting until 11/19/2024 End: 11-20-2024 Basic metabolic 2000 panel - Serum or Plasma Basic Metabolic Panel Lab Routine Morning draw (Lab) for 3 Occurrences starting 11/18/2024 until 11/20/2024, 2 completed [facility] Work Phone: Comment on above: Morning draw (Lab) for 3 Occurrences sta rting 11/18/2024 until 11/20/2024, 2 completed Cardiac Catheterizat ion - Onbase Scan Cardiac Catheterization - Onbase Scan Cardiac Cath Routine Severe aortic stenosis Ordered: 10/18/2024 [facility] Work Phone: Comment on above: Ordered: 10/18/2024 End: 11-14-2024 Cardiac catheterization study [facility] Work Phone: Comment on above: Once for 1 Occurrences starting 11/15/19 until 11/14/2024 End: 11-17-2024 Cardiac Device Check - Surgery [facility] Work Phone: Comment on above: Once for 1 Occurrences starting 11/18/19 until 11/17/2024 End: 11-20-2024 CBC W Auto Differential panel - Blood CBC and Auto Differential Lab Routine Morning draw (Lab) for 3 Occurrences starting 11/18/2024 until 11/20/2024, 2 completed [facility] Work Phone: Comment on above: Morning draw (Lab) for 3 Occurrences sta rting 11/18/2024 until 11/20/2024, 2 completed Comprehensive metabo lic 2000 panel - Serum or Plasma [facility] End: 11-09-2024 CT Neck+Chest+Abdomen+Pelvis W contrast IV [facility] Work Phone: Comment on above: Once for 1 Occurrences starting 11/10/19 until 11/09/2024 End: 11-17-2024 Determination of physical activity tolerance Cardiac rehab evaluation Card Rehab Routine Once for 1 Occurrences starting 11/17/2024 until 11/17/2024 [facility] Work Phone: Comment on above: Once for 1 Occurrences starting 11/18/19 until 11/17/2024 End: 11-17-2024 ECG 12 lead [facility] Work Phone: Comment on above: Once for 1 Occurrences starting 11/18/19 until 11/17/2024 As needed until disc ontinued starting 11/17/2024 End: 11-19-2024 ECG 12 lead daily ECG 12 lead daily ECG Routine Daily for 3 Days starting 11/17/2024 until 11/19/2024 [facility] Work Phone: Comment on above: Daily for 3 Days starting 11/17/2024 unt il 11/19/2024 ECG 12 lead daily ECG 12 lead da radha ECG Routine 11/19/2024 6:03 AM EDT [facility] Work Phone: End: 11-19-2024 Extra Urine Rahman Tube [facility] Work Phone: Comment on above: Once for 1 Occurrences starting 11/20/19 until 11/19/2024 End: 11-17-2024 Incentive spirometry Instruct Incentive spirometry Instruct Respiratory Care Routine Once for 1 Occurrences starting 11/17/2024 until 11/17/2024 [facility] Work Phone: Comment on above: Once for 1 Occurrences starting 11/18/19 until 11/17/2024 End: 11-20-2024 Magnesium [Mass/volume] in Serum or Plasma Magnesium Lab Routine Morning draw (Lab) for 3 Occurrences starting 11/18/2024 until 11/20/2024, 2 completed [facility] Work Phone: Comment on above: Morning draw (Lab) for 3 Occurrences sta rting 11/18/2024 until 11/20/2024, 2 completed End: 11-20-2024 Prothrombin time (PT) Protime-INR Lab Routine Morning draw (Lab) for 3 Occurrences starting 11/18/2024 until 11/20/2024, 2 completed [facility] Work Phone: Comment on above: Morning draw (Lab) for 3 Occurrences sta rting 11/18/2024 until 11/20/2024, 2 completed End: 11-19-2024 Urinalysis complete W Reflex Culture panel - Urine [facility] Service Area Work Phone: Comment on above: STAT (Lab) for 1 Occurrences starting until 11/19/2024 [facility] Immunizations Immunization Date Immunization Notes Care Provider Patrick sullivan 04-26-2024 Seasonal trivalent influenza vaccine, adjuvanted, preservative free Danilo Gardner MD Work Phone: [facility] Work Phone: 12-14-2023 tetanus toxoid, redu blanca diphtheria toxoid, and acellular pertussis vaccine, adsorbed Danilo Gardner MD Work Phone: [facility] Work Phone: 05-17-2023 Pneumococcal conjuga te vaccine, 20-valent (PREVNAR 20) Danilo Gardner MD Work Phone: [facility] Work Phone: 05-17-2023 RESPIRATORY SYNCYTIA L VIRUS (RSV), ELIGIBLE PTS, 0.5 ML (ABRYSVO) Danilo Gardner MD Work Phone: [facility] Work Phone: 04-30-2023 influenza virus vaccine, unspecified formulation Angel Woods MD Work Phone: [facility] Work Phone: 05-18-2022 Pfizer COVID-19 Vac Bivalent 30 MCG/0.3ML Intramuscular Suspension Caesar Glover Work Phone: [facility] Comment on above: Result Comment: 2022: [id number] 05-18-2022 Pfizer Purple Cap SARS-CoV-2 Angel Woods MD Work Phone: [facility] Work Phone: 04-21-2022 influenza virus vaccine, split virus (incl. purified surface antigen) Ferny White Other [employer] Other 04-21-2022 influenza virus vaccine, unspecified formulation [facility] 04-18-2022 influenza virus vaccine, unspecified formulation [facility] 04-18-2022 influenza, high dose seasonal, preservative-free Caesar Glover Work Phone: [facility] DO Work Phone: Comment on above: Series: 05-21-2021 Pfizer-BioNTech COVID-19 Vacc 30 MCG/0.3ML Intramuscular Suspension Caesar Glover Work Phone: [facility] Comment on above: Result Comment: 2022: [id number] 05-05-2021 influenza virus vaccine, split virus (incl. purified surface antigen) Ferny White Other [employer] Other 05-05-2021 influenza virus vaccine, unspecified formulation [facility] 05-05-2021 Seasonal trivalent influenza vaccine, adjuvanted, preservative free Caesar E Glover Work Phone: [place] [address] DO Work Phone: 11-13-2020 Pfizer-BioNTech COVID-19 Vacc 30 MCG/0.3ML Intramuscular Suspension Caesar E Glover Work Phone: [facility] 10-23-2020 Pfizer-BioNTech COVID-19 Vacc 30 MCG/0.3ML Intramuscular Suspension Caesar E Glover Work Phone: [facility] 04-01-2020 influenza virus vaccine, split virus (incl. purified surface antigen) Ferny White Other [employer] Other 04-01-2020 influenza virus vaccine, unspecified formulation [facility] 04-01-2020 influenza, injectabl e, quadrivalent, contains preservative Caesar E Glover Work Phone: [place] [address] DO Work Phone: 05-05-2019 influenza virus vaccine, split virus (incl. purified surface antigen) Ferny White Other [employer] Other 05-05-2019 influenza virus vaccine, unspecified formulation [facility] 05-05-2019 influenza, injectabl e, quadrivalent, contains preservative Caesar E Glover Work Phone: [place] [address] DO Work Phone: 05-02-2018 influenza virus vaccine, split virus (incl. purified surface antigen) Ferny White Other [employer] Other 05-02-2018 influenza virus vaccine, unspecified formulation [facility] 05-02-2018 Seasonal trivalent influenza vaccine, adjuvanted, preservative free Caesar E Glover Work Phone: [facility] 250 DO Work Phone: 08-03-2017 diphtheria, tetanus toxoids and acellular pertussis vaccine, unspecified formulation Ferny White Other [facility] 08-03-2017 pneumococcal conjuga te vaccine, 13 valent Caesar E Glover Work Phone: [facility] 05-20-2017 influenza virus vaccine, split virus (incl. purified surface antigen) Ferny White Other [employer] Other 05-20-2017 influenza virus vaccine, unspecified formulation [facility] 05-20-2017 Seasonal trivalent influenza vaccine, adjuvanted, preservative free Caesar E Glover Work Phone: [facility] 250 DO Work Phone: 05-19-2016 influenza virus vaccine, unspecified formulation Caesar E Glover Work Phone: [facility] 250 DO Work Phone: 05-19-2016 Seasonal trivalent influenza vaccine, adjuvanted, preservative free Danilo Gardner MD Work Phone: [facility] 05-19-2015 influenza virus vaccine, unspecified formulation Caesar E Glover Work Phone: [facility] 250 DO Work Phone: 08-13-2014 pneumococcal polysaccharide vaccine, 23 valent Ferny White Other [facility] 04-23-2014 influenza virus vaccine, unspecified formulation Caesar E Glover Work Phone: [facility] 250 DO Work Phone: 04-18-2014 pneumococcal polysaccharide vaccine, 23 valent Caesar E Glover Work Phone: [facility] 250 DO Work Phone: 05-22-2013 influenza virus vaccine, unspecified formulation Caesar Perea [facility]over [facility] Work Phone: influenza virus vaccine, unspecified formulation Caesar Perea Glover Work Phone: [facility] 250 DO Work Phone: Comment on above: Apr 20122010 Payers Date Payer Category Payer Medicare [employer] MEDICARE [id number] 2023-Present [address] [place] [id number] 2023 Medicare (Managed Care) [facility] [id number] 2023 Private Health Insurance [id number] 1959 Medicare [id number] 1959 Private Health Insurance [id number] 1959 Self-pay [id number] 1945 Unknown [id number] 2.16.840.1.855420.3.579.2. 1068 1947 Unknown [id number] 2.16.840.1.854044.3.579.2. 1068 1947 Unknown [id number] 2.16.840.1.048215.3.579.2. 593 1947 Unknown [id number] 2.16.840.1.047108.3.579.2. 593 1947 Unknown [id number] 2.16.840.1.330594.3.579.2. 593 1947 Unknown [id number] 2.16.840.1.858851.3.579.2. 593 1947 Unknown [id number] 2..840.1.775227.3.579.2. 593 1947 Unknown [id number] 2.840.1.824990.3.579.2. 1246 1947 Unknown [id number] 2.16.840.1.312082.3.579.2. 1246 1947 Unknown [id number] 2.16.840.1.540918.3.579.2. 1244 1947 Unknown [id number] 2.840.1.257398.3.579.2. 1244 1947 Unknown [id number] 2.840.1.605626.3.579.2. 1244 1947 Unknown [id number] 2.16.840.1.950424.3.579.2. 727 1947 Unknown [id number] 2.16.840.1.629832.3.579.2. 1245 1947 Unknown [id number] 2.16.840.1.481656.3.579.2. 1245 1947 Unknown [id number] 2.16.840.1.724334.3.579.2. 1245 1947 Unknown [id number] 2.16.840.1.378828.3.579.2. 1245 Medicare [id number] Unknown [id number] Unknown Unknown [id number] 2.16.840.1.343414.3.579.2. 593 Unknown [id number] 2.16.840.1.883032.3.579.2. 531 Unknown [id number] 2.16.840.1.976680.3.579.2. 531 Unknown [id number] 2.16.840.1.544641.3.579.2. 531 Unknown [id number] 2.16.840.1.130331.3.579.2. 531 Social History Date Type Detail Facility Tobacco smoking stat [facility] Unknown if ever smoked [facility] Work Phone: Start: 1945 Sex Assigned At Male F [facility] Start: 06-14-2023 End: 11-18-2024 Daily caffeine consumption, 2-3 servings a day Daily caffeine consumption, 2-3 servings a day [facility] Comment on above: Quit 2019 <1 ppd; 2 cups coffee in mor christal; Start: 10-29-2021 End: 10-18-2024 Tobacco smoking status MNIS Ex-smoker (finding) [facility] Start: 06-14-2023 End: 11-18-2024 Sex Assigned At [facility] Tobacco smoking status Never Gener [facility] Jenna History of tobacco use Current smoker [facility] Work Phone: History of tobacco use Cigarette Smoker [facility] Work Phone: Start: 06-14-2023 End: 11-23-2024 Alcohol intake Lifetime non-drinker (finding) [facility] Work Phone: Start: 1945 Sex Assigned At Not on file [facility] Work Phone: Start: 06-04-2023 End: 11-23-2024 Exposure to SARS-CoV-2 (event) Not sure [facility] Start: 06-08-2024 End: 10-25-2024 Sex Male (finding) [facility] Start: 10-18-2024 Tobacco use and exposure Smokeless tobacco non-user [facility] Work Phone: Has the [facility], [place], or water [employer]. threatened to shut off services in your home in past 12Mo No [facility] Medical Equipment Procedure Code Equipment Code Equipment Origin al Text Equipment Identifier Dates Insertion, pacemaker Dual-chamber implantable pacemaker, rate-responsive [id number] FDA Start: 11-06-2021 Valve, Aortic, 2 9mm, Evolut Fx Transcatheter - [id number] Start: 11-17-2024 Goals Date Patient Goal Desired Activity /State Functional Status Date Assessment Result Facility 11-19-2024 Are you deaf, or do you have serious difficulty hearing No 11/19/2024 10:17 AM Xi Cruz, MILO No [facility] 11-19-2024 Are you blind, or do you have serious difficulty seeing, even when wearing glasses No 11/19/2024 10:17 AM Xi Cruz RN No [facility] Work Phone: 11-19-2024 Do you have serious difficulty walking or climbing stairs No 11/19/2024 10:17 AM Xi Cruz, MILO No [facility] Work Phone: 11-19-2024 Do you have difficul ty dressing or bathing No 11/19/2024 10:17 AM Xi Cruz, MILO No [facility] Work Phone: 11-19-2024 Because of a physica l, mental, or emotional condition, do you have difficulty doing errands alone such as visiting a physician's office or shopping No 11/19/2024 10:17 AM EDXi Valdovinos RN No [facility] Work Phone: 11-17-2024 [place] - suicide severity rating scale screener - recent [C-SSRS] [facility] Work Phone: 01-13-2023 Functional Status N/A General [facility] [place] Mental Status Date Assessment Result Facility 11-19-2024 Because of a physica l, mental, or emotional condition, do you have serious difficulty concentrating, remembering, or making decisions No 11/19/2024 10:17 AM EDT Xi Kunz RN No [facility] Work Phone: Clinical Notes 11-04-2021 to 11-23-2024 Danilo Gardner MD - 11/23/2024 9:50 AM EDTPatient InstructionsCare Plan - Xi Kunz RN - 11/19/2024 10:10 AM EDTCare Plan - Xi Kunz RN - 11/19/2024 10:10 AM EDTPatient Instructions Note Date & Type Note Facility 11-23-2024 History of Present illness Narrative Chief Complaint Patient presents with Follow-up [facility] hospital follow up, TAVR 11/17/24 Subjective Alan Roth is a 79 y.o. male HPI Patient is in the office for follow-up after having TAVR on November 17, 2024 at [facility], this visit serves as TCM visit within 1 week of discharge. While he was at [facility] he developed hematuria and urinary retention requiring placement of a Reinoso catheter which she still had. He will be seeing his PCP next week and hopefully that will be taken out. The urine that it collects now is clear in color. He is back on the Eliquis and on baby aspirin. He is oxygen dependent due to advanced COPD. He did not have any other complications related to his valve surgery. He reports no orthopnea or PND and no lower extremity edema palpitations or chest pain. The site of the procedure is without any complications. His blood pressure is sitting on the soft side and because of this hydrochlorothiazide will be discontinued and prior to that we discontinued lisinopril. His ejection fraction is normal after the TAVR based on the echocardiogram. Assessment/recommendations: 1-severe aortic stenosis, patient is status post TAVR 11/17/2024 at [facility] without any complications. His cardiac murmur has disappeared. Echocardiogram is scheduled January 22, 2025. He scheduled see me in the office on February 06, 2025. Reassurances were provided 2-permanent atrial fibrillation on Eliquis with controlled rate. No antiarrhythmics. Asymptomatic. Will continue to monitor 3-CAD with previous stenting of the anterior descending artery, cardiac catheterization 10/26/2024 demonstrated patent LAD stent with mild disease noted otherwise. Continue statin and aspirin. 4-sick sinus syndrome with a pacemaker in place. Last pacemaker check August 2024 was reviewed, patient had 31% mode switch, he is on Eliquis but no antiarrhythmics 5-essential hypertension, his blood pressure has been running on the low side therefore hydrochlorothiazide will be discontinued 6-high risk medication with Eliquis without any bleeding complications 7-severe COPD from previous tobacco abuse on home oxygen 8-hyperlipidemia on atorvastatin 20 mg daily currently on CQ 10 200 mg daily due to muscle cramps 9-moderate pulmonary hypertension based on echocardiogram November 2024, RVSP around 50 mmHg. No volume overload, no pleural effusions and no edema or ascites, continue to monitor 10-status post Reinoso catheter following TAVR due to urinary retention and hematuria. Hematuria has subsided despite being anticoagulated with Eliquis and being on aspirin. He is scheduled to see his PCP next week for the purpose of removal of the Reinoso catheter and if necessary follow-up with urology. Review of Systems Respiratory: Positive for shortness of breath. Neurological: Positive for dizziness. All other systems reviewed and are negative. Vitals: 11/23/24 0957 11/23/24 1001 BP: (!) 100/48 92/52 BP Location: Right arm Right arm Patient Position: Sitting Standing Pulse: 72 Weight: 83 kg (183 lb) Height: 1.803 m (5' 11 ) Objective Physical Exam Constitutional: Appearance: Normal appearance. HENT: Nose: Nose normal. Neck: Vascular: No carotid bruit. Cardiovascular: Rate and Rhythm: Normal rate. Rhythm irregularly irregular. Pulses: Normal pulses. Heart sounds: Normal heart sounds. Pulmonary: Effort: Pulmonary effort is normal. Breath sounds: Decreased air movement present. Abdominal: General: Bowel sounds are normal. Palpations: [...] normal. Allergies Cefaclor Current Medications Current Outpatient Medications Medication Instructions albuterol 90 mcg/actuation aerosol powdr breath activated inhaler 2 puffs, Every 6 hours PRN alfuzosin (UROXATRAL) 10 mg, Nightly aspirin 81 mg, oral, Daily atorvastatin (LIPITOR) 20 mg, Nightly coenzyme Q-10 200 mg, oral, Daily Eliquis 5 mg, oral, 2 times daily fish oil concentrate ([place]-3) 120-180 mg capsule 1 capsule, Every other day folic acid (FOLVITE) 0.8 mg, Daily ipratropium-albuteroL (Duo-Neb) 0.5-2.5 mg/3 mL nebulizer solution 3 mL, 4 times daily PRN multivitamin (Daily Multi-Vitamin) tablet 1 tablet, Daily oxygen (O2) gas therapy 1 each, Daily PRN sertraline (ZOLOFT) 100 mg, Daily Trelegy Ellipta 100-62.5-25 mcg blister with device 1 puff, Daily Assessment/Plan 1. S/P TAVR (transcatheter aortic valve replacement) 2. Nonrheumatic aortic valve stenosis 3. Coronary artery disease, unspecified vessel or lesion type, unspecified whether angina present, unspecified whether [place] or transplanted heart 4. Second degree AV block, Mobitz type II 5. SSS (sick sinus syndrome) (Multi) 6. S/P placement of cardiac pacemaker 7. 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 Essential hypertension 10. Mixed hyperlipidemia 11. BMI 25.0-25.9,adult 12. Former smoker 13. Urinary retention 14. Gross hematuria Scribe Attestation By signing my name below, Mariama Ramsey LPN, Scribe attest that this documentation has been prepared under the direction and in the presence of Carrasco M Gardner, MD. Provider Attestation - Scribe documentation All medical record entries made by the Scribe were at my direction and personally dictated by me. I have reviewed the chart and agree that the record accurately reflects my personal performance of the history, physical exam, discussion and plan. documented in this encounter [facility] Work Phone: 11-23-2024 Instructions Mariama Gonsalez LPN - 11/23/2024 9:50 AM EDT Please bring all medicines, vitamins, and herbal supplements with you when you come to the office. Prescriptions will not be filled unless you are compliant with your follow up appointments or have a follow up appointment scheduled as per instruction of your physician. Refills should be requested at the time of your visit. BMI was above normal measurement. Current weight: 83 kg (183 lb) Weight change since last visit (-) denotes wt loss -1.08 lbs Weight loss needed to achieve BMI 25: 4.1 Lbs Weight loss needed to achieve BMI 30: -31.6 Lbs Provided instructions on dietary changes. Pacemaker/Defibrillator follow up per routine Stop hydrochlorothiazide Follow up January documented in this encounter [facility] Work Phone: 11-19-2024 Plan of care note Problem: Skin Goal: Participates in plan/prevention/treatment measures Outcome: Progressing Problem: Skin Goal: Promote skin healing Outcome: Progressing The patient's goals for the shift include to go home today. The clinical goals for the shift include pt will remain HDS through shift. [facility] Work Phone: 11-19-2024 Miscellaneous Notes Problem: Skin Goal: Participates in plan/prevention/treatment measures Outcome: Progressing Problem: Skin Goal: Promote skin healing Outcome: Progressing The patient's goals for the shift include to go home today. The clinical goals for the shift include pt will remain HDS through shift. Problem: Skin Goal: Decreased wound size/increased tissue granulation at next dressing change 11/19/2024 013 by Meeta Vickers RN Outcome: Progressing 11/19/2024137 by Meeta Vickers RN Outcome: Progressing 11/19/2024136 by Meeta Vickers RN Outcome: Progressing Goal: Participates in plan/prevention/treatment measures 11/19/2024 013 by Meeta Vickers RN Outcome: Progressing 11/19/2024137 by Meeta Vickers RN Outcome: Progressing 11/19/2024136 by Meeta Vickers RN Outcome: Progressing Goal: Prevent/manage excess moisture 11/19/2024137 by Meeta Vickers RN Outcome: Progressing 11/19/2024137 by Meeta Vickers RN Outcome: Progressing 11/19/2024136 by Meeta Vickers RN Outcome: Progressing Goal: Prevent/minimize sheer/friction injuries 11/19/2024 013 by Meeta Vickers RN Outcome: Progressing 11/19/2024137 by Meeta Vickers RN Outcome: Progressing 11/19/2024136 by Meeta Vickers RN Outcome: Progressing Goal: Promote/optimize nutrition 11/19/2024137 by Meeta Vickers RN Outcome: Progressing 11/19/2024137 by Meeta Vickers RN Outcome: Progressing 11/19/2024 0137 by Meeta Vickers RN Outcome: Progressing Goal: Promote skin healing 11/19/2024 0138 by Meeta Vickers RN Outcome: Progressing 11/19/2024 0138 by Meeta Vickers RN Outcome: Progressing 11/19/2024 0137 by Meeta Vickers RN Outcome: Progressing Problem: Skin Goal: Participates in plan/prevention/treatment measures Outcome: Progressing Problem: Skin Goal: Promote/optimize nutrition Outcome: Progressing Problem: Skin Goal: Promote skin healing Outcome: Progressing The patient's goals for the shift include to breathe better. The clinical goals for the shift include pt will remain HDS through shift. Urology Service Reinoso Catheter Placement Procedure: 18F Coude reinoso catheter placement Reinoso Indication: urinary retention/bladder outlet obstruction, acute or chronic Indication for placement by Urology: Difficulty placing by bedside staff Findings: Uncomplicated 18Fr coude placement Details: The patient was prepped and draped in the usual sterile fashion. A 18F Coude reinoso catheter was inserted per urethra. no resistance was met. The catheter was hubbed with return of clear yellow urine. The balloon was inflated with 10cc sterile water. The catheter was stat-locked to the patient's thigh and left to drainage. The patient tolerated the procedure well. Recommendations: - Reinoso catheter management per primary team - Future catheter-related interventions do NOT need to be per urology - Patient can follow up with urology as an outpatient as desired Urology will sign off at this time. Narciso Kumari MD Urologic Surgery PGY-3 Adult Urology: [id number] Pediatric Urology: [id number] Problem: Skin Goal: Participates in plan/prevention/treatment measures Outcome: Progressing Problem: Skin Goal: Promote/optimize nutrition Outcome: Progressing Problem: Skin Goal: Promote skin healing Outcome: Progressing The clinical goals for the shift include pt will remain HDS through shift. Indication: Severe Aortic Stenosis Acute on chronic diastolic and systolic heart failure S/p preDil with TrueDil 22 mm and 24mm balloon and successful TAVR with Evolut FX+ 29 mm with postdilatation with 24mm balloon Access Primary: right SCHOOL COORDINATOR s/p 2 proglide Secondary: left SCHOOL COORDINATOR 6 bolivian s/p 1 proglide TVP: right IJ vein, 7 bolivian, removed in the produce laborer. Preexisting PPM. Pre LVEDP: 21 mmHg Post LVEDP: 25 mmHg 40 mg Lasix will be given on the floor Post gradient TTE: 5 mmHg Trace/mild PVL No effusion No conduction abnormalities during the procedure. Conclusion Monitor tele Monitor access sites for bleeding TTE tomorrow Bed rest Structural team will continue to follow. page structural team for any concerning clinical events. I Preoperative Diagnosis: Severe symptomatic aortic stenosis, need for TAVR Postoperative diagnosis: Same Procedure: 1. Ballon Valvuloplasty with 20Fr True Dil Balloon 2. MJ with 29 mm Evolut FX valve 3. Post-dilation with 24mm TruDil ballon Surgeons: Antonio Medrano MD,PhD Beto Hunter MD Anesthesia: MAC in a medical lab director Complications: None Condition to recovery room: Stable Indications. The patient is an 79 y o patient who was recently diagnosed with severe symptomatic aortic stenosis. Patient underwent complete work up, the results were presented and reviewed at the Structural Heart Selection meeting. Patient was thought to most benefit from MJ. Risks, benefits and complications of this procedure were discussed with the patient, and informed consent was obtained. Findings. Pre-dilation with 20 True dil balloon was performed without complications. 29mm Evolut FX valve was then positioned in the aortic root and 80%-deployed under rapid pacing. However, the valve was severely restricted, so this valve was recaptured and removed. Anadditional predilation with a 24 mm True Dil balloon was then performed. A new 29mm Evolut FX was then loaded, delivered, and deployed under rapid pacing witrh excellent results. Post deployment TTE showed low trans valvular gradient, trivial PVL, and no pericardial effusion. Description. Patient was brought to the hybrid OR and placed on a operating table in a supine position. After routine huddle, conscious sedation was established, patient was prepped and draped in a standard fashion. RIJ vein accessed, and a temporary pacing was advanced into the RV and tested. Both right and left femoral arteries were accessed routinely. Patient was heparinized. Primary left femoral artery access was protected with two Perclose devices. LV was accessed with a straight wire, and after appropriate wire exchange, a 20mm TrueDil balloon was advanced into the aortic root. BAV was performed under rapid pacing of 180/min and was well tolerated. 29mm Evolut FX valve was then advanced into the aortic root and deployed routinely under rapid pacing at 120-140/min. However, as described above, the valve was restricted, so after it was recaptured and removed, a second balloon valvuloplasty with 24mm TrueDil balloon was performed. A new 29mm valve was then loaded and delivered into the root and deployed in a standard fashion. TTE findings are described above. Protamine was given, all cannulas were removed,a nd cannulation sited secured. Patient tolerated this procedure well, and was taken out of the OR to the CICU in a stable condition. Physical Exam Airway Mallampati: III Cardiovascular Dental Pulmonary Plan ASA 3 documented in this encounter [facility] Work Phone: 11-19-2024 History of Present illness Narrative Discharge Planning Note: Alan Roth is a 79 y.o. male on day 2 of admission presenting with Aortic stenosis. Patient to discharge home today pending acceptance from [facility] could accept yesterday with SOC Wednesday. Asked if MD could add delay in care for Wednesday and if any issues with Reinoso cath to go to the ED. No response from [facility] agency. Patient, and charge nurse made aware. Addendum: Call placed to [facility] to confirm they can accept for homecare. Spoke with the agricultural extension agent nurse who will have Keith Mooney respond in care port of acceptance. Called and spoke with the patient informed of above and IMM letter in agreement with the discharge. Addendum: [facility] in agreement confirmed SOC for Wednesday. Asked for some notes will send via careport. Inga Jacinto RN 11/18/24 1047 Discharge Planning Living Arrangements Spouse/significant other Support Systems Spouse/significant other Assistance Needed None needed prior to admission. Type of Residence Private residence Number of Stairs to Enter Residence 3 Number of Stairs Within Residence 10 Who is requesting discharge planning? Provider Home or Post Acute Services In home services Type of Home Care Services Home nursing visits (for reinoso care) Expected Discharge Disposition Home H Does the patient need discharge transport arranged? No Financial Resource Strain How hard is it for you to pay for the very basics like food, housing, medical care, and heating? Not hard Housing Stability In the last 12 months, was there a time when you were not able to pay the mortgage or rent on time? N In the past 12 months, how many times have you moved where you were living? 0 At any time in the past 12 months, were you homeless or living in a fdc (including now)? N Transportation Needs In the past 12 months, has lack of transportation kept you from medical appointments or from getting medications? no In the past 12 months, has lack of transportation kept you from meetings, work, or from getting things needed for daily living? No Patient Choice Provider Choice list and CMS website (https://medicare.gov/care-compar e#search) for post-acute Quality and Resource Measure Data were provided and reviewed with: Patient;Family (HC agency list provided, freedom of choice explained.) Met with pt and his , introduced myself as Retail Loss Prevention Specialist with Care Transitions Team for Discharge Planning. Pt stated he feels safe at home. Pt drives himself to [place]. Pt's address, phone number and contact information was verified. Pt denies any social or financial concerns at this time. Diabetic: no Hemodialysis: no Home Healthcare: none active. DME: 2L of O2 PRN from [facility] PCP: [facility] Pharmacy: [place], [place] Pt has no preference for a HC agency, agreeable to referrals being submitted to star rated agencies near his zip code area. Pt, pts , bedside nurse and MD Rob notified that pts HC must be confirmed prior to discharge. MD Rubalcava notified that HC orders are incorrect, must state fpc, has BACK CLOSER listed, MD to update. Pending accepting HC agencies. Addendum 1537: No accepting HC agency. MD and bedside nurse notified. Patients information placed on weekend sign out for follow up. Ana Laura Lomeli RN, BSN Transitional Retail Loss Prevention Specialist Office: [phone] Secure chat via [employer] Subjective Data: Doing well. No new complaints. Overnight Events: Doing well. Had an episode of urinary retention last night after which a Reinoso catheter was placed by urology. Patient had relief of his symptoms after that. Patient's groin site looks clean, without any significant issues. No wounds, no bleed, no swelling no significant tenderness. Per urology, patient advised to keep the Reinoso catheter for 7 to 14 days and get removed by outpatient urology. Another option would be to keep the patient in-house and do a void trial-however, patient wants to go home and already has made plans for the same. Objective Data: Last Recorded Vitals: Vitals: 11/17/24 1658 11/17/24 2110 11/17/24 2339 11/18/24 0513 BP: 163/77 154/75 136/69 125/65 BP Location: Patient Position: Pulse: 70 70 64 69 Resp: 18 20 18 Temp: 35.9 C (96.6 F) 36.2 C (97.2 F) 36.2 C (97.2 F) 36.6 C (97.9 F) TempSrc: Temporal Temporal Temporal SpO2: 98% 95% 95% 97% Weight: Height: Last Labs: CBC - 11/18/2024: 6:29 AM 11.3 11.8 125 36.4 CMP - 11/18/2024: 6:29 AM 9.1 _ _ --- _ _ _ _ _ PTT - No results in last year. 1.3 14.9 _ No results found for: TROPHS , BNP , HGBA1C , LDLCALC , VLDL Last I/O: I/O last 3 completed shifts: In: 116.1 (1.4 mL/kg) [I.V.:116.1 (1.4 mL/kg)] Out: 360 (4.3 mL/kg) [Urine:350 (0.1 mL/kg/hr); Blood:10] Weight: 83.5 kg Past Cardiology Tests (Last 3 Years): EKG: No results found for this or any previous visit from the past 1095 days. Echo: Transthoracic Echo (TTE) Limited 11/17/2024 Transthoracic Echo Complete 10/13/2024 Ejection Fractions: EF Date/Time Value Ref Range Status 11/17/2024 12:59 PM 63 % 10/13/2024 11:35 AM 65 % Cath: No results found for this or any previous visit from the past 1095 days. Stress Test: Nuclear Stress Test 03/04/2022 Cardiac Imaging: No results found for this or any previous visit from the past 1095 days. Inpatient Medications: Scheduled Medications[1] PRN Medications[2] Continuous Medications[3] Physical Exam: GEN No acute distress, dry mucous membranes HENT NCAT, Eyes PERRL. EOMI. Anicteric NECK Supple, No JVD, No thyromegaly CHEST No resp distress, normal diaphragmatic movement. HEART RRR, S1S2+, soft systolic murmur ABD Soft, NT, ND. EXT No clubbing, cyanosis or edema. NEURO Alert, oriented, and appropriately interactive. Moving all extremities Skin Warm and dry, No rashes Assessment/Plan 79 y.o. male with PMH of HLD, HTN, CAD s/p PCI, COPD on home O2, moderate PHTN, permanent Afib on Eliquis, SSS s/p PPM presents for evaluation of severe, symptomatic aortic stenosis status post TAVR. Plan to discharge patient home today on Eliquis and aspirin. Patient will follow with outpatient urology, if home care is sorted out today. Sachin Rubalcava MD [1] Scheduled medications Medication Dose Route Frequency alfuzosin 10 mg oral Nightly amLODIPine 2.5 mg oral Daily aspirin 81 mg oral Daily atorvastatin 20 mg oral Nightly docusate sodium 100 mg oral BID tiotropium 2 puff inhalation Daily And fluticasone furoate-vilanteroL 1 puff inhalation Daily folic acid 0.8 mg oral Daily [START ON 11/19/2024] heparin (porcine) 5,000 Units subcutaneous q8h pantoprazole 40 mg oral Daily before breakfast Or pantoprazole 40 mg intravenous Daily before breakfast perflutren lipid microspheres 0.5-10 mL of dilution intravenous Once in imaging perflutren lipid microspheres 0.5-10 mL of dilution intravenous Once in imaging sertraline 100 mg oral Daily [2] PRN medications Medication acetaminophen Or acetaminophen Or acetaminophen ipratropium-albuteroL lidocaine-epinephrine ondansetron ODT Or ondansetron oxygen traMADol [3] Continuous Medications Medication Dose Last Rate Pharmacy Medication History Review Alan Roth is a 79 y.o. male who is planned to be admitted for Aortic stenosis. Pharmacy called the patient prior to their scheduled procedure and reviewed the patient's [id number] medications for accuracy. Medications ADDED: Albuterol HFA Alfuzosin ER 10mg Duo-neb Atorvastatin 20mg Folic acid 800mcg Medications CHANGED: Sertraline 50mg TO sertraline 100mg Medications REMOVED: Advair 45-21mcg/act Pravastatin 40mg Please review updated prior to admission medication list and comments regarding how patient may be taking medications differently by going to Admission tab --> Admission Orders --> Admit Orders / Review prior to admission medications. Preferred pharmacy, last doses of medications, and allergies to be confirmed with patient by nursing the day of procedure. Sources used to complete the med history include: [facility] Pharmacy dispense history Patient Interview Good historian Chart Review Care Everywhere Below are additional concerns with the patient's PIE TOPPER list. Patient states they use their trelegy inhaler every day. (L.F. 07/04/24 #3/90d) They use their albuterol inhaler and duo-neb as needed, not daily. (Albuterol L.F. 09/23/24 #3/90d & duo-neb L.F. 11/08/24 360ml/30d) Patient states they are taking #1 tablet of sertraline 100mg once daily. L.F. 11/03/24 #90/90d Patient states they are taking #1 tablet of alfuzosin ER 10mg once daily at bedtime. L.F. 11/14/24 #90/90d Patient states they are taking #1 tablet of atorvastatin 20mg at bedtime. L.F. 01/19/24 #90/90d. There is NO fill history of pravastatin 40mg Zainab Garcia computer repair engineer Please reach out via Secure Chat for questions documented in this encounter [facility] Work Phone: 11-19-2024 Plan of care note Problem: Skin Goal: Decreased wound size/increased tissue granulation at next dressing change 11/19/2024137 by Meeta Vickers RN Outcome: Progressing 11/19/2024137 by Meeta Vickers RN Outcome: Progressing 11/19/2024136 by Meeta Vickers RN Outcome: Progressing Goal: Participates in plan/prevention/treatment measures 11/19/2024137 by Meeta Vickers RN Outcome: Progressing 11/19/2024137 by Meeta Vickers RN Outcome: Progressing 11/19/2024136 by Meeta Vickers RN Outcome: Progressing Goal: Prevent/manage excess moisture 11/19/2024137 by Meeta Vickers RN Outcome: Progressing 11/19/2024137 by Meeta Vickers RN Outcome: Progressing 11/19/2024136 by Meeta Vickers RN Outcome: Progressing Goal: Prevent/minimize sheer/friction injuries 11/19/2024137 by Meeta Vickers RN Outcome: Progressing 11/19/2024137 by Meeta Vickers RN Outcome: Progressing 11/19/2024136 by Meeta Vickers RN Outcome: Progressing Goal: Promote/optimize nutrition 11/19/2024137 by Meeta Vickers RN Outcome: Progressing 11/19/2024137 by Meeta Vickers RN Outcome: Progressing 11/19/2024136 by Meeta Vickers RN Outcome: Progressing Goal: Promote skin healing 11/19/2024137 by Meeta Vickers RN Outcome: Progressing 11/19/2024137 by Meeta Vickers RN Outcome: Progressing 11/19/2024136 by Meeta Vickers RN Outcome: Progressing [facility] Work Phone: 11-18-2024 Hospital course Narrative Discharge Diagnosis Aortic stenosis Issues Requiring Follow-Up None; There will be a delay in care until Wednesday morning/afternoon for his urinary catheter care through Skilled nurse/ Home health aide. This has been discussed with the patient and insurance case manager Inga Jacinto RN. Patient has been advised to go to the [facility] ED if he has any issues or concerns about the reinoso catheter. Test Results Pending At Discharge Pending Labs No current pending labs. Hospital Course Indication: Severe Aortic Stenosis Acute on chronic diastolic and systolic heart failure S/p preDil with TrueDil 22 mm and 24mm balloon and successful TAVR with Evolut FX+ 29 mm with postdilatation with 24mm balloon Access Primary: right SCHOOL COORDINATOR s/p 2 proglide Secondary: left SCHOOL COORDINATOR 6 bolivian s/p 1 proglide TVP: right IJ vein, 7 bolivian, removed in the produce laborer. Preexisting PPM. Pre LVEDP: 21 mmHg Post LVEDP: 25 mmHg 40 mg Lasix will be given on the floor Post gradient TTE: 5 mmHg Trace/mild PVL No effusion No conduction abnormalities during the procedure. Conclusion Monitor tele Monitor access sites for bleeding TTE tomorrow Bed rest Structural team will continue to follow. page structural team for any concerning clinical events. Pertinent Physical Exam At Time of Discharge Physical Exam GEN No acute distress, dry mucous membranes HENT NCAT, Eyes PERRL. EOMI. Anicteric NECK Supple, No JVD, No thyromegaly CHEST No resp distress, normal diaphragmatic movement. HEART RRR, S1S2+, soft systolic murmur. ABD Soft, NT, ND. EXT No clubbing, cyanosis or edema. NEURO Alert, oriented, and appropriately interactive. Moving all extremities Skin Warm and dry, No rashes Home Medications Medication List CHANGE how you take these medications aspirin 81 mg EC tablet; Take 1 tablet (81 mg) by mouth once daily.; Start taking on: November 19, 2024; What changed: when to take this CONTINUE taking these medications albuterol 90 mcg/actuation aerosol powdr breath activated inhaler alfuzosin 10 mg 24 hr tablet; Commonly known as: Uroxatral atorvastatin 20 mg tablet; Commonly known as: Lipitor coenzyme Q-10 200 mg capsule; Take 1 capsule (200 mg) by mouth once daily. Daily Multi-Vitamin tablet; Generic drug: multivitamin Eliquis 5 mg tablet; Generic drug: apixaban; TAKE 1 TABLET BY MOUTH TWICE DAILY fish oil concentrate 120-180 mg capsule; Commonly known as: [place]-3 folic acid 800 mcg tablet; Commonly known as: Folvite hydroCHLOROthiazide 25 mg tablet; Commonly known as: HYDRODiuril; TAKE 1 TABLET BY MOUTH ONCE DAILY ipratropium-albuteroL 0.5-2.5 mg/3 mL nebulizer solution; Commonly known as: Duo-Neb oxygen gas therapy; Commonly known as: O2 sertraline 100 mg tablet; Commonly known as: Zoloft Trelegy Ellipta 100-62.5-25 mcg blister with device; Generic drug: [id number]-fewewwuhz-tyhjczrs Outpatient Follow-Up Future Appointments Date Time Provider Department Center 12/21/2024 1:30 PM [facility] [id number] CARD1 [id number] [place] 02/06/2025 11:30 AM Danilo Gardner MD [id number] [place] 11/16/2025 9:30 AM [facility] [id number] CARD1 [id number] Academic Sachin Rubalcava MD documented in this encounter [facility] Work Phone: 11-18-2024 Plan of care note Problem: Skin Goal: Participates in plan/prevention/treatment measures Outcome: Progressing Problem: Skin Goal: Promote/optimize nutrition Outcome: Progressing Problem: Skin Goal: Promote skin healing Outcome: Progressing The patient's goals for the shift include to breathe better. The clinical goals for the shift include pt will remain HDS through shift. [facility] Work Phone: 11-18-2024 erp project manager Note Urology Service Reinoso Catheter Placement Procedure: 18F Coude reinoso catheter placement Reinoso Indication: urinary retention/bladder outlet obstruction, acute or chronic Indication for placement by Urology: Difficulty placing by bedside staff Findings: Uncomplicated 18Fr coude placement Details: The patient was prepped and draped in the usual sterile fashion. A 18F Coude reinoso catheter was inserted per urethra. no resistance was met. The catheter was hubbed with return of clear yellow urine. The balloon was inflated with 10cc sterile water. The catheter was stat-locked to the patient's thigh and left to drainage. The patient tolerated the procedure well. Recommendations: - Reinoso catheter management per primary team - Future catheter-related interventions do NOT need to be per urology - Patient can follow up with urology as an outpatient as desired Urology will sign off at this time. Narciso Kumari MD Urologic Surgery PGY-3 Adult Urology: [id number] Pediatric Urology: [id number] [facility] Work Phone: 11-18-2024 Nurse Note Pt has residual 850 in bladder scan. Attempted to straight cath patient and met resistance. Blood return was noted. Called [facility] and they advised urology would take care of the straight cath. [facility] 11-18-2024 Nurse Note Pt has residual 850 in bladder scan. Attempted to straight cath patient and met resistance. Blood return was noted. Called [facility] and they advised urology would take care of the straight cath. Radha PEDRAZA from device at bedside, turned off rate response on PPM documented in this encounter [facility] Work Phone: 11-17-2024 Plan of care note Problem: Skin Goal: Participates in plan/prevention/treatment measures Outcome: Progressing Problem: Skin Goal: Promote/optimize nutrition Outcome: Progressing Problem: Skin Goal: Promote skin healing Outcome: Progressing The clinical goals for the shift include pt will remain HDS through shift. [facility] Work Phone: 11-17-2024 Surgery Postoperative evaluation and management note Indication: Severe Aortic Stenosis Acute on chronic diastolic and systolic heart failure S/p preDil with TrueDil 22 mm and 24mm balloon and successful TAVR with Evolut FX+ 29 mm with postdilatation with 24mm balloon Access Primary: right SCHOOL COORDINATOR s/p 2 proglide Secondary: left SCHOOL COORDINATOR 6 bolivian s/p 1 proglide TVP: right IJ vein, 7 bolivian, removed in the produce laborer. Preexisting PPM. Pre LVEDP: 21 mmHg Post LVEDP: 25 mmHg 40 mg Lasix will be given on the floor Post gradient TTE: 5 mmHg Trace/mild PVL No effusion No conduction abnormalities during the procedure. Conclusion Monitor tele Monitor access sites for bleeding TTE tomorrow Bed rest Structural team will continue to follow. page structural team for any concerning clinical events. [facility] Work Phone: 11-17-2024 Surgery Surgical operation note I Preoperative Diagnosis: Severe symptomatic aortic stenosis, need for TAVR Postoperative diagnosis: Same Procedure: 1. Ballon Valvuloplasty with 20Fr True Dil Balloon 2. MJ with 29 mm Evolut FX valve 3. Post-dilation with 24mm TruDil elainaon Surgeons: Antonio Medrano MD,PhD Beto Hunter MD Anesthesia: MAC in a medical lab director Complications: None Condition to recovery room: Stable Indications. The patient is an 79 y o patient who was recently diagnosed with severe symptomatic aortic stenosis. Patient underwent complete work up, the results were presented and reviewed at the Structural Heart Selection meeting. Patient was thought to most benefit from MJ. Risks, benefits and complications of this procedure were discussed with the patient, and informed consent was obtained. Findings. Pre-dilation with 20 True dil balloon was performed without complications. 29mm Evolut FX valve was then positioned in the aortic root and 80%-deployed under rapid pacing. However, the valve was severely restricted, so this valve was recaptured and removed. Anadditional predilation with a 24 mm True Dil balloon was then performed. A new 29mm Evolut FX was then loaded, delivered, and deployed under rapid pacing witrh excellent results. Post deployment TTE showed low trans valvular gradient, trivial PVL, and no pericardial effusion. Description. Patient was brought to the hybrid OR and placed on a operating table in a supine position. After routine huddle, conscious sedation was established, patient was prepped and draped in a standard fashion. RIJ vein accessed, and a temporary pacing was advanced into the RV and tested. Both right and left femoral arteries were accessed routinely. Patient was heparinized. Primary left femoral artery access was protected with two Perclose devices. LV was accessed with a straight wire, and after appropriate wire exchange, a 20mm TrueDil balloon was advanced into the aortic root. BAV was performed under rapid pacing of 180/min and was well tolerated. 29mm Evolut FX valve was then advanced into the aortic root and deployed routinely under rapid pacing at 120-140/min. However, as described above, the valve was restricted, so after it was recaptured and removed, a second balloon valvuloplasty with 24mm TrueDil balloon was performed. A new 29mm valve was then loaded and delivered into the root and deployed in a standard fashion. TTE findings are described above. Protamine was given, all cannulas were removed,a nd cannulation sited secured. Patient tolerated this procedure well, and was taken out of the OR to the CICU in a stable condition. [facility] Work Phone: 11-17-2024 Nurse Note Radha PEDRAZA from device at bedside, turned off rate response on PPM [facility] Work Phone: 11-17-2024 Nurse procedure note Physical Exam Airway Mallampati: III Cardiovascular Dental Pulmonary Plan ASA 3 [facility] Work Phone: 11-16-2024 Hospital Discharge instructions Amanda Ward APRN-BENCH SHEAR OPERATOR - 11/16/2024 9:39 AM EDT #### POST VALVE PROCEDURE DISCHARGE INSTRUCTIONS #### - Please weigh yourself daily (first thing in the morning) and record reading - Please take and record your blood pressure 2 times a day (at least 60-90 mins AFTER you take your meds) PLEASE HAVE THESE READINGS AVAILABLE DURING YOUR FOLLOW-UP APPOINTMENTS!! - NO DRIVING OR LIFTING/PULLING/PUSHING GREATER THAN 10 POUNDS FOR 1 WEEK FROM YOUR PROCEDURE DATE. - A lab requisition has been provided for you to draw a CBC and BMP. Please take this rec to your local lab to have your labs drawn between 4-7 days post discharge. - You have been given the order requisition for the 1 month ECHO at the time of your discharge. Please call and schedule this ECHO at your LOCAL center (no sooner than 23 days after your procedure date). - You will have 2 (possibly 3 - if 1 week appointment available) appointments that are vital to your post procedure care, these will be scheduled for you IF YOU NEED TO CHANGE YOUR APPOINTMENT TIME/DATE, PLEASE CALL - Please follow up with your PCP within 7-14 days of discharge - You will follow up with your primary network support engineer in 6-10 weeks No elective dental procedures or cleanings for 3 months post procedure - You will need dental prophylaxis (oral antibiotic) prior to dental work/cleanings for life Please call the STRUCTURAL HEART TEAM LINE if you have any questions or concerns - [phone] (M-F 9am-4pm) On-Call Twister Frame Tender: (ONLY for urgent issues on nights/weekends/holidays) CALL PROVIDER IF: - Breathing faster than normal. - Breathing harder than normal or having retractions. - Fever of 100.4 F (38 C) or higher. - Chills - Drinking less than normal. - Urinating less than normal, over 1 day. - Acting very sleepy and difficult to awaken. - Vomiting (throwing up) and not able to eat or drink for 12 hours. - 3 or more loose, watery bowel movements in 24 hours (diarrhea). -Any new concerning symptoms. - If you develop difficulty breathing, rash, hives, severe nausea, vomiting, light-headedness or any signs of infection, immediately contact your doctor and go to the nearest emergency room. ##### MISC. HOME-GOING INFO ##### - DO NOT drink any alcoholic drinks or take any non-prescriptive medications that contain alcohol for the first 24 hours. - DO NOT make any important decisions for the first 24 hours. ACTIVITY: - You are advised to go directly home from the hospital. - DO NOT lift anything heavier than 10 pounds for one week, this allows for proper healing of the groin. - No excessive exercise or treadmill use for one week. You may walk and do stairs, slowly. - No sexual activities for 24 hours after you arrive home. WOUND CARE: - If slight bleeding should occur at site, lie down and have someone apply firm pressure just above the puncture site for 5 minutes. If it continues or is profuse, call 911. Always notify your doctor if bleeding occurs. - Keep site clean and dry. Let air dry or you may use a simple bandaid. - Gently cleanse the puncture site in your groin with soap and water only. - You may experience some tenderness, bruising or minimal inflammation. If you have any concerns, you may contact the Director Of Group Sales or if any of these symptoms become excessive, contact your network support engineer or go to the emergency room. - No tub baths, soaking, or swimming for one week. - May shower the next day after your procedure. DIET: - You may resume your normal diet. However, be mindful of your sodium intake. Ideally you should try to limit your daily intake of sodium to 2-3g a day HEART FAILURE SPECIFIC INSTRUCTIONS: - CALL 911 IF YOU HAVE ANY OF THE SIGNS AND SYMPTOMS OF HEART FAILURE: 1. Chest pain 2. Significant Shortness of breath 3. Fainting. - Notify your physician immediately if you have shortness of breath; weight gain of 3 lbs. or more; fatigue and loss of energy; swelling of lower extremities or abdomen; dizziness or fainting; change of appetite; and frequent coughing. - Daily weight on the same scale, same time after voiding and before eating. - Maintain daily weight log. documented in this encounter [facility] Work Phone: 10-18-2024 History of Present illness Narrative Chief Complaint Patient presents with Follow-up 6month Follow up for Coronary Artery Disease echo results Subjective Alan Roth is a 79 y.o. male HPI Patient is in the office for follow-up for coronary artery disease and previous PCI in the remote past who has advanced COPD on home oxygen. I recommended doing echocardiogram prior to this visit and follow-up for history of mild aortic stenosis from 2022. His echocardiogram that was done last week revealed evidence of severe aortic stenosis and a peak velocity of 430 cm/s across aortic valve with preserved ejection fraction and moderate pulmonary hypertension. The findings were reviewed with the patient and his . My recommendations were to proceed with cardiac catheterization to define the coronary anatomy and subsequently referred to structural heart disease at [facility] for possible aortic valve replacement with TAVR or surgery if needed. The procedure and indication were discussed at length with patient's they both understand and agree. He is currently on oxygen 3 L/min due to advanced COPD. He reports no syncope and no angina pectoris. No lower extremity edema. He is very much limited physically due to his COPD Assessment/recommendations: 1-severe aortic stenosis based on echocardiogram September 2024. The patient will benefit from intervention with either TAVR or surgery. Cardiac catheterization scheduled next week, will hold anticoagulation to make for the procedure. Patient results further advice to be provided. 2-permanent atrial fibrillation on Eliquis with controlled rate. No antiarrhythmics. Asymptomatic. Will continue to monitor 3-CAD with previous stenting of coronary arteries for many years ago I do not have the records. No indication of recurrent angina pectoris and risk factor for CAD have been controlled. Due to the need for TAVR or valve surgery cardiac catheterization is scheduled 4-sick sinus syndrome with a pacemaker in place. Last pacemaker check August 2024 was reviewed, patient had 31% mode switch, he is on Eliquis but no antiarrhythmics 5-essential hypertension, blood pressure is controlled 6-high risk medication with Eliquis without any bleeding complications 7-severe COPD from previous tobacco abuse on home oxygen 8-hyperlipidemia on pravastatin. Currently on CQ ten 200 mg daily due to muscle cramps 9-moderate pulmonary hypertension based on echocardiogram September 2024. No volume overload ROS Dyspnea on exertion Vitals: 10/18/24 1504 10/18/24 1532 BP: 142/74 122/70 BP Location: Left arm Left arm Patient Position: Sitting Sitting Pulse: 64 Weight: 83.5 kg (184 lb) Height: 1.803 m (5' 11 ) [...] 2 times a week., Disp: , Rfl: coenzyme Q-10 200 mg capsule, Take 1 capsule (200 mg) by mouth once daily., Disp: 90 capsule, Rfl: 3 Eliquis 5 mg tablet, TAKE 1 TABLET BY MOUTH TWICE DAILY, Disp: 180 tablet, Rfl: 3 fish oil concentrate (Rock[place]-3) 120-180 mg capsule, Take 1 capsule (1 g) by mouth every other day., Disp: , Rfl: fluticasone propion-salmeteroL (Advair HFA) 45-21 mcg/actuation inhaler, Inhale 2 puffs 2 times a day. Rinse mouth with water after use to reduce aftertaste and incidence of candidiasis. Do not swallow., Disp: , Rfl: hydroCHLOROthiazide (HYDRODiuril) 25 mg tablet, TAKE 1 TABLET BY MOUTH ONCE DAILY, Disp: 90 tablet, Rfl: 3 multivitamin (Daily [...] once daily., Disp: , Rfl: Assessment/Plan 1. Severe aortic stenosis Follow Up In Cardiology Referral to Valve and Structural Heart Program Cardiac Catheterization - Onbase Scan 2. 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 Follow Up In Cardiology 3. CHB (complete heart block) Follow Up In Cardiology 4. S/P placement of cardiac pacemaker 5. Paroxysmal atrial fibrillation (Multi) 6. Essential hypertension 7. Mixed hyperlipidemia 8. Former smoker 9. BMI 25.0-25.9,adult 10. Other emphysema (Multi) 11. Oxygen dependent 12. Pulmonary hypertension (Multi) Scribe Attestation By signing my name below, I, Lucita Augustin LPN attest that this documentation has been prepared under the direction and in the presence of Danilo Gardner MD. Provider Attestation - Scribe documentation All medical record entries made by the Scribe were at my direction and personally dictated by me. I have reviewed the chart and agree that the record accurately reflects my personal performance of the history, physical exam, discussion and plan. documented in this encounter [facility] Work Phone: 10-18-2024 Instructions Wendy Dash LPN - 10/18/2024 3:10 PM EDT Please bring all medicines, vitamins, and herbal supplements with you when you come to the office. Prescriptions will not be filled unless you are compliant with your follow up appointments or have a follow up appointment scheduled as per instruction of your physician. Refills should be requested at the time of your visit. Fall Prevention Education Given BMI was above normal measurement. Current weight: 83.5 kg (184 lb) Weight change since last visit (-) denotes wt loss -1 lbs Weight loss needed to achieve BMI 25: 5.1 Lbs Weight loss needed to achieve BMI 30: -30.6 Lbs Provided instructions on dietary changes Provided instructions on exercise. Pacemaker/Defibrillator follow up per routine Stop Eliquis 2 days prior to heart cath. documented in this encounter [facility] Work Phone: 03-16-2024 History of Present illness Narrative Subjective Alan Roth is a 78 y.o. male Chief Complaint Follow-up HPI 78-year-old white male who I am seeing for the first time, he followed previously with Dr. Woods. His records were reviewed and discussed with [...] oxygen. His last echocardiogram July 2022 at [facility] revealed evidence of mild aortic stenosis and [...] stenosis based on echocardiogram July 2022 at [facility]. EF is normal. Follow-up echocardiogram is scheduled [...] 180 tablet, Rfl: 3 fish oil concentrate (Rockville-3) 120-180 mg capsule, Take 1 capsule (1 [...] a-fib (Multi) 2. 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 Follow Up In Cardiology 3. CHB (complete heart block) (Multi) Follow Up In Cardiology 4. SSS (sick sinus syndrome) (Multi) 5. S/P placement of cardiac pacemaker 6. Aortic valve stenosis, etiology of cardiac valve disease unspecified 7. Mixed hyperlipidemia 8. 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 Overweight (BMI 25.0-29.9) 11. Former smoker Scribe Attestation By signing my name below, I, Audelia Slaughter LPN , [employer] attest that this documentation has been prepared under the direction and in the presence of Danilo Gardner MD. Provider Attestation - Scribe documentation All medical record entries made by the Scribe were at my direction and personally dictated by me. I have reviewed the chart and agree that the record accurately reflects my personal performance of the history, physical exam, discussion and plan. documented in this encounter [facility] Work Phone: 03-16-2024 Instructions Audelia Ramey [...] be sent through Care Everywhere.Heart Healthy Diet (Sri [place]ankan)documented in this encounter [facility] Work Phone: 06-14-2023 History of Present illness Narrative Subjective Alan Roth is a 77 y.o. male Chief Complaint [...] day., Disp: , Rfl: fish oil concentrate (Rock[place]-3) 120-180 mg capsule, Take 1 capsule (1 [...] Rfl: Assessment/Plan 1. 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 Asymptomatic without anginal [...] maintenance were advocated. documented in this encounter [facility] Work Phone: 06-14-2023 Instructions Audelia [...] up per routine documented in this encounter [facility] Work Phone: 04-05-2023 Evaluation note [...] are maintaining regular scheduled appts with their network support engineer. No bleeding complications Mar, ADEN (obstructive sleep apnea) (ICD-10 - G47.33) This patient is aware of the benefits associated with ADEN: With continued use, the patient reduces the risk for AL, CVA, HTN, cardiac dysrhythmias and sudden cardiac [...] tract symptoms (ICD-10 - N40.1) Symptoms tolerable. [facility] Other 09-05-2023 Evaluation note* Encounter Date Diagnosis Assessment Notes Treatment Notes Treatment Clinical Notes Mar, Primary hypertension (ICD-10 - I10) [facility] Other 08-02-2023 Evaluation note* Encounter Date Diagnosis Assessment Notes Treatment Notes Treatment Clinical Notes Feb, Mucopurulent chronic bronchitis (ICD-10 - J41.1) Feb, Pulmonary nodule (ICD-10 - R91.1) CT: lingula 2.1cm (following w/ Sam) LDCT: no suspicious nodules - 02/2023 [facility] Other 08-02-2023 Evaluation note* Encounter Date Diagnosis Assessment Notes Treatment Notes Treatment Clinical Notes Feb, Solitary pulmonary nodule (ICD-10 - R91.1) LDCT 02/02/2022 showed no change in lingula nodule @ 2.1cm. Resuming LDCT, due 01/2023. Feb, Mucopurulent chronic bronchitis (ICD-10 - J41.1) Feb, ADEN (obstructive sleep apnea) (ICD-10 - G47.33) [facility] Other 04-19-2022 NoteFR COVID-19 [facility] (Normal) Range:Negative Comments:Testing for SARS-CoV-2 by RT-PCR This test was developed and its performance characteristics determined by Maryellen, [employer]) and validated at the [facility]. This test has not been FDA [...] the authorization is terminated or revoked sooner.PERFORMED BY:[place] [address] [place] [place], [place] [id number] MEDICAL DIRECTORROSCOE LEMUS M.D. [address] Work Phone: Comment on above:Testing for SARS-CoV-2 by RT-PCR This test was developed and its performance characteristics determined by Maryellen, [employer] ([employer]) and validated at the [facility]. This test has not been FDA [...] the authorization is terminated or revoked sooner.PERFORMED BY:[place] [address] [place] [place], [place] [id number] MEDICAL DIRECTORROSCOE LEMUS M.D. 11-04-2021 NoteFR COVID-19 [facility] (Normal)Range:Negative Comments:Testing for SARS-CoV-2 by RT-PCR This test was developed and its performance characteristics determined by [employer] ([place]) and validated at the [facility]. This test has not been FDA [...] the authorization is terminated or revoked sooner.PERFORMED BY:[address] [place] [place], [place] [id number] MEDICAL DIRECTORROSCOE LEMUS M.D. [place] [address] DO Work Phone: Comment on above:Testing for SARS-CoV-2 by RT-PCR This test was developed and its performance characteristics determined by [employer] ([place]) and validated at the [facility]. This test has not been FDA [...] the authorization is terminated or revoked sooner.PERFORMED BY:[facility] [place], [place] [phone] MEDICAL DIRECTORROSCOE LEMUS M.D. Chief complaint Narrative - ReportedALAN ROTH is being seen for a cardiovascular evaluation of gen change 2016.-[facility] 250 DO Work Phone: Evaluation + Plan note No data available for this section General Surgery Jenna Evaluation noteNo assessment information available [facility] Work Phone: Evaluation noteNo InformationNort [employer] Consumer Other Evaluation note* Diagnosis 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- Primary CHB (complete heart block) (CMS/HCC) Atrioventricular block, complete S/P placement of cardiac pacemaker Mixed hyperlipidemia Essential hypertension Unspecified essential hypertension Nonrheumatic aortic valve stenosis Paroxysmal atrial fibrillation (CMS/HCC) Atrial fibrillation Overweight (BMI 25.0-29.9) Overweight documented in this encounter [facility] Work Phone: Evaluation note* Diagnosis Onset Date Resolution Status ASHD (arteriosclerotic heart disease) acute Atrial fibrillation acute Benign prostatic hyperplasia with lower urinary tract symptoms acute Chronic bronchitis acute HTN (hypertension) acute Hypercholesterolemia acute ADEN (obstructive sleep apnea) acute Medicare annual wellness visit, subsequent noneactive [facility] Work Phone: Evaluation note* Diagnosis [...] sleep apnea) acute June 08, 2024 11:25am [facility] Work Phone: Evaluation note* Diagnosis Chronic a-fib (Multi) Atrial fibrillation 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 CHB (complete heart block) (Multi) Atrioventricular block, complete SSS (sick sinus syndrome) (Multi) Sinoatrial node dysfunction S/P placement of cardiac pacemaker Aortic valve stenosis, etiology of cardiac valve disease unspecified Mixed hyperlipidemia Essential hypertension Unspecified essential hypertension retirement current use of anticoagulant therapy Overweight (BMI 25.0-29.9) Overweight Former smoker Personal history of tobacco use, presenting hazards to health documented in this encounter [facility] Work Phone: Evaluation note* Diagnosis Aortic valve stenosis, etiology of cardiac valve disease unspecified documented in this encounter [facility] Work Phone: Evaluation note* Diagnosis Severe aortic stenosis- Primary Aortic valve disorders 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 CHB (complete heart block) Atrioventricular block, complete S/P placement of cardiac pacemaker Paroxysmal atrial fibrillation (Multi) Atrial fibrillation Essential hypertension Unspecified essential hypertension Mixed hyperlipidemia Former smoker Personal history of tobacco use, presenting hazards to health BMI 25.0-25.9,adult Other emphysema (Multi) Other emphysema Oxygen dependent Dependence on supplemental oxygen Pulmonary hypertension (Multi) Other chronic pulmonary heart diseases documented in this encounter [facility] Work Phone: [phone] note* Diagnosis Severe aortic stenosis Aortic valve disorders documented in this encounter [facility] Work Phone: [phone] note* Diagnosis Nonrheumatic aortic valve stenosis- Primary documented in this encounter [facility] Work Phone: [phone] note* Diagnosis Nonrheumatic aortic valve stenosis documented in this encounter [facility] Work Phone: Evaluation note* Diagnosis Aortic stenosis- Primary Aortic valve disorders Aortic stenosis Aortic valve disorders Nonrheumatic aortic valve stenosis 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) Nonrheumatic aortic valve stenosis S/P TAVR (transcatheter aortic valve replacement) documented in this encounter [facility] Work Phone: [phone] note* Diagnosis S/P TAVR (transcatheter aortic valve replacement)- Primary Nonrheumatic aortic valve stenosis Coronary artery disease, unspecified vessel or lesion type, unspecified whether angina present, unspecified whether quartz [place] or transplanted heart Second degree AV block, Mobitz type II Mobitz (type) II atrioventricular block SSS (sick sinus syndrome) (Multi) Sinoatrial node dysfunction S/P placement of cardiac pacemaker Chronic a-fib (Multi) Atrial 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 Essential hypertension Unspecified essential hypertension Mixed hyperlipidemia BMI 25.0-25.9,adult Former smoker Personal history of tobacco use, presenting hazards to health Urinary retention Unspecified retention of urine Gross hematuria Nonrheumatic aortic valve stenosis S/P TAVR (transcatheter aortic valve replacement) documented in this encounter [facility] Work Phone: Hisuams general Narrative - Reported* Type Description Date Medical History Hypercholesteremia Medical History HTN (hypertension) Medical History Depression Medical History COPD (chronic obstructive pulmon nicholas disease) Surgical History cardiac pacemeker Hospitalization History see surgical hx [facility] Other History general Narrative - Reported* Type Description Date Medical History Hypercholesteremia Medical History HTN (hypertension) Medical History Depression Medical History COPD (chronic obstructive pulmon nicholas disease) Surgical History cardiac pacemeker Surgical History Colonoscopy w/ polypectomy, rep eat 5 years 01/2023 Hospitalization History see surgical [facility] Other History of Present illness Narrative* Patient [...] as originally intended ede in several months. [facility] 250 DO Work Phone: History of [...] the merits of diet exercise and weight loss.[facility] 250 DO Work Phone: History of [...] will provide guidance regarding carotid disease management. [facility] 250 DO Work Phone: [...] will provide guidance regarding carotid disease management. [facility] Work Phone: History of Present illness [...] will provide guidance regarding carotid disease management. [facility] Work Phone: History of Present illness [...] is soft suggesting only mild to moderate stenosis.[facility] [employer] Work Phone: History of Present illness Narrative* [...] of weight loss and diet were advocated. [facility] [employer] 250 DO Work Phone: Hospital Discharge instructions No data available for this section General Surgery [place] Progress note No data available for this section General Surgery [place] Reason for referral (narrative)* Consultation (Routine) - Authorized Specialty Diagnoses / Procedures Referred By Contac t Referred To Contact Cardiology Diagnoses 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 CHB (complete heart block) ([facility]) Essential hypertension Procedures Follow Up In Cardiology Angel Woods MD [address] [facility] [address], [address] [address] Angel Woods MD [address] [facility] [address], [address] [address] Referral ID Status Reason Start Date Expiration Date V isits Requested Visits Authorized [id number] Authorized 06/14/2023 06/13/2024 1 1 [facility] Work Phone: reason for visit Narrative* CV Imaging (Routine) - Authorized Specialty Diagnoses / Procedures Referred By Sadiac t Referred To Contact Cardiology Diagnoses Aortic valve stenosis, etiology of cardiac valve disease unspecified Procedures Transthoracic Echo Complete CA ECHO TTHRC R-T 2D W/WOM-MODE COMPL SPEC&COLR D Danilo Gardner MD [address] [place] [address], [address] [address] Phone: tel: fax: Referral ID Status Reason Start Date Expiration Date Visits Requested Visits Authorized [id number] Authorized Perform Procedure 03/16/2024 03/16/2025 1 1 [facility] Work Phone: reason for visit Narrative* Consultation (Routine) - Authorized Specialty Diagnoses / Procedures Referred By Contac t Referred To Contact Cardiology Diagnoses Severe aortic stenosis Danilo Gardner MD [address] [facility] [address], [address] [address] Phone: tel: fax: [place] [address] [place] [address] Phone: tel: fax: Referral ID Status Reason Start Date Expiration Date Visits Requested Visits Authorized [id number] Authorized Specialty Services Required 10/18/2024 10/18/2025 1 1 [facility] Work Phone: Reason for visit Narrative* Imaging (Routine) - Authorized Specialty Diagnoses / Procedures Referred By Bon montoya Referred To Contact Radiology Diagnoses Nonrheumatic aortic valve stenosis Procedures CT TAVR full contrast chest abdomen pelvis Amanda Ward, [employer]PER[employer] [address] [place] [address] Phone: tel: fax: Referral ID Status Reason Start Date Expiration Date Visits Requested Visits Authorized [id number] Authorized Perform Procedure 10/25/2024 10/25/2025 1 1 [facility] Work Phone: Reyxkz for visit Narrative* Auth/Cert Specialty Diagnoses / Procedures Referred By Bon montoya Referred To Contact Diagnoses Aortic stenosis Procedures CA REPLACE AORTIC VALVE PERQ FEMORAL ARTRY APPROACH TAVR (Transcatheter AV Replacement) TVP for TAV[place] [address] [place] [address] Phone: tel: fax: [facility] [place] [address] [facility] [address] [place] [address] Phone: tel: fax: Referral ID Status Reason Start Date Expiration Date Visits Re quested Visits Authorized [id number] 1 1 [facility] Work Phone: Chief Complaint and [...] Admit Date ASHD (arteriosclerotic heart disease) No vember 2023 11:25am Atrial fibrillation June 08, 2024 11:25am Benign prostatic hyperplasia with lower urinary tract symptoms June 08, 2024 11:25am Chronic bronchitis June 08, 2024 11:25am HTN (hypertension) June 08, 2024 11:25am Hypercholesterolemia June 08, 2024 11:25am ADEN (obstructive sleep apnea) May 202023 11:25am Chief Complaint Admit Date 2nd degree heart block September 14 8:00am 2nd degree heart block September 14 3:07pm Chief Complaint Admit Date 2nd degree heart block September 14 8:00am 2nd degree heart block September 14 3:07pm Severe Aortic Stenosis October 24, 2024 1 0:19am Advance Directives No Advanced Directives Records Found Advance Directive Response Recorded Date/ Time Advance Directives No March 03, 2018 11:15am Advance Directive Response Recorded Date/ Time Advance Directives No March 03, 2018 12:15pm Date Activated Date Inactivated Comments 11/17/2024 12:56 PM Question Answer Comments Plan of Care: Code Status Discussion Completed Decision Maker: Patient Date Activated Date Inactivated Comments 11/17/2024 8:24 AM 11/17/2024 12:56 PM Question Answer Comments Plan of Care: Code Status Discussion Completed Decision Maker: Patient Date Activated Date Inactivated Comments 11/17/2024 12:56 PM Question Answer Comments Plan of Care: Code Status Discussion Completed Decision Maker: Patient Date Activated Date Inactivated Comments 11/17/2024 8:24 AM 11/17/2024 12:56 PM Question Answer Comments Plan of Care: Code Status Discussion Completed Decision Maker: Patient Family History No Family History Records FoundUnknown [...] heart failure Unknown father Unknown mother Unknown Relationship Condition Age at Onset Recorded Date/T eric brother Coronary artery disease Unknown History of coronary artery bypass surgery Unknown brother Leukemia Unknown father Malignant neoplasm of colon Unknown Unknown mother Diabetes mellitus Unknown Congestive heart failure Unknown Chief Complaint Patient here S/P gen change done by Dr. Angel Woods MD at [facility] on 11/06/2021. Dr. Angel Albarran, DO in suite. Pt denies any cardiac compliants. Med list updated verbally. Pt was given ATBS andfinished them. Insertion site has no signs of drainage or infection. There are no sterri strips intact. Insertion site reviewed by Tenzin Martínez RN prior to discharge. To Dr. Angel Woods MD for review.ALAN ROTH is being seen for Results.ALAN ROTH is being seen for Results.ALAN ROTH is being seen for Results.ALAN ROTH is being seen for Results.results.results. Summary Purpose Reason for Referral Specialty Diagnoses / Procedures Referred By Contac t Referred To Contact Cardiology Diagnoses Aortic valve stenosis, etiology of cardiac valve disease unspecified Procedures Transthoracic Echo Complete CA ECHO TTHRC R-T 2D W/WOM-MODE COMPL SPEC&COLR D Danilo Gardner MD [address] [facility] [address], [address] [address] Referral ID Status Reason Start Date Expiration Date Visits Requested Visits Authorized [id number] Pending Review Perform Procedure 03/16/2024 03/16/2025 1 1 Specialty Diagnoses / Procedures Referred By Contac t Referred To Contact Cardiology Diagnoses 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 CHB (complete heart block) (Multi) Procedures Follow Up In Cardiology Danilo Gardner MD [address] [place] [address] [address], [address] [address] Danilo Gardner MD [address] [place] [address] [address], [address] [address] Referral ID Status Reason Start Date Expiration Date V isits Requested Visits Authorized [id number] Authorized 03/16/2024 03/16/2025 1 1 Additional Source Comments Care Teams (unrecognized sec tion and content) Team Status: Active Member Role Status Dates Ferny White DO Primary Care Provider Active Team Status: Active Member Role Status Dates Ferny White DO Primary Care Provide r, Attending Provider Active Start: March 06, 2024 Team Status: Inactive Member Role Status Dates Angel Woods MD Attending Provider Active Start: March 08, 2024 End: March 08, 2024 Ferny White DO Primary Care Provider Active Start: March 08, 2024 End: March 08, 2024 Team Status: Active Member Role Status Dates Caesar Glover MD Primary Care Provider Active Team Status: Inactive Member Role Status Dates Caesar Glover MD Primary Care Provider Active Angel Woods MD Attending Provider Active Team Status: Inactive Member Role Status Dates Caesar Glover MD Primary Care Provider, Attending Kali segovia Active Accident Report Clerk Relationship Specialty Start Date End Date Caesar [...] June 08, 2024 End: June 08, 2024 Accident Report Clerk Relationship Specialty Start Date End Date Caesar Glover MD [address] [place] [address] [place] [address] PCP - General 10/24/21 Team Status: Active Member Role Status Dates Ferny White DO Primary Care Provider Active Start: September 06, 2024 Stalin Onofre [facility] DO Attending Provider Active Start: September 06, 2024 Team Status: Active Member Role Status Dates Ferny White DO Primary Care Provider Active Start: September 14, 2024 Angel Woods MD Other Provider Active Start: September 14, 2024 Juan Manuel Haynes MD Attending Provider Active Start: September 14, 2024 Team Status: Inactive Member Role Status Dates Ferny White DO Primary Care Provider Active Start: September 14, 2024 End: September 14, 2024 Juan Manuel Haynes MD Attending Provider Active Start: September 14, 2024 End: September 14, 2024 Accident Report Clerk Relationship Specialty Start Date End Date Caesar Glover MD [address] [place] [address] [place] [address] PCP - General 10/24/21 Accident Report Clerk Relationship Specialty Start Date End Date Caesar Glover MD [address] [place] [address] [address] PCP - General 10/24/21 Accident Report Clerk Relationship Specialty Start Date End Date Caesar Glover MD [address] [place], [place] [address] [address] PCP - General 10/24/21 Team Status: Active Member Role Status Dates Ferny White DO Primary Care Provide r, Attending Provider Active Start: October 19, 2024 Team Status: Inactive Member Role Status Dates Ferny White DO Primary Care Provider Active Start: October 24, 2024 End: October 24, 2024 Danilo Gardner MD Attending Provider Active St art: October 24, 2024 End: October 24, 2024 Accident Report Clerk Relationship Specialty Start Date End Date Caesar Glover MD [address] [place] [id number] PCP - General 10/24/21 Accident Report Clerk Relationship Specialty Start Date End Date Caesar Glover MD [address] [place] [id number] PCP - General 10/24/21 Accident Report Clerk Relationship Specialty Start Date End Date Caesar Glover MD [address] [place] [id number] PCP - General 10/24/21 Accident Report Clerk Relationship Specialty Start Date End Date Caesar Glover MD [address] [place] [id number] PCP - General 10/24/21 Lupis Richey, STRAIGHT TRUCK DRIVER Resolution AgentLunchroom Mother 11/20/24 Danilo Gardner MD [address] [facility] 2, [facility] [address] [place] [address] Consulting Physician Cardiology 11/21/24 Goals (unrecognized section and content) Goals may [...] section and content) DATE CREATED AUTHOR 05/11/2022 [facility] DATE CREATED AUTHOR AUTHOR'S ORGANIZ ATION 08/15/2022 [facility] DATE CREATED AUTHOR AUTHOR'S ORGANIZ ATION 09/20/2022 [employer] DATE CREATED AUTHOR AUTHOR'S ORGANIZ ATION 11/13/2024 [facility] DATE CREATED AUTHOR AUTHOR'S ORGANIZ ATION 11/16/2024 [facility] DATE CREATED AUTHOR AUTHOR'S ORGANIZ ATION 11/23/2024 [facility] DATE CREATED AUTHOR AUTHOR'S ORGANIZ ATION 11/24/2024 [facility] DATE CREATED AUTHOR AUTHOR'S ORGANIZ ATION 11/26/2024 [facility] DATE CREATED AUTHOR AUTHOR'S ORGANIZ ATION 11/26/2024 [facility] DATE CREATED AUTHOR AUTHOR'S ORGANIZ ATION 11/27/2024 [facility] DATE CREATED AUTHOR AUTHOR'S ORGANIZ ATION 11/27/[address] [facility] REASON FOR VISIT (unrecogniz ed section and content) Reason Comments Follow-up 9 month Reason Comments Follow-up 9 month Specialty Diagnoses / Procedures Referred By [place] Referred To Contact Cardiology Diagnoses 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 CHB (complete heart block) (Multi) Essential hypertension Procedures Follow Up In Cardiology Angel Woods MD Retired From Practice Angel Woods MD Retired From Practice Referral ID Status Reason Start Date Expiration Date V isits Requested Visits Authorized [id number] Authorized 06/14/2023 06/13/2024 1 1 Reason Comments Follow-up 6month Follow up for Coronary Artery Disease echo results Specialty Diagnoses / Procedures Referred By Contac t Referred To Contact Cardiology Diagnoses 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 CHB (complete heart block) Procedures Follow Up In Cardiology Danilo Gardner MD [address] [place] [address] [address], [address] [address] Phone: tel: fax: Danilo Gardner MD [address] [facility] [address], [address] [address] Phone: tel: fax: Referral ID Status Reason Start Date Expiration Date V isits Requested Visits Authorized [id number] Authorized 03/16/2024 03/16/2025 1 1 Reason Comments Follow-up TCM hospital follow up, [facility] 11/17/24 Scheduled Active and Recently Administ ered Medications (unrecognized section and content) Medication Order 11/17/2024 11/18/2024 11/19/2024 alfuzosin (Uroxatral) 24 hr tablet 10 mg 10 mg, oral, Nightly, First dose on Wed11/17/24 at 2100, Do not crush, chew, or split. 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 0945 (Given - Provider: Xi Kunz RN) 0857 (Given - Provider: Xi uKnz RN) atorvastatin (Lipitor) tablet 20 mg 20 mg, oral, Nightly, First dose on Wed11/17/24 at 2100 2056 (Given - Provider: Aileen Rios LPN) 2100 (Given - Provider: Meeta Vickers, MILO) 2099 (Due) docusate sodium (Colace) capsule 100 mg 100 mg, oral, 2 times daily, First dose on Wed11/17/24 at 1315, Phase II/On Unit, Bowel Regimen - for prevention of constipation Hold for loose stools 1302 (Not Given - Provider: Xi Kunz RN - Reason: Patient/family refused - Comment: had a BM today already)2056 (Given - Provider: Aileen Rios LPN) 0945 (Given - Provider: Xi Kunz RN)2100 (Not Given - Provider: Meeta Vickers RN - Reason: Patient/family refused) 0857 (Not Given - Provider: Xi Kunz RN - Reason: Patient/family refused)2099 (Due) fluticasone furoate-vilanteroL (Breo Ellipta) 100-25 mcg/dose inhaler 1 puff(Linked Group 1) 1 puff, inhalation, Daily RT, First dose on 11/18/24 at 0700 0804 (Not Given - Provider: Yola Nick RRT - Reason: Medication not available) 1046 (Not Given - Provider: Cruz Davis - Reason: Medication not available) folic acid (Folvite) tablet 0.8 mg 0.8 mg, oral, Daily, First dose on 11/18/24 at 0900 0945 (Given - Provider: Xi Kunz RN) 0857 (Given - Provider: Xi Kunz RN) furosemide (Lasix) injection 20 mg (COMPLETED) 20 mg, intravenous, Once, On Wed11/17/24 at 1845, For 1 dose, For doses less than or = 160 mg, give IV push at maximum rate of 40 mg/min For doses greater than 160 mg, dilute in 50 mL and administer at 4 mg/min 1843 (Given - Provider: Xi Kunz RN) furosemide (Lasix) injection 40 mg (COMPLETED) 40 mg, intravenous, Once, On Wed11/17/24 at 1315, For 1 dose, Phase II/On Unit, To be given when pt arrives to the nursing floor 1304 (Given - Provider: Xi Kunz RN) heparin (porcine) injection 5,000 Units 5,000 Units, subcutaneous, Every 8 hours, First dose on Wed11/19/24 at 0000, Phase II/On Unit 0030 (Given - Provider: Meeta Vickers, MILO)0858 (Given - Provider: Xi Kunz RN)1707 (Not Given - Provider: Xi Kunz RN - Reason: Other - Comment: pt being discharged) pantoprazole (ProtoNix) EC tablet 40 mg(Linked Group 2) 40 mg, oral, Daily before breakfast, First dose on 11/18/24 at 0700, Phase II/On Unit, Do not crush, chew, or split. 0641 (Given - Provider: Aileen Rios LPN) 0600 (See Alternative - Provider: Meeta Vickers RN) pantoprazole (Protonix) injection 40 mg(Linked Group 2) 40 mg, intravenous, Administer over 2 Minutes, Daily before breakfast, First dose on 11/18/24 at 0700, Phase II/On Unit, Give if unable to take by mouth. Reconstitute each 40 mg vial with 10 mL NS to make 4 mg/mL solution. 0641 (See Alternative - Provider: Aileen Rios LPN) 0600 (Given - Provider: Meeta Vickers RN) perflutren lipid microspheres (Definity) injection 0.5-10 mL of dilution 0.5-10 mL of dilution, intravenous, Once in imaging, Starting on Wed11/17/24 at 1256, For 1 dose, CV Medications, Contrast - for use by imaging provider only. Prior to administration, Definity product must be activated. First, bring vial to room temperature. Then, shake vial for 45 seconds. Do not use if the 45 second activation cycle has not been completed. Following activation, the product will appear as a milky white suspension and may be used immediately. If not used within 5 minutes of activation, re-suspend by inverting and shaking the vial for 10 seconds. Discard unused product. Administration: Dilute 1.3 mL of activated DEFINITY with 8.7 mL of normal saline in a 10 mL syringe. Inject 0.5 mL of diluted DEFINITY when notified the images/film are unclear to enhance view of Left Ventricular borders. Repeat 0.5 mL of DEFINITY until clear images are obtained, not to exceed 10 mLs. Once images are obtained or limit of medication is reached, flush line with 10 mL of Normal Saline. perflutren lipid microspheres (Definity) injection 0.5-10 mL of dilution (COMPLETED) 0.5-10 mL of dilution, intravenous, Once in imaging, Starting on Wed11/17/24 at 1256, For 1 dose, CV Medications, Contrast - for use by imaging provider only. Prior to administration, Definity product must be activated. First, bring vial to room temperature. Then, shake vial for 45 seconds. Do not use if the 45 second activation cycle has not been completed. Following activation, the product will appear as a milky white suspension and may be used immediately. If not used within 5 minutes of activation, re-suspend by inverting and shaking the vial for 10 seconds. Discard unused product. Administration: Dilute 1.3 mL of activated DEFINITY with 8.7 mL of normal saline in a 10 mL syringe. Inject 0.5 mL of diluted DEFINITY when notified the images/film are unclear to enhance view of Left Ventricular borders. Repeat 0.5 mL of DEFINITY until clear images are obtained, not to exceed 10 mLs. Once images are obtained or limit of medication is reached, flush line with 10 mL of Normal Saline. 0921 (Given - Provider: Shanthi Correa, RT - Comment: Definity administered per protocol. Patient tolerated without any complicaions) sertraline (Zoloft) tablet 100 mg 100 mg, oral, Daily, First dose on 11/18/24 at 0900 0945 (Given - Provider: Xi Kunz RN) 0857 (Given - Provider: Xi Kunz RN) tiotropium (Spiriva Respimat) 2.5 mcg/actuation inhaler 2 puff(Linked Group 1) 2 puff, inhalation, Daily RT, First dose on 11/18/24 at 0700, Label inhaler with 3 month expiration date after inserting canister. 0804 (Not Given - Provider: Yola Nick, SEEING EYE DOG TRAINER - Reason: Medication not available) 1046 (Not Given - Provider: Cruz Davis - Reason: Medication not available) vancomycin 1,500 mg in NS IV 500 mL (COMPLETED) 1,500 mg, intravenous, at 333.3 mL/hr, Administer over 90 Minutes, Once, On Wed11/17/24 at 0845, For 1 dose, Preprocedure, Administer within 120 minutes prior to incision. Premix Bag, Dosing of this medication varies based on severity of illness. Does this patient have sepsis or concern for sepsis (probable or documented infection plus systemic manifestations of infection)? No, Suspected Indication (Select all that apply): Surgical Prophylaxis, Indications: Surgical Prophylaxis 0845 (Canceled Entry - Provider: Xi Kunz, MILO)1021 (New Bag - Provider: Emily Garcia RN - Comment: for prophylaxis) PRN Medication Order 11/17/2024 11/18/2024 11/19/2024 acetaminophen (Tylenol) oral liquid 650 mg(Linked Group 3) 650 mg, oral, Every 6 hours PRN, pain mild (1-3), first line, Starting on Wed11/17/24 at 1256, Phase II/On Unit, Give oral liquid if patient prefers or per feeding tube if present. If inadequate response within 60 minutes, proceed to next-line agent for same PRN reason or contact provider if no further options ordered. acetaminophen (Tylenol) suppository 650 mg(Linked Group 3) 650 mg, rectal, Every 6 hours PRN, pain mild (1-3), first line, Starting on Wed11/17/24 at 1256, Phase II/On Unit, Give rectally if unable to administer by mouth or feeding tube. If inadequate response within 60 minutes, proceed to next-line agent for same PRN reason or contact provider if no further options ordered., If ordered PRN for pain, nurse is permitted to administer this medication for higher pain scores based on patient preference? Yes acetaminophen (Tylenol) tablet 650 mg(Linked Group 3) 650 mg, oral, Every 6 hours PRN, pain mild (1-3), first line, Starting on Wed11/17/24 at 1256, Phase II/On Unit, If inadequate response within 60 minutes, proceed to next-line agent for same PRN reason or contact provider if no further options ordered., If ordered PRN for pain, nurse is permitted to administer this medication for higher pain scores based on patient preference? Yes fentaNYL PF (Sublimaze) injection (CANCELED) As needed, Starting on Wed11/17/24 at 1022, Intraprocedure 1022 (Given - Provider: Emily Garcia RN - Comment: sedation)1034 (Given - Provider: Emily Garcia RN - Comment: sedation)1120 (Given - Provider: Emily Garcia RN - Comment: sedation) heparin 1,000 unit/mL injection (CANCELED) As needed, Starting on Wed11/17/24 at 1058, Intraprocedure 1058 (Given - Provider: Emily Garcia RN - Comment: for anticoagulation verified by Chelsie RN)1114 (Given - Provider: Emily Garcia RN - Comment: anticoagulation verified by Chelsie RN)1141 (Given - Provider: Emily Garcia RN) iohexol (OMNIPaque) 350 mg iodine/mL solution (CANCELED) As needed, Starting on Wed11/17/24 at 1212, Intraprocedure 1212 (Given - Provider: Beto Hunter MD) ipratropium-albuteroL (Duo-Neb) 0.5-2.5 mg/3 mL nebulizer solution 3 mL 3 mL, nebulization, 4 times daily PRN, wheezing, shortness of breath, Starting on Wed11/17/24 at 0843 1649 (Given - Provider: Xi Kunz RN) lidocaine PF (Xylocaine) 10 mg/mL (1 %) injection (CANCELED) As needed, Starting on Wed11/17/24 at 1027, Intraprocedure 1027 (Given - Provider: Garrett Schroeder MD - Comment: R groin)1045 (Given - Provider: Garrett Schroeder MD - Comment: L groin) lidocaine-epinephrine (Xylocaine W/EPI) 2 %-1:100,000 injection 5 mL 5 mL, subcutaneous, Once as needed, groin bleed, Starting on Wed11/17/24 at 1256, For 1 dose, Phase II/On Unit, Inject at site of bleed midazolam (Versed) injection (CANCELED) As needed, Starting on Wed11/17/24 at 1022, Intraprocedure 1022 (Given - Provider: Emily Garcia RN - Comment: sedation)1033 (Given - Provider: Emily Garcia RN - Comment: sedation)1120 (Given - Provider: Emily Garcia RN - Comment: sedation) ondansetron (Zofran) injection 4 mg(Linked Group 4) 4 mg, intravenous, Every 8 hours PRN, nausea/vomiting, first line, Starting on Wed11/17/24 at 1256, Phase II/On Unit, 1st Line. Give IV if patient is unable to take orally. If inadequate response within 60 minutes, proceed to next-line agent for same PRN reason or contact provider if no further options ordered. When administering via IV Push, administer over 3-5 minutes. ondansetron ODT (Zofran-ODT) disintegrating tablet 4 mg(Linked Group 4) 4 mg, oral, Every 8 hours PRN, nausea/vomiting, first line, Starting on Wed11/17/24 at 1256, Phase II/On Unit, 1st Line. Patient should allow tablet to dissolve on tongue. Do not remove from blister pack until just before administering. If inadequate response within 60 minutes, proceed to next-line agent for same PRN reason or contact provider if no further options ordered. oxygen (O2) therapy inhalation, Continuous PRN - O2/gases, other, Starting on Wed11/17/24 at 1256, Phase II/On Unit, Wean oxygen therapy as tolerated., Device: Nasal Cannula, Rate in liters per minute: 2 LPM, Keep O2 Sat Above: 92% oxygen (O2) therapy (CANCELED) Continuous PRN, Starting on Wed11/17/24 at 1000, Intraprocedure 1000 (Given - Provider: Emily Garcia RN) protamine injection (COMPLETED) Continuous PRN, Starting on Wed11/17/24 at 1212, Intraprocedure 1212 (New Bag - Provider: Ximena Turner RN) sodium chloride 0.9% infusion (COMPLETED) Continuous PRN, Starting on Wed11/17/24 at 1003, Intraprocedure 1003 (New Bag - Provider: Emily Garcia RN - Comment: KVO)1042 (New Bag - Provider: Emily Garcia RN - Comment: KVO to venous sheath) traMADol (Ultram) tablet 50 mg 50 mg, oral, Every 6 hours PRN, pain moderate (4-6), first line, Starting on Wed11/17/24 at 1256, Phase II/On Unit, If ordered PRN for pain, nurse is permitted to administer this medication for higher pain scores based on patient preference? Yes Linked Groups Order Group 1: tiotropium (Spiriva Respimat) 2.5 mcg/actuation inhaler 2 puffJump to med 2 puff, inhalation, Daily RT, First dose on 11/18/24 at 0700, Label inhaler with 3 month expiration date after inserting canister. And fluticasone furoate-vilanteroL (Breo Ellipta) 100-25 mcg/dose inhaler 1 puffJump to med 1 puff, inhalation, Daily RT, First dose on 11/18/24 at 0700 Group 2: pantoprazole (ProtoNix) EC tablet 40 mgJump to med 40 mg, oral, Daily before breakfast, First dose on 11/18/24 at 0700, Phase II/On Unit, Do not crush, chew, or split. Or pantoprazole (Protonix) injection 40 mgJump to med 40 mg, intravenous, Administer over 2 Minutes, Daily before breakfast, First dose on 11/18/24 at 0700, Phase II/On Unit, Give if unable to take by mouth. Reconstitute each 40 mg vial with 10 mL NS to make 4 mg/mL solution. Group 3: acetaminophen (Tylenol) tablet 650 mgJump to med 650 mg, oral, Every 6 hours PRN, pain mild (1-3), first line, Starting on Wed11/17/24 at 1256, Phase II/On Unit, If inadequate response within 60 minutes, proceed to next-line agent for same PRN reason or contact provider if no further options ordered., If ordered PRN for pain, nurse is permitted to administer this medication for higher pain scores based on patient preference? Yes Or acetaminophen (Tylenol) oral liquid 650 mgJump to med 650 mg, oral, Every 6 hours PRN, pain mild (1-3), first line, Starting on Wed11/17/24 at 1256, Phase II/On Unit, Give oral liquid if patient prefers or per feeding tube if present. If inadequate response within 60 minutes, proceed to next-line agent for same PRN reason or contact provider if no further options ordered. Or acetaminophen (Tylenol) suppository 650 mgJump to med 650 mg, rectal, Every 6 hours PRN, pain mild (1-3), first line, Starting on Wed11/17/24 at 1256, Phase II/On Unit, Give rectally if unable to administer by mouth or feeding tube. If inadequate response within 60 minutes, proceed to next-line agent for same PRN reason or contact provider if no further options ordered., If ordered PRN for pain, nurse is permitted to administer this medication for higher pain scores based on patient preference? Yes Group 4: ondansetron ODT (Zofran-ODT) disintegrating tablet 4 mgJump to med 4 mg, oral, Every 8 hours PRN, nausea/vomiting, first line, Starting on Wed11/17/24 at 1256, Phase II/On Unit, 1st Line. Patient should allow tablet to dissolve on tongue. Do not remove from blister pack until just before administering. If inadequate response within 60 minutes, proceed to next-line agent for same PRN reason or contact provider if no further options ordered. Or ondansetron (Zofran) injection 4 mgJump to med 4 mg, intravenous, Every 8 hours PRN, nausea/vomiting, first line, Starting on Wed11/17/24 at 1256, Phase II/On Unit, 1st Line. Give IV if patient is unable to take orally. If inadequate response within 60 minutes, proceed to next-line agent for same PRN reason or contact provider if no further options ordered. When administering via IV Push, administer over 3-5 minutes. FOR RECORDS PERTAINING TO PATIENTS WHO ARE [...] BE BASED ON THE PRIMARY CLINICAL RECORDS. [employer] [facility]. provides no warranty or guarantee of the accuracy or completeness of information in this document.
== END 2024-11-29 10:27 | disposition home or self-care (01) ==
LOC: CT 10:26
PROVIDERS: PCP Internal Medicine; Visit Provider Internal Medicine
DX: R91.8 Other nonspecific abnormal finding of lung field (principal); J43.9 Emphysema, unspecified
CPT/HCPCS: 71250

== ENCOUNTER 2025-03-07 09:53 | Outpatient (OUT) | payer MEDICARE, SELFPAY ==
[2025-03-07 11:00] LABS: Hematocrit 45.5 % (42.0-54.0); Hemoglobin 14.8 g/dL (14.0-18.0); Immature Granulocytes Abs Auto 0.04 10^3/uL (0.00-0.03); Immature Granulocytes Pct Auto 0.5 % (0.0-0.5); Lymphocytes Absolute Auto 1.3 10^3/uL (1.2-3.8); Mean Corpuscular HGB Conc 32.5 g/dL (29.9-35.2); Mean Corpuscular Hemoglobin 30.8 pg (25.9-34.0); Mean Corpuscular Volume 94.6 fL (80.0-94.0); Platelet Count 163 10^3/uL (150-450); Red Blood Count 4.81 10^6/uL (4.70-6.10); White Blood Count 8.5 10^3/uL (4.0-11.0)
[2025-03-07 11:48] LABS: Alanine Aminotransferase 22 U/L (16-63); Albumin Globulin Ratio 1.0; Albumin Level 4.0 g/dL (3.4-5.0); Alkaline Phosphatase 74 U/L (46-116); Anion Gap 10.0; Aspartate Amino Transferase 19 U/L (15-37); Blood Urea Nitrogen 15.0 mg/dL (7.0-18.0); Calcium 9.2 mg/dL (8.5-10.1); Carbon Dioxide 29.4 mmol/L (21.0-32.0); Chloride 105 mmol/L (98-107); Estimated GFR (African America >60 (>=60 mL/min/1.73m^2); Estimated GFR (Non-African Ame >60 (>=60 mL/min/1.73m^2); Globulin 4.1 g/dL; Glucose 99 mg/dL (74-106); Potassium 3.4 mmol/L (3.5-5.1); Sodium 141 mmol/L (136-145); Thyroid Stimulating Hormone 2.291 uIU/mL (0.358-3.740); Total Protein 8.1 g/dL (6.4-8.2)
[2025-03-07 12:05] LABS: Glucose Urine UA NEGATIVE (NEGATIVE)
[2025-03-07 12:49] LABS: Cast Seen? NONE SEEN #/LPF (NONE SEEN); Crystals Seen? None Seen #/HPF (None Seen)
== END 2025-03-07 09:54 | disposition home or self-care (01) ==
LOC: LAB 09:54
PROVIDERS: PCP Internal Medicine; Visit Provider Internal Medicine
DX: R31.0 Gross hematuria (principal); I10 Essential (primary) hypertension; I25.10 Atherosclerotic heart disease of native coronary artery without angina pectoris; R63.4 Abnormal weight loss
CPT/HCPCS: 36415; 80053; 81001; 84439; 84443; 84480; 85025

== ENCOUNTER 2025-05-24 07:08 | Outpatient (RCR) | payer MEDICARE, SELFPAY ==
--- NOTE | 2025-01-01 10:43 | CR1_ITS ---
The [facility] Test Date: 2025-01-02 Pat Name: BERNARD HERRERA Department: Room: - Gender: Male Core Filer: : 1945 Requested By: Chepe Giron Order Number: [id number] Reading MD: Chepe Giron Interpretive Statements Okay to proceed with outlined treatment plan. Electronically Signed On 01-03-2025 17:59:08 EDT by Chepe Giron
--- NOTE | 2025-01-01 14:47 | PC.NURSE ---
Cardiac Rehab Orientation The following information was reviewed with the patient during Orientation: [X] 1. Program rights and responsibilities [ X] 2. Attendance Policy [ X] 3. Patients insurance coverage and copayment [ X] 4. Patients current medication list, and purpose for medications [ X] 5. Patients Qualifying diagnosis and procedure history [ X] 6. Patient health history Patients completed the following forms during Orientation: [ X] 1. Knowledge Test [ X] 2. PHQ 9 [X ] 3. SF 36 [X ] 4. Rate your plate [ ] 5. COPD Assessment [ ] 6. Tobacco Use and Dependence Questionnaire Additional Comments: The following fax was sent to Dr. Ledezma who is managing patients BIPAP and to [facility] cardiology to update on the patients condition. I also spoke to patients crosscutter in person, Dr. Giron to update on patients condition. Alan Roth : 49. Was seen in our office today for an orientation for cardiac rehab. 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 He said ?I had it at home and took it before surgery so I thought I could take it again.? We educated patient to never take medication without discussing it with the provider. He is also taking prescription Trazodone from his PCP and stated, ?I didn?t think they would care because it is not a heart medication.? Finally, patient states he was still having difficulty sleeping despite the trazodone so he has since stopped wearing his bipap at night. Patient was educated on purpose and importance of wearing it and potential risks of not. Patient was encouraged to follow up with your office regarding his concerns and to reach out regarding medication. Please let us know if you need any additional questions or need any additional information.
--- NOTE | 2025-01-02 07:25 | PC.NURSE ---
Patient completed admission paperwork during his orientation. The following fax was sent to his primary care provider Dr. White. Test results were also discussed in person during his orientation on 01-01-25 regarding the possible need to mental health services, or a medication change and it was encouraged that he make an appointment with his provider. Good morning, Our mutual patient Alan Roth : 49, was recently admitted to cardiac rehab. During his admission paperwork he completed a PHQ9 mental health questionnaire and scored a 22. Per our protocol anything over an 11 must be discussed with the patient, and the provider must be made aware. We spoke with Callie about the possible need to adjust his mental health medication and encouraged him to make an appointment at your office to discuss it. We also wanted to be sure you were made aware. If you have any additional questions please reach out. Thank you, -The Rehab Staff
--- NOTE | 2025-01-04 13:19 | CR1_ITS ---
The [facility] Test Date: 2025-01-04 Pat Name: BERNARD HERRERA Department: Room: - Gender: Male Balloon Design Printer: : 1945 Requested By: Chepe Giron Order Number: [id number] Reading MD: Chepe Giron Interpretive Statements Okay to proceed with outlined treatment plan. Electronically Signed On 01-08-2025 12:23:55 EDT by Chepe Giron
--- NOTE | 2025-01-24 09:32 | CR1_ITS ---
The [facility] Test Date: 2025-01-24 Pat Name: BERNARD HERRERA Department: Room: - Gender: Male Food Server: : 1945 Requested By: Chepe Giron Order Number: [id number] Reading MD: Chepe Giron Interpretive Statements He may not notice a significant improvement, but he must also understand that he is not worsening which is a main goal of rehabilitation. Continue current treatment plan. Electronically Signed On 01-24-2025 10:15:13 EDT by Chepe Giron
--- NOTE | 2025-02-23 09:50 | CR1_ITS ---
The [facility] Test Date: 2025-02-23 Pat Name: BERNARD HERERRA Department: Room: - Gender: Male Obstetrics Technician: : 1945 Requested By: PAGE NI M.D. Order Number: [id number] Anisa MD: PAGE IN M.D. Interpretive Statements Patient may continue cardiac rehab as outlined in the treatment plan. Electronically Signed On 02-23-2025 10:28:25 EDT by PAGE NI M.D.
--- NOTE | 2025-03-27 09:57 | CR1_ITS ---
The [facility] Test Date: 2025-03-27 Pat Name: BERNARD HERRERA Department: Room: - Gender: Male Cae Engineer: : 1945 Requested By: [id number] Order Number: [id number] Anisa MD: PAGE NI M.D. Interpretive Statements Patient may continue cardiac rehab as outlined in the treatment plan. Electronically Signed On 04-04-2025 18:01:05 EDT by PAGE NI M.D.
--- NOTE | 2025-04-26 09:21 | CR1_ITS ---
The [facility] Test Date: 2025-04-26 Pat Name: BERNARD HERRERA Department: Room: - Gender: Male Promotions Director: : 1945 Requested By: EVA FARLEY Order Number: [id number] Anisa MD: PAGE NI M.D. Interpretive Statements Patient may continue cardiac rehab as outlined in the treatment plan. Electronically Signed On 04-26-2025 10:53:08 EDT by PAGE NI M.D.
--- NOTE | 2025-05-24 10:42 | CR1_ITS ---
The [facility] Test Date: 2025-05-24 Pat Name: BERNARD HERRERA Department: Room: - Gender: Male Rf Technician: : 1945 Requested By: PAGE NI M.D. Order Number: [id number] Anisa MD: PAGE NI M.D. Interpretive Statements Patient has completed rehab program and have noted outcomes. Electronically Signed On 05-24-2025 20:35:01 EST by PAGE NI M.D.
== END 2025-05-24 13:12 | disposition home or self-care (01) ==
LOC: CR 07:08
PROVIDERS: PCP Internal Medicine
DX: Z95.2 Presence of prosthetic heart valve (principal)
CPT/HCPCS: 93798